=== PATIENT | female | born 1965 | race Caucasian/White ===

== ENCOUNTER 2016-07-26 23:13 | Emergency (ER) | payer OTHER ==
[~2016-07-26] VITALS: Ht 170.2 cm; Wt 92.1 kg
[~2016-07-26 23:13] MED LIST: CLON1TAB3 PO; CMD/25 PO; MXL10 PO; ONDA4TAB7 SL; SERT50TA PO; TRAZ100T29 PO; WARF5TAB90 PO
[2016-07-26 23:20] VITALS: TEMP 36.5; Ht 170.2 cm; Wt 92.1 kg
[2016-07-26] MEDS ORDERED: MoRPHine SULFATE 10 MG/ML CARP/VIAL ONE (23:21)
[2016-07-26] MEDS ORDERED: SODIUM CHLORIDE 0.9% 1000ML 1,000 ML IV STA (23:29)
[2016-07-26] MEDS ORDERED: PROCHLORPERAZINE 5 MG/ML 2 ML VIAL IV STA (23:29)
[2016-07-26] MEDS ORDERED: MoRPHine SULFATE 4 MG/ML 1 ML CARP\\VIAL IV STA (23:29)
[2016-07-26] MEDS ORDERED: DiphenhydrAMINE HCL 50 MG/ML VIAL IV STA (23:29)
[2016-07-26] MEDS ORDERED: ZLF/100 PO (23:37)
--- NOTE | 2016-07-26 23:37 | EMERGENCY ROOM VISIT NOTE ---
History Report prepared by Malick: Kathy Rosario Under the Supervision of: Dr. Kenneth Garber M.D. First contact with patient: 23:19 Chief Complaint: ABDOMINAL PAIN Stated Complaint: ABD PAIN History of Present Illness The patient is a 51 year old female who presents to the Emergency Room with complaints of persistent epigastric abdominal pain that began around 1899. She currently rates her discomfort as a 9/10 in severity. The patient states that her pain started a few days ago in the epigastric and in the left flank. She additionally notes that a few days ago she developed a migraine, but she states that she experiences these from time to time. The patient states that she feels full, but her daughter notes that the patient eats to the point that makes her sick and vomit. She additionally notes nausea and lightheadedness today. The patient denies any diarrhea or recent fall. The patient's daughter notes that the patient has been off balance for the past few days, but additionally notes that she has had this problem in the past. She denies taking any narcotic pain medications on a daily basis any more, noting that she only takes medications for her migraines. Per nursing staff, the patient received 6 mg of Morphine prior to arrival. Per records the patient has had 14 Cat Scans of her abdomen/pelvis in the last three years. Source of History: patient Onset: 1899 Position: abdomen (epigastric) Symptom Intensity: 9/10 Timing: other (persistent) Associated Symptoms: + headache (migraine), + nausea, + vomiting, No diarrhea Note: Associated Symptoms: feeling full, lightheaded Review of Systems See HPI for pertinent positives & negatives. A total of 10 systems reviewed and were otherwise negative. Past Medical & Surgical Medical Problems: (1) Anticoagulant long-term use (2) Depression (3) Flank pain (4) History of obesity (5) History of pulmonary embolism (6) Migraine headache (7) Severe malnutrition (8) Symptomatic anemia Surgical Problems: (1) Status post cholecystectomy (2) Status post gastric bypass for obesity (3) Status post hysterectomy (4) Status post splenectomy Family History Diabetes mellitus FH: cancer FH: heart disease Social History Smoking Status: Current Every Day Smoker Alcohol Use: none Drug Use: none Marital Status: Housing Status: lives with family Occupation Status: unemployed Current/Historical Medications Scheduled Calcium Carbonate (Tums), 1 TAB PO DAILY Clonazepam (Klonopin), 1 MG PO TID Coenzyme Q10 (Ubidecarenone) (Co Q-10), 150 MG PO BID Cyanocobalamin (Cyanocobalamin), 1 DOSE INJ EVERY 3 MONTHS Magnesium Oxide (mg Supplement (Magnesium Oxide), 500 MG PO DAILY Multivitamin (Multivitamin), 1 TAB PO DAILY Onabotulinumtoxina (Botox), 1 DROP INJ EVERY 3 MONTHS Riboflavin (Vitamin B-2), 200 MG PO BID Sertraline HCl (Sertraline HCl), 100 MG PO DAILY Warfarin Sodium (Coumadin), 5 MG PO DAILY Scheduled PRN Ondansetron Hcl (Zofran), 4 MG PO Q6 PRN for Nausea Rizatriptan Benzoate (Rizatriptan Benzoate), 10 MG PO UD PRN for Headache Trazodone Hcl (Trazodone), 100 MG PO HS PRN for Sleep Allergies Coded Allergies: Latex1 -Allergic Contact Dermititis (Verified Allergy, Unknown, RASH, ) Sulfa Antibiotics (Verified Allergy, Unknown, HIVES, 07/26/16) Physical Exam Vital Signs Date Time Temp Pulse Resp B/P Pulse Ox O2 Delivery O2 Flow Rate FiO2 07/27/16 01:19 66 18 100/55 98 07/27/16 00:27 63 18 104/60 97 07/26/16 23:20 36.5 83 18 124/73 98 Room Air Physical Exam GENERAL: Patient is uncomfortable appearing, anxious appearing, in moderate distress. HEENT: No acute trauma, normocephalic atraumatic, mucous membranes moist, no nasal congestion, no scleral icterus. NECK: No stridor, no adenopathy, no meningismus, trachea is midline. LUNGS: No dyspnea. Clear to auscultation and equal bilaterally. No wheeze, no rhonchi. HEART: Regular rate and rhythm. No murmurs, rubs, gallops appreciated. ABDOMEN: Patient begins moaning in pain prior to abdominal exam. Unable to palpate as patient states that it is too painful. Unable to listen to bowel sounds as patient won't let me. BACK: No midline tenderness, no CVA tenderness EXTREMITIES: Normal motion all extremities, no cyanosis, no edema. NEUROLOGIC: Alert and oriented, no acute motor or sensory deficits, no focal weakness, cranial nerves grossly intact. SKIN: No rash, no jaundice, no diaphoresis. Medical Decision & Procedures ER Provider Diagnostic Interpretation: X ray results and stated below per my interpretation and radiologist interpretation. Other radiology results and stated below per my review and radiologist interpretation: CT Head: Comparison: CT dated 12/08/2015 No intracranial hemorrhage, acute infarct or other acute intracranial abnormality. CT Abdomen and Pelvis: Comparison: CT dated 05/08/2016 Stable postsurgical changes of gastric bypass, cholecystectomy, splenectomy and hysterectomy. Pleural thickening at the left lung base, possibly scarring related to adjacent surgery. No large fluid collection or drainable abscess visualized. No evidence of acute appendicitis, bowel obstruction or free air. Moderate stool in the colon. Correlate clinically for fecal retention. Stable configuration of the liver with left hepatic lobe atrophy. Stable heterogeneity of the liver. Stable 1.2 cm hypodensity in the right hepatic lobe. Atelectasis versus scarring at the left lung base. Radiologist: Mami Dumont MD Study ready at 0041 and initial results transmitted at 0056 Laboratory Results 07/26/16 23:40 Red Blood Count 5.17, Mean Corpuscular Volume 86.8, Mean Corpuscular Hemoglobin 30.0, Mean Corpuscular Hemoglobin Concent 34.5, Mean Platelet Volume 10.1, Neutrophils (%) (Auto) 49.5, Lymphocytes (%) (Auto) 37.2, Monocytes (%) (Auto) 10.7, Eosinophils (%) (Auto) 1.9, Basophils (%) (Auto) 0.5, Neutrophils # (Auto ) 6.41, Lymphocytes # (Auto) 4.80, Monocytes # (Auto) 1.38, Eosinophils # (Auto ) 0.24, Basophils # (Auto) 0.06 07/26/16 23:40 Test 07/26/16 23:35 07/26/16 23:38 07/26/16 23:40 07/26/16 23:45 Urine Color YELLOW Urine Appearance CLEAR (CLEAR) Urine pH 5.5 (4.5-7.5) Urine Specific [place] 1.003 (1.000-1.030) Urine Protein NEG (NEG) Urine Glucose (UA) NEG (NEG) Urine Ketones NEG (NEG) Urine Occult Blood NEG (NEG) Urine Nitrite NEG (NEG) Urine Bilirubin NEG (NEG) Urine Urobilinogen NEG (NEG) Urine Leukocyte Esterase NEG (NEG) Urine WBC (Auto) 1-5 /hpf (0-5) Urine RBC (Auto) 0-4 /hpf (0-4) Urine Hyaline Casts (Auto) 0 /lpf (0-5) Urine Epithelial Cells (Auto) 5-10 /lpf (0-5) Urine Bacteria (Auto) NEG (NEG) Bedside Hemoglobin 16.7 g/dl (12.0-16.0) Bedside Hematocrit 49 % (37-47) Bedside Sodium 145 mEq/L (135-144) Bedside Potassium 3.9 mEq/L (3.3-5.0) Bedside Chloride 104 mEq/L (101-112) Bedside Total CO2 25 mEq/l (24-31) Bedside Blood Urea Nitrogen 10 mg/dl (7-18) Bedside Creatinine 0.7 mg/dl (0.6-1.3) Bedside Glucose (other) 84 mg/dl (70-99) Bedside Ionized Calcium (Dionne) 1.18 mmol/l (1.12-1.32) White Blood Count 12.92 K/uL (4.8-10.8) Red Blood Count 5.17 M/uL (4.2-5.4) Hemoglobin 15.5 g/dL (12.0-16.0) Hematocrit 44.9 % (37-47) Mean Corpuscular Volume 86.8 fL (80-100) Mean Corpuscular Hemoglobin 30.0 pg (25-34) Mean Corpuscular Hemoglobin Concent 34.5 g/dl (32-36) Platelet Count 330 K/uL (130-400) Mean Platelet Volume 10.1 fL (7.4-10.4) Neutrophils (%) (Auto) 49.5 % Lymphocytes (%) (Auto) 37.2 % Monocytes (%) (Auto) 10.7 % Eosinophils (%) (Auto) 1.9 % Basophils (%) (Auto) 0.5 % Neutrophils # (Auto) 6.41 K/uL (1.4-6.5) Lymphocytes # (Auto) 4.80 K/uL (1.2-3.4) Monocytes # (Auto) 1.38 K/uL (0.11-0.59) Eosinophils # (Auto) 0.24 K/uL (0-0.5) Basophils # (Auto) 0.06 K/uL (0-0.2) RDW Standard Deviation 63.4 fL (36.4-46.3) RDW Coefficient of Variation 20.0 % (11.5-14.5) Immature Granulocyte % (Auto) 0.2 % Immature Granulocyte # (Auto) 0.03 K/uL (0.00-0.02) Tear Drop Cells 1+ Prothrombin Time 14.9 SECONDS (9.0-12.0) Prothromb Time International Ratio 1.4 (0.9-1.1) Activated Partial Thromboplast Time 26.7 SECONDS (21.0-31.0) Partial Thromboplastin Ratio 1.0 Anion Gap 8.0 mmol/L (3-11) Est Creatinine Clear Calc Drug Dose 98.5 ml/min Estimated GFR () 102.2 Estimated GFR (Non- 88.2 BUN/Creatinine Ratio 12.8 (10-20) Calcium Level 8.6 mg/dl (8.5-10.1) Total Bilirubin 0.6 mg/dl (0.2-1) Direct Bilirubin 0.2 mg/dl (0-0.2) Aspartate Amino Transf (AST/SGOT) 124 U/L (15-37) Alanine Aminotransferase (ALT/SGPT) 101 U/L (12-78) Alkaline Phosphatase 232 U/L (45-117) Total Protein 7.4 gm/dl (6.4-8.2) Albumin 3.4 gm/dl (3.4-5.0) Lipase 266 U/L (73-393) Bedside Lactic Acid Venous 1.21 mmol/L (0.90-1.70) Laboratory results as reviewed by me. Medications Administered Medications (Trade) Dose Ordered Sig/Pat Route Start Time Stop Time Status Last Admin Dose Admin Prochlorperazine Edisylate (Compazine Inj) 10 mg NOW STAT IV 07/26/16 23:29 07/26/16 23:30 DC 07/26/16 23:45 10 MG Morphine Sulfate (MoRPHine SULFATE INJ) 4 mg NOW STAT IV 07/26/16 23:29 07/26/16 23:30 DC 07/26/16 23:45 4 MG Diphenhydramine HCl 50 mg 50 mg NOW STAT IV 07/26/16 23:29 07/26/16 23:30 DC 07/26/16 23:44 50 MG Sodium Chloride (Nss 1000ml) 1,000 ml @ 999 mls/hr Q1H1M STAT IV 07/26/16 23:29 07/27/16 00:29 DC 07/26/16 23:29 999 MLS/HR Morphine Sulfate (MoRPHine SULFATE INJ) 4 mg NOW STAT IV 07/27/16 01:05 07/27/16 01:06 DC 07/27/16 01:14 4 MG ED Course 2321: The patient was evaluated in room A10. A complete history and physical exam was performed. 2329: Ordered Sodium Chloride 1000 ml @ 999 mls/hr IV, Benadryl Inj 50 mg IV, Morphine Sulfate 4 mg IV, Compazine Inj 10 mg IV. 0001: I reevaluated the patient and she states that her pain has only gotten worse since arrival. She looks calm and in no distress. She will have a CT scan. 0105: Ordered Morphine Sulfate 4 mg IV. 0110: I reevaluated the patient and I discussed the exam findings with her. I discussed the treatment plan with her and she verbalized complete understanding and agreement. The patient is ready to go home. Medical Decision Differential: Cholecystitis, Gallbladder disfunction, Hepatic Disfunction, Gastritis/PUD, Pancreatitis, ACS, Aortic Pathology, amongst other pathologies entertained. 51 yr old female well known to department for frequent visits relating to abdominal pain, migraines and other pains. She arrives with acute LUQ pain. She is essentially not letting me examine her without acting in severe distress though otherwise lays in no distress on bed. She also notes migraine radiating to neck which she admits is very much chronic and gets worse when her abdominal pain flare up. There is no evidence of meningitis. She is however on coumadin. Even after initial pain/nausea meds she maintains no improvement in pain (but again does not appear in severe distress). Discussed the risks of repeat CT along with fact she has had many of them before, but she makes clear this pain is different (despite previous notes seeming similar). Family make very clear they wish to have CT done as does patient. CT unremarkable for acute findings. CT head negative as well. She was given another dose pain medicatoins and stating feeling better and wishes to go home. I have stressed PCP follow up. RTED in 12-24 hours if worsening or no improvement. She is stable, does not have surgical abdomen and is clearly in no distress. Labs with just mild wbc elevation though with normal CT and no fever I do not feel it represents sepsis. She has wnl lactic acid as well. Impression Primary Impression: Abdominal pain, acute, left upper quadrant Additional Impression: Headache Scribe Attestation The scribe's documentation has been prepared under my direction and personally reviewed by me in its entirety. I confirm that the note above accurately reflects all work, treatment, procedures, and medical decision making performed by me. Departure Information Dispostion Home / Self-Care Referrals Jessee Wisdom M.D. (PCP) Forms Call Back Authorization, HOME CARE DOCUMENTATION FORM, IMPORTANT VISIT INFORMATION Patient Instructions My [facility] Additional Instructions No acute reason for you pain was found. Imaging appears similar to previous imaging without any acute findings or need for surgical intervention. You will need to follow up with your primary care provider for further evaluation. You have received a narcotic pain medication in the emergency department. These medications may cause drowsiness and should not be used with other sedative medications. Do not drive, drink alcohol, perform dangerous activities , nor make important decisions after taking these medications. assistant terminal manager use or inappropriate use may lead to addiction. Problem Qualifiers Additional Impression: Headache Headache type: unspecified Headache chronicity pattern: chronic headache Intractability: not intractable Qualified Codes: R51 - Headache
[2016-07-26] MEDS ORDERED: ONDA4TAB46 PO (23:39)
[2016-07-26] MEDS ORDERED: MAGN500T22 PO (23:39)
[2016-07-26] MEDS ORDERED: VITB2100 PO (23:39)
[2016-07-26] MEDS ORDERED: CYNI1000 INJ (23:43)
[2016-07-26] MEDS ORDERED: CALC500C3 PO (23:43)
[2016-07-26] MEDS ORDERED: COEN150C PO (23:43)
[2016-07-26] MEDS ORDERED: MULT-506 PO (23:43)
[2016-07-26] MEDS ORDERED: BOTU200I INJ (23:44)
[2016-07-26 23:57] LABS: BASO % 0.5 %; BASO ABS # 0.06 K/uL (0-0.2); EOS % 1.9 %; HEMATOCRIT 44.9 % (37-47); IG% 0.2 %; LYMPH % 37.2 %; MEAN CELL VOLUME 86.8 fL (80-100); MEAN CORPUSCULAR HGB CONC 34.5 g/dl (32-36); MEAN PLATELET VOLUME 10.1 fL (7.4-10.4); MONO % 10.7 %; NEUT % 49.5 %; PLATELET COUNT 330 K/uL (130-400); RED BLOOD COUNT 5.17 M/uL (4.2-5.4); WHITE BLOOD COUNT 12.92 K/uL (4.8-10.8)
[2016-07-27 00:02] LABS: ISTAT CREATININE 0.7 mg/dl (0.6-1.3); ISTAT HEMOGLOBIN 16.7 g/dl (12.0-16.0); ISTAT IONIZED CALCIUM 1.18 mmol/l (1.12-1.32)
[2016-07-27 00:05] LABS: URINE APPEARANCE CLEAR (CLEAR); URINE BILIRUBIN NEG (NEG); URINE COLOR YELLOW; URINE NITRITE NEG (NEG); URINE PH 5.5 (4.5-7.5); URINE SPECIFIC GRAVITY 1.003 (1.000-1.030); UROBILINOGEN NEG (NEG); ZZUR CULT IF INDIC CLEAN CATCH NO
[2016-07-27 00:10] LABS: INR 1.4 (0.9-1.1); PROTHROMBIN TIME (PATIENT) 14.9 SECONDS (9.0-12.0)
[2016-07-27] MEDS ORDERED: OPTIRAY 320 IV PRN (00:15)
[2016-07-27 00:18] LABS: BUN/CREATININE RATIO 12.8 (10-20); CALCIUM 8.6 mg/dl (8.5-10.1); CREATININE 0.77 mg/dl (0.60-1.20)
[2016-07-27 00:21] LABS: MANUAL MICROSCOPIC REQUIRED? NO; REVIEW REQ? NO
[2016-07-27 00:56] LABS: COMPLETE YES; TEAR DROP CELLS 1+
[2016-07-27] MEDS ORDERED: MoRPHine SULFATE 4 MG/ML 1 ML CARP\\VIAL IV STA (01:05)
[2016-07-27 01:19] VITALS: BP 100/55; PULSE 66; O2SAT 98
--- NOTE | 2016-07-27 06:39 | DIAGNOSTIC IMAGING REPORT ---
CT HEAD WITHOUT CONTRAST (CT) CLINICAL HISTORY: Dizziness. Patient on Coumadin. COMPARISON STUDY: 12/08/2015 TECHNIQUE: Axial CT of the brain is performed from the vertex to the skull base. IV contrast was not administered for this examination. CT DOSE: 1581.31 mGy.cm FINDINGS: No intra or extra-axial mass lesions are visualized. There is no CT evidence of acute cortical infarction. There is no evidence of midline shift. There is no acute hemorrhage. No calvarial fractures are visualized. There are patchy white matter hypodensities likely on a small vessel basis. There is no evidence of pathologic ventricular dilatation. There is no evidence of acute sinusitis IMPRESSION: No acute intracranial findings Electronically signed by: Reji Ruiz M.D. 07/27/2016 6:37 AM Dictated Date/Time: 07/27/2016 6:36 AM
--- NOTE | 2016-07-27 07:47 | DIAGNOSTIC IMAGING REPORT ---
CT SCAN OF THE ABDOMEN AND PELVIS WITH IV CONTRAST CLINICAL HISTORY: Generalized abdominal pain. COMPARISON STUDY: Abdominal CT dated 05/08/2016 and 03/04/2014. TECHNIQUE: Following the IV administration of 93 cc of Optiray 320, CT scan of the abdomen and pelvis is performed from the lung bases to the proximal femora. Images are reviewed in the axial, sagittal, and coronal planes. IV contrast was administered without complication. Automated dose control exposure was utilized. FINDINGS: Lung bases: The heart is normal in size and without pericardial effusion. There is significant bibasilar atelectasis. Scarring is suggested at the left lung base. There is no airspace consolidation typical for pneumonia or pleural effusion. Pleural thickening and scarring at the left base is unchanged. Liver: There is unchanged atrophy of the left hepatic lobe with associated intrahepatic biliary ductal dilatation and MELISSA. The right lobe of liver is normal in size, contour, and attenuation. There is no intrahepatic biliary ductal dilatation. The hepatic veins and portal veins are patent. A 1.7 cm low-attenuation lesion in the right hepatic lobe seen on image #123 is unchanged and may represent a small hemangioma. Gallbladder: Surgically absent noting clips in the gallbladder fossa. Spleen: Surgically absent. Pancreas: There is moderate glandular atrophy. There is stable mild dilatation of the main pancreatic duct. This measures up to 4 mm. Adrenal glands: Unremarkable. Kidneys: The contrast enhanced kidneys demonstrate minimal cortical atrophy and are without hydronephrosis. The kidneys enhance symmetrically. Abdominal vasculature: The abdominal aorta is normal in course and caliber. Stomach and bowel: There are postoperative changes from gastric and small bowel surgery/resections, likely related previous gastric bypass. No bowel obstruction is identified. There is moderate colonic fecal retention. The appendix is well-visualized and normal. Peritoneum: There is no intraperitoneal free air or abdominal ascites. There is soft tissue thickening/scarring in the left upper quadrant below the diaphragm. No organized fluid collection is identified. Lymphadenopathy: None. Pelvic viscera: The bladder is normal as visualized. The uterus is surgically absent. No adnexal lesion is seen. Skeletal structures: The skeletal structures are osteopenic. There is mild lumbosacral spondylosis. No lytic or blastic lesions are seen. IMPRESSION: 1. There are no acute infectious or inflammatory findings in the abdomen or pelvis. 2. Findings are consistent with previous gastric bypass/surgery. No bowel obstruction is seen. 3. There is moderate constipation. 4. Status post splenectomy. 5. There is unchanged atrophy of the left hepatic lobe with associated intrahepatic biliary ductal dilatation. 6. Additional findings as above. Electronically signed by: Glynn Moreno M.D. 07/27/2016 7:46 AM Dictated Date/Time: 07/27/2016 7:39 AM
== END 2016-07-27 01:19 | disposition home or self-care (01) ==
LOC: EDBD 23:13 → C.EDA 23:14
DX: R10.12 Left upper quadrant pain (principal); R51 Headache; R42 Dizziness and giddiness; F32.9 Major depressive disorder, single episode, unspecified; F17.210 Nicotine dependence, cigarettes, uncomplicated; Z86.711 Personal history of pulmonary embolism; Z98.84 Bariatric surgery status; Z90.49 Acquired absence of other specified parts of digestive tract; Z90.710 Acquired absence of both cervix and uterus; Z90.81 Acquired absence of spleen; Z83.3 Family history of diabetes mellitus; Z79.01 Long term (current) use of anticoagulants; Z79.899 Other long term (current) drug therapy

== ENCOUNTER → 2017-05-21 | Outpatient (CLI) | payer OTHER ==
[~2017-05-21] MED LIST changes: +BOTU200I INJ; +CALC500C3 PO; -CMD/25 PO; +COEN150C PO; +CYNI1000 INJ; +MAGN500T22 PO; +MULT-506 PO; -MXL10 PO; +ONDA4TAB46 PO; -ONDA4TAB7 SL; +RIZA10TA21 PO; -SERT50TA PO; +VITB2100 PO; +ZLF/100 PO
--- NOTE | 2017-05-21 11:37 | DIAGNOSTIC IMAGING REPORT ---
SINGLE CONTRAST UPPER GI SERIES CLINICAL HISTORY: Status post Ariel-en-Y gastric bypass surgery. History of perforation and surgical repair. COMPARISON STUDY: Abdominal CT dated 07/27/16 upper GI series dated 03/27/2015. TECHNIQUE: A single contrast upper GI series was performed. Spot images of the esophagus and stomach were obtained in multiple obliquities both upright and prone. FINDINGS: The patient swallowed barium without difficulty. Dysmotility is observed. The esophagus is widely patent and without evidence of intrinsic or extrinsic mass. Contour irregularity in the midesophagus is nonspecific and may be related to previous stenting. No stricture is seen. The mucosal pattern is normal as visualized. Gastroesophageal reflux was observed during the examination. The gastroesophageal junction distends normally. Findings are consistent with a history of Ariel-en-Y gastric bypass surgery. There is no evidence of stricture or leakage at the gastrojejunostomy site. No extraluminal contrast is seen. There is no filling of the excluded gastric pouch of the duodenum. Fluoroscopy time: 2.5 minutes. Fluoroscopic images: 18 IMPRESSION: 1. Findings are consistent with a history of Ariel-en-Y gastric bypass surgery. There is no evidence of stricture or leakage. 2. Gastroesophageal reflux was observed. 3. There is no evidence of esophageal stricture. Mild irregularity in the midesophagus is nonspecific and may be related to previous stent. Clinical correlation will be required. Electronically signed by: Glynn Moreno M.D. 05/21/2017 11:36 AM Dictated Date/Time: 05/21/2017 11:30 AM
== END | disposition home or self-care (01) ==
LOC: C.RAD 10:40
PROVIDERS: ATTEND Physician Assistant
DX: R10.13 Epigastric pain (principal); K21.9 Gastro-esophageal reflux disease without esophagitis

== ENCOUNTER 2018-02-06 19:42 | Emergency (ER) | payer OTHER ==
[~2018-02-06] VITALS: Ht 170.2 cm; Wt 94.8 kg
[~2018-02-06 19:42] MED LIST changes: +CLON1TAB10 PO; -CLON1TAB3 PO; -COEN150C PO; -CYNI1000 INJ; -MAGN500T22 PO; -MULT-506 PO; -ONDA4TAB46 PO; -RIZA10TA21 PO; -VITB2100 PO; -ZLF/100 PO
[2018-02-06 19:52] VITALS: TEMP 36.3; Ht 170.2 cm; Wt 94.8 kg
[2018-02-06] MEDS ORDERED: SODIUM CHLORIDE 0.9% 1000ML 1,000 ML IV STA (20:23)
[2018-02-06] MEDS ORDERED: RIZA10TA21 PO (20:35)
[2018-02-06] MEDS: MoRPHine SULFATE 4 MG/ML 1 ML CARP\\VIAL IV PRN ×2 (21:02→22:14)
[2018-02-06] MEDS ORDERED: ONDANSETRON INJ 2 MG/ML 2 ML VIAL IV STA (21:03)
[2018-02-06] MEDS ORDERED: ONDANSETRON INJ 2 MG/ML 2 ML VIAL ONE (21:03)
[2018-02-06] MEDS ORDERED: BUPR150T5 PO (21:16)
[2018-02-06] MEDS ORDERED: ZOLM5SPR (21:16)
[2018-02-06] MEDS ORDERED: BUSP-8 PO (21:16)
[2018-02-06] MEDS ORDERED: TPM100 PO (21:16)
[2018-02-06] MEDS ORDERED: ZNF/4 PO (21:16)
[2018-02-06] MEDS ORDERED: WARF-246 PO ×2 (21:16)
--- NOTE | 2018-02-06 21:45 | DIAGNOSTIC IMAGING REPORT ---
SINGLE VIEW CHEST CLINICAL HISTORY: Change in mental status. Weakness. FINDINGS: An AP, portable, upright chest radiograph is compared to study dated 12/08/2015 and correlated with chest CT dated 06/22/2015. The examination is degraded by portable technique and patient rotation. The cardiomediastinal silhouette is unremarkable. Chronic pleural-parenchymal change is seen at the left lung base. This is similar to prior studies. The lungs are otherwise clear. No large pleural effusion or pneumothorax is seen. There is chronic posttraumatic deformity of the left lower ribs. IMPRESSION: Chronic pleural-parenchymal change is noted at the left lung base. No acute cardiopulmonary abnormality is seen. Electronically signed by: Glynn Moreno M.D. 02/06/2018 9:43 PM Dictated Date/Time: 02/06/2018 9:42 PM
--- NOTE | 2018-02-06 22:07 | DIAGNOSTIC IMAGING REPORT ---
CT SCAN OF THE BRAIN WITHOUT IV CONTRAST CLINICAL HISTORY: Weakness. Change in mental status. COMPARISON STUDY: CT of the brain dated 07/27/2016. TECHNIQUE: Unenhanced axial CT scan of the brain is performed from the vertex to the skull base. A dose lowering technique was utilized adhering to the principles of ALARA. CT DOSE: 537.48 mGy.cm FINDINGS: Brain parenchyma: The brain parenchyma is normal in appearance. There is no hemorrhage, mass effect, or evidence of acute territorial ischemia by CT criteria. [place]-white matter is preserved. No extra-axial fluid collection is seen. Ventricles, sulci, cisterns: Normal in configuration. Intracranial vasculature: The visualized intracranial vasculature at the skull base is normal in appearance. Calvarium: Unremarkable. Sinuses and mastoids: The visualized paranasal sinuses are clear. There is a trace right mastoid effusion. The left mastoid air cells are well pneumatized. Orbits: The bony orbits are grossly intact. IMPRESSION: There is no hemorrhage, mass effect, or evidence of acute territorial ischemia by CT criteria. Electronically signed by: Glynn Moreno M.D. 02/06/2018 10:06 PM Dictated Date/Time: 02/06/2018 10:05 PM
[2018-02-06 22:27] LABS: HEMATOCRIT 48.1 % (37-47); HEMOGLOBIN 15.7 g/dL (12.0-16.0); MEAN CORPUSCULAR HGB CONC 32.6 g/dl (32-36); MEAN PLATELET VOLUME 11.2 fL (7.4-10.4); PLATELET COUNT 390 K/uL (130-400); RED CELL DISTRIBUTION WIDTH CV 19.6 % (11.5-14.5); RED CELL DISTRIBUTION WIDTH SD 65.6 fL (36.4-46.3); WHITE BLOOD COUNT 11.89 K/uL (4.8-10.8)
[2018-02-06] MEDS ORDERED: CEFTRIAXONE SOD INJ 1 GM ADDVIAL IV STA (22:41)
[2018-02-06 22:43] LABS: INR 3.3 (0.9-1.1); PTT PATIENT 33.7 SECONDS (21.0-31.0)
[2018-02-06 23:03] LABS: ALBUMIN 3.1 gm/dl (3.4-5.0); ALT/SGPT 71 U/L (12-78); BLOOD UREA NITROGEN 7 mg/dl (7-18); CALCIUM 8.6 mg/dl (8.5-10.1); CARBON DIOXIDE 24 mmol/L (21-32); CREATININE 0.89 mg/dl (0.60-1.20); GLUCOSE 66 mg/dl (70-99); LIPASE 99 U/L (73-393); SODIUM 141 mmol/L (136-145)
[2018-02-06 23:07] LABS: ALKALINE PHOSPHATASE 194 U/L (45-117); CKMB < 1.0 ng/ml (0.5-3.6); TOTAL PROTEIN 7.1 gm/dl (6.4-8.2)
[2018-02-06] MEDS ORDERED: LEVO-366 PO (23:24)
--- NOTE | 2018-02-06 23:24 | EMERGENCY ROOM VISIT NOTE ---
History Report prepared by Malick: Mesfin Liriano Under the Supervision of: Dr. Ruben Jarvis D.O. First contact with patient: 20:13 Chief Complaint: ABNORMAL LABS Stated Complaint: HIGH INR,DIZZY,LIGHTHEADED,BLOOD IN URINE,CRAMPING History of Present Illness The patient is a 53 year old female who presents to the Emergency Room with complaints of abnormal labs that she did herself yesterday showing a high INR. She reports her symptoms consist of nausea, vomiting, hematuria, back pain, headache, dizziness, and intermittent abdomen cramping. She reports doctors at [facility] told her to report to the ED thinking she might have a stomach bleed, although she denies hematochezia. The patient reports that she had all of her teeth removed about 3-4 weeks ago forcing her to change her diet. She also has a history of pulmonary embolisms with the last one occurring about 4 years ago and a gastric bypass in 2006. Source of History: patient Onset: Yesterday Position: abdomen Timing: constant Associated Symptoms: + headache, + nausea, + vomiting, + urinary symptoms, + weakness, No hematochezia Review of Systems See HPI for pertinent positives & negatives. A total of 10 systems reviewed and were otherwise negative. Past Medical & Surgical Medical Problems: (1) Anticoagulant long-term use (2) Depression (3) Flank pain (4) History of obesity (5) History of pulmonary embolism (6) Migraine headache (7) Severe malnutrition (8) Symptomatic anemia Surgical Problems: (1) Status post cholecystectomy (2) Status post gastric bypass for obesity (3) Status post hysterectomy (4) Status post splenectomy Family History Diabetes mellitus FH: cancer FH: heart disease Social History Smoking Status: Current Some Day Smoker Alcohol Use: none Drug Use: none Marital Status: Housing Status: lives with family Occupation Status: unemployed Current/Historical Medications Scheduled Bupropion Hcl (Bupropion Hcl Xl), 150 MG PO DAILY Buspirone Hcl (Buspirone Hcl), 10 MG PO BID Coenzyme Q10 (Ubidecarenone) (Co Q-10), 150 MG PO HOLD Cyanocobalamin (Cyanocobalamin), 1,000 MCG IM Q3MO Magnesium Oxide (mg Supplement (Magnesium Oxide), 500 MG PO HOLD Multivitamin (Multivitamin), 1 TAB PO HOLD Riboflavin (Vitamin B-2), 200 MG PO HOLD Sertraline HCl (Sertraline HCl), 100 MG PO DAILY Tizanidine (Tizanidine HCl), 4 MG PO BID Topiramate (Topiramate), 100 MG PO HS Warfarin Sodium (Warfarin Sodium), 2.5 MG PO 2XWK Warfarin Sodium (Warfarin Sodium), 5 MG PO 5XWK Scheduled PRN Ondansetron Hcl (Zofran), 4 MG PO Q6H PRN for Nausea Rizatriptan Benzoate (Rizatriptan Benzoate), 10 MG PO UD PRN for Headache Trazodone Hcl (Trazodone), 100 MG PO HS PRN for Sleep Zolmitriptan (Zomig), 1 SPRAY NA UD PRN for Headache Allergies Coded Allergies: Latex1 -Allergic Contact Dermititis (Verified Allergy, Unknown, RASH, ) Sulfa Antibiotics (Verified Allergy, Unknown, HIVES, 07/26/16) Physical Exam Vital Signs Date Time Temp Pulse Resp B/P (MAP) Pulse Ox O2 Delivery O2 Flow Rate FiO2 02/06/18 21:35 62 18 140/76 99 Room Air 02/06/18 20:46 60 02/06/18 19:52 36.3 70 18 108/74 96 Room Air Physical Exam CONSTITUTIONAL/VITAL SIGNS: Reviewed / noted above. GENERAL: Non-toxic in appearance. INTEGUMENTARY: Warm, dry, and [place]. HEAD: Normocephalic. EYES: without scleral icterus or trauma. ENT/OROPHARYNX: clear and moist. LYMPHADENOPATHY/NECK: Is supple without lymphadenopathy or meningismus. RESPIRATORY: Lungs clear and equal. CARDIOVASCULAR: Regular rate and rhythm. GI/ABDOMEN: Soft and nontender. No organomegaly or pulsatile mass. No rebound or guarding. Normal bowel sounds. EXTREMITIES: Warm and well perfused. BACK: No CVA tenderness. NEUROLOGICAL: Intact without focal deficits. PSYCHIATRIC: normal affect. MUSCULOSKELETAL: Normally developed with good muscle tone. Medical Decision & Procedures ER Provider Diagnostic Interpretation: Radiology results as stated below per my review and radiologist interpretation: SINGLE VIEW CHEST CLINICAL HISTORY: Change in mental status. Weakness. FINDINGS: An AP, portable, upright chest radiograph is compared to study dated 12/08/2015 and correlated with chest CT dated 06/22/2015. The examination is degraded by portable technique and patient rotation. The cardiomediastinal silhouette is unremarkable. Chronic pleural-parenchymal change is seen at the left lung base. This is similar to prior studies. The lungs are otherwise clear. No large pleural effusion or pneumothorax is seen. There is chronic posttraumatic deformity of the left lower ribs. IMPRESSION: Chronic pleural-parenchymal change is noted at the left lung base. No acute cardiopulmonary abnormality is seen. Electronically signed by: Glynn Moreno M.D. 02/06/2018 9:43 PM Dictated Date/Time: 02/06/2018 9:[address] SCAN OF THE BRAIN WITHOUT IV CONTRAST CLINICAL HISTORY: Weakness. Change in mental status. COMPARISON STUDY: CT of the brain dated 07/27/2016. TECHNIQUE: Unenhanced axial CT scan of the brain is performed from the vertex to the skull base. A dose lowering technique was utilized adhering to the principles of ALARA. CT DOSE: 537.48 mGy.cm FINDINGS: Brain parenchyma: The brain parenchyma is normal in appearance. There is no hemorrhage, mass effect, or evidence of acute territorial ischemia by CT criteria. [place]-white matter is preserved. No extra-axial fluid collection is seen. Ventricles, sulci, cisterns: Normal in configuration. Intracranial vasculature: The visualized intracranial vasculature at the skull base is normal in appearance. Calvarium: Unremarkable. Sinuses and mastoids: The visualized paranasal sinuses are clear. There is a trace right mastoid effusion. The left mastoid air cells are well pneumatized. Orbits: The bony orbits are grossly intact. IMPRESSION: There is no hemorrhage, mass effect, or evidence of acute territorial ischemia by CT criteria. Electronically signed by: Glynn Moreno M.D. 02/06/2018 10:06 PM Dictated Date/Time: 02/06/2018 10:05 PM Laboratory Results 02/06/18 21:41 Red Blood Count 5.23, Mean Corpuscular Volume 92.0, Mean Corpuscular Hemoglobin 30.0, Mean Corpuscular Hemoglobin Concent 32.6, Mean Platelet Volume 11.2 02/06/18 21:41 Test 02/06/18 20:40 02/06/18 21:41 Urine Color YELLOW Urine Appearance CLOUDY (CLEAR) Urine pH 6.0 (4.5-7.5) Urine Specific Mark 1.015 (1.000-1.030) Urine Protein NEG (NEG) Urine Glucose (UA) NEG (NEG) Urine Ketones TRACE (NEG) Urine Occult Blood TRACE (NEG) Urine Nitrite POS (NEG) Urine Bilirubin NEG (NEG) Urine Urobilinogen NEG (NEG) Urine Leukocyte Esterase SMALL (NEG) Urine WBC (Auto) 10-30 /hpf (0-5) Urine RBC (Auto) 0-4 /hpf (0-4) Urine Hyaline Casts (Auto) 10-30 /lpf (0-5) Urine Epithelial Cells (Auto) 10-20 /lpf (0-5) Urine Bacteria (Auto) 4+ (NEG) Urine Crystals CALCIUM OXALATE (NONE White Blood Count 11.89 K/uL (4.8-10.8) Red Blood Count 5.23 M/uL (4.2-5.4) Hemoglobin 15.7 g/dL (12.0-16.0) Hematocrit 48.1 % (37-47) Mean Corpuscular Volume 92.0 fL (80-100) Mean Corpuscular Hemoglobin 30.0 pg (25-34) Mean Corpuscular Hemoglobin Concent 32.6 g/dl (32-36) Platelet Count 390 K/uL (130-400) Mean Platelet Volume 11.2 fL (7.4-10.4) RDW Standard Deviation 65.6 fL (36.4-46.3) RDW Coefficient of Variation 19.6 % (11.5-14.5) Prothrombin Time 33.7 SECONDS (9.0-12.0) Prothromb Time International Ratio 3.3 (0.9-1.1) Activated Partial Thromboplast Time 33.7 SECONDS (21.0-31.0) Partial Thromboplastin Ratio 1.3 Anion Gap 5.0 mmol/L (3-11) Est Creatinine Clear Calc Drug Dose 84.4 ml/min Estimated GFR () 84.6 Estimated GFR (Non- 73.0 BUN/Creatinine Ratio 7.3 (10-20) Calcium Level 8.6 mg/dl (8.5-10.1) Magnesium Level mg/dl (1.8-2.4) Total Bilirubin 0.6 mg/dl (0.2-1) Direct Bilirubin mg/dl (0-0.2) Aspartate Amino Transf (AST/SGOT) U/L (15-37) Alanine Aminotransferase (ALT/SGPT) 71 U/L (12-78) Alkaline Phosphatase 194 U/L (45-117) Total Creatine Kinase U/L (26-192) Creatine Kinase MB < 1.0 ng/ml (0.5-3.6) Creatine Kinase MB Ratio (0-3.0) Troponin I < 0.015 ng/ml (0-0.045) Total Protein 7.1 gm/dl (6.4-8.2) Albumin 3.1 gm/dl (3.4-5.0) Lipase 99 U/L (73-393) Thyroid Stimulating Hormone (TSH) 2.040 uIu/ml (0.300-4.500) Laboratory results as stated above per my review. Medications Administered Medications (Trade) Dose Ordered Sig/Pat Route Start Time Stop Time Status Last Admin Dose Admin Sodium Chloride 1,000 ml @ 999 mls/hr Q1H1M STAT IV 02/06/18 20:23 02/06/18 21:23 DC 02/06/18 21:01 999 MLS/HR Morphine Sulfate (MoRPHine SULFATE INJ) 4 mg Q1H PRN IV 02/06/18 20:30 02/20/18 20:29 02/06/18 22:14 4 MG Ondansetron HCl (Zofran Inj) 4 mg NOW STAT IV 02/06/18 21:03 02/06/18 21:04 DC 02/06/18 21:05 4 MG Ceftriaxone Sodium (Rocephin Inj) 1 gm NOW STAT IV 02/06/18 22:41 02/06/18 22:43 DC 02/06/18 23:06 1 GM ECG Per My Interpretation Indication: nausea Rate (beats per minute): 56 Rhythm: sinus bradycardia Findings: no ectopy, other (No ST elevation ) ED Course 2017: Previous medical records were reviewed. The patient was evaluated in room A12. A complete history and physical examination was performed. 2022: Sodium Chloride 1000 ml @ 999mls/hr IV 2030: Morphine Sulfate 4mg IV 3: Zofran 4mg IV 5:On reevaluation, the patient is resting in bed. I discussed the results and findings with the patient. She verbalized agreement of the treatment plan. She was discharged home. Medical Decision Differential includes acute coronary syndrome, myocardial infarction, CVA, TIA, anemia, infection, pneumonia, UTI, pyelonephritis, poor nutrition, dehydration, electrolyte disturbance,hypoglycemia. This is a 53-year-old female who presents to the ED with a chief complaint of abnormal labs. The patient's INR was elevated yesterday. She has history of PE. She also reported some additional Complaints as noted above. The patient states that she gets some nausea with oral intake. She vomited a couple of times. Denies any blood in her vomitus. She states that she felt like there was a little blood in her urine on Saturday. She reported some lightheadedness, dizziness and headaches. Her vital signs are normal. Her physical exam was relatively unremarkable. Neuro exam was normal. EKG shows sinus bradycardia at a rate of 56. Chest x-ray was negative for acute disease. CT scan of the brain was negative for acute disease. Metabolic panel was unremarkable. INR is 3.3. Glucose is 66. Troponin was negative and a TSH was normal. Urine is suggestive of a UTI. The patient was treated with IV Rocephin and IV Zofran was given for nausea. She was given some IV fluids. She was also given some IV morphine for pain. She was felt to be stable for discharge. Prescription for Levaquin given. Medication Reconcilliation Current Medication List: was personally reviewed by me Blood Pressure Screening Patient's blood pressure: Elevated blood pressure Blood pressure disposition: Elevated BP felt to be situational Impression Primary Impression: UTI (urinary tract infection) Additional Impressions: Nausea Headache Scribe Attestation The scribe's documentation has been prepared under my direction and personally reviewed by me in its entirety. I confirm that the note above accurately reflects all work, treatment, procedures, and medical decision making performed by me. Departure Information Dispostion Home / Self-Care Prescriptions Levofloxacin (Levaquin) 500 Mg Tab 500 MG PO DAILY for 7 Days, #7 TAB Prov: Ruebn Jarvis D.O. 02/06/18 Referrals No Doctor, Assigned (PCP) Patient Instructions [facility] Problem Qualifiers
[2018-02-06] MEDS ORDERED: ZLF/100 PO (23:37)
[2018-02-06] MEDS ORDERED: ONDA4TAB46 PO (23:39)
[2018-02-06] MEDS ORDERED: VITB2100 PO (23:39)
[2018-02-06] MEDS ORDERED: MAGN500T22 PO (23:39)
[2018-02-06] MEDS ORDERED: CYNI1000 IM (23:43)
[2018-02-06] MEDS ORDERED: COEN150C PO (23:43)
[2018-02-06] MEDS ORDERED: MULT-506 PO (23:43)
[2018-02-06 23:59] VITALS: BP 121/71; PULSE 72; O2SAT 99
[2018-02-07 00:09] LABS: POTASSIUM 3.6 mmol/L (3.5-5.1)
[2018-02-07 00:18] LABS: BASO % 0.5 %; BASO ABS # 0.06 K/uL (0-0.2); EOS % 1.3 %; EOS ABS # 0.15 K/uL (0-0.5); IG# 0.04 K/uL (0.00-0.02); LYMPH % 45.3 %; LYMPH ABS # 5.39 K/uL (1.2-3.4); MONO % 11.2 %; MONO ABS # 1.33 K/uL (0.11-0.59); NEUT % 41.4 %; NEUT ABS # 4.92 K/uL (1.4-6.5)
== END 2018-02-06 23:59 | disposition home or self-care (01) ==
LOC: C.EDB 19:43 → C.EDA 23:59
DX: N39.0 Urinary tract infection, site not specified (principal); M54.9 Dorsalgia, unspecified; R51 Headache; R94.31 Abnormal electrocardiogram [ECG] [EKG]; R00.1 Bradycardia, unspecified; R03.0 Elevated blood-pressure reading, without diagnosis of hypertension; R42 Dizziness and giddiness; R10.9 Unspecified abdominal pain; F32.9 Major depressive disorder, single episode, unspecified; Z86.711 Personal history of pulmonary embolism; Z79.01 Long term (current) use of anticoagulants; Z79.899 Other long term (current) drug therapy; Z88.2 Allergy status to sulfonamides; Z91.040 Latex allergy status; Z72.0 Tobacco use

== ENCOUNTER 2019-10-25 15:18 | Inpatient (IN) ==
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
[2019-10-25] MEDS ORDERED: SODIUM CHLORIDE 0.9% 1000ML 1,000 ML IV SCH (16:00)
[2019-10-25 16:35] LABS: Basophils # (auto) 0.07 K/uL (0-0.2); Basophils % (auto) 0.8 %; Eosinophils # (auto) 0.14 K/uL (0-0.5); Eosinophils % (auto) 1.7 %; Hemoglobin 15.4 g/dL (12.0-16.0); Immature Granulocytes # (auto) 0.02 K/uL (0.00-0.02); Immature Granulocytes % (auto) 0.2 %; Lymphocytes # (auto) 3.94 K/uL (1.2-3.4); Lymphocytes % (auto) 47.8 %; Mean Corpuscular Hemoglobin 31.3 pg (25-34); Mean Corpuscular Hgb Conc 33.5 g/dL (32-36); Mean Corpuscular Volume 93.5 fL (80-100); Mean Platelet Volume 11.2 fL (7.4-10.4); Monocytes # (auto) 0.94 K/uL (0.11-0.59); Monocytes % (auto) 11.4 %; Neutrophils # (auto) 3.14 K/uL (1.4-6.5); Neutrophils % (auto) 38.1 %; Platelet Count 309 K/uL (130-400); RDW Coefficient of Variation 15.4 % (11.5-14.5); RDW Standard Deviation 52.9 fL (36.4-46.3); Red Blood Count 4.92 M/uL (4.2-5.4); White Blood Count 8.25 K/uL (4.8-10.8)
[2019-10-25 16:53] LABS: D Dimer 470 ug/L FEU (0-500); INR 1.2 (0.9-1.1); Partial Thromboplastin Ratio 0.9; Partial Thromboplastin Time 26.2 Seconds (21.0-31.0); Prothrombin Time 12.9 Seconds (9.0-12.0)
[2019-10-25 16:57] LABS: Alanine Aminotransferase 102 U/L (12-78); Albumin Level 3.3 gm/dl (3.4-5.0); Aspartate Aminotransferase 84 U/L (15-37); BUN Creatinine Ratio 14.5 (10-20); Blood Urea Nitrogen 12 mg/dl (7-18); Calcium 8.2 mg/dl (8.5-10.1); Carbon Dioxide 27 mmol/L (21-32); Chloride 109 mmol/L (98-107); Est GFR (African American) 87.5; Est GFR (Non-African American) 75.5; Glucose 79 mg/dl (70-99); Lipase 345 U/L (73-393); Potassium 4.2 mmol/L (3.5-5.1); Sodium 142 mmol/L (136-145)
[2019-10-25 17:02] LABS: Albumin Globulin Ratio 0.8 (0.9-2); Alkaline Phosphatase 137 U/L (45-117); Bilirubin,Total 0.3 mg/dl (0.2-1); Globulin 3.9 gm/dl (2.5-4.0); Total Protein 7.2 gm/dl (6.4-8.2); Troponin I < 0.015 ng/ml (0-0.045)
[2019-10-25] MEDS ORDERED: ATROPINE SULFATE 0.1 MG/ML 10ML SYR IV STA ×2 (17:12→17:17)
[2019-10-25] MEDS ORDERED: ATROPINE SULFATE 0.1 MG/ML 10ML SYR IV ONE (17:13)
--- NOTE | 2019-10-25 17:21 | XRay Report ---
XR chest 1V portable HISTORY: Dyspnea COMPARISON: Chest 04/29/2018. FINDINGS: The heart is normal in size. The right lung is clear. Mild elevation the right hemidiaphrag m, unchanged. No pleural effusions. No pneumothorax. No evidence for pulmonary edema. There is a left basilar airspace opacity. IMPRESSION: Left basilar airspace opacity. This likely represents a pneumonia. Recommend follow-up to resolution. ACT 112: Negative or not required by law. Electronically signed by: Vega De Dios M.D. 10/25/2019 5:20 PM
[2019-10-25] MEDS ORDERED: SODIUM CHLORIDE 0.9% 1000ML 1,000 ML IV ONE (17:22)
[2019-10-25] MEDS ORDERED: PIPERACILL/TAZOBAC CONSULT ACTIVE PRN ×2 (17:22→18:18)
[2019-10-25] MEDS ORDERED: PIPERACILLIN/TAZOBACTAM 4.5 GM/120 ML BAG IV ONE (17:22)
[2019-10-25 17:28] LABS: Magnesium 1.9 mg/dl (1.8-2.4)
[2019-10-25 17:31] LABS: Adenovirus PCR Not Detected (NotDetected); Bordetella parapertussis PCR Not Detected (NotDetected); Bordetella pertussis PCR Not Detected (NotDetected); Chlamydia pneumoniae PCR Not Detected (NotDetected); Coronavirus 229E PCR Not Detected (NotDetected); Coronavirus HKU1 PCR Not Detected (NotDetected); Coronavirus NL63 PCR Not Detected (NotDetected); Coronavirus OC43PCR Not Detected (NotDetected); Human Metapneumovirus PCR Not Detected (NotDetected); Influenza A PCR Not Detected (NotDetected); Influenza B PCR Not Detected (NotDetected); Mycoplasma pneumoniae PCR Not Detected (NotDetected); Parainfluenza Virus 1 PCR Not Detected (NotDetected); Parainfluenza Virus 2 PCR Not Detected (NotDetected); Parainfluenza Virus 3 PCR Not Detected (NotDetected); Parainfluenza Virus 4 PCR Not Detected (NotDetected); Respiratory Syncytial VirusPCR Not Detected (NotDetected); Rhinovirus/Enterovirus PCR Not Detected (NotDetected)
[2019-10-25] MEDS ORDERED: ACETAMINOPHEN 325 MG TAB PO PRN (18:17)
[2019-10-25] MEDS ORDERED: ONDANSETRON INJ 2 MG/ML 2 ML VIAL IV PRN (18:17)
--- NOTE | 2019-10-25 18:25 | Hospitalist Progress Note ---
Date of Service October 25, 2019 Assessment & Plan (1) Chest pain: Chest Pain, Shortness of Breath, Generalized Weakness, chronic bradycardia Possible Pneumonia Rule Out COVID-19 History of Pulmonary embolism in the past -This is a 54 year old Female patient who presents with a consternation of symptoms of chest pressure or chest discomforts that began several days ago that progressed to chest pain and then associated with shortness of breath and weakness. She reports that these symptoms prevent her from housecleaning activities. She denies fevers at home. 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 She does not have changes in urination. Has History of migraine headaches. Patient denies other symptoms -Patient has history of pulmonary embolism 5 years ago and took herself off coumadin around 2 weeks ago. Admission D-dimer is negative as 470. No hypoxia on admission -On admission, chest X ray with Left basilar airspace opacity which radiologist interpretation as likely represents a pneumonia. Empirically started on Zosyn by ED provider. hospitalist ordered procalcitonin, sputum cultures, blood cultures, and urine analysis. continue Zosyn for now. also add doxycycline -Patient in review of previous vital signs from previous presentations to [facility] has chronic bradycardia and have been noted in the past to mid 40s. Although she did not have any acute changes to her mental status, the emergency doctor reported that the heart rates in the ED dipped to the 30s, so ED physician gave atropine for sinus bardycardia -EKGs continue to show sinus bradycardia. when seen by hospitalist, it was in the 50s. No apparent conduction delays. will monitor on telemetry. patient reports of untreated Tick bite 1 year ago. Obtain lyme titers and peripheral smear to check for anaplasmosis. start empiric doxycycline -trend troponins, obtain echocardiogram -PT/OT evaluations for the generalized weakness assessments -because of atypical combination of symptoms and patient family member in healthcare center, test for COVID-19, patient will be on airborne and contact isolation precautions History of Gastric bypass History of B12 Deficiency -Patient has history of of gastric bypass over 10 years ago. She has not been getting B12 supplementations for a long time -check B12 levels, check folic acid levels -give thiamine History of Migraine Headaches -takes Tizanidine at home, can continue History of Depression and Anxiety -patient reports she is no longer taking antidepressants or anxiolytic. DVT prophylaxis: Lovenox subcutaneous FULL CODE Subjective This is a 54 year old Female patient who presents with a consternation of symptoms of chest pressure or chest discomforts that began several days ago that progressed to chest pain and then associated with shortness of breath and weakness. She reports that these symptoms prevent her from housecleaning activities. She denies fevers at home. 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 She does not have changes in urination. Has History of migraine headaches. Patient denies other symptoms -Patient has history of pulmonary embolism 5 years ago and took herself off coumadin around 2 weeks ago. Admission D-dimer is negative as 470. No hypoxia on admissiom -On admission, chest X ray with Left basilar airspace opacity which radiologist interpretation as likely represents a pneumonia. Empirically started on Zosyn by ED provider. Patient in review of previous vital signs from previous presentations to [facility] has chronic bradycardia and have been noted in the past to mid 40s. Although she did not have any acute changes to her mental status, the emergency doctor reported that the heart rates in the ED dipped to the 30s, so ED physician gave atropine for sinus bardycardia Review of Systems Review of Systems: All systems reviewed & are unremarkable except as noted in Subjective Physical Exam Constitutional: comfortable Eyes: PERRL, conjunctivae normal, anicteric sclerae EOM intact bilaterally ENMT: external ear and nose normal, oropharynx normal Neck: normal visual inspection Respiratory: normal respiratory effort Cardiovascular: Rate/Rhythm: regular rhythm and + bradycardic Gastrointestinal (Abdomen): normal bowel sounds, soft, nontender, no hepatosplenomegaly Musculoskeletal: Head/Neck/Chest: normocephalic Neurologic: PERRL, EOMI, accommodation nl, no face palsy, no dysarthria Psychiatric: A+Ox3, euthymic affect Results & Data Results & Data ([facility]) Vital Signs (Past 12 Hours) Vital Signs Temp Pulse Pulse Resp BP BP Pulse Ox 10/25/19 17:11 50 L 16 96/58 L 99 10/25/19 16:28 98 10/25/19 16:27 98 10/25/19 16:20 45 L 19 10/25/19 16:16 43 L 5 L 82/51 L 10/25/19 16:10 45 L 20 10/25/19 16:06 45 L 14 10/25/19 15:25 36.7 C 53 L 16 102/59 L 97 (1) Chest pain Chest pain type: unspecified Qualified Code(s): R07.9 - Chest pain, unspecified
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
[2019-10-25] MEDS ORDERED: TIZANIDINE HCL 4 MG TABLET PO SCH (20:00)
[2019-10-25] MEDS ORDERED: ENOXAPARIN INJ 40 MG/0.4 ML SYR SQ SCH (20:00)
[2019-10-25] MEDS ORDERED: PATIENT'S WEIGHT NEEDED SCH (21:00)
[2019-10-25 21:24] LABS: Procalcitonin < 0.05 ng/ml (0-0.5)
[2019-10-25] MEDS ORDERED: DOXYCYCLINE HYCLATE 100 MG in DEXTROSE 5% 100 ML IV SCH (21:30)
[2019-10-25 21:34] LABS: Lyme Ab IgG w/WB Rflx Negative (Negative); Lyme Ab IgM w/WB Rflx Negative (Negative)
[2019-10-25] MEDS: DOXYCYCLINE HYCLATE 100 MG in DEXTROSE 5% 100 ML IV SCH (21:35)
[2019-10-25] MEDS: THIAMINE HCL 50 MG TABLET PO SCH (21:38)
[2019-10-25] MEDS ORDERED: TRAZODONE HCL 50 MG TAB PO PRN (22:18)
[2019-10-25] MEDS: NICOTINE 7 MG/24 HR TDSY TD SCH (23:02)
[2019-10-26] MEDS: PIPERACILLIN/TAZOBACTAM 3.375 GM in DEXTROSE 5% 100 ML/100 ML BAG IV SCH ×2 (01:19→07:20)
[2019-10-26 01:47] LABS: Appearance Urine Clear (Clear); Bilirubin Urine Negative (Negative); Blood Urine Negative (Negative); Color Urine Yellow; Glucose Urine UA Negative (Negative); Ketones Urine Negative (Negative); Leukocyte Esterase Urine Negative (Negative); Nitrite Urine Negative (Negative); Protein Urine Negative (Negative); Specific Gravity Urine 1.011 (1.000-1.030); Urobilinogen Urine Negative (Negative)
[2019-10-26 02:14] LABS: C Reactive Protein < 0.29 mg/dl (0-0.29); Troponin I < 0.015 ng/ml (0-0.045)
[2019-10-26] MEDS: ALPRAZolam 0.5 MG TABLET PO PRN ×2 (02:23→12:19)
[2019-10-26 02:24] LABS: Folate (Folic Acid) 7.5 ng/ml (>5.38)
[2019-10-26] MEDS: THIAMINE HCL 50 MG TABLET PO SCH (07:20)
[2019-10-26] MEDS: NICOTINE 7 MG/24 HR TDSY TD SCH (07:21)
[2019-10-26] MEDS: DOXYCYCLINE HYCLATE 100 MG in DEXTROSE 5% 100 ML IV SCH (07:21)
[2019-10-26 07:32] LABS: Alanine Aminotransferase 80 U/L (12-78); Albumin Level 3.2 gm/dl (3.4-5.0); Aspartate Aminotransferase 52 U/L (15-37); BUN Creatinine Ratio 12.9 (10-20); Blood Urea Nitrogen 10 mg/dl (7-18); Calcium 8.3 mg/dl (8.5-10.1); Carbon Dioxide 23 mmol/L (21-32); Chloride 114 mmol/L (98-107); Creatinine Clr Calc Pharmacy 95.8 ml/min; Est GFR (African American) 103.3; Est GFR (Non-African American) 89.1; Glucose 75 mg/dl (70-99); Potassium 4.2 mmol/L (3.5-5.1); Sodium 144 mmol/L (136-145)
[2019-10-26 07:35] LABS: Albumin Globulin Ratio 0.9 (0.9-2); Alkaline Phosphatase 123 U/L (45-117); Bilirubin,Total 0.5 mg/dl (0.2-1); Globulin 3.4 gm/dl (2.5-4.0); Total Protein 6.6 gm/dl (6.4-8.2); Troponin I < 0.015 ng/ml (0-0.045)
[2019-10-26 08:35] VITALS: PULSE 55
--- NOTE | 2019-10-26 08:56 | Electrocardiogram Report ---
Test Reason : Blood Pressure : / mmHG Vent. Rate : 055 BPM Atrial Rate : 055 BPM P-R Int : 158 ms QRS Dur : 092 ms QT Int : 466 ms P-R-T Axes : 045 004 046 degrees QTc Int : 445 ms Sinus bradycardia Otherwise normal ECG When compared with ECG of 25-OCT-2019 16:15, HR has increased by 11 bpm Otherwise no significant change Confirmed by Kristian Morfin ([id number]) on 10/26/2019 8:56:26 AM Referred By: REFERRED SELF Confirmed By:Kristian Morfin
--- NOTE | 2019-10-26 08:56 | Electrocardiogram Report ---
Test Reason : Blood Pressure : / mmHG Vent. Rate : 044 BPM Atrial Rate : 044 BPM P-R Int : 166 ms QRS Dur : 088 ms QT Int : 492 ms P-R-T Axes : 051 004 050 degrees QTc Int : 420 ms Marked sinus bradycardia Abnormal ECG When compared with ECG of 29-JUL-2019 15:48, Criteria for Septal infarct are no longer Present HR has decreased by 13 bpm Confirmed by Kristian Morfin ([id number]) on 10/26/2019 8:55:56 AM Referred By: REFERRED SELF Confirmed By:Kristian Morfin
[2019-10-26] MEDS ORDERED: RIZATRIPTAN BENZOATE 10 MG TAB PO PRN (12:04)
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
[2019-10-26 15:20] VITALS: BP 105/68; TEMP 98.4; O2SAT 95
--- NOTE | 2019-10-26 16:03 | Hospitalist Progress Note ---
Date of Service October 26, 2019 Assessment & Plan (1) Chest pain: Chest Pain, Shortness of Breath, Generalized Weakness, chronic bradycardia -This is a 54 year old Female patient who presents with a consternation of symptoms of chest pressure or chest discomforts that began several days ago that progressed to chest pain and then associated with shortness of breath and weakness. She reports that these symptoms prevent her from housecleaning activities. She denies fevers at home. 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 She does not have changes in urination. Has History of migraine headaches. Patient denies other symptoms -because of atypical combination of symptoms and patient family member in healthcare center, test for COVID-19 was completed and test is negative so bailey ent was not exposed -other multiple etiologies worked up or ruled out as below Possible left lower lobe pneumonia versus lung damage from previous history of pulmonary embolism -Patient has history of pulmonary embolism 5 years ago and took herself off coumadin around 2 weeks ago. Admission D-dimer is negative as 470. No hypoxia on admission. On admission, chest X ray with Left basilar airspace opacity which radiologist interpretation as likely represents a pneumonia. Empirically started on Zosyn by ED provider. hospitalist ordered procalcitonin, sputum cultures, blood cultures, and urine analysis is negative, and continued Zosyn. also added doxycycline. Patient's procalcitonin returned as negative. cultures negative to date. Patient later reported that she had history of left lower lung infiltrates after her history of pulmonary embolism. Patient declined CTA chest in the hospital. as of 10/26/2019 blood cultures with no growth to date, patient agrees to continue respiratory antibiotics as amoxicillin clavulanate (875/125 mg) twice a day and doxycycline 100 mg twice a day for 7 days and follow up with primary care doctor. Patient will have CD of hospital imaging including admission Chest X ray to take to family doctor to see if left lower lung opacity are chronic from history of pulmonary embolism in the past Patient should discuss with primary care doctor whether any future needs for coumadin anticoagulation Patient has upcoming primary care doctor appointment with: 10/29/2019 10:40 AM Provider Jessee Wisdom MD Department Family Practice [facility] on [address], [place] [id number]. -alternatively, patient noted more strenuous activities with home remodeling so perhaps her symptoms of chest discomforts and shortness of breath are from environmental exposure, from irritation of face masks, or overexertion Chronic Bradycardia -Patient in review of previous vital signs from previous presentations to [facility] has chronic bradycardia and have been noted in the past to mid 40s. Although she did not have any acute changes to her mental status, the emergency doctor reported that the heart rates in the ED dipped to the 30s, so ED physician gave atropine for sinus bardycardia -EKGs continue to show sinus bradycardia. when seen by hospitalist, it was in the 50s. No apparent conduction delays. will monitor on telemetry. patient reports of untreated Tick bite 1 year ago. was started empirically on doxycycline. Lyme titers and peripheral smear ruled out lyme disease or anaplasmosis. -troponins negative x 3 -echocardiogram reported to be normal by cardiology Dr. Ann on 10/26/2019. Patient deferred further hospital testing -10 day trial of Prilosec in case chest discomforts are from gastric reflux. History of Gastric bypass History of B12 Deficiency -Patient has history of of gastric bypass over 10 years ago. She has not been getting B12 supplementations for a long time. B12 levels normal as 440, folic acid levels normal as 7.5, was given thiamine empirically until these results returned -10 day trial of Prilosec on discharge History of Gastric bypass History of B12 Deficiency -Patient has history of of gastric bypass over 10 years ago. She has not been getting B12 supplementations for a long time. B12 levels normal as 440, folic acid levels normal as 7.5, was given thiamine empirically until these results returned -10 day trial of Prilosec on discharge History of Migraine Headaches -takes Tizanidine at home, can continue History of Depression and Anxiety -patient reports generally she is no longer taking antidepressants or anxiolytic. Admission and Anticipated Discharge Date Admission Date: October 25, 2019 Subjective breathing on room air. no chest pain. no palpitations. no abdomen pain. no vomiting. no fevers. no headache. no dizziness. Patient wishes to go home to take care of family member with special needs. We discussed at length of multiple etiologies that was worked up in regards to initial symptoms. We discussed at length about hospital discharge plans and followups Review of Systems Review of Systems: All systems reviewed & are unremarkable except as noted in Subjective Physical Exam Constitutional: comfortable Eyes: PERRL, conjunctivae normal, anicteric sclerae EOM intact bilaterally ENMT: external ear and nose normal, oropharynx normal Neck: normal visual inspection Respiratory: normal respiratory effort Cardiovascular: Rate/Rhythm: regular rhythm and + bradycardic Gastrointestinal (Abdomen): normal bowel sounds, soft, nontender, no hepatosplenomegaly Musculoskeletal: Head/Neck/Chest: normocephalic Neurologic: PERRL, EOMI, accommodation nl, no face palsy, no dysarthria Psychiatric: A+Ox3, euthymic affect Results & Data Results & Data ([facility]) Vital Signs (Past 12 Hours) Vital Signs Temp Pulse Pulse Resp BP Pulse Ox 10/26/19 15:19 36.9 C 55 L 18 105/68 95 10/26/19 12:00 36.7 C 55 L 18 107/66 96 10/26/19 08:00 55 L 10/26/19 07:18 36.7 C 60 19 93/60 L 98 10/26/19 05:09 36.9 C 53 L 14 87/51 L 97 (1) Chest pain Chest pain type: unspecified Qualified Code(s): R07.9 - Chest pain, unspecified
--- NOTE | 2019-10-26 16:36 | Discharge Summary ---
Date of Service October 26, 2019 Admission HPI Per Admitting Provider This is a 54 year old Female patient who presents with a consternation of symptoms of chest pressure or chest discomforts that began several days ago that progressed to chest pain and then associated with shortness of breath and weakness. She reports that these symptoms prevent her from housecleaning activities. She denies fevers at home. 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 She does not have changes in urination. Has History of migraine headaches. Patient denies other symptoms -Patient has history of pulmonary embolism 5 years ago and took herself off coumadin around 2 weeks ago. Admission D-dimer is negative as 470. No hypoxia on admissiom -On admission, chest X ray with Left basilar airspace opacity which radiologist interpretation as likely represents a pneumonia. Empirically started on Zosyn by ED provider. Patient in review of previous vital signs from previous presentations to [facility] has chronic bradycardia and have been noted in the past to mid 40s. Although she did not have any acute changes to her mental status, the emergency doctor reported that the heart rates in the ED dipped to the 30s, so ED physician gave atropine for sinus bardycardia Family History: Father had pacemaker placed in the age of 70s Principal Diagnosis Chest Pain, Shortness of Breath, Generalized Weakness, chronic bradycardia Possible left lower lobe pneumonia versus lung damage from previous history of pulmonary embolism History of Gastric bypass Discharge Exam Constitutional comfortable Eyes PERRL, conjunctivae normal, anicteric sclerae EOM intact bilaterally ENMT external ear and nose normal, oropharynx normal Neck normal visual inspection Respiratory normal respiratory effort Cardiovascular Rate/Rhythm: regular rhythm and + bradycardic Gastrointestinal (Abdomen) normal bowel sounds, soft, nontender, no hepatosplenomegaly Musculoskeletal Head/Neck/Chest: normocephalic Neurologic PERRL, EOMI, accommodation nl, no face palsy, no dysarthria Psychiatric A+Ox3, euthymic affect Discharge Data Allergies Allergy/AdvReac Type Severity Reaction Status Date / Time Sulfa (Sulfonamide Allergy Intermediate Hives Verified 10/25/19 17:37 Antibiotics) latex Allergy Mild Rash Verified 10/25/19 17:37 Consultations 10/25/19 17:23 ED Decision to Admit Stat 10/25/19 18:11 Consult Case Management - Discharge Planning Routine 10/26/19 08:41 Consult Cardiology Routine 10/26/19 16:07 Burn CD for patient Stat Hospital Course (1) Chest pain: Chest Pain, Shortness of Breath, Generalized Weakness, chronic bradycardia -This is a 54 year old Female patient who presents with a consternation of symptoms of chest pressure or chest discomforts that began several days ago that progressed to chest pain and then associated with shortness of breath and weakness. She reports that these symptoms prevent her from housecleaning activities. She denies fevers at home. 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 She does not have changes in urination. Has History of migraine headaches. Patient denies other symptoms -because of atypical combination of symptoms and patient family member in healthcare center, test for COVID-19 was completed and test is negative so patient was not exposed -other multiple etiologies worked up or ruled out as below Possible left lower lobe pneumonia versus lung damage from previous history of pulmonary embolism -Patient has history of pulmonary embolism 5 years ago and took herself off coumadin around 2 weeks ago. Admission D-dimer is negative as 470. No hypoxia on admission. On admission, chest X ray with Left basilar airspace opacity which radiologist interpretation as likely represents a pneumonia. Empirically started on Zosyn by ED provider. hospitalist ordered procalcitonin, sputum cultures, blood cultures, and urine analysis is negative, and continued Zosyn. also added doxycycline. Patient's procalcitonin returned as negative. cultures negative to date. Patient later reported that she had history of left lower lung infiltrates after her history of pulmonary embolism. Patient declined CTA chest in the hospital. as of 10/26/2019 blood cultures with no growth to date, patient agrees to continue respiratory antibiotics as amoxicillin clavulanate (875/125 mg) twice a day and doxycycline 100 mg twice a day for 7 days and follow up with primary care doctor. Patient will have CD of hospital imaging including admission Chest X ray to take to family doctor to see if left lower lung opacity are chronic from history of pulmonary embolism in the past Patient should discuss with primary care doctor whether any future needs for coumadin anticoagulation Patient has upcoming primary care doctor appointment with: 10/29/2019 10:40 AM Provider Jessee Wisdom MD Department Family Practice [facility] on [address], [place] [address]. -alternatively, patient noted more strenuous activities with home remodeling so perhaps her symptoms of chest discomforts and shortness of breath are from environmental exposure, from irritation of face masks, or overexertion Chronic Bradycardia -Patient in review of previous vital signs from previous presentations to [facility] has chronic bradycardia and have been noted in the past to mid 40s. Although she did not have any acute changes to her mental status, the emergency doctor reported that the heart rates in the ED dipped to the 30s, so ED physician gave atropine for sinus bardycardia -EKGs continue to show sinus bradycardia. when seen by hospitalist, it was in the 50s. No apparent conduction delays. will monitor on telemetry. patient reports of untreated Tick bite 1 year ago. was started empirically on doxycycline. Lyme titers and peripheral smear ruled out lyme disease or anaplasmosis. -troponins negative x 3. no conduction delays on telemetry. continues to have asymptomatic sinus bradycardia -echocardiogram reported to be normal by cardiology Dr. Ann on 10/26/2019. Patient deferred further hospital testing -10 day trial of Prilosec in case chest discomforts are from gastric reflux. History of Gastric bypass History of B12 Deficiency -Patient has history of of gastric bypass over 10 years ago. She has not been getting B12 supplementations for a long time. B12 levels normal as 440, folic acid levels normal as 7.5, was given thiamine empirically until these results returned -10 day trial of Prilosec on discharge History of Gastric bypass History of B12 Deficiency -Patient has history of of gastric bypass over 10 years ago. She has not been getting B12 supplementations for a long time. B12 levels normal as 440, folic acid levels normal as 7.5, was given thiamine empirically until these results returned -10 day trial of Prilosec on discharge History of Migraine Headaches -takes Tizanidine at home, can continue History of Depression and Anxiety -patient reports generally she is no longer taking antidepressants or anxiolytic. Total Time Total Time Spent Total Time Spent (In Minutes): 40 minutes Discharge Plan Discharge Items Patient Disposition: Home - Self-Care Reason For Visit: WEAKNESS,CHEST PAIN,SHORTNESS OF BREATH Discharge Diagnosis: Chest Pain, Shortness of Breath, Generalized Weakness, chronic bradycardia Possible left lower lobe pneumonia versus lung damage from previous history of pulmonary embolism History of Gastric bypass Condition on Discharge: Good Activity: Per Instructions section Non-emergency contact: Primary Care Provider Call non-emergency contact if: you have any medication questions Follow-up/Referrals: Jessee Wisdom MD [Primary Care Provider] - Diet: Heart Healthy Addtl Attending Provider Instructions: Chest Pain, Shortness of Breath, Generalized Weakness, chronic bradycardia -This is a 54 year old Female patient who presents with a consternation of symptoms of chest pressure or chest discomforts that began several days ago that progressed to chest pain and then associated with shortness of breath and weakness. She reports that these symptoms prevent her from housecleaning activities. She denies fevers at home. 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 She does not have changes in urination. Has History of migraine headaches. Patient denies other symptoms -because of atypical combination of symptoms and patient family member in healthcare center, test for COVID-19 was completed and test is negative so patient was not exposed -other multiple etiologies worked up or ruled out as below Possible left lower lobe pneumonia versus lung damage from previous history of pulmonary embolism -Patient has history of pulmonary embolism 5 years ago and took herself off coumadin around 2 weeks ago. Admission D-dimer is negative as 470. No hypoxia on admission. On admission, chest X ray with Left basilar airspace opacity which radiologist interpretation as likely represents a pneumonia. Empirically started on Zosyn by ED provider. hospitalist ordered procalcitonin, sputum cultures, blo od cultures, and urine analysis is negative, and continued Zosyn. also added doxycycline. Patient's procalcitonin returned as negative. cultures negative to date. Patient later reported that she had history of left lower lung infiltrates after her history of pulmonary embolism. Patient declined CTA chest in the hospital. as of 10/26/2019 blood cultures with no growth to date, patient agrees to continue respiratory antibiotics as amoxicillin clavulanate (875/125 mg) twice a day and doxycycline 100 mg twice a day for 7 days and follow up with primary care doctor. Patient will have CD of hospital imaging including admission Chest X ray to take to family doctor to see if left lower lung opacity are chronic from history of pulmonary embolism in the past Patient should discuss with primary care doctor whether any future needs for coumadin anticoagulation Patient has upcoming primary care doctor appointment with: 10/29/2019 10:40 AM Provider Jessee Wisdom MD Department Family Practice [facility] on [address], [place] [id number]. -alternatively, patient noted more strenuous activities with home remodeling so perhaps her symptoms of chest discomforts and shortness of breath are from environmental exposure, from irritation of face masks, or overexertion Chronic Bradycardia -Patient in review of previous vital signs from previous presentations to [facility] has chronic bradycardia and have been noted in the past to mid 40s. Although she did not have any acute changes to her mental status, e emergency doctor reported that the heart rates in the ED dipped to the 30s, so ED physician gave atropine for sinus bardycardia -EKGs continue to show sinus bradycardia. when seen by hospitalist, it was in the 50s. No apparent conduction delays. will monitor on telemetry. patient reports of untreated Tick bite 1 year ago. was started empirically on doxycycline. Lyme titers and peripheral smear ruled out lyme disease or anaplasmosis. -troponins negative x 3. no conduction delays on telemetry. continues to have asymptomatic sinus bradycardia -echocardiogram reported to be normal by cardiology Dr. Ann on 10/26/2019. Patient deferred further hospital testing -10 day trial of Prilosec in case chest discomforts are from gastric reflux. History of Gastric bypass History of B12 Deficiency -Patient has history of of gastric bypass over 10 years ago. She has not been getting B12 supplementations for a long time. B12 levels normal as 440, folic acid levels normal as 7.5, was given thiamine empirically until these results returned -10 day trial of Prilosec on discharge Addtl [employer] Provider Instructions: discharge medications sent electronically to [facility] on [address] [facility] of 10 day trial of Prilosec in case chest discomforts are from gastric reflux. amoxicillin clavulanate (875/125 mg) twice a day and doxycycline 100 mg twice a day for 7 days Patient will have CD of hospital imaging including admission Chest X ray to take to family doctor to see if left lower lung opacity are chronic from history of pulmonary embolism in the past Patient should discuss with primary care doctor whether any future needs for coumadin anticoagulation Patient has upcoming primary care doctor appointment with 10/29/2019 10:40 AM Provider Jessee Wisdom MD Department Family Practice [facility] on [address], [place] [id number]. Pending Studies at Discharge: Yes Stand-Alone Forms: My [facility] PSS Systems, Smoking Cessation Medications and DC Order Prescriptions: New Prilosec 10 mg susp,delayed release for recon 20 mg PO DAILY 10 Days Qty: 10 RF: 0 amoxicillin-pot clavulanate [Augmentin] 875-125 mg tablet 1 tab PO BID 7 Days Qty: 14 RF: 0 doxycycline hyclate 100 mg tablet 100 mg PO BID 7 Days Qty: 14 RF: 0 Continued rizatriptan 10 mg Tablet 10 mg PO DIRECTED PRN (Reason: Migraine Headache) RF: 0 trazodone 100 mg Tablet 100 - 200 mg PO HS PRN (Reason: Sleep) RF: 0 zolmitriptan 5 mg spray,non-aerosol 1 spray Intranasal DIRECTED PRN (Reason: Migraine Headache) RF: 0 Aimovig Autoinjector 140 mg/mL auto-injector 140 mg SUBCUT MONTHLY RF: 0 ondansetron HCl 4 mg tablet 4 mg PO Q8H PRN (Reason: Nausea) RF: 0 Discontinued tizanidine 4 mg Tablet 8 mg PO HS RF: 0 hydrocodone-acetaminophen [[place]] 5-325 mg tablet 1 tab PO Q6H PRN (Reason: Pain) RF: 0 Discharge Orders: Discharge Order (Routine); Ordered 10/26/19 Ordered By: William Ramos Admission Data Admit Date/Time: 10/25/19 18:14 Attending Provider: William Ramos Admit Provider: William Ramos Primary Care Provider: Jessee Wisdom Other Providers: William Ramos ; Leonel Ann
== END 2019-10-26 18:13 | disposition home or self-care (01) | DRG 195 ==
LOC: ED 15:18 → 2S 18:14

== ENCOUNTER 2022-05-16 18:48 | Inpatient (IN) ==
[2022-05-16] MEDS ORDERED: SODIUM CHLORIDE 0.9% 1000ML 500 ML IV ONE (19:25)
[2022-05-16] MEDS ORDERED: HYDROmorphone INJ 1 MG/ML SYRINGE IV STA (19:32)
[2022-05-16] MEDS ORDERED: ONDANSETRON INJ 2 MG/ML 2 ML VIAL IV STA (19:32)
[2022-05-16] MEDS ORDERED: HYDROmorphone INJ 0.5 MG/0.5 ML SYR IV PRN (19:32)
[2022-05-16] MEDS ORDERED: ACETAMINOPHEN 1,000 MG/100 ML VIAL IV STA (19:32)
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
[2022-05-16] MEDS ORDERED: diphenhydrAMINE 50 MG/ML VIAL IV STA ×2 (20:35→22:13)
[2022-05-16 21:04] LABS: Basophils # (auto) 0.06 K/uL (0-0.2); Basophils % (auto) 0.4 %; Eosinophils # (auto) 0.01 K/uL (0-0.50); Eosinophils % (auto) 0.1 %; Hematocrit (blood only) 48.9 % (34.1-44.9); Hemoglobin 17.1 g/dl (12.0-16.0); Immature Granulocytes # (auto) 0.04 K/uL (0.00-0.02); Immature Granulocytes % (auto) 0.3 %; Lymphocytes # (auto) 2.58 K/uL (1.2-3.4); Lymphocytes % (auto) 16.5 %; Mean Corpuscular Hemoglobin 29.5 pg (25.0-34.0); Mean Corpuscular Volume 84.3 fL (80.0-100.0); Mean Platelet Volume 10.5 fL (9.4-12.3); Monocytes # (auto) 1.74 K/uL (0.24-0.82); Monocytes % (auto) 11.1 %; Neutrophils # (auto) 11.25 K/uL (1.4-6.5); Neutrophils % (auto) 71.6 %; Platelet Count 371 K/uL (130-400); RDW Coefficient of Variation 19.3 % (11.5-14.5); RDW Standard Deviation 56.5 fL (36.4-46.3); White Blood Count 15.68 K/ul (4.8-10.8)
[2022-05-16 21:32] LABS: Alanine Aminotransferase 89 U/L (7-52); Albumin Globulin Ratio 1.2 (0.9-2); Albumin Level 4.7 gm/dl (3.4-5.0); Alkaline Phosphatase 179 U/L (34-104); Anion Gap 10 (3-11); Aspartate Aminotransferase 73 U/L (13-39); Bilirubin,Total 0.6 mg/dl (0.2-1.0); Blood Urea Nitrogen 12 mg/dl (6-23); Calcium 9.9 mg/dl (8.5-10.1); Carbon Dioxide 28 mmol/L (21-32); Chloride 101 mmol/L (98-107); Est GFR (African American) 93.5 ml/min; Est GFR (Non-African American) 80.7 ml/min; Glucose 81 mg/dl (70-99(Fasting)); Lipase 203 U/L (11-82); Potassium 3.9 mmol/L (3.5-5.1); Sodium 139 mmol/L (136-145); Total Protein 8.7 gm/dl (6.0-8.3); Troponin I High Sensitivity 5.5 pg/ml (0-14)
[2022-05-16] MEDS ORDERED: OPTIRAY 350 100ml IV ONE (22:41)
--- NOTE | 2022-05-16 23:29 | CT Scan Report ---
CT abd pelvis IV con only CLINICAL HISTORY: epig pain, h/o pancreatitis TECHNIQUE: Helical axial images of the abdomen and pelvis were obtained and displayed. Automated dose lowering techniques and/or adjustment according to patient size were utilized for this exam. This e xam was performed with intravenous contrast. CT DOSE: 840.64 mGy.cm COMPARISON: Comparison is made to CT abdomen pelvis 02/03/2020 FINDINGS: Lower chest: No acute abnormality. Liver: Unremarkable. No focal lesions are seen. Gallbladder and biliary tree: Patient is status post cholecystectomy. Physiologic prominence of the b iliary ducts is noted. Pancreas: Calcifications about the pancreatic tail are again noted. Spleen: Patient is status post splenectomy. Adrenals: Stable nodularity of the bilateral adrenal glands. Kidneys and ureters: Unremarkable. Bladder: Unremarkable. Reproductive organs: Patient is status post hysterectomy. Bowel: A hiatal hernia is seen. Postoperative changes are seen about the stomach. The appendix is nor mal. Lymph nodes Retroperitoneal: Unremarkable. Pelvic: Unremarkable. Mesenteric: Unremarkable. Peritoneum: Normal. Vessels: Unremarkable. Abdominal wall: Unremarkable. Bones: Degenerative changes in the visualized spine. IMPRESSION: No acute abnormalities. Postsurgical changes are seen in the left upper quadrant including gastric cam rgery and splenectomy. In particular, no evidence of acute pancreatitis is seen. Changes of chronic p ancreatitis are seen. ACT 112: Negative or not required by law. Electronically signed by: Bereket Rollins M.D. 05/16/2022 11:27 PM
[2022-05-17] MEDS ORDERED: CETIRIZINE HCL 10 MG TABLET PO ONE
[2022-05-17 01:44] LABS: INR 3.1 (0.9-1.1); Partial Thromboplastin Ratio 1.1; Partial Thromboplastin Time 30.1 Seconds (21.0-31.0); Prothrombin Time 30.8 Seconds (9.0-12.0)
--- NOTE | 2022-05-17 02:22 | History and Physical Report ---
DATE OF ADMISSION: 05/17/2022. CHIEF COMPLAINT: Abdominal pain. HISTORY OF PRESENT ILLNESS: This is a 57-year-old female with past medical history significant for recurrent pulmonary emboli on Coumadin, history of gastric bypass surgery for obesity, post-gastric surgery syndrome, history of dysphagia, history of intestinal postoperative non-absorption, constipation, history of gastrocolic fistula, GERD, chronic pain, cervicalgia, chronic abdominal pain, history of chronic migraines, iron deficiency anemia, anxiety, agoraphobia, insomnia, depression, anxiety, presents with abdominal pain. The patient states since the morning, she is having epigastric abdominal pain radiating to the back from the left side, also has some nausea, pain was 7/10 in severity when she came in, currently 5/10, normal bowel movement today 3 times. No blood in the stools. Normal bladder movements. No fever, no chills, no chest pain, no shortness of breath, no headache. She has chronic migraines, but currently has no headache, no blurred visions, no earache, no runny nose, no sore throat, no cough, no fevers. The patient has some itching from Dilaudid and she is asking for Benadryl. ALLERGIES: SULFA ANTIBIOTICS, LATEX, CIPROFLOXACIN, MORPHINE. PAST MEDICAL HISTORY: As mentioned above. PAST SURGICAL HISTORY: Allograft for spine surgery, right arthrodesis, colonoscopy, EGDs, upper GI endoscopy with guidewire dilatation, esophagogastroduodenoscopy, EGD with a transendoscopic dilatation, EGD with stent placement, EGD with endoscopic ultrasound, exploration of abdomen, gastric revision for obesity, lumbar, cervical and thoracic spine injection, and IR drainage of abscess. CT-guided needle aspiration biopsy, cholecystectomy, partial gastrectomy with gastrojejunostomy, splenectomy, thoracocentesis, revision of right ankle joint, anterior instrumentation of 4-7 vertebra, total abdominal hysterectomy with removal of tubes, wedge biopsy of liver. MEDICATIONS: The patient is on Tylenol Extra Strength 500 mg p.o. p.r.n., amitriptyline 25 mg p.o. at bedtime, bupropion 300 mg p.o. daily, calcium carbonate 600 mg p.o. b.i.d., Reglan 5-10 mg p.o. p.r.n. for migraine headache, omeprazole 20 mg p.o. at bedtime, Zofran 4 mg p.o. q. 8 hours p.r.n., MiraLax 17 g p.o. b.i.d., vitamins 1 tablet p.o. daily, tizanidine as directed by Ocuvite 1 tablet p.o. daily, warfarin as directed, zolpidem 6.25 mg p.o. at bedtime p.r.n. FAMILY HISTORY: Significant for father has bradycardia and neded pacemaker, diabetes, hemochromatosis; mother has colon cancer, diabetes, colonic polyps. Uncle with colon cancer. Maternal aunt has colon cancer. Paternal grandmother had colon cancer; maternal grandfather had colon cancer. SOCIAL HISTORY: , former smoker, quit in 01/2020. Smoked half pack a day for 3 years. Alcohol, rarely. No drug use. REVIEW OF SYSTEMS: As per HPI. Rest of review of systems is negative. PHYSICAL EXAMINATION: GENERAL: The patient is of moderate build, not in acute distress. VITAL SIGNS: Temperature 36.6, pulse 67, respiratory rate 18, blood pressure 125/73, oxygen 93% on room air. HEENT: Pupils equal, round and reactive to light. Oral mucosa moist. NECK: No JVD, no neck masses. CARDIOVASCULAR: S1 and S2 heard. Regular rate and rhythm. No murmur, no gallop. RESPIRATORY SYSTEM: Normal AP diameter. No accessory muscle use. No wheezing, no crackles. ABDOMEN: Soft, bowel sounds present. Epigastric tenderness present. Mild guarding. No rigidity. No distention. CENTRAL NERVOUS SYSTEM: Cranial nerves II-XII grossly intact, nonfocal. EXTREMITIES: No edema, no erythema. LABORATORY DATA: WBC 15, hemoglobin 17.1, hematocrit 48.9, platelets 371. Sodium 139, potassium 3.9, chloride 101, bicarb 28, BUN 12, creatinine 0.8, serum glucose 181, calcium 9.9, total bilirubin 0.6, AST 73, ALT 89, alkaline phosphatase 139. Troponin I high sensitivity 5.5. Lipase 203. SARS-CoV-2 rapid test negative. IMAGING DATA: Chest x-ray, no acute findings. CT of abdomen and pelvis with IV contrast, no acute abnormalities. Postsurgical changes are seen in the left upper quadrant including gastric surgery and splenectomy. No evidence of acute pancreatitis seen. EKG: Normal sinus rhythm at a rate of 74, no significant change was found. ASSESSMENT AND PLAN: This is a 57-year-old female with history of pancreatitis, presented with abdominal pain. 1. Abdominal pain, possible acute on chronic pancreatitis. CT of abdomen and pelvis is unremarkable. Lipase is 203. We will keep her n.p.o., IV Ringer 150 mL, IV Dilaudid p.r.n., IV antiemetics p.r.n. Consult GI in the a.m. for further recommendations. Closely monitor. 2. Leukocytosis. We will follow the repeat labs. No obvious infection. Follow the urinalysis. 3. History of recurrent pulmonary emboli on Coumadin. We will follow the PT/INR. 4. History of migraines, currently stable. Continue home medications. 5. Gastroesophageal reflux disease. On omeprazole. 6. Depression, anxiety. On buspirone and bupropion. 7. History of gastric bypass surgery followup with PCP, followup for any vitamin deficiencies. 8. Transaminitis seems to be chronic. We will follow the repeat labs. 9. Deep venous thrombosis prophylaxis: On Coumadin. We will follow PT/INR. DISPOSITION: Closely monitor in the medical floor. PT/OT prior to discharge. Social service to help with discharge planning. Job ID: [id number] [facility]ITALDeb
[2022-05-17] MEDS ORDERED: ONDANSETRON INJ 2 MG/ML 2 ML VIAL IV PRN (02:37)
[2022-05-17] MEDS ORDERED: ACETAMINOPHEN 325 MG TAB PO PRN (02:37)
[2022-05-17] MEDS ORDERED: POLYETHYLENE (MIRALAX) 17 GM PACK PO PRN (02:37)
[2022-05-17] MEDS ORDERED: ENOXAPARIN INJ 40 MG/0.4 ML SYR SQ SCH (02:37)
[2022-05-17] MEDS: LACTATED RINGER'S 1,000 ML IV SCH ×4 (02:51→22:43)
[2022-05-17] MEDS: HYDROmorphone INJ 0.5 MG/0.5 ML SYR IV PRN ×7 (03:53→22:43)
--- NOTE | 2022-05-17 05:36 | XRay Report ---
SINGLE VIEW CHEST CLINICAL HISTORY: Generalized abdominal pain. FINDINGS: An AP, portable, upright chest radiograph is compared to study dated 04/10/2022 and correla celeste with chest CT dated 11/06/2019. The cardiomediastinal silhouette is unremarkable. There is chronic elevation of the right hemidiaphragm with bibasilar atelectasis. The lungs and pleural spaces are ot herwise clear. No pneumothorax is seen. The skeletal structures are osteopenic. The bony thorax is gr ossly intact. Fusion hardware is noted in the lower cervical spine. IMPRESSION: No active disease in the chest. ACT 112: Negative or not required by law. Electronically signed by: Glynn Moreno M.D. 05/17/2022 5:34 AM
[2022-05-17 06:28] LABS: INR 3.1 (0.9-1.1); Prothrombin Time 30.9 Seconds (9.0-12.0)
[2022-05-17 06:55] LABS: Albumin Level 3.9 gm/dl (3.4-5.0); BUN Creatinine Ratio 14.5 (10-20); Bilirubin Direct 0.5 mg/dl (0-0.2); Bilirubin,Total 1.1 mg/dl (0.2-1.0); Creatinine Clr Calc Pharmacy 104.3 ml/min; Est GFR (African American) 110.4 ml/min; Est GFR (Non-African American) 95.3 ml/min; Magnesium 1.9 mg/dl (1.7-2.4); Total Protein 7.2 gm/dl (6.0-8.3)
[2022-05-17] MEDS: diphenhydrAMINE 50 MG/ML VIAL IV PRN ×3 (07:33→19:42)
[2022-05-17 08:43] LABS: Basophils # (auto) 0.05 K/uL (0-0.2); Basophils % (auto) 0.4 %; Eosinophils # (auto) 0.08 K/uL (0-0.50); Eosinophils % (auto) 0.7 %; Hematocrit (blood only) 41.1 % (34.1-44.9); Hemoglobin 14.2 g/dl (12.0-16.0); Immature Granulocytes # (auto) 0.02 K/uL (0.00-0.02); Immature Granulocytes % (auto) 0.2 %; Lymphocytes # (auto) 2.25 K/uL (1.2-3.4); Lymphocytes % (auto) 19.7 %; Mean Corpuscular Hemoglobin 29.2 pg (25.0-34.0); Mean Corpuscular Hgb Conc 34.5 g/dL (32.0-36.0); Mean Corpuscular Volume 84.6 fL (80.0-100.0); Mean Platelet Volume 11.2 fL (9.4-12.3); Monocytes # (auto) 1.79 K/uL (0.24-0.82); Monocytes % (auto) 15.7 %; Neutrophils # (auto) 7.24 K/uL (1.4-6.5); Neutrophils % (auto) 63.3 %; Platelet Count 325 K/uL (130-400); RDW Coefficient of Variation 18.4 % (11.5-14.5); Red Blood Count 4.86 M/uL (3.93-5.22); White Blood Count 11.43 K/ul (4.8-10.8)
[2022-05-17 09:20] LABS: BUN Creatinine Ratio 15.6 (10-20); Calcium 8.9 mg/dl (8.5-10.1); Creatinine Clr Calc Pharmacy 112.5 ml/min; Est GFR (African American) 113.2 ml/min; Est GFR (Non-African American) 97.7 ml/min; Potassium 4.1 mmol/L (3.5-5.1)
[2022-05-17 09:30] LABS: Albumin Globulin Ratio 1.2 (0.9-2); Albumin Level 3.6 gm/dl (3.4-5.0); Globulin 3.1 gm/dl (2.5-4.0); Total Protein 6.7 gm/dl (6.0-8.3)
--- NOTE | 2022-05-17 10:21 | Electrocardiogram Report ---
Test Reason : Blood Pressure : / mmHG Vent. Rate : 074 BPM Atrial Rate : 074 BPM P-R Int : 164 ms QRS Dur : 088 ms QT Int : 418 ms P-R-T Axes : 051 -12 034 degrees QTc Int : 463 ms Poor data quality, interpretation may be adversely affected Normal sinus rhythm Left atrial enlargement Nonspecific T wave abnormality Anteroseptal leads Abnormal ECG When compared with ECG of 10-APR-2022 10:55, Nonspecific T wave abnormality Anteroseptal leads more pronounced Confirmed by Kristian Morfin ([id number]) on 05/17/2022 10:20:37 AM Referred By: REFERRED SELF Confirmed By:Kristian Morfin
--- NOTE | 2022-05-17 10:46 | Ultrasound Report ---
ULTRASOUND RIGHT UPPER QUADRANT ABDOMEN CLINICAL HISTORY: Elevated hepatic transaminases. COMPARISON STUDY: Abdominal CT dated 05/16/2022. TECHNIQUE: Real-time, grayscale, and color flow sonography of the right upper quadrant of the abdomen was performed. Images are reviewed in the transverse and longitudinal planes. FINDINGS: Liver: The liver is normal in size and echotexture. There is no intrahepatic biliary ductal dilatatio n. The main portal vein is patent. A 1.9 cm well-circumscribed echogenic right lobe liver lesion is u nchanged from prior studies and is typical for a hemangioma. Gallbladder: The gallbladder is surgically absent. The common bile duct measures up to 0.3 cm in diam eter. Pancreas: Not visualized due to overlying bowel gas. Right kidney: Survey images of the right kidney demonstrate normal size and echotexture. There is no hydronephrosis. Ascites: None. IMPRESSION: 1. No acute sonographic abnormality is seen in the right upper quadrant noting status post cholecyste ctomy. 2. Nonvisualization of the pancreas. ACT 112: Negative or not required by law. Electronically signed by: Glynn Moreno M.D. 05/17/2022 10:45 AM
[2022-05-17] MEDS: buPROPion XL 300 MG TABCR PO SCH (10:58)
[2022-05-17] MEDS: CEROVITE ADV FORMULA TAB PO SCH (10:59)
[2022-05-17] MEDS: CALCIUM 600MG + VIT D 400 IU TAB PO SCH ×2 (10:59→20:36)
[2022-05-17] MEDS: PRENATAL VITAMIN 1 TAB PO SCH (10:59)
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
[2022-05-17] MEDS: POLYETHYLENE (MIRALAX) 17 GM PACK PO SCH ×2 (12:48→20:32)
--- NOTE | 2022-05-17 13:11 | Hospitalist Progress Note ---
Date of Service May 17, 2022 Assessment & Plan Admission and Anticipated Discharge Date Admission Date: May 17, 2022 Subjective Patient admitted overnight with epigastric pain and left upper quadrant pain. At that time believed to be secondary to pancreatitis. CT abdomen obtained in the ED unremarkable. Today patient is lying in bed, in no acute distress, however continues to complain of abdominal pain. No fevers or chills, no chest pain or shortness of breath. Denies any blood in the stool. Denies nausea vomiting. Blood work this AM significant for elevated LFTs - AST in the ED 73, this morning 1200. ALT also elevated at 660, alk phos also elevated. Ordered right upper quadrant ultrasound, repeat CMP, and hepatitis panel. Contacted GI, Dr. Alvarez, and discussed over the phone. Continue current management for now, and await right upper quadrant ultrasound. MD Jenny Results & Data Results & Data ([facility]) Vital Signs (Past 12 Hours) Vital Signs Temp Pulse Resp BP Pulse Ox O2 Del Method 05/17/22 07:58 36.9 C 83 16 126/83 94 Room Air 05/17/22 03:07 36.9 C 85 18 130/84 93 Room Air
[2022-05-17 13:54] LABS: Appearance Urine Clear (Clear); Blood Urine Negative (Negative); Color Urine Dark Yellow; Glucose Urine UA Negative (Negative); Ketones Urine 1+ (Negative); Leukocyte Esterase Urine Negative (Negative); Nitrite Urine Negative (Negative); Protein Urine Negative (Negative); Specific Gravity Urine 1.025 (1.000-1.030); Urobilinogen Urine Positive (Negative)
[2022-05-17 13:55] LABS: Bilirubin Urine 1+ (Negative)
[2022-05-17] MEDS: METOCLOPRAMIDE HCL 5 MG TABLET PO PRN (18:02)
[2022-05-17] MEDS: WARFARIN SOD 5 MG TAB PO SCH (18:03)
[2022-05-17] MEDS: PANTOprazole 40 MG TAB PO SCH (20:36)
[2022-05-17] MEDS: AMITRIPTYLINE HCL 25 MG TAB PO SCH (20:36)
[2022-05-17] MEDS: tiZANidine HCL 4 MG TABLET PO SCH (21:46)
[2022-05-17] MEDS ORDERED: ALUMINUM/MAGNESIUM/SIMETH (MAALOX MAX) 30 ML UDC PO STA (23:52)
[2022-05-18] MEDS: HYDROmorphone INJ 0.5 MG/0.5 ML SYR IV PRN ×5 (01:45→21:17)
[2022-05-18] MEDS: diphenhydrAMINE 50 MG/ML VIAL IV PRN ×3 (01:46→17:48)
[2022-05-18] MEDS: LACTATED RINGER'S 1,000 ML IV SCH ×3 (04:57→18:56)
[2022-05-18 06:48] LABS: Hematocrit (blood only) 41.7 % (34.1-44.9); Hemoglobin 13.9 g/dl (12.0-16.0); Mean Corpuscular Hemoglobin 28.8 pg (25.0-34.0); Mean Corpuscular Hgb Conc 33.3 g/dL (32.0-36.0); Mean Corpuscular Volume 86.3 fL (80.0-100.0); Mean Platelet Volume 10.5 fL (9.4-12.3); Platelet Count 266 K/uL (130-400); RDW Coefficient of Variation 18.1 % (11.5-14.5); Red Blood Count 4.83 M/uL (3.93-5.22); White Blood Count 19.05 K/ul (4.8-10.8)
[2022-05-18 07:07] LABS: INR 4.2 (0.9-1.1); Prothrombin Time 41.3 Seconds (9.0-12.0)
[2022-05-18 07:14] LABS: Albumin Globulin Ratio 1.2 (0.9-2); Albumin Level 3.7 gm/dl (3.4-5.0); BUN Creatinine Ratio 10.5 (10-20); Calcium 9.1 mg/dl (8.5-10.1); Creatinine Clr Calc Pharmacy 126.3 ml/min; Est GFR (African American) 117.6 ml/min; Est GFR (Non-African American) 101.5 ml/min; Globulin 3.2 gm/dl (2.5-4.0); Magnesium 1.7 mg/dl (1.7-2.4); Phosphorus 2.8 mg/dl (2.5-4.9); Potassium 4.1 mmol/L (3.5-5.1); Total Protein 6.9 gm/dl (6.0-8.3)
[2022-05-18] MEDS: METOCLOPRAMIDE HCL 5 MG TABLET PO PRN (07:20)
[2022-05-18] MEDS ORDERED: PIPERACILLIN/TAZOBACTAM 3.375 GM in DEXTROSE 5% 100 ML IV ONE (08:15)
[2022-05-18] MEDS ORDERED: IBUPROFEN 200 MG TAB PO STA (08:45)
--- NOTE | 2022-05-18 10:37 | Hospitalist Progress Note ---
Date of Service May 18, 2022 Assessment & Plan (1) Abdominal pain, epigastric: (2) Left sided abdominal pain: (3) Leukocytosis: (4) Elevated LFTs: Plan This is a 57-year-old female with history of pancreatitis, hx of gastric bypass, hx of alcohol abuse, who presented with abdominal pain. 1. Abdominal pain - initially believed possible acute on chronic pancreatitis. CT of abdomen and pelvis is unremarkable. Lipase is 203. IV Ringer 150 mL, IV Dilaudid p.r.n., IV antiemetics p.r.n. GI consulted LFTs significantly elevated AM after admission - AST 1200s, ALT 660 Liver US obtained - unremarkable Acute hepatitis panel ordered Viral causes possible - ordered CMV EBV, HSV, Parvo Patient was also recently started on eletriptan by her neurologist, however reports she did not take it in a while LFTs trending down Pain improved, overall feeling better 2. Leukocytosis. No obvious infection. Blood cultx obtained, UA negat. Started empiric zosyn Cont. to monitor 3. History of recurrent pulmonary emboli on Coumadin. We will follow the PT/INR. 4. History of migraines, currently stable. Continue home medications. 5. Gastroesophageal reflux disease. On omeprazole. 6. Depression, anxiety. On buspirone and bupropion. 7. History of gastric bypass surgery followup with PCP, followup for any vitamin deficiencies. DVT prophylaxis: On Coumadin. We will follow PT/INR. DISPOSITION: medical floor Admission and Anticipated Discharge Date Admission Date: May 17, 2022 Subjective Patient seen in follow up of epigastric pain and left upper quadrant pain No fevers or chills, no chest pain or shortness of breath. Denies any blood in the stool. Denies nausea vomiting. Yesterday AST elevated at 1200. ALT also elevated at 660, alk phos also elevated. LFTs trending down today but WBC elevated at 19K Patient is tolerating clear liquid diet. Abdomen at the moment seems to be less painful. Pt is passing gas, no BM while in the hospital. No n/v She was started on eletriptan by her neurologist but says she did not take it in a while. And she is only allowed to take it sparingly. Review of Systems Review of Systems: All systems reviewed & are unremarkable except as noted in Subjective Physical Exam Physical Exam: GENERAL: The patient is of moderate build, not in acute distress. HEENT: Pupils equal, round and reactive to light.EOMI. Oral mucosa moist. NECK: No JVD, no neck masses. CARDIOVASCULAR: S1 and S2 heard. Regular rate and rhythm. No murmur, no gallop. RESPIRATORY: Normal AP diameter. No accessory muscle use. No wheezing, no crackles. ABDOMEN: Soft, bowel sounds present. Epigastric tenderness present. Mild guarding. No rigidity. No distention. NEURO:Alert oriented, answers appropriately, speech fluent, no facial asymmetry, moves extremities EXTREMITIES: No edema, no erythema. Results & Data Results & Data ([facility]) Vital Signs (Past 12 Hours) Vital Signs Temp Pulse Resp BP Pulse Ox O2 Del Method 05/18/22 08:03 37.1 C 94 H 16 132/76 91 Room Air Laboratory Results 05/18/22 05/18/22 05/18/22 Range/Units 09:47 06:09 06:09 WBC (4.8-10.8) K/ul RBC (3.93-5.22) M/uL Hgb (12.0-16.0) g/dl Hct (34.1-44.9) % MCV (80.0-100.0) fL MCH (25.0-34.0) pg MCHC (32.0-36.0) g/dL RDW Std Deviation (36.4-46.3) fL RDW Coeff of Mukul (11.5-14.5) % Plt Count (130-400) K/uL MPV (9.4-12.3) fL PT 41.3 H (9.0-12.0) Seconds INR 4.2 H (0.9-1.1) Sodium 136 (136-145) mmol/L Potassium 4.1 (3.5-5.1) mmol/L Chloride 101 (98-107) mmol/L Carbon Dioxide 28 (21-32) mmol/L Anion Gap 7 (3-11) BUN 6 (6-23) mg/dl Creatinine 0.57 L (0.6-1.2) mg/dl Est Cr Clr Drug Dosing 126.3 ml/min Est GFR ( Amer) 117.6 ml/min Est GFR (Non-Af Amer) 101.5 ml/min BUN/Creatinine Ratio 10.5 (10-20) Glucose 66 L (70-99(Fasting)) mg/dl POC Glucose 99 (70-99) mg/dl Calcium 9.1 (8.5-10.1) mg/dl Phosphorus 2.8 (2.5-4.9) mg/dl Magnesium 1.7 (1.7-2.4) mg/dl Total Bilirubin 1.0 (0.2-1.0) mg/dl AST 376 H (13-39) U/L ALT 387 H (7-52) U/L Alkaline Phosphatase 412 H (34-104) U/L Total Protein 6.9 (6.0-8.3) gm/dl Albumin 3.7 (3.4-5.0) gm/dl Globulin 3.2 (2.5-4.0) gm/dl Albumin/Globulin Ratio 1.2 (0.9-2) Urine Color Urine Appearance (Clear) Urine pH (4.5-7.5) Ur Specific [place] (1.000-1.030) Urine Protein (Negative) Urine Glucose (UA) (Negative) Urine Ketones (Negative) Urine Blood (Negative) Urine Nitrite (Negative) Urine Bilirubin (Negative) Urine Urobilinogen (Negative) Ur Leukocyte Esterase (Negative) 05/18/22 05/17/22 Range/Units 06:09 13:40 WBC 19.05 H (4.8-10.8) K/ul RBC 4.83 (3.93-5.22) M/uL Hgb 13.9 (12.0-16.0) g/dl Hct 41.7 (34.1-44.9) % MCV 86.3 (80.0-100.0) fL MCH 28.8 (25.0-34.0) pg MCHC 33.3 (32.0-36.0) g/dL RDW Std Deviation 57.0 H (36.4-46.3) fL RDW Coeff of Mukul 18.1 H (11.5-14.5) % Plt Count 266 (130-400) K/uL MPV 10.5 (9.4-12.3) fL PT (9.0-12.0) Seconds INR (0.9-1.1) Sodium (136-145) mmol/L Potassium (3.5-5.1) mmol/L Chloride (98-107) mmol/L Carbon Dioxide (21-32) mmol/L Anion Gap (3-11) BUN (6-23) mg/dl Creatinine (0.6-1.2) mg/dl Est Cr Clr Drug Dosing ml/min Est GFR ( Amer) ml/min Est GFR (Non-Af Amer) ml/min BUN/Creatinine Ratio (10-20) Glucose (70-99(Fasting)) mg/dl POC Glucose (70-99) mg/dl Calcium (8.5-10.1) mg/dl Phosphorus (2.5-4.9) mg/dl Magnesium (1.7-2.4) mg/dl Total Bilirubin (0.2-1.0) mg/dl AST (13-39) U/L ALT (7-52) U/L Alkaline Phosphatase (34-104) U/L Total Protein (6.0-8.3) gm/dl Albumin (3.4-5.0) gm/dl Globulin (2.5-4.0) gm/dl Albumin/Globulin Ratio (0.9-2) Urine Color Dark Yellow Urine Appearance Clear (Clear) Urine pH 6.0 (4.5-7.5) Ur Specific [place] 1.025 (1.000-1.030) Urine Protein Negative (Negative) Urine Glucose (UA) Negative (Negative) Urine Ketones 1+ H (Negative) Urine Blood Negative (Negative) Urine Nitrite Negative (Negative) Urine Bilirubin 1+ H (Negative) Urine Urobilinogen Positive H (Negative) Ur Leukocyte Esterase Negative (Negative) Medications Administered Current Inpatient Medications Amitriptyline HCl (Amitriptyline Hcl 25 Mg Tab) 25 mg PO HS STEVEN Stop: 06/16/22 20:59 Last Admin: 05/17/22 20:36 Dose: 25 mg Bupropion HCl (Bupropion Xl 300 Mg Tabcr) 300 mg PO DAILY STEVEN Stop: 06/16/22 08:59 Last Admin: 05/18/22 12:25 Dose: 300 mg Calcium/Vitamin D (Calcium 600mg + Vit D 400 Iu Tab) 1 tab PO BID STEVEN Stop: 06/16/22 08:59 Last Admin: 05/18/22 12:24 Dose: 1 tab Diphenhydramine HCl (Diphenhydramine 50 Mg/Ml Vial) 25 mg IV Q6H PRN PRN Reason: Allergic Symptoms Stop: 06/16/22 02:36 Last Admin: 05/18/22 10:30 Dose: 25 mg Hydromorphone HCl (Hydromorphone Inj 0.5 Mg/0.5 Ml Syr) 0.5 mg IV Q3H PRN PRN Reason: Pain Stop: 05/31/22 02:36 Last Admin: 05/18/22 10:31 Dose: 0.5 mg Lactated Ringer's (Lr) 1,000 mls @ 150 mls/hr IV .Q6H40M STEVEN Stop: 06/16/22 02:36 Last Admin: 05/18/22 11:55 Dose: 150 mls/hr Piperacillin Sod/Tazobactam (Sod 3.375 gm/ Dextrose) 115 mls @ 28.75 mls/hr IV Q8H STEVEN; Protocol Stop: 05/20/22 14:59 Last Admin: 05/18/22 16:22 Dose: 28.8 mls/hr Metoclopramide HCl (Metoclopramide Hcl 5 Mg Tablet) 5 mg PO UD PRN PRN Reason: Migraine Headache Stop: 06/16/22 02:36 Last Admin: 05/18/22 07:20 Dose: 5 mg Multivitamins/Minerals (Cerovite Adv Formula Tab) 1 tab PO DAILY STEVEN Stop: 06/16/22 08:59 Last Admin: 05/18/22 12:25 Dose: 1 tab Ondansetron HCl (Ondansetron Inj 2 Mg/Ml 2 Ml Vial) 4 mg IV Q6H PRN PRN Reason: Nausea Stop: 06/16/22 02:36 Last Admin: 05/17/22 07:33 Dose: 4 mg Pantoprazole Sodium (Pantoprazole 40 Mg Tab) 40 mg PO HS STEVEN Stop: 06/16/22 20:59 Last Admin: 05/17/22 20:36 Dose: 40 mg Polyethylene Glycol (Polyethylene (Miralax) 17 Gm Pack) 17 gm PO DAILY PRN PRN Reason: Constipation Stop: 06/16/22 02:36 Polyethylene Glycol (Polyethylene (Miralax) 17 Gm Pack) 17 gm PO BID STEVEN Stop: 06/16/22 08:59 Last Admin: 05/18/22 12:23 Dose: 17 gm Prenat Multivit/[place]/Iron/Folic Ac ( Vitamin 1 Tab) 1 tab PO DAILY [facility] Stop: 06/16/22 08:59 Last Admin: 05/18/22 12:25 Dose: 1 tab Simethicone (Simethicone 80 Mg Chew) 80 mg PO Q6H PRN PRN Reason: Gas or Constipation Stop: 06/17/22 10:12 Last Admin: 05/18/22 12:26 Dose: 80 mg Tizanidine HCl (Tizanidine Hcl 4 Mg Tablet) 10.5 - 12 mg PO HS [facility] Stop: 06/16/22 20:59 Last Admin: 05/17/22 21:46 Dose: 10.5 mg Warfarin Sodium (Warfarin Sod 5 Mg Tab) 5 mg PO [email or web address] [facility] Stop: 06/16/22 15:59 Last Admin: 05/17/22 18:03 Dose: 5 mg Warfarin Sodium (Warfarin Sod 2.5 Mg Tab) 2.5 mg PO [email or web address] [facility] Stop: 06/19/22 15:59 Zolpidem Tartrate (Zolpidem Tartrate 5 Mg Tab) 5 mg PO HS PRN PRN Reason: Sleep (1) Leukocytosis Leukocytosis type: unspecified Qualified Code(s): D72.829 - Elevated white blood cell count, unspecified
[2022-05-18] MEDS ORDERED: MAGNESIUM SULFATE / D5W 1 GM/100 ML BAG IV ONE (11:00)
--- NOTE | 2022-05-18 11:43 | Gastroenterology Progress Note ---
Date of Service May 18, 2022 Assessment & Plan (1) S/P gastric bypass: (2) Abnormal liver function tests: Plan: Pt is a 57 yo female followed for elevated LFTs. Hx of gastric bypass and s/p cholecystectomy. Not clear on etiology of acute on chronic LFTs elevation. Given mild rise in lipase possible she may have passes stones vs had viral illnesses as she had sore throat, congestion and rashes on mouth (COVID 19 negative). LFTs trending down and clinically doing well. - Add viral serologies: EBV, CMV, Parvo, HSV - Trend LFTs - Infection workup (elevated WBC) per primary team - Avoid ETOH, no APAP >2g daily if needed - Pls recall GI prn Admission and Anticipated Discharge Date Admission Date: May 17, 2022 Supervising Physician Co-Signing Physician Notes Late entry: Patient was seen and examined on 05/18 with PEGGY Tucker whose note reflects our findings and plan. Subjective Patient feels quite well, denies any fevers or chills overnight, nausea or vomiting. She does have some gassiness and cramping at times. Review of Systems Review of Systems: All systems reviewed & are unremarkable except as noted in HPI & below Physical Exam Constitutional: WD/WN, vitals as above well groomed, cooperative and comfortable Eyes: PERRL, conjunctivae normal, anicteric sclerae ENMT: external ear and nose normal, oropharynx normal Respiratory: normal respiratory effort, lungs clear to auscultation Cardiovascular: RRR, no murmur, no edema Gastrointestinal (Abdomen): normal bowel sounds, soft, nontender, no hepatosplenomegaly Skin: no rashes, warm and dry no jaundice Psychiatric: A+Ox3, euthymic affect Lymphatic: no lymphedema Results & Data ([facility]) Vital Signs (Past 12 Hours) Vital Signs Temp Pulse Resp BP Pulse Ox O2 Del Method 05/18/22 08:03 37.1 C 94 H 16 132/76 91 Room Air
[2022-05-18] MEDS: POLYETHYLENE (MIRALAX) 17 GM PACK PO SCH ×2 (12:23→21:22)
[2022-05-18] MEDS: CALCIUM 600MG + VIT D 400 IU TAB PO SCH ×2 (12:24→21:55)
[2022-05-18] MEDS: buPROPion XL 300 MG TABCR PO SCH (12:25)
[2022-05-18] MEDS: PRENATAL VITAMIN 1 TAB PO SCH (12:25)
[2022-05-18] MEDS: CEROVITE ADV FORMULA TAB PO SCH (12:25)
[2022-05-18] MEDS: SIMETHICONE 80 MG CHEW PO PRN ×2 (12:26→18:58)
[2022-05-18] MEDS ORDERED: IBUPROFEN 200 MG TAB PO ONE (12:28)
[2022-05-18] MEDS: PIPERACILLIN/TAZOBACTAM 3.375 GM in DEXTROSE 5% 100 ML IV SCH ×2 (16:22→22:04)
[2022-05-18 18:04] LABS: Appearance Urine Clear (Clear); Bacteria Urine Automated Negative (Negative); Bilirubin Urine Negative (Negative); Blood Urine Trace (Negative); Cast Urine Automated 0 /lpf (0-5); Color Urine Yellow; Glucose Urine UA Negative (Negative); Ketones Urine Negative (Negative); Leukocyte Esterase Urine Negative (Negative); Nitrite Urine Negative (Negative); Protein Urine Negative (Negative); Specific Gravity Urine 1.008 (1.000-1.030); Urobilinogen Urine Negative (Negative)
[2022-05-18] MEDS ORDERED: ALUMINUM/MAGNESIUM/SIMETH (MAALOX MAX) 30 ML UDC PO STA (21:51)
[2022-05-18] MEDS: PANTOprazole 40 MG TAB PO SCH (21:56)
[2022-05-18] MEDS: AMITRIPTYLINE HCL 25 MG TAB PO SCH (21:56)
[2022-05-18] MEDS: ZOLPIDEM TARTRATE 5 MG TAB PO PRN (21:58)
[2022-05-18] MEDS: tiZANidine HCL 4 MG TABLET PO SCH (22:02)
[2022-05-19] MEDS: LACTATED RINGER'S 1,000 ML IV SCH ×4 (01:36→20:52)
[2022-05-19 06:03] LABS: Hematocrit (blood only) 39.8 % (34.1-44.9); Hemoglobin 13.3 g/dl (12.0-16.0); Mean Corpuscular Hemoglobin 28.9 pg (25.0-34.0); Mean Corpuscular Hgb Conc 33.4 g/dL (32.0-36.0); Mean Corpuscular Volume 86.3 fL (80.0-100.0); Mean Platelet Volume 10.1 fL (9.4-12.3); Platelet Count 248 K/uL (130-400); RDW Coefficient of Variation 18.1 % (11.5-14.5); RDW Standard Deviation 56.7 fL (36.4-46.3); Red Blood Count 4.61 M/uL (3.93-5.22); White Blood Count 11.36 K/ul (4.8-10.8)
[2022-05-19] MEDS: PIPERACILLIN/TAZOBACTAM 3.375 GM in DEXTROSE 5% 100 ML IV SCH ×3 (06:09→23:27)
[2022-05-19 06:27] LABS: INR 2.6 (0.9-1.1); Prothrombin Time 26.6 Seconds (9.0-12.0)
[2022-05-19 06:35] LABS: Albumin Globulin Ratio 1.1 (0.9-2); Albumin Level 3.2 gm/dl (3.4-5.0); BUN Creatinine Ratio 8.5 (10-20); Bilirubin,Total 0.9 mg/dl (0.2-1.0); Calcium 8.9 mg/dl (8.5-10.1); Est GFR (African American) 116.3 ml/min; Est GFR (Non-African American) 100.3 ml/min; Globulin 2.9 gm/dl (2.5-4.0); Magnesium 1.7 mg/dl (1.7-2.4); Phosphorus 2.4 mg/dl (2.5-4.9); Potassium 4.2 mmol/L (3.5-5.1); Total Protein 6.1 gm/dl (6.0-8.3)
--- NOTE | 2022-05-19 07:37 | Hospitalist Progress Note ---
Date of Service May 19, 2022 Assessment & Plan (1) Abdominal pain, epigastric: (2) Left sided abdominal pain: (3) Leukocytosis: (4) Elevated LFTs: Plan This is a 57-year-old female with history of pancreatitis, hx of gastric bypass, hx of alcohol abuse, who presented with abdominal pain. 1. Abdominal pain - initially believed possible acute on chronic pancreatitis. CT of abdomen and pelvis is unremarkable. Lipase is 203. IV Ringer 150 mL, IV Dilaudid p.r.n., IV antiemetics p.r.n. GI consulted LFTs significantly elevated AM after admission - AST 1200s, ALT 660 Liver US obtained - unremarkable Acute hepatitis panel ordered Viral causes possible - ordered CMV EBV, HSV, Parvo Patient was also recently started on eletriptan by her neurologist, however reports she did not take it in a while LFTs trending down Pain improved, overall feeling better 2. Leukocytosis. No obvious infection. Blood cultx obtained, UA negat. Started empiric zosyn Cont. to monitor 3. History of recurrent pulmonary emboli on Coumadin. We will follow the PT/INR. 4. History of migraines, currently stable. Continue home medications. 5. Gastroesophageal reflux disease. On omeprazole. 6. Depression, anxiety. On buspirone and bupropion. 7. History of gastric bypass surgery followup with PCP, followup for any vitamin deficiencies. DVT prophylaxis: On Coumadin. We will follow PT/INR. DISPOSITION: medical floor Admission and Anticipated Discharge Date Admission Date: May 17, 2022 Subjective Patient seen in follow up of epigastric pain and left upper quadrant pain No fevers or chills, no chest pain or shortness of breath. Denies any blood in the stool. Denies nausea vomiting. AST elevated at 1200. ALT also elevated at 660, alk phos also elevated. LFTs trending down WBC also trended down today Patient is tolerating clear liquid diet. Pt is passing gas, no BM while in the hospital. No n/v Reports abd. pain was better but now in pain again. She was started on eletriptan by her neurologist but says she did not take it in a while. And she is only allowed to take it sparingly. Review of Systems Review of Systems: All systems reviewed & are unremarkable except as noted in Subjective Physical Exam Physical Exam: GENERAL: The patient is of moderate build, not in acute distress. HEENT: Pupils equal, round and reactive to light.EOMI. Oral mucosa moist. NECK: No JVD, no neck masses. CARDIOVASCULAR: S1 and S2 heard. Regular rate and rhythm. No murmur, no gallop. RESPIRATORY: Normal AP diameter. No accessory muscle use. No wheezing, no crackles. ABDOMEN: Soft, bowel sounds present. Epigastric tenderness present. No rigidity. No distention. NEURO:Alert oriented, answers appropriately, speech fluent, no facial asymmetry, moves extremities EXTREMITIES: No edema, no erythema. Results & Data Results & Data ([facility]) Vital Signs (Past 12 Hours) Vital Signs Temp Pulse Resp BP Pulse Ox O2 Del Method 05/18/22 21:45 37 C 76 18 135/85 96 Room Air Laboratory Results 05/19/22 05/19/22 05/19/22 Range/Units 05:43 05:43 05:43 WBC 11.36 H (4.8-10.8) K/ul RBC 4.61 (3.93-5.22) M/uL Hgb 13.3 (12.0-16.0) g/dl Hct 39.8 (34.1-44.9) % MCV 86.3 (80.0-100.0) fL MCH 28.9 (25.0-34.0) pg MCHC 33.4 (32.0-36.0) g/dL RDW Std Deviation 56.7 H (36.4-46.3) fL RDW Coeff of Mukul 18.1 H (11.5-14.5) % Plt Count 248 (130-400) K/uL MPV 10.1 (9.4-12.3) fL PT 26.6 H (9.0-12.0) Seconds INR 2.6 H (0.9-1.1) Sodium 137 (136-145) mmol/L Potassium 4.2 (3.5-5.1) mmol/L Chloride 103 (98-107) mmol/L Carbon Dioxide 28 (21-32) mmol/L Anion Gap 6 (3-11) BUN 5 L (6-23) mg/dl Creatinine 0.59 L (0.6-1.2) mg/dl Est Cr Clr Drug Dosing 122.0 ml/min Est GFR ( Amer) 116.3 ml/min Est GFR (Non-Af Amer) 100.3 ml/min BUN/Creatinine Ratio 8.5 L (10-20) Glucose 76 (70-99(Fasting)) mg/dl POC Glucose (70-99) mg/dl Calcium 8.9 (8.5-10.1) mg/dl Phosphorus 2.4 L (2.5-4.9) mg/dl Magnesium 1.7 (1.7-2.4) mg/dl Total Bilirubin 0.9 (0.2-1.0) mg/dl AST 131 H (13-39) U/L ALT 222 H (7-52) U/L Alkaline Phosphatase 340 H (34-104) U/L Total Protein 6.1 (6.0-8.3) gm/dl Albumin 3.2 L (3.4-5.0) gm/dl Globulin 2.9 (2.5-4.0) gm/dl Albumin/Globulin Ratio 1.1 (0.9-2) Urine Color Urine Appearance (Clear) Urine pH (4.5-7.5) Ur Specific [place] (1.000-1.030) Urine Protein (Negative) Urine Glucose (UA) (Negative) Urine Ketones (Negative) Urine Blood (Negative) Urine Nitrite (Negative) Urine Bilirubin (Negative) Urine Urobilinogen (Negative) Ur Leukocyte Esterase (Negative) Urine WBC (Auto) (0-5) /hpf Urine RBC (Auto) (0-4) /hpf U Hyaline Cast (Auto) (0-5) /lpf U Epithel Cells (Auto) (0-5) /lpf Urine Bacteria (Auto) (Negative) CMV IgM Ab CMV IgG Ab/TORCH EBV Capsid Ag IgG Ab EBV Capsid Ag IgM Ab EBV Nuclear Antigen Ab EBV Antibody Interp HSV I IgG Ab HSV I IgM TORCH HSV II IgG HSV II IgM TORCH Parvovirus IgG Ab Index Parvovirus IgM Ab Index 05/18/22 05/18/22 05/18/22 Range/Units 17:41 10:31 10:31 WBC (4.8-10.8) K/ul RBC (3.93-5.22) M/uL Hgb (12.0-16.0) g/dl Hct (34.1-44.9) % MCV (80.0-100.0) fL MCH (25.0-34.0) pg MCHC (32.0-36.0) g/dL RDW Std Deviation (36.4-46.3) fL RDW Coeff of Mukul (11.5-14.5) % Plt Count (130-400) K/uL MPV (9.4-12.3) fL PT (9.0-12.0) Seconds INR (0.9-1.1) Sodium (136-145) mmol/L Potassium (3.5-5.1) mmol/L Chloride (98-107) mmol/L Carbon Dioxide (21-32) mmol/L Anion Gap (3-11) BUN (6-23) mg/dl Creatinine (0.6-1.2) mg/dl Est Cr Clr Drug Dosing ml/min Est GFR ( Amer) ml/min Est GFR (Non-Af Amer) ml/min BUN/Creatinine Ratio (10-20) Glucose (70-99(Fasting)) mg/dl POC Glucose (70-99) mg/dl Calcium (8.5-10.1) mg/dl Phosphorus (2.5-4.9) mg/dl Magnesium (1.7-2.4) mg/dl Total Bilirubin (0.2-1.0) mg/dl AST (13-39) U/L ALT (7-52) U/L Alkaline Phosphatase (34-104) U/L Total Protein (6.0-8.3) gm/dl Albumin (3.4-5.0) gm/dl Globulin (2.5-4.0) gm/dl Albumin/Globulin Ratio (0.9-2) Urine Color Yellow Urine Appearance Clear (Clear) Urine pH 8.0 H (4.5-7.5) Ur Specific [place] 1.008 (1.000-1.030) Urine Protein Negative (Negative) Urine Glucose (UA) Negative (Negative) Urine Ketones Negative (Negative) Urine Blood Trace H (Negative) Urine Nitrite Negative (Negative) Urine Bilirubin Negative (Negative) Urine Urobilinogen Negative (Negative) Ur Leukocyte Esterase Negative (Negative) Urine WBC (Auto) 1-5 (0-5) /hpf Urine RBC (Auto) 5-10 H (0-4) /hpf U Hyaline Cast (Auto) 0 (0-5) /lpf U Epithel Cells (Auto) 5-10 H (0-5) /lpf Urine Bacteria (Auto) Negative (Negative) CMV IgM Ab Pending CMV IgG Ab/TORCH Pending EBV Capsid Ag IgG Ab Pending EBV Capsid Ag IgM Ab Pending EBV Nuclear Antigen Ab Pending EBV Antibody Interp Pending HSV I IgG Ab Pending HSV I IgM TORCH Pending HSV II IgG Pending HSV II IgM TORCH Pending Parvovirus IgG Ab Index Pending Parvovirus IgM Ab Index Pending 05/18/22 Range/Units 09:47 WBC (4.8-10.8) K/ul RBC (3.93-5.22) M/uL Hgb (12.0-16.0) g/dl Hct (34.1-44.9) % MCV (80.0-100.0) fL MCH (25.0-34.0) pg MCHC (32.0-36.0) g/dL RDW Std Deviation (36.4-46.3) fL RDW Coeff of Mukul (11.5-14.5) % Plt Count (130-400) K/uL MPV (9.4-12.3) fL PT (9.0-12.0) Seconds INR (0.9-1.1) Sodium (136-145) mmol/L Potassium (3.5-5.1) mmol/L Chloride (98-107) mmol/L Carbon Dioxide (21-32) mmol/L Anion Gap (3-11) BUN (6-23) mg/dl Creatinine (0.6-1.2) mg/dl Est Cr Clr Drug Dosing ml/min Est GFR ( Amer) ml/min Est GFR (Non-Af Amer) ml/min BUN/Creatinine Ratio (10-20) Glucose (70-99(Fasting)) mg/dl POC Glucose 99 (70-99) mg/dl Calcium (8.5-10.1) mg/dl Phosphorus (2.5-4.9) mg/dl Magnesium (1.7-2.4) mg/dl Total Bilirubin (0.2-1.0) mg/dl AST (13-39) U/L ALT (7-52) U/L Alkaline Phosphatase (34-104) U/L Total Protein (6.0-8.3) gm/dl Albumin (3.4-5.0) gm/dl Globulin (2.5-4.0) gm/dl Albumin/Globulin Ratio (0.9-2) Urine Color Urine Appearance (Clear) Urine pH (4.5-7.5) Ur Specific [place] (1.000-1.030) Urine Protein (Negative) Urine Glucose (UA) (Negative) Urine Ketones (Negative) Urine Blood (Negative) Urine Nitrite (Negative) Urine Bilirubin (Negative) Urine Urobilinogen (Negative) Ur Leukocyte Esterase (Negative) Urine WBC (Auto) (0-5) /hpf Urine RBC (Auto) (0-4) /hpf U Hyaline Cast (Auto) (0-5) /lpf U Epithel Cells (Auto) (0-5) /lpf Urine Bacteria (Auto) (Negative) CMV IgM Ab CMV IgG Ab/TORCH EBV Capsid Ag IgG Ab EBV Capsid Ag IgM Ab EBV Nuclear Antigen Ab EBV Antibody Interp HSV I IgG Ab HSV I IgM TORCH HSV II IgG HSV II IgM TORCH Parvovirus IgG Ab Index Parvovirus IgM Ab Index Medications Administered Current Inpatient Medications Amitriptyline HCl (Amitriptyline Hcl 25 Mg Tab) 25 mg PO HS STEVEN Stop: 06/16/22 20:59 Last Admin: 05/18/22 21:56 Dose: 25 mg Bupropion HCl (Bupropion Xl 300 Mg Tabcr) 300 mg PO DAILY STEVEN Stop: 06/16/22 08:59 Last Admin: 05/18/22 12:25 Dose: 300 mg Calcium/Vitamin D (Calcium 600mg + Vit D 400 Iu Tab) 1 tab PO BID STEVEN Stop: 06/16/22 08:59 Last Admin: 05/18/22 21:55 Dose: 1 tab Diphenhydramine HCl (Diphenhydramine 50 Mg/Ml Vial) 25 mg IV Q6H PRN PRN Reason: Allergic Symptoms Stop: 06/16/22 02:36 Last Admin: 05/18/22 17:48 Dose: 25 mg Hydromorphone HCl (Hydromorphone Inj 0.5 Mg/0.5 Ml Syr) 0.5 mg IV Q3H PRN PRN Reason: Pain Stop: 05/31/22 02:36 Last Admin: 05/18/22 21:17 Dose: 0.5 mg Lactated Ringer's (Lr) 1,000 mls @ 150 mls/hr IV .Q6H40M STEVEN Stop: 06/16/22 02:36 Last Admin: 05/19/22 01:36 Dose: 150 mls/hr Piperacillin Sod/Tazobactam (Sod 3.375 gm/ Dextrose) 115 mls @ 28.75 mls/hr IV Q8H STEVEN; Protocol Stop: 05/20/22 14:59 Last Admin: 05/19/22 06:09 Dose: 28.8 mls/hr Metoclopramide HCl (Metoclopramide Hcl 5 Mg Tablet) 5 mg PO UD PRN PRN Reason: Migraine Headache Stop: 06/16/22 02:36 Last Admin: 05/18/22 07:20 Dose: 5 mg Multivitamins/Minerals (Cerovite Adv Formula Tab) 1 tab PO DAILY STEVEN Stop: 06/16/22 08:59 Last Admin: 05/18/22 12:25 Dose: 1 tab Ondansetron HCl (Ondansetron Inj 2 Mg/Ml 2 Ml Vial) 4 mg IV Q6H PRN PRN Reason: Nausea Stop: 06/16/22 02:36 Last Admin: 05/17/22 07:33 Dose: 4 mg Pantoprazole Sodium (Pantoprazole 40 Mg Tab) 40 mg PO HS STEVEN Stop: 06/16/22 20:59 Last Admin: 05/18/22 21:56 Dose: 40 mg Polyethylene Glycol (Polyethylene (Miralax) 17 Gm Pack) 17 gm PO DAILY PRN PRN Reason: Constipation Stop: 06/16/22 02:36 Polyethylene Glycol (Polyethylene (Miralax) 17 Gm Pack) 17 gm PO BID STEVEN Stop: 06/16/22 08:59 Last Admin: 05/18/22 21:22 Dose: Not Given Prenat Multivit/Ux Interaction Designer/Iron/Folic Ac ( Vitamin 1 Tab) 1 tab PO DAILY STEVEN Stop: 06/16/22 08:59 Last Admin: 05/18/22 12:25 Dose: 1 tab Simethicone (Simethicone 80 Mg Chew) 80 mg PO Q6H PRN PRN Reason: Gas or Constipation Stop: 06/17/22 10:12 Last Admin: 05/18/22 18:58 Dose: 80 mg Tizanidine HCl (Tizanidine Hcl 4 Mg Tablet) 10.5 - 12 mg PO HS [facility] Stop: 06/16/22 20:59 Last Admin: 05/18/22 22:02 Dose: 12 mg Warfarin Sodium (Warfarin Sod 5 Mg Tab) 5 mg PO [email or web address] [facility] Stop: 06/16/22 15:59 Last Admin: 05/17/22 18:03 Dose: 5 mg Warfarin Sodium (Warfarin Sod 2.5 Mg Tab) 2.5 mg PO [email or web address] [facility] Stop: 06/19/22 15:59 Zolpidem Tartrate (Zolpidem Tartrate 5 Mg Tab) 5 mg PO HS PRN PRN Reason: Sleep Last Admin: 05/18/22 21:58 Dose: 5 mg (1) Leukocytosis Leukocytosis type: unspecified Qualified Code(s): D72.829 - Elevated white blood cell count, unspecified
[2022-05-19] MEDS: SIMETHICONE 80 MG CHEW PO PRN (10:07)
[2022-05-19] MEDS: POLYETHYLENE (MIRALAX) 17 GM PACK PO SCH ×2 (10:08→20:53)
[2022-05-19] MEDS: buPROPion XL 300 MG TABCR PO SCH (10:09)
[2022-05-19] MEDS: CEROVITE ADV FORMULA TAB PO SCH (10:09)
[2022-05-19] MEDS: PRENATAL VITAMIN 1 TAB PO SCH (10:09)
[2022-05-19] MEDS: CALCIUM 600MG + VIT D 400 IU TAB PO SCH ×2 (10:10→20:54)
[2022-05-19] MEDS: diphenhydrAMINE 50 MG/ML VIAL IV PRN (11:08)
[2022-05-19] MEDS: HYDROmorphone INJ 0.5 MG/0.5 ML SYR IV PRN ×2 (11:09→17:07)
[2022-05-19] MEDS ORDERED: bisacodyL 10 MG SUPP PR STA (12:01)
[2022-05-19] MEDS ORDERED: SENNA 8.6 MG TAB PO ONE (12:03)
[2022-05-19 12:46] LABS: HBSAG NON-REACTIVE (NON-REACTIVE); Hepatitis A Antibody IgM NON-REACTIVE (NON-REACTIVE); Hepatitis B Core Antibody IgM NON-REACTIVE (NON-REACTIVE)
[2022-05-19] MEDS: WARFARIN SOD 5 MG TAB PO SCH (15:24)
[2022-05-19] MEDS: ZOLPIDEM TARTRATE 5 MG TAB PO PRN (20:52)
[2022-05-19] MEDS: AMITRIPTYLINE HCL 25 MG TAB PO SCH (20:53)
[2022-05-19] MEDS: tiZANidine HCL 4 MG TABLET PO SCH (20:53)
[2022-05-19] MEDS: PANTOprazole 40 MG TAB PO SCH (20:54)
[2022-05-20] MEDS: LACTATED RINGER'S 1,000 ML IV SCH ×2 (03:20→09:37)
[2022-05-20 06:13] LABS: Hematocrit (blood only) 38.8 % (34.1-44.9); Mean Corpuscular Hemoglobin 29.1 pg (25.0-34.0); Mean Corpuscular Hgb Conc 33.5 g/dL (32.0-36.0); Mean Corpuscular Volume 86.8 fL (80.0-100.0); Mean Platelet Volume 10.4 fL (9.4-12.3); Platelet Count 283 K/uL (130-400); Red Blood Count 4.47 M/uL (3.93-5.22)
[2022-05-20] MEDS: PIPERACILLIN/TAZOBACTAM 3.375 GM in DEXTROSE 5% 100 ML IV SCH (06:21)
[2022-05-20 06:24] LABS: INR 2.6 (0.9-1.1); Prothrombin Time 26.2 Seconds (9.0-12.0)
[2022-05-20 06:40] LABS: Albumin Globulin Ratio 1.1 (0.9-2); Albumin Level 3.2 gm/dl (3.4-5.0); BUN Creatinine Ratio 7.1 (10-20); Bilirubin,Total 0.6 mg/dl (0.2-1.0); Creatinine Clr Calc Pharmacy 102.8 ml/min; Est GFR (African American) 109.9 ml/min; Est GFR (Non-African American) 94.8 ml/min; Potassium 3.8 mmol/L (3.5-5.1); Total Protein 6.2 gm/dl (6.0-8.3)
[2022-05-20] MEDS: CALCIUM 600MG + VIT D 400 IU TAB PO SCH (07:59)
[2022-05-20] MEDS: CEROVITE ADV FORMULA TAB PO SCH (07:59)
[2022-05-20] MEDS: POLYETHYLENE (MIRALAX) 17 GM PACK PO SCH (07:59)
[2022-05-20] MEDS: PRENATAL VITAMIN 1 TAB PO SCH (07:59)
[2022-05-20] MEDS: buPROPion XL 300 MG TABCR PO SCH (07:59)
--- NOTE | 2022-05-20 08:23 | Hospitalist Progress Note ---
Date of Service May 20, 2022 Assessment & Plan (1) Abdominal pain, epigastric: (2) Left sided abdominal pain: (3) Leukocytosis: (4) Elevated LFTs: Plan This is a 57-year-old female with history of pancreatitis, hx of gastric bypass, hx of alcohol abuse, who presented with abdominal pain. 1. Abdominal pain - initially believed possible acute on chronic pancreatitis. CT of abdomen and pelvis is unremarkable. Lipase is 203. IV Ringer 150 mL, IV Dilaudid p.r.n., IV antiemetics p.r.n. GI consulted LFTs significantly elevated AM after admission - AST 1200s, ALT 660 Liver US obtained - unremarkable Acute hepatitis panel ordered Viral causes possible - ordered CMV EBV, HSV, Parvo Patient was also recently started on eletriptan by her neurologist, however reports she did not take it in a while LFTs trending down Pain improved, overall feeling better 2. Leukocytosis. No obvious infection. Blood cultx - negat. for 48 hrs, UA negat. Started empiric zosyn - will DC now Cont. to monitor 3. History of recurrent pulmonary emboli on Coumadin. We will follow the PT/INR. 4. History of migraines, currently stable. Continue home medications. 5. Gastroesophageal reflux disease. On omeprazole. 6. Depression, anxiety. On buspirone and bupropion. 7. History of gastric bypass surgery followup with PCP, followup for any vitamin deficiencies. DVT prophylaxis: On Coumadin. We will follow PT/INR. DISPOSITION: Plan to [place] home Admission and Anticipated Discharge Date Admission Date: May 17, 2022 Subjective Patient seen in follow up of epigastric pain and left upper quadrant pain No fevers or chills, no chest pain or shortness of breath. Denies any blood in the stool. Denies nausea vomiting. AST elevated at 1200. ALT also elevated at 660, alk phos also elevated. LFTs trending down WBC also trended down Patient is tolerating clear liquid diet. Abd. pain resolved. Pt had BM. No n/v Review of Systems Review of Systems: All systems reviewed & are unremarkable except as noted in Subjective Physical Exam Physical Exam: GENERAL: The patient is of moderate build, not in acute distress. HEENT: Pupils equal, round and reactive to light.EOMI. Oral mucosa moist. NECK: No JVD, no neck masses. CARDIOVASCULAR: S1 and S2 heard. Regular rate and rhythm. No murmur, no gallop. RESPIRATORY: Normal AP diameter. No accessory muscle use. No wheezing, no crackles. ABDOMEN: Soft, bowel sounds present. Epigastric tenderness present. No rigidity. No distention. NEURO:Alert oriented, answers appropriately, speech fluent, no facial asymmetry, moves extremities EXTREMITIES: No edema, no erythema. Results & Data Results & Data ([facility] [place]) Vital Signs (Past 12 Hours) Vital Signs Temp Pulse Resp BP Pulse Ox O2 Del Method 05/20/22 07:19 36.9 C 68 16 134/84 94 Room Air 05/19/22 22:15 37.0 C 56 L 18 112/74 94 Room Air Laboratory Results 05/20/22 05/20/22 05/20/22 Range/Units 05:51 05:51 05:51 WBC 9.70 (4.8-10.8) K/ul RBC 4.47 (3.93-5.22) M/uL Hgb 13.0 (12.0-16.0) g/dl Hct 38.8 (34.1-44.9) % MCV 86.8 (80.0-100.0) fL MCH 29.1 (25.0-34.0) pg MCHC 33.5 (32.0-36.0) g/dL RDW Std Deviation 57.0 H (36.4-46.3) fL RDW Coeff of Mukul 18.0 H (11.5-14.5) % Plt Count 283 (130-400) K/uL MPV 10.4 (9.4-12.3) fL PT 26.2 H (9.0-12.0) Seconds INR 2.6 H (0.9-1.1) Sodium 140 (136-145) mmol/L Potassium 3.8 (3.5-5.1) mmol/L Chloride 106 (98-107) mmol/L Carbon Dioxide 29 (21-32) mmol/L Anion Gap 5 (3-11) BUN 5 L (6-23) mg/dl Creatinine 0.70 (0.6-1.2) mg/dl Est Cr Clr Drug Dosing 102.8 ml/min Est GFR ( Amer) 109.9 ml/min Est GFR (Non-Af Amer) 94.8 ml/min BUN/Creatinine Ratio 7.1 L (10-20) Glucose 81 (70-99(Fasting)) mg/dl Calcium 9.0 (8.5-10.1) mg/dl Total Bilirubin 0.6 (0.2-1.0) mg/dl AST 65 H (13-39) U/L ALT 158 H (7-52) U/L Alkaline Phosphatase 327 H (34-104) U/L Total Protein 6.2 (6.0-8.3) gm/dl Albumin 3.2 L (3.4-5.0) gm/dl Globulin 3.0 (2.5-4.0) gm/dl Albumin/Globulin Ratio 1.1 (0.9-2) Hepatitis A IgM Ab (NON-REACTIVE) Hep Bs Antigen (NON-REACTIVE) Hep Bs Ag Confirmation Hep B Core IgM Ab (NON-REACTIVE) Hepatitis C Ab (EIA) (NON-REACTIVE) Hep C Ab Signal/Cutoff (<1.00) 05/17/22 Range/Units 09:41 WBC (4.8-10.8) K/ul RBC (3.93-5.22) M/uL Hgb (12.0-16.0) g/dl Hct (34.1-44.9) % MCV (80.0-100.0) fL MCH (25.0-34.0) pg MCHC (32.0-36.0) g/dL RDW Std Deviation (36.4-46.3) fL RDW Coeff of Mukul (11.5-14.5) % Plt Count (130-400) K/uL MPV (9.4-12.3) fL PT (9.0-12.0) Seconds INR (0.9-1.1) Sodium (136-145) mmol/L Potassium (3.5-5.1) mmol/L Chloride (98-107) mmol/L Carbon Dioxide (21-32) mmol/L Anion Gap (3-11) BUN (6-23) mg/dl Creatinine (0.6-1.2) mg/dl Est Cr Clr Drug Dosing ml/min Est GFR ( Amer) ml/min Est GFR (Non-Af Amer) ml/min BUN/Creatinine Ratio (10-20) Glucose (70-99(Fasting)) mg/dl Calcium (8.5-10.1) mg/dl Total Bilirubin (0.2-1.0) mg/dl AST (13-39) U/L ALT (7-52) U/L Alkaline Phosphatase (34-104) U/L Total Protein (6.0-8.3) gm/dl Albumin (3.4-5.0) gm/dl Globulin (2.5-4.0) gm/dl Albumin/Globulin Ratio (0.9-2) Hepatitis A IgM Ab NON-REACTIVE (NON-REACTIVE) Hep Bs Antigen NON-REACTIVE (NON-REACTIVE) Hep Bs Ag Confirmation TNP Hep B Core IgM Ab NON-REACTIVE (NON-REACTIVE) Hepatitis C Ab (EIA) NON-REACTIVE (NON-REACTIVE) Hep C Ab Signal/Cutoff 0.02 (<1.00) Medications Administered Current Inpatient Medications Amitriptyline HCl (Amitriptyline Hcl 25 Mg Tab) 25 mg PO HS STEVEN Stop: 06/16/22 20:59 Last Admin: 05/19/22 20:53 Dose: 25 mg Bupropion HCl (Bupropion Xl 300 Mg Tabcr) 300 mg PO DAILY STEVEN Stop: 06/16/22 08:59 Last Admin: 05/19/22 10:09 Dose: 300 mg Calcium/Vitamin D (Calcium 600mg + Vit D 400 Iu Tab) 1 tab PO BID STEVEN Stop: 06/16/22 08:59 Last Admin: 05/19/22 20:54 Dose: 1 tab Diphenhydramine HCl (Diphenhydramine 50 Mg/Ml Vial) 25 mg IV Q6H PRN PRN Reason: Allergic Symptoms Stop: 06/16/22 02:36 Last Admin: 05/19/22 11:08 Dose: 25 mg Hydromorphone HCl (Hydromorphone Inj 0.5 Mg/0.5 Ml Syr) 0.5 mg IV Q3H PRN PRN Reason: Pain Stop: 05/31/22 02:36 Last Admin: 05/19/22 17:07 Dose: 0.5 mg Lactated Ringer's (Lr) 1,000 mls @ 150 mls/hr IV .Q6H40M STEVEN Stop: 06/16/22 02:36 Last Admin: 05/20/22 03:20 Dose: 150 mls/hr Piperacillin Sod/Tazobactam (Sod 3.375 gm/ Dextrose) 115 mls @ 28.75 mls/hr IV Q8H STEVEN; Protocol Stop: 05/20/22 14:59 Last Admin: 05/20/22 06:21 Dose: 28.8 mls/hr Metoclopramide HCl (Metoclopramide Hcl 5 Mg Tablet) 5 mg PO UD PRN PRN Reason: Migraine Headache Stop: 06/16/22 02:36 Last Admin: 05/18/22 07:20 Dose: 5 mg Multivitamins/Minerals (Cerovite Adv Formula Tab) 1 tab PO DAILY STEVEN Stop: 06/16/22 08:59 Last Admin: 05/19/22 10:09 Dose: 1 tab Ondansetron HCl (Ondansetron Inj 2 Mg/Ml 2 Ml Vial) 4 mg IV Q6H PRN PRN Reason: Nausea Stop: 06/16/22 02:36 Last Admin: 05/17/22 07:33 Dose: 4 mg Pantoprazole Sodium (Pantoprazole 40 Mg Tab) 40 mg PO HS STEVEN Stop: 06/16/22 20:59 Last Admin: 05/19/22 20:54 Dose: 40 mg Polyethylene Glycol (Polyethylene (Miralax) 17 Gm Pack) 17 gm PO DAILY PRN PRN Reason: Constipation Stop: 06/16/22 02:36 Polyethylene Glycol (Polyethylene (Miralax) 17 Gm Pack) 17 gm PO BID STEVEN Stop: 06/16/22 08:59 Last Admin: 05/19/22 20:53 Dose: 17 gm Prenat Multivit/Fluorescent Lighting Model Maker/Iron/Folic Ac ( Vitamin 1 Tab) 1 tab PO DAILY STEVEN Stop: 06/16/22 08:59 Last Admin: 05/19/22 10:09 Dose: 1 tab Simethicone (Simethicone 80 Mg Chew) 80 mg PO Q6H PRN PRN Reason: Gas or Constipation Stop: 06/17/22 10:12 Last Admin: 05/19/22 10:07 Dose: 80 mg Tizanidine HCl (Tizanidine Hcl 4 Mg Tablet) 10.5 - 12 mg PO HS STEVEN Stop: 06/16/22 20:59 Last Admin: 05/19/22 20:53 Dose: 12 mg Warfarin Sodium (Warfarin Sod 5 Mg Tab) 5 mg PO [email or web address] STEVEN Stop: 06/16/22 15:59 Last Admin: 05/19/22 15:24 Dose: 5 mg Warfarin Sodium (Warfarin Sod 2.5 Mg Tab) 2.5 mg PO [email or web address] [facility] Stop: 06/19/22 15:59 Zolpidem Tartrate (Zolpidem Tartrate 5 Mg Tab) 5 mg PO HS PRN PRN Reason: Sleep Last Admin: 05/19/22 20:52 Dose: 5 mg (1) Leukocytosis Leukocytosis type: unspecified Qualified Code(s): D72.829 - Elevated white bl ood cell count, unspecified
--- NOTE | 2022-05-20 10:11 | Discharge Summary ---
Date of Service May 20, 2022 Admission HPI Per Admitting Provider This is a 57-year-old female with past medical history significant for recurrent pulmonary emboli on Coumadin, history of gastric bypass surgery for obesity, post-gastric surgery syndrome, history of dysphagia, history of intestinal postoperative non-absorption, constipation, history of gastrocolic fistula, GERD, chronic pain, cervicalgia, chronic abdominal pain, history of chronic migraines, iron deficiency anemia, anxiety, agoraphobia, insomnia, depression, anxiety, presents with abdominal pain. The patient states since the morning, she is having epigastric abdominal pain radiating to the back from the left side, also has some nausea, pain was 7/10 in severity when she came in, currently 5/10, normal bowel movement today 3 times. No blood in the stools. Normal bladder movements. No fever, no chills, no chest pain, no shortness of breath, no headache. She has chronic migraines, but currently has no headache, no blurred visions, no earache, no runny nose, no sore throat, no cough, no fevers. The patient has some itching from Dilaudid and she is asking for Benadryl. Admission Exam Per Admitting Provider GENERAL: The patient is of moderate build, not in acute distress. VITAL SIGNS: Temperature 36.6, pulse 67, respiratory rate 18, blood pressure 125/73, oxygen 93% on room air. HEENT: Pupils equal, round and reactive to light. Oral mucosa moist. NECK: No JVD, no neck masses. CARDIOVASCULAR: S1 and S2 heard. Regular rate and rhythm. No murmur, no gallop. RESPIRATORY SYSTEM: Normal AP diameter. No accessory muscle use. No wheezing, no crackles. ABDOMEN: Soft, bowel sounds present. Epigastric tenderness present. Mild guarding. No rigidity. No distention. CENTRAL NERVOUS SYSTEM: Cranial nerves II-XII grossly intact, nonfocal. EXTREMITIES: No edema, no erythema. Principal Diagnosis Abdominal pain, elevated liver enzymes Discharge Exam GENERAL: The patient is of moderate build, not in acute distress. HEENT: Pupils equal, round and reactive to light.EOMI. Oral mucosa moist. NECK: No JVD, no neck masses. CARDIOVASCULAR: S1 and S2 heard. Regular rate and rhythm. No murmur, no gallop. RESPIRATORY: Normal AP diameter. No accessory muscle use. No wheezing, no crackles. ABDOMEN: Soft, bowel sounds present. Epigastric tenderness present. No rigidity. No distention. NEURO:Alert oriented, answers appropriately, speech fluent, no facial asymmetry, moves extremities EXTREMITIES: No edema, no erythema. Discharge Data Allergies Allergy/AdvReac Type Severity Reaction Status Date / Time Sulfa (Sulfonamide Allergy Intermediate Hives Verified 05/16/22 21:55 Antibiotics) latex Allergy Mild Rash Verified 05/16/22 21:55 ciprofloxacin [From Cipro] AdvReac Intermediate Vomiting Verified 05/16/22 21:55 morphine AdvReac Intermediate Hypotension Verified 05/16/22 21:55 Consultations 05/16/22 22:38 ED Decision to Admit Stat 05/17/22 08:00 Consult Gastroenterology Routine Ordered Studies 05/16/22 19:25 CT Abd and Pelvis [CT abd pelvis IV con only] Urgent FINDINGS: Lower chest: No acute abnormality. Liver: Unremarkable. No focal lesions are seen. Gallbladder and biliary tree: Patient is status post cholecystectomy. Physiologic prominence of the biliary ducts is noted. Pancreas: Calcifications about the pancreatic tail are again noted. Spleen: Patient is status post splenectomy. Adrenals: Stable nodularity of the bilateral adrenal glands. Kidneys and ureters: Unremarkable. Bladder: Unremarkable. Reproductive organs: Patient is status post hysterectomy. Bowel: A hiatal hernia is seen. Postoperative changes are seen about the stomach. The appendix is normal. Lymph nodes Retroperitoneal: Unremarkable. Pelvic: Unremarkable. Mesenteric: Unremarkable. Peritoneum: Normal. Vessels: Unremarkable. Abdominal wall: Unremarkable. Bones: Degenerative changes in the visualized spine. IMPRESSION: No acute abnormalities. Postsurgical changes are seen in the left upper quadrant including gastric surgery and splenectomy. In particular, no evidence of acute pancreatitis is seen. Changes of chronic pancreatitis are seen. 05/17/22 09:01 US liver Stat FINDINGS: Liver: The liver is normal in size and echotexture. There is no intrahepatic biliary ductal dilatation. The main portal vein is patent. A 1.9 cm well- circumscribed echogenic right lobe liver lesion is unchanged from prior studies and is typical for a hemangioma. Gallbladder: The gallbladder is surgically absent. The common bile duct measures up to 0.3 cm in diameter. Pancreas: Not visualized due to overlying bowel gas. Right kidney: Survey images of the right kidney demonstrate normal size and echotexture. There is no hydronephrosis. Ascites: None. IMPRESSION: 1. No acute sonographic abnormality is seen in the right upper quadrant noting status post cholecystectomy. 2. Nonvisualization of the pancreas. Hospital Course (1) Abdominal pain, epigastric: (2) Left sided abdominal pain: (3) Leukocytosis: (4) Elevated LFTs: Plan This is a 57-year-old female with history of pancreatitis, hx of gastric bypass, hx of alcohol abuse, who presented with abdominal pain. 1. Abdominal pain - initially believed possible acute on chronic pancreatitis. CT of abdomen and pelvis is unremarkable. Lipase is 203. IV Ringer 150 mL, IV Dilaudid p.r.n., IV antiemetics p.r.n. GI consulted LFTs significantly elevated AM after admission - AST 1200s, ALT 660 Liver US obtained - unremarkable Acute hepatitis panel ordered - negative Viral causes possible - ordered CMV EBV, HSV, Parvo - pending Patient was also recently started on eletriptan by her neurologist, however reports she did not take it in a while LFTs trending down Pain improved, overall feeling better 2. Leukocytosis. No obvious infection. Blood cultx - negat. for 48 hrs, UA negat. Started empiric zosyn - will DC now Cont. to monitor 3. History of recurrent pulmonary emboli on Coumadin. We will follow the PT/INR. 4. History of migraines, currently stable. Continue home medications. 5. Gastroesophageal reflux disease. On omeprazole. 6. Depression, anxiety. On buspirone and bupropion. 7. History of gastric bypass surgery followup with PCP, followup for any vitamin deficiencies. Total Time Total Time Spent Total Time Spent (In Minutes): 40 Discharge Plan Discharge Items Patient Disposition: Home - Self-Care Reason For Visit: ABDOMINAL PAIN Discharge Diagnosis: Abdominal pain, elevated liver enzymes Condition on Discharge: Fair Activity: Per Instructions section Non-emergency contact: Primary Care Provider Call non-emergency contact if: you have any medication questions and your symptoms worsen Follow-up/Referrals: Jessee Wisdom MD [Primary Care Provider] - Diet: Low Fat Addtl Attending Provider Instructions: Follow-up with your primary care doctor within 1 week. Recommend low-fat food for next couple of days, and advance your diet slowly as tolerated. Pending Studies at Discharge: Yes Studies:: final blood cultx CMV, EBV, HSV, parvovirus - pending Stand-Alone Forms: [facility], Smoking Cessation Medications and DC Order Prescriptions: New oxycodone 5 mg tablet 5 mg PO Q6H PRN (Reason: pain) Qty: 3 0RF Continued omeprazole 20 mg capsule,delayed release(DR/EC) 20 mg PO HS warfarin 5 mg tablet See Rx Instructions .ROUTE .COMPLEX Rx Instructions: 5 mg orally; TAKES 2.5 MG ON SUNDAYS & WEDNESDAYS, THEN TAKES 5 MG ALL OTHER DAYS. zolpidem 6.25 mg tablet,ext release multiphase 6.25 mg PO HS PRN (Reason: Sleep) tizanidine 4 mg tablet 12 mg PO HS Rx Instructions: TAKE 2.5 - 3 TABS AT BEDTIME. START WITH 2.5 TABS ( 10MG ). MAY INCREASE TO 3 TABS (12MG ) IF NEEDED. metoclopramide HCl 5 mg tablet 5 - 10 mg PO UD PRN (Reason: Migraine Headache) Rx Instructions: 1-2 TABS AT START OF HEADACHE FOR NAUSEA AND HEAD PAIN. MAY REPEAT ONCE AFTER 2 HOURS. MAY TAKE UP TO THREE DAYS WEEKLY. polyethylene glycol 3350 17 gram/dose powder 17 g PO BID Rx Instructions: TO EFFECT ONE STOOL PER DAY. 1+1 W/Iron 65 mg iron- 1 mg Tablet 1 tab PO DAILY acetaminophen [Tylenol Extra Strength] 500 mg Tablet 500 mg PO DIRECTED PRN (Reason: Pain) amitriptyline 25 mg tablet 25 mg PO HS ondansetron HCl 4 mg tablet 4 mg PO Q8 PRN (Reason: Nausea And Vomiting) calcium carbonate [Calcium 600] 600 mg calcium (1,500 mg) Tablet 600 mg PO BID Ocuvite Tablet 1 tab PO DAILY bupropion HCl 300 mg tablet extended release 24 hr 300 mg PO DAILY Discharge Orders: Discharge Order (Routine); Ordered 05/20/22 Ordered By: Hasmukh Alvarado Admission Data Admit Date/Time: 05/17/22 00:06 Attending Provider: Hasmukh Alvarado Admit Provider: Rahul Gibson Primary Care Provider: Jessee Wisdom Other Providers: Rahul Gibson ; Issa Alvarez
[2022-05-20] MEDS ORDERED: WARFARIN SOD 2.5 MG TAB PO SCH (16:00)
[2022-05-24 14:12] LABS: CMV IgG Antibody >10.00 U/mL; CMV IgM Antibody <30.00 AU/mL; Herpes Simplex Ab IgG-1 <0.90 index; Herpes Simplex Ab IgG-2 <0.90 index; Parvovirus IgM 0.1 (<0.9)
== END 2022-05-20 11:25 | disposition home or self-care (01) | DRG 392 ==
LOC: ED 18:48 → 3N 05-17 00:06

== ENCOUNTER 2023-09-01 17:14 | Inpatient (IN) ==
--- OUTSIDE RECORDS SUMMARY | 2023-09-01 17:18 | External Medical Summary | Summary of Care ---
Author Name Unknown Organization [facility] Address [address] [place] [address] Phone [phone] Care Team Providers Care Business Office Associate Name Role Phone Jessee Wisdom MD Primary Care Provider [phone] Reason for Visit * Reason Comments Dosage Adjustment Via Phone (anticoag Cl inic) No Show Encounter Details Date Type Department Care Team (Latest Contact Info) Description 07/29/2023 6:45 PM EST Anticoagulation Pharmacy Call Center [phone] [place] [address] [facility] [address] [facility] [place] [address] Recurrent pulmonary emboli (HCC)* Allergies Active Allergy Reactions Criticality Noted Date Comments Ciprofloxacin Nausea/vomiting 01/04/2023 Clindamycin Other (Please comment) 09/19/2020 Stomach pain Latex Rash 07/23/2006 Prolonged exposure only Morphine Other (Please comment) High 02/06/2020 Sulfa Antibiotics Hives 05/05/2004 documented as of this encounter (statuses as of 07/29/2023) Medications Medication Sig Dispensed Refills Start Date End Date Status acetaminophen (TYLENOL) 500 MG Tablet Take 1 Tablet by mouth 2 times a day as needed. 0 Active Ocuvite Adult Formula Oral Capsule Take by mouth. 0 Active Polyethylene Glycol 3350 17 GM/SCOOP Oral Powder (MiraLax) Take 17 g by mouth 2 times a day. One cap full in juice, to effect 1 stool per day. . 2550 g 2 03/14/2021 Active Calcium Carb-Cholecalciferol 600-400 MG-UNIT Oral Tablet (Calcium 600+D) Take by mouth 1 Tablet 2 times a day . 60 Tablet 5 09/28/2021 Active One-A-Day Womens 50+ Oral Tablet Take by mouth daily. 0 Active Galcanezumab-gnlm 120 MG/ML Subcutaneous Solution Auto-injector (Emgality) Inject 240 mg (two 1 mL injections) under the skin as a loading dose the first month 2 mL 0 09/25/2022 Active buPROPion HCl ER (XL) 300 MG Oral Tablet Extended Release 24 Hour (Wellbutrin XL)Indications:Depre ssion with anxiety TAKE ONE TABLET BY MOUTH EVERY MORNING 90 Tablet 2 12/17/2022 4 Active Amitriptyline HCl 50 MG Oral Tablet (Elavil)Indications: Cervicalgia,Depressi on with anxiety,Degeneration of cervical intervertebral disc TAKE ONE TABLET BY MOUTH AT BEDTIME EVERY DAY 90 Tablet 3 12/17/2022 4 Active busPIRone HCl 10 MG Oral Tablet (Buspar) TAKE ONE TABLET BY MOUTH EVERY MORNING AND AT BEDTIME 180 Tablet 3 11/06/2022 4 Active Metoclopramide HCl 5 MG Oral Tablet (Reglan) TAKE ONE TO TWO TABLETS BY MOUTH AT START OF HEADACHE FOR NAUSEA AND HEAD PAIN DIRECTED. TAKE UP TO THREE DAYS PER WEEK 90 Tablet 3 09/14/2022 4 Active Furosemide 20 MG Oral Tablet (Lasix)Indications:B ilateral lower extremity edema TAKE ONE TABLET BY MOUTH EVERY DAY IN THE MORNING 90 Tablet 3 09/13/2022 4 Active Omeprazole 20 MG Oral Capsule Delayed Release (PriLOSEC) TAKE 1 CAPSULE BY MOUTH 2 TIMES A DAY, 30 MINUTES BEFORE MORNING AND EVENING MEALS 180 Capsule 1 01/04/2023 4 Active tiZANidine HCl 4 MG Oral Tablet (Zanaflex) Take 2-3 tablets at bedtime. 90 Tablet 11 02/21/2023 Active Eletriptan Hydrobromide 40 MG Oral Tablet (Relpax)Indications: Intractable chronic migraine without aura and without status migrainosus,Cervical rose Take one half to one tablet by mouth at start of headache; may repeat once after two hours. Take up to 2 days a week. 27 Tablet 2 02/20/2023 Active Zolpidem Tartrate ER 12.5 MG Oral Tablet Extended ReleaseIndications:P rimary insomnia Take one tablet by mouth every night at bedtime 30 Tablet 5 03/19/2023 Active Pantoprazole Sodium 40 MG Oral Tablet Delayed Release (Protonix) Take 1 Tablet by mouth in the morning. 30 minutes before the first meal of the day. Do not crush, split or chew the tablet. 30 Tablet 5 03/22/2023 Active Additional Information Patient not taking.Reported on 07/23/2023 Fluticasone Propionate 50 MCG/ACT Nasal Suspension (Flonase)Indications :Dysfunction of right eustachian tube Administer 2 Sprays into each nostril in the morning. 16 g 2 05/06/2023 Active Linzess 290 MCG Oral Capsule (linaCLOtide) Take 1 Capsule by mouth daily before breakfast. 90 Capsule 3 05/23/2023 Active Ondansetron 4 MG Oral Tablet Disintegrating (Zofran)Indications: Intractable migraine with aura with status migrainosus TAKE 1-2 TABLETS BY MOUTH EVERY 8 HOURS NEEDED FOR RELIEF OF NAUSEA 270 Tablet 0 07/09/2023 Active DULoxetine HCl 30 MG Oral Capsule Delayed Release Particles (Cymbalta) TAKE 1 CAPSULE BY MOUTH EVERY MORNING. do not cut, crush or chew 90 Capsule 1 07/19/2023 Active Warfarin Sodium 5 MG Oral Tablet (Coumadin) TAKE ONE-HALF TO ONE TABLET BY MOUTH ONCE DAILY, OR DIRECTED BY COUMADIN CLINIC 90 Tablet 0 07/20/2023 5 Active documented as of this encounter (statuses as of 07/29/2023) Active Problems Problem Noted Date Diagnosed Date Bipolar disorder 07/23/2023 Migraine variant, intractable 05/13/2023 Migraine without status migrainosus, not intract able 07/10/2022 Other chronic pancreatitis 07/10/2022 Chronic pain of right ankle 04/27/2022 S/P cervical spinal fusion 04/20/2022 Gastroesophageal reflux disease without esophagi tis 08/24/2021 Recurrent major depressive disorder, in partial remission 02/09/2021 Recurrent pulmonary emboli 07/15/2015 Iron deficiency anemia 07/15/2015 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 Selenium deficiency 01/20/2015 Overview: SELENIUM(mcg/L) Zeeshan Dt/Tm Resulted Value Low High Status 01/19/15 6:54A 01/20/15 58* 63 160 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 Chronic abdominal pain 12/25/2014 Depression with anxiety 12/25/2014 Constipation 12/11/2013 care home current use of 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 1 08/19/2012 Intestinal postoperative nonabsorption 3 Gastric bypass status for obesity 02/19/2013 Dysphagia 10/27/2012 Degeneration of cervical intervertebral disc 03/2011 Insomnia 08/31/2009 Overview: ICD-10 update of inactive term 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 SHIN RESEARCH OTHER*[id number] 02/03/2006 Anxiety state 08/07/2005 AGORAPHOBIA 08/07/2005 Class 2 obesity without seri ous comorbidity with body mass index (BMI) of 39.0 to 39.9 in adult 04/22/2000 Overview: Per Obesity Taxonomy documented as of this encounter (statuses as of 07/29/2023) Resolved Problems Problem Noted Date Diagnosed Date Resolved Date Depression, unspecified 07/23/202306/26 Depression, unspecified 07/23/202306/26 Depression, unspecified 07/23/202306/26 Food insecurity 06/05/2021 08/08/2022 Overview: Per [facility] Protocol Intractable chronic migraine without aura and without status migrainosus 12/10/2016 05/13/2023 Gastric bypass status for obesity 08/18/2015 11/23/2016 UTI (urinary tract infection) 03/10/2015 11/23/2016 SIRS (systemic inflammatory response syndrome) 03/09/2015 08/24/2021 Nausea and vomiting 02/19/2015 03/09/20 15 Pulmonary embolism 02/19/2015 5 Severe malnutrition 01/24/2015 11/24/19 17 Severe malnutrition 01/24/2015 03/09/20 15 Vitamin A deficiency 01/20/2015 022 Overview: VITAMIN A(ug/L) Zeeshan Dt/Tm Resulted Value Low High Status 01/19/15 6:54A 01/20/15 112* 300 800 FINAL DUPLICATE Nausea with vomiting 12/25/2014 015 Protein-calorie malnutrition, moderate 12/25/2014 11/23/2016 Pulmonary embolism on right 12/23/2014 03/09/2015 S/P splenectomy 11/02/2014 11/23/2016 Gastric perforation 10/25/2014 11/27/19 15 Intra-abdominal abscess 08/15/201307/2016 Protein-calorie malnutrition 07/16/2013 11/23/2016 Gastric anastomotic leak 07/13/2013 Anticoagulation management encounter 06/18/2013 11/23/2016 Pleural effusion exudative 06/13/2013 0 11/26/2014 Hypoxia 06/13/2013 03/09/2015 Electrolyte and fluid disorder 06/12/2013 11/26/2014 Malnutrition 06/12/2013 03/09/2015 Pulmonary embolism, bilateral 06/11/2013 11/23/2016 Overview: Multiple bilateral segmental Abdominal pain 05/14/2013 03/10/2015 Respiratory failure, acute 05/14/2013 0 11/26/2014 Septic shock 05/14/2013 03/09/2015 Overview: ICD-10 update of inactive term Acute abdomen 05/14/2013 11/26/2014 Hypokalemia 05/14/2013 03/09/2015 Lactic acid acidosis 05/14/2013 015 Anemia 05/14/2013 04/20/2022 Abscess 05/14/2013 11/23/2016 Overview: Medial and Lateral aamir-splenic fluid collection s/p IR drainage and drain placement 05/18 Anastomotic stricture of gastrojejunostomy 05/10/2013 11/26/2014 Intractable chronic migraine without aura 02/27/2013 11/23/2016 Migraine with aura 03/31/2012 7 Chronic daily headache 03/31/201211/23 Cervicalgia 11/14/2009 07/10/2022 Obesity, morbid (more than 1 00 lbs over ideal weight or BMI > 40) 09/20/2009 11/26/2014 Overview: Per Obesity Taxonomy ICD-10 update of inactive term Obesity, morbid (more than 1 00 lbs over ideal weight or BMI > 40) 09/20/2009 07/21/2011 Overview: Per Obesity Taxonomy ICD-10 update of inactive term ADVANCE DIRECTIVE INFORMATION 07/18/2008 03/29/2019 Overview: No, Advance Directive brochure given to patient at prior appointment. Family history of GI malignancy 05/10/2008 11/23/2016 Morbid obesity, BMI not known 09/11/2005 09/20/2009 Overview: Per Obesity Taxonomy Major depressive disorder 11/08/2003 Overview: ICD-10 update of inactive term Excessive menstruation 11/08/200311/23 Polycystic ovaries 11/08/2003 7 documented as of this encounter (statuses as of 07/29/2023) Immunizations Name Administration Dates Next Due 08/07/2016, 6,11/29/2015,040 12/201411/05/2016 COVID-19 mRNA, LNP-s, No Pre serve, 2-Dose Series (Moderna) 10/13/2020,09/10/2020 H1N1 2009 Influenza, IM 07/29/2009 HIB PRP-T, 4 dose (ActHib) 10/25/2014 Meningococcal Conjugate Vacc ine (Menactra/Menveo) 10/25/2014 Pneumococcal Conjugate Vacc, 13 Valent (Prevnar) 10/25/2014 Pneumococcal Polysaccharide PPV23 (Pneumovax) 04/01/2020,02/21/2010 Seasonal Influenza Virus Vac cine, Unspecified Formulation 05/16/2018 Seasonal Influenza, PF, 6 M & above, IM , (FluLaval or Fluzone) 05/13/2023,04/20/2022,03/10/2021,02/23,02/27/2019 Seasonal Influenza, Quadriva lent, No Preserve, IM 04/30/2018,04/24/2016 Seasonal Influenza, Split, I IV3, With Preserve, Inj 05/22/2011,04/14/2010,03/15/2009,04/24 TD, Preservative Free 05/16/2018 TDAP (age 11 and older)(Adacel) 05/10/2008 05/10/2018 Zoster Vaccine Recombinant (Shingrix) 03/18/2020 ,05/16/2018 documented as of this encounter Social History Tobacco Use Types Packs/Day Years Used Date Smoking Tobacco: Former Cigarettes 0.5 3 Q uit: 02/13/2020 Passive Smoke Exposure: Past Smokeless Tobacco: Never Alcohol Use Standard Drinks/Week Comments Yes 0 (1 standard drink = 0.6 oz pur e alcohol) very rare PHQ-2 Answer Date Recorded PHQ Adult Total Score 7 09/21/2022 Hunger Vital Sign Answer Date Recorded Within the past 12 months, y ou worried that your food would run out before you got the money to buy more. Never true 07/10/19 23 Within the past 12 months, t he food you bought just didn't last and you didn't have money to get more. Never true 07/10/2022 Sex and Gender Information Value Date Recorded Sex Assigned at Female 02/27/2019 7:11 AM EDT Gender Identity Female 02/27/2019 7:11 AM EDT Sexual Orientation Straight 02/27/2019 7: 11 AM EDT Job Start Date Occupation Industry Not on file Not on file Not on file documented as of this encounter Functional Status Functional Status Response Date of Assess ment Are you deaf or do you have serious difficulty h earing? No 09/27/2021 Are you blind or do you have serious difficulty seeing, even when wearing glasses? No 09/27/2021 Do you have serious difficul ty walking or climbing stairs? (5 years old or older) Yes 09/27/2021 Do you have difficulty dress ing or bathing? (5 years old or older) Yes 09/27/2021 Because of a physical, menta l, or emotional condition, do you have difficulty doing errands alone such as visiting a doctor s office or shopping? (15 years old or older) No 09/28/19 22 Cognitive Status Response Date of Assessm ent Because of a physical, menta l, or emotional condition, do you have serious difficulty concentrating, remembering, or making decisions? (5 years old or older) Yes 09/27/2021 documented as of this encounter Progress Notes * Radha Espino PHARM Tech - 07/29/2023 8:06 AM EST Patient Phone Numbers [facility] reminding patient she is overdue for INR check. Will follow up in 4 weeks if result is not called in sooner. Thank you, Radha Espino Inspector Type [facility] Services ([facility]) 07/29/2023,8:06 AM documented in this encounter Plan of Treatment Upcoming Encounters Date Type Department Care Team (Late st Contact Info) Description 08/26/2023 6:45 PM EST Anticoagulation Pharmacy Call Center [phone] [place] [address] [facility] [address] [place] [address] 09/30/2023 1:00 PM EDT Nurse Only Ancillary Department, [place] [address] [facility] [address] [place], Nurse Annual Wellness [address] [place] [address] 10/15/2023 11:40 AM EDT Office Visit [facility] [address] [place] [address] Jessee Wisdom MD [address] [place] [address] 09/14/2024 10:40 AM EDT [facility] [address] [place] [address] Michelle Roth MD [address] [place] [address] Scheduled Procedures Name Priority Associated Diagnoses Date/Ti me COLONOSCOPY FLEXIBLE PROXIMA L DIAGNOSTIC Recall Family history of colonic polyps Health Maintenance Due Date Last Done Comments Meningitis B Vaccine (Bexsero/Trumemba) (1 of 4 - Increased Risk) 1973 MENINGOCOCCAL (MENACTRA/MENVEO) (2 - Risk 2-dose series) 12/20/2014 10/25/2014, 10/25/2014 Mammogram 03/29/2015 03/29/2014, 10/22, 09/03/2008 COVID-19 Vaccine ( - 2022- season) 2023 10/13/2020, 09/10/2020 Depression Screening 09/22/2023 09/21/2022 Lipid Panel 02/22/2025 02/23/2020, 08/24, 05/10/2008, Additional history exists Diabetes Screening 07/23/2026 07/23/2023, 1 07/13/2022, 08/23/2022, Additional history exists COLONOSCOPY-EVERY 5 YRS AGES 18-100 05/02/2027 05/02/2022, 05/02/2022, 02/14/2021, Additional history exists Pneumococcal Vaccine: Pediatrics (0 to 5 Years) and At-Risk Patients (6 to 64 Years) (4 - PPSV23 or PCV20) 01/20/2028 04/01/2020, 10/25/2014, 02/21/2010 DTaP,Tdap,and Td Vaccines (3 - Td or Tdap) 05/16/2028 05/16/2018, 05/10/2008 Zoster Vaccines Completed 03/18/2020, 05/16/2018 Influenza Vaccine (FLU shot) Completed , 04/20/2022, 03/10/2021, Additional history exists GARDASIL-HPV IMMUNIZATION SERIES Aged Out No longer eligible based on patient's age to complete this topic Hepatitis B Aged Out No longer eligi ble based on patient's age to complete this topic documented as of this encounter Medical Devices Implanted Type Area Metal Stamper Device Identifier Shelf Expiration Date Model / Serial / Lot Alloderm 2x4cm [id number] (8 Units) - [id number] - [id number] Implanted:Qty : 8 on 2015 by David Rosado MD at OR [facility] [place] Tissue - Human N/A: Esophagus [employer] 10/21/2016 [id number] / [id number] Stent Esoph Endomaxx [id number] - [id number] Implanted:Qty : 1 on 07/09/2013 at OR [facility] [place] N/A: Esophagus [employer] 07/09/2015 [id number] / / [id number] Stent Esoph Endomaxx [id number] - [id number] Implanted:Qty : 1 on 12/08/2013 at OR [facility] [place] [employer] 06/23/2016 [id number]-[id number] / / [id number] Stent Esoph Endomaxx [id number] - [id number] Implanted:Qty : 1 on 10/19/2014 by David Rosado MD at OR [facility] [place] N/A: Esophagus [employer] 05/23/2017 [id number]-[id number] / / [id number] Stent Wallflex 27 Mm X 22 Mm [id number] Implanted:Qty : 1 on 2015 by David Rosado MD at OR [facility] [place] N/A: Esophagus [employer] : ENDOSCOPY [id number] / / Stent Eso Gw [id number] - [id number] Implanted:Qty : 1 on 02/16/2015 by David Rosado MD at OR [facility] [place] N/A: Esophagus [employer] 04/23/2017 [id number] / / [id number] [facility] [id number] - [id number] Implanted:Qty : 1 on 09/27/2021 by Messi Doll MD at [facility] Right: Spine Cervical [employer] [id number] / / documented as of this encounter Visit Diagnoses Diagnosis Recurrent pulmonary emboli (HCC)- Primary Other pulmonary embolism and infarction documented in this encounter Advance Directives Latest Code Status on File Code Status Date Activated Date Inactivated Comments Full Code 09/27/2021 12:39 PM 09/28/2021 4:31 PM This o rder reflects the patients wishes and were consensually agreed upon. Question Answer Comments Discussion of Advance Directives occurred with: Not Discussed Code Status History Code Status Date Activated Date Inactivated Comments Full Code 06/15/2015 1:48 PM 06/15/2015 10:18 PM Question Answer Comments Discussion of Advance Directives occurred with: Not Discussed Full Code 03/09/2015 5:03 AM 03/15/2015 9:07 PM This order reflects the patients wishes and were consensually agreed upon. Question Answer Comments Discussion of Advance Directives occurred with: Patient Does the patient have a Living Will? No Does the patient have Health Care Power of Cigar Wrapper? No Full Code 01/12/2015 10:35 PM 01/21/2015 4:44 PM Question Answer Comments Discussion of Advance Directives occurred with: Not Discussed Full Code 12/22/2014 4:26 AM 12/25/2014 5:53 PM This or nu reflects the patients wishes and were consensually agreed upon. Question Answer Comments Discussion of Advance Directives occurred with: Patient Care Teams Business Office Associate Relationship Specialty Start Date End Date Jessee Wisdom MD [address] [place] [address] PCP - General Family Medicine 06/20/17 documented as of this encounter
--- OUTSIDE RECORDS SUMMARY | 2023-09-01 17:18 | External Medical Summary | Summary of Care ---
Author Name Unknown Organization [facility] Address [address] [place] [address] Phone [phone] Care Team Providers Care Screening Technician Name Role Phone Stephanie Poole MD Primary Care Provider [phone]- [phone] Reason for Visit * Reason Comments Medication Refill Encounter Details Date Type Department Care Team (Late st Contact Info) Description 07/20/2023 Refill [facility] [address] [place] [address] Stephanie Poole MD [address] [place] [address] Allergies Active Allergy Reactions Criticality Noted Date Comments Ciprofloxacin Nausea/vomiting 01/04/2023 Clindamycin Other (Please comment) 09/19/2020 Stomach pain Latex Rash 07/23/2006 Prolonged exposure only Morphine Other (Please comment) High 02/06/2020 Sulfa Antibiotics Hives 05/05/2004 documented as of this encounter (statuses as of 07/20/2023) Medications Medication Sig Dispensed Refills Start Date [...] . 2550 g 2 03/14/2021 Active Calcium Carb-Cholecalcifero l 600-400 MG-UNIT Oral Tablet (Calcium 600+D) Take [...] Oral Tablet Extended Release 24 Hour (Wellbutrin XL)Indications:Depr ession with anxiety TAKE ONE TABLET BY MOUTH EVERY MORNING 90 Tablet 2 12/17/2022 4 Active Amitriptyline HCl 50 MG Oral Tablet (Elavil)Indications :Cervicalgia,Depres juana with anxiety,Degeneratio n of cervical intervertebral disc TAKE ONE TABLET [...] 4 Active Furosemide 20 MG Oral Tablet (Lasix)Indications: Bilateral lower extremity edema TAKE ONE TABLET BY [...] Active Eletriptan Hydrobromide 40 MG Oral Tablet (Relpax)Indications :Intractable chronic migraine without aura and without status migrainosus,Cervica lgia Take one half to one tablet by mouth at start of headache; may repeat once after two hours. Take up to 2 days a week. 27 Tablet 2 02/20/2023 Active Zolpidem Tartrate ER 12.5 MG Oral Tablet Extended ReleaseIndications: Primary insomnia Take one tablet by mouth every night at bedtime 30 Tablet 5 03/19/2023 Active Pantoprazole Sodium 40 MG Oral Tablet Delayed Release (Protonix) Take 1 Tablet by mouth in the morning. 30 minutes before the first meal of the day. Do not crush, split or chew the tablet. 30 Tablet 5 03/22/2023 Active Fluticasone Propionate 50 MCG/ACT Nasal Suspension (Flonase)Indication s:Dysfunction of right eustachian tube Administer 2 Sprays into each nostril in the morning. 16 g 2 05/06/2023 Active Linzess 290 MCG Oral Capsule (linaCLOtide) Take 1 Capsule by mouth daily before breakfast. 90 Capsule 3 05/23/2023 Active Ondansetron 4 MG Oral Tablet Disintegrating (Zofran)Indications :Intractable migraine with aura with status migrainosus TAKE 1-2 TABLETS BY MOUTH EVERY 8 HOURS NEEDED FOR RELIEF OF NAUSEA 270 Tablet 0 07/09/2023 5 Active DULoxetine HCl 30 MG Oral Capsule Delayed Release Particles (Cymbalta) TAKE 1 CAPSULE BY MOUTH EVERY MORNING. do not cut, crush or chew 90 Capsule 1 07/19/2023 Active Warfarin Sodium 5 MG Oral Tablet (Coumadin) TAKE ONE-HALF TO ONE TABLET BY MOUTH ONCE DAILY, OR DIRECTED BY COUMADIN CLINIC 90 Tablet 0 07/20/2023 5 Active Warfarin Sodium 5 MG Oral Tablet (Coumadin) TAKE ONE-HALF TO ONE TABLET BY MOUTH ONCE DAILY, OR DIRECTED BY COUMADIN CLINIC 90 Tablet 1 12/20/2022 4 Discontinu ed(Refill) documented as of this encounter (statuses as of 07/20/2023) Active Problems Problem Noted Date Diagnosed Date Migraine variant, intractable 05/13/2023 Migraine without status [...] 12/25/2014 Depression with anxiety 12/25/2014 Constipation 12/11/2013 correction current use of 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 1 08/19/2012 Intestinal postoperative nonabsorption 3 Gastric bypass status for obesity 02/19/2013 Dysphagia 10/27/2012 Degeneration of cervical intervertebral disc 03/2011 Insomnia 08/31/2009 Overview: ICD-10 update of inactive term 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 SHIN RESEARCH OTHER*[id number] 02/03/2006 Anxiety state 08/07/2005 AGORAPHOBIA 08/07/2005 Class 2 obesity without seri ous comorbidity with body mass index (BMI) of 39.0 to 39.9 in adult 04/22/2000 Overview: Per Obesity Taxonomy documented as of this encounter (statuses as of 07/20/2023) Resolved Problems Problem Noted Date Diagnosed Date Resolved Date Food insecurity 06/05/2021 08/08/2022 Overview: Per Fresh [...] Gastric perforation 10/25/2014 11/27/19 15 Intra-abdominal abscess 08/15/2013 06/0 07/2016 Protein-calorie malnutrition 07/16/2013 11/23/2016 Gastric anastomotic leak [...] as of this encounter (statuses as of 07/20/2023) Immunizations Name Administration Dates Next Due 08/07/2016, 6,11/29/2015,12/201411/05/2016 COVID-19 mRNA, LNP-s, No Pre serve, 2-Dose [...] Former Cigarettes 0.5 3 Q uit: 02/13/2020 Smokeless Tobacco: Never Alcohol Use Standard Drinks/Week [...] Yes 09/27/2021 documented as of this encounter Miscellaneous Notes * Telephone Encounter - Julieta Hatfield RPh - 07/20/2023 3:47 PM EST Signed Prescriptions: Disp Refills Warfarin Sodium 5 MG Oral Tablet (Coumadin)90 Tab*0 Sig: TAKE ONE-HALF TO ONE TABLET BY MOUTH ONCE DAILY, OR DIRECTED BY COUMADIN CLINIC Authorizing Provider: STEPHANIE POOLE Ordering User: JULIETA HATFIELD * Telephone Encounter - Julieta Hatfield RPh - 07/20/2023 3:43 PM EST RX authorized. Zero refills given until upcoming OV. Also, pt has not had f/u with [facility] for INR check since February. Thank you, Julieta Hatfield, PharmD Clinical Pharmacist [facility]ized Clinical Pharmacy Services (formally Telepharmacy) [phone] 07/20/2023 3:45 PM documented in this encounter Plan of Treatment Upcoming Encounters Date Type Department Care Team (Late st Contact Info) Description 07/29/2023 6:45 PM EST Anticoagulation Pharmacy Call Center [phone] [facility] [place] [address] [facility], [facility] [address] [facility] [place] [address] 08/05/2023 2:00 PM EST Office [facility] [place] [address] [facility] [address] Stephanie Poole MD [address] [place] [facility] [place] [address] 09/30/2023 1:00 PM EDT Nurse Only Ancillary Department, [place] [address] [facility] [address] [place], Nurse Annual Wellness [address] [place] [facility] [place] [address] Scheduled Procedures Name Priority Associated Diagnoses Date/Ti me COLONOSCOPY FLEXIBLE PROXIMA L DIAGNOSTIC Recall Family history of colonic polyps Health Maintenance Due Date Last Done Comments Meningitis B Vaccine (Bexsero/Trumemba) (1 of 4 - Increased Risk) 1973 MENINGOCOCCAL (MENACTRA/MENVEO) (2 - Risk 2-dose series) 12/20/2014 10/25/2014, 10/25/2014 Mammogram 03/29/2015 03/29/2014, 10/22, 09/03/2008 COVID-19 Vaccine ( season) 2023 10/13/2020, 09/10/2020 Depression Screening 09/22/2023 09/21/2022 Lipid Panel 02/22/2025 02/23/2020, 08/24, 05/10/2008, Additional history exists Diabetes Screening 05/13/2026 05/13/2023, 0 08/23/2022, 07/10/2022, Additional history exists COLONOSCOPY-EVERY 5 YRS AGES [...] this encounter Medical Devices Implanted Type Area Independent Trader Device Identifier Shelf Expiration Date Model / Serial / Lot Alloderm 2x4cm [id number] (8 Units) - [id number] - [id number] Implanted:Qty : 8 on 2015 by David Rosado MD at [place] [facility] [place] Tissue - Human N/A: Esophagus Rollerscoot 10/21/2016 [id number] / [id number] / [id number] Stent Esoph Endomaxx [id number] - [id number] Implanted:Qty : 1 on 07/09/2013 at OR [facility] [place] N/A: Esophagus [employer] 07/09/2015 [id number]-[id number] / / [id number] Stent Esoph Endomaxx [id number] - [id number] Implanted:Qty : 1 on 12/08/2013 at OR [facility] [place] [employer] 06/23/2016 [id number]-[id number] / / [id number] Stent Esoph Endomaxx [id number] - [id number] Implanted:Qty : 1 on 10/19/2014 by David Rosado MD at OR [facility] [place] N/A: Esophagus [employer] 05/23/2017 [id number]-2315 / / [id number] Stent Wallflex 27 Mm X 22 Mm [id number] Implanted:Qty : 1 on 2015 by David Rosado MD at OR [facility] [place] N/A: Esophagus [employer] : ENDOSCOPY [id number] / / Stent Eso Gw [id number] - [id number] Implanted:Qty : 1 on 02/16/2015 by David Rosado MD at OR [facility] [place] N/A: Esophagus ALVEOLUS INC 04/23/2017 [id number] / / [id number] Plate Cslp 487.355 - [id number] Implanted:Qty : 1 on 09/27/2021 by Messi Doll MD at OR [facility] [place] Right: Spine Cervical SYNTHES 487.355 / / documented as of this encounter Advance Directives Latest Code Status [...] the patient have Health Care Power of Senior Net C Developer? No Full Code 01/12/2015 10:35 PM 01/21/2015 4:44 PM Question Answer Comments Discussion of Advance Directives occurred with: Not Discussed Full Code 12/22/2014 4:26 AM 12/25/2014 5:53 PM This or nu reflects the patients wishes and were consensually agreed upon. Question Answer Comments Discussion of Advance Directives occurred with: Patient Care Teams Screening Technician Relationship Specialty Start Date End Date Stephanie Poole MD [address] [place] [facility] [place] [address] PCP - General Family Medicine 06/20/17 documented as of this encounter
--- OUTSIDE RECORDS SUMMARY | 2023-09-01 17:18 | External Medical Summary ---
Author Name Unknown Address Unknown Organization [id number]:[place] [facility] [place] [facility] [address] [facility] [address] [place] [address] Laboratory Report Ordering Provider Test Date Status SCOTT PARKS 07/23/2023 10:11:28 Final Observation Date Value Abnormality Reference (Units ) Status WBC, Total 07/23/2023 10:11:28 9.73 4.00-10.80 (K/uL) Final RBC 07/23/2023 10:11:28 5.61 3.85-5.15 (M/uL) Final Hemoglobin 07/23/2023 10:11:28 16.3 Above high normal 12.0-15.3 (g/dL) Final HCT 07/23/2023 10:11:28 50.8 Above high normal 36.0-45.2 (%) Final MCV 07/23/2023 10:11:28 90.6 81.5-97.5 (fL) Final MCH 07/23/2023 10:11:28 29.1 27.0-34.0 (pg) Final MCHC 07/23/2023 10:11:28 32.1 32.0-36.0 (g/dL) Final RDW 07/23/2023 10:11:28 18.6 11.5-15.5 (%) Final Platelets 07/23/2023 10:11:28 400 140-400 (K/uL) Final MPV 07/23/2023 10:11:28 11.0 6.6-11.1 (fL) Final Nucleated erythrocytes/100 leukocytes [Ratio] in Blood by Automated count 07/23/2023 10:11:28 0 <=0 (/100 WBCs) Final Performing Location [facility] [place] [facility] [address] [facility] [place] [address]
--- OUTSIDE RECORDS SUMMARY | 2023-09-01 17:18 | External Medical Summary | Summary of Care ---
Author Name Unknown Organization [facility] Address [address] [place] [address] Phone [phone] Care Team Providers Care Instructor Psychiatric Aide Name Role Phone Stephanie Poole MD Primary Care Provider [phone]- [phone] Reason for Visit * Reason Comments Medication Refill Encounter Details Date Type Department Care Team (Late st Contact Info) Description 08/27/2023 Refill [facility] [address] [place] [address] Stephanie Poole MD [address] [place] [address] Bilateral lower extremity edema Allergies Active Allergy Reactions Criticality Noted Date Comments Ciprofloxacin Nausea/vomiting 01/04/2023 Clindamycin Other (Please comment) 09/19/2020 Stomach pain Latex Rash 07/23/2006 Prolonged exposure only Morphine Other (Please comment) High 02/06/2020 Sulfa Antibiotics Hives 05/05/2004 documented as of this encounter (statuses as of 08/28/2023) Medications Medication Sig Dispensed Refills Start Date [...] MOUTH EVERY MORNING 90 Tablet 2 12/17/2022 12/17/19 24 Active Amitriptyline HCl 50 MG Oral Tablet (Elavil)Indications :Cervicalgia,Depres juana with anxiety,Degeneratio n of cervical intervertebral disc TAKE ONE TABLET BY MOUTH AT BEDTIME EVERY DAY 90 Tablet 3 12/17/2022 12/17/19 24 Active busPIRone HCl 10 MG Oral Tablet (Buspar) TAKE ONE TABLET BY MOUTH EVERY MORNING AND AT BEDTIME 180 Tablet 3 11/06/2022 11/06/19 24 Active Metoclopramide HCl 5 MG Oral Tablet (Reglan) TAKE ONE TO TWO TABLETS BY MOUTH AT START OF HEADACHE FOR NAUSEA AND HEAD PAIN DIRECTED. TAKE UP TO THREE DAYS PER WEEK 90 Tablet 3 09/14/2022 09/14/19 24 Active Omeprazole 20 MG Oral Capsule Delayed Release (PriLOSEC) TAKE 1 CAPSULE BY MOUTH 2 TIMES A DAY, 30 MINUTES BEFORE MORNING AND EVENING MEALS 180 Capsule 1 01/04/2023 01/04/20 24 Active tiZANidine HCl 4 MG Oral Tablet [...] 07/23/2023 Fluticasone Propionate 50 MCG/ACT Nasal Suspension (Flonase)Indication s:Dysfunction of right eustachian tube Administer 2 Sprays into each nostril in the morning. 16 g 2 05/06/2023 Active Ondansetron 4 MG Oral Tablet Disintegrating (Zofran)Indications :Intractable migraine with aura with status migrainosus TAKE 1-2 TABLETS BY MOUTH EVERY 8 HOURS NEEDED FOR RELIEF OF NAUSEA 270 Tablet 0 07/09/2023 07/08/19 25 Active DULoxetine HCl 30 MG Oral Capsule Delayed Release Particles (Cymbalta) TAKE 1 CAPSULE BY MOUTH EVERY MORNING. do not cut, crush or chew 90 Capsule 1 07/19/2023 Active Warfarin Sodium 5 MG Oral Tablet (Coumadin) TAKE ONE-HALF TO ONE TABLET BY MOUTH ONCE DAILY, OR DIRECTED BY COUMADIN CLINIC 90 Tablet 0 07/20/2023 07/19/19 25 Active Linzess 290 MCG Oral Capsule (linaCLOtide) Take 1 Capsule by mouth daily before breakfast. 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 1 08/19/2012 Intestinal postoperative nonabsorption 3 Gastric bypass status for obesity 02/19/2013 Dysphagia 10/27/2012 Degeneration of cervical intervertebral disc 03/2011 Insomnia 08/31/2009 Overview: ICD-10 update of inactive term 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 SHIN RESEARCH OTHER*[id number] 02/03/2006 Anxiety state 08/07/2005 AGORAPHOBIA 08/07/2005 Class 2 obesity without seri ous comorbidity with body mass index (BMI) of 39.0 to 39.9 in adult 04/22/2000 Overview: Per Obesity Taxonomy documented as of this encounter (statuses as of 08/28/2023) Resolved Problems Problem Noted Date Diagnosed Date [...] as of this encounter (statuses as of 08/28/2023) Immunizations Name Administration Dates Next Due 08/07/2016, 6,11/29/2015,04/0 12/2014 11/05/2016 COVID-19 mRNA, LNP-s, No Pre serve, 2-Dose [...] Date Smoking Tobacco: Former Cigarettes 0.5 3 0 02/12/2017 - 02/13/2020 Passive Smoke Exposure: Past Smokeless Tobacco: [...] (15 years old or older) No 09/28/19 Cognitive Status Response Date of Assessm ent Because of a physical, menta l, or emotional condition, do you have serious difficulty concentrating, remembering, or making decisions? (5 years old or older) Yes 09/27/2021 documented as of this encounter Miscellaneous Notes * Telephone Encounter - Helga Chatman [facility] - 08/28/2023 12:09 PM EST Signed Prescriptions: Disp Refills Furosemide 20 MG Oral Tablet (Lasix) 90 Tab*1 Sig: TAKE ONE TABLET BY MOUTH EVERY DAY IN THE MORNINGAuthorizing Provider: STEPHANIE POOLE User: HELGA CHATMAN documented in this encounter Plan of Treatment Upcoming Encounters Date Type Department Care Team (Late st Contact Info) Description 08/28/2023 2:45 PM EST Imaging Radiology [address] [place] [address] 09/23/2023 6:45 PM EDT Anticoagulation Pharmacy Call Center [address] [facility] [place] [address] [facility] [address] [facility] [place] [address] 09/30/2023 1:00 PM EDT Nurse Only Ancillary Department, [place] [address] [place] [address] [place], Nurse Annual Wellness [address], [place] [phone] 10/15/2023 11:40 AM EDT Office Visit Family Practice, [place] [address] [place] [id number] Stephanie Poole MD [address], [place] [phone] 09/14/2024 10:40 AM EDT Telemedicine Neurology, [place] [address] [place], [place] [id number] Michelle Roth MD [address] [place] [address] Scheduled Procedures Name Priority Associated Diagnoses Date/Ti me COLONOSCOPY FLEXIBLE PROXIMA L DIAGNOSTIC Recall Family history of colonic polyps Health Maintenance Due Date Last Done Comments MENINGOCOCCAL (MENACTRA/MENVEO) (2 - Risk 2-dose series) [...] At-Risk Patients (6 to 64 Years) (4 of 4 - PPSV23 or PCV20) 01/20/2028 04/01/2020, 10/25/2014, [...] this encounter Medical Devices Implanted Type Area Rose Grading Supervisor Device Identifier Shelf Expiration Date Model / Serial / Lot Alloderm 2x4cm [id number] (8 Units) - [id number] - [id number] Implanted:Qty: 8 on 2015 by [place]ado [place] [facility] [place] - Human N/A: Esophagus [employer]arena 10/21/2016 [id number] / [id number] / [id number] Stent Esoph Endomaxx [id number] - [id number] Implanted:Qty: 1 on 07/09/2013 [place] [facility] [place] N/A: Esophagus [employer] 07/09/2015 KAIDEN-2315 / / [id number] Stent Esoph Endomaxx [id number] - [id number] Implanted:Qty: 1 on 12/08/2013 [place] [facility] [place] [employer] 06/23/2016 KAIDEN-1915 / / [id number] Stent Esoph Endomaxx [id number] - [id number] Implanted:Qty: 1 on 10/19/2014 by David Rosado MD [place] [facility] [place] N/A: Esophagus [employer] 05/23/2017 KAIDEN-2315 / / [id number] Stent Wallflex Esophogeal 28x1 - [id number] - [id number] Implanted:Qty: 1 on 2015 by David Rosado MD [place] [facility] [place] N/A: Esophagus [employer] : ENDOSCOPY 06/23/2016 [id number] / [id number] / [id number] Stent Wallflex 27 Mm X 22 Mm [id number] Implanted:Qty: 1 on 2015 by David Rosado MD [place] [facility] [place] N/A: Esophagus [employer] : ENDOSCOPY [id number] / / Stent Eso Gw [id number] - [id number] Implanted:Qty: 1 on 02/16/2015 by David Rosado MD [place] [facility] [place] N/A: Esophagus [employer]VE[employer] 04/23/2017 [id number] / / [id number] Screw Ti Locking 1.8mm 497.78 - [id number] Implanted:Qty: 8 on 09/27/2021 by Messi Doll MD [place] [facility] [place] Right: Spine Cervical SYNTHES 497.78 / / Screw Ti Expans 4.35mm 487.054 - [id number] Implanted:Qty: 8 on 09/27/2021 by Messi Doll MD [place] [facility] [place] Right: Spine Cervical SYNTHES 487.054 / / Plate Cslp 487.355 - [id number] Implanted:Qty: 1 on 09/27/2021 by Messi Doll MD [place] [facility] [place] Right: Spine Cervical SYNTHES 487.355 / / Cervical Vertigraft 5x7 - [id number] - [id number] Implanted:Qty: 1 on 09/27/2021 by Messi Doll MD [place] [facility] [place] Right: Spine Cervical LIFENET 01/23/2026 [id number] / [id number] / [id number] Cervical Vertigraft 6x8 - [id number] - [id number] Implanted:Qty: 1 on 09/27/2021 by Messi Doll MD [place] [facility] [place] Right: Spine Cervical LIFENET 11/10/2025 [id number] / [id number] / [id number] Cervical Vertigraft 5x7 - [id number] - [id number] Implanted:Qty: 1 on 09/27/2021 by Messi Doll MD [place] [facility] [place] Right: Spine Cervical LIFENET 04/09/2026 [id number] / [id number] / [id number] documented as of this encounter Visit Diagnoses Diagnosis Bilateral lower extremity edema Edema documented in this encounter Advance Directives Latest [...] the patient have Health Care Power of Medical Supervisor? No Full Code 01/12/2015 10:35 PM 01/21/2015 4:44 PM Question Answer Comments Discussion of Advance Directives occurred with: Not Discussed Full Code 12/22/2014 4:26 AM 12/25/2014 5:53 PM This or nu reflects the patients wishes and were consensually agreed upon. Question Answer Comments Discussion of Advance Directives occurred with: Patient Care Teams Instructor Psychiatric Aide Relationship Specialty Start Date End Date Stephanie Poole MD [address] [facility] [place] [address] PCP - General Family Medicine 06/20/17 documented as of this encounter
--- OUTSIDE RECORDS SUMMARY | 2023-09-01 17:18 | External Medical Summary ---
Author Name Unknown Address Unknown Organization K01:[place] [place] [address] [facility] [address] Laboratory Report Ordering Provider Test Date Status SCOTT PARKS 07/23/2023 10:11:28 Final Observation Date Value Abnormality Reference (Units ) Status BUN 07/23/2023 10:11:28 20 6-20 (mg/dL) Final Creatinine 07/23/2023 10:11:28 0.9 0.5-1.0 (mg/dL) Final Glomerular filtration rate/1.73 sq M.predicted [Volume Rate/Area] in Serum, Plasma or Blood by Creatinine-based formula (CKD-EPI) 07/23/2023 10:11:28 73 >=60 (mL/min) Final eGFR is calculated based on the CKD-EPI 2020 equation SODIUM 07/23/2023 10:11:28 139 135-146 (m mol/L) Final Potassium 07/23/2023 10:11:28 4.7 3.5-5.1 (m mol/L) Final Cl 07/23/2023 10:11:28 102 98-107 (mm ol/L) Final CO2 07/23/2023 10:11:28 25 22-32 (mmo l/L) Final Anion gap 07/23/2023 10:11:28 12 7-15 (mmol /L) Final Glucose 07/23/2023 10:11:28 77 70-120 (mg /dL) Final Albumin 07/23/2023 10:11:28 4.3 3.8-5.0 (g /dL) Final AST (Aspartate aminotransferase) 07/23/2023 10:11:28 92 Above high normal 10-35 (U/L) Final Result may be falsely elevat ed due to hemolysis. Alk Phos 07/23/2023 10:11:28 139 Above high normal 35 -130 (U/L) Final Bilirubin, Total 07/23/2023 10:11:28 0.4 <=1 .2 (mg/dL) Final Calcium 07/23/2023 10:11:28 9.3 8.4-10.2 ( mg/dL) Final Protein 07/23/2023 10:11:28 8.0 6.0-8.3 (g /dL) Final ALT (Alanine aminotransferase) 07/23/2023 10:11:28 88 Above high normal 10-35 (U/L) Final Performing Location [facility] [place] [address] [facility] [address]
--- OUTSIDE RECORDS SUMMARY | 2023-09-01 17:18 | External Medical Summary ---
Author Name Unknown Address Unknown Organization K01:LAB[facility]ORY [facility] [place] - [address] [place] [address] Laboratory Report Ordering Provider Test Date Status SCOTT PARKS 07/23/2023 10:11:28 Final Observation Date Value Abnormality Reference (Units ) Status SYNC LEUKOCYTES IN BLOOD BY AUTOMATED COUNT 07/23/2023 10:11:28 9.73 4.00-10.80 (K/uL) Final Segs 07/23/2023 10:11:28 59.1 40.0-75.0 (%) Final Lymphs % 07/23/2023 10:11:28 29.7 18.0-42.0 (%) Final Monos 07/23/2023 10:11:28 9.6 1.0-11.0 (%) Final Eosinophils 07/23/2023 10:11:28 0.6 0.0-6.0 (%) Final Basos 07/23/2023 10:11:28 0.8 0.0-2.0 (%) Final Immature Granulocyte, Percent 07/23/2023 10:11:28 0.2 0.0-2.0 (%) Final Absolute Segs 07/23/2023 10:11:28 5.75 1.80-7.70 (K/uL) Final Lymphs, absolute 07/23/2023 10:11:28 2.89 1.00-4.80 (K/ul) Final Monos, Abs 07/23/2023 10:11:28 0.93 0.00-1.10 (K/uL) Final Eos, Abs 07/23/2023 10:11:28 0.06 0.00-0.70 (K/uL) Final Basos, Abs 07/23/2023 10:11:28 0.08 0.00-0.20 (K/uL) Final Immature Granulocytes, Number 07/23/2023 10:11:28 0.02 0.00-0.20 (K/uL) Final Performing Location LABORATORY [facility] [place] - [address] [facility] [address]
--- OUTSIDE RECORDS SUMMARY | 2023-09-01 17:18 | External Medical Summary ---
Author Name Unknown Address Unknown Organization K01:LABORATORY [facility] [place] - [address] [place] [address] Laboratory Report Ordering Provider Test Date Status SCOTT PARKS 07/23/2023 10:11:28 Final Observation Date Value Abnormality Reference (Units ) Status Target cells [Presence] in Blood by Light microscopy 07/23/2023 10:11:28 Moderate Abnormal None Seen Final Variant lymphocytes [Presence] in Blood by Light microscopy 07/23/2023 10:11:28 Present Abnormal None Seen Final Giant platelets [Presence] in Blood by Light microscopy 07/23/2023 10:11:28 Present Abnormal None Seen Final Performing Location LABORATORY C - [address] [place] [address]
--- OUTSIDE RECORDS SUMMARY | 2023-09-01 17:18 | External Medical Summary | Summary of Care ---
Author Name Unknown Organization [facility] Address [address] [place] [address] Phone [phone] Care Team Providers Care Land Surveyor Name Role Phone Jessee Wisdom MD Primary Care Provider [phone] Reason for Visit * Reason Comments Acute Flu like symptomsTig htness in chestNo cough Encounter Details Date Type Department Care Team (Latest Contact Info) Description 07/23/2023 9:20 AM EST Office Visit [facility] [address] [place] [address] Shelly Castaneda MD [address], [place] [phone] Enterogastritis*; Chest tightness; Diarrhea, unspecified type; Nausea and vomiting, unspecified vomiting type; Gastroparesis; Recurrent pulmonary emboli (HCC); Encounter for screening mammogram for breast cancer; Anxiety state; Intestinal postoperative nonabsorption; Bipolar affective disorder, remission status unspecified (HCC); Depression with anxiety Allergies Active Allergy Reactions Criticality Noted Date Comments Ciprofloxacin Nausea/vomiting 01/04/2023 Clindamycin Other (Please comment) 09/19/2020 Stomach pain Latex Rash 07/23/2006 Prolonged exposure only Morphine Other (Please comment) High 02/06/2020 Sulfa Antibiotics Hives 05/05/2004 documented as of this encounter (statuses as of 07/23/2023) Medications Medication Sig Dispensed Refills Start Date [...] as of this encounter (statuses as of 07/23/2023) Active Problems Problem Noted Date Diagnosed Date [...] 12/25/2014 Depression with anxiety 12/25/2014 Constipation 12/11/2013 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 1 08/19/2012 Intestinal postoperative nonabsorption 3 Gastric bypass status for obesity 02/19/2013 Dysphagia 10/27/2012 Degeneration of cervical intervertebral disc 03/2011 Insomnia 08/31/2009 Overview: ICD-10 update of inactive term 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 SHIN RESEARCH OTHER*[id number] 02/03/2006 Anxiety state 08/07/2005 AGORAPHOBIA 08/07/2005 Class 2 obesity without seri ous comorbidity with body mass index (BMI) of 39.0 to 39.9 in adult 04/22/2000 Overview: Per Obesity Taxonomy documented as of this encounter (statuses as of 07/23/2023) Resolved Problems Problem Noted Date Diagnosed Date [...] as of this encounter (statuses as of 07/23/2023) Immunizations Name Administration Dates Next Due 08/07/2016, 6,11/29/2015,04/0 12/201411/05/2016 COVID-19 mRNA, LNP-s, No Pre serve, [...] Passive Smoke Exposure: Past Smokeless Tobacco: Never Tobacco Cessation:Counseling Given: Not Answered Alcohol Use Standard Drinks/Week Comments Yes 0 [...] on file documented as of this encounter Last Filed Vital Signs Vital Sign Reading Time Taken Comments Blood Pressure 118/72 07/23/2023 9:33 AM EST Pulse 83 07/23/2023 9:33 AM EST Temperature 35.7 C (96.2 F) 07/23/2023 9:33 AM ES T Respiratory Rate 16 07/23/2023 9:33 AM EST Oxygen Saturation 99% 07/23/2023 9:33 AM EST Inhaled Oxygen Concentration - - Weight 113.6 kg (250 lb 6.4 oz) 07/23/2023 9:33 AM EST Height - - Body Mass Index 40.42 03/01/2023 5:57 PM EDT documented in this encounter Functional Status Functional Status Response [...] as of this encounter Progress Notes * Shelly Castaneda MD - 07/23/2023 9:47 AM EST Subjective Ashley Morales is a 58 year old female. Chief Complaint Patient presents with Acute Flu like symptoms Tightness in chest No cough HPI: Here for acute enterogastritis , started one week ago Has diarrhea 6-7 times per day with increase N/, several times vomiting last week No fever, Some chest tightness B/L , palpitation But no cough, or other resp sx currently Was havng severe constipation with known gastroparesis , abd pain chronic , multiple stomach surgeries Had tried miralax, dulcolax, Milk of mag, enema, fiber supplement, colace, all OTC constipation which didn't help Started taking linzess one mo ago Was not covered by her insurance But paid coles for 3 mo supply and has been taking one mo which helped her to have twice daily BMs Still taking daily now Advised her ok to hold miralax due to current bowel changes But ok to keep linzess Hx of recurrent PE, on coumadin Known bipolar affective, depression anxiety , taking med PMH: Patient Active Problem List Diagnosis Code Class 2 obesity without serious comorbidity with body mass index (BMI) of 39.0 to 39.9 in adult E66.9, Z68.39 Anxiety state F41.1 AGORAPHOBIA F40.02 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 Insomnia G47.00 SHIN RESEARCH OTHER*[id number] Degeneration of cervical intervertebral disc M50.30 Dysphagia R13.10 Gastric bypass status for obesity Z98.84 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 Z79.01 Constipation K59.00 Chronic abdominal pain R10.9, G89.29 Depression with anxiety F41.8 Selenium deficiency E59 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 Ocuvite Adult Formula Oral Capsule Take by mouth. Polyethylene Glycol 3350 17 GM/SCOOP Oral Powder (MiraLax) Take 17 g by mouth 2 times a day. One cap full in juice, to effect 1 stool per day. . 2550 g 2 Calcium Carb-Cholecalciferol 600-400 MG-UNIT Oral Tablet (Calcium 600+D) Take by mouth 1 Tablet 2 times a day . 60 Tablet 5 One-A-Day Womens 50+ Oral Tablet Take by mouth daily. Galcanezumab-gnlm 120 MG/ML Subcutaneous Solution Auto-injector (Emgality) Inject 240 mg (two 1 mL injections) under the skin as a loading dose the first month 2 mL 0 buPROPion HCl ER (XL) 300 MG Oral Tablet Extended Release 24 Hour (Wellbutrin XL) TAKE ONE TABLET BY MOUTH EVERY MORNING 90 Tablet 2 Amitriptyline HCl 50 MG Oral Tablet (Elavil) TAKE ONE TABLET BY MOUTH AT BEDTIME EVERY DAY 90 Tablet 3 busPIRone HCl 10 MG Oral Tablet (Buspar) TAKE ONE TABLET BY MOUTH EVERY MORNING AND AT BEDTIME 180 Tablet 3 Metoclopramide HCl 5 MG Oral Tablet (Reglan) TAKE ONE TO TWO TABLETS BY MOUTH AT START OF HEADACHE FOR NAUSEA AND HEAD PAIN DIRECTED. TAKE UP TO THREE DAYS PER WEEK 90 Tablet 3 Furosemide 20 MG Oral Tablet (Lasix) TAKE ONE TABLET BY MOUTH EVERY DAY IN THE MORNING 90 Tablet 3 Omeprazole 20 MG Oral Capsule Delayed Release (PriLOSEC) TAKE 1 CAPSULE BY MOUTH 2 TIMES A DAY, 30 MINUTES BEFORE MORNING AND EVENING MEALS 180 Capsule 1 tiZANidine HCl 4 MG Oral Tablet (Zanaflex) Take 2-3 tablets at bedtime. 90 Tablet 11 Eletriptan Hydrobromide 40 MG Oral Tablet (Relpax) Take one half to one tablet by mouth at start ofheadache; may repeat once after two hours. Take up to 2 days a week. 27 Tablet 2 Zolpidem Tartrate ER 12.5 MG Oral Tablet Extended Release Take one tablet by mouth every night at bedtime 30 Tablet 5 Fluticasone Propionate 50 MCG/ACT Nasal Suspension (Flonase) Administer 2 Sprays into each nostril in the morning. 16 g 2 Linzess 290 MCG Oral Capsule (linaCLOtide) Take 1 Capsule by mouth daily before breakfast. 90 Capsule 3 Ondansetron 4 MG Oral Tablet Disintegrating (Zofran) TAKE 1-2 TABLETS BY MOUTH EVERY 8 HOURS NEEDED FOR RELIEF OF NAUSEA 270 Tablet 0 DULoxetine HCl 30 MG Oral Capsule Delayed Release Particles (Cymbalta) TAKE 1 CAPSULE BY MOUTH EVERY MORNING. do not cut, crush or chew 90 Capsule 1 Warfarin Sodium 5 MG Oral Tablet (Coumadin) TAKE ONE-HALF TO ONE TABLET BY MOUTH ONCE DAILY, OR DIRECTED BY COUMADIN CLINIC 90 Tablet 0 Pantoprazole Sodium 40 MG Oral Tablet Delayed Release (Protonix) Take 1 Tablet by mouth in the morning. 30 minutes before the first meal of the day. Do not crush, split or chew the tablet. (Patient not taking: Reported on 07/23/2023) 30 Tablet 5 No current facility-administered medications for this visit. Past Medical History: Diagnosis Date Depressive disorder, not elsewhere classified Dr. Chaparro Family history of colon cancer Migraine with aura Dr. Phan Obesity, BMI not known 04/22/2000 Other anxiety states Pulmonary embolism, bilateral (HCC) 06/11/2013 Multiple bilateral segmental Past Surgical History: Procedure Laterality Date ALLOGRAFT, STRUCTURAL, FOR SPINE SURGERY Right 09/27/2021 ALLOGRAFT FOR SPINE SURGERY STRUCTURAL performed by Messi Doll MD at [facility] ARTHRODESIS, ANT INTERBODY, BELOW C-2 Right 09/27/2021 ARTHRODESIS, ANT INTERBODY, BELOW C-2 performed by Messi Doll MD at [facility] ARTHRODESIS,ANT INTERBODY,BELOW C-2,EA ADDL Right 09/27/2021 ARTHRODESIS,ANT INTERBODY,BELOW C-2,EA ADDL performed by Messi Doll MD at [facility] COLONOSCOPY 08/02/2008 Repeat 5 yrs COLONOSCOPY, DIAGNOSTIC (RECTUM) 01/24/2016 normal, repeat 5 yrs/[facility] COLONOSCOPY, DIAGNOSTIC (RECTUM) 02/14/2021 poor prep, repeat 1 yr / COLONOSCOPY FLEXIBLE PROXIMAL DIAGNOSTIC performed by Charline Farooq MD at ENDOSCOPY [facility] COLONOSCOPY, DIAGNOSTIC (RECTUM) 05/02/2022 normal, repeat 5 yrs / COLONOSCOPY FLEXIBLE PROXIMAL DIAGNOSTIC performed by Charline Farooq MD at ENDOS[facility] COLORECTAL CANCER SCREEN; COLON 11/03/1999 Due 2004 EGD, FLEXIBLE, DIAGNOSTIC 09/26/2012 path shows mild inflammation of esophagus consistant with acid reflux negative for Barretts and mild irritation ofstomach negative for H Pylori EGD, FLEXIBLE, DIAGNOSTIC 12/08/2013 ESOPHAGOGASTRODUODENOSCOPY (EGD), FLEXIBLE, TRANSORAL, DIAGNOSTIC performed by Sabina Guillory III, MD at [facility] EGD, FLEXIBLE, DIAGNOSTIC 02/16/2014 ESOPHAGOGASTRODUODENOSCOPY (EGD), FLEXIBLE, TRANSORAL, DIAGNOSTIC performed by Sabina Guillory III, MD at END[facility] EGD, FLEXIBLE, DIAGNOSTIC 01/28/2014 Pre-existing esophageal stent- removal unsuccessful/inpt @ [facility] EGD, FLEXIBLE, DIAGNOSTIC N/A 05/19/2014 ESOPHAGOGASTRODUODENOSCOPY (EGD), FLEXIBLE, TRANSORAL, DIAGNOSTIC performed by Sabina Guillory III, MD at ENDOSCOPY [facility] EGD, FLEXIBLE, DIAGNOSTIC N/A 09/08/2014 ESOPHAGOGASTRODUODENOSCOPY (EGD), FLEXIBLE, TRANSORAL, DIAGNOSTIC performed by Sabina Guillory III, MD at [facility] EGD, FLEXIBLE, DIAGNOSTIC N/A 10/16/2014 ESOPHAGOGASTRODUODENOSCOPY (EGD), FLEXIBLE, TRANSORAL, DIAGNOSTIC performed by Sabina Guillory III, MD at [facility] EGD, FLEXIBLE, DIAGNOSTIC 11/23/2014 ESOPHAGOGASTRODUODENOSCOPY (EGD), FLEXIBLE, TRANSORAL, DIAGNOSTIC performed by Sabina Guillory MD at END[facility]COPY [facility] EGD, FLEXIBLE, DIAGNOSTIC 01/05/2015 ESOPHAGOGASTRODUODENOSCOPY (EGD), FLEXIBLE, TRANSORAL, DIAGNOSTIC performed by Sabina Guillory MD at [facility] EGD, FLEXIBLE, DIAGNOSTIC N/A 2015 ESOPHAGOGASTRODUODENOSCOPY (EGD), FLEXIBLE, TRANSORAL, DIAGNOSTIC performed by Sabina Guillory MD at [facility] EGD, FLEXIBLE, DIAGNOSTIC N/A 02/16/2015 ESOPHAGOGASTRODUODENOSCOPY (EGD), FLEXIBLE, TRANSORAL, DIAGNOSTIC performed by Sabina Guillory MD at [facility] EGD, FLEXIBLE, DIAGNOSTIC N/A 06/15/2015 ESOPHAGOGASTRODUODENOSCOPY (EGD), FLEXIBLE, TRANSORAL, DIAGNOSTIC performed by Sabina Guillory MD at [facility] EGD, FLEXIBLE, DIAGNOSTIC N/A 10/12/2015 ESOPHAGOGASTRODUODENOSCOPY (EGD), FLEXIBLE, TRANSORAL, DIAGNOSTIC performed by Sabina Guillory MD at ENDOSCOPY [facility] EGD, FLEXIBLE, DIAGNOSTIC 12/23/2018 normal/ESOPHAGOGASTRODUODENOSCOPY (EGD), FLEXIBLE, TRANSORAL, DIAGNOSTIC performed by Radha Montejo DO at ENDOSCOPY [facility] EGD, FLEXIBLE, DIAGNOSTIC 08/12/2020 normal / ESOPHAGOGASTRODUODENOSCOPY (EGD), FLEXIBLE, TRANSORAL, DIAGNOSTIC performed by Clarence Goins MD at ENDOSCOPY [facility] EGD, FLEXIBLE, INSERT WIRE, PASS DILATOR 03/07/2007 UPPER GI ENDOSCOPY WITH GUIDE WIRE DILATION performed by SABINA GUILLORY III at [facility] EGD, FLEXIBLE, REMOVE FOREIGN BODY 11/02/2013 ESOPHAGOGASTRODUODENOSCOPY (EGD), FLEXIBLE, TRANSORAL, WITH REMOVAL FOREIGN BODY performed by Sabina Guillory III, MD at OR [facility] EGD, FLEXIBLE, REMOVE FOREIGN BODY 02/04/2014 ESOPHAGOGASTRODUODENOSCOPY (EGD), FLEXIBLE, TRANSORAL, WITH REMOVAL FOREIGN BODY performed by Sabina Guillory III, MD at OR [facility] EGD, FLEXIBLE, REMOVE FOREIGN BODY 02/11/2014 ESOPHAGOGASTRODUODENOSCOPY (EGD), FLEXIBLE, TRANSORAL, WITH REMOVAL FOREIGN BODY performed by Sabina Guillory III, MD at [facility] EGD, FLEXIBLE, REMOVE FOREIGN BODY N/A 06/15/2015 ESOPHAGOGASTRODUODENOSCOPY (EGD), FLEXIBLE, TRANSORAL, WITH REMOVAL FOREIGN BODY performed by Sabina Guillory MD at [facility] EGD, FLEXIBLE, TRANSENDOSCOPIC DILATION <30MM N/A 2015 ESOPHAGOGASTRODUODENOSCOPY (EGD), FLEXIBLE, TRANSORAL, BALLOON DILATION LESS THAN 30MM performed bySabina Guillory MD at OR [facility] EGD, FLEXIBLE, TRANSENDOSCOPIC DILATION <30MM N/A 02/16/2015 ESOPHAGOGASTRODUODENOSCOPY (EGD), FLEXIBLE, TRANSORAL, BALLOON DILATION LESS THAN 30MM performed bySabina Guillory MD at OR [facility] EGD, FLEXIBLE, W/DILATE STRICTURES 02/11/2014 ESOPHAGOGASTRODUODENOSCOPY (EGD), FLEXIBLE, TRANSORAL, DILATION GASTRIC OUTLET performed by Yesenia Guillory III, MD at [facility] EGD, FLEXIBLE,ENDO STENT PLACEMENT N/A 10/19/2014 ESOPHAGOGASTRODUODENOSCOPY (EGD), FLEXIBLE, TRANSORAL: STENT PLACEMENT performed by Sabina Guillory III, MD at [facility] EGD, FLEXIBLE,ENDO STENT PLACEMENT N/A 2015 ESOPHAGOGASTRODUODENOSCOPY (EGD), FLEXIBLE, TRANSORAL: STENT PLACEMENT performed by Sabina Guillory MD at [facility] EGD, FLEXIBLE,ENDO STENT PLACEMENT N/A 02/16/2015 ESOPHAGOGASTRODUODENOSCOPY (EGD), FLEXIBLE, TRANSORAL: STENT PLACEMENT performed by Sabina Guillory MD at [facility] EGD, FLEXIBLE,W/ENDOSCOPIC US 02/12/2020 [place] / [facility] ESOPHAGOSCOPY, FLEXIBLE, TRANSENDOSCOPIC DILATION <30MM 07/09/2013 ESOPHAGOSCOPY BALLOON DILATION LESS THAN 30MM performed by Sabina Guillory III, MD at [facility] EXPLORATION OF ABDOMEN 05/14/2013 EXPLORATORY LAPAROTOMY performed by Sabina Guillory III, MD at [facility] EXPLORATION OF ABDOMEN N/A 10/16/2014 EXPLORATORY LAPAROTOMY performed by Sabina Guillory III, MD at [facility] EXPLORATION OF ABDOMEN N/A 10/19/2014 EXPLORATORY LAPAROTOMY performed by Sabina Guillory III, MD at [facility] GASTRIC REVISION FOR OBESITY 08/08/2006 Performed by SABINA GUILLORY III at [facility] Log [id number] INJECT DX/THER SUBSTANCE INTERLAMINAR CERVICAL/THORACIC W IMAGE GUIDE N/A 01/23/2021 INJECTION SPINE LUMBAR CERVICAL OR THORACIC performed by Adolfo Brooks DO at [facility] IOF CT GUIDED NEEDLE BIOPSY 05/18/2013 CT GUIDED NEEDLE ASPIRATION BIOPSY performed by Kenneth Greenwood PA-C at RADIOLOGY [facility] IR DRAINAGE ABSCESS/SPECIMEN W CATHETER PLACEMENT 07/14/2013 RADIOLOGICAL GUIDANCE FOR ABSCESS DRAINAGE performed by Kenneth Greenwood PA-C at RADIOLOGY [facility] IR DRAINAGE ABSCESS/SPECIMEN W CATHETER PLACEMENT 08/14/2013 RADIOLOGICAL GUIDANCE FOR ABSCESS DRAINAGE performed by Kenneth Greenwood PA-C at RADIOLOGY [facility] IR US GUIDED THORACENTESIS 05/20/2013 THORACENTESIS FOR ASPIRATION W/ IMAGING performed by Amy Curry MD at RADIOLOGY [facility] REMOVAL OF SPLEEN, TOTAL, EN BLOC N/A 10/16/2014 SPLENECTOMY TOTAL WITH OTHER PROCEDURE performed by aSbina Guillory III, MD at [facility] REMOVE GALLBLADDER REMOVE STOMACH, PARTIAL 05/07/2013 GASTRECTOMY PARTIAL WITH GASTROJEJUNOSTOMY performed by Sabina Guillory III, MD at [facility] REVISION OF ANKLE JOINT right SPINE FIX DEV, ANT, 4-7 SEG, INSERT Right 09/27/2021 ANTERIOR INSTRUMENTATION 4 TO 7 VERTEBRAL SEGMENTS performed by Messi Doll MD at OR [facility] TOTAL ABD HYSTERECTOMY W/WO REMOVAL OF TUBE(S) 10/02/2010 ABISAI/BSO WEDGE BIOPSY OF LIVER 08/08/2006 Performed by SABINA GUILLORY III at OR [facility] Log [id number] WEDGE BIOPSY OF LIVER 05/07/2013 BIOPSY OF LIVER WEDGE performed by Sabina Guillory III, MD at OR [facility] Review of patient's allergies indicates: Allergen Reactions Morphine Other (Please comment) Ciprofloxacin Nausea/vomiting Clindamycin Other (Please comment) Stomach pain Latex Rash Prolonged exposure only Sulfa Antibiotics Hives Family History Problem Relation Age of Onset Diabetes Mother Other (colon polyps) Mother Colon cancer Mother Diabetes Father Hemochromatosis Father Bradycardia Father Needed pacemaker Colon cancer Sister Colon polyps Brother Colon cancer Grandmother (Maternal) Colon cancer Grandfather (Maternal) colon cancer Cancer Uncle (Unspecified) colon Cancer Uncle (Unspecified) colon Colon cancer Aunt (Maternal) Family Status Relation Status Mo Alive Fa Alive Sis Alive Bro Alive Bro Alive MGMA (Not Specified) MGFA (Not Specified) Marichuy Alive Marichuy Alive Marichuy Alive UNCLE (Not Specified) UNCLE (Not Specified) MAUNT (Not Specified) Social History Socioeconomic History Marital status: Spouse name: William Number of children: 3 Years of education: Not on file Highest education level: Not on file Occupational History Comment: disability-depression/migraines Tobacco Use Smoking status: Former Packs/day: 0.50 Years: 3.00 Additional pack years: 0.00 Total pack years: 1.50 Types: Cigarettes Quit date: 02/13/2020 Years since quittin.4 Passive exposure: Past Smokeless tobacco: Never Vaping Use Vaping Use: Never used Substance and Sexual Activity Alcohol use: Yes Comment: very rare Drug use: No Sexual activity: Yes Partners: Male control/protection: Surgical Comment: had vasectomy Other Topics Concern Service Not Asked Blood Transfusions Not Asked Caffeine Concern Not Asked Occupational Exposure Not Asked Hobby Hazards Not Asked Sleep Concern Not Asked Stress Concern Not Asked Weight Concern Not Asked Special Diet Yes Comment: takes ca Back Care Not Asked Exercise Yes Comment: just started walking indoors Bike Helmet Not Asked Seat Belt Not Asked Self-Exams No Social History Narrative Unemployed due to migraines Social Determinants of Health Financial Resource Strain: Not on file Food Insecurity: No Food Insecurity (07/10/2022) Hunger Vital Sign Worried About Running Out of Food in the Last Year: Never true Ran Out of Food in the Last Year: Never true Transportation Needs: Not on file Physical Activity: Not on file Stress: Not on file Social Connections: Not on file Intimate Partner Violence: Not on file Housing Stability: Not on file Review of Systems Constitutional: Positive for activity change, appetite change and fatigue. Negative for chills, diaphoresis, fever and unexpected weight change. Respiratory: Positive for chest tightness. Negative for cough, shortness of breath and wheezing. Cardiovascular: Positive for chest pain (?rt sided , B/L) and palpitations. Negative for leg swelling. Gastrointestinal: Positive for diarrhea, nausea and vomiting. Negative for abdominal distention, abdominal pain, blood in stool and constipation. Neurological: Negative for dizziness and light-headedness. Psychiatric/Behavioral: Positive for dysphoric mood. Negative for agitation and behavioral problems. The patient is nervous/anxious. Objective BP 118/72 | Pulse 83 | Temp 35.7 C (96.2 F) (Infrared ) | Resp 16 | Wt 113.6 kg (250 lb 6.4 oz)| LMP 09/03/2010 | SpO2 99% | BMI 40.42 kg/m | BSA 2.3 m Physical Exam Constitutional: General: She is not in acute distress. Appearance: Normal appearance. She is obese. She is not ill-appearing, toxic- appearing or diaphoretic. HENT: Head: Normocephalic and atraumatic. Nose: Nose normal. Eyes: Extraocular Movements: Extraocular movements intact. Cardiovascular: Rate and Rhythm: Normal rate and regular rhythm. Pulses: Normal pulses. Heart sounds: Normal heart sounds. No murmur heard. Pulmonary: Effort: Pulmonary effort is normal. No respiratory distress. Breath sounds: Normal breath sounds. No stridor. No wheezing, rhonchi or rales. Chest: Chest wall: No tenderness. Abdominal: General: There is no distension. Palpations: Abdomen is soft. Tenderness: There is no abdominal tenderness. Musculoskeletal: Right lower leg: No edema. Left lower leg: No edema. Neurological: Mental Status: She is alert and oriented to person, place, and time. Psychiatric: Behavior: Behavior normal. ASSESSMENT/PLAN: Enterogastritis (Primary) Chest tightness - D-DIMER; Future; Expected date: 07/23/2023 - TROPONIN T, HIGH SENSITIVITY; Future; Expected date: 07/23/2023 - CBC WITH WBC DIFFERENTIAL; Future; Expected date: 07/23/2023 - COMPREHENSIVE METABOLIC PANEL; Future; Expected date: 07/23/2023 Diarrhea, unspecified type - XR ABDOMEN 1 VIEW - GASTROINTESTINAL PATHOGEN PANEL, STOOL; Future; Expected date: 07/23/2023 - REGIONAL PARASITE ANTIGEN SCREEN; Future; Expected date: 07/23/2023 - CLOSTRIDIUM DIFFICILE, PCR; Future; Expected date: 07/23/2023 Nausea and vomiting, unspecified vomiting type - XR ABDOMEN 1 VIEW - CBC WITH WBC DIFFERENTIAL; Future; Expected date: 07/23/2023 - COMPREHENSIVE METABOLIC PANEL; Future; Expected date: 07/23/2023 Gastroparesis Recurrent pulmonary emboli (HCC) Encounter for screening mammogram for breast cancer - MAMMOGRAM SCREENING SUZI BILATERAL; Future; Expected date: 07/23/2023 Anxiety state Intestinal postoperative nonabsorption Bipolar affective disorder, remission status unspecified (HCC) Depression with anxiety Check-out note: Xray and mammo F/u blood, stool tests KUB Linzess Clear broth and simple food for now Shelly Castaneda MD documented in this encounter Nursing Notes * Luann Parker LPN - 07/23/2023 9:30 AM EST Chief Complaint Patient presents with Acute Flu like symptoms Tightness in chest No cough documented in this encounter Plan of Treatment Upcoming Encounters Date Type Department Care Team (Latest Contact Info) Description 07/23/2023 10:40 AM EST Laboratory Laboratory, [place] [address] [place] [phone] [place], Laboratory [address] [place] [address] Chest tightness; Nausea and vomiting, unspecified vomiting type 07/29/2023 6:45 PM EST Anticoagulation Pharmacy Call Center [facility] [phone] [facility] [place] [id number] [facility], [facility] [address] [facility] [place] [address] 08/05/2023 2:00 PM EST Office Visit Family [facility], [place] [address] [place] [phone] Jessee Wisdom MD [address] [place] [address] 09/30/2023 1:00 PM EDT Nurse Only Ancillary Department, [place] [address] [place] [address] [place], Nurse [facility] [address] [place] [address] 09/14/2024 10:40 AM EDT Telemedicine Neurology, [place] [address] [place] [address] Michelle Roth MD [address] [place], [place] [id number] Pending Results Name Type Priority Associated Diagnoses Date /Time D-DIMER Lab Routine Chest tightness 07/23/2023 10:11 AM EST TROPONIN T, HIGH SENSITIVITY Lab Routine Chest tightness 07/23/2023 10:11 AM EST CBC WITH WBC DIFFERENTIAL Lab Routine Chest tightness Nausea and vomiting, unspecified vomiting type 07/23/2023 10:11 AM EST COMPREHENSIVE METABOLIC PANEL Lab Routine Chest tightness Nausea and vomiting, unspecified vomiting type 07/23/2023 10:11 AM EST Scheduled Orders Name Type Priority Associated Diagnoses Order Schedule D-DIMER Lab Routine Chest tightness Expected: 07/23/2023 (Approximate), Expires: 07/22/2024 TROPONIN T, HIGH SENSITIVITY Lab Routine Chest tightness Expected: 07/23/2023 (Approximate), Expires: 07/22/2024 XR ABDOMEN 1 VIEW Medical Imaging Routine Diarrhea, unspecified type Nausea and vomiting, unspecified vomiting type Ordered: 07/23/2023 GASTROINTESTINAL PATHOGEN PANEL, STOOL Lab Routine Diarrhea, unspecified type Expected: 07/23/2023 (Approximate), Expires: 07/22/2024 REGIONAL PARASITE ANTIGEN SCREEN Lab Routine Diarrhea, unspecified type Expected: 07/23/2023 (Approximate), Expires: 07/22/2024 CLOSTRIDIUM DIFFICILE, PCR Lab Routine Diarrhea, unspecified type Expected: 07/23/2023 (Approximate), Expires: 07/22/2024 CBC WITH WBC DIFFERENTIAL Lab Routine Chest tightness Nausea and vomiting, unspecified vomiting type Expected: 07/23/2023 (Approximate), Expires: 07/23/2024 COMPREHENSIVE METABOLIC PANEL Lab Routine Chest tightness Nausea and vomiting, unspecified vomiting type Expected: 07/23/2023 (Approximate), Expires: 07/22/2024 MAMMOGRAM SCREENING SUZI BILATERAL Medical Imaging Routine Encounter for screening mammogram for breast cancer Expected: 07/23/2023, Expires: 08/21/2024 Scheduled Procedures Name Priority Associated Diagnoses Date/Ti [...] this encounter Medical Devices Implanted Type Area Barrel Raiser Helper Device Identifier Shelf Expiration Date Model / Serial / Lot Alloderm 2x4cm [id number] (8 Units) - [id number] - [id number] Implanted:Qty : 8 on 2015 by Sabina Guillory MD at OR [facility] Tissue - Human N/A: Esophagus [employer] 10/21/2016 [id number] / [id number] / [id number] Stent Esoph Endomaxx [id number] - [id number] Implanted:Qty : 1 on 07/09/2013 at OR [facility] N/A: Esophagus [employer] 07/09/2015 KAIDEN-2315 / / [id number] Stent Esoph Endomaxx [id number] - [id number] Implanted:Qty : 1 on 12/08/2013 at OR [facility] [employer] 06/23/2016 KAIDEN-1915 / / [id number] Stent Esoph Endomaxx 91x958 - [id number] Implanted:Qty : 1 on 10/19/2014 by Sabina Guillory MD at OR [facility] N/A: Esophagus [employer] 05/23/2017 KAIDEN-2315 / / [id number] Stent Wallflex 27 Mm X 22 Mm [id number] Implanted:Qty : 1 on 2015 by Sabina Guillory MD at OR [facility] N/A: Esophagus [employer] : ENDOSCOPY [id number] / / Stent Eso Gw [id number] - [id number] Implanted:Qty : 1 on 02/16/2015 by Sabina Guillory MD at [facility] N/A: Esophagus [employer] 04/23/2017 [id number] / / [id number] [facility] 487.355 - [id number] Implanted:Qty : 1 on 09/27/2021 by Messi Doll MD at [facility] Right: Spine Cervical SYNTHES 487.355 / / documented as of this encounter Visit Diagnoses Diagnosis Enterogastritis- Primary Other and unspecified noninfectious gastroenteritis and colitis Chest tightness Other chest pain Diarrhea, unspecified type Nausea and vomiting, unspecified vomiting type Gastroparesis Recurrent pulmonary emboli (HCC) Other pulmonary embolism and infarction Encounter for screening mammogram for breast cancer Anxiety state Anxiety state, unspecified 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 No Full Code 01/12/2015 10:35 PM 01/21/2015 4:44 PM Question Answer Comments Discussion of Advance Directives occurred with: Not Discussed Full Code 12/22/2014 4:26 AM 12/25/2014 5:53 PM This or nu reflects the patients wishes and were consensually agreed upon. Question Answer Comments Discussion of Advance Directives occurred with: Patient Care Teams Land Surveyor Relationship Specialty Start Date End Date Jessee Wisdom MD [address] [place] [facility] [place] [address] PCP - General Family Medicine 06/20/17 documented as of this encounter"
--- OUTSIDE RECORDS SUMMARY | 2023-09-01 17:18 | External Medical Summary | Summary of Care ---
Author Name Unknown Organization [facility] Address [address] [place] [address] Phone [phone] Care Team Providers Care Patent Paralegal Name Role Phone Jessee Wisdom MD Primary Care Provider [phone]- [phone] Reason for Visit * Reason Comments Outpatient Testing Encounter Details Date Type Department Care Team (Late st Contact Info) Description 07/23/2023 10:40 AM EST Laboratory Laboratory, [place] [address] [place] [address] [place], [facility] [address] [place] [address] Chest tightness; Nausea and vomiting, unspecified vomiting type Allergies Active Allergy Reactions Criticality Noted Date [...] 12/25/2014 Depression with anxiety 12/25/2014 Constipation 12/11/2013 half-way current use of 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 1 08/19/2012 Intestinal postoperative nonabsorption 3 Gastric bypass status for obesity 02/19/2013 Dysphagia 10/27/2012 Degeneration of cervical intervertebral disc 03/2011 Insomnia 08/31/2009 Overview: ICD-10 update of inactive term 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 SHIN RESEARCH OTHER*[id number] 02/03/2006 Anxiety state 08/07/2005 AGORAPHOBIA 08/07/2005 Class [...] perforation 10/25/2014 11/27/19 15 Intra-abdominal abscess 08/15/2013 0607/2016 Protein-calorie malnutrition 07/16/2013 11/23/2016 Gastric anastomotic leak [...] Immunizations Name Administration Dates Next Due 08/07/2016, 6,11/29/2015,0412/201411/05/2016 COVID-19 mRNA, LNP-s, No Pre serve, 2-Dose [...] Yes 09/27/2021 documented as of this encounter Plan of Treatment Upcoming Encounters Date Type Department Care Team (Late st Contact Info) Description 07/29/2023 6:45 PM EST Anticoagulation Pharmacy Call Center [address] [place] [address] [facility] [address] [place] [address] 08/05/2023 2:00 PM EST Office Visit [facility], [address] [address] Jessee Wisdom MD [address] [place] [address] 09/30/2023 1:00 PM EDT Nurse Only Ancillary Department, [place] [address] [place] [address] [place], Nurse [facility] [address] [place] [address] 09/14/2024 10:40 AM EDT Telemedicine Neurology, [place] [address] [place], [place] [phone] Michelle Roth MD [address] [place], [place] [phone] Pending Results Name Type Priority Associated Diagnoses [...] unspecified vomiting type 07/23/2023 10:11 AM EST CBC Lab Routine Chest tightness Nausea and vomiting, unspecified vomiting type 07/23/2023 10:11 AM EST DIFFERENTIAL, AUTOMATED Lab Routine Chest tightness Nausea and vomiting, unspecified vomiting type 07/23/2023 10:11 AM EST Scheduled Procedures Name Priority Associated Diagnoses Date/Ti me COLONOSCOPY FLEXIBLE PROXIMA L DIAGNOSTIC Recall Family history of colonic polyps Health Maintenance Due Date Last Done Comments Meningitis B Vaccine (Bexsero/Trumemba) (1 of 4 - Increased Risk) 1973 MENINGOCOCCAL (MENACTRA/MENVEO) (2 - Risk 2-dose series) 12/20/2014 10/25/2014, 10/25/2014 Mammogram 03/29/2015 03/29/2014, 10/22, 09/03/2008 COVID-19 Vaccine (2022- season) 2023 10/13/2020, 09/10/2020 Depression Screening 09/22/2023 [...] this encounter Medical Devices Implanted Type Area Obstetrical Anesthesiologist Device Identifier Shelf Expiration Date Model / Serial / Lot Alloderm 2x4cm [id number] (8 Units) - [id number] - [id number] Implanted:Qty : 8 on 2015 by David Rosado MD [place] [facility] [place] - Human N/A: Esophagus [employer] 10/21/2016 [id number] / [id number] / [id number] Stent Esoph Endomaxx [id number] - [id number] Implanted:Qty : 1 on 07/09/2013 [place] [facility] N/A: Esophagus [employer] 07/09/2015 KAIDEN-2315 / / [id number] Stent Esoph Endomaxx [id number] - [id number] Implanted:Qty : 1 on 12/08/2013 at [place] [facility] [employer] 06/23/2016 KAIDEN-1915 / / [id number] Stent Esoph Endomaxx [id number] - [id number] Implanted:Qty : 1 on 10/19/2014 by David Rosado MD at [place] [facility] N/A: Esophagus [employer] 05/23/2017 KAIDEN-2315 / / [id number] Stent Wallflex 27 Mm X 22 Mm [id number] Implanted:Qty : 1 on 2015 by David Rosado MD at [place] [facility] N/A: Esophagus [employer] : ENDOSCOPY [id number] / / Stent Eso Gw [id number] - [id number] Implanted:Qty : 1 on 02/16/2015 by David Rosado MD at [place] [facility] N/A: Esophagus [employer] 04/23/2017 [id number] / / [id number] [facility] 487.355 - [id number] Implanted:Qty : 1 on 09/27/2021 by Messi Doll MD at [facility] Right: Spine Cervical SYNTHES 487.355 / / documented as of this encounter Visit Diagnoses Diagnosis Chest tightness Other chest pain Nausea and [...] the patient have Health Care Power of Arrow Point Attacher? No Full Code 01/12/2015 10:35 PM 01/21/2015 4:44 PM Question Answer Comments Discussion of Advance Directives occurred with: Not Discussed Full Code 12/22/2014 4:26 AM 12/25/2014 5:53 PM This or nu reflects the patients wishes and were consensually agreed upon. Question Answer Comments Discussion of Advance Directives occurred with: Patient Care Teams Patent Paralegal Relationship Specialty Start Date End Date Jessee Wisdom MD [address] [place] [address] PCP - General Family Medicine 06/20/17 documented as of this encounter
--- OUTSIDE RECORDS SUMMARY | 2023-09-01 17:18 | External Medical Summary | Summary of Care ---
Author Name Unknown Organization [facility] Address [address] [place] [address] Phone [phone] Care Team Providers Care Cable Splicer Name Role Phone Jessee Wisdom MD Primary Care Provider +1- [phone] Reason for Visit * Reason Comments Medication Refill Encounter Details Date Type Department Care Team (Late st Contact Info) Description 08/27/2023 Refill [facility] [address], [place] [phone] Michelle Roth MD [address] [place] [address] Allergies Active Allergy Reactions Criticality Noted Date Comments Ciprofloxacin Nausea/vomiting 01/04/2023 Clindamycin Other (Please comment) 09/19/2020 Stomach pain Latex Rash 07/23/2006 Prolonged exposure only Morphine Other (Please comment) High 02/06/2020 Sulfa Antibiotics Hives 05/05/2004 documented as of this encounter (statuses as of 08/30/2023) Medications Medication Sig Dispensed Refills Start Date [...] 180 Tablet 3 11/06/2022 11/06/19 24 Active Omeprazole 20 MG Oral Capsule [...] before breakfast. 90 Capsule 3 08/19/2023 Active Metoclopramide HCl 5 MG Oral Tablet (Reglan) TAKE ONE TO TWO TABLETS BY MOUTH AT START OF HEADACHE FOR NAUSEA AND HEAD PAIN DIRECTED. TAKE UP TO THREE DAYS PER WEEK 90 Tablet 3 08/30/2023 08/30/19 25 Active Metoclopramide HCl 5 MG Oral Tablet (Reglan) TAKE ONE TO TWO TABLETS BY MOUTH AT START OF HEADACHE FOR NAUSEA AND HEAD PAIN DIRECTED. 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 SHIN RESEARCH OTHER*[id number] 02/03/2006 Anxiety state 08/07/2005 AGORAPHOBIA 08/07/2005 Class 2 obesity without seri ous comorbidity with body mass index (BMI) of 39.0 to 39.9 in adult 04/22/2000 Overview: Per Obesity Taxonomy documented as of this encounter (statuses as of 08/30/2023) Resolved Problems Problem Noted Date Diagnosed Date [...] as of this encounter (statuses as of 08/30/2023) Immunizations Name Administration Dates Next Due 08/07/2016, [...] encounter Miscellaneous Notes * Telephone Encounter - Michelle Roth MD - 08/30/2023 2:42 PM ESTSigned Prescriptions: Disp Refills Metoclopramide HCl 5 MG Oral Tablet (Lynn*90 Tab*3 Sig: TAKE ONE TO TWO TABLETS BY MOUTH AT START OF HEADACHE FOR NAUSEA AND HEAD PAIN DIRECTED. TAKE UP TO THREE DAYS PER WEEK Authorizing Provider: MICHELLE ROTH * Telephone Encounter - Yuliya Scott [facility] - 08/30/2023 8:57 AM ESTPending Prescriptions: Disp Refills Metoclopramide HCl 5 MG Oral Tablet (Lynn*90 Tab*3 Sig: TAKE ONE TO TWO TABLETS BY MOUTH AT START OF HEADACHE FOR NAUSEA AND HEAD PAIN DIRECTED. TAKE UP TO THREE DAYS PER WEEK * Telephone Encounter - Placido Brown LPN - 08/29/2023 1:16 PM ESTPending Prescriptions: Disp Refills Metoclopramide HCl 5 MG Oral Tablet (Lynn*90 Tab*3 Sig: TAKE ONE TO TWO TABLETS BY MOUTH AT START OF HEADACHE FOR NAUSEA AND HEAD PAIN DIRECTED. TAKE UP TO THREE DAYS PER WEEK * Telephone Encounter - Anisa Emery, student support services director - 08/29/2023 12:30 PM EST Patient is up to date for office visits. Pending Prescriptions: Disp Refills Metoclopramide HCl 5 MG Oral Tablet (Regl*90 Tab*3 Sig: TAKE ONE TO TWO TABLETS BY MOUTH AT START OF HEADACHE FOR NAUSEA AND HEAD PAIN DIRECTED. TAKE UP TO THREE DAYS PER WEEK Last Visit: 02/27/2013 (in office), Visit date not found (telemedicine) Next Visit: 09/14/2024 If no future appointments scheduled, and last appointment is greater than a year ago, please schedule patient for a follow-up appointment Last date the medication was ordered: 09/14/2022 Pharmacy: [facility] Is this request for a controlled substance?No it is not controlled. Urine Drug Screen: Results for orders placed or performed in visit on 07/10/22 TOXICOLOGY, URINE SCREEN W/ CONFIRMATION Result Value Amphetamines Screen, U Negative Benzodiazepines Screen, U Negative Cannabinoids Screen, U Negative Cocaine Metabolite Screen, U Negative Fentanyl Screen, U Negative Hydrocodone Screen, U Negative Methadone Metabolite Screen, U Negative Morphine/Codeine Screen, U Negative Oxycodone Screen, U Negative Narrative Cutoff Concentrations: Drug Level Amphetamines 500 ng/mL Benzodiazepines 100 ng/mL Cannabinoids 50 ng/mL Cocaine Metabolite 150 ng/mL Fentanyl 1 ng/mL Hydrocodone / Hydromorphone 300 ng/mL Methadone Metabolite 100 ng/mL Morphine / Codeine 300 ng/mL Oxycodone / Oxymorphone 100 ng/mL Screening results are presumptive and can only be used for medical purposes. Positive screening results are reflexed to confirmatory testing. *Note: Due to a large number of results and/or encounters for the requested time period, some results have not been displayed. A complete set of results can be found in Results Review. Patient Phone Numbers Labs: Lab Results Component Value Date/Time CREAT 0.9 07/23/2023 10:11 AM CREAT 0.9 07/11/2020 09:40 AM POTASSIUM 4.7 07/23/2023 10:11 AM POTASSIUM 4.7 07/11/2020 09:40 AM TSH 2.51 05/13/2023 12:40 PM TSH 2.14 03/18/2020 11:11 AM LDLCALC 55 02/23/2020 10:08 AM LDLDIRECT 132 (H) 08/15/2005 03:23 PM ALT 88 (H) 07/23/2023 10:11 AM ALT 76 (H) 07/11/2020 09:40 AM HGBA1C 5.6 07/10/2022 11:30 AM HGBA1C 5.1 10/09/2018 02:39 PM documented in this encounter Plan of Treatment Upcoming Encounters Date Type Department Care Team (Late st Contact Info) Description 09/23/2023 6:45 PM EDT Anticoagulation Pharmacy Call Center [address] [facility] [place] [address] [facility] [address] [facility] [address] 09/30/2023 1:00 PM EDT Nurse Only Ancillary Department, [address] [address] [place], Nurse Annual Wellness [facility] [place] [address] 10/15/2023 11:40 AM EDT Office Visit [facility] [address] [place] [address] Jessee Wisdom MD [address] [place], [place] [address] 09/14/2024 10:40 AM EDT Telemedicine Neurology, [place] [address] [place] [address] Michelle Roth MD [address] [place] [address] Scheduled Procedures Name Priority Associated [...] this encounter Medical Devices Implanted Type Area Contaminated Land Consultant Device Identifier Shelf Expiration Date Model / Serial / Lot Alloderm 2x4cm [id number] (8 Units) - [id number] - [id number] Implanted:Qty: 8 on 2015 by David Rosado MD at [place] [facility] Tissue - Human N/A: Esophagus [employer] 10/21/2016 [id number] / [id number] / [id number] Stent Esoph Endomaxx [id number] - [id number] Implanted:Qty: 1 on 07/09/2013 at OR [facility] N/A: Esophagus [employer] 07/09/2015 KAIDEN-2315 / / [id number] Stent Esoph Endomaxx [id number] - [id number] Implanted:Qty: 1 on 12/08/2013 at OR [facility] [employer] 06/23/2016 KAIDEN-1915 / / [id number] Stent Esoph Endomaxx [id number] - [id number] Implanted:Qty: 1 on 10/19/2014 by David Rosado MD at OR [facility] N/A: Esophagus [employer] 05/23/2017 KAIDEN-2315 / / [id number] Stent Wallflex Esophogeal 28x1 - [id number] - [id number] Implanted:Qty: 1 on 2015 by David Rosado MD at OR [facility] N/A: Esophagus [employer] : ENDOSCOPY 06/23/2016 [id number] / [id number] / [id number] Stent Wallflex 27 Mm X 22 Mm [id number] Implanted:Qty: 1 on 2015 by David Rosado MD at OR [facility] N/A: Esophagus [employer] : ENDOSCOPY [id number] / / Stent Eso Gw [id number] - [id number] Implanted:Qty: 1 on 02/16/2015 by David Rosado MD at OR [facility] N/A: Esophagus [employer] 04/23/2017 [id number] / / [id number] Screw Ti Locking 1.8mm 497.78 - [id number] Implanted:Qty: 8 on 09/27/2021 by Messi Doll MD at OR [facility] Right: Spine Cervical SYNTHES 497.78 / / Screw Ti Expans 4.35mm 487.054 - [id number] Implanted:Qty: 8 on 09/27/2021 by Messi Doll MD at OR [facility] Right: Spine Cervical SYNTHES 487.054 / / Plate Cslp 487.355 - [id number] Implanted:Qty: 1 on 09/27/2021 by Messi Doll MD at OR [facility] Right: Spine Cervical SYNTHES 487.355 / / Cervical Vertigraft 5x7 - [id number] - [id number] Implanted:Qty: 1 on 09/27/2021 by Messi Doll MD at OR [facility] Right: Spine Cervical [employer] 01/23/2026 [id number] / [id number] / [id number] Cervical Vertigraft 6x8 - [id number] - [id number] Implanted:Qty: 1 on 09/27/2021 by Messi Doll MD at OR [facility] Right: Spine Cervical [employer] 11/10/2025 [id number] / [id number] / [id number] Cervical Vertigraft 5x7 - [id number] - [id number] Implanted:Qty: 1 on 09/27/2021 by Messi Doll MD at OR [facility] Right: Spine Cervical [employer] 04/09/2026 [id number] / [id number] / [id number] documented as of this encounter Advance Directives [...] the patient have Health Care Power of Ice Cream Server? No Full Code 01/12/2015 10:35 PM 01/21/2015 4:44 PM Question Answer Comments Discussion of Advance Directives occurred with: Not Discussed Full Code 12/22/2014 4:26 AM 12/25/2014 5:53 PM This or nu reflects the patients wishes and were consensually agreed upon. Question Answer Comments Discussion of Advance Directives occurred with: Patient Care Teams Cable Splicer Relationship Specialty Start Date End Date Jessee Wisdom MD [address] [place] [facility] [place] [address] PCP - General Family Medicine 06/20/17 documented as of this encounter
--- OUTSIDE RECORDS SUMMARY | 2023-09-01 17:18 | External Medical Summary ---
Author Name Unknown Address Unknown Organization K01:LABORATORY [address] [place] [address] Laboratory Report Ordering Provider Test Date Status SCOTT PARKS 07/23/2023 10:11:28 Final Rheumatoid factor at a level above 50 IU/mL may lead to an overestimation of the D-dimer level. A normal D-dimer result (<0.50 ug/mL FEU) has a negative predictive value of approximately 95% for the exclusion of acute pulmonary embolism (PE) or deep vein thrombosis when there is low or moderate pretest PE probability. Increased D-dimer values are abnormal but do not indicate a specific disease state and the D-dimer increase does not definitively correlate with clinical severity of disease. Observation Date Value Abnormality Reference (Units ) Status Fibrin D-dimer FEU [Mass/volume] in Platelet poor plasma by Immunoassay 07/23/2023 10:11:28 <0.27 <0.50 (ug/mL FEU) Final Performing Location LABORATORY [facility] [place] - [facility] [place] [address]
--- OUTSIDE RECORDS SUMMARY | 2023-09-01 17:18 | External Medical Summary ---
Author Name Unknown Address Unknown Organization K01[facility] [place] [address] [place] [address] Laboratory Report Ordering Provider Test Date Status ИВАНJOSE RAMONSCOTT 07/23/2023 10:11:28 Final Observation Date Value Abnormality Reference (Units ) Status Troponin T 07/23/2023 10:11:28 10 <=14 (ng/ L) Final Performing Location [facility] [place] [address] [place] [address]
--- OUTSIDE RECORDS SUMMARY | 2023-09-01 17:18 | External Medical Summary | Summary of Care ---
Author Name Unknown Organization [facility] Address [address] [place] [address] Phone [phone] Care Team Providers Care Computed Tomography Technician Name Role Phone Jessee Wisdom MD Primary Care Provider +1- [phone] Reason for Visit * Reason Comments Dosage Adjustment Via Phone (anticoag Cl inic) Encounter Details Date Type Department Care Team (Latest Contact Info) Description 08/26/2023 6:45 PM EST Anticoagulation Pharmacy Call Center [phone] [place] [address] [facility] 58 [address] [facility] [place] [address] Anticoagulation management encounter* Allergies Active Allergy Reactions Criticality Noted Date Comments Ciprofloxacin Nausea/vomiting 01/04/2023 Clindamycin Other (Please comment) 09/19/2020 Stomach pain Latex Rash 07/23/2006 Prolonged exposure only Morphine Other (Please comment) High 02/06/2020 Sulfa Antibiotics Hives 05/05/2004 documented as of this encounter (statuses as of 08/26/2023) Medications Medication Sig Dispensed Refills Start Date [...] CLINIC 90 Tablet 0 07/20/2023 5 Active Linzess 290 MCG Oral Capsule (linaCLOtide) Take 1 Capsule by mouth daily before breakfast. 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 SHIN RESEARCH OTHER*[id number] 02/03/2006 Anxiety state 08/07/2005 AGORAPHOBIA 08/07/2005 Class 2 obesity without seri ous comorbidity with body mass index (BMI) of 39.0 to 39.9 in adult 04/22/2000 Overview: Per Obesity Taxonomy documented as of this encounter (statuses as of 08/26/2023) Resolved Problems Problem Noted Date Diagnosed Date [...] as of this encounter (statuses as of 08/26/2023) Immunizations Name Administration Dates Next Due 08/07/2016, [...] this encounter Progress Notes * Radha Espino rock crusher - 08/26/2023 7:25 AM EST Patient Phone Numbers Sent patient MyG message reminding her she is overdue for INR check. Will follow up in 4 weeks if patient does not test and call in result sooner. Thank you, Radha Espino Pattern Grader Cutter [facility] ([facility]) 08/26/2023,7:26 AM documented in this encounter Plan of Treatment Upcoming Encounters Date Type Department Care Team (Late st Contact Info) Description 08/28/2023 2:45 PM EST Imaging Radiology [facility] [address] [place] [address] 09/23/2023 6:45 PM EDT Anticoagulation Pharmacy Call Center [phone] [facility] [place] [address] [facility], [facility] [address] 60 [facility] [place] [address] 09/30/2023 1:00 PM EDT Nurse Only Ancillary Department, [address] [place] [address] [place], Nurse Annual Wellness [address] [place] [address] 10/15/2023 11:40 AM EDT Office Visit Family [facility], [place] [address] [place] [phone] Jessee Wisdom MD [address] [place] [address] 09/14/2024 10:40 AM EDT Telemedicine Neurology, [place] [address] [place] [address] Michelle Roth MD [address] [place] [address] Scheduled Procedures Name Priority Associated [...] this encounter Medical Devices Implanted Type Area Adjunct Teacher Device Identifier Shelf Expiration Date Model / Serial / Lot Alloderm 2x4cm [id number] (8 Units) - [id number] - [id number] Implanted:Qty: 8 on 2015 by David Rosado MD [place] [facility] [place] Tissue - Human N/A: Esophagus [facility] 10/21/2016 [id number] / [id number] / [id number] Stent Esoph Endomaxx 24p887 - [id number] Implanted:Qty: 1 on 07/09/2013 at [place] [facility] [place] N/A: Esophagus [employer] 07/09/2015 KAIDEN-2315 / / [id number] Stent Esoph Endomaxx [id number] - [id number] Implanted:Qty: 1 on 12/08/2013 at [place] [facility] [place] [employer] 06/23/2016 [id number]-1915 / / [id number] Stent Esoph Endomaxx [id number] - [id number] Implanted:Qty: 1 on 10/19/2014 by David Rosado MD at [place] [facility] [place] N/A: Esophagus [employer] 05/23/2017 KAIDEN-2315 / / [id number] Stent Wallflex Esophogeal 28x1 - [id number] - [id number] Implanted:Qty: 1 on 2015 by David Rosado MD at [place] [facility] [place] N/A: Esophagus [employer] : ENDOSCOPY 06/23/2016 [id number] / [id number] / [id number] Stent Wallflex 27 Mm X 22 Mm [id number] Implanted:Qty: 1 on 2015 by David Rosado MD at [place] [facility] [place] N/A: Esophagus [employer] : ENDOSCOPY [id number] / / Stent Eso Gw [id number] - [id number] Implanted:Qty: 1 on 02/16/2015 by David Rosado MD at [place] [facility] [place] N/A: Esophagus [employer] 04/23/2017 [id number] / / [id number] Screw Ti Locking 1.8mm 497.78 - [id number] Implanted:Qty: 8 on 09/27/2021 by Messi Doll MD at [place] [facility] [place] Right: Spine Cervical SYNTHES 497.78 / / Screw Ti Expans 4.35mm 487.054 - [id number] Implanted:Qty: 8 on 09/27/2021 by Messi Doll MD at [place] [facility] [place] Right: Spine Cervical SYNTHES 487.054 / / Plate Cslp 487.355 - [id number] Implanted:Qty: 1 on 09/27/2021 by Messi Doll MD at [place] [facility] [place] Right: Spine Cervical SYNTHES 487.355 / / Cervical Vertigraft 5x7 - [id number] - [id number] Implanted:Qty: 1 on 09/27/2021 by Messi Doll MD at [place] [facility] [place] Right: Spine Cervical [employer] 01/23/2026 [id number] / [id number] / [id number] Cervical Vertigraft 6x8 - [id number] - [id number] Implanted:Qty: 1 on 09/27/2021 by Messi Doll MD at [place] [facility] [place] Right: Spine Cervical [employer] 11/10/2025 [id number] / [id number] / [id number] Cervical Vertigraft 5x7 - [id number] - [id number] Implanted:Qty: 1 on 09/27/2021 by Messi Doll MD at [place] [facility] [place] Right: Spine Cervical [employer] 04/09/2026 [id number] / [id number] / [id number] documented as of this encounter Visit Diagnoses Diagnosis Anticoagulation management encounter- Primary Encounter for therapeutic drug monitoring documented in this encounter Advance Directives Latest [...] the patient have Health Care Power of Wirer Helper? No Full Code 01/12/2015 10:35 PM 01/21/2015 4:44 PM Question Answer Comments Discussion of Advance Directives occurred with: Not Discussed Full Code 12/22/2014 4:26 AM 12/25/2014 5:53 PM This or nu reflects the patients wishes and were consensually agreed upon. Question Answer Comments Discussion of Advance Directives occurred with: Patient Care Teams Computed Tomography Technician Relationship Specialty Start Date End Date Jessee Wisdom MD [address] [place] [address] PCP - General Family Medicine 06/20/17 documented as of this encounter
--- OUTSIDE RECORDS SUMMARY | 2023-09-01 17:19 | External Medical Summary | Summary of Care ---
Author Name Unknown Organization [facility] Address [address] [place] [address] Phone [phone] Care Team Providers Care Packaging Machine Operator Name Role Phone Jessee Wisdom MD Primary Care Provider +1- [phone] Reason for Visit * Reason Comments Dosage Adjustment Via Phone (anticoag Cl inic) No Show Encounter Details Date Type Department Care Team (Latest Contact Info) Description 07/01/2023 6:45 PM EST Anticoagulation Pharmacy Call Center [address] [place] [address] [facility] 58 60 [facility] [place] [address] Anticoagulation management encounter* Allergies Active Allergy Reactions Criticality Noted Date Comments Ciprofloxacin Nausea/vomiting 01/04/2023 Clindamycin Other (Please comment) 09/19/2020 Stomach pain Latex Rash 07/23/2006 Prolonged exposure only Morphine Other (Please comment) High 02/06/2020 Sulfa Antibiotics Hives 05/05/2004 documented as of this encounter (statuses as of 07/01/2023) Medications Medication Sig Dispensed Refills Start Date [...] first month 2 mL 0 09/25/2022 Active DULoxetine HCl 30 MG Oral Capsule Delayed Release Particles (Cymbalta) TAKE ONE CAPSULE BY MOUTH IN THE MORNING. DO NOT CUT, CRUSH OR CHEW 30 Capsule 5 12/28/2022 Active Warfarin Sodium 5 MG Oral Tablet (Coumadin) TAKE ONE-HALF TO ONE TABLET BY MOUTH ONCE DAILY, OR DIRECTED BY COUMADIN CLINIC 90 Tablet 1 12/20/2022 4 Active buPROPion HCl ER (XL) 300 MG [...] MORNING 90 Tablet 3 09/13/2022 4 Active Ondansetron 4 MG Oral Tablet Disintegrating (Zofran)Indications: Intractable migraine with aura with status migrainosus TAKE 1-2 TABLETS BY MOUTH EVERY 8 HOURS NEEDED FOR RELIEF OF NAUSEA 270 Tablet 3 01/02/2023 4 Active Omeprazole 20 MG Oral Capsule [...] Active Fluticasone Propionate 50 MCG/ACT Nasal Suspension (Flonase)Indications :Dysfunction of right eustachian tube Administer 2 Sprays into each nostril in the morning. 16 g 2 05/06/2023 Active Linzess 290 MCG Oral Capsule (linaCLOtide) Take 1 Capsule by mouth daily before breakfast. 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 SHIN RESEARCH OTHER*[id number] 02/03/2006 Anxiety state 08/07/2005 AGORAPHOBIA 08/07/2005 Class 2 obesity without seri ous comorbidity with body mass index (BMI) of 39.0 to 39.9 in adult 04/22/2000 Overview: Per Obesity Taxonomy documented as of this encounter (statuses as of 07/01/2023) Resolved Problems Problem Noted Date Diagnosed Date [...] perforation 10/25/2014 11/27/19 15 Intra-abdominal abscess 08/15/2013 06/07/2016 Protein-calorie malnutrition 07/16/2013 11/23/2016 Gastric anastomotic leak [...] as of this encounter (statuses as of 07/01/2023) Immunizations Name Administration Dates Next Due 08/07/2016, [...] this encounter Progress Notes * Radha Espino crew chief - 07/01/2023 8:04 AM EST Patient Phone Numbers LVM reminding patient she is overdue for INR check. Will follow up in 4 weeks if patient does not call result in sooner. Thank you, Radha Espino Dry Wall Nailer [facility] ([facility]) 07/01/2023,8:05 AM documented in this encounter Plan of Treatment Upcoming Encounters Date Type Department Care Team (Late st Contact Info) Description 07/29/2023 6:45 PM EST Anticoagulation Pharmacy Call Center [address] [facility] [place] [address] [facility], [facility] [address] 60 [facility] [place] [address] 08/05/2023 2:00 PM EST Office Visit Family [facility], [place] [address] [address] [place] [phone] [facility]dom [facility] [address] [facility] [id number] 09/30/2023 1:00 PM EDT Nurse Only Ancillary Department, [place] [address] [facility] [place] [address] [place] Nurse [facility] Well[facility] [address] [facility] [address] Scheduled Procedures Name Priority Associated Diagnoses Date/Ti me COLONOSCOPY FLEXIBLE PROXIMA L DIAGNOSTIC Recall Family history of colonic polyps Health Maintenance Due Date Last Done Comments Meningitis B Vaccine (Bexsero/Trumemba) (1 of 4 - Increased Risk) 1973 MENINGOCOCCAL (MENACTRA/MENVEO) (2 - Risk 2-dose series) 12/20/2014 10/25/2014, 10/25/2014 Mammogram 03/29/2015 03/29/2014, 10/22, 09/03/2008 COVID-19 Vaccine (3 - 2022- season) 2023 10/13/2020, 09/10/2020 Depression [...] this encounter Medical Devices Implanted Type Area Travel Professional Device Identifier Shelf Expiration Date Model / Serial / Lot Alloderm 2x4cm [id number] (8 Units) - [id number] - [id number] Implanted:Qty : 8 on 2015 by David Rosado MD at [place] [facility] [place] Tissue - Human N/A: Esophagus [employer] 10/21/2016 [id number] / [id number] / [id number] Stent Esoph Endomaxx [id number] - [id number] Implanted:Qty : 1 on 07/09/2013 at [facility] N/A: Esophagus [employer] 07/09/2015 KAIDEN-2315 / / [id number] Stent Esoph Endomaxx [id number] - [id number] Implanted:Qty : 1 on 12/08/2013 at OR [facility] [employer] 06/23/2016 KAIDEN-1915 / / [id number] Stent Esoph Endomaxx [id number] - [id number] Implanted:Qty : 1 on 10/19/2014 by David Rosado MD at [facility] N/A: Esophagus [employer] 05/23/2017 KAIDEN-2315 / / [id number] Stent Wallflex 27 Mm X 22 Mm [id number] Implanted:Qty : 1 on 2015 by David Rosado MD at OR [facility] N/A: Esophagus [employer] : ENDOSCOPY [id number] / / Stent Eso Gw [id number] - [id number] Implanted:Qty : 1 on 02/16/2015 by David Rosado MD at OR [facility] N/A: Esophagus [employer] 04/23/2017 [id number] / / [id number] Plate Cslp 487.355 - [id number] Implanted:Qty : 1 on 09/27/2021 by Messi Doll MD at OR [facility] Right: Spine Cervical SYNTHES 487.355 / / [...] the patient have Health Care Power of Printed Circuit Boards Solder Leveler? No Full Code 01/12/2015 10:35 PM 01/21/2015 4:44 PM Question Answer Comments Discussion of Advance Directives occurred with: Not Discussed Full Code 12/22/2014 4:26 AM 12/25/2014 5:53 PM This or nu reflects the patients wishes and were consensually agreed upon. Question Answer Comments Discussion of Advance Directives occurred with: Patient Care Teams Packaging Machine Operator Relationship Specialty Start Date End Date Jessee Wisdom MD [address] [facility] [place] [address] PCP - General Family Medicine 06/20/17 documented as of this encounter
--- OUTSIDE RECORDS SUMMARY | 2023-09-01 17:19 | External Medical Summary | Summary of Care ---
Author Name Unknown Organization [facility] Address [address] [place] [address] Phone [phone] Care Team Providers Care Embedded Processor Name Role Phone Jessee Wisdom MD Primary Care Provider +1- [phone] Encounter Details Date Type Department Care Team (Late st Contact Info) Description 05/15/2023 Telephone [facility] [address] [place] [address] Jessee Wisdom MD [address] [place] [address] Allergies Active Allergy Reactions Criticality Noted Date Comments Ciprofloxacin Nausea/vomiting 01/04/2023 Clindamycin Other (Please comment) 09/19/2020 Stomach pain Latex Rash 07/23/2006 Prolonged exposure only Morphine Other (Please comment) High 02/06/2020 Sulfa Antibiotics Hives 05/05/2004 documented as of this encounter (statuses as of 05/20/2023) Medications Medication Sig Dispensed Refills Start Date [...] the morning. 16 g 2 05/06/2023 Active Trulance 3 MG Oral Tablet (Plecanatide) Take 3 mg by mouth in the morning. 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 SHIN RESEARCH OTHER*[id number] 02/03/2006 Anxiety state 08/07/2005 AGORAPHOBIA 08/07/2005 Class 2 obesity without seri ous comorbidity with body mass index (BMI) of 39.0 to 39.9 in adult 04/22/2000 Overview: Per Obesity Taxonomy documented as of this encounter (statuses as of 05/20/2023) Resolved Problems Problem Noted Date Diagnosed Date [...] 01/24/2015 03/09/20 15 Vitamin A deficiency 01/20/2015 11/30/2 022 Overview: VITAMIN A(ug/L) Zeeshan Dt/Tm Resulted [...] as of this encounter (statuses as of 05/20/2023) Immunizations Name Administration Dates Next Due 08/07/2016, 6,11/29/2015,12/201411/05/2016 COVID-19 mRNA, LNP-s, No Pre serve, 2-Dose Series (Moderna) 10/13/2020,09/10/2020 H1N1 2009 Influenza, IM 07/29/2009 HIB PRP-T, 4 dose (ActHib) 10/25/2014 Meningococcal Conjugate Vacc ine (Menactra/Menveo) 10/25/2014 Pneumococcal Conjugate Vacc, 13 Valent (Prevnar) 10/25/2014 Pneumococcal Polysaccharide PPV23 (Pneumovax) 04/01/2020,02/21/2010 SEASONAL INFLUENZA, PF, 6 M & Above, IM , (FLULAVAL or FLUZONE) 05/13/2023,04/20/2022,03/10/2021,02/23,02/27/2019 Seasonal Influenza Virus Vac cine, Unspecified Formulation 05/16/2018 Seasonal Influenza, Quadriva lent, No Preserve, IM [...] encounter Miscellaneous Notes * Telephone Encounter - Shelly Castaneda MD - 05/20/2023 2:46 PM EST Form is filled and signed Needs med list together * Telephone Encounter - Lis Agustin LPN - 05/17/2023 10:21 AM EST Paperwork placed on providers desk 05/17/2023 * Telephone Encounter - Kamilah Felder OSA - 05/15/2023 3:08 PM EST 05/15/23 Pt stopped by the front end engineer and dropped off paperwork from [employer] for employment. Paperwork put in Dr. Castaneda's mail bin on 05/15/23. documented in this encounter Plan of Treatment Upcoming Encounters Date Type Department Care Team (Late st Contact Info) Description 05/21/2023 6:45 PM EST Anticoagulation Pharmacy Call Center WB [phone] [facility] [place] [address] [facility] [address] 60 [facility] [place] [address] 07/25/2023 1:20 PM EST Office Visit [facility] [address] [place] [place] [address] Jessee Wisdom MD [address] [place] [address] 09/30/2023 1:00 PM EDT Nurse Only Ancillary Department, [place] [address] [facility] [place] [place] [address] [place], Nurse Annual Wellness [address] [facility] [place] [address] Scheduled Procedures Name Priority Associated Diagnoses Date/Ti [...] this encounter Medical Devices Implanted Type Area Assembling Motor Builder Device Identifier Shelf Expiration Date Model / Serial / Lot Alloderm 2x4cm [id number] (8 Units) - [id number] - [id number] Implanted:Qty : 8 on 2015 by David Rosado MD at OR [facility] [place] Tissue - Human N/A: Esophagus [employer] 10/21/2016 [id number] / [id number] / [id number] Stent Esoph Endomaxx 47w013 - [id number] Implanted:Qty : 1 on 07/09/2013 at OR [facility] [place] N/A: Esophagus [employer] 07/09/2015 KAIDEN-2315 / / [id number] Stent Esoph Endomaxx [id number] - [id number] Implanted:Qty : 1 on 12/08/2013 at OR [facility] [place] [employer] 06/23/2016 KAIDEN-1915 / / [id number] Stent Esoph Endomaxx [id number] - [id number] Implanted:Qty : 1 on 10/19/2014 by David Rosado MD at OR [facility] [place] N/A: Esophagus [employer] 05/23/2017 KAIDEN-2315 / / [id number] Stent Wallflex 27 Mm X 22 Mm [id number] Implanted:Qty : 1 on 2015 by David Rosado MD at OR [facility] [place] N/A: Esophagus [employer] : ENDOSCOPY [id number] / / Stent Eso Gw [id number] - [id number] Implanted:Qty : 1 on 02/16/2015 by David Rosado MD at OR [facility] [place] N/A: Esophagus [employer] 04/23/2017 [id number] / / [id number] Plate Cslp 487.355 - [id number] Implanted:Qty : 1 on 09/27/2021 by Messi Doll MD at OR [facility] [place] Right: Spine Cervical SYNTHES 487.355 / / [...] the patient have Health Care Power of Hydramatic Mechanic? No Full Code 01/12/2015 10:35 PM 01/21/2015 4:44 PM Question Answer Comments Discussion of Advance Directives occurred with: Not Discussed Full Code 12/22/2014 4:26 AM 12/25/2014 5:53 PM This or nu reflects the patients wishes and were consensually agreed upon. Question Answer Comments Discussion of Advance Directives occurred with: Patient Care Teams Embedded Processor Relationship Specialty Start Date End Date Jessee Wisdom MD [address] [place] [address] PCP - General Family Medicine 06/20/17 documented as of this encounter
--- OUTSIDE RECORDS SUMMARY | 2023-09-01 17:19 | External Medical Summary | Summary of Care ---
Author Name Unknown Organization [facility] Address [address] [place] [address] Phone [phone] Care Team Providers Care Dip Filler Name Role Phone Stephanie Poole MD Primary Care Provider +1- [phone] Reason for Visit * Reason Comments eRx-Medication Refill Encounter Details Date Type Department Care Team (Late st Contact Info) Description 07/18/2023 Refill [facility] [address] [place] [address] Stephanie Poole MD [address] [place] [address] Allergies Active Allergy Reactions Criticality Noted Date Comments Ciprofloxacin Nausea/vomiting 01/04/2023 Clindamycin Other (Please comment) 09/19/2020 Stomach pain Latex Rash 07/23/2006 Prolonged exposure only Morphine Other (Please comment) High 02/06/2020 Sulfa Antibiotics Hives 05/05/2004 documented as of this encounter (statuses as of 07/19/2023) Medications Medication Sig Dispensed Refills Start Date [...] stool per day. . 2550 g 2 1 Active Calcium Carb-Cholecalcifero l 600-400 MG-UNIT Oral Tablet (Calcium 600+D) Take by mouth 1 Tablet 2 times a day . 60 Tablet 5 2 Active One-A-Day Womens 50+ Oral Tablet Take by mouth daily. 0 Active Galcanezumab-gnlm 120 MG/ML Subcutaneous Solution Auto-injector (Emgality) Inject 240 mg (two 1 mL injections) under the skin as a loading dose the first month 2 mL 0 3 Active Warfarin Sodium 5 MG Oral Tablet (Coumadin) TAKE ONE-HALF TO ONE TABLET BY MOUTH ONCE DAILY, OR DIRECTED BY COUMADIN CLINIC 90 Tablet 1 3 12/20/19 24 Active buPROPion HCl ER (XL) 300 MG Oral Tablet Extended Release 24 Hour (Wellbutrin XL)Indications:Depr ession with anxiety TAKE ONE TABLET BY MOUTH EVERY MORNING 90 Tablet 2 3 12/17/19 24 Active Amitriptyline HCl 50 MG Oral Tablet (Elavil)Indications :Cervicalgia,Depres juana with anxiety,Degeneratio n of cervical intervertebral disc TAKE ONE TABLET BY MOUTH AT BEDTIME EVERY DAY 90 Tablet 3 3 12/17/19 24 Active busPIRone HCl 10 MG Oral Tablet (Buspar) TAKE ONE TABLET BY MOUTH EVERY MORNING AND AT BEDTIME 180 Tablet 3 3 11/06/19 24 Active Metoclopramide HCl 5 MG Oral Tablet (Reglan) TAKE ONE TO TWO TABLETS BY MOUTH AT START OF HEADACHE FOR NAUSEA AND HEAD PAIN DIRECTED. TAKE UP TO THREE DAYS PER WEEK 90 Tablet 3 3 09/14/19 24 Active Furosemide 20 MG Oral Tablet (Lasix)Indications: Bilateral lower extremity edema TAKE ONE TABLET BY MOUTH EVERY DAY IN THE MORNING 90 Tablet 3 3 09/13/19 24 Active Omeprazole 20 MG Oral Capsule Delayed Release (PriLOSEC) TAKE 1 CAPSULE BY MOUTH 2 TIMES A DAY, 30 MINUTES BEFORE MORNING AND EVENING MEALS 180 Capsule 1 3 01/04/20 24 Active tiZANidine HCl 4 MG Oral Tablet (Zanaflex) Take 2-3 tablets at bedtime. 90 Tablet 11 3 Active Eletriptan Hydrobromide 40 MG Oral Tablet (Relpax)Indications :Intractable chronic migraine without aura and without status migrainosus,Cervica lgia Take one half to one tablet by mouth at start of headache; may repeat once after two hours. Take up to 2 days a week. 27 Tablet 2 3 Active Zolpidem Tartrate ER 12.5 MG Oral Tablet Extended ReleaseIndications: Primary insomnia Take one tablet by mouth every night at bedtime 30 Tablet 5 3 Active Pantoprazole Sodium 40 MG Oral Tablet Delayed Release (Protonix) Take 1 Tablet by mouth in the morning. 30 minutes before the first meal of the day. Do not crush, split or chew the tablet. 30 Tablet 5 3 Active Fluticasone Propionate 50 MCG/ACT Nasal Suspension (Flonase)Indication s:Dysfunction of right eustachian tube Administer 2 Sprays into each nostril in the morning. 16 g 2 3 Active Linzess 290 MCG Oral Capsule (linaCLOtide) Take 1 Capsule by mouth daily before breakfast. 90 Capsule 3 3 Active Ondansetron 4 MG Oral Tablet Disintegrating (Zofran)Indications :Intractable migraine with aura with status migrainosus TAKE 1-2 TABLETS BY MOUTH EVERY 8 HOURS NEEDED FOR RELIEF OF NAUSEA 270 Tablet 0 4 07/08/19 25 Active DULoxetine HCl 30 MG Oral Capsule Delayed Release Particles (Cymbalta) TAKE 1 CAPSULE BY MOUTH EVERY MORNING. do not cut, crush or chew 90 Capsule 1 4 Active DULoxetine HCl 30 MG Oral Capsule Delayed Release Particles (Cymbalta) TAKE ONE CAPSULE BY MOUTH IN THE MORNING. 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 SHIN RESEARCH OTHER*[id number] 02/03/2006 Anxiety state 08/07/2005 AGORAPHOBIA 08/07/2005 Class 2 obesity without seri ous comorbidity with body mass index (BMI) of 39.0 to 39.9 in adult 04/22/2000 Overview: Per Obesity Taxonomy documented as of this encounter (statuses as of 07/19/2023) Resolved Problems Problem Noted Date Diagnosed Date [...] as of this encounter (statuses as of 07/19/2023) Immunizations Name Administration Dates Next Due 08/07/2016, [...] encounter Miscellaneous Notes * Telephone Encounter - Ish Osuna RPh - 07/19/2023 7:31 AM ESTSigned Prescriptions: Disp Refills DULoxetine HCl 30 MG Oral Capsule Delayed *90 Cap*1 Sig: TAKE 1 CAPSULE BY MOUTH EVERY MORNING. do not cut, crush or chewAuthorizing Provider: STEPHANIE POOLE User: ISH OSUNA documented in this encounter Plan of Treatment Upcoming Encounters Date Type Department Care Team (Late st Contact Info) Description 07/29/2023 6:45 PM EST [facility] [address] [facility] [place] [address] 08/05/2023 2:00 PM EST Office Visit [facility] [address] [place] [id number] Stephanie Poole MD [address] [place] [address] 09/30/2023 1:00 PM EDT Nurse Only Ancillary Department, [place] [address], [place] [phone] [place], Nurse Annual [facility] [address], [place] [phone] Scheduled Procedures Name Priority Associated Diagnoses Date/Ti [...] this encounter Medical Devices Implanted Type Area Health And Safety Director Device Identifier Shelf Expiration Date Model / Serial / Lot Alloderm 2x4cm [id number] (8 Units) - [id number] - [id number] Implanted:Qty : 8 on 2015 by [place]ado [place] [facility] [place] - Human N/A: Esophagus [email or web address] 10/21/2016 [id number] / [id number] / [id number] Stent Esoph Endomaxx [id number] - [id number] Implanted:Qty : 1 on 07/09/2013 [place] [facility] [place] N/A: Esophagus [employer] 07/09/2015 KAIDEN-2315 / / [id number] Stent Esoph Endomaxx 66q259 - [id number] Implanted:Qty : 1 on 12/08/2013 [place] [facility] [place] [employer] 06/23/2016 KAIDEN-1915 / / [id number] Stent Esoph Endomaxx [id number] - [id number] Implanted:Qty : 1 on 10/19/2014 by David Rosado MD [place] [facility] [place] N/A: Esophagus [employer] 05/23/2017 KAIDEN-2315 / / [id number] Stent Wallflex 27 Mm X 22 Mm [id number] Implanted:Qty : 1 on 2015 by David Rosado MD [place] [facility] [place] N/A: Esophagus [employer] : ENDOSCOPY [id number] / / Stent Eso Gw [id number] - [id number] Implanted:Qty : 1 on 02/16/2015 by David Rosado MD [place] [facility] [place] N/A: Esophagus [employer] 04/23/2017 [id number] / / [id number] Plate [facility] 487.355 - [id number] Implanted:Qty : 1 on 09/27/2021 by Messi Doll MD [place] [facility] [place] Right: Spine Cervical SYNTHES 487.355 / / [...] the patient have Health Care Power of Sprayer Insecticide? No Full Code 01/12/2015 10:35 PM 01/21/2015 4:44 PM Question Answer Comments Discussion of Advance Directives occurred with: Not Discussed Full Code 12/22/2014 4:26 AM 12/25/2014 5:53 PM This or nu reflects the patients wishes and were consensually agreed upon. Question Answer Comments Discussion of Advance Directives occurred with: Patient Care Teams Dip Filler Relationship Specialty Start Date End Date Stephanie Poole MD [address] [place] [facility] [place] [address] PCP - General Family Medicine 06/20/17 documented as of this encounter
--- OUTSIDE RECORDS SUMMARY | 2023-09-01 17:19 | External Medical Summary | Summary of Care ---
Author Name Unknown Organization [facility] Address [address] [place] [address] Phone [phone] Care Team Providers Care Relay Technician Name Role Phone Jessee Wisdom MD Primary Care Provider +1- [phone] Encounter Details Date Type Department Care Team (Late st Contact Info) Description 05/21/2023 Telephone [facility] [address] [place] [address] Jessee Wisdom MD [address] [place] [address] Allergies Active Allergy Reactions Criticality Noted Date Comments Ciprofloxacin Nausea/vomiting 01/04/2023 Clindamycin Other (Please comment) 09/19/2020 Stomach pain Latex Rash 07/23/2006 Prolonged exposure only Morphine Other (Please comment) High 02/06/2020 Sulfa Antibiotics Hives 05/05/2004 documented as of this encounter (statuses as of 05/23/2023) Medications Medication Sig Dispensed Refills Start Date [...] as of this encounter (statuses as of 05/23/2023) Active Problems Problem Noted Date Diagnosed Date [...] 12/25/2014 Depression with anxiety 12/25/2014 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 1 08/19/2012 Intestinal postoperative nonabsorption 3 Gastric bypass status for obesity 02/19/2013 Dysphagia 10/27/2012 Degeneration of cervical intervertebral disc 03/2011 Insomnia 08/31/2009 Overview: ICD-10 update of inactive term 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 SHIN RESEARCH OTHER*[id number] 02/03/2006 Anxiety state 08/07/2005 AGORAPHOBIA 08/07/2005 Class 2 obesity without seri ous comorbidity with body mass index (BMI) of 39.0 to 39.9 in adult 04/22/2000 Overview: Per Obesity Taxonomy documented as of this encounter (statuses as of 05/23/2023) Resolved Problems Problem Noted Date Diagnosed Date [...] as of this encounter (statuses as of 05/23/2023) Immunizations Name Administration Dates Next Due 08/07/2016, [...] Telephone Encounter - Shelly Castaneda MD - 05/23/2023 8:09 AM EST Noted * Telephone Encounter - Jessee Wisdom MD - 05/22/2023 1:43 PM EST Will forward to provider who has been working with pt on this issue * Telephone Encounter - Bee Garcia LPN - 05/22/2023 11:32 AM EST Melissa from [facility] calling, the turance is denied due to not trying and failing on other medications like linzess. They have documentation that linzess out of pocket cost was too high for pt causing a financial burden. Melissa did speak to her data entry supervisor about this and was advised even if the turance isapproved the out of pocket cost would be higher than the Linzess. Meaning the Linzess is the cheaper option. [facility] is requesting a call back on how Dr would like to proceed. [facility] [phone] * Telephone Encounter - Lis Agustin LPN - 05/21/2023 5:46 PM EST Prior auth started for trulance through [facility]ARA # [id number] documented in this encounter Plan of Treatment Upcoming Encounters Date Type Department Care Team (Late st Contact Info) Description 06/10/2023 6:45 PM EST Anticoagulation Pharmacy Call Center WB [address] [facility] [place] [place] [address] [facility], [facility] [address] [facility] [place] [address] 07/25/2023 1:20 PM EST Office Visit [facility] [place] [address] [facility] [address] Jessee Wisdom [facility] [address] [facility] [address] 09/30/2023 1:00 PM EDT Nurse Only Ancillary Department, [place] [address] [facility] [address] [place], Nurse Annual Wellness [address] [place] [address] Scheduled Procedures Name Priority Associated Diagnoses [...] this encounter Medical Devices Implanted Type Area Engineering Instructor Device Identifier Shelf Expiration Date Model / Serial / Lot Alloderm 2x4cm [id number] (8 Units) - [id number] - [id number] Implanted:Qty : 8 on 2015 [place] [facility] [place] - Human N/A: Esophagus [employer] 10/21/2016 [id number] / [id number] / [id number] Stent Esoph Endomaxx [id number] - [id number] Implanted:Qty : 1 on 07/09/2013 [place] [facility] [place] N/A: Esophagus [employer] 07/09/2015 KAIDEN-2315 / / [id number] Stent Esoph Endomaxx [id number] - [id number] Implanted:Qty : 1 on 12/08/2013 [place] [facility] [place] [employer] 06/23/2016 KAIDEN-1915 / / [id number] Stent Esoph Endomaxx 66q935 - [id number] Implanted:Qty : 1 on 10/19/2014 by [place]ado [place] [facility] [place] N/A: Esophagus [employer] 05/23/2017 KAIDEN-2315 / / [id number] Stent Wallflex 27 Mm X 22 Mm [id number] Implanted:Qty : 1 on 2015 by [place] Rosado [place] [facility] [place] N/A: Esophagus [employer] : ENDOSCOPY [id number] / / Stent Eso Gw [id number] - [id number] Implanted:Qty : 1 on 02/16/2015 by [place] Rosado [place] [facility] [place] N/A: Esophagus [employer] 04/23/2017 [id number] / / [id number] Plate Cslp 487.355 - [id number] Implanted:Qty : 1 on 09/27/2021 by Messi Doll [place] [facility] [place] Right: Spine Cervical SYNTHES 487.355 / / [...] the patient have Health Care Power of Nursing Assoc? No Full Code 01/12/2015 10:35 PM 01/21/2015 4:44 PM Question Answer Comments Discussion of Advance Directives occurred with: Not Discussed Full Code 12/22/2014 4:26 AM 12/25/2014 5:53 PM This or nu reflects the patients wishes and were consensually agreed upon. Question Answer Comments Discussion of Advance Directives occurred with: Patient Care Teams Relay Technician Relationship Specialty Start Date End Date Jessee Wisdom MD [address] [place] [address] PCP - General Family Medicine 06/20/17 documented as of this encounter
--- OUTSIDE RECORDS SUMMARY | 2023-09-01 17:19 | External Medical Summary | Summary of Care ---
Author Name Unknown Organization [facility] Address [address] [place] [address] Phone [phone] Care Team Providers Care Bill Cutter Name Role Phone Jessee Wisdom MD Primary Care Provider +1- [phone] Encounter Details Date Type Department Care Team (Late st Contact Info) Description 05/15/2023 Telephone [facility] [address] [place] [address] Jessee Wisdom MD [address] [place] [address] Allergies Active Allergy Reactions Criticality Noted Date Comments Ciprofloxacin Nausea/vomiting 01/04/2023 Clindamycin Other (Please comment) 09/19/2020 Stomach pain Latex Rash 07/23/2006 Prolonged exposure only Morphine Other (Please comment) High 02/06/2020 Sulfa Antibiotics Hives 05/05/2004 documented as of this encounter (statuses as of 05/21/2023) Medications Medication Sig Dispensed Refills Start Date [...] as of this encounter (statuses as of 05/21/2023) Active Problems Problem Noted Date Diagnosed Date [...] 12/25/2014 Depression with anxiety 12/25/2014 Constipation 12/11/2013 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 1 08/19/2012 Intestinal postoperative nonabsorption 3 Gastric bypass status for obesity 02/19/2013 Dysphagia 10/27/2012 Degeneration of cervical intervertebral disc 03/2011 Insomnia 08/31/2009 Overview: ICD-10 update of inactive term 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 SHIN RESEARCH OTHER*[id number] 02/03/2006 Anxiety state 08/07/2005 AGORAPHOBIA 08/07/2005 Class 2 obesity without seri ous comorbidity with body mass index (BMI) of 39.0 to 39.9 in adult 04/22/2000 Overview: Per Obesity Taxonomy documented as of this encounter (statuses as of 05/21/2023) Resolved Problems Problem Noted Date Diagnosed Date [...] as of this encounter (statuses as of 05/21/2023) Immunizations Name Administration Dates Next Due 08/07/2016, [...] Influenza, Split, I IV3, With Preserve, Inj 05/22/2011,04/14/2010,03/15/2009,04/24,05/07/2005 TD, Preservative Free 05/16/2018 TDAP (age 9 [...] Felder OSA - 05/15/2023 3:08 PM EST 05/21/23 Paperwork is complete. Paperwork was successfully faxed to [employer] Paperwork was sent to [employer] to be added to the pts chart. Pt was called to p/u the original copy if pt chooses to do so. [employer] put in the cube out by the front desks. 05/15/23 Pt stopped by the front desk person and dropped off paperwork from [employer] for employment. Paperwork put in Dr. Castaneda's mail bin on 05/15/23. documented in this encounter Plan of Treatment Upcoming Encounters Date Type Department Care Team (Latest Contact Info) Description 05/21/2023 6:45 PM EST Anticoagulation Pharmacy Call Center [address] [place] [address] [facility] [address] [facility] [place] [address] Anticoagulation management encounter* 06/10/2023 6:45 PM EST Anticoagulation Pharmacy Call Center [address] [place] [address] [facility], [facility] [address] [facility] [place] [address] 07/25/2023 1:20 PM EST Office Visit Family Practice, [place] [address] [place] [facility] [place] [address] Jessee Wisdom MD [address] [place] [facility] [place] [address] 09/30/2023 1:00 PM EDT Nurse Only Ancillary Department, [place] [address] [facility] [place] [address] [place], Nurse Annual Wellness [address] [place] [facility] [place] [address] Scheduled Procedures Name Priority Associated Diagnoses [...] this encounter Medical Devices Implanted Type Area Parts Facilitator Device Identifier Shelf Expiration Date Model / Serial / Lot Alloderm 2x4cm [id number] (8 Units) - [id number] - [id number] Implanted:Qty : 8 on 2015 by David Rosado MD at [place] [facility] [place] Tissue - Human N/A: Esophagus [employer] 10/21/2016 [id number] / [id number] / [id number] Stent Esoph Endomaxx [id number] - [id number] Implanted:Qty : 1 on 07/09/2013 at [place] [facility] [place] N/A: Esophagus [employer] 07/09/2015 KAIDEN-2315 / / [id number] Stent Esoph Endomaxx [id number] - [id number] Implanted:Qty : 1 on 12/08/2013 at [place] [facility] [place] [employer] 06/23/2016 KAIDEN-1915 / / [id number] Stent Esoph Endomaxx [id number] - [id number] Implanted:Qty : 1 on 10/19/2014 by David Rosado MD at [place] [facility] [place] N/A: Esophagus [employer] 05/23/2017 KAIDEN-2315 / / [id number] Stent Wallflex 27 Mm X 22 Mm [id number] Implanted:Qty : 1 on 2015 by David Rosado MD at [place] [facility] [place] N/A: Esophagus [employer] : ENDOSCOPY [id number] / / Stent Eso Gw [id number] - [id number] Implanted:Qty : 1 on 02/16/2015 by David Rosado MD at [facility] N/A: Esophagus [employer] 04/23/2017 [id number] / / [id number] Plate Cslp 487.355 - [id number] Implanted:Qty : 1 on 09/27/2021 by Messi Doll MD at [place] [facility] [place] Right: Spine Cervical SYNTHES 487.355 / / [...] the patient have Health Care Power of Adjunct Faculty Instructor? No Full Code 01/12/2015 10:35 PM 01/21/2015 4:44 PM Question Answer Comments Discussion of Advance Directives occurred with: Not Discussed Full Code 12/22/2014 4:26 AM 12/25/2014 5:53 PM This or nu reflects the patients wishes and were consensually agreed upon. Question Answer Comments Discussion of Advance Directives occurred with: Patient Care Teams Bill Cutter Relationship Specialty Start Date End Date Jessee Wisdom MD [address] [facility] [place] [address] PCP - General Family Medicine 06/20/17 documented as of this encounter
--- OUTSIDE RECORDS SUMMARY | 2023-09-01 17:19 | External Medical Summary | Summary of Care ---
Author Name Unknown Organization [facility] Address [address] [place] [address] Phone [phone] Care Team Providers Care Engineering Supervisor Name Role Phone Jessee Wisdom MD Primary Care Provider +1- [phone] Reason for Visit * Reason Onset Date Comments Pre Cert/Prior Auth 05/15/2023 Encounter Details Date Type Department Care Team (Late st Contact Info) Description 05/15/2023 Telephone [facility] [address] [place] [address] Jessee Wisdom MD [address] [place] [address] Pre Cert/Prior Auth (/) Allergies Active Allergy Reactions Criticality Noted Date Comments Ciprofloxacin Nausea/vomiting 01/04/2023 Clindamycin Other (Please comment) 09/19/2020 Stomach pain Latex Rash 07/23/2006 Prolonged exposure only Morphine Other (Please comment) High 02/06/2020 Sulfa Antibiotics Hives 05/05/2004 documented as of this encounter (statuses as of 05/17/2023) Medications Medication Sig Dispensed Refills Start Date [...] as of this encounter (statuses as of 05/17/2023) Active Problems Problem Noted Date Diagnosed Date [...] 12/25/2014 Depression with anxiety 12/25/2014 Constipation 12/11/2013 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 1 08/19/2012 Intestinal postoperative nonabsorption 3 Gastric bypass status for obesity 02/19/2013 Dysphagia 10/27/2012 Degeneration of cervical intervertebral disc 03/2011 Insomnia 08/31/2009 Overview: ICD-10 update of inactive term 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 SHIN RESEARCH OTHER*[id number] 02/03/2006 Anxiety state 08/07/2005 AGORAPHOBIA 08/07/2005 Class 2 obesity without seri ous comorbidity with body mass index (BMI) of 39.0 to 39.9 in adult 04/22/2000 Overview: Per Obesity Taxonomy documented as of this encounter (statuses as of 05/17/2023) Resolved Problems Problem Noted Date Diagnosed Date Resolved Date Food insecurity 06/05/2021 08/08/2022 Overview: Per [facility] Protocol Intractable chronic migraine without aura and without status migrainosus 12/10/2016 05/13/2023 Gastric bypass status for obesity 08/18/2015 11/23/2016 UTI (urinary tract infection) 03/10/2015 11/23/2016 SIRS (systemic inflammatory response syndrome) 03/09/2015 08/24/2021 Nausea and vomiting 02/19/2015 03/09/20 15 Pulmonary embolism 02/19/2015 5 Severe malnutrition 01/24/2015 06/02/20 17 Severe malnutrition 01/24/2015 03/09/20 15 Vitamin [...] as of this encounter (statuses as of 05/17/2023) Immunizations Name Administration Dates Next Due 08/07/2016, [...] encounter Miscellaneous Notes * Telephone Encounter - Lis Agustin LPN - 05/17/2023 2:31 PM EST Prior auth denied due to no documentation of therapeutic failure on, intolerance to, or contraindication to Linzess, lubiprostone * Telephone Encounter - Anisa Rosas LPN - 05/17/2023 9:20 AM EST Dedra calling from [facility] regarding Pa for: Trulance 3 MG Oral Tablet (Plecanatide) PA Denied Faxing information to the office * Telephone Encounter - Lis Agustin LPN - 05/15/2023 12:34 PM EST Prior auth started for trulance through [facility]# [id number] documented in this encounter Plan of Treatment Upcoming Encounters Date Type Department Care Team (Late st Contact Info) Description 05/17/2023 3:45 PM EST Imaging Radiology [address], [address] [place] [address] 05/21/2023 6:45 PM EST Anticoagulation Pharmacy Call Center [address] [facility] [place] [address] [facility] 58 60 [facility] [place] [address] 07/25/2023 1:20 PM EST Office Visit Family Practice, [place] [address] [place] [facility] [place] [phone] Jessee Wisdom MD [address] [facility] [place] [address] 09/30/2023 1:00 PM EDT Nurse Only Ancillary Department, [place] [address] [facility] [address] [place], Nurse Annual Wellness [address] [facility] [place] [address] Scheduled Procedures Name Priority Associated Diagnoses [...] this encounter Medical Devices Implanted Type Area Figure Skater Device Identifier Shelf Expiration Date Model / Serial / Lot Alloderm 2x4cm [id number] (8 Units) - [id number] - [id number] Implanted:Qty : 8 on 2015 by David Rosado MD at [place] [facility] Tissue - Human N/A: Esophagus [employer] 10/21/2016 [id number] / [id number] / [id number] Stent Esoph Endomaxx 34p608 - [id number] Implanted:Qty : 1 on 07/09/2013 at OR [facility] N/A: Esophagus [employer] 07/09/2015 KAIDEN-2315 / / [id number] Stent Esoph Endomaxx [id number] - [id number] Implanted:Qty : 1 on 12/08/2013 at OR [facility] [employer] 06/23/2016 KAIDEN-1915 / / [id number] Stent Esoph Endomaxx [id number] - [id number] Implanted:Qty : 1 on 10/19/2014 by David Rosado MD at [place] [facility] N/A: Esophagus [employer] 05/23/2017 KAIDEN-2315 / / [id number] Stent Wallflex 27 Mm X 22 Mm [id number] Implanted:Qty : 1 on 2015 by David Rosado MD at [place] [facility] N/A: Esophagus [employer] : ENDOSCOPY [id number] / / Stent Eso Gw [id number] - [id number] Implanted:Qty : 1 on 02/16/2015 by David Rosado MD at [facility] N/A: Esophagus [employer] 04/23/2017 [id number] / / [id number] [facility] 487.355 - [id number] Implanted:Qty : 1 on 09/27/2021 by Messi Doll MD at [facility] Right: Spine Cervical SYNTHES 487.355 / [...] the patient have Health Care Power of Community Service Officer? No Full Code 01/12/2015 10:35 PM 01/21/2015 4:44 PM Question Answer Comments Discussion of Advance Directives occurred with: Not Discussed Full Code 12/22/2014 4:26 AM 12/25/2014 5:53 PM This or nu reflects the patients wishes and were consensually agreed upon. Question Answer Comments Discussion of Advance Directives occurred with: Patient Care Teams Engineering Supervisor Relationship Specialty Start Date End Date Jessee Wisdom MD [address] [place] [address] PCP - General Family Medicine 06/20/17 documented as of this encounter
--- OUTSIDE RECORDS SUMMARY | 2023-09-01 17:19 | External Medical Summary | Summary of Care ---
Author Name Unknown Organization [facility] Address [address] [place] [address] Phone [phone] Care Team Providers Care Behavioral Health Worker Name Role Phone Jessee Wisdom MD Primary Care Provider +1- [phone] Reason for Visit * Reason Comments Dosage Adjustment Via Phone (anticoag Cl inic) Encounter Details Date Type Department Care Team (Latest Contact Info) Description 05/21/2023 6:45 PM EST Anticoagulation Pharmacy Call Center [address] [facility] [place] [address] [facility] 58 60 [facility] [place] [address] Anticoagulation management encounter* Allergies Active Allergy Reactions [...] 12/25/2014 Depression with anxiety 12/25/2014 Constipation 12/11/2013 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 Will follow up in 2-3 weeks ifresult is not called in sooner. Thank you, Radha Espino Fleece Tier [facility] 05/21/2023,7:48 AM documented in this encounter Plan of Treatment Upcoming Encounters Date Type Department Care Team (Late st Contact Info) Description 06/10/2023 6:45 PM EST Anticoagulation Pharmacy Call Center [address] [place] [address] [facility], [facility] [address] [place] [address] 07/25/2023 1:20 PM EST Office Visit Family [facility], [place] [address] [place] [phone] Jessee Wisdom MD [address] [facility] [place] [phone] 09/30/2023 1:00 PM EDT Nurse Only Ancillary Department, [place] [address] [facility] [address] [place] Nurse Annual Well[facility] [address] [facility] [address] Scheduled Procedures Name Priority Associated Diagnoses Date/Ti [...] this encounter Medical Devices Implanted Type Area Senior Nurse Manager Device Identifier Shelf Expiration Date Model / Serial / Lot Alloderm 2x4cm [id number] (8 Units) - [id number] - [id number] Implanted:Qty : 8 on 2015 by David Rosado MD at OR [facility] Tissue - Human N/A: Esophagus [employer] 10/21/2016 810096 / [id number] / [id number] Stent Esoph Endomaxx 47v350 - [id number] Implanted:Qty : 1 on 07/09/[address] [facility] N/A: Esophagus [employer] 07/09/2015 KAIDEN-2315 / / [id number] Stent Esoph Endomaxx [id number] - [id number] Implanted:Qty : 1 on 12/08/[address] [facility] [employer] 06/23/2016 KAIDEN-1915 / / [id number] Stent Esoph Endomaxx 80p359 - [id number] Implanted:Qty : 1 on 10/19/2014 by David Rosado MD at [facility] N/A: Esophagus [employer] 05/23/2017 KAIDEN-2315 / / [id number] Stent Wallflex 27 Mm X 22 Mm [id number] Implanted:Qty : 1 on 2015 by David Rosado MD at OR [facility] N/A: Esophagus [employer] : ENDOSCOPY [id number] / / Stent Eso Gw [id number] - [id number] Implanted:Qty : 1 on 02/16/2015 by David Rosado MD at [facility] N/A: Esophagus [employer] 04/23/2017 [id number] / / [id number] Plate Cslp 487.355 - [id number] Implanted:Qty : 1 on 09/27/2021 by Messi Doll MD at OR [facility] Right: Spine Cervical SYNTHES 487.355 / / [...] the patient have Health Care Power of Trial Court Judge? No Full Code 01/12/2015 10:35 PM 01/21/2015 4:44 PM Question Answer Comments Discussion of Advance Directives occurred with: Not Discussed Full Code 12/22/2014 4:26 AM 12/25/2014 5:53 PM This or nu reflects the patients wishes and were consensually agreed upon. Question Answer Comments Discussion of Advance Directives occurred with: Patient Care Teams Behavioral Health Worker Relationship Specialty Start Date End Date Jessee Wisdom MD [address] [facility] [place] [address] PCP - General Family Medicine 06/20/17 documented as of this encounter
--- OUTSIDE RECORDS SUMMARY | 2023-09-01 17:19 | External Medical Summary | Summary of Care ---
Author Name Unknown Organization [facility] Address [address] [place] [address] Phone [phone] Care Team Providers Care Hairspring Truer Name Role Phone Jessee Wisdom MD Primary Care Provider +1- [phone] Reason for Visit * Reason Comments Dosage Adjustment Via Phone (anticoag Cl inic) Encounter Details Date Type Department Care Team (Latest Contact Info) Description 06/10/2023 6:45 PM EST Anticoagulation Pharmacy Call Center 58-[address] [place] [address] [facility] 58 [address] [facility] [place] [address] Anticoagulation management encounter* Allergies Active Allergy Reactions Criticality Noted Date Comments Ciprofloxacin Nausea/vomiting 01/04/2023 Clindamycin Other (Please comment) 09/19/2020 Stomach pain Latex Rash 07/23/2006 Prolonged exposure only Morphine Other (Please comment) High 02/06/2020 Sulfa Antibiotics Hives 05/05/2004 documented as of this encounter (statuses as of 06/10/2023) Medications Medication Sig Dispensed Refills Start Date [...] as of this encounter (statuses as of 06/10/2023) Active Problems Problem Noted Date Diagnosed Date [...] 12/25/2014 Depression with anxiety 12/25/2014 Constipation 12/11/2013 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 1 08/19/2012 Intestinal postoperative nonabsorption 3 Gastric bypass status for obesity 02/19/2013 Dysphagia 10/27/2012 Degeneration of cervical intervertebral disc 03/2011 Insomnia 08/31/2009 Overview: ICD-10 update of inactive term 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 SHIN RESEARCH OTHER*[id number] 02/03/2006 Anxiety state 08/07/2005 AGORAPHOBIA 08/07/2005 Class 2 obesity without seri ous comorbidity with body mass index (BMI) of 39.0 to 39.9 in adult 04/22/2000 Overview: Per Obesity Taxonomy documented as of this encounter (statuses as of 06/10/2023) Resolved Problems Problem Noted Date Diagnosed Date [...] as of this encounter (statuses as of 06/10/2023) Immunizations Name Administration Dates Next Due 08/07/2016, [...] this encounter Progress Notes * Radha Espino automation analyst - 06/10/2023 8:20 AM EST Patient Phone Numbers LVM reminding patient she is overdue for INR check. Will follow up in 2-3 weeks if patient does notcall in result. Thank you, Radha Espino Oral Pathologist [facility] 06/10/2023,8:21 AM documented in this encounter Plan of Treatment Upcoming Encounters Date Type Department Care Team (Late st Contact Info) Description 07/01/2023 6:45 PM EST Anticoagulation Pharmacy Call Center [address] [place] [address] [facility] [address] [facility] [place] [address] 07/25/2023 1:20 PM EST Office Visit Family [facility], [place] [address] [address] [facility] [phone] Jessee Wisdom MD [address] [place] [facility] [place] [address] 09/30/2023 1:00 PM EDT Nurse Only Ancillary Department, [place] [address] [facility] [place] [address] [place] Nurse Annual Wellness [address] [facility] [address] Scheduled Procedures Name Priority Associated Diagnoses Date/Ti [...] this encounter Medical Devices Implanted Type Area Respite Coordinator Device Identifier Shelf Expiration Date Model / Serial / Lot Alloderm 2x4cm [id number] (8 Units) - [id number] - [id number] Implanted:Qty : 8 on 2015 by [place] [facility] [place] - Human N/A: Esophagus [employer] 10/21/2016 [id number] / [id number] / [id number] Stent Esoph Endomaxx [id number] - [id number] Implanted:Qty : 1 on 07/09/2013 at [facility] N/A: Esophagus [employer] 07/09/2015 KAIDEN-2315 / / [id number] Stent Esoph Endomaxx [id number] - [id number] Implanted:Qty : 1 on 12/08/2013 [place] [facility] [employer] 06/23/2016 KAIDEN-1915 / / [id number] Stent Esoph Endomaxx [id number] - [id number] Implanted:Qty : 1 on 10/19/2014 by David Rosado MD at [facility] N/A: Esophagus [employer] 05/23/2017 KAIDEN-2315 / / [id number] Stent Wallflex 27 Mm X 22 Mm [id number] Implanted:Qty : 1 on 2015 by David Rosado MD [place] [facility] N/A: Esophagus [employer] : ENDOSCOPY [id number] / / Stent Eso Gw [id number] - [id number] Implanted:Qty : 1 on 02/16/2015 by David Rosado MD [place] [facility] N/A: Esophagus [employer] 04/23/2017 92289-931 / / [id number] Plate Cslp 487.355 - [id number] Implanted:Qty : 1 on 09/27/2021 by Messi Doll MD [place] [facility] Right: Spine Cervical SYNTHES 487.355 / / [...] the patient have Health Care Power of Oil Driller? No Full Code 01/12/2015 10:35 PM 01/21/2015 4:44 PM Question Answer Comments Discussion of Advance Directives occurred with: Not Discussed Full Code 12/22/2014 4:26 AM 12/25/2014 5:53 PM This or nu reflects the patients wishes and were consensually agreed upon. Question Answer Comments Discussion of Advance Directives occurred with: Patient Care Teams Hairspring Truer Relationship Specialty Start Date End Date Jessee Wisdom MD [address] [place] [address] PCP - General Family Medicine 06/20/17 documented as of this encounter
--- OUTSIDE RECORDS SUMMARY | 2023-09-01 17:19 | External Medical Summary | Summary of Care ---
Author Name Unknown Organization [facility] Address [address] [place] [address] Phone [phone] Care Team Providers Care Assistant Surveyor Name Role Phone Jessee Wisdom MD Primary Care Provider +1- [phone] Encounter Details Date Type Department Care Team (Late st Contact Info) Description 05/23/2023 Telephone [facility] [address] [place] [address] Shelly Castaneda MD [address] [place] [address] Allergies Active Allergy Reactions Criticality [...] first month 2 mL 0 3 Active DULoxetine HCl 30 MG Oral Capsule Delayed Release Particles (Cymbalta) TAKE ONE CAPSULE BY MOUTH IN THE MORNING. DO NOT CUT, CRUSH OR CHEW 30 Capsule 5 3 Active Warfarin Sodium 5 MG Oral [...] 90 Tablet 3 3 09/13/19 24 Active Ondansetron 4 MG Oral Tablet Disintegrating (Zofran)Indications :Intractable migraine with aura with status migrainosus TAKE 1-2 TABLETS BY MOUTH EVERY 8 HOURS NEEDED FOR RELIEF OF NAUSEA 270 Tablet 3 3 01/02/20 24 Active Omeprazole 20 MG Oral Capsule [...] before breakfast. 90 Capsule 3 3 Active Trulance 3 MG Oral Tablet (Plecanatide) Take 3 mg by mouth in the morning. 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 States cost is an issue; now states Linzess is covered and no review is needed. documented in this encounter Plan of Treatment Upcoming Encounters Date Type Department Care Team (Late st Contact Info) Description 06/10/2023 6:45 PM EST Anticoagulation Pharmacy Call Center [address] [place] [address] [facility] [address] [facility] [place] [address] 07/25/2023 1:20 PM EST Office [address] [phone] Jessee Wisdom MD [address] [facility] [place] [address] 09/30/2023 1:00 PM EDT Nurse Only Ancillary Department, [address] [address] [place] Nurse Annual Wellness [address] [place] [phone] Scheduled Procedures Name Priority Associated Diagnoses Date/Ti [...] this encounter Medical Devices Implanted Type Area Belting Inspector Device Identifier Shelf Expiration Date Model / Serial / Lot Alloderm 2x4cm [id number] (8 Units) - [id number] - [id number] Implanted:Qty : 8 on 2015 by David Rosado MD at [place] [facility] Tissue - Human N/A: Esophagus [email or web address] 10/21/2016 [id number] / [id number] / [id number] Stent Esoph Endomaxx [id number] - [id number] Implanted:Qty : 1 on 07/09/2013 at [place] [facility] N/A: Esophagus [employer] 07/09/2015 KAIDEN-2315 / / [id number] Stent Esoph Endomaxx [id number] - [id number] Implanted:Qty : 1 on 12/08/2013 at [place] [facility] [employer] 06/23/2016 KAIDEN-1915 / / [id number] Stent Esoph Endomaxx [id number] - [id number] Implanted:Qty : 1 on 10/19/2014 by David Rosado MD at [place] [facility] N/A: Esophagus [employer] 05/23/2017 KAIDEN-2315 / / [id number] Stent Wallflex 27 Mm X 22 Mm [id number] Implanted:Qty : 1 on 2015 by David Rosado MD at [place] [facility] N/A: Esophagus [employer] : ENDOSCOPY [id number] / / Stent Eso Gw [id number] - [id number] Implanted:Qty : 1 on 02/16/2015 by David Rosado MD at [place] [facility] N/A: Esophagus [employer] 04/23/2017 16148-932 / / [id number] Plate lp 487.355 - [id number] Implanted:Qty : 1 on 09/27/2021 by Messi Doll MD at [place] [facility] Right: Spine Cervical SYNTHES 487.355 / / [...] the patient have Health Care Power of Bone Char Puller? No Full Code 01/12/2015 10:35 PM 01/21/2015 4:44 PM Question Answer Comments Discussion of Advance Directives occurred with: Not Discussed Full Code 12/22/2014 4:26 AM 12/25/2014 5:53 PM This or nu reflects the patients wishes and were consensually agreed upon. Question Answer Comments Discussion of Advance Directives occurred with: Patient Care Teams Assistant Surveyor Relationship Specialty Start Date End Date Jessee Wisdom MD [address] [place] [address] PCP - General Family Medicine 06/20/17 documented as of this encounter
--- OUTSIDE RECORDS SUMMARY | 2023-09-01 17:19 | External Medical Summary | Summary of Care ---
Author Name Unknown Organization [facility] Address [address] [place] [address] Phone [phone] Care Team Providers Care Business Systems Administrator Name Role Phone Jessee Wisdom MD Primary Care Provider +1- [phone] Reason for Visit * Reason Comments Medication Refill Encounter Details Date Type Department Care Team (Late st Contact Info) Description 07/06[facility] [facility] [facility] [address], [place] [id number] Michelle Roth MD [address] [place] [address] Intractable migraine with aura with status migrainosus Allergies Active Allergy Reactions Criticality Noted Date Comments Ciprofloxacin Nausea/vomiting 01/04/2023 Clindamycin Other (Please comment) 09/19/2020 Stomach pain Latex Rash 07/23/2006 Prolonged exposure only Morphine Other (Please comment) High 02/06/2020 Sulfa Antibiotics Hives 05/05/2004 documented as of this encounter (statuses as of 07/09/2023) Medications Medication Sig Dispensed Refills Start Date [...] NAUSEA 270 Tablet 0 07/09/2023 5 Active Ondansetron 4 MG Oral Tablet Disintegrating (Zofran)Indications :Intractable migraine with aura with status migrainosus TAKE 1-2 TABLETS BY MOUTH EVERY 8 HOURS NEEDED FOR RELIEF OF NAUSEA 270 Tablet 3 01/02/2023 4 Discontinu ed(Refill) documented as of this encounter (statuses as of 07/09/2023) Active Problems Problem Noted Date Diagnosed Date [...] 12/25/2014 Depression with anxiety 12/25/2014 Constipation 12/11/2013 assisted current use of 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 1 08/19/2012 Intestinal postoperative nonabsorption 3 Gastric bypass status for obesity 02/19/2013 Dysphagia 10/27/2012 Degeneration of cervical intervertebral disc 03/2011 Insomnia 08/31/2009 Overview: ICD-10 update of inactive term 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 SHIN RESEARCH OTHER*[id number] 02/03/2006 Anxiety state 08/07/2005 AGORAPHOBIA 08/07/2005 Class 2 obesity without seri ous comorbidity with body mass index (BMI) of 39.0 to 39.9 in adult 04/22/2000 Overview: Per Obesity Taxonomy documented as of this encounter (statuses as of 07/09/2023) Resolved Problems Problem Noted Date Diagnosed Date [...] as of this encounter (statuses as of 07/09/2023) Immunizations Name Administration Dates Next Due 08/07/2016, [...] encounter Miscellaneous Notes * Telephone Encounter - Leandra Kerr [facility] - 07/09/2023 10:51 AM ESTSigned Prescriptions: Disp Refills Ondansetron 4 MG Oral Tablet Disintegratin*270 Ta*0 Sig: TAKE 1-2 TABLETS BY MOUTH EVERY 8 HOURS NEEDED FOR RELIEF OF NAUSEAAuthorizing Provider: MICHELLE ROTH User: LEANDRA KERR documented in this encounter Plan of Treatment Upcoming Encounters Date Type Department Care Team (Late st Contact Info) Description 07/29/2023 6:45 PM EST Anticoagulation Pharmacy Call Center [address] [facility] [place] [address] [facility] [address] [facility] [place] [address] 08/05/2023 2:00 PM EST Office Visit [place] [address] [place] [address] [facility]dom [facility] [address] [facility] [address] 09/30/2023 1:00 PM EDT Nurse Only Ancillary Department, [place] [address] [facility] [address] [place], Nurse Annual Wellness [address] [place] [address] Scheduled Procedures Name Priority Associated Diagnoses Date/Ti [...] this encounter Medical Devices Implanted Type Area Test Director Device Identifier Shelf Expiration Date Model / Serial / Lot Alloderm 2x4cm [id number] (8 Units) - [id number] - [id number] Implanted:Qty : 8 on 2015 by David Rosado MD at OR [facility] [place] Tissue - Human N/A: Esophagus Access Systems 10/21/2016 [id number] / [id number] / [id number] Stent Esoph Endomaxx [id number] - [id number] Implanted:Qty : 1 on 07/09/2013 at OR [facility] N/A: Esophagus [employer] 07/09/2015 KAIDEN-2315 / / [id number] Stent Esoph Endomaxx [id number] - [id number] Implanted:Qty : 1 on 12/08/2013 at OR [facility] [employer] 06/23/2016 KAIDEN-1915 / / [id number] Stent Esoph Endomaxx [id number] - [id number] Implanted:Qty : 1 on 10/19/2014 by David Rosado MD at OR [facility] N/A: Esophagus [employer] 05/23/2017 KAIDEN-2315 / / [id number] Stent Wallflex 27 Mm X 22 Mm [id number] Implanted:Qty : 1 on 2015 by David Rosado MD at OR [facility] N/A: Esophagus [employer] : ENDOSCOPY [id number] / / Stent Eso Gw [id number] - [id number] Implanted:Qty : 1 on 02/16/2015 by David Rosado MD at OR [facility] N/A: Esophagus Compression [employer] 04/23/2017 [id number] / / [id number] Plate Cslp 487.355 - [id number] Implanted:Qty : 1 on 09/27/2021 by Messi Doll MD at OR [facility] Right: Spine Cervical SYNTHES 487.355 / / documented as of this encounter Visit Diagnoses Diagnosis Intractable migraine with aura with status migrainosus Migraine with aura, with intractable migraine, so stated, with status migrainosus documented in this encounter Advance Directives Latest [...] the patient have Health Care Power of Junior Assistant Manager? No Full Code 01/12/2015 10:35 PM 01/21/2015 4:44 PM Question Answer Comments Discussion of Advance Directives occurred with: Not Discussed Full Code 12/22/2014 4:26 AM 12/25/2014 5:53 PM This or nu reflects the patients wishes and were consensually agreed upon. Question Answer Comments Discussion of Advance Directives occurred with: Patient Care Teams Business Systems Administrator Relationship Specialty Start Date End Date Jessee Wisdom MD [address] [place] [address] PCP - General Family Medicine 06/20/17 documented as of this encounter
--- OUTSIDE RECORDS SUMMARY | 2023-09-01 17:20 | External Medical Summary | Summary of Care ---
Author Name Unknown Organization [facility] Address [address] [place] [address] Phone [phone] Care Team Providers Care Botany Technician Name Role Phone Jessee Wisdom MD Primary Care Provider +1- [phone] Encounter Details Date Type Department Care Team (Late st Contact Info) Description 05/14/2023 Population Health External Data Unspecified Department Allergies Active Allergy Reactions Criticality Noted Date Comments Ciprofloxacin Nausea/vomiting 01/04/2023 Clindamycin Other (Please comment) 09/19/2020 Stomach pain Latex Rash 07/23/2006 Prolonged exposure only Morphine Other (Please comment) High 02/06/2020 Sulfa Antibiotics Hives 05/05/2004 documented as of this encounter (statuses as of 05/14/2023) Medications Medication Sig Dispensed Refills Start Date [...] 1 Capsule by mouth daily before breakfast. 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 SHIN RESEARCH OTHER*[id number] 02/03/2006 Anxiety state 08/07/2005 AGORAPHOBIA 08/07/2005 Class 2 obesity without seri ous comorbidity with body mass index (BMI) of 39.0 to 39.9 in adult 04/22/2000 Overview: Per Obesity Taxonomy documented as of this encounter (statuses as of 05/14/2023) Resolved Problems Problem Noted Date Diagnosed Date [...] as of this encounter (statuses as of 05/14/2023) Immunizations Name Administration Dates Next Due 08/07/2016, [...] Description 05/17/2023 3:45 PM EST Imaging Radiology [facility] 1st [facility], [address] [place] [address] 05/21/2023 6:45 PM EST Anticoagulation Pharmacy Call Center [address] [facility] [place] [address] [facility], [facility] [address] 60 [facility] [place] [address] 07/25/2023 1:20 PM EST Office Visit Family Practice, [place] [address] [place] [facility] [place] [id number] Jessee Wisdom MD [address] [place] [address] 09/30/2023 1:00 PM EDT Nurse Only Ancillary Department, [place] [address] [place] [facility] [place] [address] [place], Nurse Annual Wellness [address] [place] [address] Scheduled Procedures Name Priority Associated Diagnoses Date/Ti [...] 08/24, 05/10/2008, Additional history exists Diabetes Screening 08/23/2025 05/13/2023, 0 08/23/2022, 07/10/2022, Additional history exists [...] this encounter Medical Devices Implanted Type Area Sandwich Counter Attendant Device Identifier Shelf Expiration Date Model / Serial / Lot Alloderm 2x4cm [id number] (8 Units) - [id number] - [id number] Implanted:Qty : 8 on 2015 by David Rosado MD at OR [facility] [place] Tissue - Human N/A: Esophagus [employer] 10/21/2016 [id number] / [id number] / [id number] Stent Esoph Endomaxx [id number] - [id number] Implanted:Qty : 1 on 07/09/2013 at OR [facility] [place] N/A: Esophagus [employer] 07/09/2015 KAIDEN-2315 / / [id number] Stent Esoph Endomaxx [id number] - [id number] Implanted:Qty : 1 on 12/08/2013 at OR [facility] [place] [employer] 06/23/2016 KAIDEN-1915 / / [id number] Stent Esoph Endomaxx [id number] - [id number] Implanted:Qty : 1 on 10/19/2014 by David Rosado MD at OR [facility] [place] N/A: Esophagus [employer] 05/23/2017 KAIDEN-2315 / / [id number] Stent Wallflex 27 Mm X 22 Mm [id number] Implanted:Qty : 1 on 2015 by David Rosado MD at OR [facility] [place] N/A: Esophagus [employer] : ENDOSCOPY [id number] / / Stent Eso Gw [id number] - [id number] Implanted:Qty : 1 on 02/16/2015 by David Rosado MD at OR [facility] [place] N/A: Esophagus [employer] 04/23/2017 [id number] / / [id number] Plate Cslp 487.355 - [id number] Implanted:Qty : 1 on 09/27/2021 by Messi Doll MD at OR [facility] [place] Right: Spine Cervical SYNTHES 487.355 / / [...] the patient have Health Care Power of Box Maker Paperboard? No Full Code 01/12/2015 10:35 PM 01/21/2015 4:44 PM Question Answer Comments Discussion of Advance Directives occurred with: Not Discussed Full Code 12/22/2014 4:26 AM 12/25/2014 5:53 PM This or nu reflects the patients wishes and were consensually agreed upon. Question Answer Comments Discussion of Advance Directives occurred with: Patient Care Teams Botany Technician Relationship Specialty Start Date End Date Jessee Wisdom MD [address] [place] [address] PCP - General Family Medicine 06/20/17 documented as of this encounter
--- OUTSIDE RECORDS SUMMARY | 2023-09-01 17:20 | External Medical Summary | Summary of Care ---
Author Name Unknown Organization [facility] Address [address] [place] [address] Phone [phone] Care Team Providers Care Lighting Equipment Operator Name Role Phone Jessee Wisdom MD Primary Care Provider +1- [phone] Reason for Visit * Reason Onset Date Comments Medication Management 05/06/2023 Encounter Details Date Type Department Care Team (Late st Contact Info) Description 05/06/2023 Telephone Neurology, [place] [address] [place] [address] Specified, [place] No Resource [address] [place] [address] Medication Management Allergies Active Allergy Reactions Criticality Noted Date [...] (Flonase)Indication s:Dysfunction of right eustachian tube Administer into each nostril 2 Sprays in the morning. 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 Dorys Pageefnelida TOVAR [id number] * Telephone Encounter - Anna Hazel - 05/06/2023 9:01 AM EST Patient verified identity by spelling of last name and date. Ashley called in stated that she received a letter reminding her that she needs to fill out a new application to renew her Emgality. She stated that she does not have an injection approved for the month of May and 2023. She stated that she does not remember how she got the paperwork and would like someone to call her back about getting the application and assistance with filling it out. Please advise. documented in this encounter Plan of Treatment Upcoming Encounters Date Type Department Care Team (Late st Contact Info) Description 05/17/2023 3:45 PM EST Imaging Radiology [facility] [address]st [facility], [address] [place] [address] 05/21/2023 6:45 PM EST Anticoagulation Pharmacy Call Center [place] [address] [place] [address] [facility] [address] [facility] [place] [address] 07/25/2023 1:20 PM EST Office Visit [address] [place] [address] Jessee Wisdom MD [address] [place] [facility] [place] [address] 09/30/2023 1:00 PM EDT Nurse Only Ancillary Department, [place] [address] [facility] [place] [id number] [place], Nurse Annual Wellness [address] [place] [facility] [place] [id number] Scheduled Procedures Name Priority Associated Diagnoses Date/Ti [...] this encounter Medical Devices Implanted Type Area House Officer Device Identifier Shelf Expiration Date Model / Serial / Lot Alloderm 2x4cm [id number] (8 Units) - [id number] - [id number] Implanted:Qty : 8 on 2015 [place] [facility] [place] - Human N/A: Esophagus [employer] 10/21/2016 [id number] / [id number] / [id number] Stent Esoph Endomaxx [id number] - [id number] Implanted:Qty : 1 on 07/09/2013 [place] [facility] [place] N/A: Esophagus [employer] 07/09/2015 KAIDEN-2315 / / [id number] Stent Esoph Endomaxx [id number] - [id number] Implanted:Qty : 1 on 12/08/2013 [place] [facility] [place] [employer] 06/23/2016 KAIDEN-1915 / / [id number] Stent Esoph Endomaxx [id number] - [id number] Implanted:Qty : 1 on 10/19/2014 by [place] Rosado [place] [facility] [place] N/A: Esophagus [employer] 05/23/2017 KAIDEN-2315 / / [id number] Stent Wallflex 27 Mm X 22 Mm [id number] Implanted:Qty : 1 on 2015 by David Rosado [place] [facility] [place] N/A: Esophagus [employer] : ENDOSCOPY [id number] / / Stent Eso Gw [id number] - [id number] Implanted:Qty : 1 on 02/16/2015 by David Rosado [place] [facility] [place] N/A: Esophagus ALVE[employer] INC 04/23/2017 [id number] / / [id number] Plate Cslp 487.355 - [id number] Implanted:Qty : 1 on 09/27/2021 by Messi Doll [place] [facility] [place] Right: Spine Cervical SYNTHES 487.355 / / [...] the patient have Health Care Power of Furnace Puncher? No Full Code 01/12/2015 10:35 PM 01/21/2015 4:44 PM Question Answer Comments Discussion of Advance Directives occurred with: Not Discussed Full Code 12/22/2014 4:26 AM 12/25/2014 5:53 PM This or nu reflects the patients wishes and were consensually agreed upon. Question Answer Comments Discussion of Advance Directives occurred with: Patient Care Teams Lighting Equipment Operator Relationship Specialty Start Date End Date Jessee Wisdom MD [address] [place] [address] PCP - General Family Medicine 06/20/17 documented as of this encounter
--- OUTSIDE RECORDS SUMMARY | 2023-09-01 17:20 | External Medical Summary | Summary of Care ---
Author Name Unknown Organization [facility] Address [address] [place] [address] Phone [phone] Care Team Providers Care Trackless Trolley Driver Name Role Phone Jessee Wisdom MD Primary Care Provider +1- [phone] Encounter Details Date Type Department Care Team (Late st Contact Info) Description 05/07/2023 Telephone [facility] [address] [place] [address] Shelly Castaneda MD [address] [place] [address] Allergies Active Allergy Reactions Criticality Noted Date Comments Ciprofloxacin Nausea/vomiting 01/04/2023 Clindamycin Other (Please comment) 09/19/2020 Stomach pain Latex Rash 07/23/2006 Prolonged exposure only Morphine Other (Please comment) High 02/06/2020 Sulfa Antibiotics Hives 05/05/2004 documented as of this encounter (statuses as of 05/07/2023) Medications Medication Sig Dispensed Refills Start Date [...] RELIEF OF NAUSEA 270 Tablet 3 01/02/2023 07/11/202 4 Active Omeprazole 20 MG Oral Capsule [...] the morning. 16 g 2 05/06/2023 Active documented as of this encounter (statuses as of 05/07/2023) Active Problems Problem Noted Date Diagnosed Date Migraine without status migrainosus, not intract able 07/10/2022 Other chronic pancreatitis 07/10/2022 Chronic pain of right ankle 04/27/2022 S/P cervical spinal fusion 04/20/2022 Gastroesophageal reflux disease without esophagi tis 08/24/2021 Recurrent major depressive disorder, in partial remission 02/09/2021 Intractable chronic migraine without aura and without status migrainosus 12/10/2016 Recurrent pulmonary emboli 07/15/2015 Iron deficiency anemia 07/15/2015 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 Selenium deficiency 01/20/2015 Overview: SELENIUM(mcg/L) Zeeshan Dt/Tm Resulted Value Low High Status 01/19/15 6:54A 01/20/15 58* 63 160 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 Chronic abdominal pain 12/25/2014 Depression with anxiety 12/25/2014 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 08/19/2012 Intestinal postoperative nonabsorption 3 Gastric bypass status for obesity 02/19/2013 Dysphagia 10/27/2012 Degeneration of cervical intervertebral disc 03/2011 Insomnia 08/31/2009 Overview: ICD-10 update of inactive term 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 SHIN RESEARCH OTHER*[id number] 02/03/2006 Anxiety state 08/07/2005 AGORAPHOBIA 08/07/2005 documented as of this encounter (statuses as of 05/07/2023) Resolved Problems Problem Noted Date Diagnosed Date Resolved Date Food insecurity 06/05/2021 08/08/2022 Overview: Per [facility] Protocol Gastric bypass status for obesity 08/18/2015 11/23/2016 [...] Excessive menstruation 11/08/200311/23 Polycystic ovaries 11/08/2003 7 Class 2 obesity with body ma ss index (BMI) of 36.0 to 36.9 in adult 04/22/2000 07/10/2022 Overview: Per Obesity Taxonomy documented as of this encounter (statuses as of 05/07/2023) Immunizations Name Administration Dates Next Due 08/07/2016, 6,11/29/2015,12/201411/05/2016 COVID-19 mRNA, LNP-s, No Pre serve, 2-Dose Series (Moderna) 10/13/2020,09/10/2020 H1N1 2009 Influenza, IM 07/29/2009 HIB PRP-T, 4 dose (ActHib) 10/25/2014 Meningococcal Conjugate Vacc ine (Menactra/Menveo) 10/25/2014 Pneumococcal Conjugate Vacc, 13 Valent (Prevnar) 10/25/2014 Pneumococcal Polysaccharide PPV23 (Pneumovax) 04/01/2020,02/21/2010 SEASONAL INFLUENZA, PF, 6 M & Above, IM , (FLULAVAL or FLUZONE) 04/20/2022,03/10/2021,03/18/2020,11/2018 Seasonal Influenza Virus Vac cine, Unspecified Formulation [...] encounter Miscellaneous Notes * Telephone Encounter - April Roberts OSA - 05/07/2023 1:54 PM EST MyG message sent. 05/07/2023 * Telephone Encounter - Shelly Castaneda MD - 05/07/2023 1:41 PM EST Please schedule mammo documented in this encounter Plan of Treatment Upcoming Encounters Date Type Department Care Team (Late st Contact Info) Description 05/10/2023 7:40 AM EST [facility] Visit [place] [address] [facility] [phone] Shelly Castaneda MD [address] [facility] [id number] 05/21/2023 6:45 PM EST Anticoagulation Pharmacy Call Center [address] [place] [address] [facility] [address] [place] [address] 07/25/2023 1:20 PM EST Office Visit [place] [address] [facility] [phone] [facility]see [facility] [address] [facility] [place] [phone] 09/30/2023 1:00 PM EDT Nurse Only Ancillary Department, [place] [address] [facility] [id number] [place], Nurse [facility] [address] [facility] [address] Scheduled Orders Name Type Priority Associated Diagnoses Orde r Schedule MAMMOGRAM SCREENING SUZI BILATERAL Medical Imaging Routine Encounter for screening mammogram for breast cancer Expected: 05/07/2023, Expires: 06/06/2024 Scheduled Procedures Name Priority Associated Diagnoses Date/Ti me COLONOSCOPY FLEXIBLE PROXIMA L DIAGNOSTIC Recall Family history of colonic polyps Health Maintenance Due Date Last Done Comments Meningitis B Vaccine (Bexsero/Trumemba) (1 of 4 - Increased Risk) 1973 MENINGOCOCCAL (MENACTRA/MENVEO) (2 - Risk 2-dose series) 12/20/2014 10/25/2014, 10/25/2014 Mammogram 03/29/2015 03/29/2014, 10/22, 09/03/2008 COVID-19 Vaccine ( season) 2023 10/13/2020, 09/10/2020 Influenza Vaccine (FLU shot) (#1) 2023 04/20/2022, 03/10/2021, 03/10/2021, Additional history exists Depression Screening 09/22/2023 09/21/2022 Lipid Panel 02/22/2025 02/23/2020, 08/24, 05/10/2008, Additional history exists Diabetes Screening 08/23/2025 08/23/2022, 0 07/10/2022, 10/30/2021, Additional history exists COLONOSCOPY-EVERY 5 YRS AGES 18-100 05/02/2027 05/02/2022, 05/02/2022, 02/14/2021, Additional history exists Pneumococcal Vaccine: Pediatrics (0 to 5 Years) and At-Risk Patients (6 to 64 Years) (4 - PPSV23 or PCV20) 01/20/2028 04/01/2020, 10/25/2014, 02/21/2010 DTaP,Tdap,and Td Vaccines (3 - Td or Tdap) 05/16/2028 05/16/2018, 05/10/2008 Zoster Vaccines Completed 03/18/2020, 05/16/2018 GARDASIL-HPV IMMUNIZATION SERIES Aged Out No longer eligible based on patient's age to complete this topic Hepatitis B Aged Out No longer eligi ble based on patient's age to complete this topic documented as of this encounter Medical Devices Implanted Type Area Product Ambassador Device Identifier Shelf Expiration Date Model / Serial / Lot Alloderm 2x4cm [id number] (8 Units) - [id number] - [id number] Implanted:Qty : 8 on 2015 by David Rosado MD at [place] [facility] [place] Tissue - Human N/A: Esophagus [employer] 10/21/2016 [id number] / [id number] / [id number] Stent Esoph Endomaxx [id number] - [id number] Implanted:Qty : 1 on 07/09/2013 at [place] [facility] [place] N/A: Esophagus [employer] 07/09/2015 KAIDEN-2315 / / [id number] Stent Esoph Endomaxx [id number] - [id number] Implanted:Qty : 1 on 12/08/2013 at [place] [facility] [place] [employer] 06/23/2016 KAIDEN-1915 / / [id number] Stent Esoph Endomaxx [id number] - [id number] Implanted:Qty : 1 on 10/19/2014 by David Rosado MD at [place] [facility] [place] N/A: Esophagus [employer] 05/23/2017 KAIDEN-2315 / / [id number] Stent Wallflex 27 Mm X 22 Mm [id number] Implanted:Qty : 1 on 2015 by David Rosado MD at [place] [facility] [place] N/A: Esophagus [employer] : ENDOSCOPY [id number] / / Stent Eso Gw [id number] - [id number] Implanted:Qty : 1 on 02/16/2015 by David Rosado MD at OR [facility] [place] N/A: Esophagus AL[employer] INC 04/23/2017 [id number] / / [id number] [facility] 487.355 - [id number] Implanted:Qty : 1 on 09/27/2021 by Messi Doll MD at OR [facility] Right: Spine Cervical SYNTHES 487.355 / / documented as of this encounter Visit Diagnoses Diagnosis Encounter for screening mammogram for breast cancer- Primary documented in this encounter Advance Directives Latest [...] the patient have Health Care Power of Chain Splitter? No Full Code 01/12/2015 10:35 PM 01/21/2015 4:44 PM Question Answer Comments Discussion of Advance Directives occurred with: Not Discussed Full Code 12/22/2014 4:26 AM 12/25/2014 5:53 PM This or nu reflects the patients wishes and were consensually agreed upon. Question Answer Comments Discussion of Advance Directives occurred with: Patient Care Teams Trackless Trolley Driver Relationship Specialty Start Date End Date Jessee Wisdom MD [address] [facility] [place] [address] PCP - General Family Medicine 06/20/17 documented as of this encounter
--- OUTSIDE RECORDS SUMMARY | 2023-09-01 17:20 | External Medical Summary | Summary of Care ---
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 1 08/19/2012 Intestinal postoperative nonabsorption 3 Gastric bypass status for obesity 02/19/2013 Dysphagia 10/27/2012 Degeneration of cervical intervertebral disc 03/2011 Insomnia 08/31/2009 Overview: ICD-10 update of inactive term 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 SHIN RESEARCH OTHER*[id number] 02/03/2006 Anxiety state 08/07/2005 AGORAPHOBIA 08/07/2005 documented [...] Description 05/10/2023 7:40 AM EST [facility] [place] [address] [facility] [phone] Shelly Castaneda MD [address] [facility] [id number] 05/21/2023 6:45 PM EST Anticoagulation Pharmacy Call Center [address] [place] [address] [facility] [address] [place] [address] 07/25/2023 1:20 PM EST [facility] Visit [place] [address] [facility] [phone] [facility] Wisdom [facility] [address] [facility] [place] [id number] 09/30/2023 1:00 PM EDT Nurse Only Ancillary Department, [place] [address] [facility] [phone] Laura, Nurse [facility] [address] [facility] [id number] Scheduled Orders Name Type Priority Associated Diagnoses [...] this encounter Medical Devices Implanted Type Area Block Inspector Device Identifier Shelf Expiration Date Model / Serial / Lot Alloderm 2x4cm [id number] (8 Units) - [id number] - [id number] Implanted:Qty : 8 on 2015 by David Rosado MD at [facility] Tissue - Human N/A: Esophagus [employer] F[employer]ASMA 10/21/2016 [id number] / [id number] / [id number] Stent Esoph Endomaxx [id number] - [id number] Implanted:Qty : 1 on 07/09/2013 at [facility] N/A: Esophagus [employer] 07/09/2015 [id number]-2315 / / [id number] Stent Esoph Endomaxx [id number] - [id number] Implanted:Qty : 1 on 12/08/2013 at [facility] [employer] 06/23/2016 [id number]-1915 / / [id number] Stent Esoph Endomaxx [id number] - [id number] Implanted:Qty : 1 on 10/19/2014 by David Rosado MD at [facility] N/A: Esophagus [employer] 05/23/2017 KAIDEN-2315 / / [id number] Stent Wallflex 27 Mm X 22 Mm [id number] Implanted:Qty : 1 on 2015 by David Rosado MD at [facility] N/A: Esophagus [employer] : ENDOSCOPY [id number] / / Stent Eso Gw [id number] - [id number] Implanted:Qty : 1 on 02/16/2015 by David Rosado MD at [facility] N/A: Esophagus [employer] 04/23/2017 [id number] / / [id number] [facility] 487.355 - [id number] Implanted:Qty : 1 on 09/27/2021 by Messi Doll MD at [facility] Right: Spine Cervical SYNTHES 487.355 / / [...] the patient have Health Care Power of Readiness Paraprofessional? No Full Code 01/12/2015 10:35 PM 01/21/2015 4:44 PM Question Answer Comments Discussion of Advance Directives occurred with: Not Discussed Full Code 12/22/2014 4:26 AM 12/25/2014 5:53 PM This or nu reflects the patients wishes and were consensually agreed upon. Question Answer Comments Discussion of Advance Directives occurred with: Patient Care Teams Military Communications Specialist Relationship Specialty Start Date End Date Jessee Wisdom MD [address] [facility] [place] [address] PCP - General Family Medicine 06/20/17 documented as of this encounter
--- OUTSIDE RECORDS SUMMARY | 2023-09-01 17:20 | External Medical Summary ---
Author Name Unknown Address Unknown Organization K01:[facility] [place] [address] [facility] [address] Laboratory Report Ordering Provider Test Date Status SCOTT PARKS 05/13/2023 12:40:29 Final Observation Date Value Abnormality Reference (Units ) Status SYNC LEUKOCYTES IN BLOOD BY AUTOMATED COUNT 05/13/2023 12:40:29 10.27 4.00-10.80 (K/uL) Final Segs 05/13/2023 12:40:29 52.3 40.0-75.0 (%) Final Lymphs % 05/13/2023 12:40:29 32.6 18.0-42.0 (%) Final Monos 05/13/2023 12:40:29 12.7 Above high normal 1.0-11.0 (%) Final Eosinophils 05/13/2023 12:40:29 1.3 0.0-6.0 (%) Final Basos 05/13/2023 12:40:29 0.9 0.0-2.0 (%) Final Immature Granulocyte, Percent 05/13/2023 12:40:29 0.2 0.0-2.0 (%) Final Absolute Segs 05/13/2023 12:40:29 5.38 1.80-7.70 (K/uL) Final Lymphs, absolute 05/13/2023 12:40:29 3.35 1.00-4.80 (K/ul) Final Monos, Abs 05/13/2023 12:40:29 1.30 Above high normal 0.00-1.10 (K/uL) Final Eos, Abs 05/13/2023 12:40:29 0.13 0.00-0.70 (K/uL) Final Basos, Abs 05/13/2023 12:40:29 0.09 0.00-0.20 (K/uL) Final Immature Granulocytes, Number 05/13/2023 12:40:29 0.02 0.00-0.20 (K/uL) Final Performing Location [facility] [place] [address] [facility] [address]
--- OUTSIDE RECORDS SUMMARY | 2023-09-01 17:20 | External Medical Summary | Summary of Care ---
Author Name Unknown Organization [facility] Address [address] [place] [address] Phone [phone] Care Team Providers Care Yield Improvement Engineer Name Role Phone Jessee Wisdom MD Primary Care Provider [phone] Reason for Visit * Reason Comments Physical-Exam Would like RSV vacci ne as well Would like pneumonia vaccine as well Encounter Details Date Type Department Care Team (Latest Contact Info) Description 05/13/2023 11:40 AM EST Office Visit [facility] [address] [place] [address] Shelly Castaneda MD [address] [place] [address] Physical exam, annual*; Chronic abdominal pain; Gastric bypass status for obesity; Postgastric surgery syndrome; Intestinal postoperative nonabsorption; Other chronic pancreatitis (HCC); Recurrent pulmonary emboli (HCC); Constipation, unspecified constipation type; Class 2 obesity without serious comorbidity with body mass index (BMI) of 39.0 to 39.9 in adult, unspecified obesity type; Migraine variant, intractable Allergies Active Allergy Reactions Criticality Noted Date Comments Ciprofloxacin Nausea/vomiting 01/04/2023 Clindamycin Other (Please comment) 09/19/2020 Stomach pain Latex Rash 07/23/2006 Prolonged exposure only Morphine Other (Please comment) High 02/06/2020 Sulfa Antibiotics Hives 05/05/2004 documented as of this encounter (statuses as of 05/13/2023) Medications Medication Sig Dispensed Refills Start Date [...] before breakfast. 30 Capsule 11 05/13/2023 Active RSVPreF3 Vac Recomb Adjuvanted 120 MCG/0.5ML Intramuscular Suspension Reconstituted Inject 0.5 mL into a large muscle once for 1 dose. 1 Each 0 05/13/2023 3 Active documented as of this encounter (statuses as of 05/13/2023) Active Problems Problem Noted Date Diagnosed Date [...] 12/25/2014 Depression with anxiety 12/25/2014 Constipation 12/11/2013 skilled nursing current use of 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 1 08/19/2012 Intestinal postoperative nonabsorption 3 Gastric bypass status for obesity 02/19/2013 Dysphagia 10/27/2012 Degeneration of cervical intervertebral disc 03/2011 Insomnia 08/31/2009 Overview: ICD-10 update of inactive term 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 SHIN RESEARCH OTHER*[id number] 02/03/2006 Anxiety state 08/07/2005 AGORAPHOBIA 08/07/2005 Class 2 obesity without seri ous comorbidity with body mass index (BMI) of 39.0 to 39.9 in adult 04/22/2000 Overview: Per Obesity Taxonomy documented as of this encounter (statuses as of 05/13/2023) Resolved Problems Problem Noted Date Diagnosed Date [...] as of this encounter (statuses as of 05/13/2023) Immunizations Name Administration Dates Next Due 08/07/2016, [...] 3 Q uit: 02/13/2020 Smokeless Tobacco: Never Tobacco Cessation:Counseling Given: Not [...] Sign Reading Time Taken Comments Blood Pressure 112/74 05/13/2023 11:17 AM EST Pulse 85 05/13/2023 11:17 AM EST Temperature 36.4 C (97.5 F) 05/13/2023 1 1:17 AM EST Respiratory Rate 17 05/13/2023 11:1 7 AM EST Oxygen Saturation 96% 05/13/2023 11: 17 AM EST Inhaled Oxygen Concentration - - Weight 112.1 kg (247 lb 1.6 oz) 023 11:17 AM EST Height - - Body Mass Index 39.88 03/01/2023 5:57 PM EDT documented in this [...] Progress Notes * Shelly Castaneda MD - 05/13/2023 12:04 PM EST Subjective Ashley Morales is a 58 year old female. Chief Complaint Patient presents with Physical-Exam Would like RSV vaccine as well Would like pneumonia vaccine as well HPI: Here for annual check up Will bring the form to sign soon - disability form Mammogram - scheduled this month Colonsocopy 2022 S/p hysterectomy Sp gastric bypass , intestinal malabsorption Chronic idiopathic constipation ,with chronic abd pain Current BMI 39 -some weight gain Has tried miralax twice daily , stool softener, fiber, probiotic, all the OTC meds for constipation But her constipation has been getting worse Will try linzess Drinks gallon amount water Recurrent PE - on coumadin Flu vaccine today Will send out RSV vaccine Migraine occ but has been stable PMH: Patient Active Problem List Diagnosis Code Class 2 obesity without serious comorbidity with body mass index (BMI) of 39.0 to 39.9 in kgdkmG38.9, Z68.39 Anxiety state F41.1 AGORAPHOBIA F40.02 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 Insomnia G47.00 SHIN RESEARCH OTHER*[id number] Degeneration of cervical intervertebral disc M50.30 Dysphagia R13.10 Gastric bypass status for obesity Z98.84 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 skilled nursing current use of 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 Z79.01 Constipation [...] pancreatitis (HCC) K86.1 Migraine variant, intractable G43.819 Current Outpatient Medications Medication Sig Dispense Refill [...] Tablet (Calcium 600+D) Take by mouth 1 Tablet2 times a day . 60 Tablet 5 One-A-Day Womens 50+ Oral Tablet Take by mouth daily. Galcanezumab-gnlm 120 MG/ML Subcutaneous Solution Auto-injector (Emgality) Inject 240 mg (two 1mL injections) under the skin as a loading dose the first month 2 mL 0 DULoxetine HCl 30 MG Oral Capsule Delayed Release Particles (Cymbalta) TAKE ONE CAPSULE BY MOUTH IN THE MORNING. DO NOT CUT, CRUSH OR CHEW 30 Capsule 5 Warfarin Sodium 5 MG Oral Tablet (Coumadin) TAKE ONE-HALF TO ONE TABLET BY MOUTH ONCE DAILY, ORAS DIRECTED BY COUMADIN CLINIC 90 Tablet 1 buPROPion HCl ER (XL) 300 MG Oral [...] DAY IN THE MORNING 90 Tablet 3 Ondansetron 4 MG Oral Tablet Disintegrating (Zofran) TAKE 1-2 TABLETS BY MOUTH EVERY 8 HOURS ASNEEDED FOR RELIEF OF NAUSEA 270 Tablet 3 Omeprazole 20 MG Oral Capsule Delayed Release (PriLOSEC) TAKE 1 CAPSULE BY MOUTH 2 TIMES A DAY,30 MINUTES BEFORE MORNING AND EVENING MEALS 180 [...] every night at bedtime 30 Tablet 5 Pantoprazole Sodium 40 MG Oral Tablet Delayed Release (Protonix) Take 1 Tablet by mouth in the morning. 30 minutes before the first meal of the day. Do not crush, split or chew the tablet. 30 Tablet 5 Fluticasone Propionate 50 MCG/ACT Nasal Suspension (Flonase) Administer 2 Sprays into each nostril in the morning. 16 g 2 Linzess 290 MCG Oral Capsule (linaCLOtide) Take 1 Capsule by mouth daily before breakfast. 30 Capsule 11 RSVPreF3 Vac Recomb Adjuvanted 120 MCG/0.5ML Intramuscular Suspension Reconstituted Inject 0.5 mL into a large muscle once for 1 dose. 1 Each 0 No current facility-administered medications for this visit. [...] STRUCTURAL performed by Messi Doll MD at [facility] ARTHRODESIS, ANT INTERBODY, BELOW C-2 Right 09/27/2021 ARTHRODESIS, ANT INTERBODY, BELOW C-2 performed by Messi Doll MD at [facility] ARTHRODESIS,ANT INTERBODY,BELOW C-2,EA ADDL Right 09/27/2021 ARTHRODESIS,ANT INTERBODY,BELOW C-2,EA ADDL performed by Messi Doll MD at [facility] COLONOSCOPY 08/02/2008 Repeat 5 yrs COLONOSCOPY, DIAGNOSTIC (RECTUM) 01/24/2016 normal, repeat 5 yrs/[facility] COLONOSCOPY, DIAGNOSTIC (RECTUM) 02/14/2021 poor prep, repeat 1 yr / COLONOSCOPY FLEXIBLE PROXIMAL DIAGNOSTIC performed by Charline Farooq MD at [facility] COLONOSCOPY, DIAGNOSTIC (RECTUM) 05/02/2022 normal, repeat 5 yrs / COLONOSCOPY FLEXIBLE PROXIMAL DIAGNOSTIC performed by Charline Farooq MD at [facility] COLORECTAL CANCER SCREEN; COLON 11/03/1999 Due 2004 EGD, FLEXIBLE, DIAGNOSTIC 09/26/2012 path shows mild inflammation of esophagus consistant with acid reflux negative for Barretts and mild irritation ofstomach negative for H Pylori EGD, FLEXIBLE, DIAGNOSTIC 12/08/2013 ESOPHAGOGASTRODUODENOSCOPY (EGD), FLEXIBLE, TRANSORAL, DIAGNOSTIC performed by Sabina Guillory III, MD at [facility] EGD, FLEXIBLE, DIAGNOSTIC 02/16/2014 ESOPHAGOGASTRODUODENOSCOPY (EGD), FLEXIBLE, TRANSORAL, DIAGNOSTIC performed by Sabina Guillory III, MD at [facility] EGD, FLEXIBLE, DIAGNOSTIC 01/28/2014 Pre-existing esophageal stent- removal unsuccessful/inpt @ [facility] EGD, FLEXIBLE, DIAGNOSTIC N/A 05/19/2014 ESOPHAGOGASTRODUODENOSCOPY (EGD), FLEXIBLE, TRANSORAL, DIAGNOSTIC performed by Sabina Guillory III, MD at [facility] EGD, FLEXIBLE, DIAGNOSTIC N/A 09/08/2014 ESOPHAGOGASTRODUODENOSCOPY (EGD), FLEXIBLE, TRANSORAL, DIAGNOSTIC performed by Sabina Guillory III, MD at [facility] EGD, FLEXIBLE, DIAGNOSTIC N/A 10/16/2014 ESOPHAGOGASTRODUODENOSCOPY (EGD), FLEXIBLE, TRANSORAL, DIAGNOSTIC performed by Sabina Guillory III, MD at [facility] EGD, FLEXIBLE, DIAGNOSTIC 11/23/2014 ESOPHAGOGASTRODUODENOSCOPY (EGD), FLEXIBLE, TRANSORAL, DIAGNOSTIC performed by Sabina Guillory MD at [facility] EGD, FLEXIBLE, DIAGNOSTIC 01/05/2015 ESOPHAGOGASTRODUODENOSCOPY (EGD), FLEXIBLE, TRANSORAL, DIAGNOSTIC performed by Sabina Guillory MD at [facility] EGD, FLEXIBLE, DIAGNOSTIC N/A 2015 ESOPHAGOGASTRODUODENOSCOPY (EGD), FLEXIBLE, TRANSORAL, DIAGNOSTIC performed by Sabina Guillory MD at [facility] EGD, FLEXIBLE, DIAGNOSTIC N/A 02/16/2015 ESOPHAGOGASTRODUODENOSCOPY (EGD), FLEXIBLE, TRANSORAL, DIAGNOSTIC performed by Sabina Guillory MD at [facility] EGD, FLEXIBLE, DIAGNOSTIC N/A 06/15/2015 ESOPHAGOGASTRODUODENOSCOPY (EGD), FLEXIBLE, TRANSORAL, DIAGNOSTIC performed by Sabina Guillory MD at [facility] EGD, FLEXIBLE, DIAGNOSTIC N/A 10/12/2015 ESOPHAGOGASTRODUODENOSCOPY (EGD), FLEXIBLE, TRANSORAL, DIAGNOSTIC performed by Sabina Guillory MD at [facility] EGD, FLEXIBLE, DIAGNOSTIC 12/23/2018 normal/ESOPHAGOGASTRODUODENOSCOPY (EGD), FLEXIBLE, TRANSORAL, DIAGNOSTIC performed by Radha Montejo DO at [facility] EGD, FLEXIBLE, DIAGNOSTIC 08/12/2020 normal / ESOPHAGOGASTRODUODENOSCOPY (EGD), FLEXIBLE, TRANSORAL, DIAGNOSTIC performed by Clarence Goins MD at [facility] EGD, FLEXIBLE, INSERT WIRE, PASS DILATOR 03/07/2007 UPPER GI ENDOSCOPY WITH GUIDE WIRE DILATION performed by SABINA GUILLORY III at [facility] EGD, FLEXIBLE, REMOVE FOREIGN BODY 11/02/2013 ESOPHAGOGASTRODUODENOSCOPY (EGD), FLEXIBLE, TRANSORAL, WITH REMOVAL FOREIGN BODY performed by Sabina Guillory III, MD at [facility] EGD, FLEXIBLE, REMOVE FOREIGN BODY 02/04/2014 ESOPHAGOGASTRODUODENOSCOPY (EGD), FLEXIBLE, TRANSORAL, WITH REMOVAL FOREIGN BODY performed by Sabina Guillory III, MD at [facility] EGD, FLEXIBLE, REMOVE FOREIGN BODY 02/11/2014 ESOPHAGOGASTRODUODENOSCOPY (EGD), FLEXIBLE, TRANSORAL, WITH REMOVAL FOREIGN BODY performed by Sabina Guillory III, MD at [facility] EGD, FLEXIBLE, REMOVE FOREIGN BODY N/A 06/15/2015 ESOPHAGOGASTRODUODENOSCOPY (EGD), FLEXIBLE, TRANSORAL, WITH REMOVAL FOREIGN BODY performed by Sabina Guillory MD at [facility] EGD, FLEXIBLE, TRANSENDOSCOPIC DILATION <30MM N/A 2015 ESOPHAGOGASTRODUODENOSCOPY (EGD), FLEXIBLE, TRANSORAL, BALLOON DILATION LESS THAN 30MM performed bySabina Guillory MD at [facility] EGD, FLEXIBLE, TRANSENDOSCOPIC DILATION <30MM N/A 02/16/2015 ESOPHAGOGASTRODUODENOSCOPY (EGD), FLEXIBLE, TRANSORAL, BALLOON DILATION LESS THAN 30MM performed bySabina Guillory MD at [facility] EGD, FLEXIBLE, W/DILATE STRICTURES 02/11/2014 ESOPHAGOGASTRODUODENOSCOPY (EGD), FLEXIBLE, TRANSORAL, DILATION GASTRIC OUTLET performed by Yesenia Guillory III, MD at [facility] EGD, FLEXIBLE,ENDO STENT PLACEMENT N/A 10/19/2014 ESOPHAGOGASTRODUODENOSCOPY (EGD), FLEXIBLE, TRANSORAL: STENT PLACEMENT performed by Sabina Guillory III, MD at [facility] EGD, FLEXIBLE,ENDO STENT PLACEMENT N/A 2015 ESOPHAGOGASTRODUODENOSCOPY (EGD), FLEXIBLE, TRANSORAL: STENT PLACEMENT performed by Sabina Guillory MD at [facility] EGD, FLEXIBLE,ENDO STENT PLACEMENT N/A 02/16/2015 ESOPHAGOGASTRODUODENOSCOPY (EGD), FLEXIBLE, TRANSORAL: STENT PLACEMENT performed by Sabina Guillory MD at [facility] EGD, FLEXIBLE,W/ENDOSCOPIC US 02/12/2020 normal / [facility] ESOPHAGOSCOPY, FLEXIBLE, TRANSENDOSCOPIC DILATION <30MM 07/09/2013 ESOPHAGOSCOPY BALLOON DILATION LESS THAN 30MM performed by Sabina Guillory III, MD at [facility] EXPLORATION OF ABDOMEN 05/14/2013 EXPLORATORY LAPAROTOMY performed by Sabina Guillory III, MD at [facility] EXPLORATION OF ABDOMEN N/A 10/16/2014 EXPLORATORY LAPAROTOMY performed by Sabina Guillory III, MD at [facility] EXPLORATION OF ABDOMEN N/A 10/19/2014 EXPLORATORY LAPAROTOMY performed by Sabina Guillory III, MD at [facility] GASTRIC REVISION FOR OBESITY 08/08/2006 Performed by SABINA GUILLORY III at [facility] Log [id number] INJECT DX/THER SUBSTANCE INTERLAMINAR CERVICAL/THORACIC W IMAGE GUIDE N/A 01/23/2021 INJECTION SPINE LUMBAR CERVICAL OR THORACIC performed by Adolfo Brooks DO at OR [facility] IOF CT GUIDED NEEDLE BIOPSY 05/18/2013 CT GUIDED NEEDLE ASPIRATION BIOPSY performed by Kenneth Greenwood PA-C at RADIOLOGY [facility] IR DRAINAGE ABSCESS/SPECIMEN W CATHETER PLACEMENT 07/14/2013 RADIOLOGICAL GUIDANCE FOR ABSCESS DRAINAGE performed by Kenneth Greenwood PA-C at RADIOLOGY [facility] IR DRAINAGE ABSCESS/SPECIMEN W CATHETER PLACEMENT 08/14/2013 RADIOLOGICAL GUIDANCE FOR ABSCESS DRAINAGE performed by Kenneth Greenwood PA-C at RADIOLOGY [facility] IR US GUIDED THORACENTESIS 05/20/2013 THORACENTESIS FOR ASPIRATION W/ IMAGING performed by Amy Curry MD at RADIOLOGY [facility] REMOVAL OF SPLEEN, TOTAL, EN BLOC N/A 10/16/2014 SPLENECTOMY TOTAL WITH OTHER PROCEDURE performed by Sabina Guillory III, MD at [facility] REMOVE GALLBLADDER REMOVE STOMACH, PARTIAL 05/07/2013 GASTRECTOMY PARTIAL WITH GASTROJEJUNOSTOMY performed by Sabina Guillory III, MD at [facility] REVISION OF ANKLE JOINT right SPINE FIX DEV, ANT, 4-7 SEG, INSERT Right 09/27/2021 ANTERIOR INSTRUMENTATION 4 TO 7 VERTEBRAL SEGMENTS performed by Messi Doll MD at [facility] TOTAL ABD HYSTERECTOMY W/WO REMOVAL OF TUBE(S) 10/02/2010 ABISAI/BSO WEDGE BIOPSY OF LIVER 08/08/2006 Performed by SABINA GUILLORY III at OR [facility] Log [id number] WEDGE BIOPSY OF LIVER 05/07/2013 BIOPSY OF LIVER WEDGE performed by Sabina Guillory III, MD at OR [facility] Review of patient's allergies indicates: Allergen Reactions [...] Types: Cigarettes Quit date: 02/13/2020 Years since quittin.2 Smokeless tobacco: Never Vaping Use Vaping Use: [...] file Review of Systems Constitutional: Positive for fatigue. Negative for activity change, appetite change, chills, diaphoresis, fever and unexpected weight change. HENT: Negative for hearing loss and sore throat. Eyes: Negative for visual disturbance. Respiratory: Negative for cough, chest tightness, shortness of breath and wheezing. Cardiovascular: Positive for palpitations (occ). Negative for chest pain and leg swelling. Gastrointestinal: Positive for abdominal pain (upper abd). Negative for abdominal distention, nausea and vomiting. Endocrine: Negative. Genitourinary: Negative for menstrual problem and pelvic pain. Musculoskeletal: Positive for arthralgias and neck pain. Neurological: Negative for dizziness, tremors, weakness, light-headedness, numbness and headaches. Psychiatric/Behavioral: Positive for dysphoric mood (mild) and sleep disturbance. Negative for agitation and behavioral problems. The patient is nervous/anxious. Objective BP 112/74 | Pulse 85 | Temp 36.4 C (97.5 F) | Resp 17 | Wt 112.1 kg (247 lb 1.6 oz) | LMP 09/03/2010 | SpO2 96% | BMI 39.88 kg/m | BSA 2.28 m Physical Exam Constitutional: General: She is [...] rales. Chest: Chest wall: No tenderness. Abdominal: Palpations: Abdomen is soft. Tenderness: There is no abdominal tenderness. Musculoskeletal: Cervical back: Tenderness present. Right lower leg: No edema. Left lower leg: No edema. Neurological: General: No focal deficit present. Mental Status: She is alert and oriented to person, place, and time. Cranial Nerves: No cranial nerve deficit. Psychiatric: Mood and Affect: Mood normal. Behavior: Behavior normal. 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 - TSH WITH FREE T4 IF INDICATED; Future; Expected date: 05/13/2023 - TISSUE TRANSGLUTAMINASE IGA ANTIBODY; Future; Expected date: 05/13/2023 - LIPASE; Future; Expected date: 05/13/2023 - COMPREHENSIVE METABOLIC PANEL; Future; Expected date: 05/13/2023 - CBC WITH WBC DIFFERENTIAL; Future; Expected date: 05/13/2023 Other chronic pancreatitis (HCC) - LIPASE; Future; Expected date: 05/13/2023 - COMPREHENSIVE METABOLIC PANEL; Future; Expected date: 05/13/2023 - CBC WITH WBC DIFFERENTIAL; Future; Expected date: 05/13/2023 Recurrent pulmonary emboli (HCC) - COMPREHENSIVE METABOLIC PANEL; Future; Expected date: 05/13/2023 - CBC WITH WBC DIFFERENTIAL; Future; Expected date: 05/13/2023 Constipation, unspecified constipation type - TSH WITH FREE T4 IF INDICATED; Future; Expected date: 05/13/2023 Class 2 obesity without serious comorbidity with body mass index (BMI) of 39.0 to 39.9 in adult, unspecified obesity type Migraine variant, intractable Other orders - INFLUENZA VACC, QUAD, PF, 6 MONTHS & UP, 0.5 ML, IM - Linzess 290 MCG Oral Capsule (linaCLOtide); Take 1 Capsule by mouth daily before breakfast. - RSVPreF3 Vac Recomb Adjuvanted 120 MCG/0.5ML Intramuscular Suspension Reconstituted; Inject 0.5 mL into a large muscle once for 1 dose. --> Discussed with patient: -HEALTH PROMOTION: Adequate sleep (8-10 hours/night), regular exercise, balanced diet, dental care,limiting sedentary activities (TV, computer, Internet) -MENTAL HEALTH: Discuss feelings with an someone that they can trust -INJURY PREVENTION: Driving Safety, Seat Belts, Sun Safety, No Weapons, Conflict Resolution, Personal Safety -SUBSTANCE ABUSE: Tobacco, Drugs, Alcohol F/u blood tests Johnny Castaneda MD documented in this encounter Nursing Notes * Maureen Vogt LPN - 05/13/2023 11:23 AM EST The patient has been properly identified by confirmation of name and date of . Chief Complaint Patient presents with Physical-Exam Would like RSV vaccine as well Would like pneumonia vaccine as well Bowel issues is having trouble due to not having linzes and miralax is not helping documented in this encounter Plan of Treatment Upcoming Encounters Date Type Department Care Team (Late st Contact Info) Description 05/17/2023 3:45 PM EST Imaging Radiology [facility] [facility], [address] [place] [address] 05/21/2023 6:45 PM EST Anticoagulation Pharmacy Call Center [address] [facility] [place] [address] [facility], [facility] [address] [facility] [place] [address] 07/25/2023 1:20 PM EST Office [facility] [place] [address] [id number] Jessee Wisdom MD [address] [place] [facility] [place] [address] 09/30/2023 1:00 PM EDT Nurse Only Ancillary Department, [place] [address] [address] [place], Nurse Annual Wellness [address] [place] [place] [address] Pending Results Name Type Priority Associated Diagnoses Date /Time TSH WITH FREE T4 IF INDICATED Lab Routine Chronic abdominal pain Intestinal postoperative nonabsorption Constipation, unspecified constipation type 05/13/2023 12:40 PM EST TISSUE TRANSGLUTAMINASE IGA ANTIBODY Lab Routine Chronic abdominal pain Intestinal postoperative nonabsorption 05/13/2023 12:40 PM EST LIPASE Lab Routine Intestinal postoperative nonabsorption Other chronic pancreatitis (HCC) 05/13/2023 12:40 PM EST Scheduled Orders Name Type Priority Associated Diagnoses Orde r Schedule TSH WITH FREE T4 IF INDICATED Lab Routine Chronic abdominal pain Intestinal postoperative nonabsorption Constipation, unspecified constipation type Expected: 05/13/2023 (Approximate), Expires: 05/12/2024 TISSUE TRANSGLUTAMINASE IGA ANTIBODY Lab Routine Chronic abdominal pain Intestinal postoperative nonabsorption Expected: 05/13/2023 (Approximate), Expires: 05/12/2024 LIPASE Lab Routine Intestinal postoperative nonabsorption Other chronic pancreatitis (HCC) Expected: 05/13/2023 (Approximate), Expires: 05/12/2024 Scheduled Procedures Name Priority Associated Diagnoses Date/Ti [...] this encounter Medical Devices Implanted Type Area Imaging Manager Device Identifier Shelf Expiration Date Model / Serial / Lot Alloderm 2x4cm [id number] (8 Units) - [id number] - [id number] Implanted:Qty : 8 on 2015 by Sabina Guillory MD at [facility] Tissue - Human N/A: Esophagus [employer] 10/21/2016 [id number] / [id number] Stent Esoph Endomaxx [id number] - [id number] Implanted:Qty : 1 on 07/09/2013 at [facility] N/A: Esophagus [employer] 07/09/2015 [id number] / / [id number] Stent Esoph Endomaxx [id number] - [id number] Implanted:Qty : 1 on 12/08/2013 at [facility] [employer] 06/23/2016 [id number]-[id number] / / [id number] Stent Esoph Endomaxx [id number] - [id number] Implanted:Qty : 1 on 10/19/2014 by Sabina Guillory MD at [facility] N/A: Esophagus [employer] 05/23/2017 [id number]-[id number] / / [id number] Stent Wallflex 27 Mm X 22 Mm [id number] Implanted:Qty : 1 on 2015 by Sabina Guillory MD at [facility] N/A: Esophagus [employer] : ENDOSCOPY [id number] / / Stent Eso Gw [id number] - [id number] Implanted:Qty : 1 on 02/16/2015 by Sabina Guillory MD at [facility] N/A: Esophagus [employer] 04/23/2017 [id number] / / [id number] Plate [facility] [id number] - [id number] Implanted:Qty : 1 on 09/27/2021 by Messi Doll MD at [facility] Right: Spine Cervical SYNTHES 487.355 / / documented as of this encounter Visit Diagnoses Diagnosis Physical exam, annual- Primary Routine general medical examination at a health care facility Chronic abdominal pain Abdominal pain, unspecified site Gastric bypass status for obesity Bariatric surgery status Postgastric surgery syndrome Postgastric surgery syndromes Intestinal postoperative nonabsorption Other and unspecified postsurgical nonabsorption Other chronic pancreatitis (HCC) Recurrent pulmonary emboli (HCC) Other pulmonary embolism and infarction Constipation, unspecified constipation type Class 2 obesity without serious comorbidity with body mass index (BMI) of 39.0 to 39.9 in adult, unspecified obesity type Migraine variant, intractable Variants of migraine, not elsewhere classified, with intractable migraine, so stated, without mention of status migrainosus documented in this encounter Advance [...] the patient have Health Care Power of Stonemason? No Full Code 01/12/2015 10:35 PM 01/21/2015 4:44 PM Question Answer Comments Discussion of Advance Directives occurred with: Not Discussed Full Code 12/22/2014 4:26 AM 12/25/2014 5:53 PM This or nu reflects the patients wishes and were consensually agreed upon. Question Answer Comments Discussion of Advance Directives occurred with: Patient Care Teams Yield Improvement Engineer Relationship Specialty Start Date End Date Jessee Wisdom MD [address] [place] [place] [address] PCP - General Family Medicine 06/20/17 documented as of this encounter"
--- OUTSIDE RECORDS SUMMARY | 2023-09-01 17:20 | External Medical Summary ---
Author Name Unknown Address Unknown Organization [id number]:[place] [facility] [place] [facility] [address] [facility] [address] Laboratory Report Ordering Provider Test Date Status SCOTT PARKS 05/13/2023 12:40:29 Final Observation Date Value Abnormality Reference (Units ) Status WBC, Total 05/13/2023 12:40:29 10.27 4.00-10.80 (K/uL) Final RBC 05/13/2023 12:40:29 5.42 3.85-5.15 (M/uL) Final Hemoglobin 05/13/2023 12:40:29 16.2 Above high normal 12.0-15.3 (g/dL) Final HCT 05/13/2023 12:40:29 49.6 Above high normal 36.0-45.2 (%) Final MCV 05/13/2023 12:40:29 91.5 81.5-97.5 (fL) Final MCH 05/13/2023 12:40:29 29.9 27.0-34.0 (pg) Final MCHC 05/13/2023 12:40:29 32.7 32.0-36.0 (g/dL) Final RDW 05/13/2023 12:40:29 16.6 11.5-15.5 (%) Final Platelets 05/13/2023 12:40:29 391 140-400 (K/uL) Final MPV 05/13/2023 12:40:29 10.8 6.6-11.1 (fL) Final Nucleated erythrocytes/100 leukocytes [Ratio] in Blood by Automated count 05/13/2023 12:40:29 0 <=0 (/100 WBCs) Final Performing Location [place] [facility] [place] [address] [facility] [address] [facility] [address]
--- OUTSIDE RECORDS SUMMARY | 2023-09-01 17:20 | External Medical Summary ---
Author Name Unknown Address Unknown Organization K01:LABORATORY [address] [place] [facility] [address] Laboratory Report Ordering Provider Test Date Status SCOTT PARKS 05/13/2023 12:40:29 Final Rheumatoid factor at a level above [...] [Mass/volume] in Platelet poor plasma by Immunoassay 05/13/2023 12:40:29 0.31 <0.50 (ug/mL FEU) Final Performing Location LABORATORY [facility] [place] - [facility]– [place][note 2] [place] [address]
--- OUTSIDE RECORDS SUMMARY | 2023-09-01 17:20 | External Medical Summary ---
Author Name Unknown Address Unknown Organization K01:LABORATORY [facility] [place] - [address] [place] [address] Laboratory Report Ordering Provider Test Date Status SCOTT PARKS 05/13/2023 12:40:29 Final Observation Date Value Abnormality Reference (Units ) Status BUN 05/13/2023 12:40:29 22 Above high normal 6-20 (mg/dL) Final Creatinine 05/13/2023 12:40:29 0.8 0.5-1.0 (mg/dL) Final Glomerular filtration rate/1.73 sq M.predicted [Volume Rate/Area] in Serum, Plasma or Blood by Creatinine-based formula (CKD-EPI) 05/13/2023 12:40:29 83 >=60 (mL/min) Final eGFR is calculated based on the CKD-EPI 2020 equation SODIUM 05/13/2023 12:40:29 140 135-146 (m mol/L) Final Potassium 05/13/2023 12:40:29 4.8 3.5-5.1 (m mol/L) Final Cl 05/13/2023 12:40:29 102 98-107 (mm ol/L) Final CO2 05/13/2023 12:40:29 25 22-32 (mmo l/L) Final Anion gap 05/13/2023 12:40:29 13 7-15 (mmol /L) Final Glucose 05/13/2023 12:40:29 78 70-120 (mg /dL) Final Albumin 05/13/2023 12:40:29 4.4 3.8-5.0 (g /dL) Final AST (Aspartate aminotransferase) 05/13/2023 12:40:29 77 Above high normal 10-35 (U/L) Final Alk Phos 05/13/2023 12:40:29 142 Above high normal 35 -130 (U/L) Final Bilirubin, Total 05/13/2023 12:40:29 0.2 <=1 .2 (mg/dL) Final Calcium 05/13/2023 12:40:29 9.6 8.4-10.2 ( mg/dL) Final Protein 05/13/2023 12:40:29 7.5 6.0-8.3 (g /dL) Final ALT (Alanine aminotransferase) 05/13/2023 12:40:29 117 Above high normal 10-35 (U/L) Final Performing Location LABORATORY [facility] [place] - [address] [facility] [address]
--- OUTSIDE RECORDS SUMMARY | 2023-09-01 17:20 | External Medical Summary | Summary of Care ---
Author Name Unknown Organization [facility] Address [address] [place] [address] Phone [phone] Care Team Providers Care Medical Support Assistant Name Role Phone Jessee Wisdom MD Primary Care Provider +1- [phone] Reason for Visit * Reason Comments Outpatient Testing Encounter Details Date Type Department Care Team (Late st Contact Info) Description 05/13/2023 12:40 PM EST Laboratory Laboratory, [place] [address] [place] [address] [facility] [address] [place] [address] Fluttering heart; Chest pain, unspecified type; Heartburn; Chronic abdominal pain; Intestinal postoperative nonabsorption; Constipation, unspecified constipation type; Other chronic pancreatitis (HCC); Recurrent pulmonary emboli (HCC) Allergies Active Allergy Reactions Criticality Noted Date [...] 12/25/2014 Depression with anxiety 12/25/2014 Constipation 12/11/2013 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 [place] [address] [facility] [address] [facility] [place] [address] 07/25/2023 1:20 PM EST Office Visit Family Practice, [place] [address] [facility] [place] [address] Jessee Wisdom MD [address] [facility] [place] [address] 09/30/2023 1:00 PM EDT Nurse Only Ancillary Department, [place] [address] [facility] [place] [address] [place] Nurse Annual Well[facility] [address] [facility] [place] [address] Pending Results Name Type Priority Associated Diagnoses Date /Time TROPONIN T, HIGH SENSITIVITY Lab Routine Fluttering heart Chest pain, unspecified type Heartburn 05/13/2023 12:40 PM EST D-DIMER Lab Routine Fluttering heart Chest pain, unspecified type Heartburn 05/13/2023 12:40 PM EST CBC WITH WBC DIFFERENTIAL Lab Routine Fluttering heart Chest pain, unspecified type Heartburn 05/13/2023 12:40 PM EST COMPREHENSIVE METABOLIC PANEL Lab Routine Fluttering heart Chest pain, unspecified type Heartburn 05/13/2023 12:40 PM EST TSH WITH FREE T4 IF INDICATED Lab Routine Chronic abdominal pain Intestinal postoperative nonabsorption Constipation, unspecified constipation type 05/13/2023 12:40 PM EST TISSUE TRANSGLUTAMINASE IGA ANTIBODY Lab Routine Chronic abdominal pain Intestinal postoperative nonabsorption 05/13/2023 12:40 PM EST LIPASE Lab Routine Intestinal postoperative nonabsorption Other chronic pancreatitis (HCC) 05/13/2023 12:40 PM EST CBC Lab Routine Fluttering heart Chest pain, unspecified type Heartburn 05/13/2023 12:40 PM EST DIFFERENTIAL, AUTOMATED Lab Routine Fluttering heart Chest pain, unspecified type Heartburn 05/13/2023 12:40 PM EST Scheduled Procedures Name Priority Associated Diagnoses [...] this encounter Medical Devices Implanted Type Area Primer Supervisor Device Identifier Shelf Expiration Date Model / Serial / Lot Alloderm 2x4cm [id number] (8 Units) - [id number] - [id number] Implanted:Qty : 8 on 2015 [place] [facility] [place] Human N/A: Esophagus Simplist 10/21/2016 [id number] / [id number] / [id number] Stent Esoph Endomaxx [id number] - [id number] Implanted:Qty : 1 on 07/09/2013 [place] [facility] [place]A: Esophagus [employer] 07/09/2015 KAIDEN-2315 / / [id number] Stent Esoph Endomaxx [id number] - [id number] Implanted:Qty : 1 on 12/08/2013 [place] [facility] [place] [employer] 06/23/2016 KAIDEN-1915 / / [id number] Stent Esoph Endomaxx [id number] - [id number] Implanted:Qty : 1 on 10/19/2014 by David Rosado [place] [facility] [place]/A: Esophagus [employer] 05/23/2017 KAIDEN-2315 / / [id number] Stent Wallflex 27 Mm X 22 Mm [id number] Implanted:Qty : 1 on 2015 by David Rosado [place] [facility] [place]/A: Esophagus [employer] : ENDOSCOPY [id number] / / Stent Eso Gw [id number] - [id number] Implanted:Qty : 1 on 02/16/2015 by David Rosado MD at [facility] N/A: Esophagus ALVEOLUS INC 04/23/2017 [id number] / / [id number] Plate Cslp 487.355 - [id number] Implanted:Qty : 1 on 09/27/2021 by Messi Doll MD [place] [facility] [place]: Spine Cervical SYNTHES 487.355 / / documented as of this encounter Visit Diagnoses Diagnosis Fluttering heart Ventricular flutter Chest pain, unspecified type Heartburn Chronic abdominal pain Abdominal pain, unspecified site Intestinal postoperative nonabsorption Other and unspecified postsurgical nonabsorption Constipation, unspecified constipation type Other chronic pancreatitis (HCC) Recurrent pulmonary emboli (HCC) Other pulmonary embolism and infarction documented in [...] the patient have Health Care Power of Fine Grader? No Full Code 01/12/2015 10:35 PM 01/21/2015 4:44 PM Question Answer Comments Discussion of Advance Directives occurred with: Not Discussed Full Code 12/22/2014 4:26 AM 12/25/2014 5:53 PM This or nu reflects the patients wishes and were consensually agreed upon. Question Answer Comments Discussion of Advance Directives occurred with: Patient Care Teams Medical Support Assistant Relationship Specialty Start Date End Date Jessee Wisdom MD [address], [place] [phone] PCP - General Family Medicine 06/20/17 documented as of this encounter
--- OUTSIDE RECORDS SUMMARY | 2023-09-01 17:20 | External Medical Summary ---
Author Name Unknown Address Unknown Organization K01:[place] [facility] [place] [address] [place] [address] Laboratory Report Ordering Provider Test Date Status SCOTT PARKS 05/13/2023 12:40:29 Final Observation Date Value Abnormality Reference (Units ) Status Lipase 05/13/2023 12:40:29 25 13-60 (U/L ) Final Performing Location LABORATORY [facility] - [address] [place] [address]
--- OUTSIDE RECORDS SUMMARY | 2023-09-01 17:20 | External Medical Summary | Summary of Care ---
Author Name Unknown Organization [facility] Address [address] [place] [address] Phone [phone] Care Team Providers Care Trackless Trolley Driver Name Role Phone Jessee Wisdom MD Primary Care Provider +1- [phone] Reason for Visit * Reason Onset Date Comments Medication Management 05/06/2023 Encounter Details Date Type Department Care Team (Late st Contact Info) Description 05/06/2023 Telephone Neurology, [place] [address] [place] [address] Specified, [place] [facility] [address] [place] [address] Medication Management Allergies Active Allergy Reactions Criticality Noted Date Comments Ciprofloxacin Nausea/vomiting 01/04/2023 Clindamycin Other (Please comment) 09/19/2020 Stomach pain Latex Rash 07/23/2006 Prolonged exposure only Morphine Other (Please comment) High 02/06/2020 Sulfa Antibiotics Hives 05/05/2004 documented as of this encounter (statuses as of 05/08/2023) Medications Medication Sig Dispensed Refills Start Date [...] HCl 50 MG Oral Tablet (Elavil)Indications :Cervicalgia,Depres juaan with anxiety,Degeneratio n of cervical intervertebral disc [...] as of this encounter (statuses as of 05/08/2023) Active Problems Problem Noted Date Diagnosed Date [...] 12/25/2014 Depression with anxiety 12/25/2014 Constipation 12/11/2013 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 1 08/19/2012 Intestinal postoperative nonabsorption 3 Gastric bypass status for obesity 02/19/2013 Dysphagia 10/27/2012 Degeneration of cervical intervertebral disc 03/2011 Insomnia 08/31/2009 Overview: ICD-10 update of inactive term 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 (15 years old or older) No 04/06/20 22 Cognitive Status Response Date of Assessm ent Because of a physical, menta l, or emotional condition, do you have serious difficulty concentrating, remembering, or making decisions? (5 years old or older) Yes 09/27/2021 documented as of this encounter Miscellaneous Notes * Telephone Encounter - Anna Hazel - [...] Description 05/10/2023 7:40 AM EST Office [place] [address] [place] [phone] Shelly Castaneda MD [address] [facility] [phone] 05/21/2023 6:45 PM EST Anticoagulation Pharmacy Call Center WB [address] [facility] [place] [address] [facility] [address] [facility] [place] [address] 07/25/2023 1:20 PM EST [address] [phone] Jessee Wisdom MD [address] [place] [address] 09/30/2023 1:00 PM EDT Nurse Only Ancillary Department, [address] [place] [address] [place], Nurse Annual Wellness [address] [place] [facility] [place] [address] Scheduled Procedures Name Priority Associated Diagnoses Date/Ti me COLONOSCOPY FLEXIBLE PROXIMA L DIAGNOSTIC Recall Family history of colonic polyps Health Maintenance Due Date Last Done Comments Meningitis B Vaccine (Bexsero/Trumemba) (1 of 4 - Increased Risk) 1973 MENINGOCOCCAL (MENACTRA/MENVEO) (2 - Risk 2-dose series) 12/20/2014 10/25/2014, 10/25/2014 Mammogram 03/29/2015 03/29/2014, 10/22, 09/03/2008 COVID-19 Vaccine (3 - 2022- season) 2023 10/13/2020, 09/10/2020 Influenza Vaccine (FLU [...] this encounter Medical Devices Implanted Type Area Catia Designer Device Identifier Shelf Expiration Date Model / Serial / Lot Alloderm 2x4cm [id number] (8 Units) - [id number] - [id number] Implanted:Qty : 8 on 2015 by David Rosado MD at [place] [facility] [place] Tissue - Human N/A: Esophagus [employer] 10/21/2016 [id number] / [id number] / [id number] Stent Esoph Endomaxx [id number] - [id number] Implanted:Qty : 1 on 07/09/2013 at [place] [facility] [place] N/A: Esophagus [employer] 07/09/2015 KAIDEN-2315 / / [id number] Stent Esoph Endomaxx [id number] - [id number] Implanted:Qty : 1 on 12/08/2013 at [place] [facility] [place] [employer] 06/23/2016 KAIDEN-1915 / / [id number] Stent Esoph Endomaxx [id number] - [id number] Implanted:Qty : 1 on 10/19/2014 by David Rosado MD at [place] [facility] [place] N/A: Esophagus [employer] 05/23/2017 KAIDEN-2315 / / [id number] Stent Wallflex 27 Mm X 22 Mm [id number] Implanted:Qty : 1 on 2015 by David Rosado MD at [place] [facility] [place] N/A: Esophagus [employer] : ENDOSCOPY [id number] / / Stent Eso Gw [id number] - [id number] Implanted:Qty : 1 on 02/16/2015 by David Rosado MD at [place] [facility] [place] N/A: Esophagus AL[employer] 04/23/2017 [id number] / / [id number] Plate Cslp 487.355 - [id number] Implanted:Qty : 1 on 09/27/2021 by Messi Doll MD at [place] [facility] [place] Right: Spine Cervical SYNTHES 487.355 / / [...] the patient have Health Care Power of Supervisor? No Full Code 01/12/2015 10:35 PM [...] End Date Jessee Wisdom MD [address] [facility] [place] [address] PCP - General Family Medicine 06/20/17 documented as of this encounter
--- OUTSIDE RECORDS SUMMARY | 2023-09-01 17:20 | External Medical Summary | Summary of Care ---
Author Name Unknown Organization [facility] Address [address] [facility] [address] Phone [phone] Care Team Providers Care It Software Engineer Name Role Phone Stephanie Poole MD Primary Care Provider +1- [phone] Reason for Visit * Reason Onset Date Comments Medication Refill 05/06/2023 Encounter Details Date Type Department Care Team (Late st Contact Info) Description 05/06/2023 Refill Family Medicine [facility] [address] [place] [address] Kash Mauricio, DO [address] [place] [place] [address] Dysfunction of right eustachian tube Allergies Active Allergy Reactions Criticality Noted Date Comments Ciprofloxacin Nausea/vomiting 01/04/2023 Clindamycin Other (Please comment) 09/19/2020 Stomach pain Latex Rash 07/23/2006 Prolonged exposure only Morphine Other (Please comment) High 02/06/2020 Sulfa Antibiotics Hives 05/05/2004 documented as of this encounter (statuses as of 05/06/2023) Medications Medication Sig Dispensed Refills Start Date [...] the morning. 16 g 2 05/06/2023 Active Fluticasone Propionate 50 MCG/ACT Nasal Suspension (Flonase)Indication s:Dysfunction of right eustachian tube Administer into each nostril 2 Sprays in the morning. 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 SHIN RESEARCH OTHER*[id number] 02/03/2006 Anxiety state 08/07/2005 AGORAPHOBIA 08/07/2005 documented as of this encounter (statuses as of 05/06/2023) Resolved Problems Problem Noted Date Diagnosed Date [...] perforation 10/25/2014 11/27/19 15 Intra-abdominal abscess 08/15/2013 060 07/2016 Protein-calorie malnutrition 07/16/2013 11/23/2016 Gastric anastomotic [...] as of this encounter (statuses as of 05/06/2023) Immunizations Name Administration Dates Next Due 08/07/2016, [...] encounter Miscellaneous Notes * Telephone Encounter - Stephanie Poole MD - 05/06/2023 12:40 PM ESTSigned Prescriptions: Disp Refills Fluticasone Propionate 50 MCG/ACT Nasal Cintron*16 g 2 Sig: Administer 2 Sprays into each nostril in the morning.Authorizing Provider: STEPHANIE POOLE * Telephone Encounter - Meaghan Mcwilliams LPN - 05/06/2023 11:43 AM ESTPending Prescriptions: Disp Refills Fluticasone Propionate 50 MCG/ACT Nasal Cintron*16 g 2 Sig: Administer 2 Sprays into each nostril in the morning. * Telephone Encounter - Meaghan Mcwilliams LPN - 05/06/2023 11:42 AM EST Last prescriber left clinic-- deferring to PCP Did you pend patient's preferred pharmacy and medication before forwarding?yes Pharmacy: [facility] Pending Prescriptions: Disp Refills Fluticasone Propionate 50 MCG/ACT Nasal S*16 g 2 Sig: Administer 2 Sprays into each nostril in the morning. Last Visit: 07/22/2021 (in office), Visit date not found (telemedicine) Next Visit: Visit date not found If no future appointments scheduled, and last appointment is greater than a year ago, please schedule patient for a follow-up appointment Last date the medication was ordered: 07/22/2022 Is this request for a controlled substance?No Urine Drug Screen: Results for orders placed or performed in visit on 07/10/22 TOXICOLOGY, URINE SCREEN W/ CONFIRMATION Result Value Amphetamine Negative Benzodiazepines Negative Cannabinoids Negative Cocaine Metabolite Negative Fentanyl Negative Hydrocodone / Hydromorphone Negative Methadone Metabolite Negative Morphine / Codeine Negative Oxycodone / Oxymorphone Negative Narrative Cutoff Concentrations: Drug Level Amphetamines [...] Labs: Lab Results Component Value Date/Time CREAT 1.2 (H) 08/23/2022 04:17 PM CREAT 0.9 07/11/2020 09:40 AM POTASSIUM 5.4 (H) 08/23/2022 04:17 PM POTASSIUM 4.7 07/11/2020 09:40 AM TSH 1.21 07/10/2022 11:30 AM TSH 2.14 03/18/2020 11:11 AM LDLCALC 55 02/23/2020 10:08 AM LDLDIRECT 132 (H) 08/15/2005 03:23 PM ALT 95 (H) 08/23/2022 04:17 PM ALT 76 (H) 07/11/2020 09:40 AM HGBA1C 5.6 07/10/2022 11:30 AM HGBA1C 5.1 10/09/2018 02:39 PM documented in this encounter Plan of Treatment Upcoming Encounters Date Type Department Care Team (Late st Contact Info) Description 05/07/2023 11:20 AM EST Office [facility] [address] [place] [facility] [place] [phone] Ramila Peres MD [address] [place] [address] 05/21/2023 6:45 PM EST Anticoagulation Pharmacy Call Center [address] [place] [address] [facility] [address] [facility] [place] [address] 07/25/2023 1:20 PM EST Office Visit [facility] [address] [place] [phone] Stephanie Poole MD [address] [facility] [place] [phone] 09/30/2023 1:00 PM EDT Nurse Only Ancillary Department, [place] [address] [facility] [place] [phone] [place], Nurse Annual Wellness [address] [place] [facility] [place] [address] Scheduled Procedures Name Priority Associated Diagnoses Date/Ti me COLONOSCOPY FLEXIBLE PROXIMA L DIAGNOSTIC Recall Family history of colonic polyps Health Maintenance Due Date Last Done Comments Meningitis B Vaccine (Bexsero/Trumemba) (1 of 4 - Increased Risk) 1973 MENINGOCOCCAL (MENACTRA/MENVEO) (2 - Risk 2-dose series) 12/20/2014 10/25/2014 Mammogram 03/29/2015 03/29/2014, 10/22, 09/03/2008 COVID-19 [...] this encounter Medical Devices Implanted Type Area Relief Manager Device Identifier Shelf Expiration Date Model / Serial / Lot Alloderm 2x4cm [id number] (8 Units) - [id number] - [id number] Implanted:Qty : 8 on 2015 by [place]ado [place] [facility] [place] - Human N/A: Esophagus EQAL 10/21/2016 [id number] / [id number] / [id number] Stent Esoph Endomaxx [id number] - [id number] Implanted:Qty : 1 on 07/09/2013 [place] [facility] [place]/A: Esophagus [employer] 07/09/2015 KAIDEN-2315 / / [id number] Stent Esoph Endomaxx [id number] - [id number] Implanted:Qty : 1 on 12/08/2013 [place] [facility] [place] [employer] 06/23/2016 KAIDEN-1915 / / [id number] Stent Esoph Endomaxx [id number] - [id number] Implanted:Qty : 1 on 10/19/2014 by David Rosado MD [place] [facility] [place]/A: Esophagus [employer] 05/23/2017 KAIDEN-2315 / / [id number] Stent Wallflex 27 Mm X 22 Mm [id number] Implanted:Qty : 1 on 2015 by David Rosado MD [place] [facility] [place]/A: Esophagus [employer] : ENDOSCOPY [id number] / / Stent Eso Gw [id number] - [id number] Implanted:Qty : 1 on 02/16/2015 by David Rosado MD [place] [facility] [place] N/A: Esophagus ALVEOLUS INC 04/23/2017 [id number] / / [id number] Plate Cslp 487.355 - [id number] Implanted:Qty : 1 on 09/27/2021 by Messi Doll MD [place] [facility] [place] Right: Spine Cervical SYNTHES 487.355 / / documented as of this encounter Visit Diagnoses Diagnosis Dysfunction of right eustachian tube Dysfunction of Eustachian tube documented in this encounter Advance Directives Latest [...] the patient have Health Care Power of Watch Inspector? No Full Code 01/12/2015 10:35 PM 01/21/2015 4:44 PM Question Answer Comments Discussion of Advance Directives occurred with: Not Discussed Full Code 12/22/2014 4:26 AM 12/25/2014 5:53 PM This or nu reflects the patients wishes and were consensually agreed upon. Question Answer Comments Discussion of Advance Directives occurred with: Patient Care Teams It Software Engineer Relationship Specialty Start Date End Date Stephanie Poole MD [address] [facility] [place] [address] PCP - General Family Medicine 06/20/17 documented as of this encounter
--- OUTSIDE RECORDS SUMMARY | 2023-09-01 17:20 | External Medical Summary ---
Author Name Unknown Address Unknown Organization K01:LAB[facility]ATORY [facility] [place] [address] [facility] [address] Laboratory Report Ordering Provider Test Date Status [email or web address] 05/13/2023 12:40:29 Final Observation Date Value Abnormality Reference (Units ) Status TSH 05/13/2023 12:40:29 2.51 0.27-4.20 (uIU/mL) Final Performing Location LAB[facility]ORY [facility] [place] - [address] [facility] [address]
--- OUTSIDE RECORDS SUMMARY | 2023-09-01 17:20 | External Medical Summary ---
Author Name Unknown Address Unknown Organization K01:[facility]AT[facility] [place] [address] [facility] [address] [facility] [address] Laboratory Report Ordering Provider Test Date Status SCOTT PARKS 05/13/2023 12:40:29 Final Observation Date Value Abnormality Reference (Units ) Status Tissue transglutaminase IgA Ab [Presence] in Serum by Immunoassay 05/13/2023 12:40:29 Negative Negative Final Tissue transglutaminase IgA Ab [Units/volume] in Serum by Immunoassay 05/13/2023 12:40:29 0.8 <7 (U/mL) Final Performing Location [facility] [place] [facility] [address] [place] [id number]
--- OUTSIDE RECORDS SUMMARY | 2023-09-01 17:20 | External Medical Summary | Summary of Care ---
Author Name Unknown Organization [facility] Address [address] [place] [address] Phone [phone] Care Team Providers Care Feeder Worker Power Unit Operator Name Role Phone Jessee Wisdom MD Primary Care Provider +1- [phone] Reason for Visit * Reason Onset Date Comments Pre Cert/Prior Auth 05/15/2023 Encounter Details Date Type Department Care Team (Late st Contact Info) Description 05/15/2023 Telephone [facility] [address] [place] [address] Jessee Wisdom MD [address] [place] [address] Pre Cert/Prior Auth (/) Allergies [...] Depression with anxiety 12/25/2014 Constipation 12/11/2013 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 1 08/19/2012 Intestinal postoperative nonabsorption 3 Gastric bypass status for obesity 02/19/2013 Dysphagia 10/27/2012 Degeneration of cervical intervertebral disc 03/2011 Insomnia 08/31/2009 Overview: ICD-10 update of inactive term 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 SHIN RESEARCH OTHER*[id number] 02/03/2006 Anxiety state 08/07/2005 AGORAPHOBIA 08/07/2005 Class [...] encounter Miscellaneous Notes * Telephone Encounter - Anisa Rosas LPN - 05/17/2023 9:20 AM EST Dedra calling from [facility] regarding Pa for: Trulance 3 MG Oral Tablet (Plecanatide) PA Denied Faxing information to the office * Telephone Encounter - Lis Agustin LPN - 05/15/2023 12:34 PM EST Prior auth started for trulance through [facility]# [id number] documented in this encounter Plan of Treatment Upcoming Encounters Date Type Department Care Team (Late st Contact Info) Description 05/17/2023 3:45 PM EST Imaging Radiology [facility], [address] [place] [address] 05/21/2023 6:45 PM EST Anticoagulation Pharmacy Call Center [address] [place] [address] [facility], [facility] [address] [facility] [place] [address] 07/25/2023 1:20 PM EST Office Visit [facility] [address] [facility] [address] [facility] Wisdom [facility] [address] [facility] [address] 09/30/2023 1:00 PM EDT Nurse Only Ancillary Department, [place] [address] [facility] [place] [address] [place], Nurse Annual Wellness [address] [place] [facility] [place] [address] Scheduled Procedures Name Priority Associated Diagnoses Date/Ti [...] this encounter Medical Devices Implanted Type Area Beef Tagger Device Identifier Shelf Expiration Date Model / Serial / Lot Alloderm 2x4cm [id number] (8 Units) - [id number] - [id number] Implanted:Qty : 8 on 2015 by David Rosado MD at OR [facility] Tissue - Human N/A: Esophagus [employer] 10/21/2016 [id number] / [id number] / [id number] Stent Esoph Endomaxx [id number] - [id number] Implanted:Qty : 1 on 07/09/2013 at OR [facility] N/A: Esophagus [employer] 07/09/2015 KAIDEN-2315 / / [id number] Stent Esoph Endomaxx [id number] - [id number] Implanted:Qty : 1 on 12/08/2013 at OR [facility] [employer] 06/23/2016 [id number]-1915 / / [id number] Stent Esoph Endomaxx [id number] - [id number] Implanted:Qty : 1 on 10/19/2014 by David Rosado MD at OR [facility] N/A: Esophagus [employer] 05/23/2017 KAIDEN-2315 / / [id number] Stent Wallflex 27 Mm X 22 Mm [id number] Implanted:Qty : 1 on 2015 by David Rosado MD at OR [facility] N/A: Esophagus [employer] : ENDOSCOPY [id number] / / Stent Eso Gw [id number] - [id number] Implanted:Qty : 1 on 02/16/2015 by David Rosado MD at OR [facility] N/A: Esophagus [employer] 04/23/2017 [id number] / / [id number] Plate Cslp 487.355 - [id number] Implanted:Qty : 1 on 09/27/2021 by Messi [...] the patient have Health Care Power of Waffle Machine Operator? No Full Code 01/12/2015 10:35 PM 01/21/2015 4:44 PM Question Answer Comments Discussion of Advance Directives occurred with: Not Discussed Full Code 12/22/2014 4:26 AM 12/25/2014 5:53 PM This or nu reflects the patients wishes and were consensually agreed upon. Question Answer Comments Discussion of Advance Directives occurred with: Patient Care Teams Feeder Worker Power Unit Operator Relationship Specialty Start Date End Date Jessee Wisdom MD [address] [place] [facility] [place] [address] PCP - General Family Medicine 06/20/17 documented as of this encounter
--- OUTSIDE RECORDS SUMMARY | 2023-09-01 17:21 | External Medical Summary | Summary of Care ---
Author Name Unknown Organization [facility] Address [address] [place] [address] Phone [phone] Care Team Providers Care Dispute Coordinator Name Role Phone Jessee Wisdom MD Primary Care Provider +1- [phone] Reason for Visit * Reason Onset Date Comments Health Maintenance 05/02/2023 Encounter Details Date Type Department Care Team (Late st Contact Info) Description 05/02/2023 Telephone [facility] [address] [place] [address] Jessee Wisdom MD [address] [place] [address] Health Maintenance Allergies Active Allergy Reactions Criticality Noted Date Comments Ciprofloxacin Nausea/vomiting 01/04/2023 Clindamycin Other (Please comment) 09/19/2020 Stomach pain Latex Rash 07/23/2006 Prolonged exposure only Morphine Other (Please comment) High 02/06/2020 Sulfa Antibiotics Hives 05/05/2004 documented as of this encounter (statuses as of 05/02/2023) Medications Medication Sig Dispensed Refills Start Date [...] day. . 2550 g 2 03/14/2021 Active Fluticasone Propionate 50 MCG/ACT Nasal Suspension (Flonase)Indications :Dysfunction of right eustachian tube Administer into each nostril 2 Sprays in the morning. 16 g 2 07/22/2021 Active Calcium Carb-Cholecalciferol 600-400 MG-UNIT Oral Tablet [...] the tablet. 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 (5 years old or older Yes 09/27/2021 documented as of this encounter Miscellaneous Notes * Telephone Encounter - Zara Garcia LPN - 05/02/2023 11:50 AM EST Care Gaps Comprehensive Care Outreach Last Office/Telemedicine Visit: 01/01/2023 (in office), 03/22/2023 (telemedicine) Next Office Visit: Visit date not found Hemoglobin AIC Results: Lab Results Component Value Date/Time HEMOGLOBIN A1C - [facility] 5.6 07/10/2022 11:30 AM HEMOGLOBIN A1C - [facility] 5.7 (H) 09/06/2021 04:32 PM HEMOGLOBIN A1C - [facility] 5.2 03/27/2021 11:19 AM HEMOGLOBIN A1C - [facility] 5.1 10/09/2018 02:39 PM HEMOGLOBIN A1C - [facility] 5.8 07/23/2006 03:29 PM HEMOGLOBIN A1C - [facility] 5.9 10/05/2004 10:09 AM Reviewed Health Maintenance below: Health Maintenance Topic Date Due Meningitis B Vaccine (Bexsero/Trumemba) (1 of 4 - Increased Risk) Never done MENINGOCOCCAL (MENACTRA/MENVEO) (2 - Risk 2-dose series) 12/20/2014 Mammogram 03/29/2015 Influenza Vaccine (FLU shot) (1) 02/22/2023 COVID-19 Vaccine (3 - season) 2023 Ov scheduled Flu scheduled mammogram Care Gap Outreach Action Taken: Spoke to patient documented in this encounter Plan of Treatment Upcoming Encounters Date Type Department Care Team (Late st Contact Info) Description 05/07/2023 10:00 AM EST Immunization Ancillary Department, [place] [address] [facility] [address] [place], Flu Shot Clinic [address] [facility] [place] [id number] 05/21/2023 6:45 PM EST Anticoagulation Pharmacy Call Center [address] [facility] [place] [address] [facility] [address] [facility] [place] [address] 07/25/2023 1:20 PM EST Office Visit Family Practice, [place] [address] [place] [address] Jessee Wisdom MD [address] [place] [address] 09/30/2023 1:00 PM EDT Nurse Only Ancillary Department, [place] [address] [place] [facility] [place] [address] [place], Nurse Annual Wellness [address] [place] [address] Scheduled Procedures Name Priority Associated Diagnoses [...] this encounter Medical Devices Implanted Type Area Yarding Engineer Device Identifier Shelf Expiration Date Model / Serial / Lot Alloderm 2x4cm [id number] (8 Units) - [id number] - [id number] Implanted:Qty : 8 on 2015 by David Rosado MD at [place] [facility] Tissue - Human N/A: Esophagus [employer] 10/21/2016 [id number] / [id number] / [id number] Stent Esoph Endomaxx [id number] - [id number] Implanted:Qty : 1 on 07/09/2013 at [place] [facility] N/A: Esophagus [employer] 07/09/2015 KAIDEN-2315 / / [id number] Stent Esoph Endomaxx [id number] - [id number] Implanted:Qty : 1 on 12/08/2013 at [place] [facility] [employer] 06/23/2016 KAIDEN-1915 / / [id number] Stent Esoph Endomaxx [id number] - [id number] Implanted:Qty : 1 on 10/19/2014 by David Rosado MD at [place] [facility] N/A: Esophagus [employer] 05/23/2017 KAIDEN-2315 / / [id number] Stent Wallflex 27 Mm X 22 Mm [id number] Implanted:Qty : 1 on 2015 by David Rosado MD at [place] [facility] N/A: Esophagus [employer] : ENDOSCOPY [id number] / / Stent Eso Gw [id number] - [id number] Implanted:Qty : 1 on 02/16/2015 by David Rosado MD at [place] [facility] N/A: Esophagus [employer] 04/23/2017 [id number] / / [id number] [facility] 487.355 - [id number] Implanted:Qty : 1 on 09/27/2021 by Messi Doll MD at [place] [facility] Right: Spine Cervical SYNTHES 487.355 / / documented as of this encounter Advance Directives Latest Code Status on File Code Status Date Activated Date Inactivated Comments Full Code 09/27/2021 12:39 PM 09/28/2021 4:31 PM This order reflects the patients wishes [...] the patient have Health Care Power of Transfer Station Attendant? No Full Code 01/12/2015 10:35 PM 01/21/2015 4:44 PM Question Answer Comments Discussion of Advance Directives occurred with: Not Discussed Full Code 12/22/2014 4:26 AM 12/25/2014 5:53 PM This or nu reflects the patients wishes and were consensually agreed upon. Question Answer Comments Discussion of Advance Directives occurred with: Patient Care Teams Dispute Coordinator Relationship Specialty Start Date End Date Jessee Wisdom MD [address] [facility] [place] [address] PCP - General Family Medicine 06/20/17 documented as of this encounter
--- OUTSIDE RECORDS SUMMARY | 2023-09-01 17:21 | External Medical Summary | Summary of Care ---
Author Name Unknown Organization [facility] Address [address] [place] [address] Phone [phone] Care Team Providers Care Command Center Analyst Name Role Phone Jessee Wisdom MD Primary Care Provider [phone] Encounter Details Date Type Department Care Team Description 03/22/2023 Telemedicine [facility] [address] [place] [address] Shelly Castaneda MD [address] [place] [address] Fluttering heart*; Chest pain, unspecified type; Anxiety; Heartburn; Bloating; Constipation, unspecified constipation type; Gastric bypass status for obesity Allergies Active Allergy Reactions Severity Noted Date Comments Ciprofloxacin Nausea/vomiting 01/04/2023 Clindamycin Other (Please comment) 09/19/2020 Stomach pain Latex Rash 07/23/2006 Prolonged exposure only Morphine Other (Please comment) High 02/06/2020 Sulfa Antibiotics Hives 05/05/2004 documented as of this encounter (statuses as of 03/22/2023) Medications Medication Sig Dispensed Refills Start Date [...] as of this encounter (statuses as of 03/22/2023) Active Problems Problem Noted Date Migraine without status migrainosus, not intractable 07/10/2022 Other chronic pancreatitis 07/10/2022 Chronic pain of right ankle 04/27/2022 S/P cervical spinal fusion 04/20/2022 Gastroesophageal reflux disease without esophagitis 08/24/2021 Recurrent major depressive disorder, in partial remission 02/09/2021 Intractable chronic migraine without aur a and without status migrainosus 12/10/2016 Recurrent pulmonary emboli 07/15/2015 Iron deficiency anemia 07/15/2015 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 Selenium deficiency 01/20/2015 Overview: SELENIUM(mcg/L) Zeeshan Dt/Tm Resulted Value Low High Status 01/19/15 6:54A 01/20/15 58* 63 160 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 Chronic abdominal pain 12/25/2014 Depression with anxiety 12/25/2014 Constipation 12/11/2013 halfway current use of anticoagulant t herapy 06/18/2013 Intestinal postoperative nonabsorption 1 08/12/2012 Gastric bypass status for obesity 2012 Dysphagia 10/27/2012 Degeneration of cervical intervertebral disc 04/02/2011 Insomnia 08/31/2009 Overview: ICD-10 update of inactive term 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 SHIN RESEARCH OTHER*[id number] 6 Anxiety state 08/07/2005 AGORAPHOBIA 08/07/2005 documented as of this encounter (statuses as of 03/22/2023) Resolved Problems Problem Noted Date Resolved Date Food insecurity 06/05/2021 08/08/2022 Overview: Per [facility] Protocol Gastric bypass status for obesity 08/18/2015 11/23/2016 UTI (urinary tract infection) 03/10/2015 SIRS (systemic inflammatory response syndrome) 0 03/09/2015 08/24/2021 Nausea and vomiting 02/19/2015 03/09/2015 Pulmonary embolism 02/19/2015 03/09/2015 Severe malnutrition 01/24/2015 11/23/2016 Severe malnutrition 01/24/2015 03/09/2015 Vitamin A deficiency 01/20/2015 05/23/2022 Overview: VITAMIN A(ug/L) Zeeshan Dt/Tm Resulted Value Low High Status 01/19/15 6:54A 01/20/15 112* 300 800 FINAL DUPLICATE Nausea with vomiting 12/25/2014 03/09/2015 Protein-calorie malnutrition, moderate 5 11/23/2016 Pulmonary embolism on right 12/23/201402/22 S/P splenectomy 11/02/2014 11/23/2016 Gastric perforation 10/25/2014 11/26/2014 Intra-abdominal abscess 08/15/2013 11/24/19 17 Protein-calorie malnutrition 07/16/201307/2016 Gastric anastomotic leak 07/13/2013 015 Anticoagulation management encounter 06/18/2013 11/23/2016 Pleural effusion exudative 06/13/201311/26 Hypoxia 06/13/2013 03/09/2015 Electrolyte and fluid disorder 06/12/2013 0 11/26/2014 Malnutrition 06/12/2013 03/09/2015 Pulmonary embolism, bilateral 06/11/2013 Overview: Multiple bilateral segmental Abdominal pain 05/14/2013 03/10/2015 Respiratory failure, acute 05/14/201311/26 Septic shock 05/14/2013 03/09/2015 Overview: ICD-10 update of inactive term Acute abdomen 05/14/2013 11/26/2014 Hypokalemia 05/14/2013 03/09/2015 Lactic acid acidosis 05/14/2013 11/26/2014 Anemia 05/14/2013 04/20/2022 Abscess 05/14/2013 11/23/2016 Overview: Medial and Lateral aamir-splenic fluid collection s/p IR drainage and drain placement 05/18 Anastomotic stricture of gastrojejunostomy 05/1011/26/2014 Intractable chronic migraine without aura 201211/23/2016 Migraine with aura 03/31/2012 11/23/2016 Chronic daily headache 03/31/2012 7 Cervicalgia 11/14/2009 07/10/2022 Obesity, morbid (more than 1 00 lbs over ideal weight or BMI > 40) 09/20/2009 11/26/2014 Overview: Per Obesity Taxonomy ICD-10 update of inactive term Obesity, morbid (more than 1 00 lbs over ideal weight or BMI > 40) 09/20/2009 07/21/2011 Overview: Per Obesity Taxonomy ICD-10 update of inactive term ADVANCE DIRECTIVE INFORMATION 07/18/2008 Overview: No, Advance Directive brochure given to patient at prior appointment. Family history of GI malignancy 05/10/2008 11/23/2016 Morbid obesity, BMI not known 09/11/2005 Overview: Per Obesity Taxonomy Major depressive disorder 11/08/20032014 Overview: ICD-10 update of inactive term Excessive menstruation 11/08/2003 7 Polycystic ovaries 11/08/2003 11/23/2016 Class 2 obesity with body ma ss index (BMI) of 36.0 to 36.9 in adult 04/22/2000 07/10/2022 Overview: Per Obesity Taxonomy documented as of this encounter (statuses as of 03/22/2023) Immunizations Name Administration Dates Next Due 08/07/2016, [...] 0.6 oz pur e alcohol) very rare Food Insecurity Answer Date Recorded Within the past 12 months, y ou worried that your food would run out before you got money to buy more. Never true 07/10/2022 Within the past 12 months, t he food you bought just didn't last and you didn't have money to get more. Never true 07/10/2022 Sex Assigned at Date Recorded Female 02/27/2019 7:11 AM E DT Job Start Date Occupation Industry Not on [...] Progress Notes * Shelly Castaneda MD - 03/22/2023 3:30 PM EDT Subjective Ashley Morales is a 58 year old female. No chief complaint on file. HPI: Patient location: HOME. I was in a hospital or clinic location. After connecting through [employer]ave[employer],patient was verified with two unique identifiers. Patient (or authorized legal customer response representative) was then informed that this was a Telemedicine visit and being conducted confidentially over secure lines. Methods to assure confidentiality were taken. Patient acknowledged consent and understanding of pr ivacy and security of the Telemedicine visit. The patient agreed to participate. Here for discuss about chest pain or fluttering heart, palpitation Sternum night or during the day Usually not exertional but it can come with it too Denies SOB But gets anxiety with above sx Known GERD, taking omeprazole 20 mg daily S/p cholecystectomy, s/p gastric bypass Also is scheduled to see GI Occ constipation, some pressure ? 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 Recurrent pulmonary emboli (HCC) I26.99 Iron deficiency anemia D50.9 Intractable chronic migraine without aura and without status migrainosus G43.719 Recurrent major depressive disorder, in partial remission (HCC) F33.41 Gastroesophageal reflux disease without esophagitis K21.9 S/P cervical spinal fusion Z98.1 Chronic pain of right ankle M25.571, G89.29 Migraine without status migrainosus, not intractable G43.909 Other chronic pancreatitis (HCC) K86.1 Current Outpatient Medications Medication Sig Dispense Refill Pantoprazole Sodium 40 MG Oral Tablet Delayed Release (Protonix) Take 1 Tablet by mouth in the morning. 30 minutes before the first meal of the day. Do not crush, split or chew the tablet. 30 Tablet 5 acetaminophen (TYLENOL) 500 MG Tablet Take 1 Tablet by mouth 2 times a day as needed. Ocuvite Adult Formula Oral Capsule Take by mouth. Polyethylene Glycol 3350 17 GM/SCOOP Oral Powder (MiraLax) Take 17 g by mouth 2 times a day. One cap full in juice, to effect 1 stool per day. . 2550 g 2 Fluticasone Propionate 50 MCG/ACT Nasal Suspension (Flonase) Administer into each nostril 2 Sprays in the morning. 16 g 2 Calcium Carb-Cholecalciferol 600-400 MG-UNIT Oral Tablet (Calcium 600+D) Take by mouth 1 Tablet 2 times a day . 60 Tablet 5 One-A-Day Womens 50+ Oral Tablet Take by mouth daily. Galcanezumab-gnlm 120 MG/ML Subcutaneous Solution Auto-injector (Resonergyality) Inject 240 mg (two 1 mL injections) under the skin as a loading dose the first month 2 mL 0 DULoxetine HCl 30 MG Oral Capsule Delayed Release Particles (Cymbalta) TAKE ONE CAPSULE BY MOUTH INTHE MORNING. DO NOT CUT, CRUSH OR CHEW [...] every night at bedtime 30 Tablet 5 No current facility-administered medications [...] STRUCTURAL performed by Messi Doll MD at [facility] ARTHRODESIS, ANT INTERBODY, BELOW C-2 Right 09/27/2021 ARTHRODESIS, ANT INTERBODY, BELOW C-2 performed by Messi Doll MD at [facility] ARTHRODESIS,ANT INTERBODY,BELOW C-2,EA ADDL Right 09/27/2021 ARTHRODESIS,ANT INTERBODY,BELOW C-2,EA ADDL performed by Messi Doll MD at [facility] COLONOSCOPY 08/02/2008 Repeat 5 yrs COLONOSCOPY, DIAGNOSTIC (RECTUM) 01/24/2016 normal, repeat 5 yrs/[facility] COLONOSCOPY, DIAGNOSTIC (RECTUM) 02/14/2021 poor prep, repeat 1 yr / COLONOSCOPY FLEXIBLE PROXIMAL DIAGNOSTIC performed by Charline Farooq MD at [facility] COLONOSCOPY, DIAGNOSTIC (RECTUM) 05/02/2022 normal, repeat 5 yrs / COLONOSCOPY FLEXIBLE PROXIMAL DIAGNOSTIC performed by Charline Farooq MD at [facility] COLORECTAL CANCER SCREEN; COLON 11/03/1999 Due 2004 EGD, FLEXIBLE, DIAGNOSTIC 09/26/2012 path shows mild inflammation of esophagus consistant with acid reflux negative for Barretts and mild irritation ofstomach negative for H Pylori EGD, FLEXIBLE, DIAGNOSTIC 12/08/2013 ESOPHAGOGASTRODUODENOSCOPY (EGD), FLEXIBLE, TRANSORAL, DIAGNOSTIC performed by Sabina Guillory III, MD at [facility] EGD, FLEXIBLE, DIAGNOSTIC 02/16/2014 ESOPHAGOGASTRODUODENOSCOPY (EGD), FLEXIBLE, TRANSORAL, DIAGNOSTIC performed by Sabina Guillory III, MD at [facility] EGD, FLEXIBLE, DIAGNOSTIC 01/28/2014 Pre-existing esophageal stent- removal unsuccessful/inpt @ [facility] EGD, FLEXIBLE, DIAGNOSTIC N/A 05/19/2014 ESOPHAGOGASTRODUODENOSCOPY (EGD), FLEXIBLE, TRANSORAL, DIAGNOSTIC performed by Sabina Guillory III, MD at [facility] EGD, FLEXIBLE, DIAGNOSTIC N/A 09/08/2014 ESOPHAGOGASTRODUODENOSCOPY (EGD), FLEXIBLE, TRANSORAL, DIAGNOSTIC performed by Sabina Guillory III, MD at [facility] EGD, FLEXIBLE, DIAGNOSTIC N/A 10/16/2014 ESOPHAGOGASTRODUODENOSCOPY (EGD), FLEXIBLE, TRANSORAL, DIAGNOSTIC performed by Sabina Guillory III, MD at [facility] EGD, FLEXIBLE, DIAGNOSTIC 11/23/2014 ESOPHAGOGASTRODUODENOSCOPY (EGD), FLEXIBLE, TRANSORAL, DIAGNOSTIC performed by Sabina Guillory MD at [facility] EGD, FLEXIBLE, DIAGNOSTIC 01/05/2015 ESOPHAGOGASTRODUODENOSCOPY (EGD), FLEXIBLE, TRANSORAL, DIAGNOSTIC performed by Sabina Guillory MD at [facility] EGD, FLEXIBLE, DIAGNOSTIC N/A 2015 ESOPHAGOGASTRODUODENOSCOPY (EGD), FLEXIBLE, TRANSORAL, DIAGNOSTIC performed by Sabina Guillory MD at [facility] EGD, FLEXIBLE, DIAGNOSTIC N/A 02/16/2015 ESOPHAGOGASTRODUODENOSCOPY (EGD), FLEXIBLE, TRANSORAL, DIAGNOSTIC performed by Sabina Guillory MD at [facility] EGD, FLEXIBLE, DIAGNOSTIC N/A 06/15/2015 ESOPHAGOGASTRODUODENOSCOPY (EGD), FLEXIBLE, TRANSORAL, DIAGNOSTIC performed by Sabina Guillory MD at [facility] EGD, FLEXIBLE, DIAGNOSTIC N/A 10/12/2015 ESOPHAGOGASTRODUODENOSCOPY (EGD), FLEXIBLE, TRANSORAL, DIAGNOSTIC performed by Sabina Guillory MD at [facility] EGD, FLEXIBLE, DIAGNOSTIC 12/23/2018 normal/ESOPHAGOGASTRODUODENOSCOPY (EGD), FLEXIBLE, TRANSORAL, DIAGNOSTIC performed by aRdha Montejo DO at [facility] EGD, FLEXIBLE, DIAGNOSTIC 08/12/2020 normal / ESOPHAGOGASTRODUODENOSCOPY (EGD), FLEXIBLE, TRANSORAL, DIAGNOSTIC performed by Clarence Goins MD at [facility] EGD, FLEXIBLE, INSERT WIRE, PASS DILATOR 03/07/2007 UPPER GI ENDOSCOPY WITH GUIDE WIRE DILATION performed by SABINA GUILLORY III at [facility] EGD, FLEXIBLE, REMOVE FOREIGN BODY 11/02/2013 ESOPHAGOGASTRODUODENOSCOPY (EGD), FLEXIBLE, TRANSORAL, WITH REMOVAL FOREIGN BODY performed by Sabina Guillory III, MD at [facility] EGD, FLEXIBLE, REMOVE FOREIGN BODY 02/04/2014 ESOPHAGOGASTRODUODENOSCOPY (EGD), FLEXIBLE, TRANSORAL, WITH REMOVAL FOREIGN BODY performed by Sabina Guillory III, MD at [facility] EGD, FLEXIBLE, REMOVE FOREIGN BODY 02/11/2014 ESOPHAGOGASTRODUODENOSCOPY (EGD), FLEXIBLE, TRANSORAL, WITH REMOVAL FOREIGN BODY performed by Sabina Guillory III, MD at [facility] EGD, FLEXIBLE, REMOVE FOREIGN BODY N/A 06/15/2015 ESOPHAGOGASTRODUODENOSCOPY (EGD), FLEXIBLE, TRANSORAL, WITH REMOVAL FOREIGN BODY performed by Sabina Guillory MD at [facility] EGD, FLEXIBLE, TRANSENDOSCOPIC DILATION <30MM N/A 2015 ESOPHAGOGASTRODUODENOSCOPY (EGD), FLEXIBLE, TRANSORAL, BALLOON DILATION LESS THAN 30MM performed bySabina Guillory MD at [facility] EGD, FLEXIBLE, TRANSENDOSCOPIC DILATION <30MM N/A 02/16/2015 ESOPHAGOGASTRODUODENOSCOPY (EGD), FLEXIBLE, TRANSORAL, BALLOON DILATION LESS THAN 30MM performed bySabina Guillory MD at [facility] EGD, FLEXIBLE, W/DILATE STRICTURES 02/11/2014 ESOPHAGOGASTRODUODENOSCOPY (EGD), FLEXIBLE, TRANSORAL, DILATION GASTRIC OUTLET performed by Yesenia Guillory III, MD at [facility] EGD, FLEXIBLE,ENDO STENT PLACEMENT N/A 10/19/2014 ESOPHAGOGASTRODUODENOSCOPY (EGD), FLEXIBLE, TRANSORAL: STENT PLACEMENT performed by Sabina Guillory III, MD at [facility] EGD, FLEXIBLE,ENDO STENT PLACEMENT N/A 2015 ESOPHAGOGASTRODUODENOSCOPY (EGD), FLEXIBLE, TRANSORAL: STENT PLACEMENT performed by Sabina Guillory MD at [facility] EGD, FLEXIBLE,ENDO STENT PLACEMENT N/A 02/16/2015 ESOPHAGOGASTRODUODENOSCOPY (EGD), FLEXIBLE, TRANSORAL: STENT PLACEMENT performed by Sabina Guillory MD at [facility] EGD, FLEXIBLE,W/ENDOSCOPIC US 02/12/2020 [place] / [facility] ESOPHAGOSCOPY, FLEXIBLE, TRANSENDOSCOPIC DILATION <30MM 07/09/2013 ESOPHAGOSCOPY BALLOON DILATION LESS THAN 30MM performed by Sabina Guillory III, MD at [facility] EXPLORATION OF ABDOMEN 05/14/2013 EXPLORATORY LAPAROTOMY performed by Sabina Guillory III, MD at [facility] EXPLORATION OF ABDOMEN N/A 10/16/2014 EXPLORATORY LAPAROTOMY performed by Sabina Guillory III, MD at [facility] EXPLORATION OF ABDOMEN N/A 10/19/2014 EXPLORATORY LAPAROTOMY performed by Sabina Guillory III, MD at [facility] GASTRIC REVISION FOR OBESITY 08/08/2006 Performed by SABINA GUILLORY III at [facility] Log [id number] INJECT DX/THER SUBSTANCE INTERLAMINAR CERVICAL/THORACIC W IMAGE GUIDE N/A 01/23/2021 INJECTION SPINE LUMBAR CERVICAL OR THORACIC performed by Adolfo Brooks DO at [facility] IOF CT GUIDED NEEDLE BIOPSY 05/18/2013 CT GUIDED NEEDLE ASPIRATION BIOPSY performed by Kenneth Greenwood PA-C at [facility] IR DRAINAGE ABSCESS/SPECIMEN W CATHETER PLACEMENT 07/14/2013 RADIOLOGICAL GUIDANCE FOR ABSCESS DRAINAGE performed by Kenneth Greenwood PA-C at [facility] IR DRAINAGE ABSCESS/SPECIMEN W CATHETER PLACEMENT 08/14/2013 RADIOLOGICAL GUIDANCE FOR ABSCESS DRAINAGE performed by Kenneth Greenwood PA-C at [facility] IR US GUIDED THORACENTESIS 05/20/2013 THORACENTESIS FOR ASPIRATION W/ IMAGING performed by Amy Curry MD at [facility] REMOVAL OF SPLEEN, TOTAL, EN BLOC N/A 10/16/2014 SPLENECTOMY TOTAL WITH OTHER PROCEDURE performed by Sabina Guillory III, MD at [facility] REMOVE GALLBLADDER REMOVE STOMACH, PARTIAL 05/07/2013 GASTRECTOMY PARTIAL WITH GASTROJEJUNOSTOMY performed by Sabina Guillory III, MD at [facility] REVISION OF ANKLE JOINT right SPINE FIX DEV, ANT, 4-7 SEG, INSERT Right 09/27/2021 ANTERIOR INSTRUMENTATION 4 TO 7 VERTEBRAL SEGMENTS performed by Messi Doll MD at [facility] TOTAL ABD HYSTERECTOMY W/WO REMOVAL OF TUBE(S) 10/02/2010 ABISAI/BSO WEDGE BIOPSY OF LIVER 08/08/2006 Performed by SABINA GUILLORY III at [facility] Log [id number] WEDGE BIOPSY OF LIVER 05/07/2013 BIOPSY OF LIVER WEDGE performed by Sabina Guillory III, MD at [facility] Review of patient's allergies indicates: Allergen Reactions [...] Smoking status: Former Packs/day: 0.50 Years: 3.00 Pack years: 1.50 Types: Cigarettes Quit date: 02/13/2020 Years since quittin.1 Smokeless tobacco: Never Vaping Use Vaping Use: [...] on file Food Insecurity: No Food Insecurity Worried About Running Out of Food in [...] diaphoresis, fever and unexpected weight change. Respiratory: Negative for cough, chest tightness, shortness of breath and wheezing. Cardiovascular: Positive for chest pain (center or rt sided ?) and palpitations. Negative for leg swelling. Gastrointestinal: Positive for constipation and diarrhea. Negative for abdominal distention. Abdominal pain: ?some discomfort. Reflux heartburn ? Genitourinary: Negative for dysuria and hematuria. Neurological: Negative for dizziness and light-headedness. Psychiatric/Behavioral: Positive for sleep disturbance. Negative for agitation and behavioral problems. The patient is nervous/anxious. Objective LMP 09/03/2010 Physical Exam Constitutional: General: She is not in acute distress. Appearance: Normal appearance. She is obese. She is not ill-appearing, toxic- appearing or diaphoretic. HENT: Head: Normocephalic and atraumatic. Nose: Nose normal. Eyes: Pupils: Pupils are equal, round, and reactive to light. Neurological: General: No focal deficit present. Mental Status: She is alert and oriented to person, place, and time. Psychiatric: Behavior: Behavior normal. Comments: Mild anixety ASSESSMENT/PLAN: Fluttering heart (Primary) - TROPONIN T, HIGH SENSITIVITY; Future; Expected date: 03/22/2023 - D-DIMER; Future; Expected date: 03/22/2023 - CBC WITH WBC DIFFERENTIAL; Future; Expected date: 03/22/2023 - COMPREHENSIVE METABOLIC PANEL; Future; Expected date: 03/22/2023 Chest pain, unspecified type - TROPONIN T, HIGH SENSITIVITY; Future; Expected date: 03/22/2023 - D-DIMER; Future; Expected date: 03/22/2023 - CBC WITH WBC DIFFERENTIAL; Future; Expected date: 03/22/2023 - COMPREHENSIVE METABOLIC PANEL; Future; Expected date: 03/22/2023 Anxiety Heartburn - TROPONIN T, HIGH SENSITIVITY; Future; Expected date: 03/22/2023 - D-DIMER; Future; Expected date: 03/22/2023 - CBC WITH WBC DIFFERENTIAL; Future; Expected date: 03/22/2023 - COMPREHENSIVE METABOLIC PANEL; Future; Expected date: 03/22/2023 - XR ABDOMEN 1 VIEW Bloating - XR ABDOMEN 1 VIEW Constipation, unspecified constipation type - XR ABDOMEN 1 VIEW Gastric bypass status for obesity Other orders - Pantoprazole Sodium 40 MG Oral Tablet Delayed Release (Protonix); Take 1 Tablet by mouth in the morning. 30 minutes before the first meal of the day. Do not crush, split or chew the tablet. Follow Up: Return in about 4 days (around 03/26/2023) for Clinic Visit. | For: Clinic Visit | Check-out note: Schedule on Sat Protonix instead of omeprazole And take it before dinner F/u blood tests and KUB Shelly Castaneda MD documented in this encounter Plan of Treatment Upcoming Encounters Date Type Specialty Care Team Description 03/25/2023 Office Visit Gastroenterology Alexandrea Crane CRNP [address] [place] [address] 03/28/2023 [facility] [address] [place] [address] 09/30/2023 Nurse Only [facility] Nurse [facility] [address] [place] [address] Scheduled Orders Name Type Priority Associated Diagnoses Orde r Schedule TROPONIN T, HIGH SENSITIVITY Lab Routine Fluttering heart Chest pain, unspecified type Heartburn Expected: 03/22/2023 (Approximate), Expires: 03/21/2024 D-DIMER Lab Routine Fluttering heart Chest pain, unspecified type Heartburn Expected: 03/22/2023 (Approximate), Expires: 03/21/2024 CBC WITH WBC DIFFERENTIAL Lab Routine Fluttering heart Chest pain, unspecified type Heartburn Expected: 03/22/2023 (Approximate), Expires: 03/22/2024 COMPREHENSIVE METABOLIC PANEL Lab Routine Fluttering heart Chest pain, unspecified type Heartburn Expected: 03/22/2023 (Approximate), Expires: 03/21/2024 XR ABDOMEN 1 VIEW Medical Imaging Routine Heartburn Bloating Constipation, unspecified constipation type Ordered: 03/22/2023 Scheduled Procedures Name Priority Associated Diagnoses Date/Ti me COLONOSCOPY FLEXIBLE PROXIMA L DIAGNOSTIC Recall Family history of colonic polyps Health Maintenance Due Date Last Done Comments Meningitis B Vaccine (Bexsero/Trumemba) (1 of 4 - Increased Risk Bexsero 2-dose series) 1973 MENINGOCOCCAL (MENACTRA/MENVEO) (2 - Risk 2-dose series) 12/20/2014 10/25/2014 Mammogram 03/29/2015 03/29/2014, 10/22, 09/03/2008 COVID-19 Vaccine (3 - Moderna series) 12/08/2020 10/13/2020, 09/10/2020 Influenza Vaccine (FLU shot) (#1) [...] this encounter Medical Devices Implanted Type Area Gameroom Technician Device Identifier Shelf Expiration Date Model / Serial / Lot Alloderaugustina [id number] [id number] (8 Units) - [id number] - [id number] Implanted:Qty : 8 on 2015 by Sabina Guillory MD at [facility] Tissue - Human N/A: Esophagus [address] 10/21/2016 [id number] / [id number] / [id number] Stent Esoph Endomaxx [id number] - [id number] Implanted:Qty : 1 on 07/09/2013 at [facility] N/A: Esophagus [employer] 07/09/2015 [id number] / / [id number] Stent Esoph Endomaxx [id number] - [id number] Implanted:Qty : 1 on 12/08/2013 at [facility] [employer] 06/23/2016 [id number] / / [id number] Stent Esoph Endomaxx [id number] - [id number] Implanted:Qty : 1 on 10/19/2014 by Sabina Guillory MD at [facility] N/A: Esophagus [employer] 05/23/2017 [id number] / / [id number] Stent Wallflex 27 Mm X 22 Mm [id number] Implanted:Qty : 1 on 2015 by Saibna Guillory MD at [facility] N/A: Esophagus [employer] : ENDOSCOPY [id number] / / Stent Eso Gw [id number] - [id number] Implanted:Qty : 1 on 02/16/2015 by Sabina Guillory MD at [facility] N/A: Esophagus [employer] 04/23/2017 [id number] / / [id number] Plate Cslp [id number] - [id number] Implanted:Qty : 1 on 09/27/2021 by Messi Doll MD at [facility] Right: Spine Cervical SYNTHES 487.355 / / documented as of this encounter Visit Diagnoses Diagnosis Fluttering heart- Primary Ventricular flutter Chest pain, unspecified type Anxiety Anxiety state, unspecified Heartburn Bloating Flatulence, eructation, and gas pain Constipation, unspecified constipation type Gastric bypass status for obesity Bariatric surgery status documented in this encounter Advance Directives Latest [...] the patient have Health Care Power of Foot Piece Assembler? No Full Code 01/12/2015 10:35 PM 01/21/2015 4:44 PM Question Answer Comments Discussion of Advance Directives occurred with: Not Discussed Full Code 12/22/2014 4:26 AM 12/25/2014 5:53 PM This or nu reflects the patients wishes and were consensually agreed upon. Question Answer Comments Discussion of Advance Directives occurred with: Patient Care Teams Command Center Analyst Relationship Specialty Start Date End Date Jessee Wisdom MD [address] [place] [address], [place] [id number] PCP - General Family Medicine 06/20/17 documented as of this encounter"
--- OUTSIDE RECORDS SUMMARY | 2023-09-01 17:21 | External Medical Summary | Summary of Care ---
Author Name Unknown Organization [facility] Address [address] [place] [address] Phone [phone] Care Team Providers Care Sap Portal Developer Name Role Phone Jessee Wisdom MD Primary Care Provider +1- [phone] Reason for Visit * Reason Comments Dosage Adjustment Via Phone (anticoag Cl inic) Encounter Details Date Type Department Care Team Description 03/06/2023 Anticoagulation Pharmacy Call Center [address] [place] [address] [facility] [address] [facility] [place] [address] Recurrent pulmonary emboli (HCC)* Allergies Active Allergy Reactions Severity Noted Date Comments Ciprofloxacin Nausea/vomiting 01/04/2023 Clindamycin Other (Please comment) 09/19/2020 Stomach pain Latex Rash 07/23/2006 Prolonged exposure only Morphine Other (Please comment) High 02/06/2020 Sulfa Antibiotics Hives 05/05/2004 documented as of this encounter (statuses as of 03/06/2023) Medications Medication Sig Dispensed Refills Start Date [...] Tablet Take by mouth daily. 0 Active Zolpidem Tartrate ER 12.5 MG Oral Tablet Extended ReleaseIndications:P rimary insomnia Take one tablet by mouth every night at bedtime 30 Tablet 5 09/04/2022 Active Galcanezumab-gnlm 120 MG/ML Subcutaneous Solution Auto-injector [...] a week. 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 SHIN RESEARCH OTHER*[id number] 6 Anxiety state 08/07/2005 AGORAPHOBIA 08/07/2005 documented as of this encounter (statuses as of 03/06/2023) Resolved Problems Problem Noted Date Resolved Date [...] as of this encounter (statuses as of 03/06/2023) Immunizations Name Administration Dates Next Due 08/07/2016,,11/29/2015,12/201411/05/2016 COVID-19 mRNA, LNP-s, No Pre serve, 2-Dose Series (Moderna) 10/13/2020,09/10/2020 H1N1 2009 Influenza, IM 07/29/2009 HIB PRP-T, 4 dose (ActHib) 10/25/2014 Meningococcal Conjugate Vacc ine (Menactra/Menveo) 10/25/2014 Pneumococcal Conjugate Vacc, 13 Valent (Prevnar) 10/25/2014 Pneumococcal Polysaccharide PPV23 (Pneumovax) 04/01/2020,02/21/2010 Seasonal Influenza Virus Vac cine, Unspecified Formulation 05/16/2018 Seasonal Influenza, PF, 6 mo ns & Above, IM , (Flulaval) 04/20/2022,03/10/2021,03/18/2020,11/2018 Seasonal Influenza, Quadriva lent, No Preserve, IM [...] as of this encounter Progress Notes * Geovanna Mckeon, cnc machinist 2nd shift - 03/06/2023 2:46 PM EDT Contacts Type Contact Phone/Fax 03/06/2023 02:44 PM EDT Phone (Outgoing) Ashley Morales (Self) [phone] (M) Left Message Subjective Advised patient to contact Anticoagulation Clinic if any unusual bruising or bleeding, recent illness, changes in medication, or questions/concerns. PT/INR results, Coumadin dose instructions, and next PT/INR date communicated as noted by Pharmacist: Yes KELLY JONES 03/06/2023, 2:46 PM * China Lipscomb [facility] - 03/06/2023 1:52 PM EDT Coumadin Clinic (region specific) Objective Current Warfarin Dose As of 03/06/2023 Warfarin maintenance plan: 5 mg (5 mg x 1) every Tue, [place]; 2.5 mg (5 mg x 0.5) all other days INR Result As of 03/06/2023 INR goal: 2.0-3.0 INR used for dosin.5 (03/06/2023) Assessment & Plan Warfarin Plan As of 03/06/2023 Full warfarin instructions: 03/06: 5 mg; Otherwise 5 mg every Tue, [place]; 2.5 mg all other days Next INR check: 03/20/2023 Repeat PT/INR in 2 week(s) Weekly dose: not changed Additional Dosing Information: Description Home machine every 2 weeks Ensure daily Tech to contact patient with dose instructions as noted. China Lipscomb [facility] 03/06/2023, 1:55 PM documented in this encounter Plan of Treatment Upcoming Encounters Date Type Specialty Care Team Description 09/30/2023 Nurse Only Nurse Monika [facility] [address] [place] [address] Scheduled Procedures Name Priority Associated Diagnoses Date/Ti [...] this encounter Medical Devices Implanted Type Area Pneumatic Tester Mechanic Device Identifier Shelf Expiration Date Model / Serial / Lot Alloderm 2x4cm [id number] (8 Units) - [id number] - [id number] Implanted:Qty : 8 on 2015 by David Rosado MD at OR [facility] [place] Tissue - Human N/A: Esophagus [employer] 10/21/2016 [id number] / [id number] / [id number] Stent Esoph Endomaxx [id number] - [id number] Implanted:Qty : 1 on 07/09/2013 at OR [facility] [place] N/A: Esophagus [employer] 07/09/2015 KAIDEN-2315 / / [id number] Stent Esoph Endomaxx [id number] - [id number] Implanted:Qty : 1 on 12/08/2013 at OR [facility] [place] [employer] 06/23/2016 KAIDEN-1915 / / [id number] Stent Esoph Endomaxx [id number] - [id number] Implanted:Qty : 1 on 10/19/2014 by David Rosado MD at OR [facility] [place] N/A: Esophagus [employer] 05/23/2017 KAIDEN-2315 / / [id number] Stent Wallflex 27 Mm X 22 Mm [id number] Implanted:Qty : 1 on 2015 by David Rosado MD at OR [facility] [place] N/A: Esophagus [employer] : ENDOSCOPY [id number] / / Stent Eso Gw [id number] - [id number] Implanted:Qty : 1 on 02/16/2015 by David Rosado MD at OR [facility] [place] N/A: Esophagus [employer] 04/23/2017 [id number] / / [id number] Plate Cslp 487.355 - [id number] Implanted:Qty : 1 on 09/27/2021 by Messi Doll MD at OR [facility] [place] Right: Spine Cervical SYNTHES 487.355 / / documented as of this encounter Procedures Procedure Name Priority Date/Time Associated Diagnosis Comments OUTSIDE LAB-PT/INR Routine 03/06/2023 documented in this encounter Results * OUTSIDE LAB-PT/INR (03/06/2023) INR-OUTSIDE LAB 1.5 HOME FINGERSTIC K DEVICE History Per Patient LABORATORY HOME FINGERSTICK DEVICE documented in this encounter Visit Diagnoses Diagnosis Recurrent pulmonary [...] the patient have Health Care Power of Laborer Petroleum Refinery? No Full Code 01/12/2015 10:35 PM 01/21/2015 4:44 PM Question Answer Comments Discussion of Advance Directives occurred with: Not Discussed Full Code 12/22/2014 4:26 AM 12/25/2014 5:53 PM This or nu reflects the patients wishes and were consensually agreed upon. Question Answer Comments Discussion of Advance Directives occurred with: Patient Care Teams Sap Portal Developer Relationship Specialty Start Date End Date Jessee Wisdom MD [address] [place] [address] PCP - General Family Medicine 06/20/17 documented as of this encounter
--- OUTSIDE RECORDS SUMMARY | 2023-09-01 17:21 | External Medical Summary | Summary of Care ---
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 Gastric bypass status for obesity 2012 Dysphagia 10/27/2012 Degeneration of cervical intervertebral disc 04/02/2011 Insomnia 08/31/2009 Overview: ICD-10 update of inactive term 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 SHIN RESEARCH OTHER*[id number] 6 Anxiety state 08/07/2005 AGORAPHOBIA 08/07/2005 documented [...] 03/06/2023) Immunizations Name Administration Dates Next Due 08/07/2016, [...] Encounters Date Type Specialty Care Team Description 03/06/2023 Anticoagulation Pharmacy Telepharmacy, [facility] [address] [facility] [place] [address] Recurrent pulmonary emboli (HCC)* 09/30/2023 Nurse Only Nurse Monika [facility] [address] [facility] [place] [address] Scheduled Procedures Name Priority Associated Diagnoses Date/Ti [...] this encounter Medical Devices Implanted Type Area Law Enforcement Director Device Identifier Shelf Expiration Date Model / Serial / Lot Alloderm 2x4cm [id number] (8 Units) - [id number] - [id number] Implanted:Qty : 8 on 2015 [place] [facility] [place] - Human N/A: Esophagus globa.ly FANTASMA 10/21/2016 [id number] / [id number] / [id number] Stent Esoph Endomaxx [id number] - [id number] Implanted:Qty : 1 on 07/09/2013 [place] [facility] [place] N/A: Esophagus [employer] 07/09/2015 KAIDEN-2315 / / [id number] Stent Esoph Endomaxx [id number] - [id number] Implanted:Qty : 1 on 12/08/2013 [place] [facility] [place] [employer] 06/23/2016 KAIDEN-1915 / / [id number] Stent Esoph Endomaxx [id number] - [id number] Implanted:Qty : 1 on 10/19/2014 by David Rosado MD [place] [facility] [place] N/A: Esophagus [employer] 05/23/2017 KAIDEN-2315 / / [id number] Stent Wallflex 27 Mm X 22 Mm [id number] Implanted:Qty : 1 on 2015 by David Rosado MD [place] [facility] [place] N/A: Esophagus [employer] : ENDOSCOPY [id number] / / Stent Eso Gw [id number] - [id number] Implanted:Qty : 1 on 02/16/2015 by David Rosado MD [place] [facility] [place] N/A: Esophagus [employer] 04/23/2017 [id number] / / [id number] Plate Cslp 487.355 - [id number] Implanted:Qty : 1 on 09/27/2021 by Messi Doll MD [place] [facility] [place] Right: Spine Cervical SYNTHES 487.355 / / documented as of this encounter Procedures Procedure Name Priority Date/Time Associated Diagnosis Comments OUTSIDE LAB RESULTS 03/06/2023 documented in this encounter Results * OUTSIDE LAB RESULTS (03/06/2023) 03/06/2023 China Lipscomb [facility] LABORATORY documented in this encounter Advance Directives Latest [...] the patient have Health Care Power of Soapstoner? No Full Code 01/12/2015 10:35 PM 01/21/2015 4:44 PM Question Answer Comments Discussion of Advance Directives occurred with: Not Discussed Full Code 12/22/2014 4:26 AM 12/25/2014 5:53 PM This or nu reflects the patients wishes and were consensually agreed upon. Question Answer Comments Discussion of Advance Directives occurred with: Patient Care Teams Collet Maker Relationship Specialty Start Date End Date Jessee Wisdom MD [address] [place], [place] [phone] PCP - General Family Medicine 06/20/17 documented as of this encounter
--- OUTSIDE RECORDS SUMMARY | 2023-09-01 17:21 | External Medical Summary | Summary of Care ---
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 SHIN RESEARCH OTHER*[id number] 02/03/2006 Anxiety state 08/07/2005 AGORAPHOBIA 08/07/2005 documented [...] Description 05/07/2023 11:20 AM EST Office Visit [place] [address] [facility] [place] [phone] Ramila Peres MD [address] [place] [facility] [place] [address] 05/21/2023 6:45 PM EST Anticoagulation Pharmacy Call Center [address] [place] [address] [facility] [address] [facility] [address] 07/25/2023 1:20 PM EST [facility] [place] [address] [facility] [phone] Jessee Wisdom MD [address] [facility] [address] 09/30/2023 1:00 PM EDT Nurse Only Ancillary Department, [address] [address] Laura Nurse [facility] [address] [place] [phone] Scheduled Procedures Name Priority Associated Diagnoses Date/Ti me COLONOSCOPY FLEXIBLE PROXIMA L DIAGNOSTIC Recall Family history of colonic polyps Health Maintenance Due Date Last Done Comments Meningitis B Vaccine (Bexsero/Trumemba) (1 of 4 - Increased Risk) 1973 MENINGOCOCCAL (MENACTRA/MENVEO) (2 - Risk 2-dose series) 12/20/2014 10/25/2014 Mammogram 03/29/2015 03/29/2014, 10/22, 09/03/2008 COVID-19 Vaccine ( - 2022- season) 2023 10/13/2020, 09/10/2020 Influenza Vaccine (FLU shot) (#1) 2023 04/20/2022, 03/10/2021, 03/10/2021, Additional history exists Depression Screening 09/22/2023 09/21/2022 Lipid Panel 02/22/2025 02/23/2020, 03, 05/10/2008, Additional history exists Diabetes Screening 08/23/2025 [...] this encounter Medical Devices Implanted Type Area Machine Operator Assistant Device Identifier Shelf Expiration Date Model / Serial / Lot Alloderm 2x4cm [id number] (8 Units) - [id number] - [id number] Implanted:Qty : 8 on 2015 by David Rosado MD [place] [facility] [place] Tissue - Human N/A: Esophagus [employer] 10/21/2016 [id number] / [id number] / [id number] Stent Esoph Endomaxx [id number] - [id number] Implanted:Qty : 1 on 07/09/2013 at [place] [facility] [place] N/A: Esophagus [employer] 07/09/2015 KAIDEN-2315 / / [id number] Stent Esoph Endomaxx [id number] - [id number] Implanted:Qty : 1 on 12/08/2013 at [place] [facility] [place] [employer]enia 06/23/2016 KAIDEN-1915 / / [id number] Stent Esoph Endomaxx [id number] - [id number] Implanted:Qty : 1 on 10/19/2014 by David Rosado MD at [place] [facility] [place] N/A: Esophagus [employer] 05/23/2017 KAIDEN-2315 / / [id number] Stent Wallflex 27 Mm X 22 Mm [id number] Implanted:Qty : 1 on 2015 by David Rosado MD at [place] [facility] [place] N/A: Esophagus [employer] : ENDOSCOPY [id number] / / Stent Eso Gw [id number] - [id number] Implanted:Qty : 1 on 02/16/2015 by David Rosado MD at [place] [facility] [place] N/A: Esophagus [employer] INC 04/23/2017 [id number] / / [id number] Plate [facility] 487.355 - [id number] Implanted:Qty : 1 on 09/27/2021 by Messi Doll MD at [place] [facility] [place] Right: Spine Cervical SYNTHES 487.355 / / [...] the patient have Health Care Power of Print Shop Assistant? No Full Code 01/12/2015 10:35 PM 01/21/2015 4:44 PM Question Answer Comments Discussion of Advance Directives occurred with: Not Discussed Full Code 12/22/2014 4:26 AM 12/25/2014 5:53 PM This or nu reflects the patients wishes and were consensually agreed upon. Question Answer Comments Discussion of Advance Directives occurred with: Patient Care Teams Medical Cost Consultant Relationship Specialty Start Date End Date Jessee Wisdom MD [address] [facility] [place] [address] PCP - General Family Medicine 06/20/17 documented as of this encounter
--- OUTSIDE RECORDS SUMMARY | 2023-09-01 17:21 | External Medical Summary | Summary of Care ---
Author Name Unknown Organization [facility] Address [address] [place] [address] Phone [phone] Care Team Providers Care Equipment Installer Name Role Phone Jessee Wisdom MD Primary Care Provider +1- [phone] Reason for Visit * Reason Onset Date Comments Medication Refill 03/18/2023 Encounter Details Date Type Department Care Team Description [facility] [address] [place] [address] Michelle White MD [address], [place] [phone] Primary insomnia Allergies Active Allergy Reactions Severity Noted Date Comments Ciprofloxacin Nausea/vomiting 01/04/2023 Clindamycin Other (Please comment) 09/19/2020 Stomach pain Latex Rash 07/23/2006 Prolonged exposure only Morphine Other (Please comment) High 02/06/2020 Sulfa Antibiotics Hives 05/05/2004 documented as of this encounter (statuses as of 03/19/2023) Medications Medication Sig Dispensed Refills Start Date [...] morning. 16 g 2 07/22/2021 Active Calcium Carb-Cholecalcifero l 600-400 MG-UNIT Oral Tablet (Calcium 600+D) Take by mouth 1 Tablet 2 times a day . 60 Tablet 5 09/28/2021 Active One-A-Day Womens 50+ Oral Tablet Take by mouth daily. 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 Gastric bypass status for obesity 2012 Dysphagia 10/27/2012 Degeneration of cervical intervertebral disc 04/02/2011 Insomnia 08/31/2009 Overview: ICD-10 update of inactive term 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 SHIN RESEARCH OTHER*[id number] 6 Anxiety state 08/07/2005 AGORAPHOBIA 08/07/2005 documented as of this encounter (statuses as of 03/19/2023) Resolved Problems Problem Noted Date Resolved Date [...] as of this encounter (statuses as of 03/19/2023) Immunizations Name Administration Dates Next Due 08/07/2016,,11/29/2015,12/201411/05/2016 [...] Miscellaneous Notes * Telephone Encounter - Michelle White MD - 03/19/2023 8:38 AM EDTSigned Prescriptions: Disp Refills Zolpidem Tartrate ER 12.5 MG Oral Tablet E*30 Tab*5 Sig: Take one tablet by mouth every night at bedtime Authorizing Provider: MICHELLE WHITE * Telephone Encounter - Marivel Dixon RN - 03/19/2023 8:05 AM EDTPending Prescriptions: Disp Refills Zolpidem Tartrate ER 12.5 MG Oral Tablet E*30 Tab*5 Sig: Take one tablet by mouth every night at bedtime * [facility] - 03/19/2023 7:29 AM EDTPending Prescriptions: Disp Refills Zolpidem Tartrate ER 12.5 MG Oral Tablet E*30 Tab*5 Sig: Take one tablet by mouth every night at bedtime * Telephone Encounter - [facility] - 03/19/2023 7:27 AM EDT Did you pend patient's preferred pharmacy and medication before forwarding?yes Pharmacy: [id number] [address] Pending Prescriptions: Disp Refills Zolpidem Tartrate ER 12.5 MG Oral Tablet *30 Tab*5 Sig: Take one tablet by mouth every night at bedtime Last Visit: 04/24/2019 (in office), 12/17/2022 (telemedicine) Next Visit: Visit date not found If no future appointments scheduled, and last appointment is greater than a year ago, please schedule patient for a follow-up appointment Last date the medication was ordered: 01/04/2023 Is this request for a controlled substance?Yes and urine drug screen was completed Urine Drug Screen: Results for orders placed [...] Encounters Date Type Specialty Care Team Description 03/19/2023 Telemedicine Family Medicine Shelly Castaneda MD [address] [place] [address] 03/21/2023 [facility] [address] [facility] [place] [address] 03/25/2023 Office Visit Gastroenterology Alexandrea Crane CRNP [address] [place] [address] 09/30/2023 [facility] [address] [place] [address] Scheduled Procedures Name Priority Associated Diagnoses Date/Ti [...] this encounter Medical Devices Implanted Type Area Store Promoter Device Identifier Shelf Expiration Date Model / Serial / Lot Alloderm 2x4cm [id number] (8 Units) - [id number] - [id number] Implanted:Qty : 8 on 2015 by David Rosado MD at [place] [facility] [place] Tissue - Human N/A: Esophagus [employer] 10/21/2016 [id number] / [id number] / [id number] Stent Esoph Endomaxx [id number] - [id number] Implanted:Qty : 1 on 07/09/2013 at [place] [facility] [place] N/A: Esophagus [employer] 07/09/2015 KAIDEN-2315 / / [id number] Stent Esoph Endomaxx [id number] - [id number] Implanted:Qty : 1 on 12/08/2013 at [place] [facility] [place] [employer] 06/23/2016 KAIDEN-1915 / / [id number] Stent Esoph Endomaxx [id number] - [id number] Implanted:Qty : 1 on 10/19/2014 by David Rosado MD at [place] [facility] [place] N/A: Esophagus [employer] 05/23/2017 KAIDEN-2315 / / [id number] Stent Wallflex 27 Mm X 22 Mm [id number] Implanted:Qty : 1 on 2015 by David Rosado MD at OR [facility] [place] N/A: Esophagus [employer] : ENDOSCOPY [id number] / / Stent Eso Gw [id number] - [id number] Implanted:Qty : 1 on 02/16/2015 by David Rosado MD at OR [facility] [place] N/A: Esophagus [employer] 04/23/2017 [id number] / / [id number] Plate Cslp 487.355 - [id number] Implanted:Qty : 1 on 09/27/2021 by Messi Doll MD at [place] [facility] [place] Right: Spine Cervical SYNTHES 487.355 / / documented as of this encounter Visit Diagnoses Diagnosis Primary insomnia Persistent disorder of initiating or maintaining sleep documented in this encounter Advance Directives Latest [...] the patient have Health Care Power of Forming Machine Upkeep Mechanic Helper? No Full Code 01/12/2015 10:35 PM 01/21/2015 4:44 PM Question Answer Comments Discussion of Advance Directives occurred with: Not Discussed Full Code 12/22/2014 4:26 AM 12/25/2014 5:53 PM This or nu reflects the patients wishes and were consensually agreed upon. Question Answer Comments Discussion of Advance Directives occurred with: Patient Care Teams Equipment Installer Relationship Specialty Start Date End Date Jessee Wisdom MD [address] [place] [address] PCP - General Family Medicine 06/20/17 documented as of this encounter
--- OUTSIDE RECORDS SUMMARY | 2023-09-01 17:21 | External Medical Summary | Summary of Care ---
Author Name Unknown Organization [facility] Address [address] [place] [address] Phone [phone] Care Team Providers Care Conditioning Coach Name Role Phone Jessee Wisdom MD Primary Care Provider +1- [phone] Reason for Visit * Reason Comments Dosage Adjustment Via Phone (anticoag Cl inic) No Show Encounter Details Date Type Department Care Team (Latest Contact Info) Description 05/01/2023 6:45 PM EST Anticoagulation Pharmacy Call Center [address] [place] [address] [facility] [address] [facility] [place] [address] Anticoagulation management encounter* Allergies Active Allergy Reactions Criticality Noted Date Comments Ciprofloxacin Nausea/vomiting 01/04/2023 Clindamycin Other (Please comment) 09/19/2020 Stomach pain Latex Rash 07/23/2006 Prolonged exposure only Morphine Other (Please comment) High 02/06/2020 Sulfa Antibiotics Hives 05/05/2004 documented as of this encounter (statuses as of 05/01/2023) Medications Medication Sig Dispensed Refills Start Date [...] as of this encounter (statuses as of 05/01/2023) Active Problems Problem Noted Date Diagnosed Date [...] 12/25/2014 Depression with anxiety 12/25/2014 Constipation 12/11/2013 detention current use of 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 1 08/19/2012 Intestinal postoperative nonabsorption 3 Gastric bypass status for obesity 02/19/2013 Dysphagia 10/27/2012 Degeneration of cervical intervertebral disc 03/2011 Insomnia 08/31/2009 Overview: ICD-10 update of inactive term 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 Will follow up in 2-3 weeks if patient does notcall result in sooner. Thank you, Radha Espino Sheet Heater Helper [facility] 05/01/2023,8:04 AM documented in this encounter Plan of Treatment Upcoming Encounters Date Type Department Care Team (Late st Contact Info) Description 05/21/2023 6:45 PM EST Anticoagulation Pharmacy Call Center [address] [place] [address] [facility] [address] [place] [address] 09/30/2023 1:00 PM EDT Nurse Only Ancillary Department, [address] [address] [place], Nurse Annual [facility]ness [address] [place] [address] Scheduled Procedures Name Priority Associated Diagnoses Date/Ti [...] this encounter Medical Devices Implanted Type Area Router Tender Device Identifier Shelf Expiration Date Model / Serial / Lot Alloderm 2x4cm [id number] (8 Units) - [id number] - [id number] Implanted:Qty : 8 on 2015 by David Rosado MD at OR [facility] [place] Tissue - Human N/A: Esophagus [employer] M[employer] C 10/21/2016 [id number] / [id number] / [id number] Stent Esoph Endomaxx [id number] - [id number] Implanted:Qty : 1 on 07/09/2013 at OR [facility] N/A: Esophagus [employer] 07/09/2015 KAIDEN-2315 / / [id number] Stent Esoph Endomaxx [id number] - [id number] Implanted:Qty : 1 on 12/08/2013 at OR [facility] [employer] 06/23/2016 KAIDEN-1915 / / [id number] Stent Esoph Endomaxx [id number] - [id number] Implanted:Qty : 1 on 10/19/2014 by David Rosado MD at OR [facility] N/A: Esophagus [employer] 05/23/2017 KAIDEN-2315 / / [id number] Stent Wallflex 27 Mm X 22 Mm [id number] Implanted:Qty : 1 on 2015 by David Rosado MD at OR [facility] N/A: Esophagus [employer] : ENDOSCOPY [id number] / / Stent Eso Gw [id number] - [id number] Implanted:Qty : 1 on 02/16/2015 by David Rosado MD at OR [facility] N/A: Esophagus [employer] 04/23/2017 [id number] / / [id number] Plate Cslp 487.355 - [id number] Implanted:Qty : 1 on 09/27/2021 by Messi [...] the patient have Health Care Power of Automobile Seat Cover Installer? No Full Code 01/12/2015 10:35 PM 01/21/2015 4:44 PM Question Answer Comments Discussion of Advance Directives occurred with: Not Discussed Full Code 12/22/2014 4:26 AM 12/25/2014 5:53 PM This or nu reflects the patients wishes and were consensually agreed upon. Question Answer Comments Discussion of Advance Directives occurred with: Patient Care Teams Conditioning Coach Relationship Specialty Start Date End Date Jessee Wisdom MD [address] [place] [address] PCP - General Family Medicine 06/20/17 documented as of this encounter
--- OUTSIDE RECORDS SUMMARY | 2023-09-01 17:21 | External Medical Summary | Summary of Care ---
Author Name Unknown Organization [facility] Address [address] [place] [address] Phone [phone] Care Team Providers Care Patent Litigation Associate Name Role Phone Jessee Wisdom MD Primary Care Provider +1- [phone] Reason for Visit * Reason Comments eRx-Medication Refill Encounter Details Date Type Department Care Team Description 03/15/2023 Refill Neurology, [facility] [address] [place], [place] [phone] Michelle Roth MD [address] [place], [place] [phone] Primary insomnia Allergies Active Allergy Reactions Severity Noted Date Comments Ciprofloxacin Nausea/vomiting 01/04/2023 Clindamycin Other (Please comment) 09/19/2020 Stomach pain Latex Rash 07/23/2006 Prolonged exposure only Morphine Other (Please comment) High 02/06/2020 Sulfa Antibiotics Hives 05/05/2004 documented as of this encounter (statuses as of 03/18/2023) Medications Medication Sig Dispensed Refills Start Date [...] as of this encounter (statuses as of 03/18/2023) Active Problems Problem Noted Date Migraine without [...] Constipation 12/11/2013 [facility] current use of anticoagulant t herapy 06/18/2013 Intestinal postoperative nonabsorption 1 08/12/2012 Gastric bypass status for obesity 2012 Dysphagia 10/27/2012 Degeneration of cervical intervertebral disc 04/02/2011 Insomnia 08/31/2009 Overview: ICD-10 update of inactive term 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 SHIN RESEARCH OTHER*[id number] 6 Anxiety state 08/07/2005 AGORAPHOBIA 08/07/2005 documented as of this encounter (statuses as of 03/18/2023) Resolved Problems Problem Noted Date Resolved Date [...] as of this encounter (statuses as of 03/18/2023) Immunizations Name Administration Dates Next Due 08/07/2016,,11/29/2015,12/201411/05/2016 [...] encounter Miscellaneous Notes * Telephone Encounter - Lissa Phillips - 03/18/2023 12:03 AM EDTRefused Prescriptions: Disp Refills Zolpidem Tartrate ER 12.5 MG Oral Tablet E*30 Tab*0 Sig: TAKE 1 TABLET BY MOUTH AT BEDTIME Refused By: LISSA MITCHELL Reason for Refusal: Duplicate Request * Telephone Encounter - Interface, [facility] S[facility] Inbound - 03/17/2023 7:52 PM EDT Pending Prescriptions: Disp Refills Zolpidem Tartrate ER 12.5 MG Oral Tablet E*30 Tab*0 Sig: TAKE 1 TABLET BY MOUTH AT BEDTIME documented in this encounter Plan of Treatment Upcoming Encounters Date Type Specialty Care Team Description 03/21/2023 [facility] [address] [facility] [address] 03/25/2023 Office Visit Gastroenterology Alexandrea Craen, [place] [address] [facility] [address] [facility]/30/2023 Nurse Only [facility] Nurse Laura [facility] [address] [facility] [phone] Scheduled Procedures Name Priority Associated Diagnoses Date/Ti [...] this encounter Medical Devices Implanted Type Area Sizing Sponger Device Identifier Shelf Expiration Date Model / Serial / Lot Alloderm 2x4cm [id number] (8 Units) - [id number] - [id number] Implanted:Qty : 8 on 2015 by David Rosado MD at [place] [facility] [place] Tissue - Human N/A: Esophagus [employer] 10/21/2016 [id number] / [id number] / [id number] Stent Esoph Endomaxx [id number] - [id number] Implanted:Qty : 1 on 07/09/2013 at [place] [facility] N/A: Esophagus [employer] 07/09/2015 KAIDEN-2315 / / [id number] Stent Esoph Endomaxx [id number] - [id number] Implanted:Qty : 1 on 12/08/2013 at [place] [facility] [employer] 06/23/2016 KAIDEN-1915 / / [id number] Stent Esoph Endomaxx [id number] - [id number] Implanted:Qty : 1 on 10/19/2014 by David Rosado MD at [place] [facility] N/A: Esophagus [employer] 05/23/2017 KAIDEN-2315 / / [id number] Stent Wallflex 27 Mm X 22 Mm [id number] Implanted:Qty : 1 on 2015 by David Rosado MD at [place] [facility] N/A: Esophagus [employer] : ENDOSCOPY [id number] / / Stent Eso Gw [id number] - [id number] Implanted:Qty : 1 on 02/16/2015 by David Rosado MD at [place] [facility] N/A: Esophagus [employer] 04/23/2017 [id number] / / [id number] Plate Cslp 487.355 - [id number] Implanted:Qty : 1 on 09/27/2021 by Messi [...] the patient have Health Care Power of Engineering Team Supervisor? No Full Code 01/12/2015 10:35 PM 01/21/2015 4:44 PM Question Answer Comments Discussion of Advance Directives occurred with: Not Discussed Full Code 12/22/2014 4:26 AM 12/25/2014 5:53 PM This or nu reflects the patients wishes and were consensually agreed upon. Question Answer Comments Discussion of Advance Directives occurred with: Patient Care Teams Patent Litigation Associate Relationship Specialty Start Date End Date Jessee Wisdom MD [address] [place] [address] PCP - General Family Medicine 06/20/17 documented as of this encounter
--- OUTSIDE RECORDS SUMMARY | 2023-09-01 17:21 | External Medical Summary | Summary of Care ---
Author Name Unknown Organization [facility] Address [address] [place] [address] Phone [phone] Care Team Providers Care Irrigating Pump Operator Name Role Phone Jessee Wisdom MD Primary Care Provider +1- [phone] Reason for Visit * Reason Onset Date Comments Medication Refill 03/15/2023 Encounter Details Date Type Department Care Team Description [facility] [address] [place] [address] Michelle Roth MD [address] [place], [place] [phone] Primary insomnia Allergies Active Allergy Reactions Severity Noted Date Comments Ciprofloxacin Nausea/vomiting 01/04/2023 Clindamycin Other (Please comment) 09/19/2020 Stomach pain Latex Rash 07/23/2006 Prolonged exposure only Morphine Other (Please comment) High 02/06/2020 Sulfa Antibiotics Hives 05/05/2004 documented as of this encounter (statuses as of 03/16/2023) Medications Medication Sig Dispensed Refills Start Date [...] as of this encounter (statuses as of 03/16/2023) Active Problems Problem Noted Date Migraine without [...] Depression with anxiety 12/25/2014 Constipation 12/11/2013 senior living current use of anticoagulant t herapy 06/18/2013 Intestinal postoperative nonabsorption 1 08/12/2012 Gastric bypass status for obesity 2012 Dysphagia 10/27/2012 Degeneration of cervical intervertebral disc 04/02/2011 Insomnia 08/31/2009 Overview: ICD-10 update of inactive term 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 SHIN RESEARCH OTHER*[id number] 6 Anxiety state 08/07/2005 AGORAPHOBIA 08/07/2005 documented as of this encounter (statuses as of 03/16/2023) Resolved Problems Problem Noted Date Resolved Date [...] as of this encounter (statuses as of 03/16/2023) Immunizations Name Administration Dates Next Due 08/07/2016, [...] Miscellaneous Notes * Telephone Encounter - Lissa Solares - 03/16/2023 7:27 AM EDTRefused Prescriptions: Disp Refills Zolpidem Tartrate ER 12.5 MG Oral Tablet E*30 Tab*5 Sig: Take one tablet by mouth every night at bedtimeRefused By: LISSA SOLARESReason for Refusal: Duplicate R equest documented in this encounter Plan of Treatment Upcoming Encounters Date Type Specialty Care Team Description 03/21/2023 [facility] [address] [facility] [place] [address] 03/25/2023 Office Visit Gastroenterology Alexandrea Crane, PE[address] [place] [address] 09/30/2023 Nurse Only [facility] ClarissaNurse nelida Annual Wellness [address] [facility] [place] [address] Scheduled Procedures Name Priority Associated Diagnoses Date/Ti [...] this encounter Medical Devices Implanted Type Area Sequins Winder Device Identifier Shelf Expiration Date Model / Serial / Lot Alloderm 2x4cm [id number] (8 Units) - [id number] - [id number] Implanted:Qty : 8 on 2015 by David Rosado MD at [place] [facility] [place] Tissue - Human N/A: Esophagus [employer] 10/21/2016 [id number] / [id number] / [id number] Stent Esoph Endomaxx [id number] - [id number] Implanted:Qty : 1 on 07/09/2013 at [place] [facility] [place] N/A: Esophagus [employer] 07/09/2015 KAIDEN-2315 / / [id number] Stent Esoph Endomaxx [id number] - [id number] Implanted:Qty : 1 on 12/08/2013 at [place] [facility] [place] [employer] 06/23/2016 KAIDEN-1915 / / [id number] Stent Esoph Endomaxx [id number] - [id number] Implanted:Qty : 1 on 10/19/2014 by David Rosado MD at [place] [facility] [place] N/A: Esophagus [email or web address] 05/23/2017 KAIDEN-2315 / / [id number] Stent Wallflex 27 Mm X 22 Mm [id number] Implanted:Qty : 1 on 2015 by David Rosado MD at [place] [facility] [place] N/A: Esophagus [employer] : ENDOSCOPY [id number] / / Stent Eso Gw [id number] - [id number] Implanted:Qty : 1 on 02/16/2015 by David Rosado MD at [place] [facility] [place] N/A: Esophagus [employer] 04/23/2017 [id number] / / [id number] Plate Cslp 487.355 - [id number] Implanted:Qty : 1 on 09/27/2021 by Messi Doll MD at [place] [facility] [place] Right: Spine Cervical SYNTHES 487.355 / / [...] the patient have Health Care Power of Gold Charmer? No Full Code 01/12/2015 10:35 PM 01/21/2015 4:44 PM Question Answer Comments Discussion of Advance Directives occurred with: Not Discussed Full Code 12/22/2014 4:26 AM 12/25/2014 5:53 PM This or nu reflects the patients wishes and were consensually agreed upon. Question Answer Comments Discussion of Advance Directives occurred with: Patient Care Teams Irrigating Pump Operator Relationship Specialty Start Date End Date Jessee Wisdom MD [address] [place] [address] PCP - General Family Medicine 06/20/17 documented as of this encounter
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
[2023-09-01] MEDS: KETOROLAC TROMETHAMINE 15 MG/ML VIAL IV STA (17:38)
[2023-09-01] MEDS: SODIUM CHLORIDE 0.9% 1,000 ML IV ONE (17:38)
[2023-09-01] MEDS: ONDANSETRON INJ 2 MG/ML 2 ML VIAL IV STA (17:38)
[2023-09-01 17:55] LABS: Basophils # (auto) 0.08 K/uL (0.00-0.20); Basophils % (auto) 0.4 %; Eosinophils # (auto) 0.02 K/uL (0.00-0.50); Eosinophils % (auto) 0.1 %; Hematocrit (blood only) 48.8 % (37.0-47.0); Hemoglobin 16.2 g/dl (12.0-16.0); Immature Granulocytes # (auto) 0.11 K/uL (0.01-0.20); Immature Granulocytes % (auto) 0.6 %; Lymphocytes # (auto) 2.43 K/uL (1.20-3.40); Lymphocytes % (auto) 13.6 %; Mean Corpuscular Hgb Conc 33.2 g/dL (32.0-36.0); Mean Corpuscular Volume 87.3 fL (80.0-100.0); Mean Platelet Volume 9.8 fL (9.4-12.4); Monocytes % (auto) 11.2 %; Neutrophils # (auto) 13.29 K/uL (1.40-6.50); Neutrophils % (auto) 74.1 %; Platelet Count 403 K/uL (130-400); RDW Coefficient of Variation 17.8 % (11.5-14.5); RDW Standard Deviation 54.4 fL (36.4-46.3); Red Blood Count 5.59 M/uL (4.20-5.40); White Blood Count 17.93 K/ul (4.8-10.8)
[2023-09-01 18:08] LABS: Albumin Level 4.2 gm/dl (3.4-5.0); Bilirubin Direct 0.1 mg/dl (0-0.2); Bilirubin,Total 0.5 mg/dl (0.2-1.0); Calcium 9.5 mg/dl (8.6-10.3); Creatinine Clr Calc Pharmacy 86.8 ml/min; Est GFR (African American) 85.1 ml/min; Est GFR (Non-African American) 73.4 ml/min; Potassium 3.9 mmol/L (3.5-5.1); Total Protein 8.5 gm/dl (6.0-8.3)
--- NOTE | 2023-09-01 18:31 | CT Scan Report ---
CT abd pelvis wo con CLINICAL HISTORY: L flank pain TECHNIQUE: Helical axial images of the abdomen and pelvis were obtained. Automated dose lowering tech niques and/or adjustment according to patient size were utilized for this exam. This exam was perfor med without intravenous contrast. CT DOSE: 1576.89 mGy.cm COMPARISON: Comparison is made to CT abdomen pelvis 12/01/2022 FINDINGS: Lower chest: Atelectasis versus scarring is bilateral lung bases. Liver: Unremarkable. No focal lesions are seen. Left hepatectomy is seen. Gallbladder and biliary tree: No calcified gallstones. Normal caliber wall. No intra- or extrahepatic biliary ductal dilation. Pancreas: Thickening of the distal pancreas with calcifications noted. Surrounding soft tissue strand ing is seen most prominent posteriorly. Spleen: Patient is status post splenectomy. Adrenals: Unremarkable. Kidneys and ureters: Unremarkable. Bladder: Unremarkable. Reproductive organs: Unremarkable. Bowel: The appendix is normal. Patient is status post gastric bypass surgery. Lymph nodes Retroperitoneal: Subcentimeter lymph nodes are noted. Pelvic: Unremarkable. Mesenteric: Unremarkable. Peritoneum: Normal. Vessels: Unremarkable. Abdominal wall: Unremarkable. Bones: Degenerative changes in the visualized spine. IMPRESSION: Fat stranding about the pancreas may represent acute pancreatitis. No acute peripancreatic fluid eh ections are seen. Evaluation for necrosis is limited by noncontrast technique. Additional findings as above. ACT 112: Negative or not required by law. Electronically signed by: Bereket Rollins M.D. 09/01/2023 6:28 PM
[2023-09-01] MEDS: SODIUM CHLORIDE 0.9% 1,000 ML IV SCH (18:49)
[2023-09-01] MEDS: HYDROmorphone INJ 1 MG/ML SYRINGE IV STA (18:49)
[2023-09-01 19:40] LABS: Partial Thromboplastin Ratio 1.5; Partial Thromboplastin Time 42 Seconds (21-31); Prothrombin Time 63.9 Seconds (9.0-12.0)
[2023-09-01 19:41] LABS: Magnesium 1.7 mg/dl (1.7-2.4)
[2023-09-01 19:57] LABS: INR 6.6 (0.9-1.1)
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
[2023-09-01] MEDS: LACTATED RINGER'S 1,000 ML IV ONE (20:36)
[2023-09-01 21:40] LABS: Appearance Urine Clear (Clear); Bilirubin Urine Negative (Negative); Blood Urine Negative (Negative); Color Urine Dark Yellow; Glucose Urine UA Negative (Negative); Ketones Urine Negative (Negative); Leukocyte Esterase Urine Negative (Negative); Nitrite Urine Negative (Negative); Protein Urine Negative (Negative); Specific Gravity Urine 1.019 (1.000-1.030); Urobilinogen Urine Negative (Negative)
[2023-09-01] MEDS: HYDROmorphone INJ 0.5 MG/0.5 ML SYR IV PRN (22:41)
[2023-09-01] MEDS: AMITRIPTYLINE HCL 50 MG TAB PO SCH (23:12)
[2023-09-01] MEDS: busPIRone 5 MG TAB PO SCH (23:12)
[2023-09-01] MEDS: PHYTONADIONE 5 MG TAB PO STA (23:12)
[2023-09-01] MEDS: tiZANidine HCL 4 MG TABLET PO SCH (23:12)
[2023-09-01] MEDS: ZOLPIDEM TARTRATE 10 MG TAB PO PRN (23:12)
[2023-09-01] MEDS: POLYETHYLENE (MIRALAX) 17 GM PACK PO SCH (23:13)
[2023-09-01] MEDS: PANTOprazole 40 MG TAB PO SCH (23:13)
[2023-09-02] MEDS: LACTATED RINGER'S 1,000 ML IV SCH (02:16)
[2023-09-02] MEDS: oxyCODONE HCL IR 5 MG TAB (IMMEDIATE RELEASE) PO PRN (04:10)
[2023-09-02 07:47] LABS: Prothrombin Time 65.4 Seconds (9.0-12.0)
[2023-09-02] MEDS: LINACLOTIDE 145 MCG CAPSULE PO SCH (07:54)
[2023-09-02] MEDS: DULoxetine HCL 30 MG CAP PO SCH (07:55)
[2023-09-02] MEDS: FLUTICASONE PROPIONATE NA SPR 16 GM BTL SCH (07:55)
[2023-09-02] MEDS: buPROPion XL 300 MG TABCR PO SCH (07:55)
[2023-09-02] MEDS: MULTIVITAMIN TAB PO SCH (07:55)
[2023-09-02] MEDS: ACETAMINOPHEN 500 MG TAB PO PRN (07:59)
[2023-09-02 08:21] LABS: INR 6.7 (0.9-1.1)
[2023-09-02 09:25] LABS: Basophils # (auto) 0.04 K/uL (0.00-0.20); Basophils % (auto) 0.4 %; Eosinophils # (auto) 0.14 K/uL (0.00-0.50); Eosinophils % (auto) 1.5 %; Hematocrit (blood only) 43.3 % (37.0-47.0); Hemoglobin 14.3 g/dl (12.0-16.0); Immature Granulocytes # (auto) 0.03 K/uL (0.01-0.20); Immature Granulocytes % (auto) 0.3 %; Lymphocytes # (auto) 1.78 K/uL (1.20-3.40); Lymphocytes % (auto) 19.4 %; Mean Corpuscular Hemoglobin 28.5 pg (25.0-34.0); Mean Corpuscular Volume 86.3 fL (80.0-100.0); Mean Platelet Volume 10.1 fL (9.4-12.4); Monocytes # (auto) 1.13 K/uL (0.11-0.59); Monocytes % (auto) 12.3 %; Neutrophils # (auto) 6.07 K/uL (1.40-6.50); Neutrophils % (auto) 66.1 %; Platelet Count 354 K/uL (130-400); RDW Coefficient of Variation 17.7 % (11.5-14.5); RDW Standard Deviation 54.3 fL (36.4-46.3); Red Blood Count 5.02 M/uL (4.20-5.40); White Blood Count 9.19 K/ul (4.8-10.8)
[2023-09-02 09:56] LABS: Albumin Globulin Ratio 1.1 (0.9-2); Albumin Level 3.7 gm/dl (3.4-5.0); BUN Creatinine Ratio 14.8 (10-20); Bilirubin,Total 1.2 mg/dl (0.2-1.0); Calcium 8.6 mg/dl (8.6-10.3); Creatinine Clr Calc Pharmacy 96.2 ml/min; Est GFR (African American) 91.5 ml/min; Est GFR (Non-African American) 78.9 ml/min; Globulin 3.3 gm/dl (2.5-4.0); Potassium 4.2 mmol/L (3.5-5.1)
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
[2023-09-02] MEDS: PHYTONADIONE 5 MG TAB PO STA (10:04)
[2023-09-02] MEDS: ACETAMINOPHEN 1,000 MG/100 ML VIAL IV PRN (16:10)
[2023-09-02] MEDS ORDERED: HYDROmorphone INJ 0.5 MG/0.5 ML SYR IV PRN (16:29)
[2023-09-02] MEDS: HYDROmorphone INJ 0.5 MG/0.5 ML SYR IV PRN (17:21)
[2023-09-02 17:36] LABS: Prothrombin Time 30.5 Seconds (9.0-12.0)
--- NOTE | 2023-09-02 18:30 | Hospitalist Progress Note ---
Date of Service September 02, 2023 Assessment & Plan (1) Acute pancreatitis: Plan: Per admitting service notes with addendum: Acute pancreatitis Recurrent episodes History of chronic pancreatitis --AST/ALT, alk phos increasing bilirubin is slightly increased also -- MRCP ordered --Continue IV fluids with lactated Ringer's 200 cc/h Pain control as needed Dilaudid Electrolyte monitoring and replacement --N.p.o. except for sips of water, coffee per patient's request -- GI consulted recurrent PE on Coumadin, INR supratherapeutic Patient denies bleeding symptoms. Patient finds it cumbersome to go for outpatient PT/INR lab draws. Anticoagulation clinic has not been able to reach patient as per outpatient records. INR still 6.0 Another vitamin K 2.5 mg p.o. given INR now 3.0 Monitor closely Recent tick bite Likely less than 36 hours Antibiotic and testing not indicated for now given circumstances Check for Lyme, anaplasmosis Start ceftriaxone IV history of bariatric surgery chronic pain hx GERD, stable on PPI chronic constipation on bowel regimen anxiety/mood disorder, at baseline past tobacco abuse. Will request AM provider to contact [facility] Hematology (Patient known to Dr. Hermosillo who has since retired. Last visit was 2016 as per outpatient records.) DVT prophylaxis. IV heparin while Coumadin on hold once INR subtherapeutic Full code Admission and Anticipated Discharge Date Admission Date: September 01, 2023 Subjective Follow-up for acute pancreatitis, etc. Resting in bed, sitting up, not in distress Still having waves of abdominal pain Intermittent nausea No fevers or chills no chest pain, dyspnea, palpitations, dizziness No other new symptom Review of Systems Review of Systems: all noted and negative except for above Physical Exam Physical Exam: General- oriented x 3, not in distress, speaks in sentences with no effort or accessory muscle use Eyes- anicteric Neck- no JVD Lungs- clear breath sounds bilaterally, no rales/wheezes Heart- normal rate, regular rhythm; no murmurs Abdomen- normal bowel sounds, nondistended, soft, mild central abdominal tenderness Extremities- no pretibial edema, no calf tenderness Neuro- alert, oriented x 3; no gross focal neurologic deficits Skin- warm & dry Results & Data Results & Data Vital Signs (Past 12 Hours) Vital Signs Temp Pulse Pulse Resp BP Pulse Ox O2 Del Method 09/02/23 15:34 36.9 C 85 16 122/82 92 Nasal Cannula 09/02/23 11:17 36.9 C 94 H 24 124/78 90 Nasal Cannula 09/02/23 08:44 Nasal Cannula 09/02/23 08:38 97 H 26 H 95 Nasal Cannula 09/02/23 08:18 90 Nasal Cannula 09/02/23 08:14 36.7 C 104 H 28 H 138/84 77 L Room Air O2 Flow Rate 09/02/23 15:34 2 09/02/23 11:17 2 09/02/23 08:44 3 09/02/23 08:38 2 09/02/23 08:18 2 09/02/23 08:14 all noted and reviewed including below (1) Acute pancreatitis Acute pancreatitis complication: unspecified Pancreatitis type: unspecified pancreatitis type Qualified Code(s): K85.90 - Acute pancreatitis without necrosis or infection, unspecified
[2023-09-02] MEDS: cefTRIAXone SODIUM 2,000 MG in DEXTROSE 5 % MINI-B 50 ML IV SCH (20:33)
[2023-09-02] MEDS: NALOXONE HCL 0.4 MG/1 ML VIAL/CARP IV STA (21:46)
--- NOTE | 2023-09-02 22:02 | Communication Note ---
Date of Service: September 02, 2023
--- NOTE | 2023-09-03 07:40 | XRay Report ---
XR chest 1V portable CLINICAL HISTORY: low o2 COMPARISON STUDY: Chest CT November 06, 2019. Chest radiograph May 16, 2022. FINDINGS: Postoperative findings within the spine are incidentally noted. Elevation of the right pratik diaphragm is unchanged. Linear bibasilar densities favor atelectasis. There is no pneumothorax or ple ural effusion. Cardiomediastinal silhouette is unremarkable. There is pulmonary vascular congestion w ithout overt pulmonary edema. IMPRESSION: 1. Pulmonary vascular congestion without overt pulmonary edema. 2. Stable elevation of the right hemidiaphragm. Linear bibasilar densities consistent with atelectasi s. ACT 112: Negative or not required by law. Electronically signed by: John Parham M.D. 09/03/2023 7:38 AM
[2023-09-03 07:53] LABS: INR 1.7 (0.9-1.1); Prothrombin Time 17.7 Seconds (9.0-12.0)
--- NOTE | 2023-09-03 08:57 | Gastroenterology Progress Note ---
Date of Service September 03, 2023 Assessment & Plan (1) Acute pancreatitis: Plan 58 year old female with history of RYGB in 2013, complicated by previous leaks requiring revision, narrowed gastrojejunostomy w previous series of dilations, s/p CCY, pancreatitis admitted with abd pain, imaging concerning for acute pancreatitis. She notes her previous bout of pancreatitis was unknown etiology. This AM her LFTs have become acutely elevated w/ Tbili 1.2, AST 920, ALT 670 and ALKP 415. MRCP pending, pending results will discuss case with biliary team, but given her history of RYGB w/ numerous revision if EUS/ERCP is indicated she may need to be transferred to a larger facility with EDGE capability Continue ceftriaxone Continue symptomatic management NPO for bowel rest Antiemetics PRN Analgesia PRN Thank you for allowing us to participate in the care of this patient. Please call with any acute changes, questions or concerns. Please see addendum below with additional recommendation from my supervising physician. Admission and Anticipated Discharge Date Admission Date: September 01, 2023 Supervising Physician Co-Signing Physician Notes Agree with pe and plan as documented. Altered anatomy. Admitted with abdominal pain - obese abdomen, feels generally like it hurts but no localized area of palpation. Agree with further plan of care as documented. Subjective Persistent, unchanged abd pain. Continues to have nausea. No vomiting. LFTS are increased today MRCP is pending Review of Systems Review of Systems: All systems reviewed & are unremarkable except as noted in HPI & below Physical Exam Constitutional: WD/WN, vitals as above Respiratory: normal respiratory effort, lungs clear to auscultation Cardiovascular: Rate/Rhythm: regular rate Gastrointestinal (Abdomen): Percussion/Palpation: + abdomen tender and abdomen soft; no guarding and abdomen not rigid Skin: no rashes, warm and dry Results & Data Vital Signs (Past 12 Hours) Vital Signs Temp Pulse Resp BP Pulse Ox O2 Del Method O2 Flow Rate 09/03/23 07:37 36.5 C 70 16 135/84 98 Nasal Cannula 3 09/02/23 20:53 36.8 C 81 119/78 94 Nasal Cannula 2 Laboratory Results 09/03/23 09/02/23 09/02/23 Range/Units 07:00 21:20 18:58 WBC (4.8-10.8) K/ul RBC (4.20-5.40) M/uL Hgb (12.0-16.0) g/dl Hct (37.0-47.0) % MCV (80.0-100.0) fL MCH (25.0-34.0) pg MCHC (32.0-36.0) g/dL RDW Std Deviation (36.4-46.3) fL RDW Coeff of Mukul (11.5-14.5) % Plt Count (130-400) K/uL MPV (9.4-12.4) fL Immature Gran % (Auto) % Neut % (Auto) % Lymph % (Auto) % [place] % (Auto) % Eos % (Auto) % Baso % (Auto) % Neut # (Auto) (1.40-6.50) K/uL Lymph # (Auto) (1.20-3.40) K/uL [place] # (Auto) (0.11-0.59) K/uL Eos # (Auto) (0.00-0.50) K/uL Baso # (Auto) (0.00-0.20) K/uL Immature Gran # (Auto) (0.01-0.20) K/uL PT 17.7 H (9.0-12.0) Seconds INR 1.7 H (0.9-1.1) Sodium (136-145) mmol/L Potassium (3.5-5.1) mmol/L Chloride (98-107) mmol/L Carbon Dioxide (21-32) mmol/L Anion Gap (3-11) BUN (6-23) mg/dl Creatinine (0.6-1.2) mg/dl Est Cr Clr Drug Dosing ml/min Est GFR ( Amer) ml/min Est GFR (Non-Af Amer) ml/min BUN/Creatinine Ratio (10-20) Glucose (70-99(Fasting)) mg/dl POC Glucose 93 (70-99) mg/dl Calcium (8.6-10.3) mg/dl Total Bilirubin (0.2-1.0) mg/dl AST (13-39) U/L ALT (7-52) U/L Alkaline Phosphatase (34-104) U/L Total Protein (6.0-8.3) gm/dl Albumin (3.4-5.0) gm/dl Globulin (2.5-4.0) gm/dl Albumin/Globulin Ratio (0.9-2) Anaplasma Smear A. phagocytophilum DNA Babesia Smear Babesia microti DNA PCR Pending Lyme Disease Screen Pending E.chaffeensis DNA (PCR) Pending Q Fever Phase I IgG Ab Pending Q Fever Phase I IgM Ab Pending Q Fever Phase II IgG Ab Pending Q Fever Phase II IgM Ab Pending Rickettsia IgG Ab Pending Rickettsia IgM Ab Pending Typhus Fever IgG Ab Pending Typhus Fever IgM Ab Pending 09/02/23 09/02/23 Range/Units 16:55 08:53 WBC 9.19 (4.8-10.8) K/ul RBC 5.02 (4.20-5.40) M/uL Hgb 14.3 (12.0-16.0) g/dl Hct 43.3 (37.0-47.0) % MCV 86.3 (80.0-100.0) fL MCH 28.5 (25.0-34.0) pg MCHC 33.0 (32.0-36.0) g/dL RDW Std Deviation 54.3 H (36.4-46.3) fL RDW Coeff of Mukul 17.7 H (11.5-14.5) % Plt Count 354 (130-400) K/uL MPV 10.1 (9.4-12.4) fL Immature Gran % (Auto) 0.3 % Neut % (Auto) 66.1 % Lymph % (Auto) 19.4 % [place] % (Auto) 12.3 % Eos % (Auto) 1.5 % Baso % (Auto) 0.4 % Neut # (Auto) 6.07 (1.40-6.50) K/uL Lymph # (Auto) 1.78 (1.20-3.40) K/uL [place] # (Auto) 1.13 H (0.11-0.59) K/uL Eos # (Auto) 0.14 (0.00-0.50) K/uL Baso # (Auto) 0.04 (0.00-0.20) K/uL Immature Gran # (Auto) 0.03 (0.01-0.20) K/uL PT 30.5 H (9.0-12.0) Seconds INR 3.0 H (0.9-1.1) Sodium 136 (136-145) mmol/L Potassium 4.2 (3.5-5.1) mmol/L Chloride 104 (98-107) mmol/L Carbon Dioxide 26 (21-32) mmol/L Anion Gap 6 (3-11) BUN 12 (6-23) mg/dl Creatinine 0.81 (0.6-1.2) mg/dl Est Cr Clr Drug Dosing 96.2 ml/min Est GFR ( Amer) 91.5 ml/min Est GFR (Non-Af Amer) 78.9 ml/min BUN/Creatinine Ratio 14.8 (10-20) Glucose 78 (70-99(Fasting)) mg/dl POC Glucose (70-99) mg/dl Calcium 8.6 (8.6-10.3) mg/dl Total Bilirubin 1.2 H D (0.2-1.0) mg/dl AST 920 H (13-39) U/L ALT 670 H (7-52) U/L Alkaline Phosphatase 415 H D (34-104) U/L Total Protein 7.0 (6.0-8.3) gm/dl Albumin 3.7 (3.4-5.0) gm/dl Globulin 3.3 (2.5-4.0) gm/dl Albumin/Globulin Ratio 1.1 (0.9-2) Anaplasma Smear See Comment A. phagocytophilum DNA Pending Babesia Smear See Comment Babesia microti DNA PCR Lyme Disease Screen E.chaffeensis DNA (PCR) Q Fever Phase I IgG Ab Q Fever Phase I IgM Ab Q Fever Phase II IgG Ab Q Fever Phase II IgM Ab Rickettsia IgG Ab Rickettsia IgM Ab Typhus Fever IgG Ab Typhus Fever IgM Ab (1) Acute pancreatitis Acute pancreatitis complication: unspecified Pancreatitis type: unspecified pancreatitis type Qualified Code(s): K85.90 - Acute pancreatitis without necrosis or infection, unspecified
[2023-09-03 09:09] LABS: Lyme Screen Rflx Confirmation Positive (Negative)
[2023-09-03 09:43] LABS: Basophils # (auto) 0.08 K/uL (0.00-0.20); Basophils % (auto) 0.9 %; Eosinophils # (auto) 0.32 K/uL (0.00-0.50); Eosinophils % (auto) 3.8 %; Hematocrit (blood only) 41.6 % (37.0-47.0); Immature Granulocytes # (auto) 0.02 K/uL (0.01-0.20); Immature Granulocytes % (auto) 0.2 %; Lymphocytes # (auto) 3.17 K/uL (1.20-3.40); Lymphocytes % (auto) 37.3 %; Mean Corpuscular Hemoglobin 29.3 pg (25.0-34.0); Mean Corpuscular Hgb Conc 33.7 g/dL (32.0-36.0); Mean Platelet Volume 10.9 fL (9.4-12.4); Monocytes # (auto) 1.09 K/uL (0.11-0.59); Monocytes % (auto) 12.8 %; Neutrophils # (auto) 3.81 K/uL (1.40-6.50); Platelet Count 357 K/uL (130-400); RDW Coefficient of Variation 17.8 % (11.5-14.5); RDW Standard Deviation 56.3 fL (36.4-46.3); Red Blood Count 4.78 M/uL (4.20-5.40); White Blood Count 8.49 K/ul (4.8-10.8)
[2023-09-03 09:47] LABS: Albumin Level 3.7 gm/dl (3.4-5.0); BUN Creatinine Ratio 10.9 (10-20); Bilirubin Direct 0.5 mg/dl (0-0.2); Calcium 8.7 mg/dl (8.6-10.3); Creatinine Clr Calc Pharmacy 121.8 ml/min; Est GFR (African American) 112.4 ml/min; Potassium 4.1 mmol/L (3.5-5.1)
--- NOTE | 2023-09-03 10:11 | Magnetic Resonance Report ---
MR MRCP HISTORY: 58 years-old Female acute panc, hx rygb and ccy acute nausea with generalized abdominal andres n. History of acute pancreatitis. COMPARISON: CT abdomen and pelvis 09/01/2023, MRCP 06/28/2015. TECHNIQUE: MRCP was obtained without the use of IV contrast. FINDINGS: Study is mildly motion degraded. Right hemidiaphragmatic elevation with probable bibasilar atelectasi s redemonstrated. Postoperative changes of the bowel. Moderate fecal retention. Splenectomy. Chronic postoperative changes of the abdominal left upper quadrant. 1.2 cm right adrenal gland adenoma redemo nstrated. A normal left adrenal gland is not identified. Chronic nodular soft tissue thickening anter ior to the superior pole left kidney redemonstrated. Chronic postoperative changes of the liver. 1.8 cm slightly T2 hyperintense lesion within the right hepatic lobe is unchanged dating back to at least 2015 suggestive of a benign etiology. Cholecystectomy. No hydronephrosis. Aorta and IVC are unremark able. No lymphadenopathy. Wall thickening of the distal esophagus again noted. Findings of upzor-zs-kxxiydf pancreatitis redemonstrated. There are areas of cystic dilation involvin g the pancreatic duct within the tail which appears similar, however, has progressed from the 2016 st udy with probable numerous small sidebranch IPMN's. There is an apparent chronic stricture of the lopez creatic duct within the tail on image 146 of series 701, which was also present on the 2016 study. Th is is within the region of the pancreatic calcifications seen on the CT study. No acute peripancreati c fluid collections. Common bile duct measures 7 mm. No biliary stricture or choledocholithiasis. Chr onic appearance of the left hepatic lobe biliary tree. Subcentimeter gastroesophageal lymph nodes are again seen. IMPRESSION: 1. Jggqe-el-jmrimdj pancreatitis. There is a chronic pancreatic duct stricture within the tail with c hronic and progressive upstream dilation and parenchymal calcifications. 2. No acute peripancreatic fluid collection. 3. Chronic extensive postoperative changes of the abdomen redemonstrated as above. 4. Chronic wall thickening of the distal esophagus, which should be correlated clinically to exclude a nonspecific esophagitis. 5. Cholecystectomy with mild likely postsurgical common bile duct dilation. No choledocholithiasis. ACT 112: Negative or not required by law. The above report was generated using voice recognition software. It may contain grammatical, syntax o r spelling errors. Dictated: 09/03/2023 7:38 AM Transcribed: 09/03/2023 9:31 AM Joe [id number] [email or web address] Electronically signed by: Ish Jarrett M.D. 09/03/2023 10:09 AM
[2023-09-03 13:01] LABS: Influenza A virus by PCR Negative (Neg); Influenza B virus by PCR Negative (Neg); RSV by PCR Negative (Neg); SARS CoV2 RNA(COVID-19) Ceph NEGATIVE (Negative)
--- NOTE | 2023-09-03 17:15 | Hospitalist Progress Note ---
Date of Service September 03, 2023 Assessment & Plan (1) Acute pancreatitis: Plan: Per admitting service notes with addendum: ACUTE PANCREATITIS RECURRENT EPISODES HISTORY OF CHRONIC PANCREATITIS --AST/ALT, alk phos increasing bilirubin is slightly increased also -- MRCP ordered: 1. Qkkui-qi-accrkrk pancreatitis. 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 2. No acute peripancreatic fluid collection. 3. Chronic extensive postoperative changes of the abdomen redemonstrated as above. 4. Chronic wall thickening of the distal esophagus, which should be correlated clinically to exclude a nonspecific esophagitis. 5. Cholecystectomy with mild likely postsurgical common bile duct dilation. No choledocholithiasis. --given IV fluids with lactated Ringer's 200 cc/h Pain control as needed Dilaudid Electrolyte monitoring and replacement --N.p.o. except for sips of water, coffee per patient's request -- GI consulted 09/02 Patient's abdominal pain seems to have improved today AST ALT improving Alk phos still elevated Lipase normalized Discussed with GI service Not recommending ERCP at this time, continue to monitor clinically and liver panel Inquired regarding possible pancreatic duct stent placement in light of chronic pancreatic duct stricture found within the tail of the pancreas, recurrent acute pancreatitis As per GI, not recommended at this point given anatomy Patient requesting diet, clear liquids ordered RECENT TICK BITE, LYME DISEASE Tick bite panel ordered Positive Lyme Anaplasmosis, Babesia, Ehrlichia, etc. pending Continue ceftriaxone IV day #2 RECURRENT PE ON COUMADIN INR supratherapeutic on admission: 6's Patient denies bleeding symptoms. Patient finds it cumbersome to go for outpatient PT/INR lab draws. Anticoagulation clinic has not been able to reach patient as per outpatient records. Last INR check on record February 2023 Given total of 5 mg of vitamin K p.o. 09/02 [facility] outpatient records reviewed Last visit with cafe manager was in 2017-Dr. Charles Hermosillo His notes indicate that patient has had acute bilateral PEs in 2012 after surgery, and progressive recurrent PE in 2014 Hypercoagulable workup was completed and was negative According to Dr. Harvey, in view of her history, he recommends lifelong anticoagulation INR today is 1.7 We will start with heparin SC 3 times daily for DVT prophylaxis If patient remains stable's, no plans for procedures, resume anticoagulation May benefit from NOAC-Eliquis as patient having difficulty with Coumadin clinic follow-up history of bariatric surgery chronic pain hx GERD, stable on PPI chronic constipation on bowel regimen anxiety/mood disorder, at baseline past tobacco abuse. DVT prophylaxis. Heparin subcutaneous for DVT prophylaxis Disposition d/c home when medically stable Admission and Anticipated Discharge Date Admission Date: September 01, 2023 Subjective Follow-up for recurrent pancreatitis, etc. Events overnight noted, received Narcan for drowsiness Seen resting in bed, sitting up, not in distress States pain seems to be somewhat better compared to yesterday No nausea, no BM yet No shortness of breath, chest pain, dizziness, fevers or chills No other new symptom Review of Systems Review of Systems: all noted and negative except for above Physical Exam Physical Exam: General- oriented x 3, not in distress, speaks in sentences with no effort or accessory muscle use Eyes- anicteric Neck- no JVD Lungs- clear breath sounds bilaterally, no rales/wheezes Heart- normal rate, regular rhythm; no murmurs Abdomen- normal bowel sounds, nondistended, soft, mild epigastric tenderness Extremities- no pretibial edema, no calf tenderness Neuro- alert, oriented x 3; no gross focal neurologic deficits Skin- warm & dry Results & Data Results & Data Vital Signs (Past 12 Hours) Vital Signs Temp Pulse Pulse Resp BP Pulse Ox O2 Del Method 09/03/23 14:42 36.3 C L 92 H 16 138/78 98 Nasal Cannula 09/03/23 11:27 36.4 C L 85 18 138/77 95 Nasal Cannula 09/03/23 07:37 36.5 C 70 16 135/84 98 Nasal Cannula O2 Flow Rate 09/03/23 14:42 3 09/03/23 11:27 3 09/03/23 07:37 3 all noted and reviewed including below (1) Acute pancreatitis Acute pancreatitis complication: unspecified Pancreatitis type: unspecified pancreatitis type Qualified Code(s): K85.90 - Acute pancreatitis without necrosis or infection, unspecified
[2023-09-03] MEDS: HEPARIN SOD 5,000 UNIT/0.5 ML VIAL SQ SCH (21:02)
[2023-09-04 08:48] LABS: Basophils # (auto) 0.08 K/uL (0.00-0.20); Basophils % (auto) 1.2 %; Eosinophils # (auto) 0.43 K/uL (0.00-0.50); Eosinophils % (auto) 6.2 %; Hematocrit (blood only) 40.8 % (37.0-47.0); Hemoglobin 13.9 g/dl (12.0-16.0); Immature Granulocytes # (auto) 0.01 K/uL (0.01-0.20); Immature Granulocytes % (auto) 0.1 %; Lymphocytes # (auto) 2.92 K/uL (1.20-3.40); Mean Corpuscular Hemoglobin 29.4 pg (25.0-34.0); Mean Corpuscular Hgb Conc 34.1 g/dL (32.0-36.0); Mean Corpuscular Volume 86.4 fL (80.0-100.0); Mean Platelet Volume 10.1 fL (9.4-12.4); Monocytes # (auto) 0.87 K/uL (0.11-0.59); Monocytes % (auto) 12.5 %; Neutrophils # (auto) 2.64 K/uL (1.40-6.50); Platelet Count 361 K/uL (130-400); RDW Coefficient of Variation 17.5 % (11.5-14.5); RDW Standard Deviation 55.9 fL (36.4-46.3); Red Blood Count 4.72 M/uL (4.20-5.40); White Blood Count 6.95 K/ul (4.8-10.8)
--- NOTE | 2023-09-04 09:04 | Gastroenterology Progress Note ---
Date of Service September 04, 2023 Assessment & Plan (1) Acute pancreatitis: Plan 58 year old female with history of RYGB in 2013, complicated by previous leaks requiring revision, narrowed gastrojejunostomy w previous series of dilations, s/p CCY, pancreatitis admitted with abd pain, imaging concerning for acute pancreatitis and elevated LFTs MRCP reviewed no indiction for acute biliary procedure Trend LFTs May continue low fat diet as tolerated Continue ceftriaxone Continue symptomatic management Antiemetics PRN Analgesia PRN Thank you for allowing us to participate in the care of this patient. Please call with any acute changes, questions or concerns. Please see addendum below with additional recommendation from my supervising physician. Admission and Anticipated Discharge Date Admission Date: September 01, 2023 Supervising Physician Co-Signing Physician Notes Agree with pe and plan as documented, obese soft abdomen. Pain slowly improving, lft's downtrending. Agree with further plan of care as documented. Subjective MRCP reviewed Transfer cancelled AM labs pending Feeling better Tolerating clear liquids No vomiting Pain is better controlled Review of Systems Review of Systems: All systems reviewed & are unremarkable except as noted in HPI & below Physical Exam Constitutional: WD/WN, vitals as above Respiratory: normal respiratory effort, lungs clear to auscultation Cardiovascular: Rate/Rhythm: regular rate Gastrointestinal (Abdomen): normal bowel sounds, soft, nontender, no hepatosplenomegaly Skin: no rashes, warm and dry Results & Data Vital Signs (Past 12 Hours) Vital Signs Temp Pulse Resp BP Pulse Ox O2 Del Method O2 Flow Rate 09/04/23 08:45 Nasal Cannula 2 09/04/23 07:21 36.4 C L 63 14 121/77 99 Room Air Laboratory Results 09/04/23 09/03/23 09/03/23 Range/Units 08:15 11:12 10:03 WBC 6.95 (4.8-10.8) K/ul RBC 4.72 (4.20-5.40) M/uL Hgb 13.9 (12.0-16.0) g/dl Hct 40.8 (37.0-47.0) % MCV 86.4 (80.0-100.0) fL MCH 29.4 (25.0-34.0) pg MCHC 34.1 (32.0-36.0) g/dL RDW Std Deviation 55.9 H (36.4-46.3) fL RDW Coeff of Mukul 17.5 H (11.5-14.5) % Plt Count 361 (130-400) K/uL MPV 10.1 (9.4-12.4) fL Immature Gran % (Auto) 0.1 % Neut % (Auto) 38.0 % Lymph % (Auto) 42.0 % [place] % (Auto) 12.5 % Eos % (Auto) 6.2 % Baso % (Auto) 1.2 % Neut # (Auto) 2.64 (1.40-6.50) K/uL Lymph # (Auto) 2.92 (1.20-3.40) K/uL [place] # (Auto) 0.87 H (0.11-0.59) K/uL Eos # (Auto) 0.43 (0.00-0.50) K/uL Baso # (Auto) 0.08 (0.00-0.20) K/uL Immature Gran # (Auto) 0.01 (0.01-0.20) K/uL PT Pending INR Pending Sodium Pending (136-145) mmol/L Potassium Pending (3.5-5.1) mmol/L Chloride Pending (98-107) mmol/L Carbon Dioxide Pending (21-32) mmol/L Anion Gap Pending (3-11) BUN Pending (6-23) mg/dl Creatinine Pending (0.6-1.2) mg/dl Est Cr Clr Drug Dosing Pending ml/min Est GFR ( Amer) Pending ml/min Est GFR (Non-Af Amer) Pending ml/min BUN/Creatinine Ratio Pending (10-20) Glucose Pending (70-99(Fasting)) mg/dl Calcium Pending (8.6-10.3) mg/dl Total Bilirubin Pending (0.2-1.0) mg/dl Direct Bilirubin Pending (0-0.2) mg/dl AST Pending (13-39) U/L ALT Pending (7-52) U/L Alkaline Phosphatase Pending (34-104) U/L Total Protein Pending (6.0-8.3) gm/dl Albumin Pending (3.4-5.0) gm/dl Lipase 20 (11-82) U/L Lyme Disease Screen (Negative) Lyme Disease IgG Ab (Negative) Lyme Disease IgM Ab (Negative) SARS-CoV-2 (PCR) NEGATIVE (Negative) Influenza Type A (PCR) Negative (Neg) Influenza Type B (PCR) Negative (Neg) RSV (RT-PCR) Negative (Neg) 09/03/23 09/03/23 09/03/23 Range/Units 09:06 07:05 07:00 WBC 8.49 (4.8-10.8) K/ul RBC 4.78 (4.20-5.40) M/uL Hgb 14.0 (12.0-16.0) g/dl Hct 41.6 (37.0-47.0) % MCV 87.0 (80.0-100.0) fL MCH 29.3 (25.0-34.0) pg MCHC 33.7 (32.0-36.0) g/dL RDW Std Deviation 56.3 H (36.4-46.3) fL RDW Coeff of Mukul 17.8 H (11.5-14.5) % Plt Count 357 (130-400) K/uL MPV 10.9 (9.4-12.4) fL Immature Gran % (Auto) 0.2 % Neut % (Auto) 45.0 % Lymph % (Auto) 37.3 % [place] % (Auto) 12.8 % Eos % (Auto) 3.8 % Baso % (Auto) 0.9 % Neut # (Auto) 3.81 (1.40-6.50) K/uL Lymph # (Auto) 3.17 (1.20-3.40) K/uL [place] # (Auto) 1.09 H (0.11-0.59) K/uL Eos # (Auto) 0.32 (0.00-0.50) K/uL Baso # (Auto) 0.08 (0.00-0.20) K/uL Immature Gran # (Auto) 0.02 (0.01-0.20) K/uL PT INR Sodium 137 (136-145) mmol/L Potassium 4.1 (3.5-5.1) mmol/L Chloride 103 (98-107) mmol/L Carbon Dioxide 27 (21-32) mmol/L Anion Gap 7 (3-11) BUN 7 (6-23) mg/dl Creatinine 0.64 (0.6-1.2) mg/dl Est Cr Clr Drug Dosing 121.8 ml/min Est GFR ( Amer) 112.4 ml/min Est GFR (Non-Af Amer) 97.0 ml/min BUN/Creatinine Ratio 10.9 (10-20) Glucose 76 (70-99(Fasting)) mg/dl Calcium 8.7 (8.6-10.3) mg/dl Total Bilirubin 1.0 (0.2-1.0) mg/dl Direct Bilirubin 0.5 H (0-0.2) mg/dl AST 423 H (13-39) U/L ALT 430 H (7-52) U/L Alkaline Phosphatase 421 H (34-104) U/L Total Protein 7.0 (6.0-8.3) gm/dl Albumin 3.7 (3.4-5.0) gm/dl Lipase (11-82) U/L Lyme Disease Screen Positive H (Negative) Lyme Disease IgG Ab Positive H (Negative) Lyme Disease IgM Ab Positive H (Negative) SARS-CoV-2 (PCR) (Negative) Influenza Type A (PCR) (Neg) Influenza Type B (PCR) (Neg) RSV (RT-PCR) (Neg) (1) Acute pancreatitis Acute pancreatitis complication: unspecified Pancreatitis type: unspecified pancreatitis type Qualified Code(s): K85.90 - Acute pancreatitis without necrosis or infection, unspecified
[2023-09-04 09:05] LABS: Albumin Level 3.7 gm/dl (3.4-5.0); Bilirubin Direct 0.1 mg/dl (0-0.2); Bilirubin,Total 0.6 mg/dl (0.2-1.0); Calcium 8.7 mg/dl (8.6-10.3); Potassium 4.3 mmol/L (3.5-5.1)
[2023-09-04 09:07] LABS: INR 1.4 (0.9-1.1); Prothrombin Time 14.9 Seconds (9.0-12.0)
[2023-09-04 09:11] LABS: BUN Creatinine Ratio 5.9 (10-20); Creatinine Clr Calc Pharmacy 114.6 ml/min; Est GFR (African American) 110.2 ml/min; Est GFR (Non-African American) 95.1 ml/min; Total Protein 6.8 gm/dl (6.0-8.3)
--- NOTE | 2023-09-04 15:23 | Hospitalist Progress Note ---
Date of Service September 04, 2023 Assessment & Plan (1) Acute pancreatitis: Plan: Per admitting service notes with addendum: ACUTE PANCREATITIS RECURRENT EPISODES HISTORY OF CHRONIC PANCREATITIS --AST/ALT, alk phos increasing bilirubin is slightly increased also -- MRCP ordered: 1. Flnie-vo-roezeqc pancreatitis. 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 2. No acute peripancreatic fluid collection. 3. Chronic extensive postoperative changes of the abdomen redemonstrated as above. 4. Chronic wall thickening of the distal esophagus, which should be correlated clinically to exclude a nonspecific esophagitis. 5. Cholecystectomy with mild likely postsurgical common bile duct dilation. No choledocholithiasis. Pt treated conservatively Discussed with GI service Not recommending ERCP at this time, continue to monitor clinically and liver panel Inquired regarding possible pancreatic duct stent placement in light of chronic pancreatic duct stricture found within the tail of the pancreas, recurrent acute pancreatitis As per GI, not recommended at this point given anatomy - recommendations are for conservative management Pt off IVF and tolerating diet LFTS improving AST 241, ALT 315, ALK Phos 492 RECENT TICK BITE, LYME DISEASE Tick bite panel ordered Positive Lyme awaiting western blot Anaplasmosis, Babesia, Ehrlichia, etc. pending Continue ceftriaxone IV day #3 RECURRENT PE ON COUMADIN INR supratherapeutic on admission: 6's Patient denies bleeding symptoms. Patient finds it cumbersome to go for outpatient PT/INR lab draws. Anticoagulation clinic has not been able to reach patient as per outpatient records. Last INR check on record February 2023 Given total of 5 mg of vitamin K p.o. Lifelong anticoagulation is recommended in patient It was recommended pt switch to eliquis but she denies being able to afford medication will resume coumadin this evening with daily INR history of bariatric surgery chronic pain hx GERD, stable on PPI chronic constipation on bowel regimen anxiety/mood disorder, at baseline past tobacco abuse. DVT prophylaxis. resume warfarin, daily INR, encourage close f/u as outpatient for INR checks Disposition Pt tolerating low fat diet, may be able to be d/c tomorrow FULL CODE PCP: Artis Pt was seen and examined in collaboration with Dr. Robertson, please see addendum A total of 45 minutes was spent coordinating, documenting, and providing care for this patient excluding time spent in the performance of separately billed services. This included personally viewing all current laboratories and imaging studies, medication reconciliation, outpatient chart review, and discussion with specialists. Admission and Anticipated Discharge Date Admission Date: September 01, 2023 Supervising Physician Co-Signing Physician Notes Patient seen and examined at bedside. She reports pain reoccurred after breakfast. GI recommends conservative care. Patient unable to afford Eliquis. Coumadin resumed I have reviewed the advanced practitioner's documentation, and I agree with, and take responsibility for the plan of care I spent a total of 20 minutes coordinating, documenting, and providing care for this patient excluding time spent in the performance of separately billed services. All of the aforementioned completed while collaborating with the assigned advanced practitioner for a full treatment plan Subjective Patient was seen and examined in 386 bed 1 for follow-up of pancreatitis. She ate clear liquids for breakfast and then immediately developed epigastric and left upper quadrant abdominal pain. She states she did not take any pain medication prior to eating. She denies any nausea or vomiting. She denies any fever, chills, pain, shortness of breath. Review of Systems Review of Systems: All systems reviewed & are unremarkable except as noted in HPI & below Physical Exam Physical Exam: Gen: WD/WN, NAD, A&O x3 HEENT: Normocephalic, atraumatic, conjunctivae moist, sclerae anicteric, mucous membranes moist. Lung: Clear to Auscultation bilaterally, no wheezes/rales/rhonchi Heart: Regular rate, regular rhythm, no murmurs, rubs, or gallops Abdomen: Soft, tender to touch left upper quadrant, no rebound, no guarding, no rigidity, ND +BS x 4 Extremities: No edema Skin: Warm, no rash, negative turgor. Results & Data Results & Data Vital Signs (Past 12 Hours) Vital Signs Temp Pulse Resp BP Pulse Ox O2 Del Method O2 Flow Rate 09/04/23 08:45 Nasal Cannula 2 09/04/23 07:21 36.4 C L 63 14 121/77 99 Room Air Laboratory Results Short CBC 09/04/23 Range/Units 08:15 WBC 6.95 (4.8-10.8) K/ul Hgb 13.9 (12.0-16.0) g/dl Hct 40.8 (37.0-47.0) % Plt Count 361 (130-400) K/uL BMP 09/04/23 08:15 Sodium 136 Potassium 4.3 Chloride 102 Carbon Dioxide 29 BUN 4 L Creatinine 0.68 Glucose 109 H Calcium 8.7 Liver Function 09/04/23 Range/Units 08:15 Total Bilirubin 0.6 (0.2-1.0) mg/dl Direct Bilirubin 0.1 (0-0.2) mg/dl AST 241 H (13-39) U/L ALT 315 H (7-52) U/L Alkaline Phosphatase 492 H (34-104) U/L Albumin 3.7 (3.4-5.0) gm/dl Medications Administered Current Inpatient Medications Amitriptyline HCl (Amitriptyline Hcl 50 Mg Tab) 50 mg PO HS [facility] Stop: 10/01/23 20:59 Last Admin: 09/03/23 21:02 Dose: 50 mg Bupropion HCl (Bupropion Xl 300 Mg Tabcr) 300 mg PO QAM [facility] Stop: 10/02/23 08:59 Last Admin: 09/04/23 07:50 Dose: 300 mg Buspirone HCl (Buspirone 5 Mg Tab) 10 mg PO BID STEVEN Stop: 10/01/23 20:59 Last Admin: 09/04/23 07:50 Dose: 10 mg Duloxetine HCl (Duloxetine Hcl 30 Mg Cap) 30 mg PO DAILY STEVEN Stop: 10/02/23 08:59 Last Admin: 09/04/23 07:50 Dose: 30 mg Fluticasone Propionate (Fluticasone Propionate Na Spr 16 Gm Btl) 2 sprays NA QAM STEVEN Stop: 10/02/23 08:59 Last Admin: 09/04/23 07:51 Dose: 2 sprays Heparin Sodium (Porcine) (Heparin Sod 5,000 Unit/0.5 Ml Vial) 5,000 units SQ Q8 STEVEN Stop: 10/03/23 21:59 Last Admin: 09/04/23 14:11 Dose: 5,000 units Hydromorphone HCl (Hydromorphone Inj 0.5 Mg/0.5 Ml Syr) 0.5 mg IV Q3H PRN PRN Reason: Severe Pain (Scale 7, 8, 9,10) Stop: 09/15/23 20:13 Last Admin: 09/04/23 02:24 Dose: 0.5 mg Promethazine HCl 12.5 mg/ (Sodium Chloride) 50.5 mls @ 202 mls/hr IV Q6H PRN PRN Reason: Nausea And Vomiting Stop: 10/01/23 19:30 Acetaminophen (Ofirmev) 1,000 mg in 100 mls @ 400 mls/hr IV Q8H PRN PRN Reason: pain Stop: 09/05/23 15:59 Last Infusion: 09/03/23 20:54 Dose: Infused Ceftriaxone Sodium 2,000 mg/ (Dextrose) 50 mls @ 100 mls/hr IV Q24H STEVEN; P rotocol Stop: 09/12/23 19:29 Last Infusion: 09/03/23 19:55 Dose: Infused Linaclotide (Linaclotide 145 Mcg Capsule) 290 mcg PO QAM STEVEN Stop: 10/02/23 08:59 Last Admin: 09/04/23 07:50 Dose: 290 mcg Multivitamins (Multivitamin Tab) 1 tab PO DAILY STEVEN Stop: 10/02/23 08:59 Last Admin: 09/04/23 07:50 Dose: 1 tab Oxycodone HCl (Oxycodone Hcl Ir 5 Mg Tab (Immediate Release)) 5 - 10 mg PO QID PRN PRN Reason: Pain Stop: 09/15/23 19:29 Last Admin: 09/04/23 14:13 Dose: 10 mg Pantoprazole Sodium (Pantoprazole 40 Mg Tab) 40 mg PO BID STEVEN Stop: 10/01/23 20:59 Last Admin: 09/04/23 07:50 Dose: 40 mg Polyethylene Glycol (Polyethylene (Miralax) 17 Gm Pack) 17 gm PO BID STEVEN Stop: 10/01/23 20:59 Last Admin: 09/04/23 07:50 Dose: 17 gm Tizanidine HCl (Tizanidine Hcl 4 Mg Tablet) 8 mg PO HS STEVEN Stop: 10/01/23 20:59 Last Admin: 09/03/23 21:02 Dose: 8 mg Zolpidem Tartrate (Zolpidem Tartrate 10 Mg Tab) 10 mg PO HS PRN PRN Reason: sleep Stop: 10/01/23 20:59 Last Admin: 09/02/23 20:33 Dose: 10 mg (1) Acute pancreatitis Acute pancreatitis complication: unspecified Pancreatitis type: unspecified pancreatitis type Qualified Code(s): K85.90 - Acute pancreatitis without necrosis or infection, unspecified
[2023-09-04] MEDS: WARFARIN SOD 2.5 MG TAB PO SCH (16:40)
[2023-09-05 06:44] LABS: Basophils # (auto) 0.08 K/uL (0.00-0.20); Basophils % (auto) 1.3 %; Eosinophils % (auto) 4.9 %; Hematocrit (blood only) 40.9 % (37.0-47.0); Hemoglobin 13.3 g/dl (12.0-16.0); Lymphocytes # (auto) 2.67 K/uL (1.20-3.40); Lymphocytes % (auto) 43.5 %; Mean Corpuscular Hemoglobin 28.4 pg (25.0-34.0); Mean Corpuscular Hgb Conc 32.5 g/dL (32.0-36.0); Mean Corpuscular Volume 87.4 fL (80.0-100.0); Mean Platelet Volume 9.8 fL (9.4-12.4); Monocytes # (auto) 0.84 K/uL (0.11-0.59); Monocytes % (auto) 13.7 %; Neutrophils # (auto) 2.25 K/uL (1.40-6.50); Neutrophils % (auto) 36.6 %; Platelet Count 391 K/uL (130-400); RDW Coefficient of Variation 17.5 % (11.5-14.5); RDW Standard Deviation 54.9 fL (36.4-46.3); Red Blood Count 4.68 M/uL (4.20-5.40); White Blood Count 6.14 K/ul (4.8-10.8)
[2023-09-05 07:06] LABS: Albumin Level 3.4 gm/dl (3.4-5.0); BUN Creatinine Ratio 4.3 (10-20); Bilirubin Direct 0.1 mg/dl (0-0.2); Bilirubin,Total 0.5 mg/dl (0.2-1.0); Calcium 8.8 mg/dl (8.6-10.3); Creatinine Clr Calc Pharmacy 111.3 ml/min; Est GFR (African American) 109.1 ml/min; Est GFR (Non-African American) 94.2 ml/min; Potassium 3.9 mmol/L (3.5-5.1); Total Protein 6.5 gm/dl (6.0-8.3)
[2023-09-05 07:16] LABS: INR 1.3 (0.9-1.1)
--- NOTE | 2023-09-05 14:58 | Hospitalist Progress Note ---
Date of Service September 05, 2023 Assessment & Plan (1) Acute pancreatitis: Plan: Per admitting service notes with addendum: ACUTE PANCREATITIS RECURRENT EPISODES HISTORY OF CHRONIC PANCREATITIS --AST/ALT, alk phos increasing bilirubin is slightly increased also -- MRCP ordered: 1. Uperg-nh-umbbhzp pancreatitis. 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 2. No acute peripancreatic fluid collection. 3. Chronic extensive postoperative changes of the abdomen redemonstrated as above. 4. Chronic wall thickening of the distal esophagus, which should be correlated clinically to exclude a nonspecific esophagitis. 5. Cholecystectomy with mild likely postsurgical common bile duct dilation. No choledocholithiasis. Pt treated conservatively Discussed with GI service Not recommending ERCP at this time, continue to monitor clinically and liver panel Inquired regarding possible pancreatic duct stent placement in light of chronic pancreatic duct stricture found within the tail of the pancreas, recurrent acute pancreatitis As per GI, not recommended at this point given anatomy - recommendations are for conservative management Pt off IVF and tolerating diet LFTS improving AST 241, ALT 315, ALK Phos 492 Still requiring IV pain control, possible dc tomorrow RECENT TICK BITE, LYME DISEASE Tick bite panel ordered Positive Lyme awaiting western blot Anaplasmosis, Babesia, Ehrlichia, etc. pending Continue ceftriaxone IV day #4 RECURRENT PE ON COUMADIN INR supratherapeutic on admission: 6's Patient denies bleeding symptoms. Patient finds it cumbersome to go for outpatient PT/INR lab draws. Anticoagulation clinic has not been able to reach patient as per outpatient records. Last INR check on record February 2023 Given total of 5 mg of vitamin K p.o. Lifelong anticoagulation is recommended in patient It was recommended pt switch to eliquis but she denies being able to afford medication Resumed coumadin this evening with daily INR Will need close coag clinic help on discharge history of bariatric surgery chronic pain hx GERD, stable on PPI chronic constipation on bowel regimen anxiety/mood disorder, at baseline past tobacco abuse DVT prophylaxis. resume warfarin, daily INR, encourage close f/u as outpatient for INR checks Disposition Pt tolerating low fat diet, may be able to be d/c tomorrow FULL CODE PCP: Artis Pt was seen and examined in collaboration with Dr. Robertson, please see addendum A total of 45 minutes was spent coordinating, documenting, and providing care for this patient excluding time spent in the performance of separately billed services. This included personally viewing all current laboratories and imaging studies, medication reconciliation, outpatient chart review, and discussion with specialists. Admission and Anticipated Discharge Date Admission Date: September 01, 2023 Supervising Physician Co-Signing Physician Notes Patient seen and examined independently. She continues to report pain in epigastric region after eating food. The pain frequency and severity has decreased compared to yesterday. LFTs are trending down. Continues to be hospitalized for pain control. Might need pain management involvement if pain continues to be severe. I have reviewed the advanced practitioner's documentation, and I agree with, and take responsibility for the plan of care I spent a total of 20 minutes coordinating, documenting, and providing care for this patient excluding time spent in the performance of separately billed services. All of the aforementioned completed while collaborating with the assigned advanced practitioner for a full treatment plan Subjective Patient was seen and examined in 386 bed 1 for follow-up of pancreatitis. Pain has improved slightly overnight and currently rates it a 5/10 after oxycodone this morning. Tolerating some clear liquids. Denies any nausea or vomiting. Urinating without issue, passing flatus. No fever, chills, lightheadedness, chest pain, shortness of breath. Review of Systems Review of Systems: At least ten systems reviewed and negative except as noted in the HPI. Physical Exam Physical Exam: Gen: WD/WN, NAD, A&O x3, resting in bed comfortably HEENT: Normocephalic, atraumatic, conjunctivae moist, sclerae anicteric, mucous membranes moist Lung: Clear to Auscultation bilaterally, no wheezes/rales/rhonchi Heart: Regular rate, regular rhythm, no murmurs, rubs, or gallops Abdomen: Soft, TTP left upper quadrant, no guarding, ND, +BS x 4 Extremities: No edema Skin: Warm, no rash Results & Data Results & Data Vital Signs (Past 12 Hours) Vital Signs Temp Pulse Resp BP Pulse Ox O2 Del Method 09/05/23 07:39 36.8 C 63 16 125/86 93 Room Air Laboratory Results Short CBC 09/05/23 Range/Units 06:19 WBC 6.14 (4.8-10.8) K/ul Hgb 13.3 (12.0-16.0) g/dl Hct 40.9 (37.0-47.0) % Plt Count 391 (130-400) K/uL BMP 09/05/23 06:19 Sodium 139 Potassium 3.9 Chloride 103 Carbon Dioxide 32 BUN 3 L Creatinine 0.70 Glucose 92 Calcium 8.8 Liver Function 09/05/23 Range/Units 06:19 Total Bilirubin 0.5 (0.2-1.0) mg/dl Direct Bilirubin 0.1 (0-0.2) mg/dl AST 121 H (13-39) U/L ALT 222 H (7-52) U/L Alkaline Phosphatase 436 H (34-104) U/L Albumin 3.4 (3.4-5.0) gm/dl Diagnostic Findings Abdomen/Pelvis CT 09/01/23 17:25 CT abd pelvis wo con CLINICAL HISTORY: L flank pain TECHNIQUE: Helical axial images of the abdomen and pelvis were obtained. Automated dose lowering techniques and/or adjustment according to patient size were utilized for this exam. This exam was performed without intravenous contrast. CT DOSE: 1576.89 mGy.cm COMPARISON: Comparison is made to CT abdomen pelvis 12/01/2022 FINDINGS: Lower chest: Atelectasis versus scarring is bilateral lung bases. Liver: Unremarkable. No focal lesions are seen. Left hepatectomy is seen. Gallbladder and biliary tree: No calcified gallstones. Normal caliber wall. No intra- or extrahepatic biliary ductal dilation. Pancreas: Thickening of the distal pancreas with calcifications noted. Surrounding soft tissue stranding is seen most prominent posteriorly. Spleen: Patient is status post splenectomy. Adrenals: Unremarkable. Kidneys and ureters: Unremarkable. Bladder: Unremarkable. Reproductive organs: Unremarkable. Bowel: The appendix is normal. Patient is status post gastric bypass surgery. Lymph nodes Retroperitoneal: Subcentimeter lymph nodes are noted. Pelvic: Unremarkable. Mesenteric: Unremarkable. Peritoneum: Normal. Vessels: Unremarkable. Abdominal wall: Unremarkable. Bones: Degenerative changes in the visualized spine. IMPRESSION: Fat stranding about the pancreas may represent acute pancreatitis. No acute peripancreatic fluid collections are seen. Evaluation for necrosis is limited by noncontrast technique. Additional findings as above. ACT 112: Negative or not required by law. Electronically signed by: Bereket Rollins M.D. 09/01/2023 6:28 PM Cholangiopancreatography MRI 09/02/23 09:57 MR MRCP HISTORY: 58 years-old Female acute panc, hx rygb and ccy acute nausea with generalized abdominal pain. History of acute pancreatitis. COMPARISON: CT abdomen and pelvis 09/01/2023, MRCP 06/28/2015. TECHNIQUE: MRCP was obtained without the use of IV contrast. FINDINGS: Study is mildly motion degraded. Right hemidiaphragmatic elevation with probable bibasilar atelectasis redemonstrated. Postoperative changes of the bowel. Moderate fecal retention. Splenectomy. Chronic postoperative changes of the abdominal left upper quadrant. 1.2 cm right adrenal gland adenoma redemonstrated. A normal left adrenal gland is not identified. Chronic nodular soft tissue thickening anterior to the superior pole left kidney redemonstrated. Chronic postoperative changes of the liver. 1.8 cm slightly T2 hyperintense lesion within the right hepatic lobe is unchanged dating back to at least 2015 suggestive of a benign etiology. Cholecystectomy. No hydronephrosis. Aorta and IVC are unremarkable. No lymphadenopathy. Wall thickening of the distal esophagus again noted. Findings of odmrd-ma-dbpgwbt pancreatitis redemonstrated. There are areas of cystic dilation involving the pancreatic duct within the tail which appears similar, however, has progressed from the 2016 study with probable numerous small sidebranch IPMN's. There is an apparent chronic stricture of the pancreatic duct within the tail on image 146 of series 701, which was also present on the 2016 study. This is within the region of the pancreatic calcifications seen on the CT study. No acute peripancreatic fluid collections. Common bile duct measures 7 mm. No biliary stricture or choledocholithiasis. Chronic appearance of the left hepatic lobe biliary tree. Subcentimeter gastroesophageal lymph nodes are again seen. IMPRESSION: 1. Xpgqv-gi-kvfoowz pancreatitis. 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 2. No acute peripancreatic fluid collection. 3. Chronic extensive postoperative changes of the abdomen redemonstrated as above. 4. Chronic wall thickening of the distal esophagus, which should be correlated clinically to exclude a nonspecific esophagitis. 5. Cholecystectomy with mild likely postsurgical common bile duct dilation. No choledocholithiasis. ACT 112: Negative or not required by law. The above report was generated using voice recognition software. It may contain grammatical, syntax or spelling errors. Dictated: 09/03/2023 7:38 AM Transcribed: 09/03/2023 9:31 AM Joe [id number] [facility] Electronically signed by: Ish Jarrett M.D. 09/03/2023 10:09 AM Chest X-Ray 09/02/23 21:35 XR chest 1V portable CLINICAL HISTORY: low o2 COMPARISON STUDY: Chest CT November 06, 2019. Chest radiograph May 16, 2022. FINDINGS: Postoperative findings within the spine are incidentally noted. Elevation of the right hemidiaphragm is unchanged. Linear bibasilar densities favor atelectasis. There is no pneumothorax or pleural effusion. Cardiomediastinal silhouette is unremarkable. There is pulmonary vascular congestion without overt pulmonary edema. IMPRESSION: 1. Pulmonary vascular congestion without overt pulmonary edema. 2. Stable elevation of the right hemidiaphragm. Linear bibasilar densities consistent with atelectasis. ACT 112: Negative or not required by law. Electronically signed by: John Parham M.D. 09/03/2023 7:38 AM (1) Acute pancreatitis Acute pancreatitis complication: unspecified Pancreatitis type: unspecified pancreatitis type Qualified Code(s): K85.90 - Acute pancreatitis without necrosis or infection, unspecified
[2023-09-05] MEDS: WARFARIN SOD 5 MG TAB PO SCH (16:29)
[2023-09-06 07:22] LABS: Basophils # (auto) 0.07 K/uL (0.00-0.20); Eosinophils # (auto) 0.23 K/uL (0.00-0.50); Eosinophils % (auto) 3.4 %; Hematocrit (blood only) 41.7 % (37.0-47.0); Immature Granulocytes # (auto) 0.02 K/uL (0.01-0.20); Immature Granulocytes % (auto) 0.3 %; Lymphocytes # (auto) 2.47 K/uL (1.20-3.40); Lymphocytes % (auto) 36.8 %; Mean Corpuscular Hemoglobin 29.2 pg (25.0-34.0); Mean Corpuscular Hgb Conc 33.6 g/dL (32.0-36.0); Mean Corpuscular Volume 87.1 fL (80.0-100.0); Mean Platelet Volume 10.4 fL (9.4-12.4); Monocytes # (auto) 1.04 K/uL (0.11-0.59); Monocytes % (auto) 15.5 %; Neutrophils # (auto) 2.88 K/uL (1.40-6.50); Platelet Count 419 K/uL (130-400); RDW Coefficient of Variation 17.5 % (11.5-14.5); RDW Standard Deviation 54.3 fL (36.4-46.3); Red Blood Count 4.79 M/uL (4.20-5.40); White Blood Count 6.71 K/ul (4.8-10.8)
[2023-09-06 07:51] LABS: INR 1.4 (0.9-1.1); Prothrombin Time 15.2 Seconds (9.0-12.0)
[2023-09-06 07:58] LABS: Albumin Level 3.4 gm/dl (3.4-5.0); BUN Creatinine Ratio 9.6 (10-20); Bilirubin Direct 0.1 mg/dl (0-0.2); Bilirubin,Total 0.4 mg/dl (0.2-1.0); Creatinine Clr Calc Pharmacy 106.8 ml/min; Est GFR (African American) 103.8 ml/min; Est GFR (Non-African American) 89.5 ml/min; Potassium 3.9 mmol/L (3.5-5.1); Total Protein 6.5 gm/dl (6.0-8.3)
[2023-09-06] MEDS: PROMETHAZINE HCL 12.5 MG in SODIUM CHLORIDE 0.9% 50 ML IV PRN (10:10)
[2023-09-06] MEDS: ACETAMINOPHEN 500 MG TAB PO PRN (10:29)
--- NOTE | 2023-09-06 11:16 | Gastroenterology Progress Note ---
Date of Service September 06, 2023 Assessment & Plan (1) Acute pancreatitis: Plan 58 year old female with history of RYGB in 2013, complicated by previous leaks requiring revision, narrowed gastrojejunostomy w previous series of dilations, s/p CCY, pancreatitis admitted with abd pain, imaging concerning for acute pancreatitis and elevated LFTs MRCP reviewed no indiction for acute biliary procedure. Her LFTs have been downtrending. GI was asked to re-evaluate today as she has had some abd pain which was worse after PO intake this AM KUB Antiemetics PRN Clears for lunch Smaller amount of PO intake If nausea/pain improves and KUB is unremarkable may return to low residue, low fat diet for dinner Trend LFTs Thank you for allowing us to participate in the care of this patient. Please call with any acute changes, questions or concerns. Please see addendum below with additional recommendation from my supervising physician. Admission and Anticipated Discharge Date Admission Date: September 01, 2023 Supervising Physician Co-Signing Physician Notes Agree with pe and plan as documented. Agree with further plan of care as documented. Subjective GI was asked to re-evaluate. Ongoing abd pain. This worsened after breakfast. She feels like she could have ate too much too quickly. She had a slice of toast, scrambled eggs and banana. Had some nausea. No vomiting. Moved a stool this AM, mix of solid/liquid LFTs are downtrending. Review of Systems Review of Systems: All systems reviewed & are unremarkable except as noted in HPI & below Physical Exam Constitutional: WD/WN, vitals as above Respiratory: normal respiratory effort Cardiovascular: Rate/Rhythm: regular rate and regular rhythm Gastrointestinal (Abdomen): Percussion/Palpation: + abdomen tender and abdomen soft; no guarding and abdomen not rigid Skin: no rashes, warm and dry Results & Data Vital Signs (Past 12 Hours) Vital Signs Temp Pulse Resp BP Pulse Ox O2 Del Method 09/06/23 07:16 36.5 C 63 16 132/85 93 Room Air Laboratory Results 09/06/23 09/06/23 Range/Units 06:38 06:20 WBC 6.71 (4.8-10.8) K/ul RBC 4.79 (4.20-5.40) M/uL Hgb 14.0 (12.0-16.0) g/dl Hct 41.7 (37.0-47.0) % MCV 87.1 (80.0-100.0) fL MCH 29.2 (25.0-34.0) pg MCHC 33.6 (32.0-36.0) g/dL RDW Std Deviation 54.3 H (36.4-46.3) fL RDW Coeff of Mukul 17.5 H (11.5-14.5) % Plt Count 419 H (130-400) K/uL MPV 10.4 (9.4-12.4) fL Immature Gran % (Auto) 0.3 % Neut % (Auto) 43.0 % Lymph % (Auto) 36.8 % [place] % (Auto) 15.5 % Eos % (Auto) 3.4 % Baso % (Auto) 1.0 % Neut # (Auto) 2.88 (1.40-6.50) K/uL Lymph # (Auto) 2.47 (1.20-3.40) K/uL Gladwin # (Auto) 1.04 H (0.11-0.59) K/uL Eos # (Auto) 0.23 (0.00-0.50) K/uL Baso # (Auto) 0.07 (0.00-0.20) K/uL Immature Gran # (Auto) 0.02 (0.01-0.20) K/uL PT 15.2 H (9.0-12.0) Seconds INR 1.4 H (0.9-1.1) Sodium 140 (136-145) mmol/L Potassium 3.9 (3.5-5.1) mmol/L Chloride 105 (98-107) mmol/L Carbon Dioxide 30 (21-32) mmol/L Anion Gap 5 (3-11) BUN 7 (6-23) mg/dl Creatinine 0.73 (0.6-1.2) mg/dl Est Cr Clr Drug Dosing 106.8 ml/min Est GFR ( Amer) 103.8 ml/min Est GFR (Non-Af Amer) 89.5 ml/min BUN/Creatinine Ratio 9.6 L (10-20) Glucose 83 (70-99(Fasting)) mg/dl Calcium 9.0 (8.6-10.3) mg/dl Total Bilirubin 0.4 (0.2-1.0) mg/dl Direct Bilirubin 0.1 (0-0.2) mg/dl AST 66 H (13-39) U/L ALT 157 H (7-52) U/L Alkaline Phosphatase 367 H (34-104) U/L Total Protein 6.5 (6.0-8.3) gm/dl Albumin 3.4 (3.4-5.0) gm/dl (1) Acute pancreatitis Acute pancreatitis complication: unspecified Pancreatitis type: unspecified pancreatitis type Qualified Code(s): K85.90 - Acute pancreatitis without necrosis or infection, unspecified
--- NOTE | 2023-09-06 11:57 | XRay Report ---
KUB HISTORY: Acute onset abdominal pain abd pain, pancreatitis, r/o ileus COMPARISON: 09/01/2023 FINDINGS: Upper abdominal surgical suture material again noted. Air-filled loops of large and small b owel with nonobstructive bowel gas pattern. Cholecystectomy with right hemidiaphragmatic elevation. No renal calculi. No ureteral calculi. No pneumoperitoneum or pneumatosis. Degenerative changes of th e spine, pelvis and hips. No fracture. IMPRESSION: Air-filled loops of large and small bowel redemonstrated with nonobstructive bowel gas pattern. ACT 112: Negative or not required by law. The above report was generated using voice recognition software. It may contain grammatical, syntax o r spelling errors. Electronically signed by: Ish Jarrett M.D. 09/06/2023 11:56 AM
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
--- NOTE | 2023-09-06 15:18 | Hospitalist Progress Note ---
Date of Service September 06, 2023 Assessment & Plan (1) Acute pancreatitis: Plan: Per admitting service notes with addendum: ACUTE PANCREATITIS RECURRENT EPISODES HISTORY OF CHRONIC PANCREATITIS --AST/ALT, alk phos increasing bilirubin is slightly increased also -- MRCP ordered: 1. Fvkzn-yi-ekyvyca pancreatitis. 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 2. No acute peripancreatic fluid collection. 3. Chronic extensive postoperative changes of the abdomen redemonstrated as above. 4. Chronic wall thickening of the distal esophagus, which should be correlated clinically to exclude a nonspecific esophagitis. 5. Cholecystectomy with mild likely postsurgical common bile duct dilation. No choledocholithiasis. Pt treated conservatively Discussed with GI service Not recommending ERCP at this time, continue to monitor clinically and liver panel Inquired regarding possible pancreatic duct stent placement in light of chronic pancreatic duct stricture found within the tail of the pancreas, recurrent acute pancreatitis As per GI, not recommended at this point given anatomy - recommendations are for conservative management Pt off IVF and tolerating diet LFTS continue downtrending Asked GI to re-evaluate - recommended KUB which re-demonstrated air filled loops of bowel with nonobstructive gas pattern, smaller amount of PO intake Revert to clears for lunch - If nausea/pain improves and KUB is unremarkable may return to low residue, low fat diet for dinner Evaluated by pain mgmt today based on uncontrolled pain this morning. She has improved on clears, they recommend continuing oxycodone 10 mg every 6 hours if needed RECENT TICK BITE, LYME DISEASE Tick bite panel ordered Positive Lyme awaiting western blot Anaplasmosis, Babesia, Ehrlichia, etc. pending Transition to PO Doxycycline, day #5 of abx RECURRENT PE ON COUMADIN INR supratherapeutic on admission: 6's Patient denies bleeding symptoms. Patient finds it cumbersome to go for outpatient PT/INR lab draws. Anticoagulation clinic has not been able to reach patient as per outpatient records. Last INR check on record February 2023 Given total of 5 mg of vitamin K p.o. Lifelong anticoagulation is recommended in patient It was recommended pt switch to eliquis but she denies being able to afford medication Resumed coumadin this evening with daily INR Will need close coag clinic help on discharge history of bariatric surgery chronic pain hx GERD, stable on PPI chronic constipation on bowel regimen anxiety/mood disorder, at baseline past tobacco abuse DVT prophylaxis. resume warfarin, daily INR, encourage close f/u as outpatient for INR checks Disposition Pt tolerating low fat diet, may be able to be d/c tomorrow FULL CODE PCP: Artis Pt was seen and examined in collaboration with Dr. Robertson, please see addendum A total of 45 minutes was spent coordinating, documenting, and providing care for this patient excluding time spent in the performance of separately billed services. This included personally viewing all current laboratories and imaging studies, medication reconciliation, outpatient chart review, and discussion with specialists. Admission and Anticipated Discharge Date Admission Date: September 01, 2023 Supervising Physician Co-Signing Physician Notes Patient seen and examined independently. Discussed with over provider. Patient continues to report abdominal pain after food intake. Gastroenterology was requested to reevaluate the patient again. Pain management was also consulted. Continue pain control, low-fat diet, monitor CMP Possible DC in a.m. I have reviewed the advanced practitioner's documentation, and I agree with, and take responsibility for the plan of care I spent a total of 15 minutes coordinating, documenting, and providing care for this patient excluding time spent in the performance of separately billed services. All of the aforementioned completed while collaborating with the assigned advanced practitioner for a full treatment plan Subjective Seen and evaluated in 386 in follow-up for recurrent pancreatitis. Patient f eels worse this morning after eating egg whites, half a piece of toast and a banana for breakfast. No N/V, just worsening pain in left midabdomen. Had a loose bowel movement this morning. No F/C, lightheadedness, CP, SOB, dysuria, constipation. Review of Systems Review of Systems: At least ten systems reviewed and negative except as noted in the HPI. Physical Exam Physical Exam: Gen: WD/WN, NAD, A&O x3, resting in bed comfortably HEENT: Normocephalic, atraumatic, conjunctivae moist, sclerae anicteric, mucous membranes moist Lung: Clear to Auscultation bilaterally, no wheezes/rales/rhonchi Heart: Regular rate, regular rhythm, no murmurs, rubs, or gallops Abdomen: Soft, TTP left mid-abdomen, no guarding, ND, +BS x 4 Extremities: No edema Skin: Warm, no rash Results & Data Results & Data Vital Signs (Past 12 Hours) Vital Signs Temp Pulse Pulse Resp BP Pulse Ox O2 Del Method 09/06/23 12:14 36.7 C 68 12 133/83 94 Room Air 09/06/23 07:16 36.5 C 63 16 132/85 93 Room Air Laboratory Results Short CBC 09/06/23 Range/Units 06:38 WBC 6.71 (4.8-10.8) K/ul Hgb 14.0 (12.0-16.0) g/dl Hct 41.7 (37.0-47.0) % Plt Count 419 H (130-400) K/uL BMP 09/06/23 06:38 Sodium 140 Potassium 3.9 Chloride 105 Carbon Dioxide 30 BUN 7 Creatinine 0.73 Glucose 83 Calcium 9.0 Liver Function 09/06/23 Range/Units 06:38 Total Bilirubin 0.4 (0.2-1.0) mg/dl Direct Bilirubin 0.1 (0-0.2) mg/dl AST 66 H (13-39) U/L ALT 157 H (7-52) U/L Alkaline Phosphatase 367 H (34-104) U/L Albumin 3.4 (3.4-5.0) gm/dl Diagnostic Findings Abdomen/Pelvis CT 09/01/23 17:25 CT abd pelvis wo con CLINICAL HISTORY: L flank pain TECHNIQUE: Helical axial images of the abdomen and pelvis were obtained. Automated dose lowering techniques and/or adjustment according to patient size were utilized for this exam. This exam was performed without intravenous contrast. CT DOSE: 1576.89 mGy.cm COMPARISON: Comparison is made to CT abdomen pelvis 12/01/2022 FINDINGS: Lower chest: Atelectasis versus scarring is bilateral lung bases. Liver: Unremarkable. No focal lesions are seen. Left hepatectomy is seen. Gallbladder and biliary tree: No calcified gallstones. Normal caliber wall. No intra- or extrahepatic biliary ductal dilation. Pancreas: Thickening of the distal pancreas with calcifications noted. Surrounding soft tissue stranding is seen most prominent posteriorly. Spleen: Patient is status post splenectomy. Adrenals: Unremarkable. Kidneys and ureters: Unremarkable. Bladder: Unremarkable. Reproductive organs: Unremarkable. Bowel: The appendix is normal. Patient is status post gastric bypass surgery. Lymph nodes Retroperitoneal: Subcentimeter lymph nodes are noted. Pelvic: Unremarkable. Mesenteric: Unremarkable. Peritoneum: Normal. Vessels: Unremarkable. Abdominal wall: Unremarkable. Bones: Degenerative changes in the visualized spine. IMPRESSION: Fat stranding about the pancreas may represent acute pancreatitis. No acute peripancreatic fluid collections are seen. Evaluation for necrosis is limited by noncontrast technique. Additional findings as above. ACT 112: Negative or not required by law. Electronically signed by: Bereket Rollins M.D. 09/01/2023 6:28 PM Cholangiopancreatography MRI 09/02/23 09:57 MR MRCP HISTORY: 58 years-old Female acute panc, hx rygb and ccy acute nausea with generalized abdominal pain. History of acute pancreatitis. COMPARISON: CT abdomen and pelvis 09/01/2023, MRCP 06/28/2015. TECHNIQUE: MRCP was obtained without the use of IV contrast. FINDINGS: Study is mildly motion degraded. Right hemidiaphragmatic elevation with probable bibasilar atelectasis redemonstrated. Postoperative changes of the bowel. Moderate fecal retention. Splenectomy. Chronic postoperative changes of the abdominal left upper quadrant. 1.2 cm right adrenal gland adenoma redemonstrated. A normal left adrenal gland is not identified. Chronic nodular soft tissue thickening anterior to the superior pole left kidney redemonstrated. Chronic postoperative changes of the liver. 1.8 cm slightly T2 hyperintense lesion within the right hepatic lobe is unchanged dating back to at least 2015 suggestive of a benign etiology. Cholecystectomy. No hydronephrosis. Aorta and IVC are unremarkable. No lymphadenopathy. Wall thickening of the distal esophagus again noted. Findings of bxrii-oj-etafyou pancreatitis redemonstrated. There are areas of cystic dilation involving the pancreatic duct within the tail which appears similar, however, has progressed from the 2016 study with probable numerous small sidebranch IPMN's. There is an apparent chronic stricture of the pancreatic duct within the tail on image 146 of series 701, which was also present on the 2016 study. This is within the region of the pancreatic calcifications seen on the CT study. No acute peripancreatic fluid collections. Common bile duct measures 7 mm. No biliary stricture or choledocholithiasis. Chronic appearance of the left hepatic lobe biliary tree. Subcentimeter gastroesophageal lymph nodes are again seen. IMPRESSION: 1. Biqff-vl-gbpixkt pancreatitis. 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 2. No acute peripancreatic fluid collection. 3. Chronic extensive postoperative changes of the abdomen redemonstrated as above. 4. Chronic wall thickening of the distal esophagus, which should be correlated clinically to exclude a nonspecific esophagitis. 5. Cholecystectomy with mild likely postsurgical common bile duct dilation. No choledocholithiasis. ACT 112: Negative or not required by law. The above report was generated using voice recognition software. It may contain grammatical, syntax or spelling errors. Dictated: 09/03/2023 7:38 AM Transcribed: 09/03/2023 9:31 AM Joe [id number] [email or web address] Electronically signed by: Ish Jarrett M.D. 09/03/2023 10:09 AM Chest X-Ray 09/02/23 21:35 XR chest 1V portable CLINICAL HISTORY: low o2 COMPARISON STUDY: Chest CT November 06, 2019. Chest radiograph May 16, 2022. FINDINGS: Postoperative findings within the spine are incidentally noted. Elevation of the right hemidiaphragm is unchanged. Linear bibasilar densities favor atelectasis. There is no pneumothorax or pleural effusion. Cardiomediastinal silhouette is unremarkable. There is pulmonary vascular congestion without overt pulmonary edema. IMPRESSION: 1. Pulmonary vascular congestion without overt pulmonary edema. 2. Stable elevation of the right hemidiaphragm. Linear bibasilar densities consistent with atelectasis. ACT 112: Negative or not required by law. Electronically signed by: John Parham M.D. 09/03/2023 7:38 AM KUB X-Ray 09/06/23 11:23 KUB HISTORY: Acute onset abdominal pain abd pain, pancreatitis, r/o ileus COMPARISON: 09/01/2023 FINDINGS: Upper abdominal surgical suture material again noted. Air-filled loops of large and small bowel with nonobstructive bowel gas pattern. Cholecystectomy with right hemidiaphragmatic elevation. No renal calculi. No ureteral calculi. No pneumoperitoneum or pneumatosis. Degenerative changes of the spine, pelvis and hips. No fracture. IMPRESSION: Air-filled loops of large and small bowel redemonstrated with nonobstructive bowel gas pattern. ACT 112: Negative or not required by law. The above report was generated using voice recognition software. It may contain grammatical, syntax or spelling errors. Electronically signed by: Ish Jarrett M.D. 09/06/2023 11:56 AM (1) Acute pancreatitis Acute pancreatitis complication: unspecified Pancreatitis type: unspecified pancreatitis type Qualified Code(s): K85.90 - Acute pancreatitis without necrosis or infection, unspecified
[2023-09-06] MEDS: DOXYCYCLINE HYCLATE 100 MG CAP PO SCH (19:44)
[2023-09-07 06:22] LABS: Basophils # (auto) 0.08 K/uL (0.00-0.20); Basophils % (auto) 1.2 %; Eosinophils # (auto) 0.27 K/uL (0.00-0.50); Eosinophils % (auto) 3.9 %; Hematocrit (blood only) 39.5 % (37.0-47.0); Hemoglobin 13.2 g/dl (12.0-16.0); Immature Granulocytes # (auto) 0.03 K/uL (0.01-0.20); Immature Granulocytes % (auto) 0.4 %; Lymphocytes # (auto) 2.82 K/uL (1.20-3.40); Lymphocytes % (auto) 40.8 %; Mean Corpuscular Hemoglobin 29.1 pg (25.0-34.0); Mean Corpuscular Hgb Conc 33.4 g/dL (32.0-36.0); Mean Corpuscular Volume 87.2 fL (80.0-100.0); Mean Platelet Volume 9.8 fL (9.4-12.4); Monocytes # (auto) 1.08 K/uL (0.11-0.59); Monocytes % (auto) 15.6 %; Neutrophils # (auto) 2.64 K/uL (1.40-6.50); Neutrophils % (auto) 38.1 %; Platelet Count 390 K/uL (130-400); RDW Coefficient of Variation 17.6 % (11.5-14.5); RDW Standard Deviation 54.5 fL (36.4-46.3); Red Blood Count 4.53 M/uL (4.20-5.40); White Blood Count 6.92 K/ul (4.8-10.8)
[2023-09-07 06:37] LABS: Albumin Level 3.4 gm/dl (3.4-5.0); BUN Creatinine Ratio 10.5 (10-20); Bilirubin Direct 0.1 mg/dl (0-0.2); Bilirubin,Total 0.4 mg/dl (0.2-1.0); Calcium 8.7 mg/dl (8.6-10.3); Creatinine Clr Calc Pharmacy 102.5 ml/min; Est GFR (African American) 98.8 ml/min; Est GFR (Non-African American) 85.3 ml/min; Potassium 4.1 mmol/L (3.5-5.1); Total Protein 6.4 gm/dl (6.0-8.3)
[2023-09-07 07:30] LABS: INR 1.6 (0.9-1.1); Prothrombin Time 17.1 Seconds (9.0-12.0)
[2023-09-07] MEDS: oxyCODONE HCL IR 5 MG TAB (IMMEDIATE RELEASE) PO PRN (09:08)
--- NOTE | 2023-09-07 14:24 | Discharge Summary ---
Date of Service September 07, 2023 Admission HPI Per Admitting Provider History obtained from patient and records. Medical history significant for recurrent PE on Coumadin, history of bariatric surgery, chronic pain, GERD, chronic pancreatitis, chronic constipation, anxiety/mood disorder, history of MRSA, history of C. difficile, past tobacco abuse. Last confinement April 2022 for abdominal pain with transaminitis. No clear etiology for transaminitis as per GI note. Patient woke up with sharp epigastric pain going to her flank yesterday. No black, no bloody stools, no fever, no chills. Intermittent symptoms associated with nausea, emesis. No headache. No chest pain, no SOB. Denies recent fatty food/EtOH intake. Later yesterday patient also noted a tick on her abdomen. Tick not present the day before. No rash noted. Patient consulted ER for worsening abdominal/flank pain. Medical History as above Surgical History : Spine surgery, ex lap, gastric revision, splenectomy, cholecystectomy, partial gastrectomy, ankle surgery, ABISAI, liver biopsy Family History : Colon cancer, DM, hemochromatosis Personal/Social history : Past tobacco abuse, rare EtOH intake, disabled Admission Exam Per Admitting Provider GENERAL: Slightly uncomfortable, pleasant, morbidly obese, no respiratory distress SKIN: Normal color, warm HEENT: [place] palpebral conjunctivae, no ptosis, dry buccal mucosa NECK : Supple, no tenderness CHEST : CTA, no tenderness HEART : RRR, no obvious murmurs ABDOMEN: Some distention, epigastric tenderness EXTREMITIES : Minimal, no LE LE swelling tenderness, no other conspicuous deformities noted NEUROLOGIC : Coherent, no facial asymmetry, no other gross focality Principal Diagnosis Acute on chronic pancreatitis Possible Lyme disease Discharge Exam Constitutional: WD/WN, vitals as above, NAD, sitting up in bed, pleasant, conv ersing easily Respiratory: normal respiratory effort, lungs clear to auscultation, no wheeze, rales, rhonchi. Normal insp/exp effort, no accessory muscle use Cardiovascular: RRR, no murmur, no edema Vessels: no JVD or carotid bruit Chest: normal inspection of chest Abdomen: normal bowel sounds, soft, nontender, no hepatosplenomegaly Musculoskeletal: no cyanosis or clubbing, extremities motor strength 5/5 Skin: no rashes, warm and dry normal turgor Neurologic: PERRL, EOMI, accommodation nl, no face palsy, no dysarthria CN's II- XI intact bilaterally and moves all extremities Psychiatric: A+Ox3, euthymic affect Discharge Data Allergies Allergy/AdvReac Type Severity Reaction Status Date / Time Sulfa (Sulfonamide Allergy Intermediate Hives Verified 09/01/23 20:13 Antibiotics) latex Allergy Mild Rash Verified 09/01/23 20:13 ciprofloxacin [From Cipro] AdvReac Intermediate Vomiting Verified 09/01/23 20:13 morphine AdvReac Intermediate Hypotension Verified 09/01/23 20:13 Consultations 09/01/23 18:34 ED Decision to Admit Stat 09/01/23 21:26 Consult Gastroenterology Routine 09/06/23 11:09 Consult Pain Management Routine Ordered Studies 09/01/23 17:25 CT abd pelvis wo con Stat 09/02/23 09:57 MR MRCP Routine Hospital Course (1) Acute pancreatitis: ACUTE PANCREATITIS RECURRENT EPISODES HISTORY OF CHRONIC PANCREATITIS Patient was admitted to the hospital due to abdominal pain MRCP was done which showed the following 1. Dwqpv-dc-odfbtqf pancreatitis. 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 2. No acute peripancreatic fluid collection. 3. Chronic extensive postoperative changes of the abdomen redemonstrated as above. 4. Chronic wall thickening of the distal esophagus, which should be correlated clinically to exclude a nonspecific esophagitis. 5. Cholecystectomy with mild likely postsurgical common bile duct dilation. No choledocholithiasis. Evaluated by GI; they did not recommend ERCP at the moment. Patient was treated with analgesics, IV fluids, advancement of diet. Due to persistent pain, pain management was also consulted. Patient's LFTs trended up initially; down trended over the course of the hospitalization. At discharge, patient's pain was managed by oral medication. Patient to follow-up with primary care doctor. She will need follow-up with GI and possible pain management referral if she continues to have pain for her chronic pancreatitis RECENT TICK BITE, LYME DISEASE Lyme screening positive At discharge, anaplasmosis, Babesia, Ehrlichia, Q fever still pending. Follow- up with PCP Discharged home on doxycycline RECURRENT PE ON COUMADIN INR supratherapeutic on admission: 6's Patient denies bleeding symptoms. Poor follow-up with Coumadin clinic Patient was given vitamin K for reversal. Eliquis was prescribed to check on lewis; it was too expensive for the patient. Coumadin was restarted. Patient was recommended for close follow-up with Coumadin clinic. She verbalized understanding. Please note the above document was generated using voice recognition software. It may contain grammatical, syntax or spelling errors. Any formal questions or concerns about the content, text or information contained within the body of this dictation should be directly addressed to the provider for clarification Total Time Total Time Spent Total Time Spent (In Minutes): 45 Discharge Plan Discharge Items Patient Disposition: Home - Self-Care Reason For Visit: PANCREATITIS Discharge Diagnosis: Acute on chronic pancreatitis Activity: Resume your previous activity Non-emergency contact: Primary Care Provider Call non-emergency contact if: you have any medication questions and your symptoms worsen Follow-up/Referrals: Jessee Wisdom MD [Primary Care Provider] - (Date & Time 09/10/2023 2:00 PM Provider Jessee Wisdom MD [facility] ) Diet: Regular and Low Fat Addtl Attending Provider Instructions: You were admitted to the hospital due to acute on chronic pancreatitis. You are evaluated by gastroenterology during the hospitalization; they did not recommend further workup. Please follow a low-fat diet. Fatty food can exacerbate pain with chronic pancreatitis. If you have severe pain; you take can take oxycodone that is prescribed for you. Lyme screening test was positive during the hospitalization; you are prescribed doxycycline for 6 more days to complete the treatment course. Test for Q fever, Rickettsia, typhus, Anaplasma and Babesia are still pending. Please follow-up with your primary care doctor for results. Please follow-up with anticoagulation clinic for adjustment of Coumadin dose. Pending Studies at Discharge: Yes Studies:: Q fever, Rickettsia, typhus, Anaplasma and Babesia Stand-Alone Forms: My [employer], Pain - Opioid Pain Management, Smoking Cessation Medications and DC Order Prescriptions: New doxycycline hyclate 100 mg Capsule 100 mg PO BID 6 Days Qty: 12 0RF oxycodone 5 mg Tablet 5 - 10 mg PO Q6H PRN (Reason: pain) Qty: 15 0RF Continued multivitamin Tablet 1 tab PO DAILY polyethylene glycol 3350 [Miralax] 17 gram Powder In Packet 17 g PO BID tizanidine 4 mg tablet 8 - 12 mg PO HS amitriptyline 50 mg tablet 50 mg PO HS acetaminophen [Tylenol Extra Strength] 500 mg Tablet 500 mg PO BID PRN (Reason: Pain) metoclopramide HCl 5 mg tablet 5 - 10 mg PO DIRECTED Rx Instructions: Take up to 3days week. buspirone 10 mg tablet 10 mg PO AMPM warfarin 5 mg tablet 5 mg PO [id number] Rx Instructions: Take sat, tues, thur, sun warfarin 5 mg tablet 2.5 mg PO MOWEFR omeprazole 20 mg capsule,delayed release(DR/EC) 20 mg PO BID furosemide 20 mg tablet 20 mg PO QAM ondansetron 4 mg tablet,disintegrating 4 mg translingual Q8 PRN (Reason: Nausea) fluticasone propionate 50 mcg/actuation spray,suspension 2 spray INTRANASAL QAM vitamin A-vitamin C-vit E-min Tablet 1 tab PO DAILY eletriptan [Relpax] 40 mg Tablet 0 mg PO .COMPLEX Rx Instructions: take1/2 to 1 tab at onset of headache; if no relief, may repeat 1 tab after at least 2 hrs; max = 2 tabs/24 hrs bupropion HCl 300 mg tablet extended release 24 hr 300 mg PO QAM duloxetine 30 mg capsule,delayed release(DR/EC) 30 mg PO DAILY zolpidem 12.5 mg tablet,ext release multiphase 12.5 mg PO HS calcium carbonate-vitamin D3 [Calcium 600 + D(3)] 600 mg-10 mcg (400 unit) Tablet 1 tab PO BID Linzess 290 mcg capsule 290 mcg PO QAM Emgality Pen 120 mg/mL pen injector 240 mg SUBCUT .MONTH Discharge Orders: Discharge Order (Routine); Ordered 09/07/23 Ordered By: Timmy Lynch/Other Patient Handouts: What to Know When TakingWarfarin, Low-Fat Cooking Tips, Understanding Pancreatitis Admission Data Admit Date/Time: 09/01/23 20:12 Attending Provider: Timmy Robertson Admit Provider: Joe Cagle Primary Care Provider: Jessee Wisdom Other Providers: Lulú Johnson; Annabelle Ramirez; Issa Alvarez; Liv Landaverde; Anisa Saleh; Ashley Hammonds; Tata Rg; Rylan Sandoval; Clarence Goins; Joe Alexis; Charmaine Kowalski; Lawrence Garcia; Debora Miner; Radha Montejo; Alexandrea Crane; Sabrina Rawls; Charline Farooq; Adolfo Gatica; Jonathon Armenta; Ila Kraus; Cam Wharton Jr; China Hernandez Other Interventions: Discharge Summary Assessment (RN) Last Done: 09/07/23 12:25
[2023-09-07 16:08] LABS: Ehrlichia chaff DNA Bld Negative (Negative)
[2023-09-08 23:34] LABS: Babesia microti DNA Not Detected (Not Detected); Q Fever IgG, Phase I NEGATIVE; Q Fever Phase I IgM Antibody NEGATIVE; Q Fever Phase II IgG Antibody NEGATIVE; Q Fever Phase II IgM Antibody NEGATIVE; R. typhi IgG Ab NOT DETECTED; R. typhi IgM Ab NOT DETECTED; RMSF IgG Ab NOT DETECTED; RMSF IgM Ab NOT DETECTED
== END 2023-09-07 13:50 | disposition home or self-care (01) | DRG 438 ==
LOC: ED 17:14 → SUATTDRO 20:12 → 3N 20:12

== ENCOUNTER 2023-10-28 06:25 | Inpatient (IN) ==
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
--- NOTE | 2023-10-28 07:18 | XRay Report ---
XR chest 1V portable CLINICAL HISTORY: Upper abdominal pain. COMPARISON STUDY: Chest CT November 06, 2019. Chest radiograph September 02, 2023. FINDINGS: Postoperative findings within the spine are incidentally noted. Moderate elevation of the r ight hemidiaphragm has slightly increased. Patient is mildly rotated. Cardiomediastinal silhouette is stable. There is no evidence for pulmonary edema. IMPRESSION: 1. No acute cardiopulmonary findings. 2. Slight increase in moderate elevation of the right hemidiaphragm. ACT 112: Negative or not required by law. Electronically signed by: John Parham M.D. 10/28/2023 7:16 AM
[2023-10-28] MEDS: HYDROmorphone INJ 1 MG/ML SYRINGE IV PRN (07:25)
[2023-10-28] MEDS: ONDANSETRON INJ 2 MG/ML 2 ML VIAL IV STA (07:25)
[2023-10-28] MEDS: PANTOprazole 40 MG in SYRINGE 0 ML IV ONE (07:26)
[2023-10-28] MEDS: FAMOTIDINE 20MG IV PUSH 20 MG/5 ML SYR IV STA (07:27)
[2023-10-28] MEDS: SODIUM CHLORIDE 0.9% 1,000 ML IV STA (07:27)
[2023-10-28 07:30] LABS: Basophils # (auto) 0.06 K/uL (0.00-0.20); Basophils % (auto) 0.6 %; Eosinophils # (auto) 0.15 K/uL (0.00-0.50); Eosinophils % (auto) 1.5 %; Hemoglobin 14.9 g/dl (12.0-16.0); Immature Granulocytes # (auto) 0.03 K/uL (0.01-0.20); Immature Granulocytes % (auto) 0.3 %; Lymphocytes # (auto) 3.88 K/uL (1.20-3.40); Lymphocytes % (auto) 38.7 %; Mean Corpuscular Hemoglobin 29.6 pg (25.0-34.0); Mean Corpuscular Hgb Conc 33.9 g/dL (32.0-36.0); Mean Corpuscular Volume 87.3 fL (80.0-100.0); Mean Platelet Volume 10.2 fL (9.4-12.4); Monocytes # (auto) 1.13 K/uL (0.11-0.59); Monocytes % (auto) 11.3 %; Neutrophils # (auto) 4.78 K/uL (1.40-6.50); Neutrophils % (auto) 47.6 %; Platelet Count 437 K/uL (130-400); RDW Coefficient of Variation 17.2 % (11.5-14.5); RDW Standard Deviation 53.6 fL (36.4-46.3); Red Blood Count 5.04 M/uL (4.20-5.40); White Blood Count 10.03 K/ul (4.8-10.8)
[2023-10-28 07:51] LABS: Alanine Aminotransferase 81 U/L (7-52); Albumin Globulin Ratio 1.1 (0.9-2); Alkaline Phosphatase 122 U/L (34-104); Anion Gap 8 (3-11); BUN Creatinine Ratio 28.4 (10-20); Bilirubin,Total 0.4 mg/dl (0.2-1.0); Blood Urea Nitrogen 27 mg/dl (6-23); Calcium 8.5 mg/dl (8.6-10.3); Carbon Dioxide 23 mmol/L (21-32); Chloride 104 mmol/L (98-107); Est GFR (African American) 75.5 ml/min; Est GFR (Non-African American) 65.1 ml/min; Globulin 3.5 gm/dl (2.5-4.0); Glucose 82 mg/dl (70-99(Fasting)); Lipase 109 U/L (11-82); Sodium 135 mmol/L (136-145); Total Protein 7.5 gm/dl (6.0-8.3); Troponin I High Sensitivity 4.1 pg/ml (0-14)
[2023-10-28 08:51] LABS: INR 4.1 (0.9-1.1); Partial Thromboplastin Ratio 1.3; Partial Thromboplastin Time 35 Seconds (21-31)
[2023-10-28 08:52] LABS: Potassium 4.8 mmol/L (3.5-5.1)
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
[2023-10-28 09:55] LABS: Appearance Urine Cloudy (Clear); Bacteria Urine Automated None Seen (None Seen); Bilirubin Urine Negative (Negative); Blood Urine Negative (Negative); Color Urine Yellow; Epithelial Cell Urine Auto 0-2 /hpf (0-2); Glucose Urine UA Negative (Negative); Ketones Urine Negative (Negative); Leukocyte Esterase Urine Trace (Negative); Nitrite Urine Negative (Negative); Protein Urine Negative (Negative); Specific Gravity Urine 1.023 (1.000-1.030); Urobilinogen Urine Negative (Negative); WBC Urine Automated 0-5 /hpf (0-5)
[2023-10-28 10:07] LABS: Calcium Oxalate Crystals Urine Present (None Prsent)
[2023-10-28 10:08] LABS: Cast Urine Automated 0-2 /lpf (0-2); RBC Urine Automated 0-2 /hpf (0-2)
--- OUTSIDE RECORDS SUMMARY | 2023-10-28 10:22 | External Medical Summary | Summary of Care ---
Author Name Unknown Organization [facility] Address [address] [facility] [address] Phone [phone] Care Team Providers Care Plant Guard Name Role Phone Jessee Wisdom MD Primary Care Provider [phone] Encounter Details Date Type Department Care Team (Late st Contact Info) Description 10/21/2023 Orders Only PATIENT PORTAL DO NOT DELETE THIS DEPT USED BY [place] [id number] Allergies Active Allergy Reactions Criticality Noted Date Comments Ciprofloxacin Nausea/vomiting 01/04/2023 Clindamycin Other (Please comment) 09/19/2020 Stomach pain Latex Rash 07/23/2006 Prolonged exposure only Morphine Other (Please comment) High 02/06/2020 Sulfa Antibiotics Hives 05/05/2004 documented as of this encounter (statuses as of 10/21/2023) Medications Medication Sig Dispensed Refills Start Date [...] Tablet Take by mouth daily. 0 Active buPROPion HCl ER (XL) 300 MG [...] BEDTIME 180 Tablet 3 11/06/2022 4 Active Omeprazole 20 MG Oral Capsule Delayed Release (PriLOSEC) TAKE 1 CAPSULE BY MOUTH 2 TIMES A DAY, 30 MINUTES BEFORE MORNING AND EVENING MEALS 180 Capsule 1 01/04/2023 4 Active tiZANidine HCl 4 MG Oral Tablet (Zanaflex) Take 2-3 tablets at bedtime. 90 Tablet 11 02/21/2023 Active Fluticasone Propionate 50 MCG/ACT Nasal Suspension [...] DAYS PER WEEK 90 Tablet 3 08/30/2023 5 Active Furosemide 20 MG Oral Tablet (Lasix)Indications:B ilateral lower extremity edema TAKE ONE TABLET BY MOUTH EVERY DAY IN THE MORNING 90 Tablet 1 08/28/2023 5 Active Zolpidem Tartrate ER 12.5 MG Oral Tablet Extended ReleaseIndications:P rimary insomnia Take one tablet by mouth every night at bedtime 30 Tablet 5 09/05/2023 Active Eletriptan Hydrobromide 40 MG Oral Tablet (Relpax)Indications: Intractable chronic migraine without aura and without status migrainosus,Cervical rose Take one half to one tablet by mouth at start of headache; may repeat once after two hours. Take up to 2 days a week. 48 Tablet 1 09/24/2023 Active DULoxetine HCl 60 MG Oral Capsule Delayed Release Particles (Cymbalta) Take 1 Capsule by mouth in the morning. Do not cut, crush or chew. 90 Capsule 3 09/27/2023 Active Galcanezumab-gnlm 120 MG/ML Subcutaneous Solution Auto-injector (Emgality) Inject 1 mL under the skin Every Month. 1 mL 11 09/30/2023 Active Ondansetron 4 MG Oral Tablet Disintegrating (Zofran)Indications: Intractable migraine with aura with status migrainosus TAKE 1 to 2 tablets BY MOUTH EVERY 8 HOURS NEEDED FOR RELIEF OF NAUSEA 270 Tablet 0 10/07/2023 Active predniSONE 10 MG Oral Tablet (Deltasone) Days 1-2 take 6 tabs by mouth in the morning, Days 3-4 take 5 tabs, Days 5-6 take 4 tabs, Days 7-8 take 3 tabs, Days 9-10 take 2 tabs, Days 11-12 take 1 tab then stop. 42 Tablet 0 10/10/2023 Active oxyCODONE HCl 5 MG Oral Tablet (Oxy IR)Indications:Chron ic pancreatitis, unspecified pancreatitis type (HCC) Take 1 Tablet by mouth every 8 hours as needed for Pain, Severe. 20 Tablet 0 10/15/2023 Active Warfarin Sodium 5 MG Oral Tablet (Coumadin) TAKE ONE-HALF TO ONE TABLET BY MOUTH ONCE DAILY OR DIRECTED BY COUMADIN CLINIC 90 Tablet 3 10/18/2023 5 Active documented as of this encounter (statuses as of 10/21/2023) Active Problems Problem Noted Date Diagnosed Date History of Lyme disease 10/15/2023 Morbid obesity with body mass index (BMI) of 40. 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 0 to 44.9 in adult 09/30/2023 10/15/2023 Overview: Per Obesity protocol Depression, unspecified 07/23/202306/26 Food insecurity 06/05/2021 08/08/2022 Overview: Per [facility] Protocol Intractable chronic migraine without aura and without status migrainosus 12/10/2016 05/13/2023 Gastric bypass status for obesity 08/18/2015 11/23/2016 UTI (urinary tract infection) 03/10/2015 11/23/2016 SIRS (systemic inflammatory response syndrome) 03/09/2015 08/24/2021 Nausea and vomiting 02/19/2015 03/09/20 15 Pulmonary embolism 02/19/2015 5 Severe malnutrition 01/24/2015 11/24/19 17 Vitamin A deficiency 01/20/2015 022 Overview: VITAMIN A(ug/L) Zeeshan Dt/Tm Resulted Value Low High Status 01/19/15 6:54A 01/20/15 112* 300 800 FINAL DUPLICATE Protein-calorie malnutrition, moderate 12/25/2014 11/23/2016 Pulmonary embolism [...] as of this encounter (statuses as of 10/21/2023) Immunizations Name Administration Dates Next Due 08/07/2016, [...] Answer Date Recorded PHQ Adult Total Score 15 09/27/2023 Hunger Vital Sign Answer Date Recorded Within the past 12 months, y ou worried that your food would run out before you got the money to buy more. Patient declined Within the past 12 months, t he food you bought just didn't last and you didn't have money to get more. Patient declined 10/2023 Sex and Gender Information Value Date Recorded [...] Department Care Team (Latest Contact Info) Description 10/21/2023 6:45 PM EDT Anticoagulation Pharmacy Call Center [address] [place] [address] [facility] [address] [facility] [place] [phone] Recurrent pulmonary emboli (HCC)* 11/06/2023 6:45 PM EDT Anticoagulation Pharmacy Call Center [address] [place] [address] [facility] [address] [place] [address] 01/21/2024 10:30 AM EDT Office Visit Gastroenterology, [facility] [address] [facility] [place] [address] Annabelle Ramirez CRNP [address] [facility] [place] [address] 04/13/2024 9:20 AM EDT Office [facility] [address] [facility] [phone] Jessee Wisdom MD [address] [place] [facility] [place] [address] 09/14/2024 10:40 AM EDT Telemedicine Neurology[address] [place] [address] iMchelle Roth MD [address], [place] [id number] Scheduled Procedures Name Priority Associated Diagnoses Date/Ti me COLONOSCOPY FLEXIBLE PROXIMA L DIAGNOSTIC Recall Family history of colonic polyps Health Maintenance Due Date Last Done Comments Cologuard 01/20/2008 Fecal Occult Blood Test 01/20/2008 Sigmoidoscopy 01/20/2008 MENINGOCOCCAL (MENACTRA/MENVEO) (2 - Risk 2-dose series) 12/20/2014 10/25/2014, 10/25/2014 Mammogram 03/29/2015 03/29/2014, 10/22, 09/03/2008 COVID-19 Vaccine (2022- season) 2023 10/13/2020, 09/10/2020 Depression, Most Recent Score >= 10 (will fire each visit until score < 10) 09/28/2023 09/27/2023, 09/27/2023 Lipid Panel 02/22/2025 02/23/2020, 08/24, 05/10/2008, Additional history exists Diabetes Screening 07/23/2026 07/23/2023, 1 07/13/2022, 08/23/2022, Additional history exists Colonoscopy 05/02/2027 05/02/2022, 02/2022, 02/14/2021, Additional history exists Colorectal Cancer Screening 05/02/2027 Pneumococcal Vaccine: Pediatrics (0 to 5 Years) and At-Risk Patients (6 to 64 Years) (4 of 4 - PPSV23 or PCV20) 01/20/2028 04/01/2020, 10/25/2014, 02/21/2010 DTaP,Tdap,and Td Vaccines (3 - Td or Tdap) 05/16/2028 05/16/2018, 05/10/2008 Zoster Vaccines Completed 03/18/2020, 05/16/2018 RETIRED - COLONOSCOPY-EVERY 5 YRS AGES 18-100 Discontinued 05/02/2022, 05/02/2022, 02/14/2021, Additional history exists Influenza Vaccine (FLU shot) Completed 05/13/2023, 04/20/2022, 03/10/2021, Additional history exists GARDASIL-HPV IMMUNIZATION SERIES Aged Out No longer eligible based on patient's age to complete this topic Hepatitis B Aged Out No longer eligi ble based on patient's age to complete this topic documented as of this encounter Medical Devices Implanted Type Area Life Scientists Device Identifier Shelf Expiration Date Model / Serial / Lot Alloderm 2x4cm [id number] (8 Units) - [id number] - [id number] Implanted:Qty: 8 on 2015 by David Rosado MD at OR [facility] Tissue - Human N/A: Esophagus [employer] 10/21/2016 [id number] / [id number] Stent Esoph Endomaxx [id number] - [id number] Implanted:Qty: 1 on 07/09/2013 at OR [facility] N/A: Esophagus [employer] 07/09/2015 [id number] / / [id number] Stent Esoph Endomaxx [id number] - [id number] Implanted:Qty: 1 on 12/08/2013 at OR [facility] [employer] 06/23/2016 [id number] / / [id number] Stent Esoph Endomaxx [id number] - [id number] Implanted:Qty: 1 on 10/19/2014 by David Rosado MD at OR [facility] N/A: Esophagus [employer] 05/23/2017 [id number] / / [id number] Stent Wallflex Esophogeal 28x1 - [id number] - [id number] Implanted:Qty: 1 on 2015 by David Rosado MD at OR [facility] N/A: Esophagus [employer] : ENDOSCOPY 06/23/2016 [id number] / [id number] / [id number] Stent Wallflex 27 Mm X 22 Mm [id number] Implanted:Qty: 1 on 2015 by David Rosado MD at OR [facility] N/A: Esophagus [employer] : ENDOSCOPY [id number] / / Stent Eso Gw [id number] - [id number] Implanted:Qty: 1 on 02/16/2015 by David Rosado MD at OR [facility] N/A: Esophagus [employer] 04/23/2017 [id number] / / [id number] Screw Ti Locking 1.8mm 497.78 - [id number] Implanted:Qty: 8 on 09/27/2021 by Messi Doll MD at OR [facility] Right: Spine Cervical SYNTHES 497.78 / / Screw Ti Expans 4.35mm 487.054 - [id number] Implanted:Qty: 8 on 09/27/2021 by Messi Doll MD at OR [facility] Right: Spine Cervical SYNTHES 487.054 / / Plate Cslp 487.355 - [id number] Implanted:Qty: 1 on 09/27/2021 by Messi Doll MD at OR [facility] Right: Spine Cervical SYNTHES 487.355 / / Cervical Vertigraft 5x7 - [id number] - [id number] Implanted:Qty: 1 on 09/27/2021 by Messi Doll MD at OR [facility] Right: Spine Cervical [employer] 01/23/2026 [id number] / [id number] / [id number] Cervical Vertigraft 6x8 - [id number] - [id number] Implanted:Qty: 1 on 09/27/2021 by Messi Doll MD at OR [facility] Right: Spine Cervical [employer] 11/10/2025 [id number] / [id number] / [id number] Cervical Vertigraft 5x7 - [id number] - [id number] Implanted:Qty: 1 on 09/27/2021 by Messi Doll MD at OR [facility] Right: Spine Cervical [employer] 04/09/2026 [id number] / [id number] / [id number] documented as of this encounter Advance [...] the patient have Health Care Power of Bi Application Developer? No Full Code 01/12/2015 10:35 PM 01/21/2015 4:44 PM Question Answer Comments Discussion of Advance Directives occurred with: Not Discussed Full Code 12/22/2014 4:26 AM 12/25/2014 5:53 PM This o rder reflects the patients wishes and were consensually agreed upon. Question Answer Comments Discussion of Advance Directives occurred with: Patient Care Teams Plant Guard Relationship Specialty Start Date End Date Jessee Wisdom MD [address] [facility] [place] [address] PCP - General Family Medicine 06/20/17 documented as of this encounter
--- OUTSIDE RECORDS SUMMARY | 2023-10-28 10:22 | External Medical Summary | Summary of Care ---
Author Name Unknown Organization [facility] Address [address] [place] [address] Phone [phone] Care Team Providers Care Occupational Health Nursing Director Name Role Phone Jessee Wisdom MD Primary Care Provider [phone]- [phone] Reason for Visit * Reason Comments Follow Up Patient is here for a yearly check upPatient states she needs another script for her pancreatitis painPatient states she has a small pimp/bump on her left forearm Patient states she has had some tick bitesPatient states she has a question about Trulicity Encounter Details Date Type Department Care Team (Late st Contact Info) Description 10/15/2023 11:40 AM EDT Office Visit [facility] [address] [place] [address] Jessee Wisdom MD [address] [place] [address] Chronic pancreatitis, unspecified pancreatitis type (HCC)*; History of Lyme disease; S/P cervical spinal fusion; Morbid obesity with body mass index (BMI) of 40.0 to 49.9 (HCC); Chronic migraine with aura without status migrainosus, not intractable; Anxiety state; Depression with anxiety; Encounter for long-term (current) use of medications Allergies Active Allergy Reactions Criticality Noted Date Comments Ciprofloxacin Nausea/vomiting 01/04/2023 Clindamycin Other (Please comment) 09/19/2020 Stomach pain Latex Rash 07/23/2006 Prolonged exposure only Morphine Other (Please comment) High 02/06/2020 Sulfa Antibiotics Hives 05/05/2004 documented as of this encounter (statuses as of 10/15/2023) Medications Medication Sig Dispensed Refills Start Date [...] the morning. 16 g 2 05/06/2023 Active Warfarin Sodium 5 MG Oral Tablet [...] Pain, Severe. 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 SHIN RESEARCH OTHER*[id number] 02/03/2006 Anxiety state 08/07/2005 AGORAPHOBIA 08/07/2005 Class 2 obesity without seri ous comorbidity with body mass index (BMI) of 39.0 to 39.9 in adult 04/22/2000 Overview: Per Obesity Taxonomy documented as of this encounter (statuses as of 10/15/2023) Resolved Problems Problem Noted Date Diagnosed Date [...] as of this encounter (statuses as of 10/15/2023) Immunizations Name Administration Dates Next Due 08/07/2016, [...] Sign Reading Time Taken Comments Blood Pressure 124/82 10/15/2023 11:32 AM EDT Pulse 75 10/15/2023 11:32 AM EDT Temperature 36.3 C (97.3 F) 10/15/2023 1 1:32 AM EDT Respiratory Rate 16 10/15/2023 11:3 2 AM EDT Oxygen Saturation 95% 10/15/2023 11: 32 AM EDT Inhaled Oxygen Concentration - - Weight 112.6 kg (248 lb 3.2 oz) 024 11:32 AM EDT Height - - Body Mass Index 40.06 03/01/2023 5:57 PM EDT documented in this [...] as of this encounter Progress Notes * Jessee Wisdom MD - 10/15/2023 12:17 PM EDT Subjective: Ashley Morales is a 58 year old female here today for Chief Complaint Patient presents with Follow Up Patient is here for a yearly check up Patient states she needs another script for her pancreatitis pain Patient states she has a small pimp/bump on her left forearm Patient states she has had some tick bites Patient states she has a question about Trulicity Patient presents for routine recheck. She was admitted to the hospital in August for acute on chronic pancreatitis. She does have a follow up with Gastroenterology in December. There has been discussion about doing an ERCP. 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 Patient was di scharged on oxycodone. Was advised that she may need a pain management consultation in regards to ongoing pain related to chronic pancreatitis. She has been able to decrease the frequency with which she takes oxycodone. She gets occasional flares of abdominal pain where she needs the medicine. Fifteen tablets have lasted her a month and a half. She has a small lump on her left forearm which is discolored and appears to be right below the surface of the skin. She believes it has grown in the last few weeks. No pain or symptoms related to it.Does not remember any injury at the site. She has had some tick bites. She was treated in the hospital for Lyme and we reviewed her tick borne disease testing. She was negative for Mansoor mountain spotted fever and babesiosis. She did test positive with IgG and IgM antibodies for Lyme. Patient has concerns about weight gain and is questioning whether she could take Trulicity. She is not diagnosed with diabetes at the current time. She does have a diagnosis of gastroparesis and takes metoclopramide. We reviewed that the medication could worsen gastric emptying and she has therefore not interested. She was offered a return visit to the GI nutrition clinic in regards To weight issues. She declines at this point. No recent bruising or bleeding with coumadin therapy. Past Medical History: Diagnosis Date Depressive disorder, not elsewhere classified Dr. Chaparro Family history of colon cancer Migraine with aura Dr. Phan Obesity, BMI not known 04/22/2000 Other anxiety states Pulmonary embolism, bilateral (HCC) 06/11/2013 Multiple bilateral segmental Past Surgical History: Procedure Laterality Date ALLOGRAFT, STRUCTURAL, FOR SPINE SURGERY Right 09/27/2021 ALLOGRAFT FOR SPINE SURGERY STRUCTURAL performed by Messi Doll MD at [facility] ARTHRODESIS, ANT INTERBODY, BELOW C-2 Right 09/27/2021 ARTHRODESIS, ANT INTERBODY, BELOW C-2 performed by Messi Doll MD at [facility] ARTHRODESIS,ANT INTERBODY,BELOW C-2,EA ADDL Right 09/27/2021 ARTHRODESIS,ANT INTERBODY,BELOW C-2,EA ADDL performed by Messi Doll MD at [facility] COLONOSCOPY 08/02/2008 Repeat 5 yrs COLONOSCOPY, DIAGNOSTIC (RECTUM) 01/24/2016 normal, repeat 5 yrs/[facility] COLONOSCOPY, DIAGNOSTIC (RECTUM) 02/14/2021 poor prep, repeat 1 yr / COLONOSCOPY FLEXIBLE PROXIMAL DIAGNOSTIC performed by Charline Farooq MD at ENDOSCOPY [facility] COLONOSCOPY, DIAGNOSTIC (RECTUM) 05/02/2022 normal, repeat 5 yrs / COLONOSCOPY FLEXIBLE PROXIMAL DIAGNOSTIC performed by Charline Farooq MD at ENDOSCOPY [facility] COLORECTAL CANCER SCREEN; COLON 11/03/1999 Due 2004 EGD, FLEXIBLE, DIAGNOSTIC 09/26/2012 path shows mild inflammation of esophagus consistant with acid reflux negative for Barretts and mild irritation ofstomach negative for H Pylori EGD, FLEXIBLE, DIAGNOSTIC 12/08/2013 ESOPHAGOGASTRODUODENOSCOPY (EGD), FLEXIBLE, TRANSORAL, DIAGNOSTIC performed by Sabina Guillory III, MD at OR [facility] [place] [place] EGD, FLEXIBLE, DIAGNOSTIC 02/16/2014 ESOPHAGOGASTRODUODENOSCOPY (EGD), FLEXIBLE, TRANSORAL, DIAGNOSTIC performed by Sabina Guillory III, MD at ENDOSCOPY [facility] EGD, FLEXIBLE, DIAGNOSTIC 01/28/2014 Pre-existing esophageal stent- removal unsuccessful/inpt @ [facility] EGD, FLEXIBLE, DIAGNOSTIC N/A 05/19/2014 ESOPHAGOGASTRODUODENOSCOPY (EGD), FLEXIBLE, TRANSORAL, DIAGNOSTIC performed by Sabina Guillory III, MD at ENDOSCOPY [facility] [place] [place] EGD, FLEXIBLE, DIAGNOSTIC N/A 09/08/2014 ESOPHAGOGASTRODUODENOSCOPY (EGD), FLEXIBLE, TRANSORAL, DIAGNOSTIC performed by Sabina Guillory III, MD at ENDOSCOPY [facility] [place] [place] EGD, FLEXIBLE, DIAGNOSTIC N/A 10/16/2014 ESOPHAGOGASTRODUODENOSCOPY (EGD), FLEXIBLE, TRANSORAL, DIAGNOSTIC performed by Sabina Guillory III, MD at [facility] EGD, FLEXIBLE, DIAGNOSTIC 11/23/2014 ESOPHAGOGASTRODUODENOSCOPY (EGD), FLEXIBLE, TRANSORAL, DIAGNOSTIC performed by Sabina Guillory MD at ENDOSCOPY [facility] EGD, FLEXIBLE, DIAGNOSTIC 01/05/2015 ESOPHAGOGASTRODUODENOSCOPY (EGD), FLEXIBLE, TRANSORAL, DIAGNOSTIC performed by Sabina Guillory MD at [facility]OSCOPY [facility] [place] [place] EGD, FLEXIBLE, DIAGNOSTIC N/A 2015 ESOPHAGOGASTRODUODENOSCOPY (EGD), FLEXIBLE, TRANSORAL, DIAGNOSTIC performed by Sabina Guillory MD at [facility] EGD, FLEXIBLE, DIAGNOSTIC N/A 02/16/2015 ESOPHAGOGASTRODUODENOSCOPY (EGD), FLEXIBLE, TRANSORAL, DIAGNOSTIC performed by Sabina Guillory MD at [facility] EGD, FLEXIBLE, DIAGNOSTIC N/A 06/15/2015 ESOPHAGOGASTRODUODENOSCOPY (EGD), FLEXIBLE, TRANSORAL, DIAGNOSTIC performed by Sabina Guillory MD at [facility] EGD, FLEXIBLE, DIAGNOSTIC N/A 10/12/2015 ESOPHAGOGASTRODUODENOSCOPY (EGD), FLEXIBLE, TRANSORAL, DIAGNOSTIC performed by Sabina Guillory MD at ENDOSCOPY [facility] [place] [place] EGD, FLEXIBLE, DIAGNOSTIC 12/23/2018 normal/ESOPHAGOGASTRODUODENOSCOPY (EGD), FLEXIBLE, TRANSORAL, DIAGNOSTIC performed by Radha Montejo DO at [facility] EGD, FLEXIBLE, DIAGNOSTIC 08/12/2020 normal / ESOPHAGOGASTRODUODENOSCOPY (EGD), FLEXIBLE, TRANSORAL, DIAGNOSTIC performed by Clarence Goins MD at ENDOSCOPY [facility] EGD, FLEXIBLE, INSERT WIRE, PASS DILATOR 03/07/2007 UPPER GI ENDOSCOPY WITH GUIDE WIRE DILATION performed by SABINA GUILLORY III at [facility] EGD, FLEXIBLE, REMOVE FOREIGN BODY 11/02/2013 ESOPHAGOGASTRODUODENOSCOPY (EGD), FLEXIBLE, TRANSORAL, WITH REMOVAL FOREIGN BODY performed by Sabina Guillory III, MD at [facility] EGD, FLEXIBLE, REMOVE FOREIGN BODY 02/04/2014 ESOPHAGOGASTRODUODENOSCOPY (EGD), FLEXIBLE, TRANSORAL, WITH REMOVAL FOREIGN BODY performed by Sabina Guillory III, MD at [facility] EGD, FLEXIBLE, REMOVE FOREIGN BODY 02/11/2014 ESOPHAGOGASTRODUODENOSCOPY (EGD), FLEXIBLE, TRANSORAL, WITH REMOVAL FOREIGN BODY performed by Sabina Guillory III, MD at OR [facility] [place] [place] EGD, FLEXIBLE, REMOVE FOREIGN BODY N/A 06/15/2015 ESOPHAGOGASTRODUODENOSCOPY (EGD), FLEXIBLE, TRANSORAL, WITH REMOVAL FOREIGN BODY performed by Sabina Guillory MD at OR [facility] [place] [place] EGD, FLEXIBLE, TRANSENDOSCOPIC DILATION <30MM N/A 2015 ESOPHAGOGASTRODUODENOSCOPY (EGD), FLEXIBLE, TRANSORAL, BALLOON DILATION LESS THAN 30MM performed bySabina Guillory MD at OR [facility] [place] [place] EGD, FLEXIBLE, TRANSENDOSCOPIC DILATION <30MM N/A 02/16/2015 ESOPHAGOGASTRODUODENOSCOPY (EGD), FLEXIBLE, TRANSORAL, BALLOON DILATION LESS THAN 30MM performed bySabina Guillory MD at OR [facility] [place] [place] EGD, FLEXIBLE, W/DILATE STRICTURES 02/11/2014 ESOPHAGOGASTRODUODENOSCOPY (EGD), FLEXIBLE, TRANSORAL, DILATION GASTRIC OUTLET performed by Yesenia Guillory III, MD at OR [facility] [place] [place] EGD, FLEXIBLE,ENDO STENT PLACEMENT N/A 10/19/2014 ESOPHAGOGASTRODUODENOSCOPY (EGD), FLEXIBLE, TRANSORAL: STENT PLACEMENT performed by Sabina Guillory III, MD at OR [facility] [place] [place] EGD, FLEXIBLE,ENDO STENT PLACEMENT N/A 2015 ESOPHAGOGASTRODUODENOSCOPY (EGD), FLEXIBLE, TRANSORAL: STENT PLACEMENT performed by Sabina Guillory MD at OR [facility] [place] [place] EGD, FLEXIBLE,ENDO STENT PLACEMENT N/A 02/16/2015 ESOPHAGOGASTRODUODENOSCOPY (EGD), FLEXIBLE, TRANSORAL: STENT PLACEMENT performed by Sabina Guillory MD at OR [facility] [place] [place] EGD, FLEXIBLE,W/ENDOSCOPIC US 02/12/2020 big bar / [facility] ESOPHAGOSCOPY, FLEXIBLE, TRANSENDOSCOPIC DILATION <30MM 07/09/2013 ESOPHAGOSCOPY BALLOON DILATION LESS THAN 30MM performed by Sabina Guillory III, MD at [facility] EXPLORATION OF ABDOMEN 05/14/2013 EXPLORATORY LAPAROTOMY performed by Sabina Guillory III, MD at OR [facility] [place] [place] EXPLORATION OF ABDOMEN N/A 10/16/2014 EXPLORATORY LAPAROTOMY performed by Sabina Guillory III, MD at [facility] EXPLORATION OF ABDOMEN N/A 10/19/2014 EXPLORATORY LAPAROTOMY performed by Sabina Guillory III, MD at [facility] GASTRIC REVISION FOR OBESITY 08/08/2006 Performed by SABINA GUILLORY III at [facility] Log [id number] INJECT DX/THER SUBSTANCE INTERLAMINAR CERVICAL/THORACIC W IMAGE GUIDE N/A 01/23/2021 INJECTION SPINE LUMBAR CERVICAL OR THORACIC performed by Adolfo Brooks DO at [facility] IOF CT GUIDED NEEDLE BIOPSY 05/18/2013 CT GUIDED NEEDLE ASPIRATION BIOPSY performed by Kenneth Greenwood PA-C at RADIOLOGY [facility] [place] [place] IR DRAINAGE ABSCESS/SPECIMEN W CATHETER PLACEMENT 07/14/2013 RADIOLOGICAL GUIDANCE FOR ABSCESS DRAINAGE performed by Kenneth Greenwood PA-C at RADIOLOGY [facility] [place] [place] IR DRAINAGE ABSCESS/SPECIMEN W CATHETER PLACEMENT 08/14/2013 RADIOLOGICAL GUIDANCE FOR ABSCESS DRAINAGE performed by Kenneth Greenwood PA-C at RADIOLOGY [facility] [place] [place] IR US GUIDED THORACENTESIS 05/20/2013 THORACENTESIS FOR ASPIRATION W/ IMAGING performed by Amy Curry MD at RADIOLOGY [facility] [place] [place] REMOVAL OF SPLEEN, TOTAL, EN BLOC N/A 10/16/2014 SPLENECTOMY TOTAL WITH OTHER PROCEDURE performed by Sabina Guillory III, MD at [facility] REMOVE GALLBLADDER REMOVE STOMACH, PARTIAL 05/07/2013 GASTRECTOMY PARTIAL WITH GASTROJEJUNOSTOMY performed by Sabina Guillory III, MD at [facility] REVISION OF ANKLE JOINT right SPINE FIX DEV, ANT, 4-7 SEG, INSERT Right 09/27/2021 ANTERIOR INSTRUMENTATION 4 TO 7 VERTEBRAL SEGMENTS performed by Messi Doll MD at [facility] TOTAL ABD HYSTERECTOMY W/WO REMOVAL OF TUBE(S) 10/02/2010 ABISAI/BSO WEDGE BIOPSY OF LIVER 08/08/2006 Performed by SABINA GUILLORY III at [facility] Log [id number] WEDGE BIOPSY OF LIVER 05/07/2013 BIOPSY OF LIVER WEDGE performed by Sabina Guillory III, MD at [facility] Review of patient's allergies indicates: Allergen Reactions Morphine Other (Please comment) Ciprofloxacin Nausea/vomiting Clindamycin Other (Please comment) Stomach pain Latex Rash Prolonged exposure only Sulfa Antibiotics Hives Current Outpatient Medications Medication Sig Dispense Refill [...] 50+ Oral Tablet Take by mouth daily. buPROPion HCl ER (XL) 300 MG Oral Tablet Extended Release 24 Hour (Wellbutrin XL) TAKE ONE TABLET BY MOUTH EVERY MORNING 90 Tablet 2 Amitriptyline HCl 50 MG Oral Tablet (Elavil) TAKE ONE TABLET BY MOUTH AT BEDTIME EVERY DAY 90 Tablet 3 busPIRone HCl 10 MG Oral Tablet (Buspar) TAKE ONE TABLET BY MOUTH EVERY MORNING AND AT BEDTIME 180 Tablet 3 Omeprazole 20 MG Oral Capsule Delayed Release (PriLOSEC) TAKE 1 CAPSULE BY MOUTH 2 TIMES A DAY, 30 MINUTES BEFORE MORNING AND EVENING MEALS 180 Capsule 1 tiZANidine HCl 4 MG Oral Tablet (Zanaflex) Take 2-3 tablets at bedtime. 90 Tablet 11 Fluticasone Propionate 50 MCG/ACT Nasal Suspension (Flonase) Administer 2 Sprays into each nostril in the morning. 16 g 2 Warfarin Sodium 5 MG Oral Tablet (Coumadin) TAKE ONE-HALF TO ONE TABLET BY MOUTH ONCE DAILY, OR DIRECTED BY COUMADIN CLINIC 90 Tablet 0 Linzess 290 MCG Oral Capsule (linaCLOtide) Take 1 Capsule by mouth daily before breakfast. 90 Capsule 3 Metoclopramide HCl 5 MG Oral Tablet (Reglan) TAKE ONE TO TWO TABLETS BY MOUTH AT START OF HEADACHE FOR NAUSEA AND HEAD PAIN DIRECTED. TAKE UP TO THREE DAYS PER WEEK 90 Tablet 3 Furosemide 20 MG Oral Tablet (Lasix) TAKE ONE TABLET BY MOUTH EVERY DAY IN THE MORNING 90 Tablet 1 Zolpidem Tartrate ER 12.5 MG Oral Tablet Extended Release Take one tablet by mouth every night at bedtime 30 Tablet 5 Eletriptan Hydrobromide 40 MG Oral Tablet (Relpax) Take one half to one tablet by mouth at start ofheadache; may repeat once after two hours. Take up to 2 days a week. 48 Tablet 1 DULoxetine HCl 60 MG Oral Capsule Delayed Release Particles (Cymbalta) Take 1 Capsule by mouth in the morning. Do not cut, crush or chew. 90 Capsule 3 Galcanezumab-gnlm 120 MG/ML Subcutaneous Solution Auto-injector (Emgality) Inject 1 mL under the skin Every Month. 1 mL 11 Ondansetron 4 MG Oral Tablet Disintegrating (Zofran) TAKE 1 to 2 tablets BY MOUTH EVERY 8 HOURS NEEDED FOR RELIEF OF NAUSEA 270 Tablet 0 predniSONE 10 MG Oral Tablet (Deltasone) Days 1-2 take 6 tabs by mouth in the morning, Days 3-4 take 5 tabs, Days 5-6 take 4 tabs, Days 7-8 take 3 tabs, Days 9-10 take 2 tabs, Days 11-12 take 1 tab then stop. 42 Tablet 0 oxyCODONE HCl 5 MG Oral Tablet (Oxy IR) Take 1 Tablet by mouth every 8 hours as needed for Pain, Severe. 20 Tablet 0 No current facility-administered medications for this visit. Objective: BP 124/82 | Pulse 75 | Temp 36.3 C (97.3 F) (Temporal Artery) | Resp 16 | Wt 112.6 kg (248 lb 3.2 oz) | LMP 09/03/2010 | SpO2 95% | BMI 40.06 kg/m | BSA 2.29 m GEN: NAD HEENT: Benign NECK: Supple with no LAD, TM, JVD CHEST: CTA B CV: RRR ABD: Soft, NT/ND, No HSM, NABS EXT: No c,c,e Assessment and Plan: Chronic pancreatitis, unspecified pancreatitis type (HCC) (Primary) - oxyCODONE HCl 5 MG Oral Tablet (Oxy IR); Take 1 Tablet by mouth every 8 hours as needed for Pain,Severe. - COMPREHENSIVE METABOLIC PANEL; Future; Expected date: 10/15/2023 - LIPASE; Future; Expected date: 10/15/2023 -follow up with Gastroenterology in December as scheduled. Will leave ERCP to their discretion. Cautioned patient about treating pain regularly with oxycodone as would not want to hide an acute episode of pancreatitis. She will try to keep minimizing use of the medication. Plan for repeat labs in December.Call sooner for new or worsening symptoms. Continue to monitor dietary influences. History of Lyme disease -treated during last hospitalization S/P cervical spinal fusion -she has had a good result to the surgery and has significant improvement in upper extremity symptoms. Morbid obesity with body mass index (BMI) of 40.0 to 49.9 (HCC) -offered evaluation and GI nutrition clinic Chronic migraine with aura without status migrainosus, not intractable -continue with Neurology Anxiety state Depression with anxiety -continue current meds Encounter for long-term (current) use of medications - VITAMIN B12; Future; Expected date: 10/15/2023 - CBC; Future; Expected date: 10/15/2023 Skin lesion on left forearm has a nonspecific appearance. It appears as though the lesion is below the skin and not on the surface. Offered evaluation by dermatology verses return for excision. She has elected to monitor for now. Follow Up: Return in about 6 months (around 04/15/2024) for recheck. | For: recheck 42 min with pt, chart review, documentation Jessee Wisdom MD documented in this encounter Nursing Notes * Vladimir Jacobs Student - 10/15/2023 11:34 AM EDT The patient has been properly identified by confirmation of name and date of . Chief Complaint Patient presents with Follow Up Patient is here for a yearly check up Patient states she needs another script for her pancreatitis pain Patient states she has a small pimp/bump on her left forearm Patient states she has had some tick bites Patient states she has a question about Trulicity documented in this encounter Plan of Treatment Upcoming Encounters Date Type Department Care Team (Late st Contact Info) Description 10/21/2023 6:45 PM EDT Anticoagulation Pharmacy Call Center [phone] [place] [phone] [facility] [address] [facility] [place] [phone] 01/21/2024 10:30 AM EDT Office [facility], [facility] [address] [facility] [place] [address] Annabelle Ramirez CRNP [address] [place] [address] 04/13/2024 9:20 AM EDT Office Visit [facility] [address] [place] [address] Jessee Wisdom MD [address], [place] [id number] 09/14/2024 10:40 AM EDT Telemedicine Neurology, [place] [address] [place] [address] Michelle Roth MD [address] [place] [address] Scheduled Orders Name Type Priority Associated Diagnoses Orde r Schedule COMPREHENSIVE METABOLIC PANEL Lab Routine Chronic pancreatitis, unspecified pancreatitis type (HCC) Expected: 10/15/2023 (Approximate), Expires: 10/14/2024 LIPASE Lab Routine Chronic pancreatitis, unspecified pancreatitis type (HCC) Expected: 10/15/2023 (Approximate), Expires: 10/14/2024 VITAMIN B12 Lab Routine Encounter for long-term (current) use of medications Expected: 10/15/2023 (Approximate), Expires: 10/14/2024 CBC Lab Routine Encounter for long-term (current) use of medications Expected: 10/15/2023 (Approximate), Expires: 10/14/2024 Scheduled Procedures Name Priority Associated Diagnoses Date/Ti me COLONOSCOPY FLEXIBLE PROXIMA L DIAGNOSTIC Recall Family history of colonic polyps Health Maintenance Due Date Last Done Comments MENINGOCOCCAL (MENACTRA/MENVEO) (2 - Risk 2-dose series) 12/20/2014 10/25/2014, 10/25/2014 Mammogram 03/29/2015 03/29/2014, 10/22, 09/03/2008 COVID-19 Vaccine ( season) 2023 10/13/2020, 09/10/2020 Depression, Most Recent [...] this encounter Medical Devices Implanted Type Area Promotions Specialist Device Identifier Shelf Expiration Date Model / Serial / Lot Alloderm 2x4cm [id number] (8 Units) - [id number] - [id number] Implanted:Qty: 8 on 2015 by Sabina Guillory MD at OR [facility] [place] [place] Tissue - Human N/A: [employer]ophagus [employer] 10/21/2016 [id number] / [id number] / [id number] Stent Esoph Endomaxx [id number] - [id number] Implanted:Qty: 1 on 07/09/2013 at OR [facility] [place] [place] N/A: Esophagus [employer] 07/09/2015 [id number] / / [id number] Stent Esoph Endomaxx [id number] - [id number] Implanted:Qty: 1 on 12/08/2013 at OR [facility] [place] [place] [employer] 06/23/2016 [id number] / / [id number] Stent Esoph Endomaxx [id number] - [id number] Implanted:Qty: 1 on 10/19/2014 by Sabina Guillory MD at [facility] [place] [place] N/A: Esophagus [employer] 05/23/2017 [id number] / / [id number] Stent Wallflex Esophogeal 28x1 - [id number] - [id number] Implanted:Qty: 1 on 2015 by Sabina Guillory MD at [facility] [place] [place] N/A: Esophagus [employer] : ENDOSCOPY 06/23/2016 [id number] / [id number] / [id number] Stent Wallflex 27 Mm X 22 Mm [id number] Implanted:Qty: 1 on 2015 by Sabina Guillory MD at [facility] [place] [place] N/A: Esophagus [employer] : ENDOSCOPY [id number] / / Stent Eso Gw [id number] - [id number] Implanted:Qty: 1 on 02/16/2015 by Sabina Guillory MD at [facility] [place] [place] N/A: Esophagus [employer] 04/23/2017 [id number] / / [id number] Screw Ti Locking 1.8mm 497.78 - [id number] Implanted:Qty: 8 on 09/27/2021 by Messi Doll MD at OR [facility] [place] [place] Right: Spine Cervical SYNTHES 497.78 / / Screw Ti Expans 4.35mm 487.054 - [id number] Implanted:Qty: 8 on 09/27/2021 by Messi Doll MD at [facility] [place] [place] Right: Spine Cervical SYNTHES 487.054 / / Plate Cslp 487.355 - [id number] Implanted:Qty: 1 on 09/27/2021 by Messi Doll MD at [facility] [place] [place] Right: Spine Cervical SYNTHES 487.355 / / Cervical Vertigraft 5x7 - [id number] - [id number] Implanted:Qty: 1 on 09/27/2021 by Messi Doll MD at [facility] [place] [place] Right: Spine Cervical [employer] 01/23/2026 [id number] / [id number] Cervical Vertigraft 6x8 - [id number] - [id number] Implanted:Qty: 1 on 09/27/2021 by Messi Doll MD at [facility] [place] [place] Right: Spine Cervical [employer] 11/10/2025 [id number] / [id number] / [id number] Cervical Vertigraft 5x7 - [id number] - [id number] Implanted:Qty: 1 on 09/27/2021 by Messi Doll MD at [facility] Right: Spine Cervical [employer] 04/09/2026 [id number] / [id number] / [id number] documented as of this encounter Visit Diagnoses Diagnosis Chronic pancreatitis, unspecified pancreatitis type (HCC)- Primary History of Lyme disease Personal history of other infectious and parasitic disease S/P cervical spinal fusion Arthrodesis status Morbid obesity with body mass index (BMI) of 40.0 to 49.9 (HCC) Chronic migraine with aura without status migrainosus, not intractable Anxiety state Anxiety state, unspecified Depression with anxiety Dysthymic disorder Encounter for long-term (current) use of medications Encounter for long-term (current) use of other medications documented in this encounter Advance Directives Latest [...] the patient have Health Care Power of Supervisor Patching? No Full Code 01/12/2015 10:35 PM 01/21/2015 4:44 PM Question Answer Comments Discussion of Advance Directives occurred with: Not Discussed Full Code 12/22/2014 4:26 AM 12/25/2014 5:53 PM This or nu reflects the patients wishes and were consensually agreed upon. Question Answer Comments Discussion of Advance Directives occurred with: Patient Care Teams Occupational Health Nursing Director Relationship Specialty Start Date End Date [facility] Wis[facility] [address] [facility] [address] P[facility] - General Family Medicine 06/20/17 documented as of this encounter"
--- OUTSIDE RECORDS SUMMARY | 2023-10-28 10:22 | External Medical Summary | Summary of Care ---
Author Name Unknown Organization [facility] Address [address] [place] [address] Phone [phone] Care Team Providers Care Caretaker Resort Name Role Phone Jessee Wisdom MD Primary Care Provider +1- [phone] Reason for Visit * Reason Comments Dosage Adjustment Via Phone (anticoag Cl inic) Encounter Details Date Type Department Care Team (Latest Contact Info) Description 10/21/2023 6:45 PM EDT Anticoagulation Pharmacy Call Center [address] [place] [address] [facility] 58 60 [facility] [place] [address] Recurrent pulmonary emboli (HCC)* Allergies Active Allergy [...] BY COUMADIN CLINIC 90 Tablet 3 10/18/2023 Active documented as of this encounter (statuses [...] term 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 Last INR 09/20. Will attempt gain in 2 weeks. Thank you, Luisa Blackwell Signal Maintainer [facility] ([facility]) ( Formerly Telepharmacy) 10/21/2023, 8:10 AM documented in this encounter Plan of Treatment Upcoming Encounters Date Type Department Care Team (Late st Contact Info) Description 11/06/2023 6:45 PM EDT Anticoagulation Pharmacy Call Center [address] [facility] [place] [address] [facility] 58 60 [facility] [place] [address] 01/21/2024 10:30 AM EDT Office Visit Gastroenterology, [facility] [address] [place] [address] Annabelle Ramirez CRNP [address] [place] [address] 04/13/2024 9:20 AM EDT Office Visit [facility] [address] [place] [address] Jessee Wisdom MD [address] [place] [address] 09/14/2024 10:40 AM EDT Telemedicine Neurology, [place] [address] [place] [address] Michelle Roth MD [address] [place] [address] Scheduled Procedures Name Priority Associated [...] this encounter Medical Devices Implanted Type Area Lubrication Worker Device Identifier Shelf Expiration Date Model / Serial / Lot Alloderm 2x4cm [id number] (8 Units) - [id number] - [id number] Implanted:Qty: 8 on 2015 by David Rosado MD [place] [facility] [place] Tissue - Human N/A: Esophagus [employer] 10/21/2016 [id number] / [id number] / [id number] Stent Esoph Endomaxx 91h048 - [id number] Implanted:Qty: 1 on 07/09/2013 at [place] [facility] [place] N/A: Esophagus [employer] 07/09/2015 [id number]-2315 / / [id number] Stent Esoph Endomaxx 33p191 - [id number] Implanted:Qty: 1 on 12/08/2013 at [place] [facility] [place] [employer] 06/23/2016 [id number]-1915 / / [id number] Stent Esoph Endomaxx 87w427 - [id number] Implanted:Qty: 1 on 10/19/2014 by David Rosado MD at [place] [facility] [place] N/A: Esophagus [employer] 05/23/2017 [id number]-2315 / / [id number] Stent Wallflex Esophogeal 28x1 - [id number] - [id number] Implanted:Qty: 1 on 2015 by David Rosado MD at [place] [facility] [place] N/A: Esophagus [employer] : ENDOSCOPY 06/23/2016 [id number] / [id number] / [id number] Stent Wallflex 27 Mm X 22 Mm [id number] Implanted:Qty: 1 on 2015 by David Rosado MD at [place] [facility] [place] N/A: Esophagus [employer] : ENDOSCOPY [id number] / / Stent Eso Gw [id number] - [id number] Implanted:Qty: 1 on 02/16/2015 by David Rosado MD at [place] [facility] [place] N/A: Esophagus [employer] 04/23/2017 [id number] / / [id number] Screw Ti Locking 1.8mm 497.78 - [id number] Implanted:Qty: 8 on 09/27/2021 by Messi Doll MD at [place] [facility] [place] Right: Spine Cervical SYNTHES 497.78 / / Screw Ti Expans 4.35mm 487.054 - [id number] Implanted:Qty: 8 on 09/27/2021 by Messi Doll MD at [place] [facility] [place] Right: Spine Cervical SYNTHES 487.054 / / Plate Cslp 487.355 - [id number] Implanted:Qty: 1 on 09/27/2021 by Messi Doll MD at [place] [facility] [place] Right: Spine Cervical SYNTHES 487.355 / / Cervical Vertigraft 5x7 - [id number] - [id number] Implanted:Qty: 1 on 09/27/2021 by Messi Doll MD at [place] [facility] [place] Right: Spine Cervical LIFENET 01/23/2026 [id number] / [id number] [id number] Cervical Vertigraft 6x8 - [id number] - [id number] Implanted:Qty: 1 on 09/27/2021 by Messi Doll MD at [place] [facility] [place] Right: Spine Cervical LIFENET 11/10/2025 [id number] / [id number] / [id number] Cervical Vertigraft 5x7 - [id number] - [id number] Implanted:Qty: 1 on 09/27/2021 by Messi Doll MD at [place] [facility] [place] Right: Spine Cervical LIFENET 04/09/2026 [id number] / [id number] / [id number] documented as of this encounter Visit [...] patient have Health Care Power of Junior Copywriter? No Full Code 01/12/2015 10:35 PM 01/21/2015 4:44 PM Question Answer Comments Discussion of Advance Directives occurred with: Not Discussed Full Code 12/22/2014 4:26 AM 12/25/2014 5:53 PM This or nu reflects the patients wishes and were consensually agreed upon. Question Answer Comments Discussion of Advance Directives occurred with: Patient Care Teams Caretaker Resort Relationship Specialty Start Date End Date Jessee Wisdom MD [address] [place] [address] PCP - General Family Medicine 06/20/17 documented as of this encounter
--- OUTSIDE RECORDS SUMMARY | 2023-10-28 10:23 | External Medical Summary | Summary of Care ---
Author Name Unknown Organization [facility] Address [address] [place] [address] Phone [phone] Care Team Providers Care Invoice Coder Name Role Phone Jessee Wisdom MD Primary Care Provider +1- [phone] Reason for Visit * Reason Onset Date Comments Precert Approved 09/26/2023 Emgality Encounter Details Date Type Department Care Team (Late st Contact Info) Description 09/26/2023 Telephone Neurology, [place] [address] [place] [address] Michelle Roth MD [address] [place] [address] Precert Approved ( Emgality) Allergies Active Allergy Reactions Criticality Noted Date Comments Ciprofloxacin Nausea/vomiting 01/04/2023 Clindamycin Other (Please comment) 09/19/2020 Stomach pain Latex Rash 07/23/2006 Prolonged exposure only Morphine Other (Please comment) High 02/06/2020 Sulfa Antibiotics Hives 05/05/2004 documented as of this encounter (statuses as of 10/07/2023) Medications Medication Sig Dispensed Refills Start Date [...] . 2550 g 2 1 Active Calcium Carb-Cholecalcifer ol 600-400 MG-UNIT Oral Tablet (Calcium 600+D) Take by mouth 1 Tablet 2 times a day . 60 Tablet 5 2 Active One-A-Day Womens 50+ Oral Tablet Take by mouth daily. 0 Active buPROPion HCl ER (XL) 300 MG Oral Tablet Extended Release 24 Hour (Wellbutrin XL)Indications:Dep ression with anxiety TAKE ONE TABLET BY MOUTH EVERY MORNING 90 Tablet 2 3 12/17/19 24 Active Amitriptyline HCl 50 MG Oral Tablet (Elavil)Indication s:Cervicalgia,Depr ession with anxiety,Degenerati on of cervical intervertebral disc TAKE ONE TABLET BY MOUTH AT BEDTIME EVERY DAY 90 Tablet 3 3 12/17/19 24 Active busPIRone HCl 10 MG Oral Tablet (Buspar) TAKE ONE TABLET BY MOUTH EVERY MORNING AND AT BEDTIME 180 Tablet 3 3 11/06/19 24 Active Omeprazole 20 MG Oral Capsule Delayed Release (PriLOSEC) TAKE 1 CAPSULE BY MOUTH 2 TIMES A DAY, 30 MINUTES BEFORE MORNING AND EVENING MEALS 180 Capsule 1 3 01/04/20 24 Active tiZANidine HCl 4 MG Oral Tablet (Zanaflex) Take 2-3 tablets at bedtime. 90 Tablet 11 3 Active Fluticasone Propionate 50 MCG/ACT Nasal Suspension (Flonase)Indicatio ns:Dysfunction of right eustachian tube Administer 2 Sprays into each nostril in the morning. 16 g 2 3 Active Ondansetron 4 MG Oral Tablet Disintegrating (Zofran)Indication s:Intractable migraine with aura with status migrainosus TAKE 1-2 TABLETS BY MOUTH EVERY 8 HOURS NEEDED FOR RELIEF OF NAUSEA 270 Tablet 0 4 07/08/19 25 Active Warfarin Sodium 5 MG Oral Tablet (Coumadin) TAKE ONE-HALF TO ONE TABLET BY MOUTH ONCE DAILY, OR DIRECTED BY COUMADIN CLINIC 90 Tablet 0 4 07/19/19 25 Active Linzess 290 MCG Oral Capsule (linaCLOtide) Take 1 Capsule by mouth daily before breakfast. 90 Capsule 3 4 Active Metoclopramide HCl 5 MG Oral Tablet (Reglan) TAKE ONE TO TWO TABLETS BY MOUTH AT START OF HEADACHE FOR NAUSEA AND HEAD PAIN DIRECTED. TAKE UP TO THREE DAYS PER WEEK 90 Tablet 3 4 08/30/19 25 Active Furosemide 20 MG Oral Tablet (Lasix)Indications :Bilateral lower extremity edema TAKE ONE TABLET BY MOUTH EVERY DAY IN THE MORNING 90 Tablet 1 4 08/28/19 25 Active Zolpidem Tartrate ER 12.5 MG Oral Tablet Extended ReleaseIndications :Primary insomnia Take one tablet by mouth every night at bedtime 30 Tablet 5 4 Active Eletriptan Hydrobromide 40 MG Oral Tablet (Relpax)Indication s:Intractable chronic migraine without aura and without status migrainosus,Cervic algia Take one half to one tablet by mouth at start of headache; may repeat once after two hours. Take up to 2 days a week. 48 Tablet 1 4 Active DULoxetine HCl 30 MG Oral Capsule Delayed Release Particles (Cymbalta) TAKE 1 CAPSULE BY MOUTH EVERY MORNING. do not cut, crush or chew 90 Capsule 1 4 09/27/19 24 Discontinued Galcanezumab-gnlm 120 MG/ML Subcutaneous Solution Auto-injector (Emgality) Inject 120 mg under the skin once monthly. 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 SHIN RESEARCH OTHER*[id number] 02/03/2006 Anxiety state 08/07/2005 AGORAPHOBIA 08/07/2005 Class 2 obesity without seri ous comorbidity with body mass index (BMI) of 39.0 to 39.9 in adult 04/22/2000 Overview: Per Obesity Taxonomy documented as of this encounter (statuses as of 10/07/2023) Resolved Problems Problem Noted Date Diagnosed Date Resolved Date Depression, unspecified 07/23/202306/26 Food insecurity 06/05/2021 08/08/2022 [...] as of this encounter (statuses as of 10/07/2023) Immunizations Name Administration Dates Next Due 08/07/2016, [...] encounter Miscellaneous Notes * Telephone Encounter - Placido Brown LPN - 10/02/2023 9:23 AM EDT Emgality Re Auth sen to PreCert team. * Telephone Encounter - Twyla Castorena OSA - 09/27/2023 1:14 PM EDT Per [facility] they need documentation of improvement to approve Emgality. Please advise - ty * Telephone Encounter - Jose L Fall preschool director - 09/26/2023 10:05 AM EDT New or re-auth: Re-auth Patient Ashley Morales needs a prior authorization for a medication through their [facility] insurance. Medication: Emgality Formulation: 120mg prefilled pen Dosage: 1ml for 30ds ID: [id number] [id number] PCN:nvtd Target ship date is n/a. Thank you very much, Johanne Fall Electric Motor And Generator Assembler, [facility] 09/26/2023 10:06 AM documented in this encounter Plan of Treatment Upcoming Encounters Date Type Department Care Team (Late st Contact Info) Description 10/08/2023 10:15 AM EDT Imaging Radiology [facility] 1st [facility], [address] [place] [address] 10/14/2023 6:30 AM EDT Anticoagulation Pharmacy Call Center [address] [facility] [place] [address] [facility] 58 60 [facility] [place] [address] 10/15/2023 11:40 AM EDT Office Visit Family [facility] [address] [place] [facility] [phone] Jessee Wisdom MD [address] [place], [place] [address] 01/21/2024 10:30 AM EDT Office Visit Gastroenterology, [facility] [address] [facility] [address] Annabelle Ramirez CRNP [address] [facility] [place] [address] 09/14/2024 10:40 AM EDT Telemedicine Neurology, [place] [address] [place] [address] Michelle Roth MD [address] [place] [address] Scheduled Procedures Name Priority Associated Diagnoses Date/Ti [...] this encounter Medical Devices Implanted Type Area Manager Pool Device Identifier Shelf Expiration Date Model / Serial / Lot Alloderm 2x4cm [id number] (8 Units) - [id number] - [id number] Implanted:Qty: 8 on 2015 by David Rosado [place] [facility] [place] - Human N/A: Esophagus [employer] 10/21/2016 [id number] / [id number] / [id number] Stent Esoph Endomaxx 24n351 - [id number] Implanted:Qty: 1 on 07/09/2013 [place] [facility] [place] N/A: Esophagus [employer] 07/09/2015 KAIDEN-2315 / / [id number] Stent Esoph Endomaxx [id number] - [id number] Implanted:Qty: 1 on 12/08/2013 at [place] [facility] [place] [employer] 06/23/2016 KAIDEN-1915 / / [id number] Stent Esoph Endomaxx [id number] - [id number] Implanted:Qty: 1 on 10/19/2014 by David Rosado MD at [place] [facility] [place] N/A: Esophagus [employer] 05/23/2017 KAIDEN-2315 / / [id number] Stent Wallflex Esophogeal 28x1 - [id number] - [id number] Implanted:Qty: 1 on 2015 by David Rosado MD at [place] [facility] [place] N/A: Esophagus [employer] ENDOSCOPY 06/23/2016 [id number] / [id number] / [id number] Stent Wallflex 27 Mm X 22 Mm 6512 Implanted:Qty: 1 on 2015 by David Rosado MD at [place] [facility] [place] N/A: Esophagus [employer] : ENDOSCOPY [id number] / / Stent Eso Gw [id number] [id number] - [id number] Implanted:Qty: 1 on 02/16/2015 by David Rosado MD at [place] [facility] [place] N/A: Esophagus [employer] 04/23/2017 [id number] / / [id number] Screw Ti Locking 1.8mm 497.78 - [id number] Implanted:Qty: 8 on 09/27/2021 by Messi Doll MD at [place] [facility] [place] Right: Spine Cervical SYNTHES 497.78 / / Screw Ti Expans 4.35mm 487.054 - [id number] Implanted:Qty: 8 on 09/27/2021 by Messi Doll MD at [place] [facility] [place] Right: Spine Cervical SYNTHES 487.054 / / Plate Cslp 487.355 - [id number] Implanted:Qty: 1 on 09/27/2021 by Messi Doll MD at [place] [facility] [place] Right: Spine Cervical SYNTHES 487.355 / / Cervical Vertigraft 5x7 - [id number] - [id number] Implanted:Qty: 1 on 09/27/2021 by Messi Doll MD at [place] [facility] [place] Right: Spine Cervical LIF[employer]ET 01/23/2026 [id number] / [id number] 086 / [id number] Cervical Vertigraft 6x8 - [id number] - [id number] Implanted:Qty: 1 on 09/27/2021 by Messi Doll MD at [place] [facility] [place] Right: Spine Cervical [employer] 11/10/2025 [id number] / [id number] [id number] / [id number] Cervical Vertigraft 5x7 - [id number] - [id number] Implanted:Qty: 1 on 09/27/2021 by Messi Doll MD at [place] [facility] [place] Right: Spine Cervical [employer] 04/09/2026 FK9E-G97D / [id number] 091 / [id number] documented as of this encounter Advance [...] the patient have Health Care Power of Manufacturing Engineering Director? No Full Code 01/12/2015 10:35 PM 01/21/2015 4:44 PM Question Answer Comments Discussion of Advance Directives occurred with: Not Discussed Full Code 12/22/2014 4:26 AM 12/25/2014 5:53 PM This or nu reflects the patients wishes and were consensually agreed upon. Question Answer Comments Discussion of Advance Directives occurred with: Patient Care Teams Invoice Coder Relationship Specialty Start Date End Date Jessee Wisdom MD [address] [place] [address] PCP - General Family Medicine 06/20/17 documented as of this encounter
--- OUTSIDE RECORDS SUMMARY | 2023-10-28 10:23 | External Medical Summary | Summary of Care ---
Author Name Unknown Organization [facility] Address [address] [place] [address] Phone [phone] Care Team Providers Care Director Organizational Name Role Phone Jessee Wisdom MD Primary Care Provider +1- [phone] Reason for Visit * Reason Onset Date Comments Pre Cert/Prior Auth 10/02/2023 Emgality Re Auth Encounter Details Date Type Department Care Team (Late st Contact Info) Description 10/02/2023 Telephone Neurology, [place] [address] [place] [address] Michelle Roth MD [address] [place] [address] Pre Cert/Prior Auth (Emgality Re Auth) Allergies Active Allergy Reactions Criticality Noted Date [...] DAYS PER WEEK 90 Tablet 3 08/30/2023 Active Furosemide 20 MG Oral Tablet (Lasix)Indications: Bilateral lower extremity edema TAKE ONE TABLET BY MOUTH EVERY DAY IN THE MORNING 90 Tablet 1 08/28/2023 Active Zolpidem Tartrate ER 12.5 MG Oral [...] RELIEF OF NAUSEA 270 Tablet 0 07/09/2023 4 Discontinu ed(Refill) documented as of this [...] Depression with anxiety 12/25/2014 Constipation 12/11/2013 terminal 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 use of 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 1 08/19/2012 Intestinal postoperative nonabsorption 3 Gastric bypass status for obesity 02/19/2013 Dysphagia 10/27/2012 Degeneration of cervical intervertebral disc 03/2011 Insomnia 08/31/2009 Overview: ICD-10 update of inactive term 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 Before starting Emgality how many headaches/ migraines did you have in 30days...AN AVERAGE OF 20DAYS Since starting Emgality how many headaches/ migraines do you have now in 30days....ON AVERAGE 4/5 DAYS Before Emgality have long did your head pain last? ....2-4 DAYS Since starting Emgality how long does your head pain last now? ....UP TO A DAY On a scale of 1-10 before Emgality how painful was your head pain?.... 7-9 On a scale of 1-10 since Emgality how painful is your head pain?.... 4-5 Office Information: Prescriber: Dr. Roth documented in this encounter Plan of Treatment Upcoming Encounters Date Type Department Care Team (Late st Contact Info) Description 10/08/2023 10:15 AM EDT Imaging Radiology [facility] [address] [place] [address] 10/14/2023 6:30 AM EDT Anticoagulation Pharmacy Call Center [place] [address] [place] [address] [facility] 58 60 [facility] [place] [address] 10/15/2023 11:40 AM EDT Office Visit [place] [address] [place] [address] Jessee Wisdom MD [address] [place] [address] 01/21/2024 10:30 AM EDT Office Visit [facility]astroenterology, [facility] [address] [facility] [address] Ananbelle Ramirez CRNP [address] [place] [address] 09/14/2024 10:40 AM EDT Telemedicine Neurology, [place] [address] [place], [place] [phone] Michelle Roth MD [address] [place], [place] [phone] Scheduled Procedures Name Priority Associated Diagnoses Date/Ti [...] this encounter Medical Devices Implanted Type Area Knot Borer Device Identifier Shelf Expiration Date Model / Serial / Lot Alloderm 2x4cm [id number] (8 Units) - [id number] - [id number] Implanted:Qty: 8 on 2015 by David Rosado MD [place] [facility] [place] - Human N/A: Esophagus [employer] 10/21/2016 [id number] / [id number] / [id number] Stent Esoph Endomaxx 38g275 - [id number] Implanted:Qty: 1 on 07/09/2013 [place] [facility] [place] N/A: Esophagus [employer] 07/09/2015 KAIDEN-2315 / / [id number] Stent Esoph Endomaxx 66t918 - [id number] Implanted:Qty: 1 on 12/08/2013 at [place] [facility] [place] [employer] 06/23/2016 KAIDEN-1915 / / [id number] Stent Esoph Endomaxx 86z910 - [id number] Implanted:Qty: 1 on 10/19/2014 by David Rosado MD at [place] [facility] [place] N/A: Esophagus [employer] 05/23/2017 KAIDEN-2315 / / [id number] Stent Wallflex Esophogeal 28x1 - [id number] - [id number] Implanted:Qty: 1 on 2015 by David Rosado MD at [place] [facility] [place] N/A: Esophagus [employer] : ENDOSCOPY 06/23/2016 [id number] / [id number] / [id number] Stent Wallflex 27 Mm X 22 Mm 6512 Implanted:Qty: 1 on 2015 by David Rosado MD at [place] [facility] [place] N/A: Esophagus [employer] : ENDOSCOPY [id number] / / Stent Eso Gw [id number] [id number] - [id number] Implanted:Qty: 1 on 02/16/2015 by David Rosado MD at [place] [facility] [place] N/A: Esophagus [employer] 04/23/2017 [id number] / / [id number] Screw Ti Locking 1.8mm 497.78 - [id number] Implanted:Qty: 8 on 09/27/2021 by Messi Doll MD at [place] [facility] [place] Right: Spine Cervical SYNTHES 497.78 / / Screw Ti Expans 4.35mm 487.054 - [id number] Implanted:Qty: 8 on 09/27/2021 by Messi oDll MD at [place] [facility] [place] Right: Spine Cervical SYNTHES 487.054 / / Plate Cslp 487.355 - [id number] Implanted:Qty: 1 on 09/27/2021 by Messi Doll MD at [place] [facility] [place] Right: Spine Cervical SYNTHES 487.355 / / Cervical Vertigraft 5x7 - [id number] - [id number] Implanted:Qty: 1 on 09/27/2021 by Messi Doll MD at [place] [facility] [place] Right: Spine Cervical LIF[employer]ET 01/23/2026 WY0V-[id number] / [id number] 086 [id number] Cervical Vertigraft 6x8 - [id number] - [id number] Implanted:Qty: 1 on 09/27/2021 by Messi Doll MD at [place] [facility] [place] Right: Spine Cervical LIF[employer]ET 11/10/2025 [id number] / [id number] [id number] [id number] Cervical Vertigraft 5x7 - [id number] - [id number] Implanted:Qty: 1 on 09/27/2021 by Messi Doll MD at [place] [facility] [place] Right: Spine Cervical [employer]IF[employer]ET 04/09/2026 [id number] / [id number] [id number] documented as of this encounter Advance [...] the patient have Health Care Power of Ladies Suit Operator? No Full Code 01/12/2015 10:35 PM 01/21/2015 4:44 PM Question Answer Comments Discussion of Advance Directives occurred with: Not Discussed Full Code 12/22/2014 4:26 AM 12/25/2014 5:53 PM This or nu reflects the patients wishes and were consensually agreed upon. Question Answer Comments Discussion of Advance Directives occurred with: Patient Care Teams Director Organizational Relationship Specialty Start Date End Date Jessee Wisdom MD [address] [facility] [place] [place] [address] PCP - General Family Medicine 06/20/17 documented as of this encounter
--- OUTSIDE RECORDS SUMMARY | 2023-10-28 10:23 | External Medical Summary | Summary of Care ---
Author Name Unknown Organization [facility] Address [address] [place] [address] Phone [phone] Care Team Providers Care Crystal Growing Technician Name Role Phone Jessee Wisdom MD Primary Care Provider +1- [phone] Reason for Visit * Reason Onset Date Comments Advice 10/09/2023 Migraine Encounter Details Date Type Department Care Team (Late st Contact Info) Description 10/09/2023 Telephone Neurology, [place] [address] [place] [address] Services, [facility] [address] [place] [address] Advice (Migraine) Allergies Active Allergy Reactions Criticality Noted Date Comments Ciprofloxacin Nausea/vomiting 01/04/2023 Clindamycin Other (Please comment) 09/19/2020 Stomach pain Latex Rash 07/23/2006 Prolonged exposure only Morphine Other (Please comment) High 02/06/2020 Sulfa Antibiotics Hives 05/05/2004 documented as of this encounter (statuses as of 10/11/2023) Medications Medication Sig Dispensed Refills Start Date [...] OF NAUSEA 270 Tablet 0 10/07/2023 Active documented as of this encounter (statuses as of 10/11/2023) Active Problems Problem Noted Date Diagnosed Date [...] 12/25/2014 Depression with anxiety 12/25/2014 Constipation 12/11/2013 [facility] current use of 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 1 08/19/2012 Intestinal postoperative nonabsorption 3 Gastric bypass status for obesity 02/19/2013 Dysphagia 10/27/2012 Degeneration of cervical intervertebral disc 03/2011 Insomnia 08/31/2009 Overview: ICD-10 update of inactive term 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 SHIN RESEARCH OTHER*[id number] 02/03/2006 Anxiety state 08/07/2005 AGORAPHOBIA 08/07/2005 Class 2 obesity without seri ous comorbidity with body mass index (BMI) of 39.0 to 39.9 in adult 04/22/2000 Overview: Per Obesity Taxonomy documented as of this encounter (statuses as of 10/11/2023) Resolved Problems Problem Noted Date Diagnosed Date [...] as of this encounter (statuses as of 10/11/2023) Immunizations Name Administration Dates Next Due 08/07/2016, [...] encounter Miscellaneous Notes * Telephone Encounter - Sky Ryan OSA - 10/09/2023 11:10 AM EDT Requested Information from caller: Who is calling patient Provider patient is established with: Dr. Roth What is the concern or issue they are having: Pt calling stating she has a migraine that will not break How long has the issue been going on: since Saturday Any additional details to add: no Pts phone number for nurse to call back: [phone] If forms need to be faxed- Please provide fax number: n/a documented in this encounter Plan of Treatment Upcoming Encounters Date Type Department Care Team (Late st Contact Info) Description 10/14/2023 6:30 AM EDT Anticoagulation Pharmacy Call Center [address] [place] [address] [facility] [address] [place] [id number] 10/15/2023 11:40 AM EDT Office Visit [facility] [address] [place] [phone] Jessee Wisdom MD [address] [place] [address] 01/21/2024 10:30 AM EDT Office [facility], [facility] [place] [address] Annabelle Ramirez CRNP [address] [place] [address] 09/14/2024 10:40 AM EDT Telemedicine Neurology, [place] [address] [place] [address] Michelle Roth MD [address], [place] [phone] Scheduled Procedures Name Priority Associated Diagnoses Date/Ti [...] this encounter Medical Devices Implanted Type Area Mobile Home Mechanic Device Identifier Shelf Expiration Date Model / Serial / Lot Alloderm 2x4cm [id number] (8 Units) - [id number] - [id number] Implanted:Qty: 8 on 2015 by David Rosado MD at [facility] Tissue - Human N/A: Esophagus hint [employer] 10/21/2016 [id number] / [id number] / [id number] Stent Esoph Endomaxx 98b986 - [id number] Implanted:Qty: 1 on 07/09/2013 at [place] [facility] N/A: Esophagus [employer] 07/09/2015 KAIDEN-2315 / / [id number] Stent Esoph Endomaxx 72i292 - [id number] Implanted:Qty: 1 on 12/08/2013 at [facility] [employer] 06/23/2016 KAIDEN-1915 / / [id number] Stent Esoph Endomaxx 62x108 - [id number] Implanted:Qty: 1 on 10/19/2014 by David Rosado MD at [facility] N/A: Esophagus [employer] 05/23/2017 KAIDEN-2315 / / [id number] Stent Wallflex Esophogeal 28x1 - [id number] - [id number] Implanted:Qty: 1 on 2015 by David Rosado MD at [facility] N/A: Esophagus [employer] : ENDOSCOPY 06/23/2016 [id number] / [id number] / [id number] Stent Wallflex 27 Mm X 22 Mm [id number] Implanted:Qty: 1 on 2015 by David Rosado MD at [facility] N/A: Esophagus [employer] : ENDOSCOPY [id number] / / Stent Eso Gw 98o173 [id number] - [id number] Implanted:Qty: 1 on 02/16/2015 by David Rosado MD at [facility] N/A: Esophagus [employer] 04/23/2017 [id number] / / [id number] Screw Ti Locking 1.8mm 497.78 - [id number] Implanted:Qty: 8 on 09/27/2021 by Messi Doll MD at [facility] Right: Spine Cervical SYNTHES 497.78 / / Screw Ti Expans 4.35mm 487.054 - [id number] Implanted:Qty: 8 on 09/27/2021 by Messi Doll MD at [facility] Right: Spine Cervical SYNTHES 487.054 / / Plate Cslp 487.355 - [id number] Implanted:Qty: 1 on 09/27/2021 by Messi Doll MD at [facility] Right: Spine Cervical SYNTHES 487.355 / / Cervical Vertigraft 5x7 - [id number] - [id number] Implanted:Qty: 1 on 09/27/2021 by Messi Doll MD at [facility] Right: Spine Cervical LIFENET 01/23/2026 [id number] / [id number] 086 / [id number] Cervical Vertigraft 6x8 - [id number] - [id number] Implanted:Qty: 1 on 09/27/2021 by Messi Doll MD at [facility] Right: Spine Cervical LIFENET 11/10/2025 [id number] / [id number] [id number] / [id number] [id number] Cervical Vertigraft 5x7 - [id number] - [id number] Implanted:Qty: 1 on 09/27/2021 by Messi Doll MD at [facility] Right: Spine Cervical LIFENET 04/09/2026 [id number] / [id number] [id number] / [id number] documented as of this encounter Advance [...] the patient have Health Care Power of Dental Appliance Mechanic? No Full Code 01/12/2015 10:35 PM 01/21/2015 4:44 PM Question Answer Comments Discussion of Advance Directives occurred with: Not Discussed Full Code 12/22/2014 4:26 AM 12/25/2014 5:53 PM This or nu reflects the patients wishes and were consensually agreed upon. Question Answer Comments Discussion of Advance Directives occurred with: Patient Care Teams Crystal Growing Technician Relationship Specialty Start Date End Date Jessee Wisdom MD [address] [place] [address] PCP - General Family Medicine 06/20/17 documented as of this encounter
--- OUTSIDE RECORDS SUMMARY | 2023-10-28 10:23 | External Medical Summary | Summary of Care ---
Author Name Unknown Organization [facility] Address [address] [place] [address] Phone [phone] Care Team Providers Care C++ Quant Developer Name Role Phone Jessee Wisdom MD Primary Care Provider +1- [phone] Reason for Visit * Reason Comments Medication Refill Encounter Details Date Type Department Care Team (Late st Contact Info) Description [facility] [address] [place], [place] [phone] Michelle Roth MD [address] [place] [address] Intractable migraine with aura with [...] 5 Active Furosemide 20 MG Oral Tablet (Lasix)Indications: [...] OF NAUSEA 270 Tablet 0 10/07/2023 Active Ondansetron 4 MG Oral Tablet Disintegrating [...] 12/25/2014 Depression with anxiety 12/25/2014 Constipation 12/11/2013 alf current use of 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 1 08/19/2012 Intestinal postoperative nonabsorption 3 Gastric bypass status for obesity 02/19/2013 Dysphagia 10/27/2012 Degeneration of cervical intervertebral disc 03/2011 Insomnia 08/31/2009 Overview: ICD-10 update of inactive term 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 SHIN RESEARCH OTHER*[id number] 02/03/2006 Anxiety state 08/07/2005 AGORAPHOBIA 08/07/2005 Class [...] encounter Miscellaneous Notes * Telephone Encounter - Dale Burciaga DO - 10/07/2023 12:59 PM EDTSigned Prescriptions: Disp Refills Ondansetron 4 MG Oral Tablet Disintegratin*270 Ta*0 Sig: TAKE 1-2 TABLETS BY MOUTH EVERY 8 HOURS NEEDED FOR RELIEF OF NAUSEA Authorizing Provider: DALE BURCIAGA * Telephone Encounter - Beverly Alexander LPN - 10/07/2023 11:49 AM EDTPending Prescriptions: Disp Refills Ondansetron 4 MG Oral Tablet Disintegratin*270 Ta*0 Sig: TAKE 1-2 TABLETS BY MOUTH EVERY 8 HOURS NEEDED FOR RELIEF OF NAUSEA * Telephone Encounter - Beverly Alexander LPN - 10/07/2023 11:48 AM EDTPending Prescriptions: Disp Refills Ondansetron 4 MG Oral Tablet Disintegratin*270 Ta*0 Sig: TAKE 1-2 TABLETS BY MOUTH EVERY 8 HOURS NEEDED FOR RELIEF OF NAUSEA * Telephone Encounter - Ish Osuna [facility] - 10/07/2023 11:12 AM EDTPending Prescriptions: Disp Refills Ondansetron 4 MG Oral Tablet Disintegratin*270 Ta*0 Sig: TAKE 1-2 TABLETS BY MOUTH EVERY 8 HOURS NEEDED FOR RELIEF OF NAUSEA * Telephone Encounter - Zara Treviño CPhT - 10/07/2023 10:27 AM EDT Did you pend patient's preferred pharmacy and medication before forwarding?yes Pharmacy: [facility] Pending Prescriptions: Disp Refills Ondansetron 4 MG Oral Tablet Disintegrati*270 Ta*0 Sig: TAKE 1-2 TABLETS BY MOUTH EVERY 8 HOURS NEEDED FOR RELIEF OF NAUSEA Last Visit: 02/27/2013 (in office), Visit date not found (telemedicine) Next Visit: 09/14/2024 If no future appointments scheduled, and last appointment is greater than a year ago, please schedule patient for a follow-up appointment Last date the medication was ordered: 07/09/23 Is this request for a controlled substance?No [...] Description 10/08/2023 10:15 AM EDT Imaging Radiology [facility] 1[address] [facility] [address] [facility] [place] [address] 10/14/2023 6:30 AM EDT Anticoagulation Pharmacy Call Center [place] [address] [facility] [place] [address] [facility] [address] [facility] [place] [address] 10/15/2023 11:40 AM EDT Office Visit [facility] [address] [place] [address] Jessee Wisdom MD [address] [place] [address] 01/21/2024 10:30 AM EDT Office Visit Gastroenterology, [facility] [address] [facility] [address] Annabelle Ramirez CRNP [address] [place] [address] 09/14/2024 10:40 AM EDT Telemedicine Neurology, [place] [address] [place], [place] [address] Michelle Roth MD [address] [place] [address] Scheduled Procedures Name Priority Associated Diagnoses Date/Ti [...] this encounter Medical Devices Implanted Type Area Torpedo Specialist Device Identifier Shelf Expiration Date Model / Serial / Lot Alloderm 2x4cm [id number] (8 Units) - [id number] - [id number] Implanted:Qty: 8 on 2015 [place] [facility] [place] - Human N/A: Esophagus [employer] 10/21/2016 [id number] / [id number] / [id number] Stent Esoph Endomaxx 22v961 - [id number] Implanted:Qty: 1 on 07/09/2013 [place] [facility] [place]/A: Esophagus [employer] 07/09/2015 KAIDEN-2315 / / [id number] Stent Esoph Endomaxx 74i664 - [id number] Implanted:Qty: 1 on 12/08/2013 [place] [facility] [employer] 06/23/2016 KAIDEN-1915 / / [id number] Stent Esoph Endomaxx 12d603 - [id number] Implanted:Qty: 1 on 10/19/2014 by [place] Rosado [place] [facility] [place]/A: Esophagus [employer] 05/23/2017 KAIDEN-2315 / / [id number] Stent Wallflex Esophogeal 28x1 - [id number] - [id number] Implanted:Qty: 1 on 2015 by [place]ado [place] [facility] N/A: Esophagus [employer] : ENDOSCOPY 06/23/2016 [id number] / [id number] / [id number] Stent Wallflex 27 Mm X 22 Mm [id number] Implanted:Qty: 1 on 2015 by [place] Rosado [place] [facility] N/A: Esophagus [employer] : ENDOSCOPY [id number] / / Stent Eso Gw 04f148 39585-978 - [id number] Implanted:Qty: 1 on 02/16/2015 by David Rosado MD [place] [facility] N/A: Esophagus [employer] 04/23/2017 41073-510 / / [id number] Screw Ti Locking 1.8mm 497.78 - [id number] Implanted:Qty: 8 on 09/27/2021 by Messi Doll MD [place] [facility] Right: Spine Cervical SYNTHES 497.78 / / Screw Ti Expans 4.35mm 487.054 - [id number] Implanted:Qty: 8 on 09/27/2021 by Messi Doll MD at [place] [facility] Right: Spine Cervical SYNTHES 487.054 / / Plate Cslp 487.355 - [id number] Implanted:Qty: 1 on 09/27/2021 by Messi Doll MD at [place] [facility] Right: Spine Cervical SYNTHES 487.355 / / Cervical Vertigraft 5x7 - [id number] - [id number] Implanted:Qty: 1 on 09/27/2021 by Messi Doll MD [place] [facility] [place]: Spine Cervical LIFENET 01/23/2026 [id number] / [id number] 086 / [id number] [id number] Cervical Vertigraft 6x8 - [id number] - [id number] Implanted:Qty: 1 on 09/27/2021 by Messi Doll MD at [place] [facility] Right: Spine Cervical LIF[employer]ET 11/10/2025 [id number] / [id number] 053 / [id number] [id number] Cervical Vertigraft 5x7 - [id number] - [id number] Implanted:Qty: 1 on 09/27/2021 by Messi Doll MD [place] [facility] [place]: Spine Cervical [employer]IF[employer]ET 04/09/2026 [id number]-S44W / [id number] 091 / [id number] [id number] documented as of this encounter Visit [...] the patient have Health Care Power of Guest Advisor? No Full Code 01/12/2015 10:35 PM 01/21/2015 4:44 PM Question Answer Comments Discussion of Advance Directives occurred with: Not Discussed Full Code 12/22/2014 4:26 AM 12/25/2014 5:53 PM This or nu reflects the patients wishes and were consensually agreed upon. Question Answer Comments Discussion of Advance Directives occurred with: Patient Care Teams C++ Quant Developer Relationship Specialty Start Date End Date Jessee Wisdom MD [address] [place] [address] PCP - General Family Medicine 06/20/17 documented as of this encounter
--- OUTSIDE RECORDS SUMMARY | 2023-10-28 10:23 | External Medical Summary | Summary of Care ---
Author Name Unknown Organization [facility] Address [address] [place] [address] Phone [phone] Care Team Providers Care Recycler Name Role Phone Jessee Wisdom MD Primary Care Provider +1- [phone] Reason for Visit * Reason Onset Date Comments Medication Refill 10/10/2023 Prednisone Encounter Details Date Type Department Care Team (Late st Contact Info) Description [facility] [address] [place], [place] [phone] Michelle Roth MD [address] [place] [address] Allergies Active Allergy Reactions Criticality Noted Date Comments Ciprofloxacin Nausea/vomiting 01/04/2023 Clindamycin Other (Please comment) 09/19/2020 Stomach pain Latex Rash 07/23/2006 Prolonged exposure only Morphine Other (Please comment) High 02/06/2020 Sulfa Antibiotics Hives 05/05/2004 documented as of this encounter (statuses as of 10/10/2023) Medications Medication Sig Dispensed Refills Start Date [...] then stop. 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 SHIN RESEARCH OTHER*[id number] 02/03/2006 Anxiety state 08/07/2005 AGORAPHOBIA 08/07/2005 Class 2 obesity without seri ous comorbidity with body mass index (BMI) of 39.0 to 39.9 in adult 04/22/2000 Overview: Per Obesity Taxonomy documented as of this encounter (statuses as of 10/10/2023) Resolved Problems Problem Noted Date Diagnosed Date [...] as of this encounter (statuses as of 10/10/2023) Immunizations Name Administration Dates Next Due 08/07/2016, [...] encounter Miscellaneous Notes * Telephone Encounter - Zac Nieto DO - 10/10/2023 4:53 PM EDT Signed Prescriptions: Disp Refills predniSONE 10 MG Oral Tablet (Deltasone) 42 Tab*0 Sig: Days 1-2 take 6 tabs by mouth in the morning, Days 3-4 take 5 tabs, Days 5-6 take 4 tabs, Days 7-8 take 3 tabs, Days 9-10 take 2 tabs, Days 11-12 take 1 tab then stop. Authorizing Provider: ZAC NIETO * Telephone Encounter - Placido Brown LPN - 10/10/2023 9:47 AM EDT Patient reporting severe 5 day migraine cycle. Last used Prednisone 12/2022. Please review, sign and send if you approve. documented in this encounter Plan of Treatment Upcoming Encounters Date Type Department Care Team (Late st Contact Info) Description 10/11/2023 11:30 AM EDT Imaging Radiology [address], [address] [place] [address] 10/14/2023 6:30 AM EDT Anticoagulation Pharmacy Call Center [address] [facility] [place] [address] [facility] [address] [facility] [place] [address] 10/15/2023 11:40 AM EDT Office Visit Family [facility] [address] [place] [facility] [place] [address] Jessee Wisdom MD [address], [place] [address] 01/21/2024 10:30 AM EDT Office Visit Gastroenterology, [facility] [address] [place] [address] Annabelle Ramirez CRNP [address] [facility] [address] 09/14/2024 10:40 AM EDT Telemedicine Neurology, [place] [address] [place] [address] Michelle Roth MD [address] [place], [place] [address] Scheduled Procedures Name Priority Associated Diagnoses Date/Ti [...] encounter Medical Devices Implanted Type Area Senior Principal Process Engineer Device Identifier Shelf Expiration Date Model / Serial / Lot Alloderm 2x4cm 106944 (8 Units) - [id number] - [id number] Implanted:Qty: 8 on 2015 by David Rosado MD at [place] [facility] Tissue - Human N/A: Esophagus [employer] 10/21/2016 [id number] / [id number] / [id number] Stent Esoph Endomaxx 09a348 - [id number] Implanted:Qty: 1 on 07/09/2013 at [place] [facility] N/A: Esophagus [employer] 07/09/2015 KAIDEN-2315 / / [id number] Stent Esoph Endomaxx 00o741 - [id number] Implanted:Qty: 1 on 12/08/2013 at [place] [facility] [employer] 06/23/2016 KAIDEN-1915 / / [id number] Stent Esoph Endomaxx 94u189 - [id number] Implanted:Qty: 1 on 10/19/2014 by David Rosado MD at [place] [facility] N/A: Esophagus [employer] 05/23/2017 KAIDEN-2315 / / [id number] Stent Wallflex Esophogeal 28x1 - [id number] - [id number] Implanted:Qty: 1 on 2015 by David Rosado MD at [place] [facility] N/A: Esophagus [employer] : ENDOSCOPY 06/23/2016 [id number] / [id number] / [id number] Stent Wallflex 27 Mm X 22 Mm 6512 Implanted:Qty: 1 on 2015 by David Rosado MD at [place] [facility] N/A: Esophagus [employer] : ENDOSCOPY [id number] / / Stent Eso Gw 92b334 [id number] - [id number] Implanted:Qty: 1 on 02/16/2015 by David Rosado MD at [place] [facility] N/A: Esophagus [employer] 04/23/2017 [id number] / / [id number] Screw Ti Locking 1.8mm 497.78 - [id number] Implanted:Qty: 8 on 09/27/2021 by Messi Doll MD at [place] [facility] Right: Spine Cervical SYNTHES 497.78 / / Screw Ti Expans 4.35mm 487.054 - [id number] Implanted:Qty: 8 on 09/27/2021 by Messi Doll MD at [place] [facility] Right: Spine Cervical SYNTHES 487.054 / / Plate Cslp 487.355 - [id number] Implanted:Qty: 1 on 09/27/2021 by Messi Doll MD at [place] [facility] Right: Spine Cervical SYNTHES 487.355 / / Cervical Vertigraft 5x7 - [id number] - [id number] Implanted:Qty: 1 on 09/27/2021 by Messi Doll MD at [place] [facility] Right: Spine Cervical LIF[employer]ET 01/23/2026 BA0I-L33N / [id number] 086 / [id number] [id number] Cervical Vertigraft 6x8 - [id number] - [id number] Implanted:Qty: 1 on 09/27/2021 by Messi Doll MD at [place] [facility] Right: Spine Cervical [employer] 11/10/2025 [id number]-M67E / [id number] 053 / [id number] Cervical Vertigraft 5x7 - [id number] - [id number] Implanted:Qty: 1 on 09/27/2021 by Messi Doll MD at [place] [facility] Right: Spine Cervical [employer] 04/09/2026 [id number] / [id number] [id number] / [id number] documented as of this encounter Advance [...] the patient have Health Care Power of Intervention Specialist? No Full Code 01/12/2015 10:35 PM 01/21/2015 4:44 PM Question Answer Comments Discussion of Advance Directives occurred with: Not Discussed Full Code 12/22/2014 4:26 AM 12/25/2014 5:53 PM This or nu reflects the patients wishes and were consensually agreed upon. Question Answer Comments Discussion of Advance Directives occurred with: Patient Care Teams Recycler Relationship Specialty Start Date End Date Jessee Wisdom MD [address] [place] [address] PCP - General Family Medicine 06/20/17 documented as of this encounter
--- OUTSIDE RECORDS SUMMARY | 2023-10-28 10:24 | External Medical Summary | Summary of Care ---
Author Name Unknown Organization [facility] Address [address] [place] [address] Phone [phone] Care Team Providers Care Home And Family Living Professor Name Role Phone Jessee Wisdom MD Primary Care Provider +1- [phone] Reason for Visit * Reason Onset Date Comments Pre Cert/Prior Auth 10/02/2023 Emgality Re Auth Encounter Details Date Type Department Care Team (Late st Contact Info) Description 10/02/2023 Telephone Neurology, [place] [address] [place] [address] Michelle Roth MD [address] [place] [address] Pre Cert/Prior Auth (Emgality Re Auth) Allergies Active Allergy Reactions Criticality Noted Date Comments Ciprofloxacin Nausea/vomiting 01/04/2023 Clindamycin Other (Please comment) 09/19/2020 Stomach pain Latex Rash 07/23/2006 Prolonged exposure only Morphine Other (Please comment) High 02/06/2020 Sulfa Antibiotics Hives 05/05/2004 documented as of this encounter (statuses as of 10/02/2023) Medications Medication Sig Dispensed Refills Start Date [...] NAUSEA 270 Tablet 0 07/09/2023 5 Active Warfarin Sodium 5 MG Oral [...] 08/30/2023 Active Furosemide 20 MG Oral Tablet (Lasix)Indications:B [...] Every Month. 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 [facility]EARCH OTHER*[id number] 02/03/2006 Anxiety state 08/07/2005 AGORAPHOBIA 08/07/2005 Class 2 obesity without seri ous comorbidity with body mass index (BMI) of 39.0 to 39.9 in adult 04/22/2000 Overview: Per Obesity Taxonomy documented as of this encounter (statuses as of 10/02/2023) Resolved Problems Problem Noted Date Diagnosed Date [...] as of this encounter (statuses as of 10/02/2023) Immunizations Name Administration Dates Next Due 08/07/2016, [...] Self- administered - route pre-cert request to [id number] See corresponding visit note(s) for additional supporting [...] Care Team (Late st Contact Info) Description 10/07/2023 6:30 AM EDT Anticoagulation Pharmacy Call Center [address] [facility] [place] [address] [facility] [address] [facility] [place] [address] 10/08/2023 10:15 AM EDT [facility] [address] [place] [address] 10/09/2023 9:30 AM EDT Office Visit Gastroenterology, [facility] [address] [place] [address] Annabelle Ramirez CRNP [address] [facility] [place] [address] 10/15/2023 11:40 AM EDT Office Visit [facility] [address] [place] [phone] Jessee Wisdom MD [address] [place] [address] 09/14/2024 10:40 AM EDT Telemedicine Neurology, [place] [address] [place] [address] Michelle Roth MD [address], [place] [phone] Scheduled Procedures Name Priority Associated Diagnoses Date/Ti [...] this encounter Medical Devices Implanted Type Area Teacher Private Device Identifier Shelf Expiration Date Model / Serial / Lot Alloderm 2x4cm [id number] (8 Units) - [id number] - [id number] Implanted:Qty: 8 on 2015 by David Rosado MD at [place] [facility] Tissue - Human N/A: Esophagus Zervant 10/21/2016 [id number] / [id number] / [id number] Stent Esoph Endomaxx 13b783 - [id number] Implanted:Qty: 1 on 07/09/2013 at OR [facility] N/A: Esophagus [employer] 07/09/2015 KAIDEN-2315 / / [id number] Stent Esoph Endomaxx [id number] - [id number] Implanted:Qty: 1 on 12/08/2013 at OR [facility] [employer] 06/23/2016 [id number]-1915 / / [id number] Stent Esoph Endomaxx 25d768 - [id number] Implanted:Qty: 1 on 10/19/2014 by David Rosado MD at OR [facility] N/A: Esophagus [employer] 05/23/2017 KAIDEN-2315 / / [id number] Stent Wallflex Esophogeal 28x1 - [id number] - [id number] Implanted:Qty: 1 on 2015 by David Rosado MD at OR [facility] N/A: Esophagus [employer] : ENDOSCOPY 06/23/2016 [id number] / [id number] / [id number] Stent Wallflex 27 Mm X 22 Mm [id number] Implanted:Qty: 1 on 2015 by David Rosado MD at OR [facility] N/A: Esophagus [employer] : ENDOSCOPY [id number] / / Stent Eso Gw [id number] [id number] - [id number] Implanted:Qty: 1 on 02/16/2015 by David Rosado MD at OR [facility] N/A: Esophagus [employer] 04/23/2017 [id number] / / [id number] Screw Ti Locking 1.8mm 497.78 - [id number] Implanted:Qty: 8 on 09/27/2021 by Messi Doll MD at OR [facility] Right: Spine Cervical SYNTHES 497.78 / / Screw Ti Expans 4.35mm 487.054 - [id number] Implanted:Qty: 8 on 09/27/2021 by Messi Doll MD at OR [facility] Right: Spine Cervical SYNTHES 487.054 / / Plate Cslp 487.355 - [id number] Implanted:Qty: 1 on 09/27/2021 by Messi Doll MD at OR [facility] Right: Spine Cervical SYNTHES 487.355 / / Cervical Vertigraft 5x7 - [id number] - [id number] Implanted:Qty: 1 on 09/27/2021 by Messi Doll MD at OR [facility] Right: Spine Cervical LIFENET 01/23/2026 [id number] / [id number] [id number] / [id number] Cervical Vertigraft 6x8 - [id number] - [id number] Implanted:Qty: 1 on 09/27/2021 by Messi Doll MD at OR [facility] Right: Spine Cervical LIFENET 11/10/2025 [id number]-[id number] / [id number] [id number] / [id number] Cervical Vertigraft 5x7 - [id number] - [id number] Implanted:Qty: 1 on 09/27/2021 by Messi Doll MD at OR [facility] Right: Spine Cervical LIFENET 04/09/2026 CJ1G-[id number] / [id number] 091 / [id number] documented as of this encounter Advance [...] the patient have Health Care Power of Form Tamping Machine Operator? No Full Code 01/12/2015 10:35 PM 01/21/2015 4:44 PM Question Answer Comments Discussion of Advance Directives occurred with: Not Discussed Full Code 12/22/2014 4:26 AM 12/25/2014 5:53 PM This or nu reflects the patients wishes and were consensually agreed upon. Question Answer Comments Discussion of Advance Directives occurred with: Patient Care Teams Home And Family Living Professor Relationship Specialty Start Date End Date Jessee Wisdom MD [address] [place] [address] PCP - General Family Medicine 06/20/17 documented as of this encounter
--- OUTSIDE RECORDS SUMMARY | 2023-10-28 10:24 | External Medical Summary | Summary of Care ---
Author Name Unknown Organization [facility] Address [address] [place] [address] Phone [phone] Care Team Providers Care Human Resources Project Coordinator Name Role Phone Jessee Wisdom MD Primary Care Provider +1- [phone] Reason for Visit * Reason Onset Date Comments Precert In Process 09/26/2023 05 [facility] Emgality Encounter Details Date Type Department Care Team (Late st Contact Info) Description 09/26/2023 Telephone Neurology, [place] [address] [place] [address] Michelle Roth MD [address] [place] [address] [facility]... Allergies Active Allergy Reactions Criticality Noted Date Comments Ciprofloxacin Nausea/vomiting 01/04/2023 Clindamycin Other (Please comment) 09/19/2020 Stomach pain Latex Rash 07/23/2006 Prolonged exposure only Morphine Other (Please comment) High 02/06/2020 Sulfa Antibiotics Hives 05/05/2004 documented as of this encounter (statuses as of 10/04/2023) Medications Medication Sig Dispensed Refills Start Date [...] as of this encounter (statuses as of 10/04/2023) Active Problems Problem Noted Date Diagnosed Date [...] 12/25/2014 Depression with anxiety 12/25/2014 Constipation 12/11/2013 prison current use of 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 1 08/19/2012 Intestinal postoperative nonabsorption 3 Gastric bypass status for obesity 02/19/2013 Dysphagia 10/27/2012 Degeneration of cervical intervertebral disc 03/2011 Insomnia 08/31/2009 Overview: ICD-10 update of inactive term 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 Please advise - ty * Telephone Encounter - Jose L Fall wellness specialist - 09/26/2023 10:05 AM EDT New or re-auth: Re-auth Patient Ashley Morales needs a prior authorization for a medication through their [facility] insurance. Medication: Emgality Formulation: 120mg prefilled pen Dosage: 1ml for 30ds ID: [id number] BIN:[id number] PCN:nvtd Target ship date is n/a. Thank you very much, Johanne Fall Senior Sous Chef, [facility] 09/26/2023 10:06 AM documented in this encounter Plan of Treatment Upcoming Encounters Date Type Department Care Team (Late st Contact Info) Description 10/07/2023 6:30 AM EDT Anticoagulation Pharmacy Call Center [place] [address] [place] [address] [facility] [address] [place] [address] 10/08/2023 10:15 AM EDT Imaging Radiology [facility] 1st [facility] 132 [facility] [place] [address] 10/09/2023 9:30 AM EDT Office Visit Gastroenterology, [facility] 132 [facility] [place] [address] Annabelle Ramirez CRNP [address] [place] [address] 10/15/2023 11:40 AM EDT Office Visit Family [facility] [address] [place] [phone] Jessee Wisdom MD [address] [place] [address] 09/14/2024 10:40 AM EDT Telemedicine Neurology, [place] [address] [place] [address] Michelle Roth MD [address] [place], [place] [phone] Scheduled Procedures Name Priority Associated Diagnoses Date/Ti [...] this encounter Medical Devices Implanted Type Area Costuming Supervisor Device Identifier Shelf Expiration Date Model / Serial / Lot Alloderm 2x4cm [id number] (8 Units) - [id number] - [id number] Implanted:Qty: 8 on 2015 by David Rosado MD at OR [facility] Tissue - Human N/A: Esophagus OrbFlex 10/21/2016 [id number] / [id number] / [id number] Stent Esoph Endomaxx 66y244 - [id number] Implanted:Qty: 1 on 07/09/2013 at OR [facility] N/A: Esophagus [employer] 07/09/2015 KAIDEN-2315 / / [id number] Stent Esoph Endomaxx 25h032 - [id number] Implanted:Qty: 1 on 12/08/2013 at OR [facility] [employer] 06/23/2016 KAIDEN-1915 / / [id number] Stent Esoph Endomaxx 50l666 - [id number] Implanted:Qty: 1 on 10/19/2014 by David Rosado MD at OR [facility] N/A: Esophagus [employer] 05/23/2017 KAIDEN-2315 / / [id number] Stent Wallflex Esophogeal 28x1 - [id number] - [id number] Implanted:Qty: 1 on 2015 by David Rosado MD at OR [facility] N/A: Esophagus [employer] : ENDOSCOPY 06/23/2016 [id number] / [id number] / [id number] Stent Wallflex 27 Mm X 22 Mm [id number] Implanted:Qty: 1 on 2015 by David Rosado MD at OR [facility] N/A: Esophagus [employer] : ENDOSCOPY [id number] / / Stent Eso Gw 24j881 [id number] - [id number] Implanted:Qty: 1 on 02/16/2015 by David Rosado MD at OR [facility] N/A: Esophagus [employer] 04/23/2017 00722-941 / / [id number] Screw Ti Locking 1.8mm 497.78 - [id number] Implanted:Qty: 8 on 09/27/2021 by Messi Doll MD at OR [facility] Right: Spine Cervical SYNTHES 497.78 / / Screw Ti Expans 4.35mm 487.054 - [id number] Implanted:Qty: 8 on 09/27/2021 by Messi Doll MD at OR [facility] Right: Spine Cervical SYNTHES 487.054 / / Plate Cslp 487.355 - [id number] Implanted:Qty: 1 on 09/27/2021 by Messi Doll MD at OR [facility] Right: Spine Cervical SYNTHES 487.355 / / Cervical Vertigraft 5x7 - [id number] - [id number] Implanted:Qty: 1 on 09/27/2021 by Messi Doll MD at OR [facility] Right: Spine Cervical LIFENET 01/23/2026 [id number]-Z05M / [id number] 086 / [id number] [id number] Cervical Vertigraft 6x8 - [id number] - [id number] Implanted:Qty: 1 on 09/27/2021 by Messi Doll MD at OR [facility] Right: Spine Cervical LIFENET 11/10/2025 QU3J-M85M / [id number] [id number] / [id number] [id number] Cervical Vertigraft 5x7 - [id number] - [id number] Implanted:Qty: 1 on 09/27/2021 by Messi Doll MD at [facility] Right: Spine Cervical LIFENET 04/09/2026 TX2D-Y18A / [id number] [id number] / [id number] documented as of this encounter Advance [...] the patient have Health Care Power of Cognos Analyst? No Full Code 01/12/2015 10:35 PM 01/21/2015 4:44 PM Question Answer Comments Discussion of Advance Directives occurred with: Not Discussed Full Code 12/22/2014 4:26 AM 12/25/2014 5:53 PM This or nu reflects the patients wishes and were consensually agreed upon. Question Answer Comments Discussion of Advance Directives occurred with: Patient Care Teams Human Resources Project Coordinator Relationship Specialty Start Date End Date Jessee Wisdom MD [address] [facility] [place] [address] PCP - General Family Medicine 06/20/17 documented as of this encounter
--- OUTSIDE RECORDS SUMMARY | 2023-10-28 10:24 | External Medical Summary | Summary of Care ---
Author Name Unknown Organization [facility] Address [address] [place] [address] Phone [phone] Care Team Providers Care Crust Sorter Name Role Phone Jessee Wisdom MD Primary Care Provider +1- [phone] Reason for Visit * Reason Onset Date Comments Precert In Process 09/26/2023 05 [facility] Emgality Encounter Details Date Type Department Care Team (Late st Contact Info) Description 09/26/2023 Telephone Neurology, [place] [address] [place] [address] Michelle Roth MD [address] [place] [address] [facility] 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 Please advise - ty * Telephone Encounter - Jose L Fall hot air furnace installer and repairer - 09/26/2023 10:05 AM EDT New or re-auth: Re-auth Patient Ashley Morales needs a prior authorization for a medication through their [facility] insurance. Medication: Emgality Formulation: 120mg prefilled pen Dosage: 1ml for 30ds ID: [id number] BIN:[id number] PCN:nvtd Target ship date is n/a. Thank you very much, Johanne Fall Motion Picture Projectionist Apprentice, [facility] 09/26/2023 10:06 AM documented in this encounter Plan of Treatment Upcoming Encounters Date Type Department Care Team (Late st Contact Info) Description 10/07/2023 6:30 AM EDT Anticoagulation Pharmacy Call Center [address] [place] [address] [facility] [address] [place] [address] 10/08/2023 10:15 AM EDT Imaging Radiology [facility] [address] [facility] [place] [address] 10/09/2023 9:30 AM EDT Office Visit Gastroenterology, [facility] 132 [facility] [place] [address] Annabelle Ramirez CRNP [address] [place] [address] 10/15/2023 11:40 AM EDT Office Visit Family [facility] [address] [place] [phone] Jessee Wisdom MD [address] [place] [address] 09/14/2024 10:40 AM EDT Telemedicine Neurology, [place] [address] [place] [address] Michelle Roth MD [address] [place], [place] [phone] Scheduled Procedures Name Priority Associated Diagnoses Date/Ti [...] this encounter Medical Devices Implanted Type Area Cloud Subject Matter Expert Device Identifier Shelf Expiration Date Model / Serial / Lot Alloderm 2x4cm [id number] (8 Units) - [id number] - [id number] Implanted:Qty: 8 on 2015 by David [place]ado [place] [facility] [place] - Human N/A: Esophagus [employer] 10/21/2016 [id number] / [id number] / [id number] Stent Esoph Endomaxx 44i952 - [id number] Implanted:Qty: 1 on 07/09/2013 at [place] [facility] N/A: Esophagus [employer] 07/09/2015 KAIDEN-2315 / / [id number] Stent Esoph Endomaxx 22o000 - [id number] Implanted:Qty: 1 on 12/08/2013 [place] [facility] [employer] 06/23/2016 KAIDEN-1915 / / [id number] Stent Esoph Endomaxx 70s409 - [id number] Implanted:Qty: 1 on 10/19/2014 by David Rosado MD [place] [facility] N/A: Esophagus [employer] 05/23/2017 KAIDEN-2315 / / [id number] Stent Wallflex Esophogeal 28x1 - [id number] - [id number] Implanted:Qty: 1 on 2015 by David Rosado MD [place] [facility] N/A: Esophagus [employer] : ENDOSCOPY 06/23/2016 [id number] / [id number] / [id number] Stent Wallflex 27 Mm X 22 Mm [id number] Implanted:Qty: 1 on 2015 by David Rosado MD [place] [facility] N/A: Esophagus [employer] : ENDOSCOPY [id number] / / Stent Eso Gw 21z342 [id number] - [id number] Implanted:Qty: 1 on 02/16/2015 by David Rosado MD [place] [facility] N/A: Esophagus [employer] 04/23/2017 66068-942 / / [id number] Screw Ti Locking 1.8mm 497.78 - [id number] Implanted:Qty: 8 on 09/27/2021 by Messi Doll MD [place] [facility] Right: Spine Cervical SYNTHES 497.78 / / Screw Ti Expans 4.35mm 487.054 - [id number] Implanted:Qty: 8 on 09/27/2021 by Messi Doll MD at [place] [facility] Right: Spine Cervical SYNTHES 487.054 / / Plate Cslp 487.355 - [id number] Implanted:Qty: 1 on 09/27/2021 by Messi Doll MD at [place] [facility] Right: Spine Cervical SYNTHES 487.355 / / Cervical Vertigraft 5x7 - [id number] - [id number] Implanted:Qty: 1 on 09/27/2021 by Messi Doll MD at [place] [facility] Right: Spine Cervical LIFENET 01/23/2026 [id number] / [id number] 086 / [id number] Cervical Vertigraft 6x8 - [id number] - [id number] Implanted:Qty: 1 on 09/27/2021 by Messi Doll MD at [place] [facility] Right: Spine Cervical LIFENET 11/10/2025 XT7Q-P37W / [id number] 053 / [id number] Cervical Vertigraft 5x7 - [id number] - [id number] Implanted:Qty: 1 on 09/27/2021 by Messi Doll MD at [facility] Right: Spine Cervical LIFENET 04/09/2026 [id number]-B77H / [id number] 091 / [id number] documented as of this encounter Advance [...] patient have Health Care Power of Medical Insurance Verifier? No Full Code 01/12/2015 10:35 PM 01/21/2015 4:44 PM Question Answer Comments Discussion of Advance Directives occurred with: Not Discussed Full Code 12/22/2014 4:26 AM 12/25/2014 5:53 PM This or nu reflects the patients wishes and were consensually agreed upon. Question Answer Comments Discussion of Advance Directives occurred with: Patient Care Teams Crust Sorter Relationship Specialty Start Date End Date Jessee Wisdom MD [address] [facility] [place] [address] PCP - General Family Medicine 06/20/17 documented as of this encounter
--- OUTSIDE RECORDS SUMMARY | 2023-10-28 10:24 | External Medical Summary | Summary of Care ---
Author Name Unknown Organization [facility] Address [address] [place] [address] Phone [phone] Care Team Providers Care Humidifier Attendant Name Role Phone Jessee Wisdom MD Primary Care Provider +1- [phone] Reason for Visit * Reason Onset Date Comments Precert In Process 09/26/2023 05 [facility] Emgality Encounter Details Date Type Department Care Team (Late st Contact Info) Description 09/26/2023 Telephone Neurology, [place] [address] [place] [address] Michelle Roth MD [address] [place] [address] [facility] 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 Please advise - ty * Telephone Encounter - Jose L Fall manager alliance - 09/26/2023 10:05 AM EDT New or re-auth: Re-auth Patient Ashley Morales needs a prior authorization for a medication through their [facility] insurance. Medication: Emgality Formulation: 120mg prefilled pen Dosage: 1ml for 30ds ID: [id number] BIN:[id number] PCN:nvtd Target ship date is n/a. Thank you very much, Johanne Fall Shirt Trimmer, [facility] 09/26/2023 10:06 AM documented in this encounter Plan of Treatment Upcoming Encounters Date Type Department Care Team (Late st Contact Info) Description 10/07/2023 6:30 AM EDT Anticoagulation Pharmacy Call Center [address] [place] [address] [facility] 58 60 [facility] [place] [address] 10/08/2023 10:15 AM EDT Imaging Radiology [address], [address] [place] [address] 10/09/2023 9:30 AM EDT Office Visit Gastroenterology, [facility] [address] [place] [address] Annabelle Ramirez CRNP [address] [place] [address] 10/15/2023 11:40 AM EDT Office Visit [facility] [address] [place] [phone] Jessee Wisdom MD [address] [place] [address] 09/14/2024 10:40 AM EDT [facility] [address], [place] [phone] Michelle Roth MD [address] [place] [address] Scheduled Procedures Name Priority Associated [...] encounter Medical Devices Implanted Type Area Beef Boner Device Identifier Shelf Expiration Date Model / Serial / Lot Alloderm 2x4cm [id number] (8 Units) - [id number] - [id number] Implanted:Qty: 8 on 2015 by [place] Rosado [place] [facility] [place] - Human N/A: Esophagus [employer] 10/21/2016 [id number] / [id number] / [id number] Stent Esoph Endomaxx 89c091 - [id number] Implanted:Qty: 1 on 07/09/2013 [place] [facility] [place] N/A: Esophagus [employer] 07/09/2015 KAIDEN-2315 / / [id number] Stent Esoph Endomaxx 43w709 - [id number] Implanted:Qty: 1 on 12/08/2013 [place] [facility] [place] [employer] 06/23/2016 KAIDEN-1915 / / [id number] Stent Esoph Endomaxx 55m011 - [id number] Implanted:Qty: 1 on 10/19/2014 by David Rosado MD [place] [facility] [place] N/A: Esophagus [employer] 05/23/2017 KAIDEN-2315 / / [id number] Stent Wallflex Esophogeal 28x1 - [id number] - [id number] Implanted:Qty: 1 on 2015 by David Rosado MD [place] [facility] [place] N/A: Esophagus [employer] : ENDOSCOPY 06/23/2016 [id number] / [id number] / [id number] Stent Wallflex 27 Mm X 22 Mm [id number] Implanted:Qty: 1 on 2015 by David Rosado MD [place] [facility] [place] N/A: Esophagus [employer] : ENDOSCOPY [id number] / / Stent Eso Gw 38q446 [id number] - [id number] Implanted:Qty: 1 on 02/16/2015 by David Rosado MD [place] [facility] [place] N/A: Esophagus [employer] 04/23/2017 [id number] / / [id number] Screw Ti Locking 1.8mm 497.78 - [id number] Implanted:Qty: 8 on 09/27/2021 by Messi Doll MD at [place] [facility] [place] Right: Spine Cervical SYNTHES 497.78 / / Screw Ti Expans 4.35mm 487.054 - [id number] Implanted:Qty: 8 on 09/27/2021 by Messi Doll MD at [place] [facility] [place] Right: Spine Cervical SYNTHES 487.054 / / Plate Cslp 487.355 - [id number] Implanted:Qty: 1 on 09/27/2021 by Messi Doll MD at [place] [facility] [place] Right: Spine Cervical SYNTHES 487.355 / / Cervical Vertigraft 5x7 - [id number] - [id number] Implanted:Qty: 1 on 09/27/2021 by Messi Doll MD at [place] [facility] [place] Right: Spine Cervical [employer] 01/23/2026 [id number]-T08H / [id number] [id number] Cervical Vertigraft 6x8 - [id number] - [id number] Implanted:Qty: 1 on 09/27/2021 by Messi Doll MD at [place] [facility] [place] Right: Spine Cervical [employer] 11/10/2025 FS5N-X13C / [id number] [id number] / [id number] [id number] Cervical Vertigraft 5x7 - [id number] - [id number] Implanted:Qty: 1 on 09/27/2021 by Messi Doll MD at [place] [facility] [place] Right: Spine Cervical [employer] 04/09/2026 HY8N-L74G / [id number] 091 / [id number] documented as of this encounter Advance [...] the patient have Health Care Power of Coagulant Dipper? No Full Code 01/12/2015 10:35 PM 01/21/2015 4:44 PM Question Answer Comments Discussion of Advance Directives occurred with: Not Discussed Full Code 12/22/2014 4:26 AM 12/25/2014 5:53 PM This or nu reflects the patients wishes and were consensually agreed upon. Question Answer Comments Discussion of Advance Directives occurred with: Patient Care Teams Humidifier Attendant Relationship Specialty Start Date End Date Jessee Wisdom MD [address] [place] [address] PCP - General Family Medicine 06/20/17 documented as of this encounter
--- OUTSIDE RECORDS SUMMARY | 2023-10-28 10:25 | External Medical Summary | Summary of Care ---
Author Name Unknown Organization [facility] Address [address] [place] [address] Phone [phone] Care Team Providers Care Fiberglass Roving Winder Name Role Phone Jessee Wisdom MD Primary Care Provider +1- [phone] Reason for Visit * Reason Onset Date Comments Precert In Process 09/26/2023 05 [facility] Emgality Encounter Details Date Type Department Care Team (Late st Contact Info) Description 09/26/2023 Telephone Neurology, [place] [address] [place] [address] Michelle Roth MD [address] [place] [address] Precert In Process ( [facility]... 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 Please advise - ty * Telephone Encounter - Jose L Fall, dukey rider - 09/26/2023 10:05 AM EDT New or re-auth: Re-auth Patient Ashley Morales needs a prior authorization for a medication through their [facility] insurance. Medication: Emgality Formulation: 120mg prefilled pen Dosage: 1ml for 30ds ID: [id number] BIN:[id number] PCN:nvtd Target ship date is n/a. Thank you very much, Johanne Fall Back Panel Padder, [facility] 09/26/2023 10:06 AM documented in this encounter Plan of Treatment Upcoming Encounters Date Type Department Care Team (Late st Contact Info) Description 10/07/2023 6:30 AM EDT Anticoagulation Pharmacy Call Center [address] [facility] [place] [address] [facility] 58 60 [facility] [place] [address] 10/08/2023 10:15 AM EDT [facility] [address] [place] [address] 10/09/2023 9:30 AM EDT Office Visit Gastroenterology, [facility] [address] [facility] [place] [address] Annabelle Ramirez CRNP [address] [facility] [place] [address] 10/15/2023 11:40 AM EDT Office [facility] [address] [place] [phone] Jessee Wisdom MD [address] [place] [address] 09/14/2024 10:40 AM EDT Telemedicine Neurology, [place] [address], [place] [phone] Michelle Roth MD [address] [place] [address] Scheduled Procedures Name Priority Associated [...] this encounter Medical Devices Implanted Type Area Genetic Engineer Device Identifier Shelf Expiration Date Model / Serial / Lot Alloderm 2x4cm [id number] (8 Units) - [id number] - [id number] Implanted:Qty: 8 on 2015 by David Rosado MD at OR [facility] [place] Tissue - Human N/A: Esophagus [employer] 10/21/2016 [id number] / [id number] / [id number] Stent Esoph Endomaxx 30a662 - [id number] Implanted:Qty: 1 on 07/09/2013 at OR [facility] [place] N/A: Esophagus [employer] 07/09/2015 KAIDEN-2315 / / [id number] Stent Esoph Endomaxx 95h209 - [id number] Implanted:Qty: 1 on 12/08/2013 at OR [facility] [place] [employer] 06/23/2016 KAIDEN-1915 / / [id number] Stent Esoph Endomaxx 22d968 - [id number] Implanted:Qty: 1 on 10/19/2014 by David Rosado MD at OR [facility] [place] N/A: Esophagus [employer] 05/23/2017 KAIDEN-2315 / / [id number] Stent Wallflex Esophogeal 28x1 - [id number] - [id number] Implanted:Qty: 1 on 2015 by David Rosado MD at OR [facility] [place] N/A: Esophagus [employer] : ENDOSCOPY 06/23/2016 [id number] / [id number] / [id number] Stent Wallflex 27 Mm X 22 Mm [id number] Implanted:Qty: 1 on 2015 by David Rosado MD at OR [facility] [place] N/A: Esophagus [employer] : ENDOSCOPY [id number] / / Stent Eso Gw 31e851 [id number] - [id number] Implanted:Qty: 1 on 02/16/2015 by David Rosado MD at OR [facility] [place] N/A: Esophagus [employer] 04/23/2017 [id number] / / [id number] Screw Ti Locking 1.8mm 497.78 - [id number] Implanted:Qty: 8 on 09/27/2021 by Messi Doll MD at OR [facility] [place] Right: Spine Cervical SYNTHES 497.78 / / Screw Ti Expans 4.35mm 487.054 - [id number] Implanted:Qty: 8 on 09/27/2021 by Messi Doll MD at OR [facility] [place] Right: Spine Cervical SYNTHES 487.054 / / Plate Cslp 487.355 - [id number] Implanted:Qty: 1 on 09/27/2021 by Messi Doll MD at OR [facility] [place] Right: Spine Cervical SYNTHES 487.355 / / Cervical Vertigraft 5x7 - [id number] - [id number] Implanted:Qty: 1 on 09/27/2021 by Messi Doll MD at OR [facility] [place] Right: Spine Cervical [employer] 01/23/2026 AX3W-N07Q / [id number] 086 / [id number] 086 Cervical Vertigraft 6x8 - [id number] - [id number] Implanted:Qty: 1 on 09/27/2021 by Messi Doll MD at OR [facility] [place] Right: Spine Cervical [employer] 11/10/2025 PX5X-M98Y / [id number] 053 / [id number] 053 Cervical Vertigraft 5x7 - [id number] - [id number] Implanted:Qty: 1 on 09/27/2021 by Messi Doll MD at OR [facility] [place] Right: Spine Cervical [employer] 04/09/2026 QE1K-Y40W / [id number] 091 / [id number] 091 documented as of this encounter Advance [...] the patient have Health Care Power of Brick Handler? No Full Code 01/12/2015 10:35 PM 01/21/2015 4:44 PM Question Answer Comments Discussion of Advance Directives occurred with: Not Discussed Full Code 12/22/2014 4:26 AM 12/25/2014 5:53 PM This or nu reflects the patients wishes and were consensually agreed upon. Question Answer Comments Discussion of Advance Directives occurred with: Patient Care Teams Fiberglass Roving Winder Relationship Specialty Start Date End Date Jessee Wisdom MD [address] [place] [address] PCP - General Family Medicine 06/20/17 documented as of this encounter
--- OUTSIDE RECORDS SUMMARY | 2023-10-28 10:25 | External Medical Summary | Summary of Care ---
Author Name Unknown Organization [facility] Address [address] [place] [address] Phone [phone] Care Team Providers Care Geography Teacher Name Role Phone Jessee Wisdom MD Primary Care Provider +1- [phone] Reason for Visit * Reason Onset Date Comments Precert In Process 09/26/2023 05 [facility] Emgality Encounter Details Date Type Department Care Team (Late st Contact Info) Description 09/26/2023 Telephone Neurology, [place] [address] [place] [address] Michelle Roth MD [address] [place] [address] Precert In Process ( [facility]... 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 Please advise - ty * Telephone Encounter - Jose L Fall, local coordinator - 09/26/2023 10:05 AM EDT New or re-auth: Re-auth Patient Ashley Morales needs a prior authorization for a medication through their [facility] insurance. Medication: Emgality Formulation: 120mg prefilled pen Dosage: 1ml for 30ds ID: [id number] BIN:[id number] PCN:nvtd Target ship date is n/a. Thank you very much, Johanne Fall Residential Gas Heat Technician, [facility] 09/26/2023 10:06 AM documented in this encounter Plan of Treatment Upcoming Encounters Date Type Department Care Team (Late st Contact Info) Description 10/02/2023 2:15 PM EDT Imaging Radiology [facility]st [facility] [address] [place] [address] 10/07/2023 6:30 AM EDT Anticoagulation Pharmacy Call Center [address] [place] [address] [facility] 58 60 [facility] [place] [address] 10/09/2023 9:30 AM EDT Office Visit Gastroenterology, [facility] [address] [place] [address] Annabelle Ramirez CRNP [address] [facility] [place] [address] 10/15/2023 11:40 AM EDT Office Visit [facility] [address] [place] [phone] Jessee Wisdom MD [address] [place] [address] 09/14/2024 10:40 AM EDT Telemedicine Neurology, [place] [address] [place], [place] [phone] Michelle Roth MD [address] [place] [address] Scheduled Procedures Name Priority Associated [...] this encounter Medical Devices Implanted Type Area Derrick Man Device Identifier Shelf Expiration Date Model / Serial / Lot Alloderm 2x4cm [id number] (8 Units) - [id number] - [id number] Implanted:Qty: 8 on 2015 by David Rosado MD at [place] [facility] [place] Tissue - Human N/A: Esophagus [employer] 10/21/2016 [id number] / [id number] / [id number] Stent Esoph Endomaxx 70d211 - [id number] Implanted:Qty: 1 on 07/09/2013 at [place] [facility] [place] N/A: Esophagus [employer] 07/09/2015 KAIDEN-2315 / / [id number] Stent Esoph Endomaxx 95z357 - [id number] Implanted:Qty: 1 on 12/08/2013 at [place] [facility] [place] [employer] 06/23/2016 KAIDEN-1915 / / [id number] Stent Esoph Endomaxx 76u041 - [id number] Implanted:Qty: 1 on 10/19/2014 by David Rosado MD at [place] [facility] [place] N/A: Esophagus [employer] 05/23/2017 KAIDEN-2315 / / [id number] Stent Wallflex Esophogeal 28x1 - [id number] - [id number] Implanted:Qty: 1 on 2015 by David Rosado MD at [place] [facility] [place] N/A: Esophagus [employer] : ENDOSCOPY 06/23/2016 [id number] / [id number] / [id number] Stent Wallflex 27 Mm X 22 Mm 6512 Implanted:Qty: 1 on 2015 by David Rosado MD at [place] [facility] [place] N/A: Esophagus [employer] : ENDOSCOPY [id number] / / Stent Eso Gw 91e090 32333-832 - [id number] Implanted:Qty: 1 on 02/16/2015 by David Rosado MD at [place] [facility] [place] N/A: Esophagus [employer] 04/23/2017 [id number] / / [id number] Screw Ti Locking 1.8mm 497.78 - [id number] Implanted:Qty: 8 on 09/27/2021 by Messi Doll MD at OR [facility] [place] Right: Spine Cervical SYNTHES 497.78 / / Screw Ti Expans 4.35mm 487.054 - [id number] Implanted:Qty: 8 on 09/27/2021 by Messi Doll MD at [place] [facility] [place] Right: Spine Cervical SYNTHES 487.054 / / Plate Cslp 487.355 - [id number] Implanted:Qty: 1 on 09/27/2021 by Messi Doll MD at [place] [facility] [place] Right: Spine Cervical SYNTHES 487.355 / / Cervical Vertigraft 5x7 - [id number] - [id number] Implanted:Qty: 1 on 09/27/2021 by Messi Doll MD at [place] [facility] [place] Right: Spine Cervical [employer] 01/23/2026 ZM9A-P32Z / [id number] 086 / [id number] 086 Cervical Vertigraft 6x8 - [id number] - [id number] Implanted:Qty: 1 on 09/27/2021 by Messi Doll MD at [place] [facility] [place] Right: Spine Cervical [employer] 11/10/2025 JD1K-T09O / [id number] 053 / [id number] [id number] Cervical Vertigraft 5x7 - [id number] - [id number] Implanted:Qty: 1 on 09/27/2021 by Messi Doll MD at [place] [facility] [place] Right: Spine Cervical [employer] 04/09/2026 HY9D-L61C / [id number] 091 / [id number] [id number] documented as of this encounter Advance [...] the patient have Health Care Power of Soil Field Technician? No Full Code 01/12/2015 10:35 PM 01/21/2015 4:44 PM Question Answer Comments Discussion of Advance Directives occurred with: Not Discussed Full Code 12/22/2014 4:26 AM 12/25/2014 5:53 PM This or nu reflects the patients wishes and were consensually agreed upon. Question Answer Comments Discussion of Advance Directives occurred with: Patient Care Teams Geography Teacher Relationship Specialty Start Date End Date Jessee Wisdom MD [address] [place] [address] PCP - General Family Medicine 06/20/17 documented as of this encounter
--- OUTSIDE RECORDS SUMMARY | 2023-10-28 10:25 | External Medical Summary | Summary of Care ---
Author Name Unknown Organization [facility] Address [address] [place] [address] Phone [phone] Care Team Providers Care Floor Covering Layer Name Role Phone Jessee Wisdom MD Primary Care Provider +1- [phone] Reason for Visit * Reason Onset Date Comments Precert In Process 09/26/2023 05 [facility] Emgality Encounter Details Date Type Department Care Team (Late st Contact Info) Description 09/26/2023 Telephone Neurology, [place] [address] [place] [address] Michelle Roth MD [address] [place] [address] Precert In Process ( [facility]... Allergies Active Allergy Reactions Criticality Noted Date Comments Ciprofloxacin Nausea/vomiting 01/04/2023 Clindamycin Other (Please comment) 09/19/2020 Stomach pain Latex Rash 07/23/2006 Prolonged exposure only Morphine Other (Please comment) High 02/06/2020 Sulfa Antibiotics Hives 05/05/2004 documented as of this encounter (statuses as of 09/30/2023) Medications Medication Sig Dispensed Refills Start Date [...] a week. 48 Tablet 1 4 Active Galcanezumab-gnlm 120 MG/ML Subcutaneous Solution Auto-injector (Emgality) Inject 120 mg under the skin once monthly. 1 mL 11 4 Active DULoxetine HCl 30 MG Oral Capsule Delayed Release Particles (Cymbalta) TAKE 1 CAPSULE BY MOUTH EVERY MORNING. 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 SHIN RESEARCH OTHER*[id number] 02/03/2006 Anxiety state 08/07/2005 AGORAPHOBIA 08/07/2005 Class 2 obesity without seri ous comorbidity with body mass index (BMI) of 39.0 to 39.9 in adult 04/22/2000 Overview: Per Obesity Taxonomy documented as of this encounter (statuses as of 09/30/2023) Resolved Problems Problem Noted Date Diagnosed Date [...] aura 02/27/2013 11/23/2016 Migraine with aura 03/31/2012 06/02/201 7 Chronic daily headache 03/31/201211/23 Cervicalgia 11/14/2009 [...] as of this encounter (statuses as of 09/30/2023) Immunizations Name Administration Dates Next Due 08/07/2016, [...] money to buy more. Never true 07/10/19 Within the past 12 months, t he [...] OSA - 09/27/2023 1:14 PM EDT Per [facility] they need documentation of improvement to approve Emgality. Please advise - ty * Telephone Encounter - Jose L Fall type bar and segment assembler - 09/26/2023 10:05 AM EDT New or re-auth: Re-auth Patient Ashley Morales needs a prior authorization for a medication through their [facility] insurance. Medication: Emgality Formulation: 120mg prefilled pen Dosage: 1ml for 30ds ID: [id number] BIN:[id number] PCN:nvtd Target ship date is n/a. Thank you very much, Johanne Fall Director Metabolism, [facility] 09/26/2023 10:06 AM documented in this encounter Plan of Treatment Upcoming Encounters Date Type Department Care Team (Late st Contact Info) Description 09/30/2023 1:00 PM EDT Nurse Only Ancillary Department, [address] [place] [address] [place], Nurse Annual Wellness [address] [place] [address] 10/02/2023 2:15 PM EDT Imaging Radiology [facility] 1st [facility], [address] [place] [address] 10/07/2023 6:30 AM EDT Anticoagulation Pharmacy Call Center [address] [place] [address] [facility] 58 60 [facility] [place] [address] 10/09/2023 9:30 AM EDT Office Visit Gastroenterology, [facility] [address] [place] [address] Annabelle Ramirez CRNP [address] [place] [address] 10/15/2023 11:40 AM EDT Office Visit [facility] [address] [place] [phone] Jessee Wisdom MD [address], [place] [phone] 09/14/2024 10:40 AM EDT Telemedicine Neurology, [place] [address], [place] [phone] Michelle Roth MD [address], [place] [phone] Scheduled Procedures Name Priority Associated Diagnoses Date/Ti [...] this encounter Medical Devices Implanted Type Area Geographic Information Systems Engineer Device Identifier Shelf Expiration Date Model / Serial / Lot Alloderm 2x4cm [id number] (8 Units) - [id number] - [id number] Implanted:Qty: 8 on 2015 by [place]ado [place] [facility] [place] - Human N/A: Esophagus Grid[employer]raft 10/21/2016 [id number] / [id number] / [id number] Stent Esoph Endomaxx 70r028 - [id number] Implanted:Qty: 1 on 07/09/2013 [place] [facility] [place] N/A: Esophagus [employer] 07/09/2015 KAIDEN-2315 / / [id number] Stent Esoph Endomaxx 56y664 - [id number] Implanted:Qty: 1 on 12/08/2013 [place] [facility] [place] [employer] 06/23/2016 KAIDEN-1915 / / [id number] Stent Esoph Endomaxx [id number] - [id number] Implanted:Qty: 1 on 10/19/2014 by David Rosado MD [place] [facility] [place] N/A: Esophagus [employer] 05/23/2017 KAIDEN-2315 / / [id number] Stent Wallflex Esophogeal 28x1 - [id number] - [id number] Implanted:Qty: 1 on 2015 by David Rosado MD [place] [facility] [place] N/A: Esophagus [employer] : ENDOSCOPY 06/23/2016 [id number] / [id number] / [id number] Stent Wallflex 27 Mm X 22 Mm [id number] Implanted:Qty: 1 on 2015 by David Rosado MD [place] [facility] [place] N/A: Esophagus [employer] : ENDOSCOPY [id number] / / Stent Eso Gw [id number] [id number] - [id number] Implanted:Qty: 1 on 02/16/2015 by David Rosado MD at [place] [facility] [place] N/A: Esophagus ALVE[employer]US INC 04/23/2017 [id number] / / [id number] Screw Ti Locking 1.8mm 497.78 - [id number] Implanted:Qty: 8 on 09/27/2021 by Messi Doll MD [place] [facility] [place] Right: Spine Cervical SYNTHES 497.78 / / Screw Ti Expans 4.35mm 487.054 - [id number] Implanted:Qty: 8 on 09/27/2021 by Messi Doll MD at [place] [facility] [place] Right: Spine Cervical SYNTHES 487.054 / / Plate Cslp 487.355 - [id number] Implanted:Qty: 1 on 09/27/2021 by Messi Doll MD at [place] [facility] [place] Right: Spine Cervical SYNTHES 487.355 / / Cervical Vertigraft 5x7 - [id number] - [id number] Implanted:Qty: 1 on 09/27/2021 by Messi Doll MD at [place] [facility] [place] Right: Spine Cervical LIFENET 01/23/2026 [id number]-[id number] / [id number] [id number] / [id number] Cervical Vertigraft 6x8 - [id number] - [id number] Implanted:Qty: 1 on 09/27/2021 by Messi Doll MD at [place] [facility] [place] Right: Spine Cervical LIFENET 11/10/2025 FH1E-V65B / [id number] [id number] / [id number] Cervical Vertigraft 5x7 - [id number] - [id number] Implanted:Qty: 1 on 09/27/2021 by Messi Doll MD at [place] [facility] [place] Right: Spine Cervical LIFENET 04/09/2026 MZ8I-O24B / [id number] 091 / [id number] [id number] documented as of this encounter Advance [...] the patient have Health Care Power of City Driver? No Full Code 01/12/2015 10:35 PM 01/21/2015 4:44 PM Question Answer Comments Discussion of Advance Directives occurred with: Not Discussed Full Code 12/22/2014 4:26 AM 12/25/2014 5:53 PM This or nu reflects the patients wishes and were consensually agreed upon. Question Answer Comments Discussion of Advance Directives occurred with: Patient Care Teams Floor Covering Layer Relationship Specialty Start Date End Date Jessee Wisdom MD [address] [place] [address] PCP - General Family Medicine 06/20/17 documented as of this encounter
--- OUTSIDE RECORDS SUMMARY | 2023-10-28 10:25 | External Medical Summary | Summary of Care ---
Author Name Unknown Organization [facility] Address [address] [place] [address] Phone [phone] Care Team Providers Care Film Or Videotape Editor Name Role Phone Jessee Wisdom MD Primary Care Provider +1- [phone] Reason for Visit * Reason Onset Date Comments Precert In Process 09/26/2023 05 [facility] Emgality Encounter Details Date Type Department Care Team (Late st Contact Info) Description 09/26/2023 Telephone Neurology, [place] [address] [place] [address] Michelle Roth MD [address] [place] [address] Precert In Process ( [facility]... 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 SHIN RESEARCH OTHER*[id number] 02/03/2006 Anxiety state 08/07/2005 AGORAPHOBIA 08/07/2005 Class 2 obesity without seri ous comorbidity with body mass index (BMI) of 39.0 to 39.9 in adult 04/22/2000 Overview: Per Obesity Taxonomy documented as of this encounter (statuses as of 09/27/2023) Resolved Problems Problem Noted Date Diagnosed Date [...] as of this encounter (statuses as of 09/27/2023) Immunizations Name Administration Dates Next Due 08/07/2016, [...] OSA - 09/27/2023 1:14 PM EDT Per [facility] they need documentation of improvement to approve Emgality. Please advise - ty * Telephone Encounter - Jose L Fall speech pathologist - 09/26/2023 10:05 AM EDT New or re-auth: Re-auth Patient Ashley Morales needs a prior authorization for a medication through their [facility] insurance. Medication: Emgality Formulation: 120mg prefilled pen Dosage: 1ml for 30ds ID: [id number] BIN:[id number] PCN:nvtd Target ship date is n/a. Thank you very much, Johanne Fall Topographical Engineer, [facility] 09/26/2023 10:06 AM documented in this encounter Plan of Treatment Upcoming Encounters Date Type Department Care Team (Late st Contact Info) Description 09/30/2023 1:00 PM EDT Nurse Only Ancillary Department, [address] [place] [address] [place], Nurse Annual Wellness [address] [place] [address] 10/02/2023 2:15 PM EDT Imaging Radiology [facility] 1st [facility], [address] [place] [address] 10/07/2023 6:30 AM EDT Anticoagulation Pharmacy Call Center [address] [place] [address] [facility] 58 60 [facility] [place] [address] 10/09/2023 9:30 AM EDT Office Visit Gastroenterology, [facility] [address] [place] [address] Annabelle Ramirez CRNP [address] [place] [address] 10/15/2023 11:40 AM EDT Office Visit [facility] [address] [place] [phone] Jessee Wisdom MD [address], [place] [phone] 09/14/2024 10:40 AM EDT Telemedicine Neurology, [place] [address] [place], [place] [phone] Michelle Roth MD [address] [place], [place] [phone] Scheduled Procedures Name Priority Associated Diagnoses Date/Ti [...] this encounter Medical Devices Implanted Type Area Blaster Helper Device Identifier Shelf Expiration Date Model / Serial / Lot Alloderm 2x4cm [id number] (8 Units) - [id number] - [id number] Implanted:Qty: 8 on 2015 by David Rosado MD at [place] [facility] [place] Tissue - Human N/A: Esophagus [employer] 10/21/2016 [id number] / [id number] / [id number] Stent Esoph Endomaxx 66h497 - [id number] Implanted:Qty: 1 on 07/09/2013 at [place] [facility] [place] N/A: Esophagus [employer] 07/09/2015 KAIDEN-2315 / / [id number] Stent Esoph Endomaxx 82i116 - [id number] Implanted:Qty: 1 on 12/08/2013 at [place] [facility] [employer] 06/23/2016 KAIDEN-1915 / / [id number] Stent Esoph Endomaxx 79e339 - [id number] Implanted:Qty: 1 on 10/19/2014 by David Rosado MD at [place] [facility] [place] N/A: Esophagus [employer] MED[employer] 05/23/2017 KAIDEN-2315 / / [id number] Stent Wallflex Esophogeal 28x1 - [id number] - [id number] Implanted:Qty: 1 on 2015 by David Rosado MD at [place] [facility] [place] N/A: Esophagus [employer] : ENDOSCOPY 06/23/2016 [id number] / [id number] / [id number] Stent Wallflex 27 Mm X 22 Mm [id number] Implanted:Qty: 1 on 2015 by David Rosado MD at [place] [facility] [place] N/A: Esophagus [employer] : ENDOSCOPY [id number] / / Stent Eso Gw 34v472 08688-186 - [id number] Implanted:Qty: 1 on 02/16/2015 by David Rosado MD at [place] [facility] [place] N/A: Esophagus ALVEOLUS INC 04/23/2017 [id number] / / [id number] Screw Ti Locking 1.8mm 497.78 - [id number] Implanted:Qty: 8 on 09/27/2021 by Messi Doll MD at [place] [facility] [place] Right: Spine Cervical SYNTHES 497.78 / / Screw Ti Expans 4.35mm 487.054 - [id number] Implanted:Qty: 8 on 09/27/2021 by Messi Doll MD at [place] [facility] Right: Spine Cervical SYNTHES 487.054 / / Plate Cslp 487.355 - [id number] Implanted:Qty: 1 on 09/27/2021 by Messi Doll MD at [place] [facility] [place] Right: Spine Cervical SYNTHES 487.355 / / Cervical Vertigraft 5x7 - [id number] - [id number] Implanted:Qty: 1 on 09/27/2021 by Messi Dlol MD at [place] [facility] [place] Right: Spine Cervical LIFENET 01/23/2026 EO6V-B03N / [id number] 086 / [id number] 086 Cervical Vertigraft 6x8 - [id number] - [id number] Implanted:Qty: 1 on 09/27/2021 by Messi Doll MD at [place] [facility] [place] Right: Spine Cervical LIFENET 11/10/2025 PQ5N-O29J / [id number] 053 / [id number] 053 Cervical Vertigraft 5x7 - [id number] - [id number] Implanted:Qty: 1 on 09/27/2021 by Messi Doll MD at [place] [facility] [place] Right: Spine Cervical LIFENET 04/09/2026 HQ2Q-X44U / [id number] 091 / [id number] 091 documented as of this encounter Advance [...] the patient have Health Care Power of Long Wall Mining Machine Helper? No Full Code 01/12/2015 10:35 PM 01/21/2015 4:44 PM Question Answer Comments Discussion of Advance Directives occurred with: Not Discussed Full Code 12/22/2014 4:26 AM 12/25/2014 5:53 PM This or nu reflects the patients wishes and were consensually agreed upon. Question Answer Comments Discussion of Advance Directives occurred with: Patient Care Teams Film Or Videotape Editor Relationship Specialty Start Date End Date Jessee Wisdom MD [address] [place] [address] PCP - General Family Medicine 06/20/17 documented as of this encounter
--- OUTSIDE RECORDS SUMMARY | 2023-10-28 10:25 | External Medical Summary | Summary of Care ---
Author Name Unknown Organization [facility] Address [address] [place] [address] Phone [phone] Care Team Providers Care Customer Care Professional Name Role Phone Jessee Wisdom MD Primary Care Provider +1- [phone] Reason for Visit * Reason Onset Date Comments Precert In Process 09/26/[address] [facility] Emgality Encounter Details Date Type Department Care Team (Late st Contact Info) Description 09/26/2023 Telephone Neurology, [place] [address] [place] [address] Michelle Roth MD [address] [place] [address] Precert In Process ( [facility] 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 Please advise - ty * Telephone Encounter - Jose L Fall, pipe fitter soft copper - 09/26/2023 10:05 AM EDT New or re-auth: Re-auth Patient Ashley Morales needs a prior authorization for a medication through their [facility] insurance. Medication: Emgality Formulation: 120mg prefilled pen Dosage: 1ml for 30ds ID: [id number] BIN:[id number] PCN:nvtd Target ship date is n/a. Thank you very much, Johanne Fall School Custodian, [facility] 09/26/2023 10:06 AM documented in this encounter Plan of Treatment Upcoming Encounters Date Type Department Care Team (Late st Contact Info) Description 10/07/2023 6:30 AM EDT Anticoagulation Pharmacy Call Center [address] [facility] [place] [address] [facility] 58 60 [facility] [place] [address] 10/08/2023 10:15 AM EDT Imaging Radiology [facility]st [facility] 132 [facility] [place] [address] 10/09/2023 9:30 AM EDT Office Visit Gastroenterology, [facility] 132 [facility] [place] [address] Annabelle Ramirez CRNP 132 [facility] [place] [address] 10/15/2023 11:40 AM EDT Office Visit [facility] [address] [place] [phone] Jessee Wisdom MD [address] [place] [address] 09/14/2024 10:40 AM EDT Telemedicine Neurology, [place] [address] [place], [place] [phone] Michelle Roth MD [address] [place] [address] Scheduled Procedures Name Priority Associated [...] this encounter Medical Devices Implanted Type Area Equal Opportunity Representative Device Identifier Shelf Expiration Date Model / Serial / Lot Alloderm 2x4cm [id number] (8 Units) - [id number] - [id number] Implanted:Qty: 8 on 2015 by [place] [facility] [place] Human N/A: Esophagus [employer] 10/21/2016 [id number] / [id number] / [id number] Stent Esoph Endomaxx [id number] - [id number] Implanted:Qty: 1 on 07/09/2013 [place] [facility] [place]/A: Esophagus [employer] MEDICAL [employer] 07/09/2015 KAIDEN-2315 / / [id number] Stent Esoph Endomaxx 24v014 - [id number] Implanted:Qty: 1 on 12/08/2013 [place] [facility] [place] [employer] INC 06/23/2016 KAIDEN-1915 / / [id number] Stent Esoph Endomaxx 87f965 - [id number] Implanted:Qty: 1 on 10/19/2014 by David Rosado MD [place] [facility] [place]A: Esophagus [employer] MEDICAL [employer] 05/23/2017 KAIDEN-2315 / / [id number] Stent Wallflex Esophogeal 28x1 - [id number] - [id number] Implanted:Qty: 1 on 2015 by David Rosado MD [place] [facility] [place]/A: Esophagus [employer] : ENDOSCOPY 06/23/2016 [id number] / [id number] / [id number] Stent Wallflex 27 Mm X 22 Mm 6512 Implanted:Qty: 1 on 2015 by David Rosado MD [place] [facility] [place] N/A: Esophagus [employer] : ENDOSCOPY [id number] / / Stent Eso Gw 11r643 61749-906 - [id number] Implanted:Qty: 1 on 02/16/2015 by David Rosado MD [place] [facility] [place] N/A: Esophagus ALVEOLUS INC 04/23/2017 92137-053 / / [id number] Screw Ti Locking 1.8mm 497.78 - [id number] Implanted:Qty: 8 on 09/27/2021 by Messi Doll MD [place] [facility] [place] Right: Spine Cervical SYNTHES 497.78 / / Screw Ti Expans 4.35mm 487.054 - [id number] Implanted:Qty: 8 on 09/27/2021 by Messi Doll MD [place] [facility] [place]: Spine Cervical SYNTHES 487.054 / / Plate Cslp 487.355 - [id number] Implanted:Qty: 1 on 09/27/2021 by Messi Doll MD [place] [facility] [place] Right: Spine Cervical SYNTHES 487.355 / / Cervical Vertigraft 5x7 - [id number] - [id number] Implanted:Qty: 1 on 09/27/2021 by Messi Doll MD [place] [facility] [place]: Spine Cervical LIFENET 01/23/2026 ZS0H-M56B / [id number] 086 / [id number] 086 Cervical Vertigraft 6x8 - [id number] - [id number] Implanted:Qty: 1 on 09/27/2021 by Messi Doll MD [place] [facility] [place]: Spine Cervical LIFENET 11/10/2025 [id number]-K92Y / [id number] 053 / [id number] [id number] Cervical Vertigraft 5x7 - [id number] - [id number] Implanted:Qty: 1 on 09/27/2021 by Messi Doll MD [place] [facility] [place]: Spine Cervical LIFENET 04/09/2026 TG3V-Y27Z / [id number] 091 / [id number] 091 documented as of this encounter Advance [...] patient have Health Care Power of Senior Health Consultant? No Full Code 01/12/2015 10:35 PM 01/21/2015 4:44 PM Question Answer Comments Discussion of Advance Directives occurred with: Not Discussed Full Code 12/22/2014 4:26 AM 12/25/2014 5:53 PM This or nu reflects the patients wishes and were consensually agreed upon. Question Answer Comments Discussion of Advance Directives occurred with: Patient Care Teams Customer Care Professional Relationship Specialty Start Date End Date Jessee Wisdom MD [address] [place] [address] PCP - General Family Medicine 06/20/17 documented as of this encounter
--- OUTSIDE RECORDS SUMMARY | 2023-10-28 10:25 | External Medical Summary | Summary of Care ---
Author Name Unknown Organization [facility] Address [address] [place] [address] Phone [phone] Care Team Providers Care Malt Roaster Name Role Phone Jessee Wisdom MD Primary Care Provider +1- [phone] Reason for Visit * Reason Onset Date Comments Medication Refill 09/30/2023 Encounter Details Date Type Department Care Team (Late st Contact Info) Description [facility] [address] [place] [address] Michelle Roth MD [address] [place] [address] Allergies Active Allergy Reactions Criticality [...] Every Month. 1 mL 11 09/30/2023 Active Galcanezumab-gnlm 120 MG/ML Subcutaneous Solution Auto-injector (Emgality) Inject 120 mg under the skin once monthly. 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 SHIN RESEARCH OTHER*[id number] 02/03/2006 Anxiety state 08/07/2005 AGORAPHOBIA 08/07/2005 Class [...] encounter Miscellaneous Notes * Telephone Encounter - Washington De Leon RPh - 09/30/2023 4:27 PM EDT Forwarding to Poppy Rajat VickersD Clinical Pharmacist [facility] 4:27 PM, 09/30/2023 documented in this encounter Plan of Treatment Upcoming Encounters Date Type Department Care Team (Late st Contact Info) Description 10/02/2023 2:15 PM EDT Imaging Radiology [address] [facility] [place] [address] 10/07/2023 6:30 AM EDT Anticoagulation Pharmacy Call Center [phone] [facility] [place] [address] [facility] 58 60 [facility] [place] [address] 10/09/2023 9:30 AM EDT Office Visit Gastroenterology, [facility] [address] [facility] [place] [address] Annabelle Ramirez CRNP 132 [facility] [place] [address] 10/15/2023 11:40 AM EDT Office Visit [facility] [address] [place] [phone] Jessee Wisdom MD [address] [place] [address] 09/14/2024 10:40 AM EDT Telemedicine Neurology, [facility] [address] [place] [address] Michelle Roth MD [address] [place] [address] Scheduled Procedures Name Priority Associated Diagnoses Date/Ti [...] this encounter Medical Devices Implanted Type Area Treatment Coordinator Device Identifier Shelf Expiration Date Model / Serial / Lot Alloderm 2x4cm [id number] (8 Units) - [id number] - [id number] Implanted:Qty: 8 on 2015 by [place] Rosado [place] [facility] [place] - Human N/A: Esophagus [employer] 10/21/2016 [id number] / [id number] / [id number] Stent Esoph Endomaxx [id number] - [id number] Implanted:Qty: 1 on 07/09/2013 at [place] [facility] N/A: Esophagus [employer] 07/09/2015 KAIDEN-2315 / / [id number] Stent Esoph Endomaxx 39z255 - [id number] Implanted:Qty: 1 on 12/08/2013 at [place] [facility] [employer] 06/23/2016 KAIDEN-1915 / / [id number] Stent Esoph Endomaxx 56k914 - [id number] Implanted:Qty: 1 on 10/19/2014 by David Rosado MD [place] [facility] N/A: Esophagus [employer] 05/23/2017 KAIDEN-2315 / / [id number] Stent Wallflex Esophogeal 28x1 - [id number] - [id number] Implanted:Qty: 1 on 2015 by David Rosado MD [place] [facility] N/A: Esophagus [employer] : ENDOSCOPY 06/23/2016 [id number] / [id number] / [id number] Stent Wallflex 27 Mm X 22 Mm [id number] Implanted:Qty: 1 on 2015 by David Rosado MD [place] [facility] N/A: Esophagus [employer] : ENDOSCOPY [id number] / / Stent Eso Gw 66w204 [id number] - [id number] Implanted:Qty: 1 on 02/16/2015 by David Rosado MD [place] [facility] N/A: Esophagus [employer] 04/23/2017 [id number] / / [id number] Screw Ti Locking 1.8mm 497.78 - [id number] Implanted:Qty: 8 on 09/27/2021 by Messi Doll MD at [place] [facility] Right: Spine Cervical SYNTHES 497.78 / / Screw Ti Expans 4.35mm 487.054 - [id number] Implanted:Qty: 8 on 09/27/2021 by Messi Doll MD at [place] [facility] Right: Spine Cervical SYNTHES 487.054 / / Plate Cslp 487.355 - [id number] Implanted:Qty: 1 on 09/27/2021 by Messi Doll MD at [place] [facility] Right: Spine Cervical SYNTHES 487.355 / / Cervical Vertigraft 5x7 - [id number] - [id number] Implanted:Qty: 1 on 09/27/2021 by Messi Doll MD at [place] [facility] Right: Spine Cervical LIF[employer]ET 01/23/2026 [id number]-[id number] / [id number] [id number] / [id number] Cervical Vertigraft 6x8 - [id number] - [id number] Implanted:Qty: 1 on 09/27/2021 by Messi Doll MD at [place] [facility] Right: Spine Cervical [employer]ET 11/10/2025 [id number]-[id number] / [id number] [id number] / [id number] Cervical Vertigraft 5x7 - [id number] - [id number] Implanted:Qty: 1 on 09/27/2021 by Messi Doll MD at [place] [facility] Right: Spine Cervical LIFENET 04/09/2026 [id number] / [id number] / [id number] documented as of this encounter Advance [...] the patient have Health Care Power of Sprinkling System Irrigator? No Full Code 01/12/2015 10:35 PM 01/21/2015 4:44 PM Question Answer Comments Discussion of Advance Directives occurred with: Not Discussed Full Code 12/22/2014 4:26 AM 12/25/2014 5:53 PM This or nu reflects the patients wishes and were consensually agreed upon. Question Answer Comments Discussion of Advance Directives occurred with: Patient Care Teams Malt Roaster Relationship Specialty Start Date End Date Jessee Wisdom MD [address] [facility] [place] [address] PCP - General Family Medicine 06/20/17 documented as of this encounter
--- OUTSIDE RECORDS SUMMARY | 2023-10-28 10:26 | External Medical Summary | Summary of Care ---
Author Name Unknown Organization [facility] Address [address] [place] [address] Phone [phone] Care Team Providers Care Recruitment Officer Name Role Phone Jessee Wisdom MD Primary Care Provider +1- [phone] Reason for Visit * Reason Comments Dosage Adjustment Via Phone (anticoag Cl inic) Encounter Details Date Type Department Care Team (Latest Contact Info) Description 09/23/2023 6:30 AM EDT Anticoagulation Pharmacy Call Center [phone] [place] [address] [facility] 58 60 [facility] [place] [address] Recurrent pulmonary emboli (HCC)* Allergies Active Allergy Reactions Criticality Noted Date Comments Ciprofloxacin Nausea/vomiting 01/04/2023 Clindamycin Other (Please comment) 09/19/2020 Stomach pain Latex Rash 07/23/2006 Prolonged exposure only Morphine Other (Please comment) High 02/06/2020 Sulfa Antibiotics Hives 05/05/2004 documented as of this encounter (statuses as of 09/23/2023) Medications Medication Sig Dispensed Refills Start Date [...] a week. 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 SHIN RESEARCH OTHER*[id number] 02/03/2006 Anxiety state 08/07/2005 AGORAPHOBIA 08/07/2005 Class 2 obesity without seri ous comorbidity with body mass index (BMI) of 39.0 to 39.9 in adult 04/22/2000 Overview: Per Obesity Taxonomy documented as of this encounter (statuses as of 09/23/2023) Resolved Problems Problem Noted Date Diagnosed Date [...] as of this encounter (statuses as of 09/23/2023) Immunizations Name Administration Dates Next Due 08/07/2016, [...] as of this encounter Progress Notes * Vianca Villegas CPhT - 09/23/2023 9:35 AM EDT Contacts Type Contact Phone/Fax 09/23/2023 09:32 AM EDT Phone (Outgoing) Ashley Morales (Self) [phone] (M) Spoke to Patient Subjective Patient Findings Negatives: Signs/symptoms of bleeding, Change in health, Change in activity, Upcoming invasive procedure, Missed doses, Extra doses, Change in medications, Change in diet/appetite, Bruising Advised patient to contact Anticoagulation Clinic if any unusual bruising or bleeding, recent illness, changes in medication, or questions/concerns. PT/INR results, Coumadin dose instructions, and next PT/INR date communicated as noted by Pharmacist: Yes VIANCA VILLEGAS CPhT 09/23/2023, 9:35 AM * China Lipscomb RPh - 09/23/2023 7:49 AM EDT Images from the original note were not included. Coumadin Clinic (region specific) Objective Current Warfarin Dose As of 09/23/2023 Warfarin maintenance plan: 5 mg (5 mg x 1) every Tue, [place]; 2.5 mg (5 mg x 0.5) all other days INR Result As of 09/23/2023 INR goal: 2.0-3.0 INR used for dosin.1 (09/21/2023) Assessment & Plan Warfarin Plan As of 09/23/2023 Full warfarin instructions: 09/22: Hold; Otherwise 5 mg every Tue, [place]; 2.5 mg all other days Next INR check: 10/05/2023 Repeat PT/INR in 2 week(s)- confirm pt still using home machine Weekly dose: not changed Additional Dosing Information: Description Home machine every 2 weeks Ensure daily Tech to contact patient with dose instructions as noted. China Lipscomb RPh 09/23/2023, 7:49 AM documented in this encounter Plan of Treatment Upcoming Encounters Date Type Department Care Team (Late st Contact Info) Description 09/26/2023 10:30 AM EDT Imaging Radiology [facility] [address] [facility] [address] [place] [address] 09/30/2023 1:00 PM EDT Nurse Only Ancillary Department, [place] [address] [place] [address] Eva, Nurse Annual Wellness [address] [place] [address] 10/09/2023 9:30 AM EDT Office Visit Gastroenterology, [facility] [address] [facility] [place] [address] Annabelle Ramirez CRNP 132 [place] [address] 10/15/2023 11:40 AM EDT Office Visit Family Practice, [place] [address] [place] [address] Jessee Wisdom MD [address] [place] [address] 09/14/2024 10:40 AM EDT Telemedicine Neurology, [place] [address] [place] [address] Michelle Roth MD [address], [place] [address] Scheduled Procedures Name Priority Associated Diagnoses Date/Ti [...] this encounter Medical Devices Implanted Type Area Loan Officer Assistant Device Identifier Shelf Expiration Date Model / Serial / Lot Alloderm 2x4cm [id number] (8 Units) - [id number] - [id number] Implanted:Qty: 8 on 2015 by David Rosado MD [place] [facility] Tissue - Human N/A: Esophagus [employer] 10/21/2016 [id number] / [id number] / [id number] Stent Esoph Endomaxx 90m937 - [id number] Implanted:Qty: 1 on 07/09/2013 at [place] [facility] N/A: Esophagus [employer] 07/09/2015 KAIDEN-2315 / / [id number] Stent Esoph Endomaxx 21b701 - [id number] Implanted:Qty: 1 on 12/08/2013 at [place] [facility] [employer] 06/23/2016 KAIDEN-1915 / / [id number] Stent Esoph Endomaxx 78r621 - [id number] Implanted:Qty: 1 on 10/19/2014 by David Rosado MD at [place] [facility] N/A: Esophagus [employer] 05/23/2017 KAIDEN-2315 / / [id number] Stent Wallflex Esophogeal 28x1 - [id number] - [id number] Implanted:Qty: 1 on 2015 by David Rosado MD at [place] [facility] N/A: Esophagus [employer] : ENDOSCOPY 06/23/2016 [id number] / [id number] / [id number] Stent Wallflex 27 Mm X 22 Mm [id number] Implanted:Qty: 1 on 2015 by David Rosado MD at [place] [facility] N/A: Esophagus [employer] : ENDOSCOPY [id number] / / Stent Eso Gw [id number] 59828-090 - [id number] Implanted:Qty: 1 on 02/16/2015 by David Rosado MD at [place] [facility] N/A: Esophagus [employer] 04/23/2017 [id number] / / [id number] Screw Ti Locking 1.8mm 497.78 - [id number] Implanted:Qty: 8 on 09/27/2021 by Messi Doll MD at [place] [facility] Right: Spine Cervical SYNTHES 497.78 / / Screw Ti Expans 4.35mm 487.054 - [id number] Implanted:Qty: 8 on 09/27/2021 by Messi Doll MD at [place] [facility] Right: Spine Cervical SYNTHES 487.054 / / Plate Cslp 487.355 - [id number] Implanted:Qty: 1 on 09/27/2021 by Messi Doll MD at [place] [facility] Right: Spine Cervical SYNTHES 487.355 / / Cervical Vertigraft 5x7 - [id number] - [id number] Implanted:Qty: 1 on 09/27/2021 by Messi Doll MD at [place] [facility] Right: Spine Cervical [employer]IF[employer] 01/23/2026 GA9H-D10C / [id number] 086 / [id number] Cervical Vertigraft 6x8 - [id number] - [id number] Implanted:Qty: 1 on 09/27/2021 by Messi Doll MD at [place] [facility] Right: Spine Cervical LIF[employer]ET 11/10/2025 YG2O-E01H / [id number] 053 / [id number] Cervical Vertigraft 5x7 - [id number] - [id number] Implanted:Qty: 1 on 09/27/2021 by Messi Doll MD at [place] [facility] Right: Spine Cervical [employer] 04/09/2026 GE4O-Z07Y / [id number] 091 / [id number] documented as of this encounter Procedures Procedure Name Priority Date/Time Associated Diagnosis Comments OUTSIDE LAB-PT/INR Routine 09/21/2023 documented in this encounter Results * OUTSIDE LAB-PT/INR (09/21/2023) INR-OUTSIDE LAB 3.1 History Per Patient LABORATORY documented in this encounter Visit Diagnoses Diagnosis [...] the patient have Health Care Power of Dance Instructor? No Full Code 01/12/2015 10:35 PM 01/21/2015 4:44 PM Question Answer Comments Discussion of Advance Directives occurred with: Not Discussed Full Code 12/22/2014 4:26 AM 12/25/2014 5:53 PM This or nu reflects the patients wishes and were consensually agreed upon. Question Answer Comments Discussion of Advance Directives occurred with: Patient Care Teams Recruitment Officer Relationship Specialty Start Date End Date Jessee Wisdom MD [address] [place] [address] PCP - General Family Medicine 06/20/17 documented as of this encounter
--- OUTSIDE RECORDS SUMMARY | 2023-10-28 10:26 | External Medical Summary | Summary of Care ---
Author Name Unknown Organization [facility] Address [address] [place] [address] Phone [phone] Care Team Providers Care Branch Sales And Service Representative Name Role Phone Jessee Wisdom MD Primary Care Provider +1- [phone] Reason for Visit * Reason Onset Date Comments Medication Refill 09/23/2023 Encounter Details Date Type Department Care Team (Late st Contact Info) Description [facility] [address], [place] [phone] Michelle White MD [address] [place] [address] Intractable chronic migraine without aura and without status migrainosus; Cervicalgia Allergies Active Allergy Reactions Criticality Noted Date Comments Ciprofloxacin Nausea/vomiting 01/04/2023 Clindamycin Other (Please comment) 09/19/2020 Stomach pain Latex Rash 07/23/2006 Prolonged exposure only Morphine Other (Please comment) High 02/06/2020 Sulfa Antibiotics Hives 05/05/2004 documented as of this encounter (statuses as of 09/24/2023) Medications Medication Sig Dispensed Refills Start Date [...] a week. 48 Tablet 1 09/24/2023 Active Eletriptan Hydrobromide 40 MG Oral Tablet (Relpax)Indications :Intractable chronic migraine without aura and without status migrainosus,Cervica lgia Take one half to one tablet by mouth at start of headache; may repeat once after two hours. Take up to 2 days a week. 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 SHIN RESEARCH OTHER*[id number] 02/03/2006 Anxiety state 08/07/2005 AGORAPHOBIA 08/07/2005 Class 2 obesity without seri ous comorbidity with body mass index (BMI) of 39.0 to 39.9 in adult 04/22/2000 Overview: Per Obesity Taxonomy documented as of this encounter (statuses as of 09/24/2023) Resolved Problems Problem Noted Date Diagnosed Date [...] as of this encounter (statuses as of 09/24/2023) Immunizations Name Administration Dates Next Due 08/07/2016, [...] encounter Miscellaneous Notes * Telephone Encounter - Olaf Melara RPh - 09/24/2023 2:44 PM EDT Signed Prescriptions: Disp Refills Eletriptan Hydrobromide 40 MG Oral Tablet *48 Tab*1 Sig: Take one half to one tablet by mouth at start of headache; may repeat once after two hours. Take up to 2 days a week.Authorizing Provider: MICHELLE WHITE User: OLAF MELARA documented in this encounter Plan of Treatment Upcoming Encounters Date Type Department Care Team (Late st Contact Info) Description 09/26/2023 10:30 AM EDT Imaging Radiology [address] [place] [address] 09/30/2023 1:00 PM EDT Nurse Only Ancillary Department, [place] [address] [place] [address] Laura Nurse Annual Wellness [address] [place] [address] 10/07/2023 6:30 AM EDT Anticoagulation Pharmacy Call Center [address] [place] [address] [facility] [address] [facility] [place] [address] 10/09/2023 9:30 AM EDT Office Visit Gastroenterology, [facility] [address] [place] [address] Annabelle Ramirez CRNP [address] [place] [address] 10/15/2023 11:40 AM EDT Office Visit [facility] [address] [place] [phone] Jessee Wisdom MD [address] [place] [address] 09/14/2024 10:40 AM EDT [facility] [address] [place] [address] Michelle White MD [address] [place] [address] Scheduled Procedures Name Priority Associated Diagnoses Date/Ti [...] this encounter Medical Devices Implanted Type Area Security Sergeant Device Identifier Shelf Expiration Date Model / Serial / Lot Alloderm 2x4cm [id number] (8 Units) - [id number] - [id number] Implanted:Qty: 8 on 2015 by David Rosado MD at [place] [facility] [place] Tissue - Human N/A: Esophagus [employer] 10/21/2016 [id number] / [id number] / [id number] Stent Esoph Endomaxx 72w685 - [id number] Implanted:Qty: 1 on 07/09/2013 at [place] [facility] [place] N/A: Esophagus [employer] 07/09/2015 KAIDEN-2315 / / [id number] Stent Esoph Endomaxx 27d287 - [id number] Implanted:Qty: 1 on 12/08/2013 at [place] [facility] [employer] 06/23/2016 KAIDEN-1915 / / [id number] Stent Esoph Endomaxx 71h547 - [id number] Implanted:Qty: 1 on 10/19/2014 by David Rosado MD at [place] [facility] N/A: Esophagus [employer] 05/23/2017 KAIDEN-2315 / / [id number] Stent Wallflex Esophogeal 28x1 - [id number] - [id number] Implanted:Qty: 1 on 2015 by David Rosado MD at [place] [facility] N/A: Esophagus [employer] : ENDOSCOPY 06/23/2016 [id number] / [id number] / [id number] Stent Wallflex 27 Mm X 22 Mm 6512 Implanted:Qty: 1 on 2015 by David Rosado MD at [place] [facility] N/A: Esophagus [employer] : ENDOSCOPY [id number] / / Stent Eso Gw [id number] [id number] - [id number] Implanted:Qty: 1 on 02/16/2015 by David Rosado MD at [place] [facility] N/A: Esophagus [employer] 04/23/2017 74946-905 / / [id number] Screw Ti Locking 1.8mm 497.78 - [id number] Implanted:Qty: 8 on 09/27/2021 by Messi Doll MD at [place] [facility] Right: Spine Cervical SYNTHES 497.78 / / Screw Ti Expans 4.35mm 487.054 - [id number] Implanted:Qty: 8 on 09/27/2021 by Messi Doll MD at [place] [facility] Right: Spine Cervical SYNTHES 487.054 / / Plate Cslp 487.355 - [id number] Implanted:Qty: 1 on 09/27/2021 by Messi Doll MD at [place] [facility] Right: Spine Cervical SYNTHES 487.355 / / Cervical Vertigraft 5x7 - [id number] - [id number] Implanted:Qty: 1 on 09/27/2021 by Messi Doll MD at [place] [facility] Right: Spine Cervical LIF[employer]ET 01/23/2026 RJ1I-W84M / [id number] [id number] / [id number] Cervical Vertigraft 6x8 - [id number] - [id number] Implanted:Qty: 1 on 09/27/2021 by Messi Doll MD at [place] [facility] Right: Spine Cervical [employer]ET 11/10/2025 [id number]-T99K / [id number] [id number] / [id number] Cervical Vertigraft 5x7 - [id number] - [id number] Implanted:Qty: 1 on 09/27/2021 by Messi Doll MD at [place] [facility] Right: Spine Cervical [employer] 04/09/2026 VE1I-V56O / [id number] [id number] / [id number] documented as of this encounter Visit Diagnoses Diagnosis Intractable chronic migraine without aura and without status migrainosus Chronic migraine without aura, with intractable migraine, so stated, without mention of status migrainosus Cervicalgia documented in this encounter Advance Directives Latest [...] the patient have Health Care Power of Coating Operator? No Full Code 01/12/2015 10:35 PM 01/21/2015 4:44 PM Question Answer Comments Discussion of Advance Directives occurred with: Not Discussed Full Code 12/22/2014 4:26 AM 12/25/2014 5:53 PM This or nu reflects the patients wishes and were consensually agreed upon. Question Answer Comments Discussion of Advance Directives occurred with: Patient Care Teams Branch Sales And Service Representative Relationship Specialty Start Date End Date Jessee Wisdom MD [address] [facility] [place] [address] PCP - General Family Medicine 06/20/17 documented as of this encounter
--- OUTSIDE RECORDS SUMMARY | 2023-10-28 10:26 | External Medical Summary | Summary of Care ---
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 SHIN RESEARCH OTHER*[id number] 02/03/2006 Anxiety state 08/07/2005 AGORAPHOBIA 08/07/2005 Class [...] Description 09/26/2023 10:30 AM EDT Imaging Radiology [facility], [address] [place] [address] 09/30/2023 1:00 PM EDT Nurse Only Ancillary Department, [place] [address] [place] [address] [place], Nurse Annual Wellness [address] [place] [address] 10/09/2023 9:30 AM EDT Office Visit Gastroenterology, [facility] [address] [place] [address] Annabelle Ramirez CRNP [address] [facility] [address] 10/15/2023 11:40 AM EDT Office Visit Family Practice, [place] [address] [place] [phone] Jessee Wisdom MD [address] [place] [address] 09/14/2024 10:40 AM EDT [facility] [address] [place] [address] Michelle Roth MD [address], [place] [id number] Scheduled Procedures Name Priority Associated Diagnoses Date/Ti me COLONOSCOPY FLEXIBLE PROXIMA L DIAGNOSTIC Recall Family history of colonic polyps Health Maintenance Due Date Last Done Comments MENINGOCOCCAL (MENACTRA/MENVEO) (2 - Risk 2-dose series) 12/20/2014 10/25/2014, 10/25/2014 Mammogram 03/29/2015 03/29/2014, 10/22, 09/03/2008 COVID-19 Vaccine ( season) 2023 10/13/2020, 09/10/2020 Depression Screening 09/22/2023 09/21/2022 Lipid Panel 02/22/2025 02/23/2020, 03, 05/10/2008, Additional history exists Diabetes Screening 07/23/2026 [...] this encounter Medical Devices Implanted Type Area Mortgage Loan Computation Clerk Device Identifier Shelf Expiration Date Model / Serial / Lot Alloderm 2x4cm [id number] (8 Units) - [id number] - [id number] Implanted:Qty: 8 on 2015 by David Rosado MD at OR [facility] Tissue - Human N/A: Esophagus [employer] 10/21/2016 [id number] / [id number] / [id number] Stent Esoph Endomaxx [id number] - [id number] Implanted:Qty: 1 on 07/09/2013 at OR [facility] N/A: Esophagus [employer] 07/09/2015 [id number]-[id number] / / [id number] Stent Esoph Endomaxx [id number] - [id number] Implanted:Qty: 1 on 12/08/2013 at OR [facility] [employer] 06/23/2016 [id number]-1915 / / [id number] Stent Esoph Endomaxx [id number] - [id number] Implanted:Qty: 1 on 10/19/2014 by David Rosado MD at OR [facility] N/A: Esophagus [employer] 05/23/2017 [id number]-2315 / / [id number] Stent Wallflex Esophogeal 28x1 - [id number] - [id number] Implanted:Qty: 1 on 2015 by David Rosado MD at OR [facility] N/A: Esophagus [employer] : ENDOSCOPY 06/23/2016 [id number] / [id number] / [id number] Stent Wallflex 27 Mm X 22 Mm [id number] Implanted:Qty: 1 on 2015 by David Rosado MD at OR [facility] N/A: Esophagus [employer] : ENDOSCOPY [id number] / / Stent Eso Gw [id number] - [id number] Implanted:Qty: 1 on 02/16/2015 by David Rosado MD at OR [facility] N/A: Esophagus [employer] 04/23/2017 [id number] / / [id number] Screw Ti Locking 1.8mm 497.78 - [id number] Implanted:Qty: 8 on 09/27/2021 by Messi Doll MD at OR [facility] Right: Spine Cervical SYNTHES 497.78 / / Screw Ti Expans 4.35mm 487.054 - [id number] Implanted:Qty: 8 on 09/27/2021 by eMssi Doll MD at OR [facility] Right: Spine Cervical SYNTHES 487.054 / / Plate Cslp 487.355 - [id number] Implanted:Qty: 1 on 09/27/2021 by Messi Doll MD at OR [facility] Right: Spine Cervical SYNTHES 487.355 / / Cervical Vertigraft 5x7 - [id number] - [id number] Implanted:Qty: 1 on 09/27/2021 by Messi Doll MD at OR [facility] Right: Spine Cervical [employer] 01/23/2026 [id number] / [id number] / [id number] Cervical Vertigraft 6x8 - [id number] - [id number] Implanted:Qty: 1 on 09/27/2021 by Messi Doll MD at OR [facility] Right: Spine Cervical [employer] 11/10/2025 [id number] / [id number] / [id number] Cervical Vertigraft 5x7 - [id number] - [id number] Implanted:Qty: 1 on 09/27/2021 by Messi Doll MD at OR [facility] Right: Spine Cervical [employer] 04/09/2026 [id number] / [id number] / [id number] documented as of this encounter Procedures Procedure Name Priority Date/Time Associated Diagnosis Comments OUTSIDE LAB RESULTS 09/21/2023 documented in this encounter Results * OUTSIDE LAB RESULTS (09/21/2023) 09/21/2023 No Physician Data Unknown LABORATORY documented in this encounter Advance Directives [...] the patient have Health Care Power of Transit Worker? No Full Code 01/12/2015 10:35 PM 01/21/2015 4:44 PM Question Answer Comments Discussion of Advance Directives occurred with: Not Discussed Full Code 12/22/2014 4:26 AM 12/25/2014 5:53 PM This or nu reflects the patients wishes and were consensually agreed upon. Question Answer Comments Discussion of Advance Directives occurred with: Patient Care Teams Geospatial Engineer Relationship Specialty Start Date End Date Jessee Wisdom MD [address] [place] [address] PCP - General Family Medicine 06/20/17 documented as of this encounter
--- OUTSIDE RECORDS SUMMARY | 2023-10-28 10:26 | External Medical Summary | Summary of Care ---
Author Name Unknown Organization [facility] Address [address] [place] [address] Phone [phone] Care Team Providers Care Bobbin Inspector Name Role Phone Jessee Wisdom MD Primary Care Provider [phone]- [phone] Reason for Visit * Reason Comments Forms Request Pt here to have radha r work that need filled out.Pt did have a fall last week due to dizziness Encounter Details Date Type Department Care Team (Late st Contact Info) Description 09/27/2023 12:40 PM EDT Office Visit [facility] [address] [place] [address] Shelly Castaneda MD [address] [place] [address] Chronic migraine with aura without status migrainosus, not intractable*; Migraine variant, intractable; S/P cervical spinal fusion; Depression with anxiety; Fall, initial encounter; Eye bruise, right, initial encounter Allergies Active Allergy Reactions Criticality Noted Date [...] RELIEF OF NAUSEA 270 Tablet 0 4 01/15/20 25 Active Warfarin Sodium 5 MG Oral [...] 1 mL 11 4 Active DULoxetine HCl 60 MG Oral Capsule Delayed Release Particles (Cymbalta) Take 1 Capsule by mouth in the morning. Do not cut, crush or chew. 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 SHIN RESEARCH OTHER*[id number] 02/03/2006 Anxiety state 08/07/2005 AGORAPHOBIA 08/07/2005 Class [...] Sign Reading Time Taken Comments Blood Pressure 120/80 09/27/2023 12:44 PM EDT Pulse 78 09/27/2023 12:44 PM EDT Temperature 35.6 C (96 F) 09/27/2023 12:44 PM EDT Respiratory Rate 16 09/27/2023 12:44 PM EDT Oxygen Saturation 97% 09/27/2023 12:44 PM EDT Inhaled Oxygen Concentration - - Weight 113.9 kg (251 lb) 09/27/2023 12:44 PM EDT Height - - Body Mass Index 40.51 03/01/2023 5:57 PM EDT documented in this [...] Progress Notes * Shelly Castaneda MD - 09/27/2023 1:07 PM EDT Images from the original note were not included. Subjective Ashley Morales is a 58 year old female. Chief Complaint Patient presents with Forms Request Pt here to have paper work that need filled out. 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 but needs a few more information Signed again - chronic migraine, cervical fusion, chronic pain Had a fall onto her face, bruise ecchymosis on rt eye cheek and nose Getting better, no image test done Ok to observe Depression anxiety , bipolar Taking cymbalta 30 mg Will increase dose PMH: Patient Active Problem List Diagnosis Code Class 2 obesity without serious comorbidity with body mass index (BMI) of 39.0 to 39.9 in adult E66.9, Z68.39 Anxiety state F41.1 AGORAPHOBIA F40.02 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 Insomnia G47.00 SHIN RESEARCH OTHER*[id number] Degeneration of cervical intervertebral disc M50.30 Dysphagia R13.10 Gastric bypass status for obesity Z98.84 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 of 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 Z79.01 Constipation K59.00 Chronic abdominal pain R10.9, G89.29 Depression with anxiety F41.8 Selenium deficiency E59 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 Recurrent pulmonary emboli (HCC) I26.99 Iron deficiency anemia D50.9 Recurrent major depressive disorder, in partial remission ([facility]) F33.41 Gastroesophageal reflux disease without esophagitis K21.9 S/P cervical spinal fusion Z98.1 Chronic pain of right ankle M25.571, G89.29 Migraine without status migrainosus, not intractable G43.909 Other chronic pancreatitis ([facility]) K86.1 Migraine variant, intractable G43.819 Bipolar disorder ([facility]) F31.9 Current Outpatient Medications Medication Sig Dispense [...] nostril in the morning. 16 g 2 Ondansetron 4 MG Oral Tablet Disintegrating (Zofran) TAKE 1-2 TABLETS BY MOUTH EVERY 8 HOURS NEEDED FOR RELIEF OF NAUSEA 270 Tablet 0 Warfarin Sodium 5 MG Oral Tablet (Coumadin) [...] the skin once monthly. 1 mL 11 No current facility-administered medications for this visit. [...] performed by Messi Doll MD at [place] [facility] ARTHRODESIS, ANT INTERBODY, BELOW C-2 Right 09/27/2021 ARTHRODESIS, ANT INTERBODY, BELOW C-2 performed by Messi Doll MD at [place] [facility] ARTHRODESIS,ANT INTERBODY,BELOW C-2,EA ADDL Right 09/27/2021 ARTHRODESIS,ANT INTERBODY,BELOW C-2,EA ADDL performed by Messi Doll MD at [facility] COLONOSCOPY 08/02/2008 Repeat 5 yrs COLONOSCOPY, DIAGNOSTIC (RECTUM) 01/24/2016 normal, repeat 5 yrs/[facility] COLONOSCOPY, DIAGNOSTIC (RECTUM) 02/14/2021 poor prep, repeat 1 yr / COLONOSCOPY FLEXIBLE PROXIMAL DIAGNOSTIC performed by Charline Farooq MD at ENDOSCOPY [facility] COLONOSCOPY, DIAGNOSTIC (RECTUM) 05/02/2022 normal, repeat 5 yrs / COLONOSCOPY FLEXIBLE PROXIMAL DIAGNOSTIC performed by Charline Farooq MD at ENDOSCOPY [facility] COLORECTAL CANCER SCREEN; COLON 11/03/1999 Due 2004 EGD, FLEXIBLE, DIAGNOSTIC 09/26/2012 path shows mild inflammation of esophagus consistant with acid reflux negative for Barretts and mild irritation ofstomach negative for H Pylori EGD, FLEXIBLE, DIAGNOSTIC 12/08/2013 ESOPHAGOGASTRODUODENOSCOPY (EGD), FLEXIBLE, TRANSORAL, DIAGNOSTIC performed by Sabina Guillory III, MD at [facility] EGD, FLEXIBLE, DIAGNOSTIC 02/16/2014 ESOPHAGOGASTRODUODENOSCOPY (EGD), FLEXIBLE, TRANSORAL, DIAGNOSTIC performed by Sabina Guillory III, MD at ENDOSCOPY [facility] EGD, FLEXIBLE, DIAGNOSTIC 01/28/2014 Pre-existing esophageal stent- removal unsuccessful/inpt @ [facility] EGD, FLEXIBLE, DIAGNOSTIC N/A 05/19/2014 ESOPHAGOGASTRODUODENOSCOPY (EGD), FLEXIBLE, TRANSORAL, DIAGNOSTIC performed by Sabina Guillory III, MD at [facility] EGD, FLEXIBLE, DIAGNOSTIC N/A 09/08/2014 ESOPHAGOGASTRODUODENOSCOPY (EGD), FLEXIBLE, TRANSORAL, DIAGNOSTIC performed by Sabina Guillory III, MD at [facility] EGD, FLEXIBLE, DIAGNOSTIC N/A 10/16/2014 ESOPHAGOGASTRODUODENOSCOPY (EGD), FLEXIBLE, TRANSORAL, DIAGNOSTIC performed by Sabina Guillory III, MD at [facility] EGD, FLEXIBLE, DIAGNOSTIC 11/23/2014 ESOPHAGOGASTRODUODENOSCOPY (EGD), FLEXIBLE, TRANSORAL, DIAGNOSTIC performed by Sabina Guillory MD at ENDOSCOPY [facility] EGD, FLEXIBLE, DIAGNOSTIC 01/05/2015 ESOPHAGOGASTRODUODENOSCOPY (EGD), FLEXIBLE, TRANSORAL, DIAGNOSTIC performed by Sabina Guillory MD at [facility] EGD, FLEXIBLE, DIAGNOSTIC N/A 2015 ESOPHAGOGASTRODUODENOSCOPY (EGD), FLEXIBLE, TRANSORAL, DIAGNOSTIC performed by Sabina Guillory MD at [place] [facility] EGD, FLEXIBLE, DIAGNOSTIC N/A 02/16/2015 ESOPHAGOGASTRODUODENOSCOPY (EGD), FLEXIBLE, TRANSORAL, DIAGNOSTIC performed by Sabina Guillory MD at [facility] EGD, FLEXIBLE, DIAGNOSTIC N/A 06/15/2015 ESOPHAGOGASTRODUODENOSCOPY (EGD), FLEXIBLE, TRANSORAL, DIAGNOSTIC performed by Sabina Guillory MD at [place] [facility] EGD, FLEXIBLE, DIAGNOSTIC N/A 10/12/2015 ESOPHAGOGASTRODUODENOSCOPY (EGD), FLEXIBLE, TRANSORAL, DIAGNOSTIC performed by Sabina Guillory MD at [facility] EGD, FLEXIBLE, DIAGNOSTIC 12/23/2018 normal/ESOPHAGOGASTRODUODENOSCOPY (EGD), FLEXIBLE, TRANSORAL, DIAGNOSTIC performed by Radha Montejo DO at ENDOSCOPY [facility] EGD, FLEXIBLE, DIAGNOSTIC 08/12/2020 normal / ESOPHAGOGASTRODUODENOSCOPY (EGD), FLEXIBLE, TRANSORAL, DIAGNOSTIC performed by Clarence Goins MD at ENDOSCOPY [facility] EGD, FLEXIBLE, INSERT WIRE, PASS DILATOR 03/07/2007 UPPER GI ENDOSCOPY WITH GUIDE WIRE DILATION performed by SABINA GUILLORY III at [facility] EGD, FLEXIBLE, REMOVE FOREIGN BODY 11/02/2013 ESOPHAGOGASTRODUODENOSCOPY (EGD), FLEXIBLE, TRANSORAL, WITH REMOVAL FOREIGN BODY performed by Sabina Guillory III, MD at [place] [facility] EGD, FLEXIBLE, REMOVE FOREIGN BODY 02/04/2014 ESOPHAGOGASTRODUODENOSCOPY (EGD), FLEXIBLE, TRANSORAL, WITH REMOVAL FOREIGN BODY performed by Sabina Guillory III, MD at [place] [facility] EGD, FLEXIBLE, REMOVE FOREIGN BODY 02/11/2014 ESOPHAGOGASTRODUODENOSCOPY (EGD), FLEXIBLE, TRANSORAL, WITH REMOVAL FOREIGN BODY performed by Sabina Guillory III, MD at [place] [facility] EGD, FLEXIBLE, REMOVE FOREIGN BODY N/A 06/15/2015 ESOPHAGOGASTRODUODENOSCOPY (EGD), FLEXIBLE, TRANSORAL, WITH REMOVAL FOREIGN BODY performed by Sabina Guillory MD at [place] [facility] EGD, FLEXIBLE, TRANSENDOSCOPIC DILATION <30MM N/A 2015 ESOPHAGOGASTRODUODENOSCOPY (EGD), FLEXIBLE, TRANSORAL, BALLOON DILATION LESS THAN 30MM performed bySabina Guillory MD at [place] [facility] EGD, FLEXIBLE, TRANSENDOSCOPIC DILATION <30MM N/A 02/16/2015 ESOPHAGOGASTRODUODENOSCOPY (EGD), FLEXIBLE, TRANSORAL, BALLOON DILATION LESS THAN 30MM performed bySabina Guillory MD at [place] [facility] EGD, FLEXIBLE, W/DILATE STRICTURES 02/11/2014 ESOPHAGOGASTRODUODENOSCOPY (EGD), FLEXIBLE, TRANSORAL, DILATION GASTRIC OUTLET performed by Yesenia Guillory III, MD at [facility] EGD, FLEXIBLE,ENDO STENT PLACEMENT N/A 10/19/2014 ESOPHAGOGASTRODUODENOSCOPY (EGD), FLEXIBLE, TRANSORAL: STENT PLACEMENT performed by Sabina Guillory III, MD at [facility] EGD, FLEXIBLE,ENDO STENT PLACEMENT N/A 2015 ESOPHAGOGASTRODUODENOSCOPY (EGD), FLEXIBLE, TRANSORAL: STENT PLACEMENT performed by Sabina Guillory MD at [facility] EGD, FLEXIBLE,ENDO STENT PLACEMENT N/A 02/16/2015 ESOPHAGOGASTRODUODENOSCOPY (EGD), FLEXIBLE, TRANSORAL: STENT PLACEMENT performed by Sabina Guillory MD at [facility] EGD, FLEXIBLE,W/ENDOSCOPIC US 02/12/2020 [place] [facility] ESOPHAGOSCOPY, FLEXIBLE, TRANSENDOSCOPIC DILATION <30MM 07/09/2013 ESOPHAGOSCOPY BALLOON DILATION LESS THAN 30MM performed by Sabina Guillory III, MD at [facility] EXPLORATION OF ABDOMEN 05/14/2013 EXPLORATORY LAPAROTOMY performed by Sabina Guillory III, MD at [facility] EXPLORATION OF ABDOMEN N/A 10/16/2014 EXPLORATORY LAPAROTOMY performed by Sabina Guillory III, MD at [facility] EXPLORATION OF ABDOMEN N/A 10/19/2014 EXPLORATORY LAPAROTOMY performed by Sabina Guillory III, MD at [facility] GASTRIC REVISION FOR OBESITY 08/08/2006 Performed by SABINA GUILLORY III at [facility] Log [id number] INJECT DX/THER SUBSTANCE INTERLAMINAR CERVICAL/THORACIC W IMAGE GUIDE N/A 01/23/2021 INJECTION SPINE LUMBAR CERVICAL OR THORACIC performed by Adolfo Brooks DO at OR [facility] IOF CT GUIDED NEEDLE BIOPSY 05/18/2013 CT GUIDED NEEDLE ASPIRATION BIOPSY performed by Kenneth Greenwood PA-C at RADIOLOG[facility] IR DRAINAGE ABSCESS/SPECIMEN W CATHETER PLACEMENT 07/14/2013 RADIOLOGICAL GUIDANCE FOR ABSCESS DRAINAGE performed by Kenneth Greenwood PA-C at RADIOLOGY [facility] IR DRAINAGE ABSCESS/SPECIMEN W CATHETER PLACEMENT 08/14/2013 RADIOLOGICAL GUIDANCE FOR ABSCESS DRAINAGE performed by Kenneth Greenwood PA-C at RADIOLOGY [facility] IR US GUIDED THORACENTESIS 05/20/2013 THORACENTESIS FOR ASPIRATION W/ IMAGING performed by Amy Curry MD at RAD[facility] REMOVAL OF SPLEEN, TOTAL, EN BLOC N/A 10/16/2014 SPLENECTOMY TOTAL WITH OTHER PROCEDURE performed by Sabina Guillory III, MD at [facility] REMOVE GALLBLADDER REMOVE STOMACH, PARTIAL 05/07/2013 GASTRECTOMY PARTIAL WITH GASTROJEJUNOSTOMY performed by Sabina Guillory III, MD at [facility] REVISION OF ANKLE JOINT right SPINE FIX DEV, ANT, 4-7 SEG, INSERT Right 09/27/2021 ANTERIOR INSTRUMENTATION 4 TO 7 VERTEBRAL SEGMENTS performed by Messi Doll MD at [facility] TOTAL ABD HYSTERECTOMY W/WO REMOVAL OF TUBE(S) 10/02/2010 ABISAI/BSO WEDGE BIOPSY OF LIVER 08/08/2006 Performed by SABINA GUILLORY III at [facility] Log [id number] WEDGE BIOPSY OF LIVER 05/07/2013 BIOPSY OF LIVER WEDGE performed by Sabina Guillory III, MD at [facility] Review of patient's allergies indicates: Allergen Reactions [...] Comment: disability-depression/migraines Tobacco Use Smoking status: Former Current packs/day: 0.00 Average packs/day: 0.5 packs/day for 3.0 years (1.5 ttl pk-yrs) Types: Cigarettes Start date: 02/12/2017 Quit date: 02/13/2020 Years since quittin.6 Passive exposure: Past Smokeless tobacco: Never Vaping [...] Resource Strain: Not on file Food Insecurity: Patient Declined (09/27/2023) Hunger Vital Sign Worried About Running Out of Food in the Last Year: Patient declined Ran Out of Food in the Last Year: Patient declined Transportation Needs: Not on file Physical Activity: Not on file Stress: Not on file Social Connections: Not on file Intimate Partner Violence: Not on file Housing Stability: Not on file Review of Systems Constitutional: Positive for activity change and fatigue. Negative for appetite change, chills, diaphoresis, fever and unexpected weight change. HENT: Positive for facial swelling. Negative for nosebleeds. Eyes: Positive for pain. Negative for photophobia, discharge, redness, itching and visual disturbance. Respiratory: Negative. Cardiovascular: Negative. Skin: Positive for color change (bruise on face, nose). Neurological: Positive for headaches. Negative for dizziness and light-headedness. Psychiatric/Behavioral: Positive for dysphoric mood and sleep disturbance. Negative for agitation and behavioral problems. The patient is nervous/anxious. Objective BP 120/80 | Pulse 78 | Temp 35.6 C (96 F) (Infrared ) | Resp 16 | Wt 113.9 kg (251 lb) | LMP 09/03/2010 | SpO2 97% | BMI 40.51 kg/m | BSA 2.3 m Physical Exam Constitutional: General: She is not in acute distress. Appearance: Normal appearance. She is obese. She is not ill-appearing, toxic- appearing or diaphoretic. HENT: Head: Eyes: Extraocular Movements: Extraocular movements intact. Musculoskeletal: General: Tenderness (knees) present. Neurological: General: No focal deficit present. Mental Status: She is alert and oriented to person, place, and time. Psychiatric: Behavior: Behavior normal. Comments: depression ASSESSMENT/PLAN: Chronic migraine with aura without status migrainosus, not intractable (Primary) Migraine variant, intractable S/P cervical spinal fusion Depression with anxiety Fall, initial encounter Eye bruise, right, initial encounter Other orders - DULoxetine HCl 60 MG Oral Capsule Delayed Release Particles (Cymbalta); Take 1 Capsule by mouth in the morning. Do not cut, crush or chew. Form - signed Increase dose of cymbalta Shelly Castaneda MD documented in this encounter Nursing Notes * Luann Parker LPN - 09/27/2023 12:41 PM EDT Chief Complaint Patient presents with Forms Request Pt here to have paper work that need filled out. Pt did have a fall last week due to dizziness documented in this encounter Plan of Treatment Upcoming Encounters Date Type Department Care Team (Late st Contact Info) Description 09/30/2023 1:00 PM EDT Nurse Only Ancillary Department, [place] [address] [place] [address] [place], Nurse Annual Wellness [address] [place] [address] 10/02/2023 2:15 PM EDT Imaging Radiology [facility] 1st [facility], [address] [place] [address] 10/07/2023 6:30 AM EDT Anticoagulation Pharmacy Call Center [phone] [facility] [place] [address] [facility] [address] [facility] [place] [address] 10/09/2023 9:30 AM EDT Office Visit Gastroenterology, [facility] [address] [facility] [place] [address] Annabelle Ramirez CRNP [address] [place] [address] 10/15/2023 11:40 AM EDT Office Visit [facility] [address] [place] [id number] Jessee Wisdom MD [address] [place] [address] 09/14/2024 10:40 AM EDT [facility] [address] [place] [address] Michelle Roth MD [address] [place] [address] Scheduled Procedures Name Priority Associated Diagnoses Date/Ti [...] this encounter Medical Devices Implanted Type Area Fence Builder Device Identifier Shelf Expiration Date Model / Serial / Lot Alloderm 2x4cm [id number] (8 Units) - [id number] - [id number] Implanted:Qty: 8 on 2015 by Sabina Guillory MD at [place] [facility] Tissue - Human N/A: Esophagus [employer] 10/21/2016 [id number] / [id number] / [id number] Stent Esoph Endomaxx [id number] - [id number] Implanted:Qty: 1 on 07/09/2013 at [place] [facility] N/A: Esophagus [employer] 07/09/2015 [id number]-[id number] / / [id number] Stent Esoph Endomaxx 20l900 - [id number] Implanted:Qty: 1 on 12/08/2013 at [place] [facility] In[employer] 06/23/2016 [id number]-[id number] / / [id number] Stent Esoph Endomaxx 19r584 - [id number] Implanted:Qty: 1 on 10/19/2014 by Sabina Guillory MD at [place] [facility] N/A: Esophagus [employer] 05/23/2017 [id number]-[id number] / / [id number] Stent Wallflex Esophogeal 28x1 - [id number] - [id number] Implanted:Qty: 1 on 2015 by Sabina Guillory MD at [place] [facility] N/A: Esophagus [employer] : ENDOSCOPY 06/23/2016 [id number] / [id number] / [id number] Stent Wallflex 27 Mm X 22 Mm [id number] Implanted:Qty: 1 on 2015 by Sabina Guillory MD at [place] [facility] N/A: Esophagus [employer] : ENDOSCOPY [id number] / / Stent Eso Gw [id number] - [id number] Implanted:Qty: 1 on 02/16/2015 by Sabina Guillory MD at [place] [facility] N/A: Esophagus [employer] 04/23/2017 [id number] / / [id number] Screw Ti Locking 1.8mm 497.78 - [id number] Implanted:Qty: 8 on 09/27/2021 by Messi Doll MD at [place] [facility] Right: Spine Cervical SYNTHES 497.78 / / Screw Ti Expans 4.35mm 487.054 - [id number] Implanted:Qty: 8 on 09/27/2021 by Messi Doll MD at OR [facility] Right: Spine Cervical SYNTHES 487.054 / / Plate Cslp 487.355 - [id number] Implanted:Qty: 1 on 09/27/2021 by Messi Doll MD at OR [facility] Right: Spine Cervical SYNTHES 487.355 / / Cervical Vertigraft 5x7 - [id number] - [id number] Implanted:Qty: 1 on 09/27/2021 by Messi Doll MD at [place] [facility] Right: Spine Cervical [employer] 01/23/2026 [id number] / [id number] / [id number] Cervical Vertigraft 6x8 - [id number] - [id number] Implanted:Qty: 1 on 09/27/2021 by Messi Doll MD at [place] [facility] Right: Spine Cervical [employer] 11/10/2025 [id number] / [id number] / [id number] Cervical Vertigraft 5x7 - [id number] - [id number] Implanted:Qty: 1 on 09/27/2021 by Messi Doll MD at [place] [facility] Right: Spine Cervical [employer] 04/09/2026 [id number] / [id number] / [id number] documented as of this encounter Visit Diagnoses Diagnosis Chronic migraine with aura without status migrainosus, not intractable- Primary Migraine variant, intractable Variants of migraine, not elsewhere classified, with intractable migraine, so stated, without mention of status migrainosus S/P cervical spinal fusion Arthrodesis status Depression with anxiety Dysthymic disorder Fall, initial encounter Eye bruise, right, initial encounter documented in this encounter Advance Directives Latest [...] the patient have Health Care Power of Cement [place] Maintenance? No Full Code 01/12/2015 10:35 PM 01/21/2015 4:44 PM Question Answer Comments Discussion of Advance Directives occurred with: Not Discussed Full Code 12/22/2014 4:26 AM 12/25/2014 5:53 PM This or nu reflects the patients wishes and were consensually agreed upon. Question Answer Comments Discussion of Advance Directives occurred with: Patient Care Teams Bobbin Inspector Relationship Specialty Start Date End Date Jessee Wisdom MD [address] [place] [address] PCP - General Family Medicine 06/20/17 documented as of this encounter"
--- OUTSIDE RECORDS SUMMARY | 2023-10-28 10:27 | External Medical Summary | Summary of Care ---
Author Name Unknown Organization [facility] Address [address] [place] [address] Phone [phone] Care Team Providers Care Spooling Supervisor Name Role Phone Jessee Wisdom MD Primary Care Provider [phone]- [phone] Reason for Visit * Reason Onset Date Comments Referral 09/10/2023 Encounter Details Date Type Department Care Team (Late st Contact Info) Description 09/10/2023 Telephone [facility] [address] [place] [address] Jessee Wisdom MD [address] [place] [address] Referral Allergies Active Allergy Reactions Criticality Noted Date Comments Ciprofloxacin Nausea/vomiting 01/04/2023 Clindamycin Other (Please comment) 09/19/2020 Stomach pain Latex Rash 07/23/2006 Prolonged exposure only Morphine Other (Please comment) High 02/06/2020 Sulfa Antibiotics Hives 05/05/2004 documented as of this encounter (statuses as of 09/11/2023) Medications Medication Sig Dispensed Refills Start Date [...] a week. 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 09/11/2023 * Telephone Encounter - Jessee Wisdom MD - 09/10/2023 2:27 PM EDT Please set up for GI referral for hospital follow up for pancreatitis documented in this encounter Plan of Treatment Upcoming Encounters Date Type Department Care Team (Late st Contact Info) Description 09/23/2023 6:45 PM EDT Anticoagulation Pharmacy Call Center [facility] [phone] [facility] [place] [address] [facility] [address] [facility] [place] [address] 09/30/2023 1:00 PM EDT Nurse Only [facility] [place] [address] [facility] [address] [place] [address] [facility] [id number] 10/09/2023 9:30 AM EDT Office Visit Gastroenterology, [facility] [address] [place] [address] Annabelle Ramirez CRNP [address] [place] [address] 10/15/2023 11:40 AM EDT Office Visit [facility] [address] [place] [id number] Jessee Wisdom MD [address] [place] [address] 09/14/2024 10:40 AM EDT [facility] [address] [place] [address] Michelle Roth MD [address] [place] [address] Scheduled Procedures Name Priority Associated [...] this encounter Medical Devices Implanted Type Area Press Assistant And Feeder Device Identifier Shelf Expiration Date Model / Serial / Lot Alloderm 2x4cm [id number] (8 Units) - [id number] - [id number] Implanted:Qty: 8 on 2015 by David Rosado MD [place] [facility] [place] Tissue - Human N/A: Esophagus [employer] 10/21/2016 [id number] / [id number] / [id number] Stent Esoph Endomaxx 09n913 - [id number] Implanted:Qty: 1 on 07/09/2013 at [place] [facility] [place] N/A: Esophagus [employer] 07/09/2015 [id number]-[id number] / / [id number] Stent Esoph Endomaxx 95b400 - [id number] Implanted:Qty: 1 on 12/08/2013 at [place] [facility] [place] [employer] 06/23/2016 [id number]-[id number] / / [id number] Stent Esoph Endomaxx 85e759 - [id number] Implanted:Qty: 1 on 10/19/2014 by David Rosado MD at [place] [facility] [place] N/A: Esophagus [employer] 05/23/2017 [id number]-2315 / / [id number] Stent Wallflex Esophogeal 28x1 - [id number] - [id number] Implanted:Qty: 1 on 2015 by David Rosado MD at [place] [facility] [place] N/A: Esophagus [employer] Authoria : ENDOSCOPY 06/23/2016 [id number] / [id number] / [id number] Stent Wallflex 27 Mm X 22 Mm [id number] Implanted:Qty: 1 on 2015 by David Rosado MD at [place] [facility] [place] N/A: Esophagus [employer] : ENDOSCOPY [id number] / / Stent Eso Gw [id number] - [id number] Implanted:Qty: 1 on 02/16/2015 by David Rosado MD at [place] [facility] [place] N/A: Esophagus [employer] 04/23/2017 [id number] / / [id number] Screw Ti Locking 1.8mm 497.78 - [id number] Implanted:Qty: 8 on 09/27/2021 by Messi Doll MD at [place] [facility] [place] Right: Spine Cervical SYNTHES 497.78 / / Screw Ti Expans 4.35mm 487.054 - [id number] Implanted:Qty: 8 on 09/27/2021 by Messi Doll MD at [place] [facility] [place] Right: Spine Cervical SYNTHES 487.054 / / Plate Cslp 487.355 - [id number] Implanted:Qty: 1 on 09/27/2021 by Messi Doll MD at [place] [facility] [place] Right: Spine Cervical SYNTHES 487.355 / / Cervical Vertigraft 5x7 - [id number] - [id number] Implanted:Qty: 1 on 09/27/2021 by Messi Doll MD at [place] [facility] [place] Right: Spine Cervical [employer] 01/23/2026 [id number] / [id number] Cervical Vertigraft 6x8 - [id number] - [id number] Implanted:Qty: 1 on 09/27/2021 by Messi Doll MD at [place] [facility] [place] Right: Spine Cervical [employer] 11/10/2025 [id number] / [id number] / [id number] Cervical Vertigraft 5x7 - [id number] - [id number] Implanted:Qty: 1 on 09/27/2021 by Messi Doll MD at [place] [facility] [place] Right: Spine Cervical [employer] 04/09/2026 [id number] / [id number] / [id number] documented as of this encounter Advance [...] the patient have Health Care Power of Eyelet Row Marker? No Full Code 01/12/2015 10:35 PM 01/21/2015 4:44 PM Question Answer Comments Discussion of Advance Directives occurred with: Not Discussed Full Code 12/22/2014 4:26 AM 12/25/2014 5:53 PM This or nu reflects the patients wishes and were consensually agreed upon. Question Answer Comments Discussion of Advance Directives occurred with: Patient Care Teams Spooling Supervisor Relationship Specialty Start Date End Date Jessee Wisdom MD [address] [place] [facility] [place] [facility] [place] [address] PCP - General Family Medicine 06/20/17 documented as of this encounter
--- OUTSIDE RECORDS SUMMARY | 2023-10-28 10:27 | External Medical Summary | Summary of Care ---
Author Name Unknown Organization [facility] Address [address] [place] [address] Phone [phone] Care Team Providers Care Winding Inspector Name Role Phone Jessee Wisdom MD Primary Care Provider [phone] Reason for Visit * Reason Comments Acute Encounter Details Date Type Department Care Team ([facility] Contact Info) Description 09/21/2023 12:30 PM EDT Telemedicine [address] [phone] Aura Springer PA-C [facility] [place], [place] [id number] Fall, initial encounter*; Ecchymosis of right eye, initial encounter; Anticoagulated on Coumadin Allergies Active Allergy Reactions Criticality Noted Date Comments Ciprofloxacin Nausea/vomiting 01/04/2023 Clindamycin Other (Please comment) 09/19/2020 Stomach pain Latex Rash 07/23/2006 Prolonged exposure only Morphine Other (Please comment) High 02/06/2020 Sulfa Antibiotics Hives 05/05/2004 documented as of this encounter (statuses as of 09/21/2023) Medications Medication Sig Dispensed Refills Start Date [...] as of this encounter (statuses as of 09/21/2023) Active Problems Problem Noted Date Diagnosed Date [...] 12/25/2014 Depression with anxiety 12/25/2014 Constipation 12/11/2013 shelter current use of 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 1 08/19/2012 Intestinal postoperative nonabsorption 3 Gastric bypass status for obesity 02/19/2013 Dysphagia 10/27/2012 Degeneration of cervical intervertebral disc 03/2011 Insomnia 08/31/2009 Overview: ICD-10 update of inactive term 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 Patient location: HOME. I was in a hospital or clinic location. After connecting through televideo,patient was verified with two unique identifiers. Patient (or authorized legal financial services representative) was then informed that this was a Telemedicine visit and being conducted confidentially over secure lines. Methods to assure confidentiality were taken. Patient acknowledged consent and understanding of pr ivacy and security of the Telemedicine visit. The patient agreed to participate. Chief Complaint Patient presents with Acute Subjective: Ashley Morales is a 58 year old female HPI: Patient presents today for an acute visit via televideo. She is an unknown patient to me. Her PCP is Jessee Wisdom MD. She reports she fell yesterday on her porch. She is unsure how it happened, she fell face forward. She did hit her head. She denies any LOC. Her and daughter were in the house and heard her hollering and they came out to help her. Her nose was bleeding but she was able to get that to stop. Her right eye swelled quickly. Today her right eye is very bruised, she is able to open it slightly, she can see out of it, slightly blurry. Her eye is not red. She has abrasion at the top of her eye brow and at the lateral side. She had a hard time sleeping as every time she rolled she was sore. She denies headaches, nausea, vision changes. She reports she just feelsstiff and sore today. Past Medical History: Diagnosis Date Depressive disorder, not elsewhere classified Dr. Chaparro Family history of colon cancer Migraine with aura Dr. Phan Obesity, BMI not known 04/22/2000 Other anxiety states Pulmonary embolism, bilateral (HCC) 06/11/2013 Multiple bilateral segmental Medication list, PMH, Family history, social history, and problem list have been reviewed and updated in the Electronic Medical Record as noted below. 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 27 Tablet 2 Fluticasone Propionate 50 MCG/ACT Nasal Suspension [...] current facility-administered medications for this visit. Past Surgical History: Procedure Laterality Date ALLOGRAFT, STRUCTURAL, FOR SPINE SURGERY Right 09/27/2021 ALLOGRAFT FOR SPINE SURGERY STRUCTURAL performed by Messi Doll MD at [place] [facility] ARTHRODESIS, ANT INTERBODY, BELOW C-2 Right 09/27/2021 ARTHRODESIS, ANT INTERBODY, BELOW C-2 performed by Messi Doll MD at [facility] ARTHRODESIS,ANT INTERBODY,BELOW C-2,EA ADDL Right 09/27/2021 ARTHRODESIS,ANT INTERBODY,BELOW C-2,EA ADDL performed by Messi Doll MD at OR [facility] COLONOSCOPY 08/02/2008 Repeat 5 yrs COLONOSCOPY, DIAGNOSTIC (RECTUM) 01/24/2016 normal, repeat 5 yrs/[facility] COLONOSCOPY, DIAGNOSTIC (RECTUM) 02/14/2021 poor prep, repeat 1 yr / COLONOSCOPY FLEXIBLE PROXIMAL DIAGNOSTIC performed by Charline Farooq MD at ENDOSCOPY [facility] COLONOSCOPY, DIAGNOSTIC (RECTUM) 05/02/2022 normal, repeat 5 yrs / COLONOSCOPY FLEXIBLE PROXIMAL DIAGNOSTIC performed by Charline Farooq MD at ENDOSCOPY [facility] COLORECTAL CANCER SCREEN; COLON 11/03/1999 Due 2004 EGD, FLEXIBLE, DIAGNOSTIC 09/26/2012 path shows mild inflammation of esophagus consistant with acid reflux negative for Barretts and mild irritation ofstomach negative for H Pylori EGD, FLEXIBLE, DIAGNOSTIC 12/08/2013 ESOPHAGOGASTRODUODENOSCOPY (EGD), FLEXIBLE, TRANSORAL, DIAGNOSTIC performed by Sabina Guillory III, MD at [facility] EGD, FLEXIBLE, DIAGNOSTIC 02/16/2014 ESOPHAGOGASTRODUODENOSCOPY (EGD), FLEXIBLE, TRANSORAL, DIAGNOSTIC performed by Sabina Guillory III, MD at ENDOSCOPY [facility] EGD, FLEXIBLE, DIAGNOSTIC 01/28/2014 Pre-existing esophageal stent- removal unsuccessful/inpt @ [facility] EGD, FLEXIBLE, DIAGNOSTIC N/A 05/19/2014 ESOPHAGOGASTRODUODENOSCOPY (EGD), FLEXIBLE, TRANSORAL, DIAGNOSTIC performed by Sabina Guillory III, MD at [facility] EGD, FLEXIBLE, DIAGNOSTIC N/A 09/08/2014 ESOPHAGOGASTRODUODENOSCOPY (EGD), FLEXIBLE, TRANSORAL, DIAGNOSTIC performed by Sabina Guillory III, MD at [facility] EGD, FLEXIBLE, DIAGNOSTIC N/A 10/16/2014 ESOPHAGOGASTRODUODENOSCOPY (EGD), FLEXIBLE, TRANSORAL, DIAGNOSTIC performed by Sabina Guillory III, MD at [facility] EGD, FLEXIBLE, DIAGNOSTIC 11/23/2014 ESOPHAGOGASTRODUODENOSCOPY (EGD), FLEXIBLE, TRANSORAL, DIAGNOSTIC performed by Sabina Guillory MD at ENDOSCOPY [facility] EGD, FLEXIBLE, DIAGNOSTIC 01/05/2015 ESOPHAGOGASTRODUODENOSCOPY (EGD), FLEXIBLE, TRANSORAL, DIAGNOSTIC performed by Sabina Guillory MD at [facility] EGD, FLEXIBLE, DIAGNOSTIC N/A 2015 ESOPHAGOGASTRODUODENOSCOPY (EGD), FLEXIBLE, TRANSORAL, DIAGNOSTIC performed by Sabina Guillory MD at OR [facility] EGD, FLEXIBLE, DIAGNOSTIC N/A 02/16/2015 ESOPHAGOGASTRODUODENOSCOPY (EGD), FLEXIBLE, TRANSORAL, DIAGNOSTIC performed by Sabina Guillory MD at [facility] EGD, FLEXIBLE, DIAGNOSTIC N/A 06/15/2015 ESOPHAGOGASTRODUODENOSCOPY (EGD), FLEXIBLE, TRANSORAL, DIAGNOSTIC performed by Sabina Guillory MD at OR [facility] EGD, FLEXIBLE, DIAGNOSTIC N/A 10/12/2015 ESOPHAGOGASTRODUODENOSCOPY (EGD), FLEXIBLE, TRANSORAL, DIAGNOSTIC performed by Sabina Guillory MD at [facility] EGD, FLEXIBLE, DIAGNOSTIC 12/23/2018 normal/ESOPHAGOGASTRODUODENOSCOPY (EGD), FLEXIBLE, TRANSORAL, DIAGNOSTIC performed by Radha Montejo DO at ENDOSCOPY [facility] EGD, FLEXIBLE, DIAGNOSTIC 08/12/2020 normal / ESOPHAGOGASTRODUODENOSCOPY (EGD), FLEXIBLE, TRANSORAL, DIAGNOSTIC performed by Clarence Goins MD at ENDOSCOPY [facility] EGD, FLEXIBLE, INSERT WIRE, PASS DILATOR 03/07/2007 UPPER GI ENDOSCOPY WITH GUIDE WIRE DILATION performed by SABINA GUILLORY III at [facility] EGD, FLEXIBLE, REMOVE FOREIGN BODY 11/02/2013 ESOPHAGOGASTRODUODENOSCOPY (EGD), FLEXIBLE, TRANSORAL, WITH REMOVAL FOREIGN BODY performed by Sabina Guillory III, MD at [facility] EGD, FLEXIBLE, REMOVE FOREIGN BODY 02/04/2014 ESOPHAGOGASTRODUODENOSCOPY (EGD), FLEXIBLE, TRANSORAL, WITH REMOVAL FOREIGN BODY performed by Sabina Guillory III, MD at OR [facility] EGD, FLEXIBLE, REMOVE FOREIGN BODY 02/11/2014 ESOPHAGOGASTRODUODENOSCOPY (EGD), FLEXIBLE, TRANSORAL, WITH REMOVAL FOREIGN BODY performed by Sabina Guillory III, MD at [facility] EGD, FLEXIBLE, REMOVE FOREIGN BODY N/A 06/15/2015 ESOPHAGOGASTRODUODENOSCOPY (EGD), FLEXIBLE, TRANSORAL, WITH REMOVAL FOREIGN BODY performed by Sabina Guillory MD at [facility] EGD, FLEXIBLE, TRANSENDOSCOPIC DILATION <30MM N/A 2015 ESOPHAGOGASTRODUODENOSCOPY (EGD), FLEXIBLE, TRANSORAL, BALLOON DILATION LESS THAN 30MM performed bySabina Guillory MD at [facility] EGD, FLEXIBLE, TRANSENDOSCOPIC DILATION <30MM N/A 02/16/2015 ESOPHAGOGASTRODUODENOSCOPY (EGD), FLEXIBLE, TRANSORAL, BALLOON DILATION LESS THAN 30MM performed bySabina Guillory MD at [facility] EGD, FLEXIBLE, W/DILATE STRICTURES 02/11/2014 ESOPHAGOGASTRODUODENOSCOPY (EGD), FLEXIBLE, TRANSORAL, DILATION GASTRIC OUTLET performed by Yesenia Guillory III, MD at [facility] EGD, FLEXIBLE,ENDO STENT PLACEMENT N/A 10/19/2014 ESOPHAGOGASTRODUODENOSCOPY (EGD), FLEXIBLE, TRANSORAL: STENT PLACEMENT performed by Sabina Guillory III, MD at [facility] EGD, FLEXIBLE,ENDO STENT PLACEMENT N/A 2015 ESOPHAGOGASTRODUODENOSCOPY (EGD), FLEXIBLE, TRANSORAL: STENT PLACEMENT performed by Sabina Guillory MD at [facility] EGD, FLEXIBLE,ENDO STENT PLACEMENT N/A 02/16/2015 ESOPHAGOGASTRODUODENOSCOPY (EGD), FLEXIBLE, TRANSORAL: STENT PLACEMENT performed by Sabina Guillory MD at [facility] EGD, FLEXIBLE,W/ENDOSCOPIC US 02/12/2020 [facility] ESOPHAGOSCOPY, FLEXIBLE, TRANSENDOSCOPIC DILATION <30MM 07/09/2013 ESOPHAGOSCOPY BALLOON DILATION LESS THAN 30MM performed by Sabina Guillory III, MD at [facility] EXPLORATION OF ABDOMEN 05/14/2013 EXPLORATORY LAPAROTOMY performed by Sabina Guillory III, MD at OR [facility] EXPLORATION OF ABDOMEN N/A 10/16/2014 EXPLORATORY LAPAROTOMY performed by Sabina Guillory III, MD at OR [facility] EXPLORATION OF ABDOMEN N/A 10/19/2014 EXPLORATORY LAPAROTOMY performed by Sabina Guillory III, MD at [facility] GASTRIC REVISION FOR OBESITY 08/08/2006 Performed by SABINA GUILLORY III at [facility] Log [id number] INJECT DX/THER SUBSTANCE INTERLAMINAR CERVICAL/THORACIC W IMAGE GUIDE N/A 01/23/2021 INJECTION SPINE LUMBAR CERVICAL OR THORACIC performed by Adolfo Brooks DO at OR [facility] IOF CT GUIDED NEEDLE BIOPSY 05/18/2013 CT GUIDED NEEDLE ASPIRATION BIOPSY performed by Kenneth Greenwood PA-C at RADIOLOGY [facility] IR DRAINAGE ABSCESS/SPECIMEN W CATHETER PLACEMENT 07/14/2013 RADIOLOGICAL GUIDANCE FOR ABSCESS DRAINAGE performed by Kenneth Greenwood PA-C at [facility] IR DRAINAGE ABSCESS/SPECIMEN W CATHETER PLACEMENT 08/14/2013 RADIOLOGICAL GUIDANCE FOR ABSCESS DRAINAGE performed by Kenneth Greenwood PA-C at [facility] IR US GUIDED THORACENTESIS 05/20/2013 THORACENTESIS FOR ASPIRATION W/ IMAGING performed by Amy Curry MD at [facility] REMOVAL OF SPLEEN, TOTAL, EN BLOC N/A 10/16/2014 SPLENECTOMY TOTAL WITH OTHER PROCEDURE performed by Sabina Guillory III, MD at [facility] REMOVE GALLBLADDER REMOVE STOMACH, PARTIAL 05/07/2013 GASTRECTOMY PARTIAL WITH GASTROJEJUNOSTOMY performed by Sabina Guillory III, MD at [facility] REVISION OF ANKLE JOINT right SPINE FIX DEV, ANT, 4-7 SEG, INSERT Right 09/27/2021 ANTERIOR INSTRUMENTATION 4 TO 7 VERTEBRAL SEGMENTS performed by Messi Doll MD at [facility] TOTAL ABD HYSTERECTOMY W/WO REMOVAL OF TUBE(S) 10/02/2010 ABISAI/BSO WEDGE BIOPSY OF LIVER 08/08/2006 Performed by SABINA GUILLORY III at [facility] Log [id number] WEDGE BIOPSY OF LIVER 05/07/2013 BIOPSY OF LIVER WEDGE performed by Sabina Guillory III, MD at [facility] Review of patient's allergies indicates: Allergen Reactions [...] (Not Specified) MAUNT (Not Specified) Social History Tobacco Use Smoking status: Former Current packs/day: 0.00 Average packs/day: 0.5 packs/day for 3.0 years (1.5 ttl pk-yrs) Types: Cigarettes Start date: 02/12/2017 Quit date: 02/13/2020 Years since quittin.6 Passive exposure: Past Smokeless tobacco: Never Substance Use Topics Alcohol use: Yes Comment: very rare Vaping/E-Cigarette Use Vaping/E-Cigarette Use Never User Vaping/E-Cigarette Substances Vaping/E-Cigarette Devices Review of Systems Eyes: Positive for redness. Gastrointestinal: Negative for nausea and vomiting. Musculoskeletal: Positive for arthralgias and myalgias. Neurological: Negative for dizziness, syncope, speech difficulty and headaches. Objective: LMP 09/03/2010 Wt Readings from Last 4 Encounters: 09/19/23 112.9 kg (248 lb 14.4 oz) 07/23/23 113.6 kg (250 lb 6.4 oz) 05/13/23 112.1 kg (247 lb 1.6 oz) 03/01/23 106.3 kg (234 lb 6.4 oz) Physical Exam Constitutional: Appearance: Normal appearance. Eyes: Extraocular Movements: Right eye: Normal extraocular motion. Conjunctiva/sclera: Right eye: Right conjunctiva is not injected. Comments: Right eye with ecchymosis and slight edema at eye lid Pulmonary: Effort: No respiratory distress. Neurological: General: No focal deficit present. Mental Status: She is alert and oriented to person, place, and time. ASSESSMENT/PLAN: Fall, initial encounter (Primary) Supportive care-tylenol for pain, cold compresses Ecchymosis of right eye, initial encounter Supportive care, cool compresses, ER if any difficult moving eye Anticoagulated on Coumadin Discussed with patient of risk on coumadin. She did hit her face however age <65, no LOC. Warnedof signs of brain bleed, encouraged ER if any headache, vision changes, weakness, speech changes Aura Springer PA-C 09/21/23 documented in this encounter Plan of Treatment Upcoming Encounters Date Type Department Care Team (Late st Contact Info) Description 09/23/2023 6:45 PM EDT Anticoagulation Pharmacy Call Center [phone] [place] [address] [facility] [address] [facility] [place] [address] 09/26/2023 10:30 AM EDT Imaging Radiology [facility] 1st [facility] [address] [facility] [address] 09/30/2023 1:00 PM EDT Nurse Only Ancillary Department, [place] [address] [place] [address] [place], Nurse Annual Wellness [address] [place] [address] 10/09/2023 9:30 AM EDT Office Visit Gastroenterology, [facility] [address] [facility] [address] Annabelle Ramirez CRNP [address] [place] [address] 10/15/2023 11:40 AM EDT Office Visit Family Practice, [place] [address] [place] [id number] Jessee Wisdom MD [address] [place] [address] 09/14/2024 10:40 AM EDT Telemedicine Neurology, [place] [address] [place] [address] Michelle Roth MD [address] [place] [address] Scheduled Procedures Name Priority Associated Diagnoses Date/Ti [...] this encounter Medical Devices Implanted Type Area Aircraft Maintenance Supervisor Device Identifier Shelf Expiration Date Model / Serial / Lot Alloderm 2x4cm [id number] (8 Units) - [id number] - [id number] Implanted:Qty: 8 on 2015 by Sabina Guillory MD at OR [facility] Tissue - Human N/A: Esophagus [employer] 10/21/2016 [id number] / [id number] / [id number] Stent Esoph Endomaxx [id number] - [id number] Implanted:Qty: 1 on 07/09/2013 at OR [facility] N/A: Esophagus [email or web address] 07/09/2015 [id number]-[id number] / / [id number] Stent Esoph Endomaxx [id number] - [id number] Implanted:Qty: 1 on 12/08/2013 at OR [facility] [employer] 06/23/2016 [id number]-1915 / / [id number] Stent Esoph Endomaxx [id number] - [id number] Implanted:Qty: 1 on 10/19/2014 by Sabina Guillory MD at OR [facility] N/A: Esophagus [employer] 05/23/2017 [id number]-2315 / / [id number] Stent Wallflex Esophogeal 28x1 - [id number] - [id number] Implanted:Qty: 1 on 2015 by Sabina Guillory MD at OR [facility] N/A: Esophagus [employer] : ENDOSCOPY 06/23/2016 [id number] / [id number] / [id number] Stent Wallflex 27 Mm X 22 Mm [id number] Implanted:Qty: 1 on 2015 by Sabina Guillory MD at OR [facility] N/A: Esophagus [employer] : ENDOSCOPY [id number] / / Stent Eso Gw [id number] - [id number] Implanted:Qty: 1 on 02/16/2015 by Sabina Guillory MD at OR [facility] N/A: Esophagus [employer] 04/23/2017 [id number] / / [id number] Screw Ti Locking 1.8mm 497.78 - [id number] Implanted:Qty: 8 on 09/27/2021 by Messi Doll MD at OR [facility] Right: Spine Cervical SYNTHES 497.78 / / Screw Ti Expans 4.35mm 487.054 - [id number] Implanted:Qty: 8 on 09/27/2021 by Messi Doll MD at OR [facility] Right: Spine Cervical SYNTHES 487.054 / / Plate Cslp 487.355 - [id number] Implanted:Qty: 1 on 09/27/2021 by Messi Doll MD at OR [facility] Right: Spine Cervical SYNTHES 487.355 / / Cervical Vertigraft 5x7 - [id number] - [id number] Implanted:Qty: 1 on 09/27/2021 by Messi Doll MD at OR [facility] Right: Spine Cervical [employer] 01/23/2026 [id number] / [id number] / [id number] Cervical Vertigraft 6x8 - [id number] - [id number] Implanted:Qty: 1 on 09/27/2021 by Messi Doll MD at OR [facility] Right: Spine Cervical [employer] 11/10/2025 [id number] / [id number] / [id number] Cervical Vertigraft 5x7 - [id number] - [id number] Implanted:Qty: 1 on 09/27/2021 by Messi Doll MD at OR [facility] Right: Spine Cervical [employer] 04/09/2026 [id number] / [id number] / [id number] documented as of this encounter Visit Diagnoses Diagnosis Fall, initial encounter- Primary Ecchymosis of right eye, initial encounter Anticoagulated on Coumadin Encounter for therapeutic drug monitoring documented in [...] the patient have Health Care Power of Motorboat Operator? No Full Code 01/12/2015 10:35 PM 01/21/2015 4:44 PM Question Answer Comments Discussion of Advance Directives occurred with: Not Discussed Full Code 12/22/2014 4:26 AM 12/25/2014 5:53 PM This or nu reflects the patients wishes and were consensually agreed upon. Question Answer Comments Discussion of Advance Directives occurred with: Patient Care Teams Winding Inspector Relationship Specialty Start Date End Date Jessee Wisdom MD [address] [place] [address] PCP - General Family Medicine 06/20/17 documented as of this encounter
--- OUTSIDE RECORDS SUMMARY | 2023-10-28 10:27 | External Medical Summary | Summary of Care ---
Author Name Unknown Organization [facility] Address [address] [place] [address] Phone [phone] Care Team Providers Care Business Banking Sales Assistant Name Role Phone Jessee Wisdom MD Primary Care Provider [phone] Reason for Referral * Evaluate & Treat - Unlimited Visits (Within 30 days (routine)) - Authorized Specialty Diagnoses / Procedures Referred By Contac t Referred To Contact Gastroenterology Diagnoses Other chronic pancreatitis (HCC) Jessee Wisdom MD [address] [place] [address] Referral ID Status Reason Start Date Expiration Date Visits Requested Visits Authorized [id number] Authorized Specialty Services Required 09/10/2023 999 999 Question Answer Referral Priority Within 30 days (routine) Where should this appointment be scheduled? [facility] For what condition is the patient being referred? All Gastro Conditions Reason for Visit * Reason Onset Date Comments Hospital Follow-Up 09/10/2023 Encounter Details Date Type Department Care Team (Late st Contact Info) Description 09/10/2023 2:00 PM EDT Telemedicine [facility] [address] [place] [facility] [place] [address] Jessee Wisdom MD [address] [place] [address] Other chronic pancreatitis (HCC)*; Migraine variant, intractable; Recurrent pulmonary emboli (HCC); Anxiety state; Lyme disease; Hospital discharge follow-up Allergies Active Allergy Reactions Criticality Noted Date Comments Ciprofloxacin Nausea/vomiting 01/04/2023 Clindamycin Other (Please comment) 09/19/2020 Stomach pain Latex Rash 07/23/2006 Prolonged exposure only Morphine Other (Please comment) High 02/06/2020 Sulfa Antibiotics Hives 05/05/2004 documented as of this encounter (statuses as of 09/10/2023) Medications Medication Sig Dispensed Refills Start Date [...] as of this encounter (statuses as of 09/10/2023) Active Problems Problem Noted Date Diagnosed Date [...] 12/25/2014 Depression with anxiety 12/25/2014 Constipation 12/11/2013 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 1 08/19/2012 Intestinal postoperative nonabsorption 3 Gastric bypass status for obesity 02/19/2013 Dysphagia 10/27/2012 Degeneration of cervical intervertebral disc 03/2011 Insomnia 08/31/2009 Overview: ICD-10 update of inactive term 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 I was in a hospital or clinic location. After connecting through televideo,patient was verified with two unique identifiers. Patient (or authorized legal promotions representative) was then informed that this was a Telemedicine visit and being conducted confidentially over secure lines. Methods to assure confidentiality were taken. Patient acknowledged consent and understanding of pr ivacy and security of the Telemedicine visit. The patient agreed to participate. Patient presents for hospital follow-up. She was [facility] to [facility] - 09[facility]07/23. [facility] to have acute on chronic pancreatitis. Was seen by Gastroenterology. Managed with pain relief, decreased oralintake, IV fluids. Diet was able to be advanced as tolerated. She was found to have Lyme disease. Other Lyme studies are pending. She has on a course of doxycycline. She was given some oxycodone for pain relief for her abdominal pain. She has needed about 1 per day. It was suggested that she may need to see pain management if she has chronic pain related to chronic pancreatitis. Patient is hopingthat her pain will continue to improve and that she will be able to wean the use of oxycodone. She is to be set up for Gastroenterology appointment and will likely need an ERCP. She is agreeable withthat referral. She has been tolerating liquids very well since being home. No vomiting. She did have some increased abdominal pain after eating macaroni and cheese but has done well with small amounts of other foods. No fever. No new issues or complaints. During video visit, she is awake and alert. She answers questions appropriately. Mental status is normal. Will set up gastroenterology referral. Have elected to hold on pain management referral for now. She is able to manage her pain with 1 oxycodone per day on average. Hopefully she will be able to weanher use over time. Will be back in touch with patient in regards to final results of tick-borne diseases. She will call for new or worsening symptoms. I will refill the oxycodone if needed. Jessee Wisdom MD documented in this encounter Plan of Treatment Upcoming Encounters Date Type Department Care Team (Late st Contact Info) Description 09/23/2023 6:45 PM EDT Anticoagulation Pharmacy Call Center [phone] [facility] [place] [address] [facility] [address] [facility] [place] [address] 09/30/2023 1:00 PM EDT Nurse Only Ancillary Department, [place] [address] [place] [address] [place] [facility] [address] [place] [address] 10/09/2023 9:30 AM EDT Office Visit Gastroenterology, [facility] [address] [place] [address] Annabelle Ramirez CRNP [address] [facility] [address] 10/15/2023 11:40 AM EDT Office Visit Family [facility], [place] [address] [place] [phone] Jessee Wisdom MD [address] [place] [address] 09/14/2024 10:40 AM EDT [facility] [address] [place] [address] Michelle Roth MD [address], [place] [id number] Scheduled Procedures Name Priority Associated Diagnoses Date/Ti me COLONOSCOPY FLEXIBLE PROXIMA L DIAGNOSTIC Recall Family history of colonic polyps Scheduled Referrals Name Type Priority Associated Diagnoses Orde r Schedule ADULT GASTROENTEROLOGY REFERRAL OP Referral Within 30 days (routine) Other chronic pancreatitis (HCC) Ordered: 09/10/2023 Health Maintenance Due Date Last Done Comments [...] this encounter Medical Devices Implanted Type Area Workshop Manager Device Identifier Shelf Expiration Date Model / Serial / Lot Alloderm 2x4cm [id number] (8 Units) - [id number] - [id number] Implanted:Qty: 8 on 2015 by David Rosado MD [place] [facility] [place] Tissue - Human N/A: Esophagus [employer] 10/21/2016 [id number] / [id number] / [id number] Stent Esoph Endomaxx 22v539 - [id number] Implanted:Qty: 1 on 07/09/2013 at [place] [facility] [place] N/A: Esophagus [employer] 07/09/2015 [id number] / / [id number] Stent Esoph Endomaxx [id number] - [id number] Implanted:Qty: 1 on 12/08/2013 at [place] [facility] [place] [employer] 06/23/2016 [id number]-1915 / / [id number] Stent Esoph Endomaxx 02b345 - [id number] Implanted:Qty: 1 on 10/19/2014 by David Rosado MD [place] [facility] [place] N/A: Esophagus [employer] 05/23/2017 [id number]-[id number] / / [id number] Stent Wallflex Esophogeal 28x1 - [id number] - [id number] Implanted:Qty: 1 on 2015 by David Rosado MD at [place] [facility] [place] N/A: Esophagus [employer] : ENDOSCOPY 06/23/2016 [id number] / [id number] / [id number] Stent Wallflex 27 Mm X 22 Mm [id number] Implanted:Qty: 1 on 2015 by David Rosado MD at [place] [facility] [place] N/A: Esophagus [employer] : ENDOSCOPY [id number] / / Stent Eso Gw [id number] - [id number] Implanted:Qty: 1 on 02/16/2015 by David Rosado MD at [place] [facility] [place] N/A: Esophagus [employer] 04/23/2017 [id number] / / [id number] Screw Ti Locking 1.8mm 497.78 - [id number] Implanted:Qty: 8 on 09/27/2021 by Messi Doll MD at [place] [facility] [place] Right: Spine Cervical SYNTHES 497.78 / / Screw Ti Expans 4.35mm 487.054 - [id number] Implanted:Qty: 8 on 09/27/2021 by Messi Doll MD at [place] [facility] [place] Right: Spine Cervical SYNTHES 487.054 / / Plate Cslp 487.355 - [id number] Implanted:Qty: 1 on 09/27/2021 by Messi Doll MD at [place] [facility] [place] Right: Spine Cervical SYNTHES 487.355 / / Cervical Vertigraft 5x7 - [id number] - [id number] Implanted:Qty: 1 on 09/27/2021 by Messi Doll MD at [place] [facility] [place] Right: Spine Cervical [employer] 01/23/2026 [id number] / [id number] / [id number] Cervical Vertigraft 6x8 - [id number] - [id number] Implanted:Qty: 1 on 09/27/2021 by Messi Doll MD at [place] [facility] [place] Right: Spine Cervical [employer] 11/10/2025 [id number] / [id number] / [id number] Cervical Vertigraft 5x7 - [id number] - [id number] Implanted:Qty: 1 on 09/27/2021 by Messi Doll MD at [facility] Right: Spine Cervical [employer] 04/09/2026 [id number] / [id number] / [id number] documented as of this encounter Visit Diagnoses Diagnosis Other chronic pancreatitis (HCC)- Primary Migraine variant, intractable Variants of migraine, not elsewhere classified, with intractable migraine, so stated, without mention of status migrainosus Recurrent pulmonary emboli (HCC) Other pulmonary embolism and infarction Anxiety state Anxiety state, unspecified Lyme disease Hospital discharge follow-up Other follow-up examination documented in this encounter Advance Directives Latest [...] the patient have Health Care Power of Paperboard Machine Operator? No Full Code 01/12/2015 10:35 PM 01/21/2015 4:44 PM Question Answer Comments Discussion of Advance Directives occurred with: Not Discussed Full Code 12/22/2014 4:26 AM 12/25/2014 5:53 PM This or nu reflects the patients wishes and were consensually agreed upon. Question Answer Comments Discussion of Advance Directives occurred with: Patient Care Teams Business Banking Sales Assistant Relationship Specialty Start Date End Date Jessee Wisdom MD [address] [place] [address] PCP - General Family Medicine 06/20/17 documented as of this encounter
--- OUTSIDE RECORDS SUMMARY | 2023-10-28 10:27 | External Medical Summary | Summary of Care ---
Author Name Unknown Organization [facility] Address [address] [place] [address] Phone [phone] Care Team Providers Care Personnel Recruiter Name Role Phone Jessee Wisdom MD Primary Care Provider [phone] Reason for Visit * Reason Comments Forms Request Pt here today to hav e her forms for disability filled out by provider Encounter Details Date Type Department Care Team (Late st Contact Info) Description 09/19/2023 1:00 PM EDT [facility] [address] [place] [address] Shelly Castaneda MD [address] [place] [address] Migraine variant, intractable*; Encounter for screening mammogram for breast cancer; Other chronic pancreatitis (HCC); Recurrent major depressive disorder, in partial remission (HCC); S/P cervical spinal fusion; Gastric bypass status for obesity; Depression with anxiety; Constipation, unspecified constipation type Allergies Active Allergy Reactions Criticality Noted Date Comments Ciprofloxacin Nausea/vomiting 01/04/2023 Clindamycin Other (Please comment) 09/19/2020 Stomach pain Latex Rash 07/23/2006 Prolonged exposure only Morphine Other (Please comment) High 02/06/2020 Sulfa Antibiotics Hives 05/05/2004 documented as of this encounter (statuses as of 09/20/2023) Medications Medication Sig Dispensed Refills Start Date [...] at bedtime 30 Tablet 5 09/05/2023 Active Pantoprazole Sodium 40 MG Oral Tablet Delayed Release (Protonix) Take 1 Tablet by mouth in the morning. 30 minutes before the first meal of the day. Do not crush, split or chew the tablet. 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 SHIN RESEARCH OTHER*[id number] 02/03/2006 Anxiety state 08/07/2005 AGORAPHOBIA 08/07/2005 Class 2 obesity without seri ous comorbidity with body mass index (BMI) of 39.0 to 39.9 in adult 04/22/2000 Overview: Per Obesity Taxonomy documented as of this encounter (statuses as of 09/20/2023) Resolved Problems Problem Noted Date Diagnosed Date [...] as of this encounter (statuses as of 09/20/2023) Immunizations Name Administration Dates Next Due 08/07/2016, [...] Sign Reading Time Taken Comments Blood Pressure 110/68 09/19/2023 1:02 PM EDT Pulse 86 09/19/2023 1:02 PM EDT Temperature 36.4 C (97.5 F) 09/19/2023 1:02 PM ED T Respiratory Rate 18 09/19/2023 1:02 PM EDT Oxygen Saturation 95% 09/19/2023 1:02 PM EDT Inhaled Oxygen Concentration - - Weight 112.9 kg (248 lb 14.4 oz) 09/19/2023 1:02 PM EDT Height - - Body Mass Index 40.17 03/01/2023 5:57 PM EDT documented in this [...] Progress Notes * Shelly Castaneda MD - 09/20/2023 11:04 AM EDT Subjective Ashley Morales is a 58 year old female. Chief Complaint Patient presents with Forms Request Pt here today to have her forms for disability filled out by provider HPI: Here to discuss about disability form Has been under disability due to chronic migraine, cervical fusion , neck pain over 30 yrs Missing last page of previous form Redoing today No change in her medical conditions Taking all her meds for migraine, cervical DDD, OA, depression anxiety Also recently was at hospital due to recurrent pancreatitis Chronic IBS, severe constipation, seems better with linzess PMH: Patient Active Problem List Diagnosis Code Class 2 obesity without serious comorbidity with body mass index (BMI) of 39.0 to 39.9 in adult E66.9, Z68.39 Anxiety state F41.1 AGORAPHOBIA F40.02 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 Insomnia G47.00 SHIN RESEARCH OTHER*[id number] Degeneration of cervical intervertebral disc M50.30 Dysphagia R13.10 Gastric bypass status for obesity Z98.84 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 Z79.01 Constipation [...] STRUCTURAL performed by Messi Doll MD at [facility] ARTHRODESIS, ANT INTERBODY, BELOW C-2 Right 09/27/2021 ARTHRODESIS, ANT INTERBODY, BELOW C-2 performed by Messi Doll MD at [facility] ARTHRODESIS,ANT INTERBODY,BELOW C-2,EA ADDL Right 09/27/2021 ARTHRODESIS,ANT INTERBODY,BELOW C-2,EA ADDL performed by Messi Doll MD at [facility] COLONOSCOPY 08/02/2008 Repeat 5 yrs COLONOSCOPY, DIAGNOSTIC (RECTUM) 01/24/2016 normal, repeat 5 yrs/[facility] COLONOSCOPY, DIAGNOSTIC (RECTUM) 02/14/2021 poor prep, repeat 1 yr / COLONOSCOPY FLEXIBLE PROXIMAL DIAGNOSTIC performed by Charline Farooq MD at ENDOSCOPY [facility] COLONOSCOPY, DIAGNOSTIC (RECTUM) 05/02/2022 normal, repeat 5 yrs / COLONOSCOPY FLEXIBLE PROXIMAL DIAGNOSTIC performed by Charline Farooq MD at ENDOSCOPY [facility] COLORECTAL CANCER SCREEN; COLON 11/03/1999 Due 2004 EGD, FLEXIBLE, DIAGNOSTIC 09/26/2012 path shows mild inflammation of esophagus consistant with acid reflux negative for Barretts and mild irritation ofstomach negative for H Pylori EGD, FLEXIBLE, DIAGNOSTIC 12/08/2013 ESOPHAGOGASTRODUODENOSCOPY (EGD), FLEXIBLE, TRANSORAL, DIAGNOSTIC performed by Sabina Guillory III, MD at [facility] EGD, FLEXIBLE, DIAGNOSTIC 02/16/2014 ESOPHAGOGASTRODUODENOSCOPY (EGD), FLEXIBLE, TRANSORAL, DIAGNOSTIC performed by Sabina Guillory III, MD at ENDOSCOPY [facility] EGD, FLEXIBLE, DIAGNOSTIC 01/28/2014 Pre-existing esophageal stent- removal unsuccessful/inpt @ [facility] EGD, FLEXIBLE, DIAGNOSTIC N/A 05/19/2014 ESOPHAGOGASTRODUODENOSCOPY (EGD), FLEXIBLE, TRANSORAL, DIAGNOSTIC performed by Sabina Guillory III, MD at [facility] EGD, FLEXIBLE, DIAGNOSTIC N/A 09/08/2014 ESOPHAGOGASTRODUODENOSCOPY (EGD), FLEXIBLE, TRANSORAL, DIAGNOSTIC performed by Sabina Guillory III, MD at [facility]OS[facility] EGD, FLEXIBLE, DIAGNOSTIC N/A 10/16/2014 ESOPHAGOGASTRODUODENOSCOPY (EGD), FLEXIBLE, TRANSORAL, DIAGNOSTIC performed by Sabina Guillory III, MD at [facility] EGD, FLEXIBLE, DIAGNOSTIC 11/23/2014 ESOPHAGOGASTRODUODENOSCOPY (EGD), FLEXIBLE, TRANSORAL, DIAGNOSTIC performed by Sabina Guillory MD at [facility]COPY [facility] EGD, FLEXIBLE, DIAGNOSTIC 01/05/2015 ESOPHAGOGASTRODUODENOSCOPY (EGD), FLEXIBLE, TRANSORAL, DIAGNOSTIC performed by Sabina Guillory MD at [facility] EGD, FLEXIBLE, DIAGNOSTIC N/A 2015 ESOPHAGOGASTRODUODENOSCOPY (EGD), FLEXIBLE, TRANSORAL, DIAGNOSTIC performed by Sabina Guillory MD at [facility] EGD, FLEXIBLE, DIAGNOSTIC N/A 02/16/2015 ESOPHAGOGASTRODUODENOSCOPY (EGD), FLEXIBLE, TRANSORAL, DIAGNOSTIC performed by Sabina Guillory MD at [facility] EGD, FLEXIBLE, DIAGNOSTIC N/A 06/15/2015 ESOPHAGOGASTRODUODENOSCOPY (EGD), FLEXIBLE, TRANSORAL, DIAGNOSTIC performed by Sabina Guillory MD at [facility] EGD, FLEXIBLE, DIAGNOSTIC N/A 10/12/2015 ESOPHAGOGASTRODUODENOSCOPY (EGD), FLEXIBLE, TRANSORAL, DIAGNOSTIC performed by Sabina Guillory MD at [facility] EGD, FLEXIBLE, DIAGNOSTIC 12/23/2018 normal/ESOPHAGOGASTRODUODENOSCOPY (EGD), FLEXIBLE, TRANSORAL, DIAGNOSTIC performed by Radha Montejo DO at ENDOSCOPY [facility] EGD, FLEXIBLE, DIAGNOSTIC 08/12/2020 normal / ESOPHAGOGASTRODUODENOSCOPY (EGD), FLEXIBLE, TRANSORAL, DIAGNOSTIC performed by Clarence Goins MD at ENDOSCOPY [facility] EGD, FLEXIBLE, INSERT WIRE, PASS DILATOR 03/07/2007 UPPER GI ENDOSCOPY WITH GUIDE WIRE DILATION performed by SABINA GUILLORY III at [facility] EGD, FLEXIBLE, REMOVE FOREIGN BODY 11/02/2013 ESOPHAGOGASTRODUODENOSCOPY (EGD), FLEXIBLE, TRANSORAL, WITH REMOVAL FOREIGN BODY performed by Sabina Guillory III, MD at [facility] EGD, FLEXIBLE, REMOVE FOREIGN BODY 02/04/2014 ESOPHAGOGASTRODUODENOSCOPY (EGD), FLEXIBLE, TRANSORAL, WITH REMOVAL FOREIGN BODY performed by Sabina Guillory III, MD at [facility] EGD, FLEXIBLE, REMOVE FOREIGN BODY 02/11/2014 ESOPHAGOGASTRODUODENOSCOPY (EGD), FLEXIBLE, TRANSORAL, WITH REMOVAL FOREIGN BODY performed by Sabina Guillory III, MD at [facility] EGD, FLEXIBLE, REMOVE FOREIGN BODY N/A 06/15/2015 ESOPHAGOGASTRODUODENOSCOPY (EGD), FLEXIBLE, TRANSORAL, WITH REMOVAL FOREIGN BODY performed by Sabina Guillory MD at [facility] EGD, FLEXIBLE, TRANSENDOSCOPIC DILATION <30MM N/A 2015 ESOPHAGOGASTRODUODENOSCOPY (EGD), FLEXIBLE, TRANSORAL, BALLOON DILATION LESS THAN 30MM performed bySaibna Guillory MD at [facility] EGD, FLEXIBLE, TRANSENDOSCOPIC DILATION <30MM N/A 02/16/2015 ESOPHAGOGASTRODUODENOSCOPY (EGD), FLEXIBLE, TRANSORAL, BALLOON DILATION LESS THAN 30MM performed bySabina Guillory MD at [facility] EGD, FLEXIBLE, W/DILATE STRICTURES 02/11/2014 ESOPHAGOGASTRODUODENOSCOPY (EGD), FLEXIBLE, TRANSORAL, DILATION GASTRIC OUTLET performed by Yesenia Guillory III, MD at [facility] EGD, FLEXIBLE,ENDO STENT PLACEMENT N/A 10/19/2014 ESOPHAGOGASTRODUODENOSCOPY (EGD), FLEXIBLE, TRANSORAL: STENT PLACEMENT performed by Sabina Guillory III, MD at [facility] EGD, FLEXIBLE,ENDO STENT PLACEMENT N/A 2015 ESOPHAGOGASTRODUODENOSCOPY (EGD), FLEXIBLE, TRANSORAL: STENT PLACEMENT performed by Sabina Guillory MD at [facility] EGD, FLEXIBLE,ENDO STENT PLACEMENT N/A 02/16/2015 ESOPHAGOGASTRODUODENOSCOPY (EGD), FLEXIBLE, TRANSORAL: STENT PLACEMENT performed by Sabina Guillory MD at [facility] EGD, FLEXIBLE,W/ENDOSCOPIC US 02/12/2020 [place] / [facility] ESOPHAGOSCOPY, FLEXIBLE, TRANSENDOSCOPIC DILATION <30MM 07/09/2013 ESOPHAGOSCOPY BALLOON DILATION LESS THAN 30MM performed by Sabina Guillory III, MD at [facility] EXPLORATION OF ABDOMEN 05/14/2013 EXPLORATORY LAPAROTOMY performed by Sabina Guillory III, MD at [facility] EXPLORATION OF ABDOMEN N/A 10/16/2014 EXPLORATORY LAPAROTOMY performed by Sabina Guillory III, MD at [facility] EXPLORATION OF ABDOMEN N/A 10/19/2014 EXPLORATORY LAPAROTOMY performed by Sabina Guillory III, MD at [facility] GASTRIC REVISION FOR OBESITY 08/08/2006 Performed by SABINA GUILLORY III at OR [facility] Log [id number] INJECT DX/THER SUBSTANCE INTERLAMINAR CERVICAL/THORACIC W IMAGE GUIDE N/A 01/23/2021 INJECTION SPINE LUMBAR CERVICAL OR THORACIC performed by Adolfo Brooks DO at OR [facility] IOF CT GUIDED NEEDLE BIOPSY 05/18/2013 CT GUIDED NEEDLE ASPIRATION BIOPSY performed by Kenneth Greenwood PA-C at RADIOLOGY [facility] IR DRAINAGE ABSCESS/SPECIMEN W CATHETER PLACEMENT 07/14/2013 RADIOLOGICAL GUIDANCE FOR ABSCESS DRAINAGE performed by Kenneth Greenwood PA-C at RADIOLOGY [facility] IR DRAINAGE ABSCESS/SPECIMEN W CATHETER PLACEMENT 08/14/2013 RADIOLOGICAL GUIDANCE FOR ABSCESS DRAINAGE performed by Kenneth Greenwood PA-C at RADIOLOGY [facility] IR US GUIDED THORACENTESIS 05/20/2013 THORACENTESIS FOR ASPIRATION W/ IMAGING performed by Amy Curry MD at RADIOLOGY [facility] REMOVAL OF SPLEEN, TOTAL, EN BLOC N/A 10/16/2014 SPLENECTOMY TOTAL WITH OTHER PROCEDURE performed by Sabina Guillory III, MD at [facility] REMOVE GALLBLADDER REMOVE STOMACH, PARTIAL 05/07/2013 GASTRECTOMY PARTIAL WITH GASTROJEJUNOSTOMY performed by Sabina Guillory III, MD at [facility] REVISION OF ANKLE JOINT right SPINE FIX DEV, ANT, 4-7 SEG, INSERT Right 09/27/2021 ANTERIOR INSTRUMENTATION 4 TO 7 VERTEBRAL SEGMENTS performed by Messi Doll MD at [facility] TOTAL ABD HYSTERECTOMY W/WO REMOVAL OF TUBE(S) 10/02/2010 ABISAI/BSO WEDGE BIOPSY OF LIVER 08/08/2006 Performed by SABINA GUILLORY III at [facility] Log [id number] WEDGE BIOPSY OF LIVER 05/07/2013 BIOPSY OF LIVER WEDGE performed by Sabina Guillory III, MD at [facility] Review of patient's allergies indicates: Allergen Reactions [...] chills, diaphoresis, fever and unexpected weight change. Eyes: Negative for visual disturbance. Respiratory: Negative for cough, chest tightness, shortness of breath and wheezing. Cardiovascular: Negative for chest pain, palpitations and leg swelling. Gastrointestinal: Positive for constipation and nausea. Negative for abdominal distention, abdominal pain, diarrhea and vomiting. Endocrine: Negative. Musculoskeletal: Positive for arthralgias, neck pain and neck stiffness. Neurological: Positive for headaches. Negative for dizziness, tremors, weakness and light-headedness. Psychiatric/Behavioral: Positive for dysphoric mood and sleep disturbance. Negative for agitation and behavioral problems. The patient is nervous/anxious. Objective BP 110/68 | Pulse 86 | Temp 36.4 C (97.5 F) (Infrared ) | Resp 18 | Wt 112.9 kg (248 lb 14.4 oz) | LMP 09/03/2010 | SpO2 95% | BMI 40.17 kg/m | BSA 2.29 m Physical Exam Constitutional: General: She is not in acute distress. Appearance: Normal appearance. She is obese. She is not ill-appearing, toxic- appearing or diaphoretic. HENT: Head: Normocephalic and atraumatic. Nose: Nose normal. Eyes: Extraocular Movements: Extraocular movements intact. Cardiovascular: Rate and Rhythm: Normal rate and regular rhythm. Pulmonary: Effort: Pulmonary effort is normal. No respiratory distress. Musculoskeletal: General: Tenderness present. Cervical back: Tenderness present. Right lower leg: No edema. Left lower leg: No edema. Neurological: General: No focal deficit present. Mental Status: She is alert and oriented to person, place, and time. Psychiatric: Behavior: Behavior normal. Comments: Mild depression anxiety ASSESSMENT/PLAN: Migraine variant, intractable (Primary) Encounter for screening mammogram for breast cancer - MAMMOGRAM SCREENING SUZI BILATERAL; Future; Expected date: 09/19/2023 Other chronic pancreatitis (HCC) Recurrent major depressive disorder, in partial remission (HCC) S/P cervical spinal fusion Gastric bypass status for obesity Depression with anxiety Constipation, unspecified constipation type Check-out note: Please scan disability form and fax it too And mammogram Form - reviewed and filled up , signed Scan into medical record Cont meds Mammogram Shelly Castaneda MD documented in this encounter Nursing Notes * Luann Parker LPN - 09/19/2023 12:58 PM EDT Chief Complaint Patient presents with Forms Request Pt here today to have her forms for disability filled out by provider documented in this encounter Plan of Treatment Upcoming Encounters Date Type Department Care Team (Late st Contact Info) Description 09/23/2023 6:45 PM EDT Anticoagulation Pharmacy Call Center WB [address] [facility] [place] [address] [facility], [facility] [address] [facility] [address] 09/26/2023 10:30 AM EDT Imaging Radiology [facility] [address] [facility] [address] [place] [address] 09/30/2023 1:00 PM EDT Nurse Only Ancillary Department, [place] [address] [place] [address] [place], Nurse Annual Wellness [address] [place] [address] 10/09/2023 9:30 AM EDT Office Visit Gastroenterology, [facility] [address] [place] [address] Annabelle Ramirez CRNP [address] [facility] [address] 10/15/2023 11:40 AM EDT Office Visit Family [facility], [place] [address] [facility] [address] Jessee Wisdom MD [address] [place] [address] 09/14/2024 10:40 AM EDT Telemedicine Neurology, [place] [address], [place] [id number] Michelle Roth MD [address], [place] [id number] Scheduled Orders Name Type Priority Associated Diagnoses Orde r Schedule MAMMOGRAM SCREENING SUZI BILATERAL Medical Imaging Routine Encounter for screening mammogram for breast cancer Expected: 09/19/2023, Expires: 10/19/2024 Scheduled Procedures Name Priority Associated Diagnoses Date/Ti [...] this encounter Medical Devices Implanted Type Area Railcar Foreman Device Identifier Shelf Expiration Date Model / Serial / Lot Alloderm 2x4cm [id number] (8 Units) - [id number] - [id number] Implanted:Qty: 8 on 2015 by Sabina Guillory MD at [facility] Tissue - Human N/A: Esophagus [employer] 10/21/2016 [id number] / [id number] Stent Esoph Endomaxx [id number] - [id number] Implanted:Qty: 1 on 07/09/2013 at OR [facility] N/A: Esophagus [employer] 07/09/2015 [id number]-[id number] / / [id number] Stent Esoph Endomaxx [id number] - [id number] Implanted:Qty: 1 on 12/08/2013 at OR [facility] [employer] 06/23/2016 [id number]-[id number] / / [id number] Stent Esoph Endomaxx [id number] - [id number] Implanted:Qty: 1 on 10/19/2014 by Sabina Guillory MD at [facility] N/A: Esophagus [employer] 05/23/2017 [id number]-2315 / / [id number] Stent Wallflex Esophogeal 28x1 - [id number] - [id number] Implanted:Qty: 1 on 2015 by Sabina Guillory MD at [facility] N/A: Esophagus [employer] : ENDOSCOPY 06/23/2016 [id number] / [id number] / [id number] Stent Wallflex 27 Mm X 22 Mm [id number] Implanted:Qty: 1 on 2015 by Sabina Guillory MD at [facility] N/A: Esophagus [employer] : ENDOSCOPY [id number] / / Stent Eso Gw [id number] - [id number] Implanted:Qty: 1 on 02/16/2015 by Sabina Guillory MD at [facility] N/A: Esophagus [employer] 04/23/2017 [id number] / / [id number] Screw Ti Locking 1.8mm 497.78 - [id number] Implanted:Qty: 8 on 09/27/2021 by Messi Doll MD at [facility] Right: Spine Cervical SYNTHES 497.78 / / Screw Ti Expans 4.35mm 487.054 - [id number] Implanted:Qty: 8 on 09/27/2021 by Messi Doll MD at OR [facility] Right: Spine Cervical SYNTHES 487.054 / / Plate Cslp 487.355 - [id number] Implanted:Qty: 1 on 09/27/2021 by Messi Doll MD at OR [facility] Right: Spine Cervical SYNTHES 487.355 / / Cervical Vertigraft 5x7 - [id number] - [id number] Implanted:Qty: 1 on 09/27/2021 by Messi Doll MD at [facility] Right: Spine Cervical [employer] 01/23/2026 [id number] / [id number] / [id number] Cervical Vertigraft 6x8 - [id number] - [id number] Implanted:Qty: 1 on 09/27/2021 by Messi Doll MD at [facility] Right: Spine Cervical [employer] 11/10/2025 [id number] / [id number] / [id number] Cervical Vertigraft 5x7 - [id number] - [id number] Implanted:Qty: 1 on 09/27/2021 by Messi Doll MD at [facility] Right: Spine Cervical [employer] 04/09/2026 [id number] / [id number] / [id number] documented as of this encounter Visit Diagnoses Diagnosis Migraine variant, intractable- Primary Variants of migraine, not elsewhere classified, with intractable migraine, so stated, without mention of status migrainosus Encounter for screening mammogram for breast cancer Other chronic pancreatitis (HCC) Recurrent major depressive disorder, in partial remission (HCC) S/P cervical spinal fusion Arthrodesis status Gastric bypass status for obesity Bariatric surgery status Depression with anxiety Dysthymic disorder Constipation, unspecified constipation type documented in this encounter Advance Directives [...] the patient have Health Care Power of Farmworker Animal? No Full Code 01/12/2015 10:35 PM 01/21/2015 4:44 PM Question Answer Comments Discussion of Advance Directives occurred with: Not Discussed Full Code 12/22/2014 4:26 AM 12/25/2014 5:53 PM This or nu reflects the patients wishes and were consensually agreed upon. Question Answer Comments Discussion of Advance Directives occurred with: Patient Care Teams Personnel Recruiter Relationship Specialty Start Date End Date Jessee Wisdom MD [address] [place] [address] PCP - General Family Medicine 06/20/17 documented as of this encounter"
--- OUTSIDE RECORDS SUMMARY | 2023-10-28 10:28 | External Medical Summary | Summary of Care ---
Author Name Unknown Organization [facility] Address [address] [facility] [address] Phone [phone] Care Team Providers Care Field Clinical Engineer Name Role Phone Jessee Wisdom MD Primary Care Provider +1- [phone] Encounter Details Date Type Department Care Team (Late st Contact Info) Description 09/06/2023 Result Scan Unspecified Department Debora Miner CRNP [address] [place] [address] <No scans attached> Allergies Active Allergy Reactions Criticality Noted Date Comments Ciprofloxacin Nausea/vomiting 01/04/2023 Clindamycin Other (Please comment) 09/19/2020 Stomach pain Latex Rash 07/23/2006 Prolonged exposure only Morphine Other (Please comment) High 02/06/2020 Sulfa Antibiotics Hives 05/05/2004 documented as of this encounter (statuses as of 09/09/2023) Medications Medication Sig Dispensed Refills Start Date [...] as of this encounter (statuses as of 09/09/2023) Active Problems Problem Noted Date Diagnosed Date [...] of inactive term 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 [facility] OTHER*[id number] 02/03/2006 Anxiety state 08/07/2005 AGORAPHOBIA 08/07/2005 Class 2 obesity without seri ous comorbidity with body mass index (BMI) of 39.0 to 39.9 in adult 04/22/2000 Overview: Per Obesity Taxonomy documented as of this encounter (statuses as of 09/09/2023) Resolved Problems Problem Noted Date Diagnosed Date [...] as of this encounter (statuses as of 09/09/2023) Immunizations Name Administration Dates Next Due 08/07/2016, [...] Contact Info) Description 09/10/2023 2:00 PM EDT [facility] [place] [address] [facility] [phone] Jessee Wisdom MD [address] [facility] [facility] [phone] 09/23/2023 6:45 PM EDT [facility] Call Center [address] [place] [address] [facility] [address] [place] [address] 09/30/2023 1:00 PM EDT Nurse Only Ancillary Department, [place] [address] [facility] [address] [place], Nurse Annual Wellness [address] [facility] [facility] [address] 10/15/2023 11:40 AM EDT [facility] [place] [address] [facility] [phone] Jessee Wisdom MD [address] [facility] [address] 09/14/2024 10:40 AM EDT Telemedicine Neurology, [place] [address] [place] [address] Michelle Roth MD [address] [place] [address] Scheduled Procedures Name Priority Associated [...] this encounter Medical Devices Implanted Type Area Property Clerk Device Identifier Shelf Expiration Date Model / Serial / Lot Alloderm 2x4cm [id number] (8 Units) - [id number] - [id number] Implanted:Qty: 8 on 2015 by David Rosado MD at OR [facility] [place] Tissue - Human N/A: Esophagus [employer] 10/21/2016 [id number] / [id number] / [id number] Stent Esoph Endomaxx [id number] - [id number] Implanted:Qty: 1 on 07/09/2013 at OR [facility] [place] N/A: Esophagus [employer] 07/09/2015 [id number]-2315 / / [id number] Stent Esoph Endomaxx 01s747 - [id number] Implanted:Qty: 1 on 12/08/2013 at OR [facility] [place] [employer] 06/23/2016 KAIDEN-1915 / / [id number] Stent Esoph Endomaxx 99z744 - [id number] Implanted:Qty: 1 on 10/19/2014 by David Rosado MD at OR [facility] [place] N/A: Esophagus [employer] 05/23/2017 KAIDEN-2315 / / [id number] Stent Wallflex Esophogeal 28x1 - [id number] - [id number] Implanted:Qty: 1 on 2015 by David Rosado MD at OR [facility] [place] N/A: Esophagus [employer] ENDOSCOPY 06/23/2016 [id number] / [id number] / [id number] Stent Wallflex 27 Mm X 22 Mm [id number] Implanted:Qty: 1 on 2015 by David Rosado MD at OR [facility] [place] N/A: Esophagus [employer] : ENDOSCOPY [id number] / / Stent Eso Gw 01s130 [id number] - [id number] Implanted:Qty: 1 on 02/16/2015 by David Rosado MD at OR [facility] [place] N/A: Esophagus [email or web address] 04/23/2017 [id number] / / [id number] Screw Ti Locking 1.8mm 497.78 - [id number] Implanted:Qty: 8 on 09/27/2021 by Messi Doll MD at OR [facility] [place] Right: Spine Cervical SYNTHES 497.78 / / Screw Ti Expans 4.35mm 487.054 - [id number] Implanted:Qty: 8 on 09/27/2021 by Messi Doll MD at OR [facility] [place] Right: Spine Cervical SYNTHES 487.054 / / Plate Cslp 487.355 - [id number] Implanted:Qty: 1 on 09/27/2021 by Messi Dlol MD at OR [facility] [place] Right: Spine Cervical SYNTHES 487.355 / / Cervical Vertigraft 5x7 - [id number] - [id number] Implanted:Qty: 1 on 09/27/2021 by Messi Doll MD at OR [facility] [place] Right: Spine Cervical [employer] 01/23/2026 [id number] / [id number] [id number] / [id number] Cervical Vertigraft 6x8 - [id number] - [id number] Implanted:Qty: 1 on 09/27/2021 by Messi Doll MD at OR [facility] [place] Right: Spine Cervical [employer] 11/10/2025 [id number] / [id number] [id number] / [id number] Cervical Vertigraft 5x7 - [id number] - [id number] Implanted:Qty: 1 on 09/27/2021 by Messi Doll MD at OR [facility] [place] Right: Spine Cervical [employer] 04/09/2026 [id number] / [id number] [id number] / [id number] documented as of this encounter Procedures Procedure Name Priority Date/Time Associated Diagnosis Comments RADIOLOGY SCANNED RESULT 09/06/2023 documented in this encounter Results * RADIOLOGY SCANNED RESULT (09/06/2023) 09/06/2023 Debora WOODS DIAGNOST [facility] RADIOLOGY SERVICES documented in this encounter Advance Directives Latest [...] the patient have Health Care Power of Automotive Alignment Specialist? No Full Code 01/12/2015 10:35 PM 01/21/2015 4:44 PM Question Answer Comments Discussion of Advance Directives occurred with: Not Discussed Full Code 12/22/2014 4:26 AM 12/25/2014 5:53 PM This or nu reflects the patients wishes and were consensually agreed upon. Question Answer Comments Discussion of Advance Directives occurred with: Patient Care Teams Field Clinical Engineer Relationship Specialty Start Date End Date Jessee Wisdom MD [address] [facility] [place] [address] PCP - General Family Medicine 06/20/17 documented as of this encounter
--- OUTSIDE RECORDS SUMMARY | 2023-10-28 10:28 | External Medical Summary | Summary of Care ---
Author Name Unknown Organization [facility] Address [address] [place] [address] Phone [phone] Care Team Providers Care Automotive Service Professional Name Role Phone Jessee Wisdom MD Primary Care Provider +1- [phone] Reason for Visit * Reason Onset Date Comments Medication Refill 09/01/2023 Encounter Details Date Type Department Care Team (Late st Contact Info) Description [facility] [address] [place], [place] [phone] Michelle Roth MD [address] [place] [address] Primary insomnia Allergies Active Allergy Reactions Criticality Noted Date Comments Ciprofloxacin Nausea/vomiting 01/04/2023 Clindamycin Other (Please comment) 09/19/2020 Stomach pain Latex Rash 07/23/2006 Prolonged exposure only Morphine Other (Please comment) High 02/06/2020 Sulfa Antibiotics Hives 05/05/2004 documented as of this encounter (statuses as of 09/05/2023) Medications Medication Sig Dispensed Refills Start Date [...] 90 Tablet 3 08/30/2023 08/30/19 25 Active Furosemide 20 MG Oral Tablet (Lasix)Indications: Bilateral lower extremity edema TAKE ONE TABLET BY MOUTH EVERY DAY IN THE MORNING 90 Tablet 1 08/28/2023 08/28/19 25 Active Zolpidem Tartrate ER 12.5 MG Oral Tablet Extended ReleaseIndications: Primary insomnia Take one tablet by mouth every night at bedtime 30 Tablet 5 09/05/2023 Active Zolpidem Tartrate ER 12.5 MG Oral Tablet Extended ReleaseIndications: Primary insomnia Take one tablet by mouth every night at bedtime 30 Tablet 5 03/19/2023 09/01/19 24 Discontinu ed(Refill) documented as of this encounter (statuses as of 09/05/2023) Active Problems Problem Noted Date Diagnosed Date [...] term 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 [facility] OTHER*[id number] 02/03/2006 Anxiety state 08/07/2005 AGORAPHOBIA 08/07/2005 Class 2 obesity without seri ous comorbidity with body mass index (BMI) of 39.0 to 39.9 in adult 04/22/2000 Overview: Per Obesity Taxonomy documented as of this encounter (statuses as of 09/05/2023) Resolved Problems Problem Noted Date Diagnosed Date [...] as of this encounter (statuses as of 09/05/2023) Immunizations Name Administration Dates Next Due 08/07/2016, 6,11/29/2015,04/12/201411/05/2016 COVID-19 mRNA, LNP-s, No Pre serve, 2-Dose [...] Telephone Encounter - Michelle Roth MD - 09/05/2023 10:55 AM EDTSigned Prescriptions: Disp Refills Zolpidem Tartrate ER 12.5 MG Oral Tablet E*30 Tab*5 Sig: Take one tablet by mouth every night at bedtime Authorizing Provider: MICHELLE ROTH * Telephone Encounter - Placido Brown LPN - 09/05/2023 10:45 AM EDTPending Prescriptions: Disp Refills Zolpidem Tartrate ER 12.5 MG Oral Tablet E*30 Tab*5 Sig: Take one tablet by mouth every night at bedtime * Telephone Encounter - Екатерина Torres, [facility] - 09/05/2023 9:12 AM EDTPending Prescriptions: Disp Refills Zolpidem Tartrate ER 12.5 MG Oral Tablet E*30 Tab*5 Sig: Take one tablet by mouth every night at bedtime documented in this encounter Plan of Treatment Upcoming Encounters Date Type Department Care Team (Late st Contact Info) Description 09/10/2023 2:00 PM EDT Office Visit [address] [place] [phone] Jessee Wisdom MD [address] [place], [place] [phone] 09/23/2023 6:45 PM EDT [facility] Call Center [address] [place] [address] [facility] [address] [place] [address] 09/30/2023 1:00 PM EDT Nurse Only Ancillary Department, [address] [phone] [place] Nurse Annual Wellness [address] [facility] [place] [phone] 10/15/2023 11:40 AM EDT Office Visit [address] [place] [phone] Jessee Wisdom MD [address] [place], [place] [phone] 09/14/2024 10:40 AM EDT Telemedicine Neurology, [place] [address] [place] [address] Michelle Roth MD [address] [place] [address] Scheduled Procedures Name Priority Associated [...] this encounter Medical Devices Implanted Type Area Emergency Room Rn Device Identifier Shelf Expiration Date Model / Serial / Lot Alloderm 2x4cm [id number] (8 Units) - [id number] - [id number] Implanted:Qty: 8 on 2015 by David Rosado MD at [place] [facility] [place] Tissue - Human N/A: Esophagus [employer] 10/21/2016 [id number] / [id number] / [id number] Stent Esoph Endomaxx 52t969 - [id number] Implanted:Qty: 1 on 07/09/2013 at [place] [facility] [place] N/A: Esophagus [employer] 07/09/2015 KAIDEN-2315 / / [id number] Stent Esoph Endomaxx 30s892 - [id number] Implanted:Qty: 1 on 12/08/2013 at [place] [facility] [place] [employer] 06/23/2016 KAIDEN-1915 / / [id number] Stent Esoph Endomaxx 19x756 - [id number] Implanted:Qty: 1 on 10/19/2014 by David Rosado MD at [place] [facility] [place] N/A: Esophagus [employer] 05/23/2017 KAIDEN-2315 / / [id number] Stent Wallflex Esophogeal 28x1 - [id number] - [id number] Implanted:Qty: 1 on 2015 by David Rosado MD at [place] [facility] [place] N/A: Esophagus [employer] : ENDOSCOPY 06/23/2016 [id number] / [id number] / [id number] Stent Wallflex 27 Mm X 22 Mm [id number] Implanted:Qty: 1 on 2015 by David Rosado MD at [place] [facility] [place] N/A: Esophagus [employer] : ENDOSCOPY [id number] / / Stent Eso Gw 30t056 85970-626 - [id number] Implanted:Qty: 1 on 02/16/2015 by David Rosado MD at [place] [facility] [place] N/A: Esophagus [employer] 04/23/2017 [id number] / / [id number] Screw Ti Locking 1.8mm 497.78 - [id number] Implanted:Qty: 8 on 09/27/2021 by Messi Doll MD at [place] [facility] [place] Right: Spine Cervical SYNTHES 497.78 / / Screw Ti Expans 4.35mm 487.054 - [id number] Implanted:Qty: 8 on 09/27/2021 by Messi Doll MD at [place] [facility] [place] Right: Spine Cervical SYNTHES 487.054 / / Plate Cslp 487.355 - [id number] Implanted:Qty: 1 on 09/27/2021 by Messi Doll MD at [place] [facility] [place] Right: Spine Cervical SYNTHES 487.355 / / Cervical Vertigraft 5x7 - [id number] - [id number] Implanted:Qty: 1 on 09/27/2021 by Messi Doll MD at [place] [facility] [place] Right: Spine Cervical [employer] 01/23/2026 [id number] / [id number] 086 / [id number] Cervical Vertigraft 6x8 - [id number] - [id number] Implanted:Qty: 1 on 09/27/2021 by Messi Doll MD at [place] [facility] [place] Right: Spine Cervical [employer] 11/10/2025 [id number] / [id number] 053 / [id number] Cervical Vertigraft 5x7 - [id number] - [id number] Implanted:Qty: 1 on 09/27/2021 by Messi Doll MD at [place] [facility] [place] Right: Spine Cervical [employer] 04/09/2026 [id number] / [id number] 091 / [id number] [id number] documented as of this encounter Visit [...] the patient have Health Care Power of Forestry Farm Laborer? No Full Code 01/12/2015 10:35 PM 01/21/2015 4:44 PM Question Answer Comments Discussion of Advance Directives occurred with: Not Discussed Full Code 12/22/2014 4:26 AM 12/25/2014 5:53 PM This or nu reflects the patients wishes and were consensually agreed upon. Question Answer Comments Discussion of Advance Directives occurred with: Patient Care Teams Automotive Service Professional Relationship Specialty Start Date End Date Jessee Wisdom MD [address] [place] [address] PCP - General Family Medicine 06/20/17 documented as of this encounter
--- OUTSIDE RECORDS SUMMARY | 2023-10-28 10:28 | External Medical Summary | Summary of Care ---
Author Name Unknown Organization [facility] Address [address] [place] [address] Phone [phone] Care Team Providers Care Vp Design Name Role Phone Jessee Wisdom MD Primary Care Provider +1- [phone] Encounter Details Date Type Department Care Team (Late st Contact Info) Description 09/02/2023 Result Scan Unspecified Department <No scans attached> Allergies Active Allergy Reactions Criticality Noted Date Comments Ciprofloxacin Nausea/vomiting 01/04/2023 Clindamycin Other (Please comment) 09/19/2020 Stomach pain Latex Rash 07/23/2006 Prolonged exposure only Morphine Other (Please comment) High 02/06/2020 Sulfa Antibiotics Hives 05/05/2004 documented as of this encounter (statuses as of 09/04/2023) Medications Medication Sig Dispensed Refills Start Date [...] MORNING 90 Tablet 1 08/28/2023 5 Active documented as of this encounter (statuses as of 09/04/2023) Active Problems Problem Noted Date Diagnosed Date [...] 12/25/2014 Depression with anxiety 12/25/2014 Constipation 12/11/2013 [facility] current use of 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 1 08/19/2012 Intestinal postoperative nonabsorption 3 Gastric bypass status for obesity 02/19/2013 Dysphagia 10/27/2012 Degeneration of cervical intervertebral disc 03/2011 Insomnia 08/31/2009 Overview: ICD-10 update of inactive term 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 [facility] RESEARCH OTHER*[id number] 02/03/2006 Anxiety state 08/07/2005 AGORAPHOBIA 08/07/2005 Class 2 obesity without seri ous comorbidity with body mass index (BMI) of 39.0 to 39.9 in adult 04/22/2000 Overview: Per Obesity Taxonomy documented as of this encounter (statuses as of 09/04/2023) Resolved Problems Problem Noted Date Diagnosed Date [...] as of this encounter (statuses as of 09/04/2023) Immunizations Name Administration Dates Next Due 08/07/2016, [...] PM EDT Anticoagulation Pharmacy Call Center [address] [place] [address] C[facility], [facility] [address] [place] [address] 09/30/2023 1:00 PM EDT Nurse Only Ancillary Department, [place] [address] [place] [address] [place], Nurse Annual Wellness [address] [place] [address] 10/15/2023 11:40 AM EDT Office Visit [place] [address] [place] [phone] Jessee Wisdom MD [address] [place] [address] 09/14/2024 10:40 AM EDT Telemedicine Neurology, [place] [address] [place], [place] [phone] Michelle Roth MD [address] [place] [address] Scheduled Procedures Name Priority Associated [...] this encounter Medical Devices Implanted Type Area Straight Ruling Machine Operator Device Identifier Shelf Expiration Date Model / Serial / Lot Alloderm 2x4cm [id number] (8 Units) - [id number] - [id number] Implanted:Qty: 8 on 2015 by David Rosado MD at OR [facility] [place] Tissue - Human N/A: Esophagus [employer] 10/21/2016 [id number] / [id number] / [id number] Stent Esoph Endomaxx [id number] - [id number] Implanted:Qty: 1 on 07/09/2013 at OR [facility] [place] N/A: Esophagus [employer] 07/09/2015 KAIDEN-2315 / / [id number] Stent Esoph Endomaxx 28m295 - [id number] Implanted:Qty: 1 on 12/08/2013 at OR [facility] [place] [employer] 06/23/2016 KAIDEN-1915 / / [id number] Stent Esoph Endomaxx [id number] - [id number] Implanted:Qty: 1 on 10/19/2014 by David Rosado MD at OR [facility] [place] N/A: Esophagus [employer] 05/23/2017 KAIDEN-2315 / / [id number] Stent Wallflex Esophogeal 28x1 - [id number] - [id number] Implanted:Qty: 1 on 2015 by David Rosado MD at OR [facility] [place] N/A: Esophagus [employer] : ENDOSCOPY 06/23/2016 [id number] / [id number] / [id number] Stent Wallflex 27 Mm X 22 Mm 6512 Implanted:Qty: 1 on 2015 by David Rosado MD at OR [facility] [place] N/A: Esophagus [employer] : ENDOSCOPY [id number] / / Stent Eso Gw 86c182 [id number] - [id number] Implanted:Qty: 1 on 02/16/2015 by David Rosdao MD at OR [facility] [place] N/A: Esophagus [employer] 04/23/2017 [id number] / / [id number] Screw Ti Locking 1.8mm 497.78 - [id number] Implanted:Qty: 8 on 09/27/2021 by Messi Doll MD at OR [facility] [place] Right: Spine Cervical SYNTHES 497.78 / / Screw Ti Expans 4.35mm 487.054 - [id number] Implanted:Qty: 8 on 09/27/2021 by Messi Doll MD at OR [facility] [place] Right: Spine Cervical SYNTHES 487.054 / / Plate Cslp 487.355 - [id number] Implanted:Qty: 1 on 09/27/2021 by Messi Doll MD at OR [facility] [place] Right: Spine Cervical SYNTHES 487.355 / / Cervical Vertigraft 5x7 - [id number] - [id number] Implanted:Qty: 1 on 09/27/2021 by Messi Doll MD at OR [facility] [place] Right: Spine Cervical [employer] 01/23/2026 [id number] / [id number] 086 / [id number] Cervical Vertigraft 6x8 - [id number] - [id number] Implanted:Qty: 1 on 09/27/2021 by Messi Doll MD at OR [facility] [place] Right: Spine Cervical [employer] 11/10/2025 [id number] / [id number] 053 / [id number] [id number] Cervical Vertigraft 5x7 - [id number] - [id number] Implanted:Qty: 1 on 09/27/2021 by Messi Doll MD at OR [facility] [place] Right: Spine Cervical [employer] 04/09/2026 [id number] / [id number] 091 / [id number] [id number] documented as of this encounter Procedures Procedure Name Priority Date/Time Associated Diagnosis Comments RADIOLOGY SCANNED RESULT 09/02/2023 documented in this encounter Results * RADIOLOGY SCANNED RESULT (09/02/2023) 09/02/2023 No Physician Data Unknown DIAGNOSTIC RAD IOLOGY SERVICES documented in this encounter Advance Directives [...] the patient have Health Care Power of Residential Direct Support Professional? No Full Code 01/12/2015 10:35 PM 01/21/2015 4:44 PM Question Answer Comments Discussion of Advance Directives occurred with: Not Discussed Full Code 12/22/2014 4:26 AM 12/25/2014 5:53 PM This or nu reflects the patients wishes and were consensually agreed upon. Question Answer Comments Discussion of Advance Directives occurred with: Patient Care Teams Vp Design Relationship Specialty Start Date End Date Jessee Wisdom MD [address] [facility] [place] [address] PCP - General Family Medicine 06/20/17 documented as of this encounter
--- OUTSIDE RECORDS SUMMARY | 2023-10-28 10:28 | External Medical Summary | Summary of Care ---
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 Thank you EARLENE Bah * Telephone Encounter - Shelly Castaneda MD - 09/03/2023 12:55 PM EDT Went through file but I dont see her paper form on my desk * Telephone Encounter - Herminia England OSA - 08/27/2023 10:00 AM EST Pt called to inform Dr. Castaneda that she needs to have her disability paperwork signed as soon as possible so that she can return it to start receiving her payments. Please contact pt when paperwork is ready for pick-up. documented in this encounter Plan of Treatment Upcoming Encounters Date Type Department Care Team (Late st Contact Info) Description 09/10/2023 2:00 PM EDT Office Visit [facility] [address] [place] [facility] [place] [phone] Jessee Wisdom MD [address] [facility] [place] [id number] 09/23/2023 6:45 PM EDT Anticoagulation Pharmacy Call Center WB [address] [facility] [place] [address] [facility] [address] [facility] [place] [address] 09/30/2023 1:00 PM EDT Nurse Only Ancillary Department, [address] [address] [place], Nurse [facility] [address] [place], [place] [id number] 10/15/2023 11:40 AM EDT Office Visit Family Practice, [address] [phone] Jessee Wisdom MD [address] [place], [place] [id number] 09/14/2024 10:40 AM EDT Telemedicine Neurology, [place] [address] [place] [address] Michelle Roth MD [address] [place], [place] [phone] Scheduled Procedures Name Priority Associated Diagnoses Date/Ti [...] this encounter Medical Devices Implanted Type Area Polymerization Supervisor Device Identifier Shelf Expiration Date Model / Serial / Lot Alloderm 2x4cm [id number] (8 Units) - [id number] - [id number] Implanted:Qty: 8 on 2015 by David Rosado [place] [facility] [place] - Human N/A: Esophagus 3D Data 10/21/2016 [id number] / [id number] / [id number] Stent Esoph Endomaxx 78l052 - [id number] Implanted:Qty: 1 on 07/09/2013 at [place] [facility] [place] N/A: Esophagus [employer] 07/09/2015 KAIDEN-2315 / / [id number] Stent Esoph Endomaxx 21k060 - [id number] Implanted:Qty: 1 on 12/08/2013 at [place] [facility] [place] [employer] 06/23/2016 KAIDEN-1915 / / [id number] Stent Esoph Endomaxx 41v672 - [id number] Implanted:Qty: 1 on 10/19/2014 by David Rosado MD at [place] [facility] [place] N/A: Esophagus [employer] 05/23/2017 KAIDEN-2315 / / [id number] Stent Wallflex Esophogeal 28x1 - [id number] - [id number] Implanted:Qty: 1 on 2015 by David Rosado MD at [place] [facility] [place] N/A: Esophagus [employer] : ENDOSCOPY 06/23/2016 [id number] / [id number] / [id number] Stent Wallflex 27 Mm X 22 Mm [id number] Implanted:Qty: 1 on 2015 by David Rosado MD at [place] [facility] [place] N/A: Esophagus [employer] : ENDOSCOPY [id number] / / Stent Eso Gw [id number] - [id number] Implanted:Qty: 1 on 02/16/2015 by David Rosado MD at [place] [facility] [place] N/A: Esophagus [employer] 04/23/2017 [id number] / / [id number] Screw Ti Locking 1.8mm 497.78 - [id number] Implanted:Qty: 8 on 09/27/2021 by Messi Doll MD at [place] [facility] [place] Right: Spine Cervical SYNTHES 497.78 / / Screw Ti Expans 4.35mm 487.054 - [id number] Implanted:Qty: 8 on 09/27/2021 by Messi Doll MD at [place] [facility] [place] Right: Spine Cervical SYNTHES 487.054 / / Plate Cslp 487.355 - [id number] Implanted:Qty: 1 on 09/27/2021 by Messi Doll MD at [place] [facility] [place] Right: Spine Cervical SYNTHES 487.355 / / Cervical Vertigraft 5x7 - [id number] - [id number] Implanted:Qty: 1 on 09/27/2021 by Messi Doll MD at [place] [facility] [place] Right: Spine Cervical LIFENET 01/23/2026 [id number] / [id number] / [id number] Cervical Vertigraft 6x8 - [id number] - [id number] Implanted:Qty: 1 on 09/27/2021 by Messi Doll MD at [place] [facility] [place] Right: Spine Cervical LIFENET 11/10/2025 [id number] / [id number] / [id number] Cervical Vertigraft 5x7 - [id number] - [id number] Implanted:Qty: 1 on 09/27/2021 by Messi Doll MD at [facility] Right: Spine Cervical LIFENET 04/09/2026 [id number] / [id number] / [id number] documented as of this encounter Advance [...] the patient have Health Care Power of Licensed Funeral Director? No Full Code 01/12/2015 10:35 PM 01/21/2015 4:44 PM Question Answer Comments Discussion of Advance Directives occurred with: Not Discussed Full Code 12/22/2014 4:26 AM 12/25/2014 5:53 PM This or nu reflects the patients wishes and were consensually agreed upon. Question Answer Comments Discussion of Advance Directives occurred with: Patient Care Teams President Ceo & Founder Relationship Specialty Start Date End Date Jessee Wisdom MD [address] [facility] [place] [address] PCP - General Family Medicine 06/20/17 documented as of this encounter
--- OUTSIDE RECORDS SUMMARY | 2023-10-28 10:29 | External Medical Summary | Summary of Care ---
Author Name Unknown Organization [facility] Address [address] [place] [address] Phone [phone] Care Team Providers Care Client Business Manager Name Role Phone Jessee Wisdom MD Primary Care Provider +1- [phone] Reason for Visit * Reason Onset Date Comments Advice 08/27/2023 Encounter Details Date Type Department Care Team (Late st Contact Info) Description 08/27/2023 Telephone [facility] [address] [place] [address] Jessee Wisdom MD [address] [place] [address] Advice Allergies Active Allergy Reactions Criticality Noted Date Comments Ciprofloxacin Nausea/vomiting 01/04/2023 Clindamycin Other (Please comment) 09/19/2020 Stomach pain Latex Rash 07/23/2006 Prolonged exposure only Morphine Other (Please comment) High 02/06/2020 Sulfa Antibiotics Hives 05/05/2004 documented as of this encounter (statuses as of 09/03/2023) Medications Medication Sig Dispensed Refills Start Date [...] as of this encounter (statuses as of 09/03/2023) Active Problems Problem Noted Date Diagnosed Date [...] fistula 02/19/2015 Selenium deficiency 01/20/2015 Overview: SELENIUM(mcg/L) Zeehsan Dt/Tm Resulted Value Low High Status 01/19/15 6:54A 01/20/15 58* 63 160 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 Chronic abdominal pain 12/25/2014 Depression with anxiety 12/25/2014 Constipation 12/11/2013 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 1 08/19/2012 Intestinal postoperative nonabsorption 3 Gastric bypass status for obesity 02/19/2013 Dysphagia 10/27/2012 Degeneration of cervical intervertebral disc 03/2011 Insomnia 08/31/2009 Overview: ICD-10 update of inactive term 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 SHIN RESEARCH OTHER*[id number] 02/03/2006 Anxiety state 08/07/2005 AGORAPHOBIA 08/07/2005 Class 2 obesity without seri ous comorbidity with body mass index (BMI) of 39.0 to 39.9 in adult 04/22/2000 Overview: Per Obesity Taxonomy documented as of this encounter (statuses as of 09/03/2023) Resolved Problems Problem Noted Date Diagnosed Date [...] as of this encounter (statuses as of 09/03/2023) Immunizations Name Administration Dates Next Due 08/07/2016, [...] EDT Anticoagulation Pharmacy Call Center [address] [place] [id number] [facility] [address] [facility] [place] [address] 09/30/2023 1:00 PM EDT Nurse Only Ancillary Department, [place] [address] [facility] [address] [facility] [address] [facility] [address] 10/15/2023 11:40 AM EDT Office Visit Family Practice, [place] [address] [facility] [place] [address] Jessee Wisdom MD [address] [place] [address] 09/14/2024 10:40 AM EDT Telemedicine Neurology, [place] [address] [place] [address] Michelle Roth MD [address] [place] [address] Scheduled Procedures Name Priority Associated Diagnoses Date/Ti [...] this encounter Medical Devices Implanted Type Area Parasitology Teacher Device Identifier Shelf Expiration Date Model / Serial / Lot Alloderm 2x4cm 021947 (8 Units) - [id number] - [id number] Implanted:Qty: 8 on 2015 by David Rosado MD at [place] [facility] [place] Tissue - Human N/A: Esophagus [employer] 10/21/2016 [id number] / [id number] / [id number] Stent Esoph Endomaxx 76k542 - [id number] Implanted:Qty: 1 on 07/09/2013 at [place] [facility] [place] N/A: Esophagus [employer] 07/09/2015 KAIDEN-2315 / / [id number] Stent Esoph Endomaxx 25s585 - [id number] Implanted:Qty: 1 on 12/08/2013 at OR [facility] [employer] 06/23/2016 KAIDEN-1915 / / [id number] Stent Esoph Endomaxx 42z450 - [id number] Implanted:Qty: 1 on 10/19/2014 by David Rosado MD at [place] [facility] [place] N/A: Esophagus [employer] 05/23/2017 KAIDEN-2315 / / [id number] Stent Wallflex Esophogeal 28x1 - [id number] - [id number] Implanted:Qty: 1 on 2015 by David Rosado MD at [place] [facility] [place] N/A: Esophagus [employer] : ENDOSCOPY 06/23/2016 [id number] / [id number] / [id number] Stent Wallflex 27 Mm X 22 Mm [id number] Implanted:Qty: 1 on 2015 by David Rosado MD at [place] [facility] [place] N/A: Esophagus [employer] : ENDOSCOPY [id number] / / Stent Eso Gw 60g315 11431-749 - [id number] Implanted:Qty: 1 on 02/16/2015 by David Rosado MD at OR [facility] N/A: Esophagus [employer] 04/23/2017 [id number] / / [id number] Screw Ti Locking 1.8mm 497.78 - [id number] Implanted:Qty: 8 on 09/27/2021 by Messi Doll MD at [place] [facility] Right: Spine Cervical SYNTHES 497.78 / / Screw Ti Expans 4.35mm 487.054 - [id number] Implanted:Qty: 8 on 09/27/2021 by Messi Doll MD at [place] [facility] Right: Spine Cervical SYNTHES 487.054 / / Plate Cslp 487.355 - [id number] Implanted:Qty: 1 on 09/27/2021 by Messi Doll MD at [place] [facility] Right: Spine Cervical SYNTHES 487.355 / / Cervical Vertigraft 5x7 - [id number] - [id number] Implanted:Qty: 1 on 09/27/2021 by Messi Doll MD at [place] [facility] Right: Spine Cervical LIFENET 01/23/2026 [id number] / [id number] 086 / [id number] Cervical Vertigraft 6x8 - [id number] - [id number] Implanted:Qty: 1 on 09/27/2021 by Messi Doll MD at [place] [facility] Right: Spine Cervical LIFENET 11/10/2025 [id number] / [id number] 053 / [id number] [id number] Cervical Vertigraft 5x7 - [id number] - [id number] Implanted:Qty: 1 on 09/27/2021 by Messi Doll MD at [place] [facility] [place] Right: Spine Cervical LIFENET 04/09/2026 [id number] / [id number] [id number] / [id number] documented as of this encounter Advance [...] the patient have Health Care Power of Classification Officer? No Full Code 01/12/2015 10:35 PM 01/21/2015 4:44 PM Question Answer Comments Discussion of Advance Directives occurred with: Not Discussed Full Code 12/22/2014 4:26 AM 12/25/2014 5:53 PM This or nu reflects the patients wishes and were consensually agreed upon. Question Answer Comments Discussion of Advance Directives occurred with: Patient Care Teams Client Business Manager Relationship Specialty Start Date End Date Jessee Wisdom MD [address] [facility] [place] [address] PCP - General Family Medicine 06/20/17 documented as of this encounter
--- OUTSIDE RECORDS SUMMARY | 2023-10-28 10:29 | External Medical Summary | Summary of Care ---
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 1 08/19/2012 Intestinal postoperative nonabsorption 3 Gastric bypass status for obesity 02/19/2013 Dysphagia 10/27/2012 Degeneration of cervical intervertebral disc 03/2011 Insomnia 08/31/2009 Overview: ICD-10 update of inactive term 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 SHIN RESEARCH OTHER*[id number] 02/03/2006 Anxiety state 08/07/2005 AGORAPHOBIA 08/07/2005 Class [...] EDT Anticoagulation Pharmacy Call Center [address] [place] [address] [facility] [address] [facility] [place] [address] 09/30/2023 1:00 PM EDT Nurse Only Ancillary Department, [place] [address] [facility] [address] [facility] [address] [facility] [address] 10/15/2023 11:40 AM EDT Office Visit Family Practice, [place] [address] [facility] [place] [address] Jessee Wisdom MD [address] [place] [address] 09/14/2024 10:40 AM EDT Telemedicine Neurology, [place] [address] [place] [address] Michelle Roth MD [address] [place] [address] Scheduled Procedures Name Priority Associated Diagnoses Date/Ti [...] this encounter Medical Devices Implanted Type Area Table Saw Operator Device Identifier Shelf Expiration Date Model / Serial / Lot Alloderm 2x4cm [id number] (8 Units) - [id number] - [id number] Implanted:Qty: 8 on 2015 by [place]ado [place] [facility] [place] - Human N/A: Esophagus [employer] 10/21/2016 000232 / [id number] / [id number] Stent Esoph Endomaxx 67p907 - [id number] Implanted:Qty: 1 on 07/09/2013 [place] [facility] [place]A: Esophagus [employer] 07/09/2015 KAIDEN-2315 / / [id number] Stent Esoph Endomaxx 26k852 - [id number] Implanted:Qty: 1 on 12/08/2013 [place] [facility] [place] [employer] 06/23/2016 KAIDEN-1915 / / [id number] Stent Esoph Endomaxx 79d219 - [id number] Implanted:Qty: 1 on 10/19/2014 by David Rosado MD [place] [facility] [place]/A: Esophagus [employer] 05/23/2017 KAIDEN-2315 / / [id number] Stent Wallflex Esophogeal 28x1 - [id number] - [id number] Implanted:Qty: 1 on 2015 by David Rosado MD [place] [facility] [place] N/A: Esophagus [employer] : ENDOSCOPY 06/23/2016 [id number] / [id number] / [id number] Stent Wallflex 27 Mm X 22 Mm [id number] Implanted:Qty: 1 on 2015 by David Rosado MD [place] [facility] [place] N/A: Esophagus [employer] : ENDOSCOPY [id number] / / Stent Eso Gw 37m467 [id number] - [id number] Implanted:Qty: 1 on 02/16/2015 by David Rosado MD [place] [facility] [place] N/A: Esophagus [employer] 04/23/2017 [id number] / / [id number] Screw Ti Locking 1.8mm 497.78 - [id number] Implanted:Qty: 8 on 09/27/2021 by Messi Doll MD [place] [facility] [place] Right: Spine Cervical SYNTHES 497.78 / / Screw Ti Expans 4.35mm 487.054 - [id number] Implanted:Qty: 8 on 09/27/2021 by Messi Doll MD [place] [facility] [place] Right: Spine Cervical SYNTHES 487.054 / / Plate Cslp 487.355 - [id number] Implanted:Qty: 1 on 09/27/2021 by Messi oDll MD [place] [facility] [place]: Spine Cervical SYNTHES 487.355 / / Cervical Vertigraft 5x7 - [id number] - [id number] Implanted:Qty: 1 on 09/27/2021 by Messi Doll MD [place] [facility] [place] Right: Spine Cervical LIFENET 01/23/2026 [id number] / [id number] 086 / [id number] Cervical Vertigraft 6x8 - [id number] - [id number] Implanted:Qty: 1 on 09/27/2021 by Messi Doll MD [place] [facility] [place] Right: Spine Cervical LIFENET 11/10/2025 OK6G-I44E / [id number] 053 / [id number] Cervical Vertigraft 5x7 - [id number] - [id number] Implanted:Qty: 1 on 09/27/2021 by Messi Doll MD [place] [facility] [place] Right: Spine Cervical LIFENET 04/09/2026 [id number] / [id number] [id number] / [id number] documented as of this encounter Advance [...] the patient have Health Care Power of Cook Fishing Vessel? No Full Code 01/12/2015 10:35 PM 01/21/2015 4:44 PM Question Answer Comments Discussion of Advance Directives occurred with: Not Discussed Full Code 12/22/2014 4:26 AM 12/25/2014 5:53 PM This or nu reflects the patients wishes and were consensually agreed upon. Question Answer Comments Discussion of Advance Directives occurred with: Patient Care Teams Deck Engineer Relationship Specialty Start Date End Date Jessee Wisdom MD [address] [facility] [place] [address] PCP - General Family Medicine 06/20/17 documented as of this encounter
[2023-10-28] MEDS: SODIUM CHLORIDE 0.9% 1,000 ML IV SCH (11:03)
[2023-10-28] MEDS: ONDANSETRON INJ 2 MG/ML 2 ML VIAL IV PRN (13:52)
[2023-10-28] MEDS: busPIRone 5 MG TAB PO SCH (14:40)
[2023-10-28] MEDS: oxyCODONE HCL IR 5 MG TAB (IMMEDIATE RELEASE) PO SCH (15:31)
[2023-10-28] MEDS: PROMETHAZINE HCL 25 MG TAB PO PRN (16:05)
[2023-10-28] MEDS: HYDROmorphone INJ 0.5 MG/0.5 ML SYR IV PRN (16:37)
[2023-10-28] MEDS: POLYETHYLENE (MIRALAX) 17 GM PACK PO SCH (21:33)
[2023-10-28] MEDS: AMITRIPTYLINE HCL 50 MG TAB PO SCH (21:34)
[2023-10-28] MEDS: tiZANidine HCL 4 MG TABLET PO SCH (21:34)
[2023-10-28] MEDS: ZOLPIDEM TARTRATE 5 MG TAB PO SCH (21:35)
[2023-10-28] MEDS: PANTOprazole 40 MG TAB PO SCH (21:35)
--- NOTE | 2023-10-28 22:25 | Electrocardiogram Report ---
Test Reason : Blood Pressure : / mmHG Vent. Rate : 069 BPM Atrial Rate : 069 BPM P-R Int : 160 ms QRS Dur : 090 ms QT Int : 410 ms P-R-T Axes : 063 050 054 degrees QTc Int : 439 ms Normal sinus rhythm Normal ECG When compared with ECG of 16-MAY-2022 19:34, Criteria for Septal infarct are no longer Present T wave inversion no longer evident in Anterior leads Confirmed by Prasad Clifton ([id number]) on 10/28/2023 10:24:40 PM Referred By: REFERRED SELF Confirmed By:Prasad Clifton
[2023-10-29 08:21] LABS: Albumin Level 3.5 gm/dl (3.4-5.0); Bilirubin Direct 0.1 mg/dl (0-0.2); Bilirubin,Total 0.5 mg/dl (0.2-1.0); Calcium 7.7 mg/dl (8.6-10.3); Potassium 4.1 mmol/L (3.5-5.1)
[2023-10-29 08:26] LABS: INR 4.2 (0.9-1.1)
[2023-10-29 08:29] LABS: Est GFR (African American) 113.6 ml/min
[2023-10-29 08:30] LABS: BUN Creatinine Ratio 16.1 (10-20); Creatinine Clr Calc Pharmacy 124.2 ml/min; Total Protein 6.3 gm/dl (6.0-8.3)
[2023-10-29 08:34] LABS: Basophils # (auto) 0.06 K/uL (0.00-0.20); Eosinophils # (auto) 0.15 K/uL (0.00-0.50); Eosinophils % (auto) 2.5 %; Hematocrit (blood only) 42.1 % (37.0-47.0); Hemoglobin 13.3 g/dl (12.0-16.0); Immature Granulocytes # (auto) 0.02 K/uL (0.01-0.20); Immature Granulocytes % (auto) 0.3 %; Lymphocytes # (auto) 2.35 K/uL (1.20-3.40); Mean Corpuscular Hemoglobin 28.9 pg (25.0-34.0); Mean Corpuscular Hgb Conc 31.6 g/dL (32.0-36.0); Mean Corpuscular Volume 91.3 fL (80.0-100.0); Mean Platelet Volume 9.7 fL (9.4-12.4); Monocytes # (auto) 0.84 K/uL (0.11-0.59); Neutrophils % (auto) 43.2 %; Platelet Count 344 K/uL (130-400); RDW Coefficient of Variation 17.9 % (11.5-14.5); RDW Standard Deviation 59.6 fL (36.4-46.3); Red Blood Count 4.61 M/uL (4.20-5.40); White Blood Count 6.02 K/ul (4.8-10.8)
[2023-10-29] MEDS: ACETAMINOPHEN 325 MG TAB PO PRN (08:42)
[2023-10-29] MEDS: FLUTICASONE PROPIONATE NA SPR 16 GM BTL SCH (08:44)
[2023-10-29] MEDS: DULoxetine HCL 60 MG CAP PO SCH (08:44)
[2023-10-29] MEDS: buPROPion XL 300 MG TABCR PO SCH (08:44)
[2023-10-29] MEDS: LINACLOTIDE 145 MCG CAPSULE PO SCH (08:44)
[2023-10-29] MEDS: SODIUM CHLORIDE 0.9% 1,000 ML IV SCH (09:08)
--- NOTE | 2023-10-29 14:44 | Hospitalist Progress Note ---
Date of Service October 29, 2023 Assessment & Plan (1) Acute on chronic pancreatitis: Plan: This is a 58 y/o female with chronic pancreatitis, prior gastric bypass, post- gastric surgery syndrome, hx recurrent PE, on chronic AC with warfarin, GERD, chronic constipation, anxiety/mood disorder, chronic migraines, and other history as outlined who presents with upper abdominal pain that started the morning of arrival. This pain felt similar to prior episodes of acute flare of chronic pancreatitis but did not respond to oral medications at home, have been difficult to manage with IV medications in the ED so she was referred for admission. Work-up in the ED showed a normal WBC count, normal bilirubin, mildly elevated lipase and AST/ALT/alk phos. - Liquid diet today, advance once requiring less frequent pain meds doses. - Pain control, anti-emetics prn - Labs in the AM - CBC, CMP - Hold off on inpatient GI consult for now since pt already follows with [facility] - will need to keep outpatient appointment to consider additional workup such as repeat EUS - c/w IVF. - Pt reports better pain control overall (2) Elevated LFTs: Plan: Chronic, liver biopsy in 2019 with minimal findings, outpatient serologic work- up was negative Keep outpatient GI follow-up Trend LFTs. (3) History of pulmonary embolism: Plan: INR today is supratherapeutic at 4.2 Hold warfarin for now - last dose 5/6. Daily INR ordered (4) Migraine headache: Plan: Pt with history of chronic migraines - notes CRESPO over the weekend preceding today's symptoms. Pt's last dose of Emgality was two months ago due to issues obtaining medication. Continue outpatient regimen (5) Depression with anxiety: Plan: Chronic, stable Continue chronic medications Plan Code Status: full code DVT prophylaxis: on warfarin but INR supratherapeutic so currently on hold Dispo: med/surg Admission and Anticipated Discharge Date Admission Date: October 28, 2023 Subjective Patient was seen and examined at bedside. Patient was lying in bed, on room air, NAD, resting comfortably. Patient reports overall abdominal pain getting better but is still requiring multiple pain meds doses Patient reports tolerating clear liquid diet. Will continue with IV fluid. Patient denies any febrile illness or cough or chest pain or headache or dizziness. Physical Exam Physical Exam: GENERAL: Alert and oriented x3. NAD, on RA. HEENT: No pallor, no icterus. Pupils equal, round and reactive to light. Oral mucosa moist. NECK: No JVD, no neck masses. HEART: S1 and S2 heard. Regular rate and rhythm. No murmur, no gallop. RESPIRATORY SYSTEM: Normal AP diameter. No accessory muscle use. No wheezing, no crackles. ABDOMEN: Soft, bowel sounds present, epigastric tender, no distention. CENTRAL NERVOUS SYSTEM: No facial droop. Speech is clear. Obeys simple commands. Moves extremities. EXTREMITIES: No edema, no erythema seen. Results & Data Results & Data Vital Signs (Past 12 Hours) Vital Signs Temp Pulse Resp BP Pulse Ox O2 Del Method 10/29/23 07:05 36.7 C 74 18 112/71 91 Room Air (4) Migraine headache Intractability: not intractable Migraine type: chronic migraine (15 or more days per month) without aura Status migrainosus presence: without status migrainosus Qualified Code(s): G43.709 - Chronic migraine without aura, not intractable, without status migrainosus
[2023-10-29] MEDS: KETOROLAC TROMETHAMINE 15 MG/ML VIAL IV PRN (14:59)
[2023-10-29] MEDS: oxyCODONE HCL IR 5 MG TAB (IMMEDIATE RELEASE) PO PRN (16:46)
[2023-10-30 08:25] LABS: Hematocrit (blood only) 39.8 % (37.0-47.0); Hemoglobin 12.8 g/dl (12.0-16.0); Mean Corpuscular Hemoglobin 28.8 pg (25.0-34.0); Mean Corpuscular Hgb Conc 32.2 g/dL (32.0-36.0); Mean Corpuscular Volume 89.4 fL (80.0-100.0); Mean Platelet Volume 10.2 fL (9.4-12.4); Platelet Count 366 K/uL (130-400); RDW Coefficient of Variation 17.5 % (11.5-14.5); RDW Standard Deviation 56.9 fL (36.4-46.3); Red Blood Count 4.45 M/uL (4.20-5.40); White Blood Count 6.65 K/ul (4.8-10.8)
[2023-10-30 08:29] LABS: INR 3.4 (0.9-1.1)
[2023-10-30 09:04] LABS: Albumin Globulin Ratio 1.2 (0.9-2); Albumin Level 3.5 gm/dl (3.4-5.0); BUN Creatinine Ratio 6.5 (10-20); Bilirubin,Total 0.6 mg/dl (0.2-1.0); Calcium 7.9 mg/dl (8.6-10.3); Est GFR (African American) 97.3 ml/min; Est GFR (Non-African American) 83.9 ml/min; Globulin 2.9 gm/dl (2.5-4.0); Magnesium 1.7 mg/dl (1.7-2.4); Phosphorus 2.4 mg/dl (2.5-4.9); Total Protein 6.4 gm/dl (6.0-8.3)
--- NOTE | 2023-10-30 17:24 | Hospitalist Progress Note ---
Date of Service October 30, 2023 Assessment & Plan (1) Acute on chronic pancreatitis: Plan: This is a 58 y/o female with chronic pancreatitis, prior gastric bypass, post- gastric surgery syndrome, hx recurrent PE, on chronic AC with warfarin, GERD, chronic constipation, anxiety/mood disorder, chronic migraines, and other history as outlined who presents with upper abdominal pain that started the morning of arrival. This pain felt similar to prior episodes of acute flare of chronic pancreatitis but did not respond to oral medications at home, have been difficult to manage with IV medications in the ED so she was referred for admission. Work-up in the ED showed a normal WBC count, normal bilirubin, mildly elevated lipase and AST/ALT/alk phos. Advance diet to low-fat diet Continue pain medication with oxycodone, as needed Dilaudid Will obtain CT abdomen and pelvis to evaluate for acute on chronic pancreatitis (2) Elevated LFTs: Plan: Chronic, liver biopsy in 2019 with minimal findings, outpatient serologic work- up was negative Keep outpatient GI follow-up Mild improvement in the liver enzymes noted (3) History of pulmonary embolism: Plan: INR supratherapeutic Hold warfarin for now - last dose 10/27. Daily INR ordered (4) Migraine headache: Plan: Pt with history of chronic migraines - notes CRESPO over the weekend preceding today's symptoms. Pt's last dose of Emgality was two months ago due to issues obtaining medication. Continue outpatient regimen (5) Depression with anxiety: Plan: Chronic, stable Continue chronic medications Plan Code Status: full code DVT prophylaxis: on warfarin but INR supratherapeutic so currently on hold Dispo: med/surg Please note the above document was generated using voice recognition software. It may contain grammatical, syntax or spelling errors. Any formal questions or concerns about the content, text or information contained within the body of this dictation should be directly addressed to the provider for clarification Admission and Anticipated Discharge Date Admission Date: October 28, 2023 Subjective Patient seen and examined at bedside. She continues to report abdominal pain and is requiring pain medication Vital signs stable; low-fat diet is started No significant events overnight Review of Systems Review of Systems: All systems reviewed & are unremarkable except as noted in Subjective Physical Exam Physical Exam: Constitutional: Alert oriented x 3; not in distress Respiratory: normal respiratory effort, lungs clear to auscultation, no wheeze, rales, rhonchi. Normal insp/exp effort, no accessory muscle use Cardiovascular: RRR, no murmur, no edema Vessels: no JVD or carotid bruit Chest: normal inspection of chest Abdomen: Tenderness present in epigastric region Skin: no rashes, warm and dry normal turgor Neurologic: PERRL, EOMI, accommodation nl, no face palsy, no dysarthria CN's II- XI intact bilaterally and moves all extremities Psychiatric: A+Ox3, euthymic affect Results & Data Results & Data Vital Signs (Past 12 Hours) Vital Signs Temp Pulse Resp BP BP Pulse Ox O2 Del Method 10/30/23 15:34 36.3 C L 70 18 134/84 95 Room Air 10/30/23 07:20 36.6 C 72 16 127/78 90 Room Air (4) Migraine headache Intractability: not intractable Migraine type: chronic migraine (15 or more days per month) without aura Status migrainosus presence: without status migrainosus Qualified Code(s): G43.709 - Chronic migraine without aura, not intractable, without status migrainosus
[2023-10-30] MEDS: OPTIRAY 320 100ml IV ONE (18:35)
--- NOTE | 2023-10-30 19:09 | CT Scan Report ---
Exam(s): CT ABDOMEN + PELVIS With Contrast IV Amt: 93 ml optiray 320 EXAM: CT Abdomen and Pelvis With Intravenous Contrast CLINICAL HISTORY: Reason for exam: Concern for acute on chronic pancreatitis. TECHNIQUE: Axial computed tomography images of the abdomen and pelvis with intravenous contrast. CTDI is 28.12 mGy and DLP is 1576.63 mGy-cm. Automated exposure control was utilized for the study. A dose lowering technique was utilized adhering to the principles of ALARA. CONTRAST: Patient received 93 ml optiray 320 of IV contrast COMPARISON: CT abdomen pelvis 09/01/2023 FINDINGS: ABDOMEN: Liver: Unremarkable. Gallbladder and bile ducts: Status post cholecystectomy. Pancreas: No CT evidence of acute pancreatitis. Spleen: Status post splenectomy. Adrenals: Unremarkable. Kidneys and ureters: Unremarkable. No obstructing stones. No hydronephrosis. Stomach and bowel: Status post gastric bypass. No acute abnormality identified along the GI tract. PELVIS: Appendix: No findings to suggest acute appendicitis. Bladder: Unremarkable. Reproductive: Status post hysterectomy. ABDOMEN and PELVIS: Intraperitoneal space: Unremarkable. No free air. No significant fluid collection. Bones/joints: No acute fracture. Soft tissues: Unremarkable. Vasculature: Unremarkable. Lymph nodes: Unremarkable. Other findings: Elevated right hemidiaphragm is unchanged. IMPRESSION: No CT evidence of acute pancreatitis. Note that mild pancreatitis can be CT occult. Correlate with lipase. Electronically signed by: Kristian Russ MD 10/30/23 19:08 PM
[2023-10-31 06:23] LABS: Prothrombin Time 20.5 Seconds (9.0-12.0)
[2023-10-31 06:51] LABS: Albumin Globulin Ratio 1.2 (0.9-2); Albumin Level 3.3 gm/dl (3.4-5.0); BUN Creatinine Ratio 12.5 (10-20); Bilirubin,Total 0.5 mg/dl (0.2-1.0); Creatinine Clr Calc Pharmacy 87.5 ml/min; Est GFR (African American) 82.8 ml/min; Est GFR (Non-African American) 71.4 ml/min; Globulin 2.7 gm/dl (2.5-4.0); Potassium 4.2 mmol/L (3.5-5.1)
--- NOTE | 2023-10-31 16:24 | Discharge Summary ---
Date of Service October 31, 2023 Admission HPI Per Admitting Provider This is a 58 y/o female with chronic pancreatitis, prior gastric bypass, post- gastric surgery syndrome, hx recurrent PE, on chronic AC with warfarin, GERD, chronic constipation, anxiety/mood disorder, chronic migraines, and other history as outlined below who presents with upper abdominal pain that started this morning. Pt was recently admitted to this facility 08/31-09/07/23 with acute on chronic pancreatitis, which was managed conservatively. She was seen by GI during that admission who recommended an MRCP. 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 The possibility of PD stent placement was discussed with GI but this was not recommended due to pts anatomy. After discharge, pt required the oxycodone to control the pain for another 2-3 days but then seemed to improve back to baseline. However, since then, she has continued to have sporadic episodes of pain similar to prior pancreatitis. When she gets this pain, she will try lying down, going to a liquid diet, and if needed, taking an oxycodone, which seems to have manage these episodes at home. None lasted more than a few hours. This morning, she woke up feeling at her baseline, ate breakfast of cereal and milk, then ten minutes later had the abrupt onset of upper abdominal pain similar to prior flares of pancreatitis. She had associated nausea but no vomiting. She tried taking an oxycodone and a Zofran but symptoms did not improve so patient came to the ED for evaluation. Since being in the ED, her pain has been somewhat difficult to control with IV Dilaudid so she was referred for admission. She describes the pain as deep, not sharp, radiates to her back. She does not having a headache all weekend for which she took metoclopramide and Relpax. Her last BM was this AM - soft, no melena or hematochezia. Admission Exam Per Admitting Provider General: awake, alert, NAD but appears uncomfortable with movement Eyes: no scleral icterus Mouth: moist oral mucosa Neck: supple, trachea midline Heart: RRR, no M/G/R Lungs: diminished BS throughout but limited inspiratory effort (due to pain with deep breathing) Abdomen: soft, +BS, tympanic to percussion, mild to moderate upper abdominal tenderness - worse epigastric/LUQ area Extremities: no pedal edema, distal pulses intact and equal Skin: no jaundice, no rashes noted Neurologic: Ox3, no confusion, no dysarthria, moving all extremities Principal Diagnosis Acute on chronic pancreatitis Discharge Exam Constitutional: Alert oriented x 3; not in distress Respiratory: normal respiratory effort, lungs clear to auscultation, no wheeze, rales, rhonchi. Normal insp/exp effort, no accessory muscle use Cardiovascular: RRR, no murmur, no edema Vessels: no JVD or carotid bruit Chest: normal inspection of chest Abdomen: minimal tenderness on epigastric area Skin: no rashes, warm and dry normal turgor Neurologic: PERRL, EOMI, accommodation nl, no face palsy, no dysarthria CN's II- XI intact bilaterally and moves all extremities Psychiatric: A+Ox3, euthymic affect Discharge Data Allergies Allergy/AdvReac Type Severity Reaction Status Date / Time Sulfa (Sulfonamide Allergy Intermediate Hives Verified 09/01/23 20:13 Antibiotics) latex Allergy Mild Rash Verified 09/01/23 20:13 ciprofloxacin [From Cipro] AdvReac Intermediate Vomiting Verified 09/01/23 20:13 morphine AdvReac Intermediate Hypotension Verified 09/01/23 20:13 Consultations 10/28/23 09:03 ED Decision to Admit Stat Ordered Studies 10/30/23 17:18 CT Abd and Pelvis [CT abd pelvis IV con only] Urgent Hospital Course (1) Acute on chronic pancreatitis: This is a 58 y/o female with chronic pancreatitis, prior gastric bypass, post- gastric surgery syndrome, hx recurrent PE, on chronic AC with warfarin, GERD, chronic constipation, anxiety/mood disorder, chronic migraines, and other history as outlined who presents with upper abdominal pain that started the morning of arrival. This pain felt similar to prior episodes of acute flare of chronic pancreatitis but did not respond to oral medications at home, have been difficult to manage with IV medications in the ED so she was referred for admission. Work-up in the ED showed a normal WBC count, normal bilirubin, mildly elevated lipase and AST/ALT/alk phos. CT abdomen pelvis did not show any acute finding Patient was admitted to medical floor; was started on IV hydration, pain medication, clear liquid diet which was gradually advanced. Patient responded to treatment with improvement in pain. She was discharged home with instruction to follow-up with PCP and obtain pain management referral (2) Elevated LFTs: Chronic, liver biopsy in 2019 with minimal findings, outpatient serologic work- up was negative Keep outpatient GI follow-up Mild improvement in the liver enzymes noted during hospitalization Follow-up with PCP and GI as outpatient Please note the above document was generated using voice recognition software. It may contain grammatical, syntax or spelling errors. Any formal questions or concerns about the content, text or information contained within the body of this dictation should be directly addressed to the provider for clarification Total Time Total Time Spent Total Time Spent (In Minutes): 45 Total Time Includes: Examination of the Patient, Discharge Planning, Medication Reconciliation, Communication With Other Providers and Other Discharge Plan Discharge Items Patient Disposition: Home - Self-Care Reason For Visit: PANCREATITIS ATTACK Discharge Diagnosis: Acute on chronic pancreatitis Activity: Resume your previous activity Non-emergency contact: Primary Care Provider Call non-emergency contact if: you have any medication questions and your symptoms worsen Follow-up/Referrals: Jessee Wisdom MD [Primary Care Provider] - (Date & Time 11/08/2023 10:00 AM Provider Jessee Wisdom MD Department Merged With [facility] ) Diet: Regular Addtl Attending Provider Instructions: You were admitted to the hospital on acute on chronic pancreatitis. You are treated with IV fluids and pain medication during the hospitalization. Please continue to eat low-fat diet. You are prescribed oxycodone if you have severe pain. An appointment with your primary care doctor will be set up for sometime next week. Please obtain referral for pain management. Pending Studies at Discharge: No Stand-Alone Forms: [facility] [employer], Smoking Cessation Medications and DC Order Prescriptions: New oxycodone 5 mg capsule 5 mg PO Q6H PRN (Reason: pain) Qty: 15 0RF Continued duloxetine 60 mg capsule,delayed release(DR/EC) 60 mg PO DAILY Ocuvite Adult 50 Plus 250 mg (90 mg-160 mg) Capsule 1 cap PO QAM oxycodone 5 mg tablet 5 mg PO Q8H PRN (Reason: pain) polyethylene glycol 3350 [Miralax] 17 gram Powder In Packet 17 g PO BID tizanidine 4 mg tablet 12 mg PO HS amitriptyline 50 mg tablet 50 mg PO HS metoclopramide HCl 5 mg tablet 5 - 10 mg PO DIRECTED Rx Instructions: Take up to 3days week. buspirone 10 mg tablet 10 mg PO AMPM warfarin 5 mg tablet 2.5 mg PO 4XWK warfarin 5 mg tablet 5 mg PO MOWEFR omeprazole 20 mg capsule,delayed release(DR/EC) 20 mg PO BID furosemide 20 mg tablet 20 mg PO QAM ondansetron 4 mg tablet,disintegrating 4 mg translingual Q8 PRN (Reason: Nausea) fluticasone propionate 50 mcg/actuation spray,suspension 2 spray INTRANASAL QAM eletriptan [Relpax] 40 mg Tablet 0 mg PO .COMPLEX Rx Instructions: take1/2 to 1 tab at onset of headache; if no relief, may repeat 1 tab after at least 2 hrs; max = 2 tabs/24 hrs bupropion HCl 300 mg tablet extended release 24 hr 300 mg PO QAM zolpidem 12.5 mg tablet,ext release multiphase 12.5 mg PO HS calcium carbonate-vitamin D3 [Calcium 600 + D(3)] 600 mg-10 mcg (400 unit) Tablet 1 tab PO BID Linzess 290 mcg capsule 290 mcg PO QAM Emgality Pen 120 mg/mL pen injector 240 mg SUBCUT .MONTH Discharge Orders: Discharge Order (Routine); Ordered 10/31/23 Ordered By: Timmy Robertson Admission Data Admit Date/Time: 10/28/23 12:21 Attending Provider: Timmy Robertson Admit Provider: Leena Bauer Primary Care Provider: Jessee Wisdom Other Providers: Leena Bauer
[2023-10-31] MEDS: WARFARIN SOD 2.5 MG TAB PO SCH (16:41)
[2023-11-01] MEDS ORDERED: WARFARIN SOD 5 MG TAB PO SCH (16:00)
== END 2023-10-31 17:45 | disposition home or self-care (01) | DRG 440 ==
LOC: ED 06:25 → 3W 12:13 → SUATTDRO 12:21

== ENCOUNTER 2025-05-07 12:51 | Inpatient (IN) ==
[2025-05-07 14:20] LABS: Hematocrit (blood only) 52.3 % (37.0-47.0); Hemoglobin 17.6 g/dL (12.0-16.0); Immature Granulocytes # (auto) 0.04 K/uL (0.01-0.20); Immature Granulocytes % (auto) 0.3 %; Mean Corpuscular Hemoglobin 30.6 pg (25.0-34.0); Mean Corpuscular Volume 91.0 fL (80.0-100.0); Platelet Count 434 K/uL (130-400); RDW Standard Deviation 49.6 fL (36.4-46.3); Red Blood Count 5.75 M/uL (4.20-5.40); White Blood Count 13.16 K/ul (4.8-10.8)
[2025-05-07 14:36] LABS: Alanine Aminotransferase 64.0 U/L (7-52); Albumin Globulin Ratio 1.0 (0.9-2); Albumin Level 4.5 gm/dl (3.4-5.0); Alkaline Phosphatase 202.0 U/L (34-104); Anion Gap 7.0 (3-11); Bilirubin,Total 0.5 mg/dl (0.2-1.0); Blood Urea Nitrogen 17.0 mg/dl (6-23); Calcium 10.2 mg/dl (8.6-10.3); Carbon Dioxide 28.0 mmol/L (21-32); Chloride 103.0 mmol/L (98-107); Creatinine Clr Calc Pharmacy 77.2 ml/min; Globulin 4.7 gm/dl (2.5-4.0); Glucose 98.0 mg/dl (70-99(Fasting)); Lipase 54.0 U/L (11-82); Potassium 3.5 mmol/L (3.5-5.1); Sodium 138.0 mmol/L (136-145); Total Protein 9.2 gm/dl (6.0-8.3)
[2025-05-07] MEDS: SODIUM CHLORIDE 0.9% 1,000 ML IV ONE ×2 (15:23→17:13)
[2025-05-07] MEDS: diphenhydrAMINE 50 MG/ML VIAL IV STA (15:26)
[2025-05-07] MEDS: ONDANSETRON INJ 2 MG/ML 2 ML VIAL IV STA (15:26)
[2025-05-07] MEDS: HYDROmorphone INJ 1 MG/ML SYRINGE IV STA ×2 (15:26→17:13)
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
[2025-05-07] MEDS: OPTIRAY 320 100ml IV ONE (16:23)
--- NOTE | 2025-05-07 17:02 | CT Scan Report ---
Clinical History: Left upper quadrant pain Technique: Axial computed tomography images were obtained of the abdomen and pelvis after the administration of intravenous contrast. Comparison is made to the prior CT dated 04/27/2025. Findings: The liver is overall of normal size, attenuation, and contour with no sign of cirrhosis or significant fatty infiltration. There is an unchanged 1.4 cm low attenuation mass in the posterior right hepatic lobe. The portal vein is patent. The gallbladder has been removed. No bile duct dilatation is noted. The spleen has been removed. There are unchanged calcifications in the distal pancreatic body and pancreatic tail, likely due to chronic pancreatitis. There is no sign of acute pancreatitis. There is an unchanged 1.2 cm right adrenal nodule, likely a benign adenoma. The left adrenal gland appears normal No definite renal or proximal ureteral calculi are seen on this contrast-enhanced study. There is no hydronephrosis or perinephric stranding. No renal mass lesion is identified. There is an unchanged small 2-3 mm right renal cyst The aorta is of normal caliber. There are small subcentimeter retroperitoneal para-aortic lymph nodes. No overt abdominal adenopathy is seen. There has been partial gastrectomy. There is no sign of small bowel obstruction. There is wall thickening of the splenic flexure of the colon with adjacent soft tissue stranding. There is a suspected small extraluminal collection of fluid and air in this area, difficult to differentiate from a redundant bowel loop. This measures approximately 2 cm and could represent an abscess or contained perforation. No generalized free intraperitoneal fluid or air is identified. No distal ureteral or bladder calculi are seen. No bladder mass lesion is evident. The iliac arteries are of normal caliber. No pelvic adenopathy is noted. The uterus has been removed There is elevation of right hemidiaphragm. There is bilateral lung base atelectasis. Mild thoracolumbar degenerative disc disease is seen. No fracture is identified. No focal osseous lesion is seen Impression: 1. Wall thickening of the splenic flexure of the colon, which could be due to infection or inflammatory bowel disease. Colon carcinoma is also possible 2. Suspected 2 cm extraluminal collection of fluid and air adjacent to the abnormal colon, which could represent an abscess or contained perforation. Surgical consultation may be prudent 3. Unchanged small liver mass, indeterminate in nature but likely a benign hemangioma 4. Elevation of the right hemidiaphragm and bilateral lung base atelectasis 5. Unchanged chronic pancreatitis 6. Small right renal cyst 7. Prior partial gastrectomy, cholecystectomy, splenectomy, and hysterectomy 8. Unchanged small right adrenal nodule, likely a benign adenoma ACT 112: Positive. There are findings on this exam that require communication between the performing entity and the patient following Patient Test Result Information Act ([place] ACT 112) guidelines. Electronically signed by Jeovany Zapata 05-07-2025 5:02 PM
[2025-05-07] MEDS ORDERED: VANCOMYCIN CONSULT ACTIVE PRN (17:12)
[2025-05-07 17:17] LABS: INR 3.7 (0.9-1.1); Partial Thromboplastin Time 33 Seconds (21-31); Prothrombin Time 36.3 Seconds (9.0-12.0)
[2025-05-07 17:35] LABS: Appearance Urine Clear (Clear); Glucose Urine UA Negative (Negative)
[2025-05-07] MEDS: PIPERACILLIN/TAZOBACTAM 4.5 GM/100 ML BAG IV ONE (17:35)
[2025-05-07] MEDS ORDERED: MAGNESIUM HYDROXIDE SUSP 30 ML UDC PO PRN (18:22)
[2025-05-07] MEDS ORDERED: ALUMINUM/MAGNESIUM SUSP 30 ML UDC PO PRN (18:22)
[2025-05-07] MEDS: VANCOMYCIN HCL 2,250 MG in SODIUM CHLORIDE 0.9% 500 ML IV ONE (18:29)
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
[2025-05-07] MEDS: ACETAMINOPHEN 325 MG TAB PO PRN (19:49)
[2025-05-07] MEDS: HYDROmorphone INJ 0.5 MG/0.5 ML SYR IV PRN (21:25)
[2025-05-07] MEDS: AMITRIPTYLINE HCL 50 MG TAB PO SCH (22:13)
[2025-05-07] MEDS: busPIRone 5 MG TAB PO SCH (22:13)
[2025-05-07] MEDS: POLYETHYLENE (MIRALAX) 17 GM PACK PO SCH (22:13)
[2025-05-07] MEDS: ZOLPIDEM TARTRATE 5 MG TAB PO SCH (22:14)
[2025-05-07] MEDS: CALCIUM 600MG + VIT D 400 IU TAB PO SCH (22:15)
[2025-05-07] MEDS: SODIUM CHLORIDE 0.9% 1,000 ML IV SCH (22:16)
[2025-05-07] MEDS: PIPERACILLIN/TAZOBACTAM 4.5 GM/100 ML BAG IV SCH (22:47)
[2025-05-07] MEDS: ONDANSETRON 4 MG OD TAB SL PRN (22:52)
[2025-05-08] MEDS: VANCOMYCIN HCL / NSS 1,000 MG/270 ML BAG IV SCH (06:03)
[2025-05-08 06:39] LABS: Hematocrit (blood only) 46.7 % (37.0-47.0); Hemoglobin 15.4 g/dL (12.0-16.0); Mean Corpuscular Hemoglobin 30.1 pg (25.0-34.0); Mean Corpuscular Volume 91.4 fL (80.0-100.0); Platelet Count 385 K/uL (130-400); RDW Standard Deviation 50.3 fL (36.4-46.3); Red Blood Count 5.11 M/uL (4.20-5.40); White Blood Count 8.01 K/ul (4.8-10.8)
[2025-05-08 06:59] LABS: INR 2.3 (0.9-1.1); Prothrombin Time 23.5 Seconds (9.0-12.0)
[2025-05-08 07:14] LABS: Alanine Aminotransferase 188.0 U/L (7-52); Albumin Level 3.9 gm/dl (3.4-5.0); Alkaline Phosphatase 282.0 U/L (34-104); Anion Gap 8.0 (3-11); Bilirubin,Total 1.0 mg/dl (0.2-1.0); Blood Urea Nitrogen 11.0 mg/dl (6-23); Calcium 9.2 mg/dl (8.6-10.3); Carbon Dioxide 25.0 mmol/L (21-32); Chloride 108.0 mmol/L (98-107); Creatinine Clr Calc Pharmacy 85.1 ml/min; Glucose 73.0 mg/dl (70-99(Fasting)); Magnesium 1.8 mg/dl (1.7-2.4); Potassium 3.6 mmol/L (3.5-5.1); Sodium 141.0 mmol/L (136-145); Total Protein 7.8 gm/dl (6.0-8.3)
[2025-05-08] MEDS: HYDROmorphone INJ 0.5 MG/0.5 ML SYR IV PRN (08:11)
--- NOTE | 2025-05-08 08:35 | Electrocardiogram Report ---
Test Reason : Blood Pressure : */* mmHG Vent. Rate : 78 BPM Atrial Rate : 78 BPM P-R Int : 176 ms QRS Dur : 102 ms QT Int : 400 ms P-R-T Axes : 47 -17 16 degrees QTcB Int : 456 ms Normal sinus rhythm Minimal voltage criteria for LVH, may be normal variant ( Augie product ) Nonspecific ST abnormality Borderline ECG When compared with ECG of 27-Apr-2025 11:47, No significant change was found Confirmed by Chris Fernández ([id number]) on 05/08/2025 8:34:49 AM Referred By: REFERRED SELF Confirmed By: Chris Fernández
[2025-05-08] MEDS ORDERED: NON-FORMULARY MEDICATION (Mv-Mn-Om3-Dha-Epa-Fish-Lut-Zea [Ocuvite Adult 50 Plus] 250 mg (9 PO SCH (09:00)
[2025-05-08] MEDS: METOPROLOL SUCC 25MG EXT REL TAB PO SCH (10:47)
[2025-05-08] MEDS: CEROVITE ADV FORMULA TAB PO SCH (10:49)
[2025-05-08] MEDS: FLUTICASONE PROPIONATE NA SPR 16 GM BTL SCH (10:49)
[2025-05-08] MEDS: LUBIPROSTONE 8 MCG CAP PO SCH (11:13)
[2025-05-08 11:28] LABS: Hep B Surface Ag with confirm Negative (Negative)
[2025-05-08 11:33] LABS: Hep C Ab Rflx HepCQuant RNA Negative (Negative)
--- NOTE | 2025-05-08 11:40 | Surgery Progress Note ---
Date of Service May 08, 2025 Assessment & Plan (1) Abdominal pain: Plan: Left upper quadrant abdominal pain. Do not feel CT my interpretation represents perforation or abscess. 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 CT scan yesterday with concern for possible contained perforation or abscess, though could also represent redundant bowel loop. She has some tenderness in the left upper quadrant, otherwise no issues. Physical Exam Constitutional: WD/WN, vitals as above + obese Respiratory: normal respiratory effort, lungs clear to auscultation Cardiovascular: RRR, no murmur, no edema Gastrointestinal (Abdomen): Percussion/Palpation: + abdomen tender (Mild tenderness to palpation left upper) and abdomen soft; no guarding and abdomen not rigid Results & Data Vital Signs (Past 12 Hours) Vital Signs Temp Pulse Resp BP Pulse Ox O2 Del Method 05/08/25 08:15 36.8 C 80 18 138/86 96 Room Air 05/08/25 02:57 36.6 C 69 18 99/67 L 93 Room Air Laboratory Results Laboratory Results - last 24 hr 05/07/25 05/07/25 05/07/25 14:03 16:03 17:17 WBC 13.16 H RBC 5.75 H Hgb 17.6 H Hct 52.3 H MCV 91.0 MCH 30.6 MCHC 33.7 RDW Std Deviation 49.6 H RDW Coeff of Mukul 15.0 H Plt Count 434 H MPV 10.5 Immature Gran % (Auto) 0.3 Neut % (Auto) 68.9 Lymph % (Auto) 19.5 Wilcox % (Auto) 9.5 Eos % (Auto) 1.1 Baso % (Auto) 0.7 Neut # (Auto) 9.07 H Lymph # (Auto) 2.57 Wilcox # (Auto) 1.25 H Eos # (Auto) 0.14 Baso # (Auto) 0.09 Immature Gran # (Auto) 0.04 PT 36.3 H INR 3.7 H APTT 33 H PTT Ratio 1.2 Sodium 138 Potassium 3.5 Chloride 103 Carbon Dioxide 28 Anion Gap 7 BUN 17 Creatinine 0.95 Est Cr Clr Drug Dosing 77.2 eGFR 67.74 BUN/Creatinine Ratio 17.9 Glucose 98 Calcium 10.2 Phosphorus Magnesium Total Bilirubin 0.5 Direct Bilirubin AST 65 H ALT 64 H Alkaline Phosphatase 202 H Troponin I High Sens 5.3 Total Protein 9.2 H Albumin 4.5 Globulin 4.7 H Albumin/Globulin Ratio 1.0 Lipase 54 Urine Color Yellow Urine Appearance Clear Urine pH 7.0 Ur Specific [place] 1.013 Urine Protein Negative Urine Glucose (UA) Negative Urine Ketones Negative Urine Blood Negative Urine Nitrite Negative Urine Bilirubin Negative Urine Urobilinogen Negative Ur Leukocyte Esterase Negative Urine Comment Hepatitis A IgM Ab Hep Bs Antigen Hep B Core IgM Ab Hepatitis C Ab Screen Hepatitis C Antibody 05/08/25 05:59 WBC 8.01 RBC 5.11 Hgb 15.4 Hct 46.7 MCV 91.4 MCH 30.1 MCHC 33.0 RDW Std Deviation 50.3 H RDW Coeff of Mukul 15.2 H Plt Count 385 MPV 10.7 Immature Gran % (Auto) Neut % (Auto) Lymph % (Auto) Wilcox % (Auto) Eos % (Auto) Baso % (Auto) Neut # (Auto) Lymph # (Auto) Wilcox # (Auto) Eos # (Auto) Baso # (Auto) Immature Gran # (Auto) PT 23.5 H INR 2.3 H APTT PTT Ratio Sodium 141 Potassium 3.6 Chloride 108 H Carbon Dioxide 25 Anion Gap 8 BUN 11 Creatinine 0.87 Est Cr Clr Drug Dosing 85.1 eGFR 75.28 BUN/Creatinine Ratio 12.6 Glucose 73 Calcium 9.2 Phosphorus 3.7 Magnesium 1.8 Total Bilirubin 1.0 D Direct Bilirubin 0.3 H AST 329 H ALT 188 H Alkaline Phosphatase 282 H Troponin I High Sens Total Protein 7.8 Albumin 3.9 Globulin Albumin/Globulin Ratio Lipase Urine Color Urine Appearance Urine pH Ur Specific [place] Urine Protein Urine Glucose (UA) Urine Ketones Urine Blood Urine Nitrite Urine Bilirubin Urine Urobilinogen Ur Leukocyte Esterase Urine Comment Hepatitis A IgM Ab Pending Hep Bs Antigen Negative Hep B Core IgM Ab Pending Hepatitis C Ab Screen Negative Hepatitis C Antibody Negative Diagnostic Findings CT scan from yesterday personally viewed and interpreted, do not feel that this represents a contained perforation or abscess, more likely redundant loop of bowel. Abdomen/Pelvis CT 11/14/25 14:44 Clinical History: Left upper quadrant pain Technique: Axial computed tomography images were obtained of the abdomen and pelvis after the administration of intravenous contrast. Comparison is made to the prior CT dated 04/27/2025. Findings: The liver is overall of normal size, attenuation, and contour with no sign of cirrhosis or significant fatty infiltration. There is an unchanged 1.4 cm low attenuation mass in the posterior right hepatic lobe. The portal vein is patent. The gallbladder has been removed. No bile duct dilatation is noted. The spleen has been removed. There are unchanged calcifications in the distal pancreatic body and pancreatic tail, likely due to chronic pancreatitis. There is no sign of acute pancreatitis. There is an unchanged 1.2 cm right adrenal nodule, likely a benign adenoma. The left adrenal gland appears normal No definite renal or proximal ureteral calculi are seen on this contrast-enhanced study. There is no hydronephrosis or perinephric stranding. No renal mass lesion is identified. There is an unchanged small 2-3 mm right renal cyst The aorta is of normal caliber. There are small subcentimeter retroperitoneal para-aortic lymph nodes. No overt abdominal adenopathy is seen. There has been partial gastrectomy. There is no sign of small bowel obstruction. There is wall thickening of the splenic flexure of the colon with adjacent soft tissue stranding. There is a suspected small extraluminal collection of fluid and air in this area, difficult to differentiate from a redundant bowel loop. This measures approximately 2 cm and could represent an abscess or contained perforation. No generalized free intraperitoneal fluid or air is identified. No distal ureteral or bladder calculi are seen. No bladder mass lesion is evident. The iliac arteries are of normal caliber. No pelvic adenopathy is noted. The uterus has been removed There is elevation of right hemidiaphragm. There is bilateral lung base atelectasis. Mild thoracolumbar degenerative disc disease is seen. No fracture is identified. No focal osseous lesion is seen Impression: 1. Wall thickening of the splenic flexure of the colon, which could be due to infection or inflammatory bowel disease. Colon carcinoma is also possible 2. Suspected 2 cm extraluminal collection of fluid and air adjacent to the abnormal colon, which could represent an abscess or contained perforation. Surgical consultation may be prudent 3. Unchanged small liver mass, indeterminate in nature but likely a benign hemangioma 4. Elevation of the right hemidiaphragm and bilateral lung base atelectasis 5. Unchanged chronic pancreatitis 6. Small right renal cyst 7. Prior partial gastrectomy, cholecystectomy, splenectomy, and hysterectomy 8. Unchanged small right adrenal nodule, likely a benign adenoma ACT 112: Positive. There are findings on this exam that require communication between the performing entity and the patient following Patient Test Result Information Act ([place] ACT 112) guidelines. Electronically signed by Jeovany Zapata 05-07-2025 5:02 PM PG Care Time/CCT Total # of Minutes Spent Total Time Spent with Patient: Total time spent is greater than 50% in coordination of care (as documented) at patient's floor/unit and/or counseling patient: Coding Level of Care Code 90273 SUB INP/OBS CARE 2/35MIN Diagnoses Abdominal pain R10.9
--- NOTE | 2025-05-08 12:10 | Pharmacy Report ---
Pharmacy PK ABX Note - Date of Service May 08, 2025 - Assessment and Plan Assessment 60 year old F receiving vancomycin and piperacillin/tazobactam for treatment of intra-abdominal infection. Pertinent microbiologic data includes: none. Day # 1 of antimicrobial therapy. Plan Vancomycin * Loading dose: 2250 mg IV x 1 (given 05/07 @1830) * Maintenance dose: 1000 mg IV every 12 hours * Regimen is predicted to achieve target AUC/JONAH of 400-600 mg/L.hr * Trough level ordered for: 05/09/25 @7566 Pharmacy will continue to follow and will adjust dose/frequency as necessary. Thank you. Pharmacy has transitioned to AUC monitoring for vancomycin. AUC/JONAH is the preferred PK/PD target and is associated with decreased risk of nephrotoxicity compared to traditional trough targets.
--- NOTE | 2025-05-08 13:40 | Hospitalist Progress Note ---
Date of Service May 08, 2025 Assessment & Plan (1) Acute upper abdominal pain: Plan Patient comes in with left upper quadrant pain since about 2 weeks associated with poor appetite, nausea, dry heaves. Patient does report loose stool for last 3 days and streak of blood in the wipe. Admission leukocytosis noted, admitting CTAP with wall thickening of the splenic flexure of the colon and suspected 2 cm fluid collection suggestive of abscess or contained perforation. Colitis Suspected abscess/contained perforation Small liver mass--likely benign hemangioma Small right renal cyst Small right adrenal nodule--likely benign adenoma --CT ABD:Wall thickening of the splenic flexure of the colon, which could be due to infection or inflammatory bowel disease. Colon carcinoma is also possible. Suspected 2 cm extraluminal collection of fluid and air adjacent to the abnormal colon, which could represent an abscess or contained perforation. Surgical consultation may be prudent. Unchanged small liver mass, indeterminate in nature but likely a benign hemangioma. Elevation of the right hemidiaphragm and bilateral lung base atelectasis. Unchanged chronic pancreatitis. Small right renal cyst. Prior partial gastrectomy, cholecystectomy, splenectomy, and hyste rectomy. Unchanged small right adrenal nodule, likely a benign adenoma -- Lipase 54 --CT with oral contrast pending --Stool studies pending N.p.o. for now Continue empiric IV Zosyn IV fluids, pain control as needed Surgery following Chronic Transaminitis Monitor LFTs Hepatitis panel pending Supratherapeutic INR History of PE Coumadin on hold INR: 3.7> 2.3 Monitor INR Other chronic conditions H/O bariatric surgery Chronic pain GERD Mood disorder Past tobacco use Continue home medications as able DVT Px: Therapeutic INR Code Status Full code Admission and Anticipated Discharge Date Admission Date: May 07, 2025 Subjective Patient is seen and examined at bedside States having generalized abdominal pain Reports nausea but no vomiting No diarrhea today Also denies any chest pain, dyspnea, dizziness Review of Systems Review of Systems: All systems reviewed & are unremarkable except as noted in Subjective Physical Exam Physical Exam: Physical Exam: Vitals signs as noted above General Appearance:Overweight, no apparent distress Head: normocephalic, Atraumatic Eyes: normal inspection, EOMI Neck: supple, Trachea midline Respiratory/Chest: Normal breath sounds, CTA, No accessory muscle use Cardiovascular: S1, S2, No murmur Abdomen/GI:Soft, generalized tender, Bowel sounds present, no guarding or rigidity Extremities/Musculoskeletal:normal inspection, no edema Neurologic/Psych:AAOX3, grossly no focal neurological deficits Skin: normal color, warm Results & Data Results & Data Vital Signs (Past 12 Hours) Vital Signs Temp Pulse Pulse Resp BP Pulse Ox O2 Del Method 05/08/25 12:42 36.8 C 70 16 117/78 93 Room Air 05/08/25 08:15 36.8 C 80 18 138/86 96 Room Air 05/08/25 08:00 73 05/08/25 02:57 36.6 C 69 18 99/67 L 93 Room Air Laboratory Results Short CBC 05/07/25 05/08/25 Range/Units 14:03 05:59 WBC 13.16 H 8.01 (4.8-10.8) K/ul Hgb 17.6 H 15.4 (12.0-16.0) g/dL Hct 52.3 H 46.7 (37.0-47.0) % Plt Count 434 H 385 (130-400) K/uL BMP 05/07/25 05/08/25 14:03 05:59 Sodium 138 141 Potassium 3.5 3.6 Chloride 103 108 H Carbon Dioxide 28 25 BUN 17 11 Creatinine 0.95 0.87 Glucose 98 73 Calcium 10.2 9.2 Liver Function 05/07/25 05/08/25 Range/Units 14:03 05:59 Total Bilirubin 0.5 1.0 D (0.2-1.0) mg/dl Direct Bilirubin 0.3 H (0-0.2) mg/dl AST 65 H 329 H (13-39) U/L ALT 64 H 188 H (7-52) U/L Alkaline Phosphatase 202 H 282 H (34-104) U/L Albumin 4.5 3.9 (3.4-5.0) gm/dl Urine 05/07/25 Range/Units 17:17 Urine Color Yellow Urine Appearance Clear (Clear) Urine pH 7.0 (4.5-7.5) Ur Specific [place] 1.013 (1.000-1.030) Urine Protein Negative (Negative) Urine Glucose (UA) Negative (Negative)
[2025-05-08] MEDS: OPTIRAY 320 100ml IV ONE (14:13)
[2025-05-08] MEDS: D5W AND 1/2NSS + 20MEQ KCL 20 MEQ/1,000 ML BAG IV SCH (14:37)
--- NOTE | 2025-05-08 14:59 | CT Scan Report ---
EXAMINATION: CT of the abdomen and pelvis performed after the administration of IV contrast. TECHNIQUE: Helical CT images from the lung bases through the symphysis pubis were obtained with contrast. Coronal and sagittal reformatted images were generated at a workstation for further assessment. Dose reduction techniques were achieved by using automatic exposure control and/or adjustment of mA and/or kV according to patient size and/or use of iterative reconstruction technique. HISTORY: Follow-up from previous CT. Evaluate for questionable abscess. COMPARISON: 05/07/2025 and 04/27/2025. FINDINGS: Regroover film demonstrates elevated right hemidiaphragm. This does not appear to be significantly changed. Nonspecific bowel gas pattern. Lung windows demonstrate slight increased bibasilar at least subsegmental atelectasis. Prominent right lower lobe peribronchial increased densities. Soft tissue windows demonstrate enteric contrast within the included distal esophagus. Normal gastric viscus is absent. Spleen is absent. Cholecystectomy changes. Poorly defined posterior right liver lobe hypodense nodule. This measures approximately 1.8 cm diameter. This not appreciably changed. Mild intrahepatic ductal dilatation. This appears to be stable. Several small sized pancreatic calcifications are noted. Prominent pancreatic duct at the level of the tail. This does not appear to be significantly changed. Small right adrenal gland nodule unchanged. Uterus is absent. Ovaries not identified. Radiopaque staple line small bowel left abdomen. Difficulty a simple appearing fluid collection at this level. This is unchanged. Question seroma. Enteric contrast extends to the level of the distal transverse colon. There appears to be eccentric short segmental wall thickening of the splenic flexure of the large bowel. Adjacent fat stranding is noted. This is best seen on image 40 of 80 on the coronal series and image 32 of 106 on the axial series. This is difficult to appreciate with certainty on most recent prior. This is not present on the April 27 exam. No discrete drainable fluid collections identified. This is difficult to separate from the tip of the pancreatic tail. At least moderate stool-filled large bowel. The appendix is within normal limits. Remaining solid and hollow organs of the abdomen and pelvis are within normal limits. No free air or free fluid. Bone windows demonstrate degenerative changes of the spine. No acute osseous process. IMPRESSION: 1. Somewhat eccentric short segmental wall thickening of the splenic flexure of the large bowel. This is new when compared to prior April 27 exam. No discrete drainable fluid collection or free air. Inflammatory or infectious segmental colitis favored. Ischemic process less likely. Etiology is uncertain. 2. Slight increasing bibasilar at least subsegmental atelectasis. Developing pneumonitis not excluded. 3. Remainder of the exam is stable. Please see above for details. Electronically signed by Ruben Ellison 05-08-2025 2:59 PM
[2025-05-08] MEDS: PROMETHAZINE 12.5 MG/50.5 ML BAG IV STA (19:51)
[2025-05-09 06:35] LABS: Hematocrit (blood only) 44.0 % (37.0-47.0); Hemoglobin 14.7 g/dL (12.0-16.0); Mean Corpuscular Hemoglobin 30.6 pg (25.0-34.0); Mean Corpuscular Volume 91.5 fL (80.0-100.0); Platelet Count 372 K/uL (130-400); RDW Standard Deviation 51.4 fL (36.4-46.3); Red Blood Count 4.81 M/uL (4.20-5.40); White Blood Count 10.66 K/ul (4.8-10.8)
[2025-05-09 06:45] LABS: Albumin Level 3.8 gm/dl (3.4-5.0); Anion Gap 8.0 (3-11); Bilirubin,Total 0.7 mg/dl (0.2-1.0); Calcium 9.3 mg/dl (8.6-10.3); Carbon Dioxide 23.0 mmol/L (21-32); Chloride 107.0 mmol/L (98-107); Potassium 4.0 mmol/L (3.5-5.1); Sodium 138.0 mmol/L (136-145)
[2025-05-09 06:48] LABS: INR 2.9 (0.9-1.1); Prothrombin Time 28.5 Seconds (9.0-12.0)
[2025-05-09 06:51] LABS: Alanine Aminotransferase 149.0 U/L (7-52); Albumin Globulin Ratio 1.0 (0.9-2); Alkaline Phosphatase 270.0 U/L (34-104); Blood Urea Nitrogen 6.0 mg/dl (6-23); Globulin 3.7 gm/dl (2.5-4.0); Glucose 82.0 mg/dl (70-99(Fasting)); Total Protein 7.5 gm/dl (6.0-8.3)
[2025-05-09 08:07] LABS: Cdiff Toxin B Gene (2yr or >) Negative Cdiff Gene (Neg)
[2025-05-09 08:37] LABS: Adenovirus F 40/41 PCR Not Detected (NotDetected); Campylobacter PCR Not Detected (NotDetected); Enteroaggregative E.coli(EAEC) Not Detected (NotDetected); Shiga-like Toxin E.coli (STEC) Not Detected (NotDetected); Vibrio species PCR Not Detected (NotDetected)
[2025-05-09] MEDS: VANCOMYCIN LEVEL ONE (08:39)
[2025-05-09 09:39] LABS: Creatinine Clr Calc Pharmacy 102.8 ml/min
--- NOTE | 2025-05-09 10:21 | Surgery Progress Note ---
Date of Service May 09, 2025 Assessment & Plan (1) Colitis: Plan: Colitis of the splenic flexure, unknown etiology, no evidence of perforation. No surgical intervention at this time Continue IV antibiotics Consider stool cultures, will likely need outpatient colonoscopy after inflammation dies down Start clear liquids Surgical follow, call questions or concerns Admission and Anticipated Discharge Date Admission Date: May 07, 2025 Subjective Admitted with colitis, possible perforation. Feeling better than yesterday. CT scan from yesterday showed colitis with no merna perforation or abscess, contrast did not traverse the area of concern. Physical Exam Constitutional: WD/WN, vitals as above Respiratory: normal respiratory effort, lungs clear to auscultation Cardiovascular: RRR, no murmur, no edema Gastrointestinal (Abdomen): Inspection/Auscultation: + abdominal surgical scar Percussion/Palpation: + abdomen tender (Mild left upper quadrant tenderness to palpation, no guarding) and abdomen soft; no guarding and abdomen not rigid Results & Data Vital Signs (Past 12 Hours) Vital Signs Temp Pulse Pulse Resp BP Pulse Ox O2 Del Method 05/09/25 08:10 36.7 C 82 17 125/77 94 Room Air 05/09/25 07:07 88 05/08/25 22:51 36.4 C L 59 L 20 102/68 91 Room Air Laboratory Results Laboratory Results - last 24 hr 05/08/25 05/08/25 05/08/25 05:59 12:29 18:09 WBC RBC Hgb Hct MCV MCH MCHC RDW Std Deviation RDW Coeff of Mukul Plt Count MPV PT INR Sodium Potassium Chloride Carbon Dioxide Anion Gap BUN Creatinine Est Cr Clr Drug Dosing eGFR BUN/Creatinine Ratio Glucose POC Glucose 93 127 H Calcium Total Bilirubin AST ALT Alkaline Phosphatase Total Protein Albumin Globulin Albumin/Globulin Ratio Stl C. cayetanensis PCR Stool Rotavirus A PCR Stl Adenov F 40/41 PCR Stool Astrovirus (PCR) Stool Campylobacter PCR Stl C. diff Tox B Gene Stl C. diff [id number] Stool Cryptosporidium PCR Stl E.coli Shiga Tox PCR Stl Enterotoxigenic E PCR Stool EPEC (PCR) Stool EAEC (PCR) Stl E. histolytica PCR Stool Giardia Lamblia PCR Stool Salmonella PCR Stool Sapovirus (PCR) Stl P. shigelloides PCR Stl Shigella/EIEC PCR St Y.enterocolitica PCR Stool Vibrio (PCR) Stl Vibrio cholerae PCR Stl Norovirus GI/GII PCR Random Vancomycin Hep Bs Antigen Negative Hepatitis C Ab Screen Negative Hepatitis C Antibody Negative 05/09/25 05/09/25 05/09/25 00:00 05:38 05:58 WBC 10.66 RBC 4.81 Hgb 14.7 Hct 44.0 MCV 91.5 MCH 30.6 MCHC 33.4 RDW Std Deviation 51.4 H RDW Coeff of Mukul 15.3 H Plt Count 372 MPV 10.9 PT 28.5 H INR 2.9 H Sodium 138 Potassium 4.0 Chloride 107 Carbon Dioxide 23 Anion Gap 8 BUN 6 Creatinine 0.72 Est Cr Clr Drug Dosing 102.8 eGFR 94.48 BUN/Creatinine Ratio 8.3 L Glucose 82 POC Glucose 139 H Calcium 9.3 Total Bilirubin 0.7 AST 165 H ALT 149 H Alkaline Phosphatase 270 H Total Protein 7.5 Albumin 3.8 Globulin 3.7 Albumin/Globulin Ratio 1.0 Stl C. cayetanensis PCR Stool Rotavirus A PCR Stl Adenov F 40/41 PCR Stool Astrovirus (PCR) Stool Campylobacter PCR Stl C. diff Tox B Gene Stl C. diff [id number] Stool Cryptosporidium PCR Stl E.coli Shiga Tox PCR Stl Enterotoxigenic E PCR Stool EPEC (PCR) Stool EAEC (PCR) Stl E. histolytica PCR Stool Giardia Lamblia PCR Stool Salmonella PCR Stool Sapovirus (PCR) Stl P. shigelloides PCR Stl Shigella/EIEC PCR St Y.enterocolitica PCR Stool Vibrio (PCR) Stl Vibrio cholerae PCR Stl Norovirus GI/GII PCR Random Vancomycin 8.7 L Hep Bs Antigen Hepatitis C Ab Screen Hepatitis C Antibody 05/09/25 05/09/25 06:08 Unknown WBC RBC Hgb Hct MCV MCH MCHC RDW Std Deviation RDW Coeff of Mukul Plt Count MPV PT INR Sodium Potassium Chloride Carbon Dioxide Anion Gap BUN Creatinine Est Cr Clr Drug Dosing eGFR BUN/Creatinine Ratio Glucose POC Glucose 71 Calcium Total Bilirubin AST ALT Alkaline Phosphatase Total Protein Albumin Globulin Albumin/Globulin Ratio Stl C. cayetanensis PCR Not Detected Stool Rotavirus A PCR Not Detected Stl Adenov F 40/41 PCR Not Detected Stool Astrovirus (PCR) Not Detected Stool Campylobacter PCR Not Detected Stl C. diff Tox B Gene Negative Cdiff Gene Stl C. diff [id number] NEGATIVE Stool Cryptosporidium PCR Not Detected Stl E.coli Shiga Tox PCR Not Detected Stl Enterotoxigenic E PCR Not Detected Stool EPEC (PCR) Not Detected Stool EAEC (PCR) Not Detected Stl E. histolytica PCR Not Detected Stool Giardia Lamblia PCR Not Detected Stool Salmonella PCR Not Detected Stool Sapovirus (PCR) Not Detected Stl P. shigelloides PCR Not Detected Stl Shigella/EIEC PCR Not Detected St Y.enterocolitica PCR Not Detected Stool Vibrio (PCR) Not Detected Stl Vibrio cholerae PCR Not Detected Stl Norovirus GI/GII PCR Not Detected Random Vancomycin Hep Bs Antigen Hepatitis C Ab Screen Hepatitis C Antibody Diagnostic Findings CT scan personally viewed and interpreted agree with the assessment of segmental colitis, no evidence of perforation or fluid collection. Abdomen/Pelvis CT 05/08/25 11:38 EXAMINATION: CT of the abdomen and pelvis performed after the administration of IV contrast. TECHNIQUE: Helical CT images from the lung bases through the symphysis pubis were obtained with contrast. Coronal and sagittal reformatted images were generated at a workstation for further assessment. Dose reduction techniques were achieved by using automatic exposure control and/or adjustment of mA and/or kV according to patient size and/or use of iterative reconstruction technique. HISTORY: Follow-up from previous CT. Evaluate for questionable abscess. COMPARISON: 05/07/2025 and 04/27/2025. FINDINGS: Violin Repairer film demonstrates elevated right hemidiaphragm. This does not appear to be significantly changed. Nonspecific bowel gas pattern. Lung windows demonstrate slight increased bibasilar at least subsegmental atelectasis. Prominent right lower lobe peribronchial increased densities. Soft tissue windows demonstrate enteric contrast within the included distal esophagus. Normal gastric viscus is absent. Spleen is absent. Cholecystectomy changes. Poorly defined posterior right liver lobe hypodense nodule. This measures approximately 1.8 cm diameter. This not appreciably changed. Mild intrahepatic ductal dilatation. This appears to be stable. Several small sized pancreatic calcifications are noted. Prominent pancreatic duct at the level of the tail. This does not appear to be significantly changed. Small right adrenal gland nodule unchanged. Uterus is absent. Ovaries not identified. Radiopaque staple line small bowel left abdomen. Difficulty a simple appearing fluid collection at this level. This is unchanged. Question seroma. Enteric contrast extends to the level of the distal transverse colon. There appears to be eccentric short segmental wall thickening of the splenic flexure of the large bowel. Adjacent fat stranding is noted. This is best seen on image 40 of 80 on the coronal series and image 32 of 106 on the axial series. This is difficult to appreciate with certainty on most recent prior. This is not present on the April 27 exam. No discrete drainable fluid collections identified. This is difficult to separate from the tip of the pancreatic tail. At least moderate stool-filled large bowel. The appendix is within normal limits. Remaining solid and hollow organs of the abdomen and pelvis are within normal limits. No free air or free fluid. Bone windows demonstrate degenerative changes of the spine. No acute osseous process. IMPRESSION: 1. Somewhat eccentric short segmental wall thickening of the splenic flexure of the large bowel. This is new when compared to prior April 27 exam. No discrete drainable fluid collection or free air. Inflammatory or infectious segmental colitis favored. Ischemic process less likely. Etiology is uncertain. 2. Slight increasing bibasilar at least subsegmental atelectasis. Developing pneumonitis not excluded. 3. Remainder of the exam is stable. Please see above for details. Electronically signed by Ruben Ellison 05-08-2025 2:59 PM PG Care Time/CCT Total # of Minutes Spent Total Time Spent with Patient: Total time spent is greater than 50% in coordination of care (as documented) at patient's floor/unit and/or counseling patient: Coding Level of Care Code 56257 SUB INP/OBS CARE 2/35MIN Diagnoses Colitis K52.9
[2025-05-09] MEDS: POLYETHYLENE (MIRALAX) 17 GM PACK PO PRN (10:27)
[2025-05-09] MEDS ORDERED: HYDROmorphone INJ 0.5 MG/0.5 ML SYR IV PRN (11:18)
--- NOTE | 2025-05-09 14:52 | Hospitalist Progress Note ---
Date of Service May 09, 2025 Assessment & Plan (1) Acute upper abdominal pain: Plan Patient comes in with left upper quadrant pain since about 2 weeks associated with poor appetite, nausea, dry heaves. Patient does report loose stool for last 3 days and streak of blood in the wipe. Admission leukocytosis noted, admitting CTAP with wall thickening of the splenic flexure of the colon and suspected 2 cm fluid collection suggestive of abscess or contained perforation. Colitis Suspected abscess/contained perforation--ruled out Small liver mass--likely benign hemangioma Small right renal cyst Small right adrenal nodule--likely benign adenoma --CT ABD:Wall thickening of the splenic flexure of the colon, which could be due to infection or inflammatory bowel disease. Colon carcinoma is also possible. Suspected 2 cm extraluminal collection of fluid and air adjacent to the abnormal colon, which could represent an abscess or contained perforation. Surgical consultation may be prudent. Unchanged small liver mass, indeterminate in nature but likely a benign hemangioma. Elevation of the right hemidiaphragm and bilateral lung base atelectasis. Unchanged chronic pancreatitis. Small right renal cyst. Prior partial gastrectomy, cholecystectomy, splenectomy, and hysterectomy. Unchanged small right adrenal nodule, likely a benign adenoma -- Lipase 54 --CT with oral contrast: 1. Somewhat eccentric short segmental wall thickening of the splenic flexure of the large bowel. This is new when compared to prior April 27 exam. No discrete drainable fluid collection or free air. Inflammatory or infectious segmental colitis favored. Ischemic process less likely. Etiology is uncertain. Slight increasing bibasilar at least subsegmental atelectasis. Developing pneumonitis not excluded. Remainder of the exam is stable. Please see above for details. --Stool studies: Stool PCR, stool for C. difficile negative Continue empiric IV Zosyn IV fluids, pain control as needed Appreciate surgery input Started on clear liquid diet today Chronic Transaminitis Hepatitis panel pending Monitor LFTs Supratherapeutic INR History of PE Coumadin on hold INR: 3.7> 2.9 Monitor INR Other chronic conditions H/O bariatric surgery Chronic pain GERD Mood disorder Past tobacco use Continue home medications as able DVT Px: Therapeutic INR Resume warfarin as able Code Status Full code Admission and Anticipated Discharge Date Admission Date: May 07, 2025 Subjective Patient is seen and examined at bedside States feeling better today Less abdominal pain today Nausea overnight which resolved Denies any chest pain, dyspnea, dizziness Review of Systems Review of Systems: All systems reviewed & are unremarkable except as noted in Subjective Physical Exam 2 Physical Exam: Physical Exam: Vitals signs as noted above General Appearance:Overweight, no apparent distress Head: normocephalic, Atraumatic Eyes: normal inspection, EOMI Neck: supple, Trachea midline Respiratory/Chest: Normal breath sounds, CTA, No accessory muscle use Cardiovascular: S1, S2, No murmur Abdomen/GI:Soft, mild tender, Bowel sounds present, no guarding or rigidity Extremities/Musculoskeletal:normal inspection, no edema Neurologic/Psych:AAOX3, grossly no focal neurological deficits Skin: normal color, warm Results & Data Results & Data Vital Signs (Past 12 Hours) Vital Signs Temp Pulse Pulse Resp BP Pulse Ox O2 Del Method 05/09/25 11:46 36.5 C 70 18 145/85 H 94 Room Air 05/09/25 08:10 36.7 C 82 17 125/77 94 Room Air 05/09/25 07:07 88 Laboratory Results Short CBC 05/09/25 Range/Units 05:58 WBC 10.66 (4.8-10.8) K/ul Hgb 14.7 (12.0-16.0) g/dL Hct 44.0 (37.0-47.0) % Plt Count 372 (130-400) K/uL BMP 05/09/25 05:58 Sodium 138 Potassium 4.0 Chloride 107 Carbon Dioxide 23 BUN 6 Creatinine 0.72 Glucose 82 Calcium 9.3 Liver Function 05/09/25 Range/Units 05:58 Total Bilirubin 0.7 (0.2-1.0) mg/dl AST 165 H (13-39) U/L ALT 149 H (7-52) U/L Alkaline Phosphatase 270 H (34-104) U/L Albumin 3.8 (3.4-5.0) gm/dl
[2025-05-10 06:50] LABS: Alanine Aminotransferase 84.0 U/L (7-52); Albumin Globulin Ratio 1.0 (0.9-2); Albumin Level 3.2 gm/dl (3.4-5.0); Alkaline Phosphatase 197.0 U/L (34-104); Anion Gap 5.0 (3-11); Bilirubin,Total 0.8 mg/dl (0.2-1.0); Blood Urea Nitrogen 4.0 mg/dl (6-23); Calcium 9.0 mg/dl (8.6-10.3); Carbon Dioxide 27.0 mmol/L (21-32); Chloride 107.0 mmol/L (98-107); Creatinine Clr Calc Pharmacy 102.5 ml/min; Globulin 3.1 gm/dl (2.5-4.0); Glucose 78.0 mg/dl (70-99(Fasting)); Potassium 3.7 mmol/L (3.5-5.1); Sodium 139.0 mmol/L (136-145); Total Protein 6.3 gm/dl (6.0-8.3)
[2025-05-10 07:03] LABS: INR 3.0 (0.9-1.1); Prothrombin Time 30.3 Seconds (9.0-12.0)
--- NOTE | 2025-05-10 11:03 | Surgery Progress Note ---
Date of Service May 10, 2025 Assessment & Plan (1) Colitis: Plan: Colitis of the splenic flexure, unknown etiology, no evidence of perforation. No surgical intervention at this time Continue IV antibiotics Consider stool cultures, will likely need outpatient colonoscopy after inflammation dies down Advance to full liquids, can try low fiber diet for dinner if tolerates Surgery will follow peripherally, call questions or concerns Admission and Anticipated Discharge Date Admission Date: May 07, 2025 Subjective Admitted with colitis, repeat CT scan with no evidence of perforation. Tolerating clears, pain is improving, having loose bowel movements. Physical Exam 2 Constitutional: WD/WN, vitals as above + obese Respiratory: normal respiratory effort, lungs clear to auscultation Cardiovascular: RRR, no murmur, no edema Gastrointestinal (Abdomen): Inspection/Auscultation: + abdominal surgical scar Percussion/Palpation: + abdomen tender (Mild left upper quadrant tenderness to palpation, improved) and abdomen soft; no guarding and abdomen not rigid Results & Data Vital Signs (Past 12 Hours) Vital Signs Temp Pulse Pulse Resp BP Pulse Ox O2 Del Method 05/10/25 08:02 36.4 C L 60 19 107/71 93 Room Air 05/10/25 06:00 62 108/71 05/10/25 03:16 36.5 C 57 L 18 88/57 L 91 Room Air 05/09/25 23:02 36.9 C 66 20 89/68 L 91 Room Air 05/09/25 23:00 50 L Laboratory Results Laboratory Results - last 24 hr 05/09/25 05/10/25 12:04 05:22 PT 30.3 H INR 3.0 H Sodium 139 Potassium 3.7 Chloride 107 Carbon Dioxide 27 Anion Gap 5 BUN 4 L Creatinine 0.72 Est Cr Clr Drug Dosing 102.5 eGFR 94.48 BUN/Creatinine Ratio 5.6 L Glucose 78 POC Glucose 107 H Calcium 9.0 Total Bilirubin 0.8 AST 68 H ALT 84 H Alkaline Phosphatase 197 H Total Protein 6.3 Albumin 3.2 L Globulin 3.1 Albumin/Globulin Ratio 1.0 PG Care Time/CCT Total # of Minutes Spent Total Time Spent with Patient: Total time spent is greater than 50% in coordination of care (as documented) at patient's floor/unit and/or counseling patient: Coding Level of Care Code 52182 SUB INP/OBS CARE 2/35MIN Diagnoses Colitis K52.9
[2025-05-10] MEDS ORDERED: LOPERAMIDE HCL 2 MG CAP PO PRN (14:21)
--- NOTE | 2025-05-10 14:26 | Hospitalist Progress Note ---
Date of Service May 10, 2025 Assessment & Plan (1) Acute upper abdominal pain: Plan Patient comes in with left upper quadrant pain since about 2 weeks associated with poor appetite, nausea, dry heaves. Patient does report loose stool for last 3 days and streak of blood in the wipe. Admission leukocytosis noted, admitting CTAP with wall thickening of the splenic flexure of the colon and suspected 2 cm fluid collection suggestive of abscess or contained perforation. Colitis Suspected abscess/contained perforation--ruled out Small liver mass--likely benign hemangioma Small right renal cyst Small right adrenal nodule--likely benign adenoma --CT ABD:Wall thickening of the splenic flexure of the colon, which could be due to infection or inflammatory bowel disease. Colon carcinoma is also possible. Suspected 2 cm extraluminal collection of fluid and air adjacent to the abnormal colon, which could represent an abscess or contained perforation. Surgical consultation may be prudent. Unchanged small liver mass, indeterminate in nature but likely a benign hemangioma. Elevation of the right hemidiaphragm and bilateral lung base atelectasis. Unchanged chronic pancreatitis. Small right renal cyst. Prior partial gastrectomy, cholecystectomy, splenectomy, and hysterectomy. Unchanged small right adrenal nodule, likely a benign adenoma -- Lipase 54 --CT with oral contrast: 1. Somewhat eccentric short segmental wall thickening of the splenic flexure of the large bowel. This is new when compared to prior April 27 exam. No discrete drainable fluid collection or free air. Inflammatory or infectious segmental colitis favored. Ischemic process less likely. Etiology is uncertain. Slight increasing bibasilar at least subsegmental atelectasis. Developing pneumonitis not excluded. Remainder of the exam is stable. Please see above for details. --Stool studies: Stool PCR, stool for C. difficile negative Continue empiric IV Zosyn IV fluids, pain control as needed Appreciate surgery input Advance to full liquid diet Will need outpatient colonoscopy Diarrhea due to IV antibiotics, Imodium as needed Chronic Transaminitis Hepatitis panel pending Monitor LFTs LFTs trending down Supratherapeutic INR History of PE Coumadin on hold INR: 3.7> 2.9>3.0 Monitor INR Continue to hold anticoagulation today Other chronic conditions H/O bariatric surgery Chronic pain GERD Mood disorder Past tobacco use Continue home medications as able DVT Px: Therapeutic INR Resume warfarin as able Code Status Full code Admission and Anticipated Discharge Date Admission Date: May 07, 2025 Subjective Patient is seen and examined at bedside Reports nausea and has some abdominal discomfort Seem to be tolerating liquid diet Also reports having loose bowel movements No other complaints today Denies any chest pain, dyspnea, dizziness Review of Systems Review of Systems: All systems reviewed & are unremarkable except as noted in Subjective Physical Exam Physical Exam: Physical Exam: Vitals signs as noted above General Appearance:Overweight, no apparent distress Head: normocephalic, Atraumatic Eyes: normal inspection, EOMI Neck: supple, Trachea midline Respiratory/Chest: Normal breath sounds, CTA, No accessory muscle use Cardiovascular: S1, S2, No murmur Abdomen/GI:Soft, non tender, Bowel sounds present, no guarding or rigidity Extremities/Musculoskeletal:normal inspection, no edema Neurologic/Psych:AAOX3, grossly no focal neurological deficits Skin: normal color, warm Results & Data Results & Data Vital Signs (Past 12 Hours) Vital Signs Temp Pulse Resp BP Pulse Ox O2 Del Method 05/10/25 11:18 36.7 C 59 L 18 117/78 91 Room Air 05/10/25 08:02 36.4 C L 60 19 107/71 93 Room Air 05/10/25 06:00 62 108/71 05/10/25 03:16 36.5 C 57 L 18 88/57 L 91 Room Air Laboratory Results [facility] 05/10/25 05:22 Sodium 139 Potassium 3.7 Chloride 107 Carbon Dioxide 27 BUN 4 L Creatinine 0.72 Glucose 78 Calcium 9.0 Liver Function 05/10/25 Range/Units 05:22 Total Bilirubin 0.8 (0.2-1.0) mg/dl AST 68 H (13-39) U/L ALT 84 H (7-52) U/L Alkaline Phosphatase 197 H (34-104) U/L Albumin 3.2 L (3.4-5.0) gm/dl
[2025-05-10] MEDS: ADVANCED PROBIOTIC 625 MG CAPSULE PO SCH (15:10)
[2025-05-10] MEDS: SODIUM CHLORIDE 0.9% 1,000 ML IV ONE (23:16)
[2025-05-11] MEDS: SODIUM CHLORIDE 0.9% 1,000 ML IV ONE (01:23)
[2025-05-11] MEDS: ATROPINE SULFATE 0.1 MG/ML 10ML SYR IV PRN (01:36)
[2025-05-11 02:07] LABS: Hematocrit (blood only) 36.8 % (37.0-47.0); Hemoglobin 12.6 g/dL (12.0-16.0); Immature Granulocytes # (auto) 0.02 K/uL (0.01-0.20); Immature Granulocytes % (auto) 0.2 %; Mean Corpuscular Hemoglobin 31.2 pg (25.0-34.0); Mean Corpuscular Volume 91.1 fL (80.0-100.0); Platelet Count 306 K/uL (130-400); RDW Standard Deviation 49.6 fL (36.4-46.3); Red Blood Count 4.04 M/uL (4.20-5.40); White Blood Count 9.36 K/ul (4.8-10.8)
[2025-05-11 02:14] VITALS: O2SAT 93
[2025-05-11 02:25] LABS: Alanine Aminotransferase 60.0 U/L (7-52); Albumin Globulin Ratio 1.0 (0.9-2); Albumin Level 3.0 gm/dl (3.4-5.0); Alkaline Phosphatase 171.0 U/L (34-104); Anion Gap 7.0 (3-11); Bilirubin,Total 0.7 mg/dl (0.2-1.0); Blood Urea Nitrogen 5.0 mg/dl (6-23); Calcium 8.5 mg/dl (8.6-10.3); Carbon Dioxide 25.0 mmol/L (21-32); Chloride 108.0 mmol/L (98-107); Creatinine Clr Calc Pharmacy 95.9 ml/min; Globulin 2.9 gm/dl (2.5-4.0); Glucose 96.0 mg/dl (70-99(Fasting)); Magnesium 1.6 mg/dl (1.7-2.4); Potassium 3.8 mmol/L (3.5-5.1); Sodium 140.0 mmol/L (136-145); Total Protein 5.9 gm/dl (6.0-8.3)
[2025-05-11 02:34] LABS: INR 2.4 (0.9-1.1); Prothrombin Time 23.9 Seconds (9.0-12.0)
[2025-05-11 03:06] LABS: Lyme Screen Rflx Confirmation Equivocal (Negative)
[2025-05-11] MEDS: MAGNESIUM SULFATE / D5W 1 GM/100 ML BAG IV ONE ×2 (03:09→10:21)
[2025-05-11 03:48] LABS: Lyme Ab IgG 2nd Tier Confirm Positive (Negative); Lyme Ab IgM 2nd Tier Confirm Negative (Negative)
[2025-05-11 05:09] LABS: Thyroid Stimulating Hormone 2.193 uIu/ml (0.300-4.500)
[2025-05-11 10:57] LABS: Hepatitis A Antibody IgM NON-REACTIVE (NON-REACTIVE); Hepatitis B Core Antibody IgM NON-REACTIVE (NON-REACTIVE)
[2025-05-11 11:08] VITALS: BP 121/80; RESP 19; TEMP 97.9
--- NOTE | 2025-05-11 11:12 | Hospitalist Progress Note ---
Date of Service May 11, 2025 Assessment & Plan (1) Acute upper abdominal pain: Plan Patient comes in with left upper quadrant pain since about 2 weeks associated with poor appetite, nausea, dry heaves. Patient does report loose stool for last 3 days and streak of blood in the wipe. Admission leukocytosis noted, admitting CTAP with wall thickening of the splenic flexure of the colon and suspected 2 cm fluid collection suggestive of abscess or contained perforation. Colitis Suspected abscess/contained perforation--ruled out Small liver mass--likely benign hemangioma Small right renal cyst Small right adrenal nodule--likely benign adenoma --CT ABD:Wall thickening of the splenic flexure of the colon, which could be due to infection or inflammatory bowel disease. Colon carcinoma is also possible. Suspected 2 cm extraluminal collection of fluid and air adjacent to the abnormal colon, which could represent an abscess or contained perforation. Surgical consultation may be prudent. Unchanged small liver mass, indeterminate in nature but likely a benign hemangioma. Elevation of the right hemidiaphragm and bilateral lung base atelectasis. Unchanged chronic pancreatitis. Small right renal cyst. Prior partial gastrectomy, cholecystectomy, splenectomy, and hysterectomy. Unchanged small right adrenal nodule, likely a benign adenoma -- Lipase 54 --CT with oral contrast: 1. Somewhat eccentric short segmental wall thickening of the splenic flexure of the large bowel. This is new when compared to prior April 27 exam. No discrete drainable fluid collection or free air. Inflammatory or infectious segmental colitis favored. Ischemic process less likely. Etiology is uncertain. Slight increasing bibasilar at least subsegmental atelectasis. Developing pneumonitis not excluded. Remainder of the exam is stable. Please see above for details. --Stool studies: Stool PCR, stool for C. difficile negative Continue empiric IV Zosyn IV fluids, pain control as needed Appreciate surgery input Advised to get colonoscopy as outpatient. Patient understands and agrees with the plan Advance to low fiber diet today Plan to discharge home today Chronic Transaminitis Hepatitis panel negative Monitor LFTs LFTs trending down Supratherapeutic INR History of PE INR: 3.7> 2.9>3.0>2.4 Monitor INR Resume low-dose of Coumadin today Advised to follow-up with Coumadin clinic on discharge Other chronic conditions H/O bariatric surgery Chronic pain GERD Mood disorder Past tobacco use Continue home medications as able DVT Px: Warfarin Code Status Full code Disposition Home Admission and Anticipated Discharge Date Admission Date: May 07, 2025 Subjective Patient is seen and examined at bedside States feeling a lot better today Nausea, abdominal pain resolved Tolerating diet Offers no new complaints Denies any chest pain, dyspnea, dizziness Review of Systems Review of Systems: All systems reviewed & are unremarkable except as noted in Subjective Physical Exam Physical Exam: Physical Exam: Vitals signs as noted above General Appearance:Overweight, no apparent distress Head: normocephalic, Atraumatic Eyes: normal inspection, EOMI Neck: supple, Trachea midline Respiratory/Chest: Normal breath sounds, CTA, No accessory muscle use Cardiovascular: S1, S2, No murmur Abdomen/GI:Soft, non tender, Bowel sounds present, no guarding or rigidity Extremities/Musculoskeletal:normal inspection, no edema Neurologic/Psych:AAOX3, grossly no focal neurological deficits Skin: normal color, warm Results & Data Results & Data Vital Signs (Past 12 Hours) Vital Signs Temp Pulse Resp BP BP Pulse Ox O2 Del Method 05/11/25 11:07 36.6 C 64 19 121/80 93 Room Air 05/11/25 08:03 36.3 C L 62 16 131/87 93 Room Air 05/11/25 04:53 111/71 05/11/25 02:13 36.4 C L 54 L 16 97/63 L 93 Room Air 05/11/25 01:16 88/58 L 05/11/25 00:07 88/58 L Laboratory Results Short CBC 05/11/25 Range/Units 01:50 WBC 9.36 (4.8-10.8) K/ul Hgb 12.6 (12.0-16.0) g/dL Hct 36.8 L (37.0-47.0) % Plt Count 306 (130-400) K/uL BMP 05/11/25 01:50 Sodium 140 Potassium 3.8 Chloride 108 H Carbon Dioxide 25 BUN 5 L Creatinine 0.77 Glucose 96 Calcium 8.5 L Liver Function 05/11/25 Range/Units 01:50 Total Bilirubin 0.7 (0.2-1.0) mg/dl AST 42 H (13-39) U/L ALT 60 H (7-52) U/L Alkaline Phosphatase 171 H (34-104) U/L Albumin 3.0 L (3.4-5.0) gm/dl
--- NOTE | 2025-05-11 11:45 | Discharge Summary ---
Date of Service May 11, 2025 Admission HPI Per Admitting Provider 60-year-old lady with PMH of gastric bypass status for obesity, obesity class II, post gastric syndrome, constipation, gastrocolic fistula, jejunal fistula, GERD, intractable chronic migraine, iron deficiency anemia, anxiety, agoraphobia, insomnia, recurrent PE on Coumadin presents to the ED with complaint of left upper quadrant pain. Patient was apparently seen in the ED about 10 days ago where she was evaluated for left upper quadrant pain, she underwent imaging with no acute finding, she was discharged on oxycodone. Patient reports oxycodone did help for some of the pain but the pain never went away. She ran out of oxycodone last Saturday and the pain was progressively worsening. Patient reports she is also having decreased appetite, nausea and dry heaves for about 2 weeks now. Patient denies vomiting. Patient denies fever/sore throat/cough/pain or burning while passing urine. Patient does report multiple loose stools for last 3 days with streak of blood in the wipe. Patient reports quitting smoking about 10 years ago, denies alcohol and recreational drug use. Medications reviewed with the patient at bedside. Plan of care discussed with the patient in detail. Full code Admission Exam Per Admitting Provider GENERAL: Alert and oriented x3. NAD, on RA. HEENT: No pallor, no icterus. Pupils equal, round and reactive to light. Oral mucosa moist. NECK: No JVD, no neck masses. HEART: S1 and S2 heard. Regular rate and rhythm. No murmur, no gallop. RESPIRATORY SYSTEM: Normal AP diameter. No accessory muscle use. No wheezing, no crackles. ABDOMEN: Soft, bowel sounds present, LUQ tender, no distention. CENTRAL NERVOUS SYSTEM: No facial droop. Speech is clear. Obeys simple commands. Moves extremities. EXTREMITIES: No edema, no erythema seen. Principal Diagnosis Colitis Small liver mass--likely benign hemangioma Small right renal cyst Small right adrenal nodule--likely benign adenoma Discharge Data Allergies Allergy/AdvReac Type Severity Reaction Status Date / Time Sulfa (Sulfonamide Allergy Intermediate Hives Verified 09/01/23 20:13 Antibiotics) latex Allergy Mild Rash Verified 09/01/23 20:13 ciprofloxacin [From Cipro] AdvReac Intermediate Vomiting Verified 09/01/23 20:13 morphine AdvReac Intermediate Hypotension Verified 09/01/23 20:13 Consultations 05/07/25 17:58 Consult General Surgery Routine ED Decision to Admit Stat Procedures Performed Laboratory Results WBC 9.36 K/ul (4.8-10.8) 05/11/25 01:50 RBC 4.04 M/uL (4.20-5.40) L 05/11/25 01:50 Hgb 12.6 g/dL (12.0-16.0) 05/11/25 01:50 Hct 36.8 % (37.0-47.0) L 05/11/25 01:50 MCV 91.1 fL (80.0-100.0) 05/11/25 01:50 MCH 31.2 pg (25.0-34.0) 05/11/25 01:50 MCHC 34.2 g/dL (32.0-36.0) 05/11/25 01:50 RDW Std Deviation 49.6 fL (36.4-46.3) H 05/11/25 01:50 RDW Coeff of Mukul 14.9 % (11.5-14.5) H 05/11/25 01:50 Plt Count 306 K/uL (130-400) 05/11/25 01:50 MPV 10.5 fL (9.4-12.4) 05/11/25 01:50 Immature Gran % (Auto) 0.2 % 05/11/25 01:50 Neut % (Auto) 48.8 % 05/11/25 01:50 Lymph % (Auto) 33.3 % 05/11/25 01:50 [place] % (Auto) 14.2 % 05/11/25 01:50 Eos % (Auto) 2.6 % 05/11/25 01:50 Baso % (Auto) 0.9 % 05/11/25 01:50 Neut # (Auto) 4.57 K/uL (1.40-6.50) 05/11/25 01:50 Lymph # (Auto) 3.12 K/uL (1.20-3.40) 05/11/25 01:50 [place] # (Auto) 1.33 K/uL (0.11-0.59) H 05/11/25 01:50 Eos # (Auto) 0.24 K/uL (0.00-0.50) 05/11/25 01:50 Baso # (Auto) 0.08 K/uL (0.00-0.20) 05/11/25 01:50 Immature Gran # (Auto) 0.02 K/uL (0.01-0.20) 05/11/25 01:50 PT 23.9 Seconds (9.0-12.0) H 05/11/25 01:50 INR 2.4 (0.9-1.1) H 05/11/25 01:50 APTT 33 Seconds (21-31) H 05/07/25 16:03 PTT Ratio 1.2 05/07/25 16:03 Sodium 140 mmol/L (136-145) 05/11/25 01:50 Potassium 3.8 mmol/L (3.5-5.1) 05/11/25 01:50 Chloride 108 mmol/L (98-107) H 05/11/25 01:50 Carbon Dioxide 25 mmol/L (21-32) 05/11/25 01:50 Anion Gap 7 (3-11) 05/11/25 01:50 BUN 5 mg/dl (6-23) L 05/11/25 01:50 Creatinine 0.77 mg/dl (0.6-1.2) 05/11/25 01:50 Est Cr Clr Drug Dosing 95.9 ml/min 05/11/25 01:50 eGFR 87.16 05/11/25 01:50 BUN/Creatinine Ratio 6.5 (10-20) L 05/11/25 01:50 Glucose 96 mg/dl (70-99(Fasting)) 05/11/25 01:50 POC Glucose 107 mg/dl (70-99) H 05/09/25 12:04 Lactate 1.0 mmol/L (0.4-2.0) 05/11/25 01:50 Calcium 8.5 mg/dl (8.6-10.3) L 05/11/25 01:50 Phosphorus 3.7 mg/dl (2.5-4.9) 05/08/25 05:59 Magnesium 1.6 mg/dl (1.7-2.4) L 05/11/25 01:50 Total Bilirubin 0.7 mg/dl (0.2-1.0) 05/11/25 01:50 Direct Bilirubin 0.3 mg/dl (0-0.2) H 05/08/25 05:59 AST 42 U/L (13-39) H 05/11/25 01:50 ALT 60 U/L (7-52) H 05/11/25 01:50 Alkaline Phosphatase 171 U/L (34-104) H 05/11/25 01:50 Troponin I High Sens 5.3 pg/ml (0-14) 05/07/25 16:03 Total Protein 5.9 gm/dl (6.0-8.3) L 05/11/25 01:50 Albumin 3.0 gm/dl (3.4-5.0) L 05/11/25 01:50 Globulin 2.9 gm/dl (2.5-4.0) 05/11/25 01:50 Albumin/Globulin Ratio 1.0 (0.9-2) 05/11/25 01:50 Lipase 54 U/L (11-82) 05/07/25 14:03 TSH 2.193 uIu/ml (0.300-4.500) 05/11/25 01:50 Urine Color Yellow 05/07/25 17:17 Urine Appearance Clear (Clear) 05/07/25 17:17 Urine pH 7.0 (4.5-7.5) 05/07/25 17:17 Ur Specific [place] 1.013 (1.000-1.030) 05/07/25 17:17 Urine Protein Negative (Negative) 05/07/25 17:17 Urine Glucose (UA) Negative (Negative) 05/07/25 17:17 Urine Ketones Negative (Negative) 05/07/25 17:17 Urine Blood Negative (Negative) 05/07/25 17:17 Urine Nitrite Negative (Negative) 05/07/25 17:17 Urine Bilirubin Negative (Negative) 05/07/25 17:17 Urine Urobilinogen Negative (Negative) 05/07/25 17:17 Ur Leukocyte Esterase Negative (Negative) 05/07/25 17:17 Urine Comment 05/07/25 17:17 Stl C. cayetanensis PCR Not Detected (NotDetected) 05/09/25 Unknown Stool Rotavirus A PCR Not Detected (NotDetected) 05/09/25 Unknown Stl Adenov F 40/41 PCR Not Detected (NotDetected) 05/09/25 Unknown Stool Astrovirus (PCR) Not Detected (NotDetected) 05/09/25 Unknown Stool Campylobacter PCR Not Detected (NotDetected) 05/09/25 Unknown Stl C. diff Tox B Gene Negative Cdiff Gene (Neg) 05/09/25 Unknown Stl C. diff 027-[id number] NEGATIVE 05/09/25 Unknown Stool Cryptosporidium PCR Not Detected (NotDetected) 05/09/25 Unknown Stl E.coli Shiga Tox PCR Not Detected (NotDetected) 05/09/25 Unknown Stl Enterotoxigenic E PCR Not Detected (NotDetected) 05/09/25 Unknown Stool EPEC (PCR) Not Detected (NotDetected) 05/09/25 Unknown Stool EAEC (PCR) Not Detected (NotDetected) 05/09/25 Unknown Stl E. histolytica PCR Not Detected (NotDetected) 05/09/25 Unknown Stool Giardia Lamblia PCR Not Detected (NotDetected) 05/09/25 Unknown Stool Salmonella PCR Not Detected (NotDetected) 05/09/25 Unknown Stool Sapovirus (PCR) Not Detected (NotDetected) 05/09/25 Unknown Stl P. shigelloides PCR Not Detected (NotDetected) 05/09/25 Unknown Stl Shigella/EIEC PCR Not Detected (NotDetected) 05/09/[address].enterocolitica PCR Not Detected (NotDetected) 05/09/25 Unknown Stool Vibrio (PCR) Not Detected (NotDetected) 05/09/25 Unknown Stl Vibrio cholerae PCR Not Detected (NotDetected) 05/09/25 Unknown Stl Norovirus GI/GII PCR Not Detected (NotDetected) 05/09/25 Unknown Random Vancomycin 8.7 mcg/ml (10-20) L 05/09/25 05:58 Lyme Disease Screen Equivocal (Negative) H 05/11/25 01:50 Lyme Tier 2 IgG Confirm Positive (Negative) H 05/11/25 01:50 Lyme Tier 2 IgM Confirm Negative (Negative) 05/11/25 01:50 Hepatitis A IgM Ab NON-REACTIVE (NON-REACTIVE) 05/08/25 05:59 Hep Bs Antigen Negative (Negative) 05/08/25 05:59 Hep B Core IgM Ab NON-REACTIVE (NON-REACTIVE) 05/08/25 05:59 Hepatitis C Ab Screen Negative (Negative) 05/08/25 05:59 Hepatitis C Antibody Negative (Negative) 05/08/25 05:59 Impressions Abdomen/Pelvis CT 05/08/25 11:38 EXAMINATION: CT of the abdomen and pelvis performed after the administration of IV contrast. TECHNIQUE: Helical CT images from the lung bases through the symphysis pubis were obtained with contrast. Coronal and sagittal reformatted images were generated at a workstation for further assessment. Dose reduction techniques were achieved by using automatic exposure control and/or adjustment of mA and/or kV according to patient size and/or use of iterative reconstruction technique. HISTORY: Follow-up from previous CT. Evaluate for questionable abscess. COMPARISON: 05/07/2025 and 04/27/2025. FINDINGS: Radar Engineer film demonstrates elevated right hemidiaphragm. This does not appear to be significantly changed. Nonspecific bowel gas pattern. Lung windows demonstrate slight increased bibasilar at least subsegmental atelectasis. Prominent right lower lobe peribronchial increased densities. Soft tissue windows demonstrate enteric contrast within the included distal esophagus. Normal gastric viscus is absent. Spleen is absent. Cholecystectomy changes. Poorly defined posterior right liver lobe hypodense nodule. This measures approximately 1.8 cm diameter. This not appreciably changed. Mild intrahepatic ductal dilatation. This appears to be stable. Several small sized pancreatic calcifications are noted. Prominent pancreatic duct at the level of the tail. This does not appear to be significantly changed. Small right adrenal gland nodule unchanged. Uterus is absent. Ovaries not identified. Radiopaque staple line small bowel left abdomen. Difficulty a simple appearing fluid collection at this level. This is unchanged. Question seroma. Enteric contrast extends to the level of the distal transverse colon. There appears to be eccentric short segmental wall thickening of the splenic flexure of the large bowel. Adjacent fat stranding is noted. This is best seen on image 40 of 80 on the coronal series and image 32 of 106 on the axial series. This is difficult to appreciate with certainty on most recent prior. This is not present on the April 27 exam. No discrete drainable fluid collections identified. This is difficult to separate from the tip of the pancreatic tail. At least moderate stool-filled large bowel. The appendix is within normal limits. Remaining solid and hollow organs of the abdomen and pelvis are within normal limits. No free air or free fluid. Bone windows demonstrate degenerative changes of the spine. No acute osseous process. IMPRESSION: 1. Somewhat eccentric short segmental wall thickening of the splenic flexure of the large bowel. This is new when compared to prior April 27 exam. No discrete drainable fluid collection or free air. Inflammatory or infectious segmental colitis favored. Ischemic process less likely. Etiology is uncertain. 2. Slight increasing bibasilar at least subsegmental atelectasis. Developing pneumonitis not excluded. 3. Remainder of the exam is stable. Please see above for details. Electronically signed by Ruben Ellison 05-08-2025 2:59 PM Ordered Studies 05/07/25 14:44 CT abd pelvis IV con only Stat 05/08/25 11:38 CT abd pelvis oral and IV con Urgent Hospital Course (1) Acute upper abdominal pain: Plan Patient comes in with left upper quadrant pain since about 2 weeks associated with poor appetite, nausea, dry heaves. Patient does report loose stool for last 3 days and streak of blood in the wipe. Admission leukocytosis noted, admitting CTAP with wall thickening of the splenic flexure of the colon and suspected 2 cm fluid collection suggestive of abscess or contained perforation. Colitis Suspected abscess/contained perforation--ruled out Small liver mass--likely benign hemangioma Small right renal cyst Small right adrenal nodule--likely benign adenoma --CT ABD:Wall thickening of the splenic flexure of the colon, which could be due to infection or inflammatory bowel disease. Colon carcinoma is also possible. Suspected 2 cm extraluminal collection of fluid and air adjacent to the abnormal colon, which could represent an abscess or contained perforation. Surgical consultation may be prudent. Unchanged small liver mass, indeterminate in nature but likely a benign hemangioma. Elevation of the right hemidiaphragm and bilateral lung base atelectasis. Unchanged chronic pancreatitis. Small right renal cyst. Prior partial gastrectomy, cholecystectomy, splenectomy, and hysterectomy. Unchanged small right adrenal nodule, likely a benign adenoma -- Lipase 54 --CT with oral contrast: 1. Somewhat eccentric short segmental wall thickening of the splenic flexure of the large bowel. This is new when compared to prior April 27 exam. No discrete drainable fluid collection or free air. Inflammatory or infectious segmental colitis favored. Ischemic process less likely. Etiology is uncertain. Slight increasing bibasilar at least subsegmental atelectasis. Developing pneumonitis not excluded. Remainder of the exam is stable. Please see above for details. --Stool studies: Stool PCR, stool for C. difficile negative Continue empiric IV Zosyn IV fluids, pain control as needed Appreciate surgery input Advised to get colonoscopy as outpatient. Patient understands and agrees with the plan Advance to low fiber diet today Plan to discharge home today Chronic Transaminitis Hepatitis panel negative Monitor LFTs LFTs trending down Supratherapeutic INR History of PE INR: 3.7> 2.9>3.0>2.4 Monitor INR Resume low-dose of Coumadin today Advised to follow-up with Coumadin clinic on discharge Other chronic conditions H/O bariatric surgery Chronic pain GERD Mood disorder Past tobacco use Continue home medications as able DVT Px: Warfarin Code Status Full code Disposition Home Total Time Total Time Spent Total Time Spent (In Minutes): 51 minutes Discharge Plan Discharge Items Patient Disposition: Home - Self-Care Reason For Visit: LUQ ABD PAIN Discharge Diagnosis: Colitis Small liver mass--likely benign hemangioma Small right renal cyst Small right adrenal nodule--likely benign adenoma Condition on Discharge: Fair Activity: Per Instructions section Exercise/Sports: Gradually increase as tolerated Non-emergency contact: Primary Care Provider and [employer] Call non-emergency contact if: you have any medication questions, your symptoms worsen, your pain is concerning for you and you have a fever Follow-up/Referrals: Annabelle Ramirez CRNP [Nurse Practitioner] - 05/17/25 1:00 pm (Date & Time 05/17/2025 1:00 PM Provider: Annabelle Ramirez CRNP Gastroenterology, [facility] ) Jessee Wisdom MD [Primary Care Provider] - 05/14/25 12:20 pm (Date & Time 05/14/2025 12:20 PM Provider: Shelly Castaneda MD [facility], [facility] ) Diet: Low Fiber Addtl Attending Provider Instructions: -- Follow-up with your primary care physician on 05/14/2025 12:20 PM -- Follow-up with your water pollution control inspector PEGGY Ramon on 05/17/2025 1:00 PM -- Follow-up with Coumadin clinic in 2-3 days as recommended for monitoring your PT/INR and adjusting Coumadin dose. -- Obtain colonoscopy as outpatient is recommended. -- Complete the antibiotic course Augmentin as prescribed -- You are incidentally found to have small liver mass, Small right renal cyst and Small right adrenal nodule on CT scan. Radiologist believes that they are benign. Discussed with your primary care physician for further recommendations. Seek immediate medical attention if your symptoms reoccur or worsen Please review medication list provided on discharge for any medication changes as instructed. Please call if you have any questions or problems. You can reach a [facility] hospitalist on duty at [facility] 24 hours a day by calling [phone] Pending Studies at Discharge: No Stand-Alone Forms: My [facility], Smoking Cessation Medications and DC Order Prescriptions: New loperamide 2 mg Capsule 2 mg PO Q8H PRN (Reason: loose stool) Qty: 30 0RF magnesium chloride [Mag 64] 64 mg Tablet,Delayed Release (Dr/Ec) 64 mg PO BID Qty: 10 0RF Advanced Probiotic 625 mg (10 billion cell) Capsule 1 cap PO DAILY Qty: 10 0RF amoxicillin-pot clavulanate [Augmentin] 500-125 mg tablet 1 tab PO BID Qty: 7 0RF Continued duloxetine 60 mg capsule,delayed release(DR/EC) 60 mg PO QAM Ocuvite Adult 50 Plus 250 mg (90 mg-160 mg) Capsule 1 cap PO QAM metoprolol succinate 25 mg tablet extended release 24 hr 12.5 mg PO QAM bupropion HCl 300 mg tablet extended release 24 hr 300 mg PO QAM lubiprostone 24 mcg capsule 24 mcg PO BIDM Rx Instructions: take with morning and evening meals oxycodone 5 mg tablet 5 mg PO BID PRN (Reason: pain,severe) eletriptan 40 mg tablet 20 - 40 mg PO UD Rx Instructions: take 1/2 to 1 tablet by mouth at start of headache & may repeat once after 2 hours-take up to 2 days per week Creon 3,000-9,500- 15,000 unit capsule,delayed release(DR/EC) 1 cap PO QID Rx Instructions: morning,noon,evening and before bedtime warfarin 1 mg Tablet 0.5 - 1 mg PO QPM Rx Instructions: as per coumadin clinic ketorolac 10 mg Tablet 10 mg PO Q6H PRN (Reason: Headache) Rx Instructions: take 1 tablet at start of headache,may repeat every 6 hours. take up to 2 days per week as needed for head pain acetaminophen 500 mg Tablet 1,000 mg PO DAILY PRN (Reason: as directed) Align Dualbiotic 500 million cell-1.25 gram Tablet,Chewable 1 tab PO AMPM One Daily Women 50 Plus 400-120 mcg-mg Tablet 1 tab PO QAM polyethylene glycol 3350 [Miralax] 17 gram Powder In Packet 17 g PO BID tizanidine 4 mg tablet 8 - 12 mg PO HS amitriptyline 50 mg tablet 50 mg PO HS metoclopramide HCl 5 mg tablet 5 - 10 mg PO DIRECTED Rx Instructions: Take up to 3days week. buspirone 10 mg tablet 10 mg PO AMHS omeprazole 20 mg capsule,delayed release(DR/EC) 20 mg PO BIDM Rx Instructions: take with morning and evening meals furosemide 20 mg tablet 20 mg PO AMHS ondansetron 4 mg tablet,disintegrating 4 - 8 mg translingual Q8 PRN (Reason: Nausea) fluticasone propionate 50 mcg/actuation spray,suspension 2 spray INTRANASAL QAM zolpidem 12.5 mg tablet,ext release multiphase 12.5 mg PO HS calcium carbonate-vitamin D3 [Calcium 600 + D(3)] 600 mg-10 mcg (400 unit) Tablet 1 tab PO BID Emgality Pen 120 mg/mL pen injector 240 mg SUBCUT MONTHLY Discharge Orders: Discharge Order (Routine); Ordered 05/11/25 Ordered By: Charles Small Admission Data Admit Date/Time: 05/07/25 18:23 Attending Provider: Charles Small Admit Provider: Sheree Maldonado Primary Care Provider: Jessee Wisdom Other Providers: Sheree Maldonado; Charles Izquierdo Other Interventions: Discharge Summary Assessment (RN) Last Done: 05/11/25 12:09
[2025-05-11 12:10] VITALS: PULSE 64
[2025-05-11] MEDS ORDERED: WARFARIN SOD 0.5 MG TAB PO SCH (16:00)
[2025-05-11] MEDS ORDERED: MAGNESIUM CHLORIDE W/CALCIUM 64MG DELAYED REL TAB PO SCH (21:00)
--- NOTE | 2025-05-11 21:59 | Electrocardiogram Report ---
Test Reason : Blood Pressure : */* mmHG Vent. Rate : 58 BPM Atrial Rate : 58 BPM P-R Int : 182 ms QRS Dur : 90 ms QT Int : 456 ms P-R-T Axes : 46 -3 27 degrees QTcB Int : 447 ms Sinus bradycardia Otherwise normal ECG When compared with ECG of 07-May-2025 15:42, Nonspecific T wave abnormality has improved Confirmed by Prasad Clifton ([id number]) on 05/11/2025 9:59:26 PM Referred By: REFERRED SELF Confirmed By: Prasad Clifton
== END 2025-05-11 14:19 | disposition home or self-care (01) | DRG 392 ==
LOC: ED 12:51 → 4W 18:23 → SUATTDRO 18:23 → 4W 20:44